=== PATIENT | male | born 1955 | race Caucasian/White ===

== ENCOUNTER 2019-06-18 20:31 | Inpatient (IN) | payer OTHER, SELFPAY ==
--- NOTE | ~2019-06-18 | XR_ITS ---
EXAMINATION: XR chest 2V 06/18/2019 21:31 INDICATION: Chest pain for one week PROCEDURE: 2 view chest COMPARISON: 07/26/2012 FINDINGS: The lungs are clear. The cardiomediastinal silhouette is within normal limits. There are no pleural effusions. There is no pneumothorax suspected. IMPRESSION: 1: NO ACUTE CARDIOPULMONARY DISEASE. Reviewed, dictated and finalized at location A. EMARK AFFIXER
--- NOTE | ~2019-06-18 | XR_ITS ---
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 There is old fracture deformit y of the calcaneus. No acute fracture or traumatic malalignment. Lisfranc joint intact. No focal soft tissue abnormality. Small degenerative calcaneal enthesophyte. Impression: 1: No acute fracture. No evidence for osteomyelitis. If there is concern for osteomyelitis clinically , correlation with MRI recommended. Reviewed, dictated and finalized at location A. COORDINATOR Impression: 1: No acute fracture. No evidence for osteomyelitis. If there is concern for os teomyelitis clinically, correlation with MRI recommended.
[2019-06-18 20:34] VITALS: BP 158/94; PULSE 128; RESP 18; TEMP 36.4; O2SAT 98
[2019-06-18 20:39] VITALS: BP 146/95; PULSE 124; RESP 20; O2SAT 98
--- NOTE | 2019-06-18 20:50 | ED.EXTPRO ---
HPI - Extremity Problem General Chief complaint: Extremity Injury, Lower Stated complaint: left foot discoloration Time Seen by Provider: 06/18/19 20:40 Source: patient and RN notes reviewed Mode of arrival: ambulatory Limitations: no limitations History of Present Illness HPI Narrative: Pt is a 64 y/o male with a Hx of DM and diabetic retinopathy, who presents to the ED with c/o swelling and pain in his LLE for the past week. He notes that he has had a wound on his lt great toe for awhile, but states that he has noticed increased swelling and pain in his lt foot over the past week. Pt notes that his pain has begun to radiate into his lt lower leg. He describes his pain as sharp, and notes that bearing weight on his lt leg aggravates his pain. Pt reports intermittent CP, but last episode of chest pain was several days ago. Pt also reports erythema on his lt foot starting several days ago as well as nausea, but currently denies any vomiting, fever, chills, CP, or SOB. He notes that he is prescribed Metformin, Glipizide, and insulin for his DM, but states that he hasn't taken these medications for the past several weeks. Pt notes that his BS has been rather sporadic recently. MD Complaint: extremity pain and extremity swelling Onset (ago): week(s) (1) Location: left and lower extremity Quality: sharp Radiation: proximal (lt lower leg) Exacerbating factors: weight bearing Associated symptoms: other (nausea; erythema on lt foot; wound on lt great toe) Related Data Allergies Allergy/AdvReac Type Severity Reaction Status Date / Time No Known Allergies Allergy Mild Unverified 06/18/19 20:44 Review of Systems Review of Systems: All systems reviewed & are unremarkable except as noted in HPI and below Constitutional: Constitutional: Denies chills, Denies fever(s), Denies headache(s) and Denies weakness Cardiovascular: Cardiovascular: Denies chest pain and Denies dyspnea Respiratory: Respiratory: Denies cough and Denies dyspnea Gastrointestinal: Gastrointestinal: Reports nausea Musculoskeletal: Musculoskeletal: Reports other (lt foot pain radiating into lt lower leg; swelling in lt foot) Integumentary/Breasts: Skin/Breast: Reports erythema (on lt foot) and Reports wounds (lt great toe) PMFSH Past Medical History Medical History Anxiety Atrial fibrillation Depression Diabetes Diabetic retinopathy Hepatitis C HLD (hyperlipidemia) HTN (hypertension) Surgical History Surgical History Hx of appendectomy Hx of tonsillectomy Family History Family History (Updated 12/14/15 @ 23:19 by DOCTOR UNKNOWN) Father Family history of diabetes mellitus in first degree relative Other Family history of coronary artery disease Social History Social History Smoking status: Heavy tobacco smoker Second hand tobacco smoke exposure: Yes Alcohol intake: current Gender identity (if verbalized by the patient): Male Exam Const: General: no acute distress and well developed Orientation/consciousness: oriented to person, oriented to place, oriented to time and patient oriented x3 HENMT: Head: normocephalic Resp: Effort & Inspection: normal respiratory effort Auscultation: clear to auscultation bilaterally Cardio: Rate: tachycardic Rhythm: regular rhythm GI: GI Palp: No abdominal tenderness and Yes Soft to palpation Skin: General skin exam: normal color and turgor normal Neuro: General: oriented to person, oriented to place, oriented to time and patient oriented x3 Cognition (Neuro): normal cognition Extrem: General: normal to inspection Left lower extremity: foot (erythema extending from lt great toe into lt foot and lt lower leg) Psych: Appearance: grossly normal Mental Status: mental status grossly normal Affect: normal affect Course Consultations Consultation #1: Discuss
--- NOTE | 2019-06-18 20:54 | ECG_ITS ---
Measurements Intervals [place] Rate: 115 P: 72 MD: 148 QRS: 44 QRSD: 86 T: 83 QT: 317 QTc: 439 Interpretive Statements SINUS TACHYCARDIA POSSIBLE LEFT ATRIAL ENLARGEMENT BORDERLINE T WAVE ABNORMALITY- LATERAL LEADS ABNORMAL ECG Electronically Signed On 06-19-2019 7:57:58 S[employer]IOR [employer] ENG[employer] by Noble Pedraza D.O.
[2019-06-18 21:11] LABS: Glucose Point of Care 468 (65-105)
[2019-06-18 21:17] LABS: Basophils Percent Auto 0.4 % (0.2-1.2); Eosinophils Absolute Auto 0.2 K/mm3 (0-0.3); Eosinophils Percent Auto 2.2 % (0-4.4); Hematocrit 45.6 % (42.0-52.0); Hemoglobin 15.5 g/dL (14.0-18.0); Immature Granulocyte Absolute 0.02 K/mm3 (0.00-0.031); Immature Granulocyte Percent A 0.2 % (0-0.5); Lymphocytes Absolute Auto 1.34 K/mm3 (0.9-3.2); Lymphocytes Percent Auto 16.6 % (18.3-44.2); Mean Corpuscular Volume 85.4 fl (80-100); Mean Platelet Volume 10.6 fl (7.4-10.4); Monocytes Absolute Auto 0.6 K/mm3 (0.1-0.6); Monocytes Percent Auto 7.2 % (2.6-8.5); Neutrophils Absolute Auto 5.9 K/mm3 (1.3-6.7); Neutrophils Percent Auto 73.4 % (45.5-73.1); Platelet Count Result 216 k/mm3 (150-375); Red Blood Count 5.34 M/mm3 (4.6-6.20); Red Cell Distribution Width 12.7 % (11.5-14.5); White Blood Count 8.1 K/mm3 (4.5-10.0)
[2019-06-18 21:31] LABS: Lactic Acid Reflex 1.5 mmol/L (0.7-2.1)
[2019-06-18 21:35] LABS: Alanine Aminotransferase 66 U/L (4-50); Albumin Level 4.5 g/dL (3.5-5.1); Alkaline Phosphatase 171 U/L (38-126); Aspartate Amino Transferase 60 U/L (17-59); Bilirubin,Total 0.7 mg/dL (0.2-1.3); Blood Urea Nitrogen 16 mg/dL (9-20); CRP 8.4 mg/dL (<1.0); Calcium 9.6 mg/dL (8.4-10.2); Carbon Dioxide 26 mmol/L (22-30); Chloride 91 mmol/L (98-107); Estimated CRCL calculation 83 ml/min; Estimated Glomerular Filt Rate > 60; Glucose 483 mg/dL (75-110); Potassium 4.2 mmol/L (3.4-5.0); Sodium 132 mmol/L (137-145)
[2019-06-18 21:39] LABS: Erythrocyte Sedimentation Rate 27 mm/hr (0-20)
[2019-06-18 21:43] LABS: Troponin I < 0.012 ng/mL (0.000-0.034)
[2019-06-18] MEDS: INSULIN HUMAN REGULAR (*BKC) 100 UNITS/ML 10 UNITS IV PUSH (21:48)
[2019-06-18] MEDS: SODIUM CHLORIDE 0.9% IV 1,000 ML 999 ML IV CONT (21:49)
[2019-06-18 22:38] VITALS: BP 138/87; PULSE 109; RESP 18; O2SAT 99
[2019-06-18 23:25] VITALS: BP 138/87; PULSE 115; RESP 18; O2SAT 97
[2019-06-18 23:26] LABS: Glucose Point of Care 415 (65-105)
--- NOTE | 2019-06-18 23:27 | PC.NURSE ---
Report taken from Katharine BLACKWELL
[2019-06-19 00:12] VITALS: BP 144/85; PULSE 112; RESP 22; TEMP 36.8; O2SAT 98; BMI 26.3
[2019-06-19 00:37] LABS: Glucose Point of Care 341 (65-105)
[2019-06-19 01:05] LABS: Troponin I < 0.012 ng/mL (0.000-0.034)
--- NOTE | 2019-06-19 01:09 | ADMGEN ---
This patient, Humberto Helms, was admitted to 2 Medical Room 259-01 06/18/2019 @ 8240. Patient/family oriented to hospital policies and general routines including ID bracelet, bed and alarms, visiting hours, pain management, procedures, bathroom and other care routines, personal items, smoking policy, room service/diet, and visiting hours. Valuables list has been completed. Information on how to activate the Rapid Response Team has been discussed. Patient/Family are encouraged to report perceived risks to care and to ask questions if they do not understand what they are told or what they should do.
[2019-06-19 03:50] LABS: Troponin I < 0.012 ng/mL (0.000-0.034)
[2019-06-19] MEDS: INSULIN ASPART (*BKC) 100 UNITS/ML SUB-Q ×4 (04:21→16:58)
[2019-06-19 04:25] LABS: Glucose Point of Care 412 (65-105)
[2019-06-19 06:00] VITALS: BP 112/70; PULSE 106; RESP 18; TEMP 36.6; O2SAT 94
[2019-06-19 08:40] LABS: Glucose Point of Care 361 (65-105)
[2019-06-19 12:07] LABS: Glucose Point of Care 396 (65-105)
[2019-06-19 14:00] VITALS: BP 116/73; PULSE 103; RESP 16; TEMP 36.4; O2SAT 95
--- NOTE | 2019-06-19 15:54 | PM.IMHP ---
H&P: HPI History of Present Illness Chief complaint: left foot cellulitis Narrative: 64 y/o male with a Hx of DM and diabetic retinopathy, who presents to the ED with c/o swelling and pain in his LLE for the past week. Pt has a sore on the bottom of his left foot big toe noticed it one week ago redness went up his foot and leg. pt had severe pain the the left leg so that he could not bear and he came in for evaluation. Pt states he is a DM but is not good with taking his medications. XRay of foot shows no osteomyeltis. CXR nil acute. Review of Systems Review of Systems: All systems reviewed & are unremarkable except as noted in HPI and below Musculoskeletal: Comments: left leg pain, left foot pain and redness PMFSH Past Medical History Medical History Anxiety Atrial fibrillation Depression Diabetes Diabetic retinopathy Hepatitis C HLD (hyperlipidemia) HTN (hypertension) Surgical History Surgical History Hx of appendectomy Hx of tonsillectomy Family History Family History Father Family history of diabetes mellitus in first degree relative Other Family history of coronary artery disease Social History Social History Smoking packs per day: 1 Smoking cigarettes per day: 20.0 Years smoked: 53 Smoking pack-years: 53.00 Smoking status: Current every day smoker Tobacco type: cigarettes Second hand tobacco smoke exposure: Yes Alcohol intake: never Substance use: former Substance use type: does not use and former substance user Other substance usage details: pt states he has used everything in the past. Nothing for the past year Gender identity (if verbalized by the patient): Male Meds Home Medications and Allergies Home Medications Medication Instructions Recorded Confirmed Type glimepiride 4 mg PO DAILY 06/19/19 06/19/19 History insulin glargine [Basaglar KwikPen 6 unit SUBCUT DAILY 06/19/19 06/19/19 History U-100 Insulin] metformin 1,000 mg PO BID 06/19/19 06/19/19 History pravastatin 10 mg PO DAILY 06/19/19 06/19/19 History Allergies Allergy/AdvReac Type Severity Reaction Status Date / Time No Known Allergies Allergy Mild Unverified 06/18/19 20:44 Vital Signs Vital Signs - 24 hr 06/18/19 20:34 06/18/19 20:39 06/18/19 22:38 Temperature 36.4 C L Pulse Rate 128 H 124 H 109 H Respiratory Rate 18 20 18 Blood Pressure 158/94 H 146/95 H 138/87 Pulse Oximetry 98 98 99 06/18/19 23:25 06/19/19 00:12 06/19/19 06:00 Temperature 36.8 C 36.6 C Pulse Rate 115 H 112 H 106 H Respiratory Rate 18 22 H 18 Blood Pressure 138/87 144/85 H 112/70 Pulse Oximetry 97 98 94 06/19/19 14:00 Temperature 36.4 C Pulse Rate 103 H Respiratory Rate 16 Blood Pressure 116/73 Pulse Oximetry 95 Exam Const: General: well developed Nutritional Appearance: well nourished HENMT: Head: normocephalic Eyes: General: appearance normal, both eyes and all related structures Pupils: Equal, round and reactive pupils present Neck: Neck: supple Chest: Chest palpation & inspection: normal inspection of the chest Resp: Effort & Inspection: normal respiratory effort Auscultation: clear to auscultation bilaterally Cardio: Jugular venous distension: no JVD Rhythm: regular rhythm Heart sounds: S1 normal heart sound present and S2 normal heart sound present GI: Inspection: normal to inspection GI Palp: No abdominal tenderness, Yes Soft to palpation and No Tenderness to palpation present (GI) Auscultation: normal bowel sounds : General: Yes no CVA tenderness Back/Spine/Pelvis: Back: no CVA tenderness Skin: General skin exam: normal color and dry skin Neuro: Cranial nerves: Yes CN's II-XII intact bilaterally and Yes Equal, round and reactive pupils pres
[2019-06-19 16:59] LABS: Glucose Point of Care 380 (65-105)
[2019-06-19] MEDS: metFORMIN HCL 500 MG TABLET 1000 MG PO (17:00)
[2019-06-19] MEDS: ENOXAPARIN 40 MG/0.4 ML SYRINGE SUB-Q (17:00)
[2019-06-19 20:40] LABS: Glucose Point of Care 316 (65-105)
[2019-06-19 22:00] VITALS: BP 125/71; PULSE 110; RESP 18; TEMP 36.1; O2SAT 93
[2019-06-20 06:00] VITALS: BP 127/78; PULSE 101; RESP 16; TEMP 36; O2SAT 93
[2019-06-20 07:27] LABS: Hematocrit 38.6 % (42.0-52.0); Mean Corpuscular HGB Conc 33.7 g/dl (32-36); Mean Corpuscular Hemoglobin 29.1 pg (26-34); Mean Corpuscular Volume 86.4 fl (80-100); Mean Platelet Volume 10.9 fl (7.4-10.4); Platelet Count Result 194 k/mm3 (150-375); Red Blood Count 4.47 M/mm3 (4.6-6.20); Red Cell Distribution Width 12.7 % (11.5-14.5); White Blood Count 7.3 K/mm3 (4.5-10.0)
[2019-06-20 07:31] LABS: Blood Urea Nitrogen 14 mg/dL (9-20); Calcium 8.5 mg/dL (8.4-10.2); Carbon Dioxide 23 mmol/L (22-30); Chloride 100 mmol/L (98-107); Estimated CRCL calculation 93 ml/min; Estimated Glomerular Filt Rate > 60; Glucose 301 mg/dL (75-110); Potassium 3.7 mmol/L (3.4-5.0); Sodium 135 mmol/L (137-145)
[2019-06-20] MEDS: INSULIN GLARGINE (*BKC) 100 UNITS/ML 6 UNITS SUB-Q (07:47)
[2019-06-20] MEDS: INSULIN ASPART (*BKC) 100 UNITS/ML SUB-Q ×2 (07:48→11:52)
[2019-06-20] MEDS: metFORMIN HCL 500 MG TABLET 1000 MG PO ×2 (07:50→17:23)
[2019-06-20 07:51] LABS: Glucose Point of Care 320 (65-105)
[2019-06-20] MEDS: PRAVASTATIN SODIUM 10 MG TABLET PO (07:51)
[2019-06-20] MEDS: GLIMEPIRIDE 2 MG TABLET 4 MG PO (07:51)
[2019-06-20 10:32] LABS: Hemoglobin A1C > 14.0 % (<5.7)
[2019-06-20 11:39] LABS: Glucose Point of Care 243 (65-105)
[2019-06-20] MEDS: SILVERGEL (ELTA) 45 ML 1 APPLIC TOPICAL (11:54)
[2019-06-20 13:15] VITALS: BMI 26.3
[2019-06-20 14:00] VITALS: BP 131/75; PULSE 108; RESP 16; TEMP 36.4; O2SAT 95
--- NOTE | 2019-06-20 15:56 | PM.IMPN ---
Progress Note: A&P Assessment and Plan (1) Cellulitis of great toe of left foot: Code(s): L03.032 - Cellulitis of left toe Status: Acute Assessment and Plan: Patient is 63-year-old male with history of uncontrolled diabetes with A1c of greater than 14 and diabetic neuropathy patient had been incarcerated is not seen a physician sometime presented emergency department with a complaint of left lower extremity rates knees painful and sore present is found to have a cellulitis patient started on Zosyn states is feeling better pain and redness is improving denies any fever or chills, patient is seen by wound team and further recommendation to (2) Anxiety: Code(s): F41.9 - Anxiety disorder, unspecified Status: Acute Assessment and Plan: Appears stable presently, i do not see any anxiety medications on him. However patient is clinically stable (3) Diabetes: Code(s): E11.9 - Type 2 diabetes mellitus without complications Status: Acute Assessment and Plan: Patient with uncontrolled diabetes with hemoglobin A1c of greater than 14 he is only taking metformin at will consult healthcare educator for further recommendation (4) Hepatitis C: Code(s): B19.20 - Unspecified viral hepatitis C without hepatic coma Status: Chronic Assessment and Plan: Chronic and stable (5) HLD (hyperlipidemia): Code(s): E78.5 - Hyperlipidemia, unspecified Status: Acute Assessment and Plan: Pt is on statin continue home medication Subjective Date/time seen: 06/20/19 15:56 Patient is 63-year-old male with history of uncontrolled diabetes with A1c of greater than 14 and diabetic neuropathy patient had been incarcerated is not seen a physician sometime presented emergency department with a complaint of left lower extremity rates knees painful and sore present is found to have a cellulitis patient started on Zosyn states is feeling better pain and redness is improving denies any fever or chills Review of Systems Review of Systems: All systems reviewed & are unremarkable except as noted in HPI and below Exam Narrative: Exam Narrative: Patient appears chronically ill older than his age Const: General: comfortable and no acute distress HENMT: General nose exam: Normal nares present Mouth: Yes moist mucous membranes Eyes: General: appearance normal, both eyes and all related structures Sclera: sclerae normal Neck: Neck: supple Resp: Other: Bilateral fair air entry with harsh breath sounds Cardio: Rate: regular rate Rhythm: regular rhythm GI: Auscultation: normal bowel sounds Skin: Other: left toe with wound dressing Neuro: Speech: normal speech Other: patient with diabetes neuropathy Extrem: Other: Patient left foot with wound dressing and erythema Psych: Affect: Anxious affect present Objective Data Vital Signs Vital Signs: Vital Signs - 24 hr 06/19/19 22:00 06/20/19 06:00 06/20/19 14:00 Temperature 96.9 F L 96.8 F L 97.6 F Pulse Rate 110 H 101 H 108 H Respiratory Rate 18 16 16 Blood Pressure 125/71 127/78 131/75 Pulse Oximetry 93 93 95 Intake/Output Intake/Output: Intake & Output 06/17/19 06/18/19 06/19/19 06/20/19 23:59 23:59 23:59 23:59 Intake Total 1050 4170 1130 Output Total 2200 Balance 1050 1970 1130 Meds/Results Medications: Active Medications Generic Name Dose Route Start Last Admin Trade Name Freq PRN Reason Stop Dose Admin Dextrose 12.5 gm 06/19/19 02:16 Dextrose 50% Syringe IV PUSH PRN PRN Hypoglycemia Protocol Glimepiride 4 mg 06/20/19 08:00 06/20/19 07:51 Amaryl PO 4 mg DAILY@0800 OMI Administration Glucagon 1 mg 06/19/19 02:16 Glucagon For Inj IM PRN PRN Hypoglycemia Protocol Glucose 15 gm 06/19/19 02:16 Glutose 15 PO PRN PRN Hypoglycemia Protocol Piperacillin/Tazobactam/Dextrose 3.375 gm in 50 mls @ 100 mls/hr 06/19/19 06:0
[2019-06-20 17:28] LABS: Glucose Point of Care 177 (65-105)
[2019-06-20 19:59] LABS: Glucose Point of Care 266 (65-105)
[2019-06-20 22:00] VITALS: BP 145/89; PULSE 102; RESP 16; TEMP 36.7; O2SAT 98
[2019-06-21 05:41] LABS: Basophils Percent Auto 0.3 % (0.2-1.2); Eosinophils Absolute Auto 0.2 K/mm3 (0-0.3); Eosinophils Percent Auto 2.9 % (0-4.4); Hematocrit 37.3 % (42.0-52.0); Hemoglobin 12.6 g/dL (14.0-18.0); Immature Granulocyte Absolute 0.02 K/mm3 (0.00-0.031); Immature Granulocyte Percent A 0.3 % (0-0.5); Lymphocytes Percent Auto 27.1 % (18.3-44.2); Mean Corpuscular HGB Conc 33.8 g/dl (32-36); Mean Corpuscular Volume 85.9 fl (80-100); Mean Platelet Volume 10.2 fl (7.4-10.4); Monocytes Absolute Auto 0.6 K/mm3 (0.1-0.6); Neutrophils Percent Auto 60.4 % (45.5-73.1); Platelet Count Result 200 k/mm3 (150-375); Red Blood Count 4.34 M/mm3 (4.6-6.20); Red Cell Distribution Width 12.6 % (11.5-14.5); White Blood Count 6.6 K/mm3 (4.5-10.0)
[2019-06-21 05:55] LABS: Blood Urea Nitrogen 12 mg/dL (9-20); Calcium 8.6 mg/dL (8.4-10.2); Carbon Dioxide 25 mmol/L (22-30); Chloride 102 mmol/L (98-107); Estimated CRCL calculation 105 ml/min; Estimated Glomerular Filt Rate > 60; Glucose 213 mg/dL (75-110); Potassium 3.8 mmol/L (3.4-5.0); Sodium 136 mmol/L (137-145)
[2019-06-21 06:00] VITALS: BP 130/83; PULSE 92; RESP 16; TEMP 36.9; O2SAT 95
[2019-06-21] MEDS: PRAVASTATIN SODIUM 10 MG TABLET PO (08:21)
[2019-06-21] MEDS: GLIMEPIRIDE 2 MG TABLET 4 MG PO (08:21)
[2019-06-21] MEDS: metFORMIN HCL 500 MG TABLET 1000 MG PO ×2 (08:21→16:24)
[2019-06-21] MEDS: SILVERGEL (ELTA) 45 ML 1 APPLIC TOPICAL (08:22)
[2019-06-21] MEDS: INSULIN GLARGINE (*BKC) 100 UNITS/ML 6 UNITS SUB-Q (08:32)
[2019-06-21] MEDS: INSULIN ASPART (*BKC) 100 UNITS/ML SUB-Q ×3 (08:36→16:24)
[2019-06-21 08:47] LABS: Glucose Point of Care 225 (65-105)
[2019-06-21 12:30] LABS: Glucose Point of Care 246 (65-105)
[2019-06-21 14:00] VITALS: BP 125/81; PULSE 99; RESP 16; TEMP 37.3; O2SAT 96
--- NOTE | 2019-06-21 16:32 | PM.IMPN ---
Progress Note: A&P Assessment and Plan (1) Cellulitis of great toe of left foot: Code(s): L03.032 - Cellulitis of left toe Status: Acute Assessment and Plan: Patient is 63-year-old male with history of uncontrolled diabetes with A1c of greater than 14 and diabetic neuropathy patient had been incarcerated is not seen a physician sometime presented emergency department with a complaint of left lower extremity rates knees painful and sore present is found to have a cellulitis patient started on Zosyn states is feeling better pain and redness is improving denies any fever or chills, patient is seen by wound team and further recommendation to to follow, today again patient is feeling better cellulitis improving will monitor 1 more day and may discharge the patient home tomorrow on oral antibiotics (2) Anxiety: Code(s): F41.9 - Anxiety disorder, unspecified Status: Acute Assessment and Plan: Appears stable presently, i do not see any anxiety medications on him. However patient is clinically stable (3) Diabetes: Code(s): E11.9 - Type 2 diabetes mellitus without complications Status: Acute Assessment and Plan: Patient with uncontrolled diabetes with hemoglobin A1c of greater than 14 he is only taking metformin at will consult plumbing drafter for further recommendation (4) Hepatitis C: Code(s): B19.20 - Unspecified viral hepatitis C without hepatic coma Status: Chronic Assessment and Plan: Chronic and stable (5) HLD (hyperlipidemia): Code(s): E78.5 - Hyperlipidemia, unspecified Status: Acute Assessment and Plan: Pt is on statin continue home medication Subjective Date/time seen: 06/21/19 16:32 Patient is 63-year-old male with history of uncontrolled diabetes with A1c of greater than 14 and diabetic neuropathy patient had been incarcerated is not seen a physician sometime presented emergency department with a complaint of left lower extremity rates knees painful and sore present is found to have a cellulitis patient started on Zosyn states is feeling better pain and redness is improving denies any fever or chills, patient is seen by wound team and further recommendation to follow. Today again patient being feeling better Review of Systems Review of Systems: All systems reviewed & are unremarkable except as noted in HPI and below Exam Narrative: Exam Narrative: Patient appears chronically ill older than his age Const: General: comfortable, no acute distress and well developed Nutritional Appearance: well nourished HENMT: Head: normocephalic General nose exam: Normal nares present Mouth: Yes moist mucous membranes Eyes: General: appearance normal, both eyes and all related structures Sclera: sclerae normal Neck: Neck: supple Chest: Chest palpation & inspection: normal inspection of the chest Resp: Effort & Inspection: normal respiratory effort Auscultation: clear to auscultation bilaterally Other: Bilateral fair air entry with harsh breath sounds Cardio: Jugular venous distension: no JVD Rate: regular rate Rhythm: regular rhythm Heart sounds: S1 normal heart sound present and S2 normal heart sound present GI: Inspection: normal to inspection Auscultation: normal bowel sounds : General: Yes no CVA tenderness Back/Spine/Pelvis: Back: no CVA tenderness Skin: General skin exam: normal color and dry skin Other: left toe with wound dressing Neuro: Cranial nerves: Yes CN's II-XII intact bilaterally and Yes Equal, round and reactive pupils present Cognition (Neuro): normal cognition Speech: normal speech Motor exam (neuro): 5/5 motor strength present throughout Other: patient with diabetes neuropathy Extrem: General: capillary refill normal (good pulses in. left leg. good color ) and other (left big toe red and swollen pt has a sore on the bottom of his big toe) Other: Patient left foot with wound dressing and erythema Psych:
[2019-06-21 17:29] LABS: Glucose Point of Care 210 (65-105)
[2019-06-21 22:00] VITALS: BP 145/79; PULSE 93; RESP 20; TEMP 36.4; O2SAT 98
[2019-06-22 05:27] LABS: Glucose Point of Care 188 (65-105)
[2019-06-22 06:00] VITALS: BP 106/57; PULSE 88; RESP 20; TEMP 36.1; O2SAT 98
[2019-06-22 06:21] LABS: Basophils Percent Auto 0.5 % (0.2-1.2); Eosinophils Absolute Auto 0.3 K/mm3 (0-0.3); Hematocrit 37.2 % (42.0-52.0); Hemoglobin 12.5 g/dL (14.0-18.0); Immature Granulocyte Absolute 0.02 K/mm3 (0.00-0.031); Immature Granulocyte Percent A 0.3 % (0-0.5); Lymphocytes Absolute Auto 1.56 K/mm3 (0.9-3.2); Lymphocytes Percent Auto 24.2 % (18.3-44.2); Mean Corpuscular HGB Conc 33.6 g/dl (32-36); Mean Corpuscular Hemoglobin 29.1 pg (26-34); Mean Corpuscular Volume 86.5 fl (80-100); Mean Platelet Volume 10.2 fl (7.4-10.4); Monocytes Absolute Auto 0.5 K/mm3 (0.1-0.6); Monocytes Percent Auto 8.2 % (2.6-8.5); Neutrophils Percent Auto 62.8 % (45.5-73.1); Platelet Count Result 211 k/mm3 (150-375); Red Cell Distribution Width 12.7 % (11.5-14.5); White Blood Count 6.4 K/mm3 (4.5-10.0)
[2019-06-22 06:42] LABS: Blood Urea Nitrogen 10 mg/dL (9-20); Calcium 8.7 mg/dL (8.4-10.2); Carbon Dioxide 23 mmol/L (22-30); Chloride 101 mmol/L (98-107); Estimated CRCL calculation 121 ml/min; Estimated Glomerular Filt Rate > 60; Glucose 182 mg/dL (75-110); Potassium 3.6 mmol/L (3.4-5.0); Sodium 134 mmol/L (137-145)
[2019-06-22] MEDS: GLIMEPIRIDE 2 MG TABLET 4 MG PO (08:02)
[2019-06-22] MEDS: PRAVASTATIN SODIUM 10 MG TABLET PO (08:02)
[2019-06-22] MEDS: metFORMIN HCL 500 MG TABLET 1000 MG PO (08:02)
[2019-06-22] MEDS: SILVERGEL (ELTA) 45 ML 1 APPLIC TOPICAL (08:06)
[2019-06-22] MEDS: INSULIN ASPART (*BKC) 100 UNITS/ML SUB-Q (08:15)
[2019-06-22 09:38] LABS: Glucose Point of Care 204 (65-105)
--- NOTE | 2019-06-22 11:05 | PM.DS ---
DS: Diagnosis Admitting Diagnosis Admitting Diagnosis: Cellulitis of left toe Discharge Diagnosis (1) Cellulitis of great toe of left foot: Code(s): L03.032 - Cellulitis of left toe Status: Acute Assessment and Plan: Patient is 63-year-old male with history of uncontrolled diabetes with A1c of greater than 14 and diabetic neuropathy patient had been incarcerated is not seen a physician sometime presented emergency department with a complaint of left lower extremity rates knees painful and sore present is found to have a cellulitis patient started on Zosyn states is feeling better pain and redness is improving denies any fever or chills, patient is seen by wound team and further recommendation to to follow, today again patient is feeling better cellulitis improving will monitor 1 more day and may discharge the patient home tomorrow on oral antibiotics (2) Anxiety: Code(s): F41.9 - Anxiety disorder, unspecified Status: Acute Assessment and Plan: Appears stable presently, i do not see any anxiety medications on him. However patient is clinically stable (3) Diabetes: Code(s): E11.9 - Type 2 diabetes mellitus without complications Status: Acute Assessment and Plan: Patient with uncontrolled diabetes with hemoglobin A1c of greater than 14 he is only taking metformin at will consult family living educator for further recommendation (4) Hepatitis C: Code(s): B19.20 - Unspecified viral hepatitis C without hepatic coma Status: Chronic Assessment and Plan: Chronic and stable (5) HLD (hyperlipidemia): Code(s): E78.5 - Hyperlipidemia, unspecified Status: Acute Assessment and Plan: Pt is on statin continue home medication DS: Summary Hospital Course Reason for hospitalization: 64 y/o male with a Hx of DM and diabetic retinopathy, who presents to the ED with c/o swelling and pain in his LLE for the past week. Pt has a sore on the bottom of his left foot big toe noticed it one week ago redness went up his foot and leg. pt had severe pain the the left leg so that he could not bear and he came in for evaluation. Pt states he is a DM but is not good with taking his medications. XRay of foot shows no osteomyeltis. CXR nil acute. Hospital Course: Patient is 63-year-old male with history of uncontrolled diabetes with A1c of greater than 14 and diabetic neuropathy patient had been incarcerated is not seen a physician sometime presented emergency department with a complaint of left lower extremity rates knees painful and sore present is found to have a cellulitis patient started on Zosyn states is feeling better pain and redness is improving denies any fever or chills, patient is seen by wound team and further recommendation to to follow, today again patient is feeling better cellulitis improving monitored 1 more day today patient was seen by wound team wound is healing well will discharge the patient home on oral antibiotic, patient instructed the please follow-up his primary care doctor and closely monitor his diabetes his hemoglobin A1c is 14. Status at Discharge Cognitive/behavioral status at discharge: Patient is back to baseline Functional status at discharge: uses cane/walker Overall status at discharge: patient is back to baseline Time Spent with Patient Time attestation: Total time spent providing and/or coordinating discharge services: Patient was seen and examined at the time of the discharge Condition at discharge is stable Code status: Full code. Time spent preparing discharge summary, discharge medications, discussing discharge planning with medical case worker and patient is 35 minutes. Time spent: Greater than 30 minutes Exam Const: General: comfortable and no acute distress HENMT: General nose exam: Normal nares present Mouth: Yes dry mucous membranes Eyes: General: appearance normal, both eyes and all related structures Sclera: sclerae normal Neck: Neck:
== END 2019-06-22 12:15 | disposition home or self-care (01) | DRG 383 ==
LOC: ANHED 22:42 → ANH2MED 22:56
PROVIDERS: Family Medicine; Admitting Provider Family Medicine; Emergency Provider Emergency Medicine; PCP Internal Medicine; Visit Provider Family Medicine
DX: L03.032 Cellulitis of left toe (principal); F41.9 Anxiety disorder, unspecified; B19.20 Unspecified viral hepatitis C without hepatic coma; E78.5 Hyperlipidemia, unspecified; E11.319 Type 2 diabetes mellitus with unspecified diabetic retinopathy without macular edema; E11.42 Type 2 diabetes mellitus with diabetic polyneuropathy; I10 Essential (primary) hypertension; B18.2 Chronic viral hepatitis C; E11.65 Type 2 diabetes mellitus with hyperglycemia; R00.0 Tachycardia, unspecified; F17.210 Nicotine dependence, cigarettes, uncomplicated; Z28.21 Immunization not carried out because of patient refusal
CPT/HCPCS: 36415; 71046; 73630; 80048; 80053; 83036; 83605; 84484; 85025; 85027; 85652; 86140; 87040; 93005; 96365; 96366; 96372; 96375; 99285; A9270; G0378; G0379; J1650; J1815; J2543; J3370; J7030

== ENCOUNTER 2020-06-10 06:25 | Inpatient (IN) | payer OTHER, SELFPAY ==
[2020-06-10] VITALS (11 sets, daily range): BP systolic 120–150; BP diastolic 74–99; PULSE 102–118; RESP 16–20; TEMP 36.6–37.1; O2SAT 93–100; BMI 23.4
--- NOTE | ~2020-06-10 | XR_ITS ---
EXAMINATION: XR chest 2V DATE: 06/10/2020 07:30 INDICATION: Chest pain TECHNIQUE: AP and lateral views of the chest are obtained. COMPARISON: 06/18/2019 FINDINGS: The lungs are free of acute opacities. There is no pleural effusion or pneumothorax. The ca rdiomediastinal silhouette is normal. There is moderate thoracic spondylosis. IMPRESSION: 1. No acute cardiopulmonary abnormality. Reviewed, dictated and finalized at location [facility]
--- NOTE | 2020-06-10 06:34 | ECG_ITS ---
Measurements Intervals [place] Rate: 115 P: [place]: 0 QRS: 77 QRSD: 91 T: 76 QT: 324 QTc: 449 Interpretive Statements SINUS TACHYCARDIA ABNORMAL ECG Electronically Signed On 06-10-2020 7:45:01 [employer] [facility] by Noble Pedraza D.O.
[2020-06-10 06:40] LABS: Glucose Point of Care > 500 (65-105)
[2020-06-10 06:43] LABS: Basophils Percent Auto 0.2 % (0.2-1.2); Eosinophils Absolute Auto 0.1 K/mm3 (0-0.3); Eosinophils Percent Auto 0.8 % (0-4.4); Hematocrit 47.3 % (42.0-52.0); Hemoglobin 16.7 g/dL (14.0-18.0); Immature Granulocyte Absolute 0.05 K/mm3 (0.00-0.031); Immature Granulocyte Percent A 0.4 % (0-0.5); Lymphocytes Absolute Auto 1.27 K/mm3 (0.9-3.2); Lymphocytes Percent Auto 10.6 % (18.3-44.2); Mean Corpuscular HGB Conc 35.3 g/dl (32-36); Mean Corpuscular Hemoglobin 31.5 pg (26-34); Mean Corpuscular Volume 89.1 fl (80-100); Monocytes Absolute Auto 0.6 K/mm3 (0.1-0.6); Monocytes Percent Auto 4.9 % (2.6-8.5); Neutrophils Percent Auto 83.1 % (45.5-73.1); Platelet Count Result 189 k/mm3 (150-375); Red Blood Count 5.31 M/mm3 (4.6-6.20); Red Cell Distribution Width 12.1 % (11.5-14.5)
[2020-06-10] MEDS: ONDANSETRON INJ 4 MG/2 ML VIAL IV PUSH (06:49)
[2020-06-10] MEDS: ASPIRIN 81 MG CHEWABLE TABLET 324 MG PO (06:49)
[2020-06-10] MEDS: INSULIN HUMAN REGULAR (*BKC) 100 UNITS/ML 10 UNITS IV PUSH ×2 (06:50→08:03)
[2020-06-10] MEDS: SODIUM CHLORIDE 0.9% IV 1,000 ML 999 ML IV CONT ×2 (06:50→07:33)
[2020-06-10 06:56] LABS: INR 0.9; Partial Thromboplastin Time 24.1 SECONDS (22.3-36.8); Prothrombin Time 12.8 Seconds (11.1-14.7)
[2020-06-10 06:58] LABS: Anion Gap 8 mmol/L (8-16); Blood Urea Nitrogen 25 mg/dL (9-20); Calcium 9.3 mg/dL (8.4-10.2); Carbon Dioxide 31 mmol/L (22-30); Chloride 94 mmol/L (98-107); Estimated CRCL calculation 85 ml/min; Estimated Glomerular Filt Rate > 60; Glucose 541 mg/dL (75-110); Potassium 4.6 mmol/L (3.4-5.0); Sodium 133 mmol/L (137-145)
--- NOTE | 2020-06-10 07:04 | ED.CHESTPAIN ---
HPI - Chest Pain General Chief Complaint: Chest Pain Stated Complaint: cp, ams, high blood glucose, n/v Time Seen by Provider: 06/10/20 07:04 History of Present Illness HPI narrative: 65 yo male w/ h/o DM, left BKA, HTN, a-fib presents to the ED for multiple complaints. He has been feeling sick and not able to control his blood sugar for the past few days. Symptoms include Right sided chest pain. Constant. dull. No radiation. SOB, chronic. Sweats and chills. Nausea, vomiting, and diarrhea since this morning. He also reports some occasional pain in the left groin. Vitals and labs done during triage show that he is tachycardic with mild leukocytosis and glucose of 541 with no elevation in anion gap. Related Data Home Medications Medication Instructions Recorded Confirmed Basaglar KwikPen U-100 Insulin 6 unit SUBCUT DAILY 06/19/19 06/19/19 glimepiride 4 mg PO DAILY 06/19/19 06/19/19 metformin 1,000 mg PO BID 06/19/19 06/19/19 pravastatin 10 mg PO DAILY 06/19/19 06/19/19 venlafaxine mg PO 06/10/20 Allergies Allergy/AdvReac Type Severity Reaction Status Date / Time No Known Allergies Allergy Mild Unverified 06/10/20 07:01 Review of Systems Review of Systems: All systems reviewed & are unremarkable except as noted in HPI and below Constitutional: Constitutional: Reports body ache(s) and Reports chills Eyes: Eyes: Reports no additional eye complaints ENT: Reports system reviewed and no additional complaints, except as documented Cardiovascular: Cardiovascular: Reports chest pain Respiratory: Respiratory: Reports cough and Reports dyspnea Gastrointestinal: Gastrointestinal: Denies abdominal pain, Reports nausea and Reports vomiting Genitourinary: Genitourinary: Denies dysuria Musculoskeletal: Musculoskeletal: Reports myalgias Integumentary/Breasts: Skin/Breast: Reports system reviewed and no additional complaints, except as docu Neurologic: Denies focal weakness Endocrine: Endocrine: Reports polydipsia PMFSH Past Medical History Medical History Anxiety Atrial fibrillation Depression Diabetes Diabetic retinopathy Hepatitis C HLD (hyperlipidemia) HTN (hypertension) Surgical History Surgical History Hx of appendectomy Hx of tonsillectomy Family History Family History Father Family history of diabetes mellitus in first degree relative Other Family history of coronary artery disease Social History Social History Smoking packs per day: 1 Smoking cigarettes per day: 20.0 Years smoked: 53 Smoking pack-years: 53.00 Smoking status: Current every day smoker Tobacco type: cigarettes Second hand tobacco smoke exposure: Yes Alcohol intake: never Substance use: former Substance use type: does not use and former substance user Other substance usage details: pt states he has used everything in the past. Nothing for the past year Gender identity (if verbalized by the patient): Male Exam Const: General: no acute distress, alert and ill appearing Nutritional Appearance: thin Orientation/consciousness: patient oriented x3 HENMT: Head: normal to inspection Neck: Neck: normal visual inspection and no lymphadenopathy Chest: Chest palpation & inspection: no tenderness Resp: Effort & Inspection: normal respiratory effort Auscultation: crackles, no rales, no rhonchi and no wheezes Cardio: Jugular venous distension: no JVD Rate: tachycardic Rhythm: regular rhythm Heart sounds: no murmurs GI: Inspection: non-distended GI Palp: Yes Soft to palpation and No Tenderness to palpation present (GI) Skin: General skin exam: normal color Neuro: General: patient oriented x3 and moves all extremities Cranial nerves: Yes CN's II-XII intact bilaterally Speech
[2020-06-10 07:07] LABS: Troponin I < 0.012 ng/mL (0.000-0.034)
[2020-06-10 07:48] LABS: Glucose Point of Care 439 (65-105)
[2020-06-10 08:03] LABS: Lactic Acid Reflex 2.8 mmol/L (0.7-2.1)
[2020-06-10 08:07] LABS: Alanine Aminotransferase 35 U/L (4-50); Albumin Level 3.8 g/dL (3.5-5.1); Alkaline Phosphatase 108 U/L (38-126); Aspartate Amino Transferase 38 U/L (17-59); Bilirubin,Total 0.5 mg/dL (0.2-1.3); CRP 0.6 mg/dL (<1.0)
[2020-06-10 08:12] LABS: Add Urine Microscopic? YES; Appearance Urine Clear (Clear); Bacteria Urine 3+ /hpf; Bilirubin Urine Negative (Negative); Blood Urine Negative (Negative); Color Urine Yellow (Yellow); Glucose Urine UA 3+ mg/dL (Negative); Ketones Urine Negative (Negative); Leukocyte Esterase Ur 1+ LEU/UL (Negative); Nitrate Urine Negative (Negative); Protein Urine 1+ mg/dL (Negative); Specific Grav Ur 1.032 (1.001-1.035); Urobilinogen Urine Negative mg/dL (<2.0); WBC Urine 31-50 /hpf
[2020-06-10 10:09] LABS: Troponin I < 0.012 ng/mL (0.000-0.034)
[2020-06-10 10:49] LABS: Reflex Lactic Acid Yes or No Add Lactic
--- NOTE | 2020-06-10 11:38 | PM.IMHP ---
H&P: HPI History of Present Illness Date/Time: 06/10/20 11:38 Chief Complaint: High sugars. Narrative: Humberto Helms is a 65 year old male with PMHx significant for T2DM, patient presented to ED due to uncontrolled sugars for about a week, being high, not feeling well, general malaise.pain and burning with urination, chills, poor appetite, muscle aches and pains. He has a chronic cough, smokes 1 pack of cigarrettes a day, no change in sputum quality. Preliminary work up in ED was significant for sugar in the 500's and urinary tract infection. Review of Systems Review of Systems: Narrative: Presented to ED due to uncontrolled sugars, general malaise. Constitutional: Constitutional: Reports fatigue, Reports fever(s), Reports lethargy and Reports poor appetite Eyes: Comments: no change in vision. ENT: Comments: no nasal congestion. Cardiovascular: Comments: no leg swelling, no pnd, no orthopnea. Respiratory: Comments: chronic productive cough, no change in sputum quality Gastrointestinal: Comments: poor apettite Genitourinary: Genitourinary: Reports dysuria Musculoskeletal: Comments: muscle pain. Integumentary/Breasts: Comments: no rashes. Neurologic: Comments: no sensory motor deficit. [facility] Past Medical History Medical History Anxiety Atrial fibrillation Depression Diabetes Diabetic retinopathy Hepatitis C HLD (hyperlipidemia) HTN (hypertension) Surgical History Surgical History Hx of appendectomy Hx of tonsillectomy Family History Family History (Updated 06/10/20 @ 12:58 by Cherise Wright RN) Father Family history of diabetes mellitus in first degree relative Family history of coronary artery disease Son Family history of coronary artery disease Mother Family history of coronary artery disease Social History Social History Smoking packs per day: 1 Smoking cigarettes per day: 20.0 Years smoked: 53 Smoking pack-years: 53.00 Smoking status: Current every day smoker Tobacco type: cigarettes Second hand tobacco smoke exposure: Yes Alcohol intake: never Substance use: former Substance use type: does not use and former substance user Other substance usage details: pt states he has used everything in the past. Nothing for the past year Gender identity (if verbalized by the patient): Male Meds Home Medications and Allergies Home Medications Medication Instructions Recorded Confirmed Type Stacey Lora U-100 Insulin 8 unit SUBCUT DAILY 06/19/19 06/10/20 History metformin 1,000 mg PO BID 06/19/19 06/10/20 History pravastatin 10 mg PO DAILY 06/19/19 06/10/20 History Allergies Allergy/AdvReac Type Severity Reaction Status Date / Time No Known Allergies Allergy Mild Verified 06/10/20 12:31 Vital Signs Vital Signs - 24 hr 06/10/20 06:31 06/10/20 07:34 06/10/20 08:38 Temperature 97.9 F 98.1 F Pulse Rate 116 H 118 H 111 H Respiratory Rate 18 19 18 Blood Pressure 143/99 H 130/86 137/91 H Pulse Oximetry 93 100 99 06/10/20 10:39 Temperature Pulse Rate 107 H Respiratory Rate 18 Blood Pressure 142/81 H Pulse Oximetry 99 Exam Narrative: Exam Narrative: Lying in bed. Const: General: comfortable, no acute distress, alert, awake and Physically active Nutritional Appearance: average body habitus Orientation/consciousness: patient oriented x3 HENMT: Head: normal to inspection and normocephalic Face and sinus: normal facial exam Eyes: General: appearance normal, both eyes and all related structures Pupils: Equal, round and reactive pupils present EOM: EOMs intact bilaterally Neck: Neck: no lymphadenopathy, supple and no JVD Resp: Effort & Inspection: able to speak in complete sentences Auscultation: clear to auscultation bilaterally Cardio: Rate: regular rate R
--- NOTE | 2020-06-10 12:00 | ADMGEN ---
This patient, Humberto Helms, was admitted to 2 Medical Room 251-. Patient/family oriented to hospital policies and general routines including ID bracelet, bed and alarms, visiting hours, pain management, procedures, bathroom and other care routines, personal items, smoking policy, room service/diet, and visiting hours. Information on how to activate the Rapid Response Team has been discussed. Patient/Family are encouraged to report perceived risks to care and to ask questions if they do not understand what they are told or what they should do.
[2020-06-10 12:36] LABS: Lactic Acid 1.1 mmol/L (0.7-2.1)
[2020-06-10 12:49] LABS: Troponin I < 0.012 ng/mL (0.000-0.034)
[2020-06-10] MEDS: SODIUM CHLORIDE 0.9% IV 1,000 ML 100 ML IV CONT ×2 (13:16→23:11)
[2020-06-10 13:28] LABS: Glucose Point of Care 426 (65-105)
--- NOTE | 2020-06-10 14:01 | PC.NURSE ---
Patient has orders for 10 units Novolog insuling with meals. Patient stated he was going to order lunch. Blood glucose 427. Patient then told me that he does not want to eat until suppertime. Called and discussed with Dr. Joshi and she requests patient be given 10 units Novolog anyway regardless of patient eating lunch or not.
[2020-06-10] MEDS: INSULIN ASPART (*BKC) 100 UNITS/ML 10 UNITS SUB-Q (14:06)
[2020-06-10 16:38] LABS: Glucose Point of Care 235 (65-105)
[2020-06-10] MEDS: INSULIN ASPART (*BKC) 100 UNITS/ML SUB-Q (17:44)
[2020-06-10] MEDS: INSULIN GLARGINE (*BKC) 100 UNITS/ML 24 UNITS SUB-Q (20:32)
[2020-06-10 20:39] LABS: Glucose Point of Care 195 (65-105)
[2020-06-11] VITALS (9 sets, daily range): BP systolic 124–146; BP diastolic 67–86; PULSE 84–99; RESP 16–20; TEMP 36.3–36.8; O2SAT 96–98
[2020-06-11 05:36] LABS: Anion Gap 5 mmol/L (8-16); Blood Urea Nitrogen 15 mg/dL (9-20); Calcium 7.9 mg/dL (8.4-10.2); Carbon Dioxide 26 mmol/L (22-30); Chloride 102 mmol/L (98-107); Estimated CRCL calculation 119 ml/min; Estimated Glomerular Filt Rate > 60; Glucose 176 mg/dL (75-110); Potassium 3.7 mmol/L (3.4-5.0); Sodium 133 mmol/L (137-145)
[2020-06-11 07:34] LABS: Glucose Point of Care 215 (65-105)
[2020-06-11] MEDS: INSULIN ASPART (*BKC) 100 UNITS/ML 10 UNITS SUB-Q ×3 (07:50→17:55)
[2020-06-11] MEDS: SODIUM CHLORIDE 0.9% IV 1,000 ML 100 ML IV CONT ×2 (07:54→20:16)
[2020-06-11] MEDS: ENOXAPARIN 40 MG/0.4 ML SYRINGE SUB-Q (08:13)
[2020-06-11 11:38] LABS: Glucose Point of Care 207 (65-105)
--- NOTE | 2020-06-11 16:24 | PM.IMPN ---
Progress Note: A&P Assessment and Plan (1) UTI (urinary tract infection): Qualifiers: Hematuria presence: without hematuria Urinary tract infection type: site unspecified Qualified Code(s): N39.0 - Urinary tract infection, site not specified Code(s): N39.0 - Urinary tract infection, site not specified Status: Acute Assessment and Plan: On Rocephin Ua growing Klebsiella Awaiting sensitivity (2) Uncontrolled diabetes mellitus: Qualifiers: Glycemic state: with hyperglycemia Code(s): E11.65 - Type 2 diabetes mellitus with hyperglycemia Status: Acute Assessment and Plan: ISS as needed Carb consistent diet Improved. (3) HTN (hypertension): Code(s): I10 - Essential (primary) hypertension Status: Acute Assessment and Plan: Stable Continue to monitor (4) Hepatitis C: Code(s): B19.20 - Unspecified viral hepatitis C without hepatic coma Status: Chronic Assessment and Plan: Follow up in the outpatient setting. (5) Atrial fibrillation: Code(s): I48.91 - Unspecified atrial fibrillation Status: Acute Assessment and Plan: Rate controlled. (6) Diabetes: Code(s): E11.9 - Type 2 diabetes mellitus without complications Status: Acute Assessment and Plan: Carb consistent diet ISS as needed Accu checks ACHS Subjective Date/time seen: 06/11/20 16:24 States that he feels good Review of Systems Review of Systems: Narrative: No new issues. Constitutional: Comments: no chills Cardiovascular: Comments: Amol NEVAREZ Respiratory: Comments: no cough, no no sob, no sputum production Gastrointestinal: Comments: no n/v/abdominal pain. Musculoskeletal: Comments: Amol NEVAREZ Exam Narrative: Exam Narrative: Lying in bed Const: General: no acute distress, alert and awake Nutritional Appearance: average body habitus HENMT: Head: normocephalic Face and sinus: normal facial exam Eyes: General: appearance normal, both eyes and all related structures Pupils: Equal, round and reactive pupils present EOM: EOMs intact bilaterally Neck: Neck: no lymphadenopathy, supple and no JVD Resp: Auscultation: clear to auscultation bilaterally Cardio: Jugular venous distension: no JVD Rate: regular rate Rhythm: regular rhythm GI: GI Palp: Yes Soft to palpation and Yes No hepatosplenomegaly present Skin: Wounds: no wounds Neuro: General: patient oriented x3 and CN's II-XI intact bilaterally Cranial nerves: Yes CN's II-XII intact bilaterally and Yes Equal, round and reactive pupils present Cognition (Neuro): normal cognition Motor exam (neuro): 5/5 motor strength present throughout Extrem: General: other (L BKA) Objective Data Vital Signs Vital Signs: Vital Signs - 24 hr 06/10/20 20:00 06/10/20 22:00 06/11/20 00:00 Temperature 98.0 F Pulse Rate 102 H 102 H 95 Respiratory Rate 18 Blood Pressure 120/74 Pulse Oximetry 97 06/11/20 04:00 06/11/20 06:00 06/11/20 08:00 Temperature 97.7 F Pulse Rate 99 96 93 Respiratory Rate 20 Blood Pressure 137/75 Pulse Oximetry 98 06/11/20 12:00 06/11/20 14:00 Temperature 97.4 F L Pulse Rate 92 91 Respiratory Rate 16 Blood Pressure 124/67 Pulse Oximetry 98 Intake/Output Intake/Output: Intake & Output 06/08/20 06/09/20 06/10/20 06/11/20 23:59 23:59 23:59 23:59 Intake Total 3345 2220 Output Total 375 800 Balance 2970 1420 Meds/Results Medications: Active Medications Generic Name Dose Route Start Last Admin Trade Name Freq PRN Reason Stop Dose Admin Acetaminophen 650 mg 06/10/20 12:05 Acetaminophen 325 Mg Tablet PO Q4H PRN Mild Pain (1-3) or Fever Al Hydrox/Mg Hydrox/Simethicone 30 ml 06/10/20 12:05 Mag Hydrox/Al Hydrox/Simeth 30 Ml Udc PO QID PRN Dyspepsia Albuterol 5 mg 06/10/20 09:01 Albuterol Sulfate Neb 2.5 Mg/0.5 Ml Inh INHALATION Q6HRT PRN Short
[2020-06-11 17:53] LABS: Glucose Point of Care 122 (65-105)
[2020-06-11] MEDS: INSULIN GLARGINE (*BKC) 100 UNITS/ML 24 UNITS SUB-Q (20:17)
[2020-06-11 20:47] LABS: Glucose Point of Care 194 (65-105)
[2020-06-12] VITALS: PULSE 91
[2020-06-12 04:00] VITALS: PULSE 95
[2020-06-12 06:00] VITALS: BP 143/80; PULSE 88; RESP 16; TEMP 36.7; O2SAT 95
[2020-06-12] MEDS: SODIUM CHLORIDE 0.9% IV 1,000 ML 100 ML IV CONT (06:01)
[2020-06-12 07:22] LABS: Glucose Point of Care 151 (65-105)
[2020-06-12] MEDS: INSULIN ASPART (*BKC) 100 UNITS/ML 10 UNITS SUB-Q ×2 (07:51→11:30)
[2020-06-12] MEDS: ENOXAPARIN 40 MG/0.4 ML SYRINGE SUB-Q (07:53)
[2020-06-12 08:00] VITALS: PULSE 90
[2020-06-12 11:28] LABS: Glucose Point of Care 182 (65-105)
[2020-06-12 12:00] VITALS: PULSE 84
--- NOTE | 2020-06-12 12:36 | PM.DS ---
DS: Admitting Diagnosis Admitting Diagnosis Admitting Diagnosis: High sugars DS: Discharge Diagnosis Discharge Diagnosis (1) UTI (urinary tract infection): Qualifiers: Hematuria presence: without hematuria Urinary tract infection type: site unspecified Qualified Code(s): N39.0 - Urinary tract infection, site not specified Code(s): N39.0 - Urinary tract infection, site not specified Status: Acute Assessment and Plan: Pt is on rocephin, Urine is growing Klebsiella Pt is keen to go home discharge on levaquin. Pt to follow up with his PCP for rpt UC in 2-3 weeks time. (2) Uncontrolled diabetes mellitus: Qualifiers: Glycemic state: with hyperglycemia Code(s): E11.65 - Type 2 diabetes mellitus with hyperglycemia Status: Acute Assessment and Plan: Sugars were high on asdmission increase long acting dose of insulin (3) HTN (hypertension): Code(s): I10 - Essential (primary) hypertension Status: Acute Assessment and Plan: Bp Stable on discharge (4) Hepatitis C: Code(s): B19.20 - Unspecified viral hepatitis C without hepatic coma Status: Chronic Assessment and Plan: Follow up in the outpatient setting. (5) Atrial fibrillation: Code(s): I48.91 - Unspecified atrial fibrillation Status: Acute Assessment and Plan: Rate controlled. (6) Diabetes: Code(s): E11.9 - Type 2 diabetes mellitus without complications Status: Acute Assessment and Plan: HBaic is over 14, pt adviced better control of DM, through diet and insulin control. DS: Summary Hospital Course Hospital Course: Humberto Helms is a 65 year old male with PMHx significant for T2DM, patient presented to ED due to uncontrolled sugars for about a week, being high, not feeling well, general malaise.pain and burning with urination, chills, poor appetite, muscle aches and pains. Found to have Klebsiella UTI, and Hbaic of 14. pt treated with iv Rocephin changed to oral Levaquin on discharge. Time Spent with Patient Time attestation: Total time spent providing and/or coordinating discharge services: 40 minutes on day of discharge Exam Narrative: Exam Narrative: Lying in bed Const: General: comfortable, alert and Physically active Nutritional Appearance: average body habitus Orientation/consciousness: patient oriented x3 HENMT: Head: normal to inspection and normocephalic Face and sinus: normal facial exam Eyes: General: appearance normal, both eyes and all related structures Pupils: Equal, round and reactive pupils present EOM: EOMs intact bilaterally Neck: Neck: no lymphadenopathy, supple and no JVD Resp: Effort & Inspection: able to speak in complete sentences Auscultation: clear to auscultation bilaterally Cardio: Jugular venous distension: no JVD Rate: regular rate Rhythm: regular rhythm Skin: Rashes: no rashes Wounds: no wounds Neuro: General: patient oriented x3 and CN's II-XI intact bilaterally Cranial nerves: Yes CN's II-XII intact bilaterally and Yes Equal, round and reactive pupils present Cognition (Neuro): normal cognition Gait exam (Neuro): Normal gait present Motor exam (neuro): 5/5 motor strength present throughout Sensory Exam: normal sensation Extrem: General: no pedal edema and other (L BKA) DS: Data Data Completed and Pending Labs on day of discharge: Labs from last 24 hours 06/12/20 06/12/20 06/11/20 11:21 07:19 20:15 POC Capillary Glucose 182 H 151 H 194 H 06/11/20 17:01 POC Capillary Glucose 122 H Discharge Plan Discharge Attending physician on discharge: Veronika Briscoe Discharging Clinician: Veronika Briscoe Anticipated Discharge Date/Time: 06/12/20 12:33 Patient Disposition: Home, Self-Care Activity: as tolerated Diet: diabetic Patient Instructions: Antibiotic Form, Levofloxacin (By mouth), How to Stop Smoking (GEN), Urinary Tract Infe
== END 2020-06-12 14:40 | disposition home or self-care (01) | DRG 463 ==
LOC: ANHED 09:13 → ANH2MED 11:05
PROVIDERS: Emergency Medicine; Admitting Provider Internal Medicine; Emergency Provider Emergency Medicine; PCP Internal Medicine; Visit Provider Family Medicine
DX: N39.0 Urinary tract infection, site not specified (principal); B96.1 Klebsiella pneumoniae [K. pneumoniae] as the cause of diseases classified elsewhere; E11.65 Type 2 diabetes mellitus with hyperglycemia; I10 Essential (primary) hypertension; I48.20 Chronic atrial fibrillation, unspecified; F41.8 Other specified anxiety disorders; E11.319 Type 2 diabetes mellitus with unspecified diabetic retinopathy without macular edema; E78.5 Hyperlipidemia, unspecified; B18.2 Chronic viral hepatitis C; F17.210 Nicotine dependence, cigarettes, uncomplicated; Z89.512 Acquired absence of left leg below knee; Z90.49 Acquired absence of other specified parts of digestive tract
CPT/HCPCS: 36415; 71046; 80048; 80076; 81001; 82948; 83605; 84484; 85025; 85610; 85730; 86140; 87077; 87086; 87088; 87186; 93005; 96361; 96365; 96375; 96376; 99285; A9270; J0696; J1650; J1815; J2405; J7030

== ENCOUNTER 2020-10-03 09:01 | Emergency (ER) | payer OTHER, SELFPAY ==
[2020-10-03 09:14] VITALS: BP 142/79; PULSE 113; RESP 20; TEMP 36.3; O2SAT 98
--- NOTE | 2020-10-03 09:20 | ED.WOUNDLAC ---
HPI - Wound/Laceration General Chief Complaint: Wound/Laceration Stated Complaint: right leg infection Time Seen by Provider: 10/03/20 09:20 Source: patient, RN notes reviewed and old records reviewed Mode of arrival: ambulatory Limitations: no limitations History of Present Illness HPI narrative: 65 year old male who presents to [facility] care via personal wheelchair with complaint of swelling of his left lower leg stump with redness laterally for the past 2 weeks with drainage noted for the past few days to wound on lateral aspect of stump which is red and indurated with clear fluid drainage noted. Patient states that he is diabetic and had a left below the knee amputation about 1 year ago at [facility] in [place] but does not know the surgeons's name. He states it was around January or February he thinks because re received his prosthesis the day before thanksgi. He has been unable to wear prosthesis for past 2 days due to swelling of stump, voices pain to be 3/10. Blood sugar per finger stick is 389 patient states he had a chocolate donut and regular Pepsi for breakfast. Patient continues to be daily tobacco user and admits to some Marijuana use and also Methamphetamine with last use yesterday. Onset (ago): week(s) (2) Location: other (left below knee stump) Extremity Location: Left: lower leg (stump) Associated symptoms: pain Treatments prior to arrival: bandage Related Data Home Medications Medication Instructions Recorded Confirmed metformin 1,000 mg PO BID 06/19/19 06/10/20 pravastatin 10 mg PO DAILY 06/19/19 06/10/20 venlafaxine mg PO 10/03/20 Allergies Allergy/AdvReac Type Severity Reaction Status Date / Time No Known Allergies Allergy Mild Verified 06/10/20 12:31 Review of Systems Review of Systems: Narrative: CONSTITUTIONAL: Denies fever, chills, or sweats. EYES: Denies visual changes, redness, or discharge. ENT: Denies rhinorrhea, congestion, sore throat, or otalgia. CARDIOVASCULAR: Denies chest pain, palpitations, or edema. RESPIRATORY: Denies cough or dyspnea. GASTROINTESTINAL: Denies abdominal pain, nausea, vomiting, or diarrhea. GENITOURINARY: Denies dysuria or hematuria. SKIN: Denies rash or itching. Positive draining wound abscess to left lateral leg 4 cm diameter with redness total 12cm X 10cm, 1.5 cm area to posterior aspect of left stump with scab noted and surrounding redness with no surrounding induration. MUSCULOSKELETAL: Denies back pain, joint pain, or myalgia. NEUROLOGIC: Denies headache, numbness, or weakness. PSYCHIATRIC: Positive history of anxiety or depression. All systems reviewed & are unremarkable except as noted in HPI and below PMFSH Past Medical History Medical History Anxiety Atrial fibrillation Depression Diabetes Diabetic retinopathy Hepatitis C HLD (hyperlipidemia) HTN (hypertension) Surgical History Surgical History Hx of appendectomy Hx of tonsillectomy Family History Family History Father Family history of diabetes mellitus in first degree relative Family history of coronary artery disease Son Family history of coronary artery disease Mother Family history of coronary artery disease Social History Social History (Updated 10/03/20 @ 10:06 by Corinne Morgan NP) Smoking packs per day: 1 Smoking cigarettes per day: 20.0 Years smoked: 53 Smoking pack-years: 53.00 Smoking status: Current every day smoker Tobacco type: cigarettes Second hand tobacco smoke exposure: Yes Alcohol intake: never Substance use: current Substance use type: marijuana and methamphetamine Other substance usage details: pt states he has used everything in the past. Admits present use Living arrangements: with friend(s) Additional living arrangements comments: living conditions presently e
[2020-10-03 09:35] LABS: Glucose Point of Care 389 mg/dl (65-105)
--- NOTE | 2020-10-03 09:44 | PC.NURSE ---
at 0930 stated had taken insulin about 0400 this am. did eat chocolate donuts and pepsi for breakfast. aware of accucheck of 389.
--- NOTE | 2020-10-03 09:49 | PC.NURSE ---
aware of need for further evaluation by higher level of care and requested to transfer to [facility] in [facility]. friend here to provide tranportation.
--- NOTE | 2020-10-03 10:03 | PC.NURSE ---
upon dc at 0955 stated does use/smoke meth and last used yesterday and intermittently uses marijuana.
--- NOTE | 2020-10-03 10:07 | PC.NURSE ---
rn chart faxed to [facility] in [facility] at [phone]
== END 2020-10-03 09:55 | disposition short-term general hospital (02) ==
LOC: EXPCOLL 09:06
PROVIDERS: Emergency Provider Registered Nurse; PCP Internal Medicine Infectious Disease
DX: T81.49XA Infection following a procedure, other surgical site, initial encounter (principal); T87.44 Infection of amputation stump, left lower extremity; L02.416 Cutaneous abscess of left lower limb; E11.65 Type 2 diabetes mellitus with hyperglycemia; F17.210 Nicotine dependence, cigarettes, uncomplicated; F41.9 Anxiety disorder, unspecified; F32.9 Major depressive disorder, single episode, unspecified; I49.1 Atrial premature depolarization; E11.319 Type 2 diabetes mellitus with unspecified diabetic retinopathy without macular edema; E78.5 Hyperlipidemia, unspecified; I10 Essential (primary) hypertension; Z86.19 Personal history of other infectious and parasitic diseases
CPT/HCPCS: 82948; 99212; G0463

== ENCOUNTER 2021-01-07 17:46 | Inpatient (IN) | payer OTHER, SELFPAY ==
--- NOTE | ~2021-01-07 | XR_ITS ---
XR foot RT min 3V DATE: 01/07/2021 18:14 INDICATION: Infection of second and third digits. Diabetes. TECHNIQUE: 4 views COMPARISON: None FINDINGS: There is minimal plantar and posterior calcaneal enthesopathy. There is osteoarthritis at the tibiotalar joint and first metatarsophalangeal joint. No fracture, dislocation, periosteal reaction or bone destruction is evident. Mild arterial calcification is noted. 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
[2021-01-07 17:51] VITALS: BP 137/75; PULSE 117; RESP 16; TEMP 36.4; O2SAT 100
[2021-01-07 18:54] LABS: Basophils Percent Auto 0.5 % (0.2-1.2); Eosinophils Absolute Auto 0.1 K/mm3 (0-0.3); Hematocrit 38.3 % (42.0-52.0); Hemoglobin 12.9 g/dL (14.0-18.0); Immature Granulocyte Absolute 0.03 K/mm3 (0.00-0.031); Immature Granulocyte Percent A 0.3 % (0-0.5); Lymphocytes Absolute Auto 1.34 K/mm3 (0.9-3.2); Lymphocytes Percent Auto 15.2 % (18.3-44.2); Mean Corpuscular HGB Conc 33.7 g/dl (32-36); Mean Corpuscular Hemoglobin 29.8 pg (26-34); Mean Corpuscular Volume 88.5 fl (80-100); Mean Platelet Volume 10.4 fl (7.4-10.4); Monocytes Absolute Auto 0.7 K/mm3 (0.1-0.6); Monocytes Percent Auto 8.3 % (2.6-8.5); Neutrophils Absolute Auto 6.6 K/mm3 (1.3-6.7); Neutrophils Percent Auto 74.7 % (45.5-73.1); Platelet Count Result 246 k/mm3 (150-375); Red Blood Count 4.33 M/mm3 (4.6-6.20); Red Cell Distribution Width 13.3 % (11.5-14.5); White Blood Count 8.8 K/mm3 (4.5-10.0)
[2021-01-07 19:17] LABS: Alanine Aminotransferase 17 U/L (4-50); Albumin Level 4.1 g/dL (3.5-5.1); Alkaline Phosphatase 137 U/L (38-126); Anion Gap 11 mmol/L (8-16); Aspartate Amino Transferase 22 U/L (17-59); Bilirubin,Total 0.5 mg/dL (0.2-1.3); Blood Urea Nitrogen 24 mg/dL (9-20); Carbon Dioxide 25 mmol/L (22-30); Chloride 94 mmol/L (98-107); Estimated CRCL calculation 75 ml/min; Estimated Glomerular Filt Rate > 60; Glucose 326 mg/dL (65-110); Potassium 4.5 mmol/L (3.4-5.0); Sodium 130 mmol/L (137-145)
[2021-01-07 19:29] LABS: CRP 15.9 mg/dL (<1.0)
[2021-01-07 20:21] LABS: Erythrocyte Sedimentation Rate 46 mm/hr (0-20)
[2021-01-07 22:34] VITALS: BP 108/63; PULSE 111; O2SAT 97
[2021-01-07 23:16] VITALS: BP 106/73; PULSE 73; RESP 18; O2SAT 98
--- NOTE | 2021-01-07 23:28 | ED.GENADULT ---
HPI - General Adult General Chief complaint: Extremity Problem,Nontraumatic Stated complaint: INFECTED FOOT Time Seen by Provider: 01/07/21 22:53 Source: patient History of Present Illness HPI narrative: Patient is a 65 y/o male complaining of right toe pain starting 1 week ago. He describes his pain as throbbing and rates it as 9/10. It involves his right 2nd and 3rd toe. He states that weight bearing aggravates his pain. He denies any trauma. He has some redness to right foot. Related Data Home Medications Medication Instructions Recorded Confirmed Stacey AnguianoPen U-100 Insulin 18 unit SUBCUT DAILY 01/08/21 01/08/21 Allergies Allergy/AdvReac Type Severity Reaction Status Date / Time No Known Allergies Allergy Mild Verified 01/08/21 03:28 Review of Systems Constitutional: Constitutional: Denies chills, Denies fever(s), Denies headache(s) and Denies weakness Eyes: Eyes: Denies blurry vision ENT: Denies headache(s) and Denies neck pain Cardiovascular: Cardiovascular: Denies chest pain and Denies dyspnea Respiratory: Respiratory: Denies cough and Denies dyspnea Gastrointestinal: Gastrointestinal: Denies abdominal pain, Denies diarrhea, Denies nausea and Denies vomiting Genitourinary: Genitourinary: Denies hematuria and Denies dysuria Musculoskeletal: Musculoskeletal: Denies back pain, Denies neck pain and Reports other (right foot and toe pain) Integumentary/Breasts: Skin/Breast: Reports erythema (right foot) Neurologic: Denies headache(s) and Denies weakness PMFSH Past Medical History Medical History (Updated 01/08/21 @ 16:15 by Miriam Padron MD) Anxiety Atrial fibrillation Below-knee amputation of left lower extremity Depression Diabetes Diabetic retinopathy Hepatitis C HLD (hyperlipidemia) HTN (hypertension) Surgical History Surgical History Hx of appendectomy Hx of tonsillectomy Family History Family History Father Family history of diabetes mellitus in first degree relative Family history of coronary artery disease Son Family history of coronary artery disease Mother Family history of coronary artery disease Social History Social History Social History: 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 Patient stated that his son Ky will be her surrogate if anything were to happen. Patient also wishes to be DNR at this time. Smoking packs per day: 1 Smoking cigarettes per day: 20.0 Years smoked: 50 Smoking pack-years: 50.00 Smoking status: Current every day smoker Tobacco type: cigarettes Second hand tobacco smoke exposure: Yes Alcohol intake: never Substance use: current Substance use type: marijuana and methamphetamine Other substance usage details: Uses a couple times a week Living arrangements: with family Additional living arrangements comments: living conditions presently erratic was living with son but moved in with friend which is not working out Occupation/Education: retired Additional occupation/education comments: [employer] Gender identity (if verbalized by the patient): Male Sexual Orientation (if Verbalized by the Patient): Straight or Heterosexual Spiritual care concerns: No Agree to blood products: Yes Exam Const: General: no acute distress and well developed Orientation/consciousness: oriented to person, oriented to place, oriented to time and patient oriented x3 HENMT: Head: normocephalic Ears: external ears normal General nose exam: Normal external nose present Eyes: General: appearance normal, both eyes and all related structures Conjunctivae: conjunctivae normal Neck: Neck: normal visual inspection and full ROM Chest: Chest palpation & inspection: normal inspection of the chest and no tendern
--- NOTE | 2021-01-08 01:24 | ECG_ITS ---
Measurements Intervals [place] Rate: 105 P: 75 [place]: 143 QRS: 72 QRSD: 93 T: 72 QT: 324 QTc: 429 Interpretive Statements SINUS TACHYCARDIA POSSIBLE LEFT ATRIAL ENLARGEMENT BORDERLINE ECG Electronically Signed On 01-08-2021 17:16:10 CDT by Noble Pedraza D.O.
[2021-01-08 01:27] VITALS: BP 114/76; PULSE 102; RESP 18; O2SAT 98
--- NOTE | 2021-01-08 03:41 | PC.NURSE ---
This patient, Humberto Helms, was admitted to 3 [facility] Surg Room 331-01. Patient/family oriented to hospital policies and general routines including ID bracelet, bed and alarms, visiting hours, pain management, procedures, bathroom and other care routines, personal items, smoking policy, room service/diet, and visiting hours. Information on how to activate the Rapid Response Team has been discussed. Patient/Family are encouraged to report perceived risks to care and to ask questions if they do not understand what they are told or what they should do. Pt was admitted by Orquidea Lux RN in ER and brought up per bed. Pt is sleeping at this time, does not c/o pain at this time. Bed alarm on pt does have a Lt leg prosthesis, call light at side.
[2021-01-08 04:53] VITALS: BP 125/72; PULSE 99; RESP 18; TEMP 36.6; O2SAT 98
[2021-01-08 04:57] VITALS: BMI 17.9
[2021-01-08 08:31] LABS: Glucose Point of Care 275 mg/dl (65-105)
[2021-01-08] MEDS: SILVERGEL (ELTA) 45 ML 1 APPLIC TOPICAL (10:37)
[2021-01-08 11:32] VITALS: BMI 17.9
[2021-01-08 12:00] VITALS: BP 102/54; PULSE 89; RESP 16; TEMP 36.4; O2SAT 100
[2021-01-08 12:08] LABS: Glucose Point of Care 241 mg/dl (65-105)
[2021-01-08] MEDS: INSULIN ASPART (*BKC) 100 UNITS/ML SUB-Q ×2 (12:42→17:07)
--- NOTE | 2021-01-08 12:56 | PM.IMHP ---
H&P: HPI History of Present Illness Date/Time: date of service: 01/08/21 7:30 a.m. Chief Complaint: right 2nd and 3rd toe pain Narrative: patient is a 65-year-old male with a past medical history AFib, depression, diabetes, hepatitis-C, hyperlipidemia, hypertension and a left BKA who presented to the ED on 01/07/2021 for right-sided toe pain. Patient stated this all happened about a week ago. He denies any trauma to that toe. He also stated that he does not have much feeling down there to knows that he had trauma. He also stated the nail just came off he was unaware of when or how the nail does came off however he states that it just came off. At rest patient states that his pain is a 3 to 4/10 and when he moves around it is a 9/10. He has not tried to take any medications to help pain. He did state that he was also getting more lightheaded dizziness. He also explained that he had was experiencing nausea with dry heaving. Patient denies sweats, fevers, chills, chest pain, shortness of breath, abdominal pain, urinary dysfunction, weakness, fatigue, cough, or headache. It is noted the patient did have a left BKA done back in [address] Gillespie Which is a vascular surgeon at [facility] in [place]. Patient is also noted to have a high a glucose level and he normally runs 3 to 400s he states. He is currently just on subcu insulin at home no orals at this time labs are unremarkable glucose is high the patient does say that he has a little bit of for blurred vision. Review of Systems Review of Systems: All systems reviewed & are unremarkable except as noted in HPI and below PMFSH Past Medical History Medical History (Updated 01/08/21 @ 16:15 by Miriam Padron MD) Anxiety Atrial fibrillation Below-knee amputation of left lower extremity Depression Diabetes Diabetic retinopathy Hepatitis C HLD (hyperlipidemia) HTN (hypertension) Surgical History Surgical History Hx of appendectomy Hx of tonsillectomy Family History Family History Father Family history of diabetes mellitus in first degree relative Family history of coronary artery disease Son Family history of coronary artery disease Mother Family history of coronary artery disease Social History Social History Social History: 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 Patient stated that his son Ky will be her surrogate if anything were to happen. Patient also wishes to be DNR at this time. Smoking packs per day: 1 Smoking cigarettes per day: 20.0 Years smoked: 50 Smoking pack-years: 50.00 Smoking status: Current every day smoker Tobacco type: cigarettes Second hand tobacco smoke exposure: Yes Alcohol intake: never Substance use: current Substance use type: marijuana and methamphetamine Other substance usage details: Uses a couple times a week Living arrangements: with family Additional living arrangements comments: living conditions presently erratic was living with son but moved in with friend which is not working out Occupation/Education: retired Additional occupation/education comments: [employer] Gender identity (if verbalized by the patient): Male Sexual Orientation (if Verbalized by the Patient): Straight or Heterosexual Spiritual care concerns: No Agree to blood products: Yes Meds Home Medications and Allergies Home Medications Medication Instructions Recorded Confirmed Type Basaglar KwikPen U-100 Insulin 18 unit SUBCUT DAILY 01/08/21 01/08/21 History Allergies Allergy/AdvReac Type Severity Reaction Status Date / Time No Known Allergies Allergy Mild Verified 01/08/21 03:28 Vital Signs Vital Signs - 24 hr 01/07/21 17:51 01/07/21 22:34 01/07/21 23:16 Temperature 3
--- NOTE | 2021-01-08 13:33 | PC.NURSE ---
Casting Supervisor called Gabriella staff educator and made aware of consult
[2021-01-08 14:00] VITALS: BP 138/80; PULSE 103; RESP 14; TEMP 37.2; O2SAT 100
--- NOTE | 2021-01-08 14:24 | PCOTNOTE ---
Attempted OT evaluation, awaiting surgery consult for wounds on R LE toes. Will follow and attempt OT evaluation in AM.
[2021-01-08 17:11] LABS: Glucose Point of Care 336 mg/dl (65-105)
[2021-01-08] MEDS: INSULIN GLARGINE (*BKC) 100 UNITS/ML 18 UNITS SUB-Q (20:25)
[2021-01-08 22:00] VITALS: BP 124/69; PULSE 104; RESP 18; TEMP 37.2; O2SAT 99
[2021-01-08] MEDS: ACETAMINOPHEN 325 MG TABLET 650 MG PO (23:38)
[2021-01-09 06:00] VITALS: BP 110/73; PULSE 95; RESP 18; TEMP 36.9; O2SAT 96
[2021-01-09 06:06] LABS: Basophils Percent Auto 0.7 % (0.2-1.2); Eosinophils Absolute Auto 0.2 K/mm3 (0-0.3); Eosinophils Percent Auto 2.8 % (0-4.4); Hemoglobin 12.3 g/dL (14.0-18.0); Immature Granulocyte Absolute 0.01 K/mm3 (0.00-0.031); Immature Granulocyte Percent A 0.2 % (0-0.5); Lymphocytes Absolute Auto 1.26 K/mm3 (0.9-3.2); Lymphocytes Percent Auto 21.7 % (18.3-44.2); Mean Corpuscular HGB Conc 34.2 g/dl (32-36); Mean Corpuscular Hemoglobin 29.5 pg (26-34); Mean Corpuscular Volume 86.3 fl (80-100); Mean Platelet Volume 10.3 fl (7.4-10.4); Monocytes Absolute Auto 0.6 K/mm3 (0.1-0.6); Neutrophils Absolute Auto 3.8 K/mm3 (1.3-6.7); Neutrophils Percent Auto 64.6 % (45.5-73.1); Platelet Count Result 227 k/mm3 (150-375); Red Blood Count 4.17 M/mm3 (4.6-6.20); Red Cell Distribution Width 13.1 % (11.5-14.5); White Blood Count 5.8 K/mm3 (4.5-10.0)
[2021-01-09 06:24] LABS: Glucose Point of Care 254 mg/dl (65-105)
[2021-01-09 06:25] LABS: Alanine Aminotransferase 16 U/L (4-50); Albumin Level 3.5 g/dL (3.5-5.1); Alkaline Phosphatase 114 U/L (38-126); Anion Gap 6 mmol/L (8-16); Aspartate Amino Transferase 26 U/L (17-59); Bilirubin,Total 0.3 mg/dL (0.2-1.3); Blood Urea Nitrogen 19 mg/dL (9-20); Carbon Dioxide 27 mmol/L (22-30); Chloride 96 mmol/L (98-107); Estimated CRCL calculation 71 ml/min; Estimated Glomerular Filt Rate > 60; Glucose 178 mg/dL (65-110); Magnesium 1.7 mg/dL (1.6-2.3); Potassium 3.7 mmol/L (3.4-5.0); Sodium 129 mmol/L (137-145)
[2021-01-09 08:48] LABS: Glucose Point of Care 187 mg/dl (65-105)
--- NOTE | 2021-01-09 10:07 | PCPTNOTE ---
PT evaluation attempted. Pt refused stating he gets around just fine with the prosthesis and cane if the toes were fixed . He doesn't need no therapy .
[2021-01-09 12:22] LABS: Glucose Point of Care 354 mg/dl (65-105)
[2021-01-09] MEDS: INSULIN ASPART (*BKC) 100 UNITS/ML SUB-Q ×3 (12:25→20:38)
[2021-01-09 14:00] VITALS: BP 131/68; PULSE 105; RESP 14; TEMP 36.4; O2SAT 98
[2021-01-09 16:52] LABS: Glucose Point of Care 242 mg/dl (65-105)
--- NOTE | 2021-01-09 16:57 | P.PNIM_ITS ---
Progress Note: A&P Assessment and Plan (1) Right foot injury: Code(s): S99.921A - Unspecified injury of right foot, initial encounter Status: Acute Assessment and Plan: * wounds noted on the 2nd and 3rd toe * wound care consult- dressed according to instructions listed in chart * general surgery consulted thank you for your recommendations * diabetes control * Zosyn 3.375 q.6 IV, vancomycin IV * blood cultures NGTD * deescalate antibiotics per blood cultures * PT/OT (2) HTN (hypertension): Code(s): I10 - Essential (primary) hypertension Status: Acute Assessment and Plan: * blood pressure 110/73 * adjust medications as needed * trend blood pressure (3) HLD (hyperlipidemia): Code(s): E78.5 - Hyperlipidemia, unspecified Status: Acute Assessment and Plan: * diet controlled * lipid panel in the a.m. * considering adding a statin drug (4) Uncontrolled diabetes mellitus: Qualifiers: Glycemic state: with hyperglycemia Code(s): E11.65 - Type 2 diabetes mellitus with hyperglycemia Status: Acute Assessment and Plan: * patient states that his norm is to 300 to 400s * current glucose on labs 178 * Accu-Cheks AC and HS * continue home Lantus 18 units daily * sliding scale insulin * A1c in the morning * table tender sludge consult * diabetic diet (5) Sepsis: Qualifiers: Sepsis acute organ dysfunction status: without acute organ dysfunction Sepsis type: sepsis due to unspecified organism Qualified Code(s): A41.9 - Sepsis, unspecified organism Code(s): A41.9 - Sepsis, unspecified organism Status: Acute Assessment and Plan: * inclusions in of sepsis noted by profound tachycardia up to 120, blood pressure dropped from 137/75 to 106/73, respiratory rate increased from 16-18, temperature remained stable at 36.4? C, white blood cell count is 8.8 * source of infection is wound on right foot * glucose 326 * lactic acid red it to * Zosyn and vancomycin started * creatinine elevated 0.9 baseline seems to be at 0.6 * trend labs and vital signs Subjective Date/time seen: 01/09/21 08:40 Interval history: Patient is a 65 year old male here for ulceration and wounds on toes. Today he stated that he feels better. He does not have a lot of pain at the time of the exam. He did say that he has not been up on his feet since he has been admitted. He denies chest pain, shortness of breath, nausea, vomiting, weakness, fatigue. Review of Systems Review of Systems: All systems reviewed & are unremarkable except as noted in HPI and below Exam Const: General: cooperative, healthy appearing, no acute distress, well developed, alert, awake, Physically active, lethargic and tired appearing Nutritional Appearance: well nourished Orientation/consciousness: oriented to person, oriented to place, oriented to time, patient oriented x3 and lethargic Limitations: physical limitations HENMT: Head: normal to inspection Ears: hearing grossly normal bilaterally General nose exam: Normal external nose present Mouth: Yes Normal oral and palatal mucosa present, Yes lip normal and Yes tongue normal Teeth and gingiva: abnormal tooth and associated gingiva and poor dentition Eyes: General: appearance normal, both eyes and all related structures Pupils: Equal, round and reactive pupi
--- NOTE | 2021-01-09 16:57 | PM.IMPN ---
Progress Note: A&P Assessment and Plan (1) Right foot injury: Code(s): S99.921A - Unspecified injury of right foot, initial encounter Status: Acute Assessment and Plan: wounds noted on the 2nd and 3rd toe wound care consult- dressed according to instructions listed in chart general surgery consulted thank you for your recommendations diabetes control Zosyn 3.375 q.6 IV, vancomycin IV blood cultures NGTD deescalate antibiotics per blood cultures PT/OT (2) HTN (hypertension): Code(s): I10 - Essential (primary) hypertension Status: Acute Assessment and Plan: blood pressure 110/73 adjust medications as needed trend blood pressure (3) HLD (hyperlipidemia): Code(s): E78.5 - Hyperlipidemia, unspecified Status: Acute Assessment and Plan: diet controlled lipid panel in the a.m. considering adding a statin drug (4) Uncontrolled diabetes mellitus: Qualifiers: Glycemic state: with hyperglycemia Code(s): E11.65 - Type 2 diabetes mellitus with hyperglycemia Status: Acute Assessment and Plan: patient states that his norm is to 300 to 400s current glucose on labs 178 Accu-Cheks AC and HS continue home Lantus 18 units daily sliding scale insulin A1c in the morning clinical nurse educator consult diabetic diet (5) Sepsis: Qualifiers: Sepsis acute organ dysfunction status: without acute organ dysfunction Sepsis type: sepsis due to unspecified organism Qualified Code(s): A41.9 - Sepsis, unspecified organism Code(s): A41.9 - Sepsis, unspecified organism Status: Acute Assessment and Plan: inclusions in of sepsis noted by profound tachycardia up to 120, blood pressure dropped from 137/75 to 106/73, respiratory rate increased from 16-18, temperature remained stable at 36.4? C, white blood cell count is 8.8 source of infection is wound on right foot glucose 326 lactic acid red it to Zosyn and vancomycin started creatinine elevated 0.9 baseline seems to be at 0.6 trend labs and vital signs Subjective Date/time seen: 01/09/21 08:40 Interval history: Patient is a 65 year old male here for ulceration and wounds on toes. Today he stated that he feels better. He does not have a lot of pain at the time of the exam. He did say that he has not been up on his feet since he has been admitted. He denies chest pain, shortness of breath, nausea, vomiting, weakness, fatigue. Review of Systems Review of Systems: All systems reviewed & are unremarkable except as noted in HPI and below Exam Const: General: cooperative, healthy appearing, no acute distress, well developed, alert, awake, Physically active, lethargic and tired appearing Nutritional Appearance: well nourished Orientation/consciousness: oriented to person, oriented to place, oriented to time, patient oriented x3 and lethargic Limitations: physical limitations HENMT: Head: normal to inspection Ears: hearing grossly normal bilaterally General nose exam: Normal external nose present Mouth: Yes Normal oral and palatal mucosa present, Yes lip normal and Yes tongue normal Teeth and gingiva: abnormal tooth and associated gingiva and poor dentition Eyes: General: appearance normal, both eyes and all related structures Pupils: Equal, round and reactive pupils present Neck: Neck: normal visual inspection, full ROM, trachea midline and supple Chest: Chest palpation & inspection: normal inspection of the chest Resp: Effort & Inspection: normal respiratory effort and able to speak in complete sentences Auscultation: clear to auscultation bilaterally Cardio: Jugular venous distension: no JVD Rate: regular rate Rhythm: regular rhythm Heart sounds: S1 normal heart sound present and S2 normal heart sound present Peripheral pulses: Peripheral pulses 2+ throughout GI: Inspectio
[2021-01-09] MEDS: SILVERGEL (ELTA) 45 ML 1 APPLIC TOPICAL (18:36)
[2021-01-09 19:44] VITALS: BP 107/58; PULSE 106; RESP 20; TEMP 37.1; O2SAT 96
[2021-01-09 20:16] LABS: Glucose Point of Care 334 mg/dl (65-105)
[2021-01-09] MEDS: INSULIN GLARGINE (*BKC) 100 UNITS/ML 20 UNITS SUB-Q (20:38)
[2021-01-10] VITALS (12 sets, daily range): BP systolic 104–133; BP diastolic 67–95; PULSE 68–101; RESP 12–22; TEMP 36–37.2; O2SAT 94–100
[2021-01-10 06:33] LABS: Hematocrit 35.4 % (42.0-52.0); Hemoglobin 11.7 g/dL (14.0-18.0); Mean Corpuscular HGB Conc 33.1 g/dl (32-36); Mean Corpuscular Hemoglobin 29.6 pg (26-34); Mean Corpuscular Volume 89.6 fl (80-100); Mean Platelet Volume 10.4 fl (7.4-10.4); Platelet Count Result 226 k/mm3 (150-375); Red Blood Count 3.95 M/mm3 (4.6-6.20); Red Cell Distribution Width 13.1 % (11.5-14.5); White Blood Count 5.4 K/mm3 (4.5-10.0)
[2021-01-10 07:22] LABS: Alanine Aminotransferase 16 U/L (4-50); Albumin Level 3.5 g/dL (3.5-5.1); Alkaline Phosphatase 105 U/L (38-126); Anion Gap 9 mmol/L (8-16); Aspartate Amino Transferase 26 U/L (17-59); Bilirubin,Total 0.2 mg/dL (0.2-1.3); Blood Urea Nitrogen 18 mg/dL (9-20); Calcium 8.6 mg/dL (8.4-10.2); Carbon Dioxide 25 mmol/L (22-30); Chloride 95 mmol/L (98-107); Cholesterol 127 mg/dL (0-200); Estimated CRCL calculation 71 ml/min; Estimated Glomerular Filt Rate > 60; Glucose 257 mg/dL (65-110); HDL Direct 21 mg/dL; Magnesium 1.6 mg/dL (1.6-2.3); Sodium 129 mmol/L (137-145); Triglycerides 86 mg/dL (<150)
[2021-01-10 07:34] LABS: LDL Cholesterol Direct 77 mg/dL
[2021-01-10 08:44] LABS: Glucose Point of Care 248 mg/dl (65-105)
--- NOTE | 2021-01-10 08:45 | PCPTNOTE ---
Attempted PT eval. Hold per RN due to having surgery this afternoon. Will try again tomorrow.
[2021-01-10 11:40] LABS: Glucose Point of Care 258 mg/dl (65-105)
--- NOTE | 2021-01-10 12:26 | PCNFU ---
Nutrition Follow-Up Complete: Altered nutrition related labs related to diabetes mellitus as evidenced by serum glucose of 326mg/dL. Goal: Patient will consume 50% of meals/supplements or greater. Patient has met current goal. No new goal. Pt current nutrition is NPO. Nutrition Recommendation: advancing to [facility] with Glucerna shakes BID post opt. Last recorded weight is 61.6 kg, no new weight to report. Bowel Motility:No BM to report. Labs Reviewed:Na 129,Glu 257 Meds Noted:Lantus,Vancomycin, Zosyn, NovoLog. Additional Notes: Nutrition follow up. Patient NPO for surgery today. Oral Intake has been greater than 75% of a [facility] diet. Diet supplements: Glucerna shakes BID providing an additional 220 kcals and 10 gms protein. Skin: 3rd right toe diabetic ulcer. Agree with diet orders. Monitoring: Follow up in 5 days.
--- NOTE | 2021-01-10 13:30 | PM.CNGS ---
Assessment and Plan Assessment and plan (1) Gangrene of toe of right foot: Code(s): I96 - Gangrene, not elsewhere classified Status: Acute Assessment and Plan: Discussed with patient. The toe was gangrenous and cannot be salvaged. He seems to have adequate blood supply to his foot. Will proceed with open right 3rd toe amputation under anesthesia today. I explained he will have an open wound that will take time to heal. The procedure the risks the benefits have been discussed. I also explained that there seems to be some changes of his 2nd toe but they do not appear to be gangrenous and I would not proceed with 2nd toe amputation at this time. It may be necessary in the future to amputate the 2nd toe as well. All was discussed he understands and agrees to go ahead. (2) Diabetic foot infection: Code(s): E11.628 - Type 2 diabetes mellitus with other skin complications; L08.9 - Local infection of the skin and subcutaneous tissue, unspecified Status: Acute Assessment and Plan: Continue antibiotics and improved glycemic control (3) Uncontrolled diabetes mellitus: Qualifiers: Glycemic state: with hyperglycemia Code(s): E11.65 - Type 2 diabetes mellitus with hyperglycemia Status: Acute History of Present Illness Consult details Consult date: 01/10/21 Reason for consult: other (Gangrene right 3rd toe) Narrative: Patient is a 65-year-old diabetic man who has already had a left leg amputation. He is a smoker. He presented 2 days ago with a painful black and right 3rd toe. He was started on IV antibiotics. He is seen now in consultation regarding his gangrenous 3rd toe with diabetic foot infection. Review of Systems Review of Systems: All systems reviewed & are unremarkable except as noted in HPI and below Constitutional: Constitutional: Denies chills and Denies fever(s) Cardiovascular: Cardiovascular: Denies chest pain, Denies diaphoresis, Denies dyspnea and Denies paroxysmal nocturnal dyspnea Respiratory: Respiratory: Denies chest congestion, Denies cough and Denies dyspnea Integumentary/Breasts: Skin/Breast: Denies lesions and Denies rash PMFSH Past Medical History Medical History Anxiety Atrial fibrillation Below-knee amputation of left lower extremity Depression Diabetes Diabetic retinopathy Hepatitis C HLD (hyperlipidemia) HTN (hypertension) Surgical History Surgical History Hx of appendectomy Hx of tonsillectomy Family History Family History Father Family history of diabetes mellitus in first degree relative Family history of coronary artery disease Son Family history of coronary artery disease Mother Family history of coronary artery disease Social History Social History Social History: 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 Patient stated that his son Ky will be her surrogate if anything were to happen. Patient also wishes to be DNR at this time. Smoking packs per day: 1 Smoking cigarettes per day: 20.0 Years smoked: 50 Smoking pack-years: 50.00 Smoking status: Current every day smoker Tobacco type: cigarettes Second hand tobacco smoke exposure: Yes Alcohol intake: never Substance use: current Substance use type: marijuana and methamphetamine Other substance usage details: Uses a couple times a week Living arrangements: with family Additional living arrangements comments: living conditions presently erratic was living with son but moved in with friend which is not working out Occupation/Education: retired Additional occupation/education comments: [employer] Gender identity (if verbalized by the patient): Male Sexual Orientation (if Verbaliz
--- NOTE | 2021-01-10 13:35 | WPDANESEPPF ---
Anes - Initial Pre Proc Eval Procedure: Operation Date: 01/10/21 16:30 Proposed Procedures p Right Third Toe Open Amputation(Right) - Paras Lozada MD Date/Time: 01/10/21 13:35 Surgeon: Lisette Joshi MD Pre Op Diagnosis: Right Foot Cellulitis Patient Data Age: 65 Gender: M Height: 1.85 m Weight: 61.6 kg Last Vital Signs Temp 36.6 C 01/10/21 05:33 Pulse 93 01/10/21 05:33 Resp 16 01/10/21 05:33 BP 115/67 01/10/21 05:33 Pulse Ox 96 01/10/21 10:17 Allergies Allergy/AdvReac Type Severity Reaction Status Date / Time No Known Allergies Allergy Mild Verified 01/08/21 03:28 Home Medications Medication Instructions Recorded Confirmed Type Basaglar KwikPen U-100 Insulin 18 unit SUBCUT DAILY 01/08/21 01/08/21 History Laboratory Tests 01/09/21 01/09/21 01/10/21 16:49 20:14 06:24 WBC 5.4 K/mm3 K/mm3 (4.5-10.0) RBC 3.95 M/mm3 L M/mm3 (4.6-6.20) Hgb 11.7 g/dL L g/dL (14.0-18.0) Hct 35.4 % L % (42.0-52.0) MCV 89.6 fl fl (80-100) MCH 29.6 pg pg (26-34) MCHC 33.1 g/dl g/dl (32-36) RDW 13.1 % % (11.5-14.5) Plt Count 226 k/mm3 k/mm3 (150-375) MPV 10.4 fl fl (7.4-10.4) Sodium Potassium Chloride Carbon Dioxide Anion Gap BUN Creatinine Estim Creat Clear Calc Estimated GFR Glucose POC Capillary Glucose 242 mg/dl H mg/dl 334 mg/dl H mg/dl (65-105) (65-105) Calcium Magnesium Total Bilirubin AST ALT Alkaline Phosphatase Total Protein Albumin Triglycerides Cholesterol LDL Cholesterol Direct HDL Direct Vancomycin Trough 01/10/21 01/10/21 01/10/21 06:24 06:45 08:42 WBC RBC Hgb Hct MCV MCH MCHC RDW Plt Count MPV Sodium 129 mmol/L L mmol/L (137-145) Potassium 4.0 mmol/L mmol/L (3.4-5.0) Chloride 95 mmol/L L mmol/L (98-107) Carbon Dioxide 25 mmol/L mmol/L (22-30) Anion Gap 9 mmol/L mmol/L (8-16) BUN 18 mg/dL mg/dL (9-20) Creatinine 0.80 mg/dL mg/dL (0.7-1.3) Estim Creat Clear Calc 71 ml/min ml/min Estimated GFR > 60 (59 - ) Glucose 257 mg/dL H mg/dL (65-110) POC Capillary Glucose 248 mg/dl H mg/dl (65-105) Calcium 8.6 mg/dL mg/dL (8.4-10.2) Magnesium 1.6 mg/dL mg/dL (1.6-2.3) Total Bilirubin 0.2 mg/dL mg/dL (0.2-1.3) AST 26 U/L U/L (17-59) ALT 16 U/L U/L (4-50) Alkaline Phosphatase 105 U/L U/L (38-126) Total Protein 7.0 g/dL g/dL (6.3-8.2) Albumin 3.5 g/dL g/dL (3.5-5.1) Triglycerides 86 mg/dL mg/dL (<150) Cholesterol 127 mg/dL mg/dL (0-200) LDL Cholesterol Direct 77 mg/dL mg/dL HDL Direct 21 mg/dL mg/dL Vancomycin Trough 6.0 ug/mL L ug/mL (10.0-20.0) 01/10/21 11:38 WBC RBC Hgb Hct MCV MCH MCHC RDW Plt Count MPV Sodium Potassium Chloride Carbon Dioxide Anion Gap BUN Creatinine Estim Creat Clear Calc Estimated GFR Glucose POC Capillary Glucose 258 mg/dl H mg/dl (65-105) Calcium Magnesium Total Bilirubin AST ALT Alkaline Phosphatase Total Protein Albumin Triglycerides Cholesterol LDL Cholesterol Direct HDL Direct Vancomycin Trough Patient hx anesthesia
--- NOTE | 2021-01-10 13:37 | WPDHPUPDATE1 ---
History and Physical Update Update Date/Time: 01/10/21 13:37 History and Physical has been reviewed, including an updated exam of the patient. There are NO changes in the patient's condition. Risks, benefits, and alternatives have been discussed and questions answered. Patient agrees to proceed with procedure.
--- NOTE | 2021-01-10 13:48 | P.PNIM_ITS ---
Progress Note: A&P Assessment and Plan (1) Right foot injury: Code(s): S99.921A - Unspecified injury of right foot, initial encounter Status: Acute Assessment and Plan: * wounds noted on the 2nd and 3rd toe * wound care consult- dressed according to instructions listed in chart * general surgery consulted thank you for your recommendations * surgical procedure for amputation scheduled for today * diabetes control * Zosyn 3.375 q.6 IV, vancomycin IV * blood cultures NGTD * deescalate antibiotics per blood cultures * PT/OT (2) HTN (hypertension): Code(s): I10 - Essential (primary) hypertension Status: Acute Assessment and Plan: * blood pressure 115/67 * adjust medications as needed * trend blood pressure (3) HLD (hyperlipidemia): Code(s): E78.5 - Hyperlipidemia, unspecified Status: Acute Assessment and Plan: * diet controlled * Cholesterol 127, HDL 21, LDL 77, triglycerides 86 all in normal range * considering adding a statin drug (4) Uncontrolled diabetes mellitus: Qualifiers: Glycemic state: with hyperglycemia Code(s): E11.65 - Type 2 diabetes mellitus with hyperglycemia Status: Acute Assessment and Plan: * patient states that his norm is to 300 to 400s * current glucose on labs 257 * Accu-Cheks AC and HS * continue home Lantus 18 units daily * sliding scale insulin * A1C ordered * rn diabetes educator consult * diabetic diet (5) Sepsis: Qualifiers: Sepsis acute organ dysfunction status: without acute organ dysfunction Sepsis type: sepsis due to unspecified organism Qualified Code(s): A41.9 - Sepsis, unspecified organism Code(s): A41.9 - Sepsis, unspecified organism Status: Acute Assessment and Plan: * Seems to be resolved at this time. * inclusions in of sepsis noted by profound tachycardia up to 120, blood pressure dropped from 137/75 to 106/73, respiratory rate increased from 16-18, temperature remained stable at 36.4? C, white blood cell count is 8.8 * source of infection is wound on right foot * glucose 326 * lactic acid red it to * Zosyn and vancomycin started * creatinine elevated 0.9 baseline seems to be at 0.6 * trend labs and vital signs Time Spent With Patient Time with patient: 25 - 35 minutes Subjective Date/time seen: 01/10/21 09:00 Interval history: Patient is a 65 year old male that is here for infection of the right 2nd and 3rd toe. Today he has no complaints. He does seem a little upset about having to wait for the surgical procedure to happen, however, he still needed the antibiotics. He is aware of what is going on and agrees to the plan of care at this time. He denies chest pain, shortness of breath, nausea, vomiting, abdominal pain, or weakness and fatigue. Review of Systems Review of Systems: All systems reviewed & are unremarkable except as noted in HPI and below Exam Const: General: cooperative, healthy appearing, no acute distress, well developed, alert, awake, Physically active, lethargic and tired appearing Nutritional Appearance: well nourished Orientation/consciousness: oriented to person, oriented to place, oriented to time, patient oriented x3 and lethargic Limitations: physical limitations HENMT: Head: normal to inspection Ears: hearing grossly normal bilaterally General nose exam: Normal external nose
--- NOTE | 2021-01-10 13:48 | PM.IMPN ---
Progress Note: A&P Assessment and Plan (1) Right foot injury: Code(s): S99.921A - Unspecified injury of right foot, initial encounter Status: Acute Assessment and Plan: wounds noted on the 2nd and 3rd toe wound care consult- dressed according to instructions listed in chart general surgery consulted thank you for your recommendations surgical procedure for amputation scheduled for today diabetes control Zosyn 3.375 q.6 IV, vancomycin IV blood cultures NGTD deescalate antibiotics per blood cultures PT/OT (2) HTN (hypertension): Code(s): I10 - Essential (primary) hypertension Status: Acute Assessment and Plan: blood pressure 115/67 adjust medications as needed trend blood pressure (3) HLD (hyperlipidemia): Code(s): E78.5 - Hyperlipidemia, unspecified Status: Acute Assessment and Plan: diet controlled Cholesterol 127, HDL 21, LDL 77, triglycerides 86 all in normal range considering adding a statin drug (4) Uncontrolled diabetes mellitus: Qualifiers: Glycemic state: with hyperglycemia Code(s): E11.65 - Type 2 diabetes mellitus with hyperglycemia Status: Acute Assessment and Plan: patient states that his norm is to 300 to 400s current glucose on labs 257 Accu-Cheks AC and HS continue home Lantus 18 units daily sliding scale insulin A1C ordered clinical nurse educator consult diabetic diet (5) Sepsis: Qualifiers: Sepsis acute organ dysfunction status: without acute organ dysfunction Sepsis type: sepsis due to unspecified organism Qualified Code(s): A41.9 - Sepsis, unspecified organism Code(s): A41.9 - Sepsis, unspecified organism Status: Acute Assessment and Plan: Seems to be resolved at this time. inclusions in of sepsis noted by profound tachycardia up to 120, blood pressure dropped from 137/75 to 106/73, respiratory rate increased from 16-18, temperature remained stable at 36.4? C, white blood cell count is 8.8 source of infection is wound on right foot glucose 326 lactic acid red it to Zosyn and vancomycin started creatinine elevated 0.9 baseline seems to be at 0.6 trend labs and vital signs Time Spent With Patient Time with patient: 25 - 35 minutes Subjective Date/time seen: 01/10/21 09:00 Interval history: Patient is a 65 year old male that is here for infection of the right 2nd and 3rd toe. Today he has no complaints. He does seem a little upset about having to wait for the surgical procedure to happen, however, he still needed the antibiotics. He is aware of what is going on and agrees to the plan of care at this time. He denies chest pain, shortness of breath, nausea, vomiting, abdominal pain, or weakness and fatigue. Review of Systems Review of Systems: All systems reviewed & are unremarkable except as noted in HPI and below Exam Const: General: cooperative, healthy appearing, no acute distress, well developed, alert, awake, Physically active, lethargic and tired appearing Nutritional Appearance: well nourished Orientation/consciousness: oriented to person, oriented to place, oriented to time, patient oriented x3 and lethargic Limitations: physical limitations HENMT: Head: normal to inspection Ears: hearing grossly normal bilaterally General nose exam: Normal external nose present Mouth: Yes Normal oral and palatal mucosa present, Yes lip normal and Yes tongue normal Teeth and gingiva: abnormal tooth and associated gingiva and poor dentition Eyes: General: appearance normal, both eyes and all related structures Pupils: Equal, round and reactive pupils present Neck: Neck: normal visual inspection, full ROM, trachea midline and supple Chest: Chest palpation & inspection: normal inspection of the chest Resp: Effort & Inspection: normal respiratory effort and able to speak in comple
[2021-01-10] MEDS: LACTATED RINGERS 1,000 ML 30 ML IV CONT (14:25)
--- NOTE | 2021-01-10 14:37 | PC.NURSE ---
To OR per bed at 1410, IV saline locked. Report given to RISHI Garza.
[2021-01-10] MEDS: ceFAZolin 2 GM/D5W 50 ML 2 GM/50 ML BAG IVPB (15:15)
--- NOTE | 2021-01-10 16:09 | W.PM.PROC2 ---
Procedure Note - Detailed Date of Procedure 01/10/21 Pre-op Diagnosis Gangrene right 3rd toe, diabetic foot infection Post-op Diagnosis same Procedure Performed Amputation right 3rd toe Surgeon Paras Lozdaa MD Intelligence Engineer Lizzy Mohan [facility] Anesthesia MAC and local (0.5% Marcaine plain) Indications Gangrenous infected right 3rd toe in insulin-dependent diabetic man Findings Base of proximal phalanx and surrounding tissue appeared to be uninvolved by the more distal gangrenous changes Description of Procedure Patient was taken to surgery and IV sedation was administered. The right foot was prepped and draped. Local anesthetic was infiltrated into the base of the toe particularly at the areas of the digital nerve. Then an elliptical incision was made oriented anterior posterior. The incision went through the skin and down through the tendinous structures of the proximal phalanx very near the metatarsal phalangeal joint. Periosteal elevator was used and the proximal phalanx was exposed. The toe was divided just above the metatarsophalangeal joint. Rongeurs were used to remove the remainder of the proximal phalanx that was not smooth and regular. This made the surface smooth and regular. Cautery was used for hemostasis. The wound edges were loosely approximated with 3 0 Vicryl suture. The wound was dressed with Xeroform gauze, fluffs, Kerlix roll, 4 in Abrahan wrap. Patient was awakened and taken to recovery in good condition. Sponge and needle counts were correct x2. Estimated Blood Loss 5 Urine Output 200 Drains No Packing No Pathology yes (Right 3rd toe) Complications None Condition stable Disposition PACU
[2021-01-10 16:26] LABS: Glucose Point of Care 146 mg/dl (65-105)
[2021-01-10] MEDS: LACTATED RINGERS 1,000 ML 60 ML IV CONT (17:25)
--- NOTE | 2021-01-10 17:45 | PC.NURSE ---
Returned from OR per bed at 1655. Report received from RISHI Baltazar.
[2021-01-10] MEDS: ENOXAPARIN 30 MG/0.3 ML SYRINGE SUB-Q (21:08)
[2021-01-10] MEDS: INSULIN GLARGINE (*BKC) 100 UNITS/ML 20 UNITS SUB-Q (21:08)
[2021-01-10 21:20] LABS: Glucose Point of Care 262 mg/dl (65-105)
[2021-01-11] VITALS: BP 140/79; PULSE 101; RESP 18; TEMP 37.1; O2SAT 97
[2021-01-11 04:00] VITALS: BP 104/59; PULSE 102; RESP 18; TEMP 36.9; O2SAT 96
[2021-01-11 07:14] LABS: Basophils Percent Auto 0.5 % (0.2-1.2); Eosinophils Absolute Auto 0.2 K/mm3 (0-0.3); Eosinophils Percent Auto 2.9 % (0-4.4); Hematocrit 34.5 % (42.0-52.0); Hemoglobin 11.4 g/dL (14.0-18.0); Immature Granulocyte Absolute 0.02 K/mm3 (0.00-0.031); Immature Granulocyte Percent A 0.3 % (0-0.5); Lymphocytes Absolute Auto 1.31 K/mm3 (0.9-3.2); Lymphocytes Percent Auto 22.2 % (18.3-44.2); Mean Corpuscular Hemoglobin 29.1 pg (26-34); Mean Platelet Volume 10.4 fl (7.4-10.4); Monocytes Absolute Auto 0.5 K/mm3 (0.1-0.6); Neutrophils Absolute Auto 3.8 K/mm3 (1.3-6.7); Neutrophils Percent Auto 65.1 % (45.5-73.1); Platelet Count Result 240 k/mm3 (150-375); Red Blood Count 3.92 M/mm3 (4.6-6.20); Red Cell Distribution Width 13.2 % (11.5-14.5); White Blood Count 5.9 K/mm3 (4.5-10.0)
[2021-01-11 07:30] LABS: Hemoglobin A1C 11.9 % (<5.7)
[2021-01-11 07:39] LABS: Alanine Aminotransferase 14 U/L (4-50); Albumin Level 3.5 g/dL (3.5-5.1); Alkaline Phosphatase 105 U/L (38-126); Anion Gap 6 mmol/L (8-16); Aspartate Amino Transferase 28 U/L (17-59); Bilirubin,Total 0.3 mg/dL (0.2-1.3); Blood Urea Nitrogen 13 mg/dL (9-20); Calcium 8.7 mg/dL (8.4-10.2); Carbon Dioxide 28 mmol/L (22-30); Chloride 98 mmol/L (98-107); Estimated CRCL calculation 80 ml/min; Estimated Glomerular Filt Rate > 60; Glucose 195 mg/dL (65-110); Magnesium 1.3 mg/dL (1.6-2.3); Potassium 4.4 mmol/L (3.4-5.0); Sodium 132 mmol/L (137-145)
[2021-01-11 08:00] VITALS: BP 116/72; PULSE 95; RESP 16; TEMP 36.7; O2SAT 95
[2021-01-11 08:06] LABS: Glucose Point of Care 186 mg/dl (65-105)
[2021-01-11 08:39] LABS: Hypochromasia 1+ (NORMAL); Platelet Estimate Adequate (Adequate)
[2021-01-11] MEDS: ENOXAPARIN 30 MG/0.3 ML SYRINGE SUB-Q ×2 (09:16→20:28)
--- NOTE | 2021-01-11 11:28 | PM.PNGS ---
Progress Note: A&P Assessment and Plan (1) Gangrene of toe of right foot: Code(s): I96 - Gangrene, not elsewhere classified Status: Acute Assessment and Plan: Amputation site looks good postop day 1. Start silver gel dressings with bulky gauze and Kerlix roll with Abrahan wrap. Also wear cast shoe. May bear weight on right foot for transfers only. (2) Diabetic foot infection: Code(s): E11.628 - Type 2 diabetes mellitus with other skin complications; L08.9 - Local infection of the skin and subcutaneous tissue, unspecified Status: Acute Assessment and Plan: Continue antibiotic therapy Subjective Subjective Date/Time Seen: 01/11/21 11:28 Post Op day: 1 Patient reports: no new complaints Exam Extrem: Right lower extremity: foot ( 3rd toe amp site looks good, healing. No signs gangrene or new infection.) Objective Data Vital Signs Vital Signs: Vital Signs - 24 hr 01/10/21 14:26 01/10/21 15:59 01/10/21 16:16 Temperature 37.1 C 36.1 C L Pulse Rate 92 90 86 Respiratory Rate 20 12 20 Blood Pressure 122/74 104/71 130/75 Pulse Oximetry 96 100 100 01/10/21 16:31 01/10/21 16:42 01/10/21 17:00 Temperature 36.1 C L Pulse Rate 88 90 90 Respiratory Rate 22 H 20 16 Blood Pressure 120/95 H 130/80 126/75 Pulse Oximetry 97 97 98 01/10/21 17:15 01/10/21 17:45 01/10/21 18:45 Temperature 36.0 C L 36.0 C L 36.3 C L Pulse Rate 88 91 96 Respiratory Rate 16 18 16 Blood Pressure 133/81 131/76 128/73 Pulse Oximetry 97 98 98 01/10/21 20:00 01/11/21 00:00 01/11/21 04:00 Temperature 37.2 C 37.1 C 36.9 C Pulse Rate 101 H 101 H 102 H Respiratory Rate 18 18 18 Blood Pressure 132/76 140/79 104/59 L Pulse Oximetry 97 97 96 01/11/21 08:00 Temperature 36.7 C Pulse Rate 95 Respiratory Rate 16 Blood Pressure 116/72 Pulse Oximetry 95 Intake/Output Intake/Output: Intake & Output 0801/09/21 01/10/21 01/11/21 23:59 23:59 23:59 23:59 Intake Total 1400 1830 1280 770 Output Total 550 4621 765 1698 Balance 850 258 580 -280 Meds/Results Medications: Active Medications Generic Name Dose Route Start Last Admin Trade Name Freq PRN Reason Stop Dose Admin Acetaminophen 650 mg 01/08/21 23:17 01/08/21 23:38 Acetaminophen 325 Mg Tablet PO 650 mg Q6H PRN Administration Mild Pain (1-3) or Fever Hydrocodone Bitart/Acetaminophen 1 tab 01/10/21 16:43 Hydrocodone/Acetaminophen (*Crx) 5-325 Mg Tablet PO Q4H PRN Pain Rated 4-6 Dextrose 12.5 gm 01/08/21 11:55 Dextrose 50% 25 Gm/50 Ml Syringe IV PUSH PRN PRN Hypoglycemia Protocol Enoxaparin Sodium 30 mg 01/10/21 21:00 01/11/21 09:16 Enoxaparin 30 Mg/0.3 Ml Syringe SUB-Q 30 mg Q12HR OMI Administration Glucagon 1 mg 01/08/21 11:55 Glucagon For Inj 1 Mg Vial IM PRN PRN Hypoglycemia Protocol Glucose 15 gm 01/08/21 11:55 Glucose Oral Gel 15 Gm Of Glucse In 37.5 Gm Tube PO PRN PRN Hypoglycemia Protocol Dextrose 1,000 mls @ 100 mls/hr 01/08/21 11:55 Dextrose 5% 1,000 Ml IVPB PRN PRN Hypoglycemia Protocol Piperacillin/Tazobactam/Dextrose 3.375 gm in 50 mls @ 100 mls/hr 01/08/21 12:00 01/11/21 06:32 Zosyn 3.375 Gm/D5w 50ml Pm IVPB 100 mls/hr Q6HR OMI Administration Insulin Aspart 4 - 8 units 01/08/21 12:00 01/11/21 09:17 Insulin Aspart (*Bkc) 100 Units/Ml SUB-Q Not Given TIDWM OMI Protocol Insulin Glargine 20 units 01/09/21 21:00 01/10/21 21:08 Insulin Glargine (*Bkc) 100 Units/Ml SUB-Q 20 units HS OMI Administration Morphine Sulfate 2 mg 01/10/21 16:43 Morphine Sulfate (*Crx) 2 Mg/Ml Inj IV PUSH Q2H PRN Pain Rated 7-10 Silver Nitrate 1 applic 01/11/21 09:00 Silvergel (Elta) 45 Ml TOPICAL DAILY OMI Radiology Results: ITS Impressions Foot X-Ray 01/07/21 18:22 IMPRESSION: Minimal plantar and posterior calcaneal enthesopathy Osteoarth
[2021-01-11] MEDS: SILVERGEL (ELTA) 45 ML 1 APPLIC TOPICAL (11:34)
[2021-01-11 12:00] VITALS: BP 128/73; PULSE 93; RESP 16; TEMP 36.9; O2SAT 96
[2021-01-11 12:03] LABS: Glucose Point of Care 220 mg/dl (65-105)
[2021-01-11] MEDS: INSULIN ASPART (*BKC) 100 UNITS/ML SUB-Q ×2 (12:13→17:21)
--- NOTE | 2021-01-11 13:01 | PCPTNOTE ---
Attempted PT eval. Pt refused stated go on with yourself . Pt encouraged to participate and he still refused. Will attempt again tomorrow.
[2021-01-11 14:35] VITALS: BMI 17.9
--- NOTE | 2021-01-11 15:35 | PCOTNOTE ---
Reassessment completed following surgical procedure on RT foot.
[2021-01-11 16:00] VITALS: BP 137/72; PULSE 97; RESP 16; TEMP 36.9; O2SAT 97
[2021-01-11 17:21] LABS: Glucose Point of Care 159 mg/dl (65-105)
--- NOTE | 2021-01-11 17:44 | P.PNIM_ITS ---
Progress Note: A&P Assessment and Plan (1) Gangrene of toe of right foot: Code(s): I96 - Gangrene, not elsewhere classified Status: Acute Assessment and Plan: * wounds noted on the 2nd and 3rd toe * wound care consult- dressed according to instructions listed in chart * general surgery consulted thank you for your recommendations * Third toe amputated on 01/10/2021 * diabetes control with 15 units of Lantus and 5 units pre meal of NovoLog. * Zosyn 3.375 q.6 IV, vancomycin IV * blood cultures NGTD * deescalate antibiotics per blood cultures * PT/OT (2) HTN (hypertension): Code(s): I10 - Essential (primary) hypertension Status: Acute Assessment and Plan: * blood pressure 137/72 * adjust medications as needed * trend blood pressure (3) HLD (hyperlipidemia): Code(s): E78.5 - Hyperlipidemia, unspecified Status: Acute Assessment and Plan: * diet controlled * Cholesterol 127, HDL 21, LDL 77, triglycerides 86 all in normal range * considering adding a statin drug (4) Uncontrolled diabetes mellitus: Qualifiers: Glycemic state: with hyperglycemia Code(s): E11.65 - Type 2 diabetes mellitus with hyperglycemia Status: Acute Assessment and Plan: * patient states that his norm is to 300 to 400s * current glucose on labs 195 * Accu-Cheks AC and HS * continue home Lantus 15 units daily * Add 5 units NovoLog before meals. * sliding scale insulin * A1C 11.9 * clinical trial educator consult recommendations given * diabetic diet (5) Sepsis: Qualifiers: Sepsis acute organ dysfunction status: without acute organ dysfunction Sepsis type: sepsis due to unspecified organism Qualified Code(s): A41.9 - Sepsis, unspecified organism Code(s): A41.9 - Sepsis, unspecified organism Status: Acute Assessment and Plan: * Seems to be resolved at this time. * inclusions in of sepsis noted by profound tachycardia up to 120, blood pressure dropped from 137/75 to 106/73, respiratory rate increased from 16-18, temperature remained stable at 36.4? C, white blood cell count is 8.8 * source of infection is wound on right foot * glucose 326 * lactic acid red it to * Zosyn and vancomycin started * creatinine elevated 0.9 baseline seems to be at 0.6 * trend labs and vital signs (6) Diabetic foot infection: Code(s): E11.628 - Type 2 diabetes mellitus with other skin complications; L08.9 - Local infection of the skin and subcutaneous tissue, unspecified Status: Acute Assessment and Plan: * See above Subjective Date/time seen: 01/11/21 13:30 Interval history: Patient is 65-year-old male who is presented with gangrene to the 3rd toe on the right foot. Surgery was consulted patient was taken to surgery yesterday for amputation of the 3rd toe. Upon examination dressing was wrapped with gauze and silver nitrate was applied. Patient is anxious to get however it was instructed that patient needs to stay for couple more days and currently has a weight-bearing status of touch for pivot. [facility] Patient was not interested. Patient stated he has no current complaints. I did explain the patient that it is worrisome that the patient has no feeling in his feet. Pulses are palpable. Patient has no chest pain, shortness but, weakness fatigue, fevers sweats, chills. Review of Systems
--- NOTE | 2021-01-11 17:44 | PM.IMPN ---
Progress Note: A&P Assessment and Plan (1) Gangrene of toe of right foot: Code(s): I96 - Gangrene, not elsewhere classified Status: Acute Assessment and Plan: wounds noted on the 2nd and 3rd toe wound care consult- dressed according to instructions listed in chart general surgery consulted thank you for your recommendations Third toe amputated on 01/10/2021 diabetes control with 15 units of Lantus and 5 units pre meal of NovoLog. Zosyn 3.375 q.6 IV, vancomycin IV blood cultures NGTD deescalate antibiotics per blood cultures PT/OT (2) HTN (hypertension): Code(s): I10 - Essential (primary) hypertension Status: Acute Assessment and Plan: blood pressure 137/72 adjust medications as needed trend blood pressure (3) HLD (hyperlipidemia): Code(s): E78.5 - Hyperlipidemia, unspecified Status: Acute Assessment and Plan: diet controlled Cholesterol 127, HDL 21, LDL 77, triglycerides 86 all in normal range considering adding a statin drug (4) Uncontrolled diabetes mellitus: Qualifiers: Glycemic state: with hyperglycemia Code(s): E11.65 - Type 2 diabetes mellitus with hyperglycemia Status: Acute Assessment and Plan: patient states that his norm is to 300 to 400s current glucose on labs 195 Accu-Cheks AC and HS continue home Lantus 15 units daily Add 5 units NovoLog before meals. sliding scale insulin A1C 11.9 clinical educator consult recommendations given diabetic diet (5) Sepsis: Qualifiers: Sepsis acute organ dysfunction status: without acute organ dysfunction Sepsis type: sepsis due to unspecified organism Qualified Code(s): A41.9 - Sepsis, unspecified organism Code(s): A41.9 - Sepsis, unspecified organism Status: Acute Assessment and Plan: Seems to be resolved at this time. inclusions in of sepsis noted by profound tachycardia up to 120, blood pressure dropped from 137/75 to 106/73, respiratory rate increased from 16-18, temperature remained stable at 36.4? C, white blood cell count is 8.8 source of infection is wound on right foot glucose 326 lactic acid red it to Zosyn and vancomycin started creatinine elevated 0.9 baseline seems to be at 0.6 trend labs and vital signs (6) Diabetic foot infection: Code(s): E11.628 - Type 2 diabetes mellitus with other skin complications; L08.9 - Local infection of the skin and subcutaneous tissue, unspecified Status: Acute Assessment and Plan: See above Subjective Date/time seen: 01/11/21 13:30 Interval history: Patient is 65-year-old male who is presented with gangrene to the 3rd toe on the right foot. Surgery was consulted patient was taken to surgery yesterday for amputation of the 3rd toe. Upon examination dressing was wrapped with gauze and silver nitrate was applied. Patient is anxious to get however it was instructed that patient needs to stay for couple more days and currently has a weight-bearing status of touch for pivot. [facility]. Patient was not interested. Patient stated he has no current complaints. I did explain the patient that it is worrisome that the patient has no feeling in his feet. Pulses are palpable. Patient has no chest pain, shortness but, weakness fatigue, fevers sweats, chills. Review of Systems Review of Systems: All systems reviewed & are unremarkable except as noted in HPI and below Exam Const: General: cooperative, healthy appearing, no acute distress, well developed, alert, awake, Physically active, lethargic and tired appearing Nutritional Appearance: well nourished Orientation/consciousness: oriented to person, oriented to place, oriented to time, patient oriented x3 and lethargic Limitations: physical limitations HENMT: Head: normal to inspectio
[2021-01-11] MEDS: INSULIN GLARGINE (*BKC) 100 UNITS/ML 15 UNITS SUB-Q (20:28)
[2021-01-11 20:36] LABS: Glucose Point of Care 255 mg/dl (65-105)
[2021-01-11 21:47] VITALS: BP 132/82; PULSE 98; RESP 18; TEMP 37.2; O2SAT 95
[2021-01-12 05:59] VITALS: BP 101/58; PULSE 90; RESP 18; TEMP 36.7; O2SAT 93
[2021-01-12 08:31] LABS: Glucose Point of Care 181 mg/dl (65-105)
[2021-01-12 09:10] LABS: Basophils Percent Auto 0.3 % (0.2-1.2); Eosinophils Absolute Auto 0.2 K/mm3 (0-0.3); Eosinophils Percent Auto 2.7 % (0-4.4); Hematocrit 36.4 % (42.0-52.0); Immature Granulocyte Absolute 0.03 K/mm3 (0.00-0.031); Immature Granulocyte Percent A 0.5 % (0-0.5); Lymphocytes Absolute Auto 1.59 K/mm3 (0.9-3.2); Lymphocytes Percent Auto 26.5 % (18.3-44.2); Mean Corpuscular Hemoglobin 29.2 pg (26-34); Mean Corpuscular Volume 88.6 fl (80-100); Mean Platelet Volume 9.7 fl (7.4-10.4); Monocytes Absolute Auto 0.4 K/mm3 (0.1-0.6); Monocytes Percent Auto 7.2 % (2.6-8.5); Neutrophils Absolute Auto 3.8 K/mm3 (1.3-6.7); Neutrophils Percent Auto 62.8 % (45.5-73.1); Platelet Count Result 231 k/mm3 (150-375); Red Blood Count 4.11 M/mm3 (4.6-6.20); Red Cell Distribution Width 13.2 % (11.5-14.5)
[2021-01-12 09:25] LABS: Alanine Aminotransferase 16 U/L (4-50); Albumin Level 3.6 g/dL (3.5-5.1); Alkaline Phosphatase 104 U/L (38-126); Anion Gap 7 mmol/L (8-16); Aspartate Amino Transferase 26 U/L (17-59); Bilirubin,Total 0.2 mg/dL (0.2-1.3); Blood Urea Nitrogen 12 mg/dL (9-20); Calcium 8.9 mg/dL (8.4-10.2); Carbon Dioxide 28 mmol/L (22-30); Chloride 94 mmol/L (98-107); Estimated CRCL calculation 80 ml/min; Estimated Glomerular Filt Rate > 60; Glucose 227 mg/dL (65-110); Potassium 4.1 mmol/L (3.4-5.0); Sodium 129 mmol/L (137-145)
[2021-01-12] MEDS: INSULIN ASPART (*BKC) 100 UNITS/ML SUB-Q ×5 (09:55→18:21)
[2021-01-12] MEDS: ENOXAPARIN 30 MG/0.3 ML SYRINGE SUB-Q ×2 (09:55→20:20)
[2021-01-12] MEDS: SILVERGEL (ELTA) 45 ML 1 APPLIC TOPICAL (10:00)
[2021-01-12 12:22] LABS: Glucose Point of Care 244 mg/dl (65-105)
[2021-01-12 14:00] VITALS: BP 123/73; PULSE 98; RESP 18; TEMP 36.1; O2SAT 97
--- NOTE | 2021-01-12 14:32 | P.PNIM_ITS ---
Progress Note: A&P Assessment and Plan (1) Gangrene of toe of right foot: Code(s): I96 - Gangrene, not elsewhere classified Status: Acute Assessment and Plan: * wounds noted on the 2nd and 3rd toe * wound care consult- dressed according to instructions listed in chart * general surgery consulted thank you for your recommendations * Third toe amputated on 01/10/2021 * diabetes control with 15 units of Lantus and 5 units pre meal of NovoLog. * Zosyn 3.375 q.6 IV, vancomycin IV * blood cultures NGTD * deescalate antibiotics per blood cultures * PT/OT (2) HTN (hypertension): Code(s): I10 - Essential (primary) hypertension Status: Acute Assessment and Plan: * blood pressure 101/58 * adjust medications as needed * trend blood pressure (3) HLD (hyperlipidemia): Code(s): E78.5 - Hyperlipidemia, unspecified Status: Acute Assessment and Plan: * diet controlled * Cholesterol 127, HDL 21, LDL 77, triglycerides 86 all in normal range * considering adding a statin drug (4) Uncontrolled diabetes mellitus: Qualifiers: Glycemic state: with hyperglycemia Code(s): E11.65 - Type 2 diabetes mellitus with hyperglycemia Status: Acute Assessment and Plan: * patient states that his norm is to 300 to 400s * current glucose on labs 227 * Accu-Cheks AC and HS * continue home Lantus 15 units daily, increased to BID * Add 5 units NovoLog before meals. * sliding scale insulin * A1C 11.9 * paint supervisor consult recommendations given * diabetic diet (5) Sepsis: Qualifiers: Sepsis acute organ dysfunction status: without acute organ dysfunction Sepsis type: sepsis due to unspecified organism Qualified Code(s): A41.9 - Sepsis, unspecified organism Code(s): A41.9 - Sepsis, unspecified organism Status: Acute Assessment and Plan: * Seems to be resolved at this time. * inclusions in of sepsis noted by profound tachycardia up to 120, blood pressure dropped from 137/75 to 106/73, respiratory rate increased from 16-18, temperature remained stable at 36.4? C, white blood cell count is 8.8 * source of infection is wound on right foot * glucose 326 * lactic acid red it to * Zosyn and vancomycin started * creatinine elevated 0.9 baseline seems to be at 0.6 * trend labs and vital signs (6) Diabetic foot infection: Code(s): E11.628 - Type 2 diabetes mellitus with other skin complications; L08.9 - Local infection of the skin and subcutaneous tissue, unspecified Status: Acute Assessment and Plan: * See above Time Spent With Patient Time with patient: Greater than 35 minutes Subjective Date/time seen: 01/12/21 13:00 Interval history: Patient is a 65 year old male who is here for gangrene of the right foot/toe. Patient was sleeping at time of exam. He stated that he still does not have any pain. He also stated that he did well with PT yesterday. He also stated that he is eating well and tolerating food. He denies chest pain, shortness of breath, nausea, vomiting, abdominal pain, weakness, fatigue, fevers, sweats, or chills. Review of Systems Review of Systems: All systems reviewed & are unremarkable except as noted in HPI and below Exam Const: General: cooperative, healthy appearing, comfortable, no acute distress, well developed, alert, awake, Physically active a
--- NOTE | 2021-01-12 14:32 | PM.IMPN ---
Progress Note: A&P Assessment and Plan (1) Gangrene of toe of right foot: Code(s): I96 - Gangrene, not elsewhere classified Status: Acute Assessment and Plan: wounds noted on the 2nd and 3rd toe wound care consult- dressed according to instructions listed in chart general surgery consulted thank you for your recommendations Third toe amputated on 01/10/2021 diabetes control with 15 units of Lantus and 5 units pre meal of NovoLog. Zosyn 3.375 q.6 IV, vancomycin IV blood cultures NGTD deescalate antibiotics per blood cultures PT/OT (2) HTN (hypertension): Code(s): I10 - Essential (primary) hypertension Status: Acute Assessment and Plan: blood pressure 101/58 adjust medications as needed trend blood pressure (3) HLD (hyperlipidemia): Code(s): E78.5 - Hyperlipidemia, unspecified Status: Acute Assessment and Plan: diet controlled Cholesterol 127, HDL 21, LDL 77, triglycerides 86 all in normal range considering adding a statin drug (4) Uncontrolled diabetes mellitus: Qualifiers: Glycemic state: with hyperglycemia Code(s): E11.65 - Type 2 diabetes mellitus with hyperglycemia Status: Acute Assessment and Plan: patient states that his norm is to 300 to 400s current glucose on labs 227 Accu-Cheks AC and HS continue home Lantus 15 units daily, increased to BID Add 5 units NovoLog before meals. sliding scale insulin A1C 11.9 certified diabetes educator consult recommendations given diabetic diet (5) Sepsis: Qualifiers: Sepsis acute organ dysfunction status: without acute organ dysfunction Sepsis type: sepsis due to unspecified organism Qualified Code(s): A41.9 - Sepsis, unspecified organism Code(s): A41.9 - Sepsis, unspecified organism Status: Acute Assessment and Plan: Seems to be resolved at this time. inclusions in of sepsis noted by profound tachycardia up to 120, blood pressure dropped from 137/75 to 106/73, respiratory rate increased from 16-18, temperature remained stable at 36.4? C, white blood cell count is 8.8 source of infection is wound on right foot glucose 326 lactic acid red it to Zosyn and vancomycin started creatinine elevated 0.9 baseline seems to be at 0.6 trend labs and vital signs (6) Diabetic foot infection: Code(s): E11.628 - Type 2 diabetes mellitus with other skin complications; L08.9 - Local infection of the skin and subcutaneous tissue, unspecified Status: Acute Assessment and Plan: See above Time Spent With Patient Time with patient: Greater than 35 minutes Subjective Date/time seen: 01/12/21 13:00 Interval history: Patient is a 65 year old male who is here for gangrene of the right foot/toe. Patient was sleeping at time of exam. He stated that he still does not have any pain. He also stated that he did well with PT yesterday. He also stated that he is eating well and tolerating food. He denies chest pain, shortness of breath, nausea, vomiting, abdominal pain, weakness, fatigue, fevers, sweats, or chills. Review of Systems Review of Systems: All systems reviewed & are unremarkable except as noted in HPI and below Exam Const: General: cooperative, healthy appearing, comfortable, no acute distress, well developed, alert, awake, Physically active and tired appearing Nutritional Appearance: well nourished, thin and underweight Orientation/consciousness: oriented to person, oriented to place, oriented to time, patient oriented x3 and lethargic Limitations: physical limitations HENMT: Head: normal to inspection Ears: hearing grossly normal bilaterally General nose exam: Normal external nose present Mouth: Yes Normal oral and palatal mucosa present, Yes lip normal and Yes tongue normal Teeth and gingiva: abnormal tooth and associated gingiva and poor dentition
[2021-01-12 16:23] LABS: Glucose Point of Care 214 mg/dl (65-105)
[2021-01-12] MEDS: INSULIN GLARGINE (*BKC) 100 UNITS/ML 15 UNITS SUB-Q (18:21)
[2021-01-12 20:56] LABS: Glucose Point of Care 156 mg/dl (65-105)
[2021-01-12 22:00] VITALS: BP 118/69; PULSE 92; RESP 18; TEMP 37.1; O2SAT 96
[2021-01-13 06:00] VITALS: BP 122/74; PULSE 90; RESP 18; TEMP 35.6; O2SAT 96
[2021-01-13 06:12] LABS: Hematocrit 35.5 % (42.0-52.0); Hemoglobin 11.9 g/dL (14.0-18.0); Mean Corpuscular HGB Conc 33.5 g/dl (32-36); Mean Corpuscular Hemoglobin 29.2 pg (26-34); Mean Platelet Volume 10.1 fl (7.4-10.4); Platelet Count Result 255 k/mm3 (150-375); Red Blood Count 4.08 M/mm3 (4.6-6.20); Red Cell Distribution Width 13.1 % (11.5-14.5); White Blood Count 6.3 K/mm3 (4.5-10.0)
[2021-01-13 06:29] LABS: Alanine Aminotransferase 18 U/L (4-50); Albumin Level 3.6 g/dL (3.5-5.1); Alkaline Phosphatase 100 U/L (38-126); Anion Gap 7 mmol/L (8-16); Aspartate Amino Transferase 39 U/L (17-59); Bilirubin,Total 0.3 mg/dL (0.2-1.3); Blood Urea Nitrogen 14 mg/dL (9-20); Calcium 8.9 mg/dL (8.4-10.2); Carbon Dioxide 29 mmol/L (22-30); Chloride 100 mmol/L (98-107); Estimated CRCL calculation 71 ml/min; Estimated Glomerular Filt Rate > 60; Glucose 140 mg/dL (65-110); Magnesium 1.6 mg/dL (1.6-2.3); Sodium 136 mmol/L (137-145)
[2021-01-13 08:00] VITALS: PULSE 90; RESP 18; O2SAT 96
[2021-01-13 08:32] LABS: Glucose Point of Care 220 mg/dl (65-105)
[2021-01-13] MEDS: INSULIN ASPART (*BKC) 100 UNITS/ML SUB-Q ×4 (08:44→17:51)
[2021-01-13] MEDS: MAGNESIUM SULF 4 GM/WATER100ML 4 GM/100 ML BAG IVPB (08:47)
[2021-01-13] MEDS: ENOXAPARIN 30 MG/0.3 ML SYRINGE SUB-Q ×2 (08:48→20:55)
[2021-01-13] MEDS: INSULIN GLARGINE (*BKC) 100 UNITS/ML 15 UNITS SUB-Q (08:48)
--- NOTE | 2021-01-13 10:57 | P.PNIM_ITS ---
Progress Note: A&P Assessment and Plan (1) Gangrene of toe of right foot: Code(s): I96 - Gangrene, not elsewhere classified Status: Acute Assessment and Plan: * wounds noted on the 2nd and 3rd toe * wound care consult- dressed according to instructions listed in chart * general surgery consulted thank you for your recommendations * Third toe amputated on 01/10/2021 * diabetes control with 15 units of Lantus BID and 5 units pre meal of NovoLog. * Zosyn 3.375 q.6 IV, vancomycin IV * blood cultures NGTD * deescalate antibiotics per blood cultures * PT/OT * weight bearing to pivot only (2) Uncontrolled diabetes mellitus: Qualifiers: Glycemic state: with hyperglycemia Code(s): E11.65 - Type 2 diabetes mellitus with hyperglycemia Status: Acute Assessment and Plan: * patient states that his norm is to 300 to 400s * current glucose on labs 227 * Accu-Cheks AC and HS * increase Lantus to 20 units BID * Add 5 units NovoLog before meals. * sliding scale insulin * A1C 11.9 * development educator consult recommendations given * diabetic diet (3) HTN (hypertension): Code(s): I10 - Essential (primary) hypertension Status: Acute Assessment and Plan: * blood pressure 122/74 * adjust medications as needed * trend blood pressure (4) HLD (hyperlipidemia): Code(s): E78.5 - Hyperlipidemia, unspecified Status: Acute Assessment and Plan: * diet controlled * Cholesterol 127, HDL 21, LDL 77, triglycerides 86 all in normal range * considering adding a statin drug (5) Sepsis: Qualifiers: Sepsis acute organ dysfunction status: without acute organ dysfunction Sepsis type: sepsis due to unspecified organism Qualified Code(s): A41.9 - Sepsis, unspecified organism Code(s): A41.9 - Sepsis, unspecified organism Status: Acute Assessment and Plan: * Seems to be resolved at this time. * inclusions in of sepsis noted by profound tachycardia up to 120, blood pressure dropped from 137/75 to 106/73, respiratory rate increased from 16-18, temperature remained stable at 36.4? C, white blood cell count is 8.8 * source of infection is wound on right foot * glucose 326 * lactic acid red it to * Zosyn and vancomycin started * creatinine elevated 0.9 baseline seems to be at 0.6 * trend labs and vital signs (6) Diabetic foot infection: Code(s): E11.628 - Type 2 diabetes mellitus with other skin complications; L08.9 - Local infection of the skin and subcutaneous tissue, unspecified Status: Acute Assessment and Plan: * See above Time Spent With Patient Time with patient: Greater than 35 minutes Subjective Date/time seen: 01/13/21 10:57 Interval history: Patient is a 65-year-old male who is here for gangrene of the right 3rd toe. Patient is still unchanged from yesterday. He has no complaints and denies chest pain, shortness of breath, weakness, fatigue, pain, fevers, sweats, chills. Patient is also tolerating fluids and is without nausea vomiting. Was concerned about this patient being in an adult diaper. I also think that this patient should be getting up to chair and also keep working on moving. This patient also expressed that he would like that to be put on a short acting insulin upon discharge. Review of Systems Review of Systems: All systems reviewed & are unremarkable except as noted in HPI
--- NOTE | 2021-01-13 10:57 | PM.IMPN ---
Progress Note: A&P Assessment and Plan (1) Gangrene of toe of right foot: Code(s): I96 - Gangrene, not elsewhere classified Status: Acute Assessment and Plan: wounds noted on the 2nd and 3rd toe wound care consult- dressed according to instructions listed in chart general surgery consulted thank you for your recommendations Third toe amputated on 01/10/2021 diabetes control with 15 units of Lantus BID and 5 units pre meal of NovoLog. Zosyn 3.375 q.6 IV, vancomycin IV blood cultures NGTD deescalate antibiotics per blood cultures PT/OT weight bearing to pivot only (2) Uncontrolled diabetes mellitus: Qualifiers: Glycemic state: with hyperglycemia Code(s): E11.65 - Type 2 diabetes mellitus with hyperglycemia Status: Acute Assessment and Plan: patient states that his norm is to 300 to 400s current glucose on labs 227 Accu-Cheks AC and HS increase Lantus to 20 units BID Add 5 units NovoLog before meals. sliding scale insulin A1C 11.9 deckhand engineer consult recommendations given diabetic diet (3) HTN (hypertension): Code(s): I10 - Essential (primary) hypertension Status: Acute Assessment and Plan: blood pressure 122/74 adjust medications as needed trend blood pressure (4) HLD (hyperlipidemia): Code(s): E78.5 - Hyperlipidemia, unspecified Status: Acute Assessment and Plan: diet controlled Cholesterol 127, HDL 21, LDL 77, triglycerides 86 all in normal range considering adding a statin drug (5) Sepsis: Qualifiers: Sepsis acute organ dysfunction status: without acute organ dysfunction Sepsis type: sepsis due to unspecified organism Qualified Code(s): A41.9 - Sepsis, unspecified organism Code(s): A41.9 - Sepsis, unspecified organism Status: Acute Assessment and Plan: Seems to be resolved at this time. inclusions in of sepsis noted by profound tachycardia up to 120, blood pressure dropped from 137/75 to 106/73, respiratory rate increased from 16-18, temperature remained stable at 36.4? C, white blood cell count is 8.8 source of infection is wound on right foot glucose 326 lactic acid red it to Zosyn and vancomycin started creatinine elevated 0.9 baseline seems to be at 0.6 trend labs and vital signs (6) Diabetic foot infection: Code(s): E11.628 - Type 2 diabetes mellitus with other skin complications; L08.9 - Local infection of the skin and subcutaneous tissue, unspecified Status: Acute Assessment and Plan: See above Time Spent With Patient Time with patient: Greater than 35 minutes Subjective Date/time seen: 01/13/21 10:57 Interval history: Patient is a 65-year-old male who is here for gangrene of the right 3rd toe. Patient is still unchanged from yesterday. He has no complaints and denies chest pain, shortness of breath, weakness, fatigue, pain, fevers, sweats, chills. Patient is also tolerating fluids and is without nausea vomiting. Was concerned about this patient being in an adult diaper. I also think that this patient should be getting up to chair and also keep working on moving. This patient also expressed that he would like that to be put on a short acting insulin upon discharge. Review of Systems Review of Systems: All systems reviewed & are unremarkable except as noted in HPI and below Exam Const: General: cooperative, healthy appearing, comfortable, no acute distress, well developed, alert, awake, Physically active, lethargic and tired appearing Nutritional Appearance: well nourished, thin and underweight Orientation/consciousness: oriented to person, oriented to place, oriented to time, patient oriented x3 and lethargic Limitations: physical limitations HENMT: Head: normal to inspection Ears: hearing grossly normal bilaterally General nose exam: Normal exte
[2021-01-13 11:19] LABS: Glucose Point of Care 171 mg/dl (65-105)
[2021-01-13] MEDS: SILVERGEL (ELTA) 45 ML 1 APPLIC TOPICAL (11:53)
[2021-01-13 14:00] VITALS: BP 120/69; PULSE 100; RESP 18; TEMP 36.7; O2SAT 95
[2021-01-13 16:31] LABS: Glucose Point of Care 198 mg/dl (65-105)
[2021-01-13] MEDS: INSULIN GLARGINE (*BKC) 100 UNITS/ML 20 UNITS SUB-Q (17:50)
[2021-01-13 22:00] VITALS: BP 111/70; PULSE 93; RESP 16; TEMP 36.6; O2SAT 96
[2021-01-14 06:00] VITALS: BP 130/68; PULSE 66; RESP 18; TEMP 36.4; O2SAT 100
[2021-01-14 06:41] LABS: Hematocrit 36.6 % (42.0-52.0); Hemoglobin 12.1 g/dL (14.0-18.0); Mean Corpuscular HGB Conc 33.1 g/dl (32-36); Mean Corpuscular Hemoglobin 29.3 pg (26-34); Mean Corpuscular Volume 88.6 fl (80-100); Mean Platelet Volume 9.9 fl (7.4-10.4); Platelet Count Result 269 k/mm3 (150-375); Red Blood Count 4.13 M/mm3 (4.6-6.20); Red Cell Distribution Width 13.2 % (11.5-14.5); White Blood Count 6.6 K/mm3 (4.5-10.0)
[2021-01-14 07:05] LABS: Alanine Aminotransferase 22 U/L (4-50); Albumin Level 3.8 g/dL (3.5-5.1); Alkaline Phosphatase 102 U/L (38-126); Anion Gap 10 mmol/L (8-16); Aspartate Amino Transferase 39 U/L (17-59); Bilirubin,Total 0.2 mg/dL (0.2-1.3); Blood Urea Nitrogen 15 mg/dL (9-20); Calcium 8.9 mg/dL (8.4-10.2); Carbon Dioxide 25 mmol/L (22-30); Chloride 98 mmol/L (98-107); Estimated CRCL calculation 71 ml/min; Estimated Glomerular Filt Rate > 60; Glucose 118 mg/dL (65-110); Magnesium 2.2 mg/dL (1.6-2.3); Potassium 4.1 mmol/L (3.4-5.0); Sodium 133 mmol/L (137-145)
[2021-01-14 08:00] VITALS: PULSE 66; RESP 18; O2SAT 100
[2021-01-14 08:14] LABS: Glucose Point of Care 116 mg/dl (65-105)
[2021-01-14] MEDS: INSULIN GLARGINE (*BKC) 100 UNITS/ML 20 UNITS SUB-Q ×2 (08:22→17:29)
[2021-01-14] MEDS: INSULIN ASPART (*BKC) 100 UNITS/ML SUB-Q ×2 (08:22→12:13)
[2021-01-14] MEDS: ENOXAPARIN 30 MG/0.3 ML SYRINGE SUB-Q ×2 (08:23→20:23)
[2021-01-14] MEDS: SILVERGEL (ELTA) 45 ML 1 APPLIC TOPICAL (08:34)
--- NOTE | 2021-01-14 09:51 | P.PNIM_ITS ---
Progress Note: A&P Assessment and Plan (1) Gangrene of toe of right foot: Code(s): I96 - Gangrene, not elsewhere classified Status: Acute Assessment and Plan: * wounds noted on the 2nd and 3rd toe * wound care consult- dressed according to instructions listed in chart * general surgery consulted thank you for your recommendations * Third toe amputated on 01/10/2021 * diabetes control with 15 units of Lantus BID and 5 units pre meal of NovoLog. * Zosyn 3.375 q.6 IV, Day 7 * blood cultures NGTD * PT/OT * weight bearing per surgery (2) Uncontrolled diabetes mellitus: Qualifiers: Glycemic state: with hyperglycemia Code(s): E11.65 - Type 2 diabetes mellitus with hyperglycemia Status: Acute Assessment and Plan: * patient states that his norm is to 300 to 400s * current glucose on labs 118 * Accu-Cheks AC and HS * increase Lantus to 20 units BID * increase to 7 units NovoLog before meals. * sliding scale insulin * A1C 11.9 * change management coordinator consult recommendations given * diabetic diet (3) HTN (hypertension): Code(s): I10 - Essential (primary) hypertension Status: Acute Assessment and Plan: * blood pressure 130/68 * adjust medications as needed * trend blood pressure (4) HLD (hyperlipidemia): Code(s): E78.5 - Hyperlipidemia, unspecified Status: Acute Assessment and Plan: * no further control needed * diet controlled * Cholesterol 127, HDL 21, LDL 77, triglycerides 86 all in normal range (5) Sepsis: Qualifiers: Sepsis acute organ dysfunction status: without acute organ dysfunction Sepsis type: sepsis due to unspecified organism Qualified Code(s): A41.9 - Sepsis, unspecified organism Code(s): A41.9 - Sepsis, unspecified organism Status: Acute Assessment and Plan: * Seems to be resolved at this time. * inclusions in of sepsis noted by profound tachycardia up to 120, blood pressure dropped from 137/75 to 106/73, respiratory rate increased from 16-18, temperature remained stable at 36.4? C, white blood cell count is 8.8 * source of infection is wound on right foot * glucose 326 * lactic acid 2.0 * Zosyn and vancomycin started * creatinine elevated 0.9 baseline seems to be at 0.6 * trend labs and vital signs (6) Diabetic foot infection: Code(s): E11.628 - Type 2 diabetes mellitus with other skin complications; L08.9 - Local infection of the skin and subcutaneous tissue, unspecified Status: Acute Assessment and Plan: * See above Subjective Date/time seen: 01/14/21 06:40 Interval history: Patient is an 65 year old here for gangrene that caused him to have the 3rd toe on the right foot amputated. He stated that he does not have any complaints today. He stated that he feels like he did yesterday. He also stated that he is just very bored. He is eating majority of each meal, and is tolerating PO intake. He denies pain. He did say that he was told that he could bear weight and that he needed to walk on his foot more. If he tolerates that he should be able to go home tomorrow. He denies chest pain, shortness of breath, nausea, vomiting, fevers, sweats, chills. Review of Systems Review of Systems: All systems reviewed & are unremarkable except as noted in HPI and below Exam Const: General: cooperative, healthy appearing, comfortable, no
--- NOTE | 2021-01-14 09:51 | PM.IMPN ---
Progress Note: A&P Assessment and Plan (1) Gangrene of toe of right foot: Code(s): I96 - Gangrene, not elsewhere classified Status: Acute Assessment and Plan: wounds noted on the 2nd and 3rd toe wound care consult- dressed according to instructions listed in chart general surgery consulted thank you for your recommendations Third toe amputated on 01/10/2021 diabetes control with 15 units of Lantus BID and 5 units pre meal of NovoLog. Zosyn 3.375 q.6 IV, Day 7 blood cultures NGTD PT/OT weight bearing per surgery (2) Uncontrolled diabetes mellitus: Qualifiers: Glycemic state: with hyperglycemia Code(s): E11.65 - Type 2 diabetes mellitus with hyperglycemia Status: Acute Assessment and Plan: patient states that his norm is to 300 to 400s current glucose on labs 118 Accu-Cheks AC and HS increase Lantus to 20 units BID increase to 7 units NovoLog before meals. sliding scale insulin A1C 11.9 primary special educator consult recommendations given diabetic diet (3) HTN (hypertension): Code(s): I10 - Essential (primary) hypertension Status: Acute Assessment and Plan: blood pressure 130/68 adjust medications as needed trend blood pressure (4) HLD (hyperlipidemia): Code(s): E78.5 - Hyperlipidemia, unspecified Status: Acute Assessment and Plan: no further control needed diet controlled Cholesterol 127, HDL 21, LDL 77, triglycerides 86 all in normal range (5) Sepsis: Qualifiers: Sepsis acute organ dysfunction status: without acute organ dysfunction Sepsis type: sepsis due to unspecified organism Qualified Code(s): A41.9 - Sepsis, unspecified organism Code(s): A41.9 - Sepsis, unspecified organism Status: Acute Assessment and Plan: Seems to be resolved at this time. inclusions in of sepsis noted by profound tachycardia up to 120, blood pressure dropped from 137/75 to 106/73, respiratory rate increased from 16-18, temperature remained stable at 36.4? C, white blood cell count is 8.8 source of infection is wound on right foot glucose 326 lactic acid 2.0 Zosyn and vancomycin started creatinine elevated 0.9 baseline seems to be at 0.6 trend labs and vital signs (6) Diabetic foot infection: Code(s): E11.628 - Type 2 diabetes mellitus with other skin complications; L08.9 - Local infection of the skin and subcutaneous tissue, unspecified Status: Acute Assessment and Plan: See above Subjective Date/time seen: 01/14/21 06:40 Interval history: Patient is an 65 year old here for gangrene that caused him to have the 3rd toe on the right foot amputated. He stated that he does not have any complaints today. He stated that he feels like he did yesterday. He also stated that he is just very bored. He is eating majority of each meal, and is tolerating PO intake. He denies pain. He did say that he was told that he could bear weight and that he needed to walk on his foot more. If he tolerates that he should be able to go home tomorrow. He denies chest pain, shortness of breath, nausea, vomiting, fevers, sweats, chills. Review of Systems Review of Systems: All systems reviewed & are unremarkable except as noted in HPI and below Exam Const: General: cooperative, healthy appearing, comfortable, no acute distress, well developed, alert, awake, Physically active and tired appearing Nutritional Appearance: well nourished, thin and underweight Orientation/consciousness: oriented to person, oriented to place, oriented to time and patient oriented x3 Limitations: physical limitations HENMT: Head: normal to inspection Ears: hearing grossly normal bilaterally General nose exam: Normal external nose present Mouth: Yes Normal oral and palatal mucosa present, Yes lip normal and Yes tongue normal Teeth and gingiva: ab
[2021-01-14 12:06] LABS: Glucose Point of Care 217 mg/dl (65-105)
[2021-01-14] MEDS: INSULIN ASPART (*BKC) 100 UNITS/ML 7 UNITS SUB-Q ×2 (12:14→17:28)
--- NOTE | 2021-01-14 12:51 | PM.PNGS ---
Progress Note: A&P Assessment and Plan (1) Gangrene of toe of right foot: Code(s): I96 - Gangrene, not elsewhere classified Status: Acute Assessment and Plan: Amputation right 3rd toe healing very nicely. Continue daily silver gel dressing changes. Okay for patient to ambulate with cast shoe and dressing on right foot, prosthetic on left leg. Okay to discharge tomorrow from my perspective if tolerates ambulation and amputation site continues to do well. (2) Diabetic foot infection: Code(s): E11.628 - Type 2 diabetes mellitus with other skin complications; L08.9 - Local infection of the skin and subcutaneous tissue, unspecified Status: Acute Assessment and Plan: Improved Subjective Subjective Date/Time Seen: 01/14/21 12:51 Post Op day: 4 Patient reports: no new complaints and pain is less Review of Systems Review of Systems: All systems reviewed & are unremarkable except as noted in HPI and below Constitutional: Constitutional: Denies chills, Denies fever(s) and Denies headache(s) Neurologic: Denies confusion and Denies headache(s) Exam Const: General: comfortable and no acute distress; No confusion Orientation/consciousness: patient oriented x3 and No confusion Neuro: General: patient oriented x3, no focal motor deficits and No confusion Extrem: Right lower extremity: foot ( Third toe amputation site clean and healing well.) Objective Data Vital Signs Vital Signs: Vital Signs - 24 hr 01/13/21 14:00 01/13/21 22:00 01/14/21 06:00 Temperature 36.7 C 36.6 C 36.4 C Pulse Rate 100 93 66 Respiratory Rate 18 16 18 Blood Pressure 120/69 111/70 130/68 Pulse Oximetry 95 96 100 01/14/21 08:00 Temperature Pulse Rate 66 Respiratory Rate 18 Blood Pressure Pulse Oximetry 100 Intake/Output Intake/Output: Intake & Output 01/11/21 01/12/21 01/13/21 01/14/21 23:59 23:59 23:59 23:59 Intake Total 1950 1180 1820 760 Output Total 1700 1050 1600 1300 Balance 250 130 220 -540 Meds/Results Medications: Active Medications Generic Name Dose Route Start Last Admin Trade Name Freq PRN Reason Stop Dose Admin Acetaminophen 650 mg 01/08/21 23:17 01/08/21 23:38 Acetaminophen 325 Mg Tablet PO 650 mg Q6H PRN Administration Mild Pain (1-3) or Fever Hydrocodone Bitart/Acetaminophen 1 tab 01/10/21 16:43 Hydrocodone/Acetaminophen (*Crx) 5-325 Mg Tablet PO Q4H PRN Pain Rated 4-6 Dextrose 12.5 gm 01/08/21 11:55 Dextrose 50% 25 Gm/50 Ml Syringe IV PUSH PRN PRN Hypoglycemia Protocol Enoxaparin Sodium 30 mg 01/10/21 21:00 01/14/21 08:23 Enoxaparin 30 Mg/0.3 Ml Syringe SUB-Q 30 mg Q12HR OMI Administration Glucagon 1 mg 01/08/21 11:55 Glucagon For Inj 1 Mg Vial IM PRN PRN Hypoglycemia Protocol Glucose 15 gm 01/08/21 11:55 Glucose Oral Gel 15 Gm Of Glucse In 37.5 Gm Tube PO PRN PRN Hypoglycemia Protocol Dextrose 1,000 mls @ 100 mls/hr 01/08/21 11:55 Dextrose 5% 1,000 Ml IVPB PRN PRN Hypoglycemia Protocol Piperacillin/Tazobactam/Dextrose 3.375 gm in 50 mls @ 100 mls/hr 01/08/21 12:00 01/14/21 12:12 Zosyn 3.375 Gm/D5w 50ml Pm IVPB 100 mls/hr Q6HR OMI Administration Insulin Aspart 4 - 8 units 01/08/21 12:00 01/14/21 12:13 Insulin Aspart (*Bkc) 100 Units/Ml SUB-Q 4 units TIDWM OMI Administration Protocol Insulin Aspart 7 units 01/14/21 12:00 01/14/21 12:14 Insulin Aspart (*Bkc) 100 Units/Ml SUB-Q 7 units TIDWM OMI Administration Insulin Glargine 20 units 01/13/21 17:00 01/14/21 08:22 Insulin Glargine (*Bkc) 100 Units/Ml SUB-Q 20 units BID OMI Administration Morphine Sulfate 2 mg 01/10/21 16:43 Morphine Sulfate (*Crx) 2 Mg/Ml Inj IV PUSH Q2H PRN Pain Rated 7-10 Silver Nitrate 1 applic 01/11/21 09:00 01/14/21 08:34 Silvergel (Elta) 45 Ml TOPICAL 1 applic DAILY [facility] Administra
[2021-01-14 14:00] VITALS: BP 128/65; PULSE 101; RESP 20; TEMP 36.7; O2SAT 97
--- NOTE | 2021-01-14 15:02 | PCOTNOTE ---
Attempted to see patient for OT, patient refused. Patient stated, I just got back into bed and I'm leaving tomorrow. Patient encouraged to participate with OT, patient continued to refuse. Will continue plan of care.
[2021-01-14 17:11] LABS: Glucose Point of Care 166 mg/dl (65-105)
[2021-01-14 20:00] VITALS: O2SAT 96
[2021-01-14 22:00] VITALS: BP 107/89; PULSE 92; RESP 18; TEMP 36.7; O2SAT 96
[2021-01-15 03:24] LABS: Glucose Point of Care 121 mg/dl (65-105)
[2021-01-15 06:00] VITALS: BP 126/79; PULSE 91; RESP 18; TEMP 36.6; O2SAT 96
[2021-01-15 06:59] LABS: Hematocrit 38.6 % (42.0-52.0); Hemoglobin 12.4 g/dL (14.0-18.0); Mean Corpuscular HGB Conc 32.1 g/dl (32-36); Mean Corpuscular Hemoglobin 28.6 pg (26-34); Mean Corpuscular Volume 88.9 fl (80-100); Mean Platelet Volume 9.6 fl (7.4-10.4); Platelet Count Result 307 k/mm3 (150-375); Red Blood Count 4.34 M/mm3 (4.6-6.20); Red Cell Distribution Width 13.1 % (11.5-14.5); White Blood Count 7.1 K/mm3 (4.5-10.0)
--- NOTE | 2021-01-15 07:05 | P.DS_ITS ---
DS: Admitting Diagnosis Admitting Diagnosis Gangrene of the right 3rd toe DS: Discharge Diagnosis Discharge Diagnosis (1) Gangrene of toe of right foot: Code(s): I96 - Gangrene, not elsewhere classified Status: Resolved Assessment and Plan: * wounds noted on the 2nd and 3rd toe * wound care consult- dressed according to instructions listed in chart * general surgery consulted thank you for your recommendations * Third toe amputated on 01/10/2021 * diabetes control with 15 units of Lantus BID and 5 units pre meal of NovoLog. * Zosyn 3.375 q.6 IV, Day 7 * blood cultures NGTD * PT/OT * weight bearing per surgery (2) Uncontrolled diabetes mellitus: Qualifiers: Glycemic state: with hyperglycemia Code(s): E11.65 - Type 2 diabetes mellitus with hyperglycemia Status: Acute Assessment and Plan: * patient states that his norm is to 300 to 400s * current glucose on labs 118 * Accu-Cheks AC and HS * increase Lantus to 20 units BID * increase to 7 units NovoLog before meals. * sliding scale insulin * A1C 11.9 * public health educator consult recommendations given * diabetic diet (3) HTN (hypertension): Code(s): I10 - Essential (primary) hypertension Status: Acute Assessment and Plan: * blood pressure 130/68 * adjust medications as needed * trend blood pressure (4) HLD (hyperlipidemia): Code(s): E78.5 - Hyperlipidemia, unspecified Status: Acute Assessment and Plan: * no further control needed * diet controlled * Cholesterol 127, HDL 21, LDL 77, triglycerides 86 all in normal range (5) Sepsis: Qualifiers: Sepsis acute organ dysfunction status: without acute organ dysfunction Sepsis type: sepsis due to unspecified organism Qualified Code(s): A41.9 - Sepsis, unspecified organism Code(s): A41.9 - Sepsis, unspecified organism Status: Acute Assessment and Plan: * Seems to be resolved at this time. * inclusions in of sepsis noted by profound tachycardia up to 120, blood pressure dropped from 137/75 to 106/73, respiratory rate increased from 16-18, temperature remained stable at 36.4? C, white blood cell count is 8.8 * source of infection is wound on right foot * glucose 326 * lactic acid 2.0 * Zosyn and vancomycin started * creatinine elevated 0.9 baseline seems to be at 0.6 * trend labs and vital signs (6) Diabetic foot infection: Code(s): E11.628 - Type 2 diabetes mellitus with other skin complications; L08.9 - Local infection of the skin and subcutaneous tissue, unspecified Status: Acute Assessment and Plan: * See above DS: Summary Hospital Course Reason for hospitalization: Date of service: 01/15/21 08:00 Hospital Course: Penny is a 65 year old male here for right 2nd and 3rd toe infection. Wound care was consulted and gave suggestions to wound care and medication therapy. Surgery was also consulted, and determined that the 3rd toe needed to be amputated. On 01/09/21 patient was taken to surgery for right 3 toe amputation. IV Zosyn was given since admission. Blood cultures show NGTD. Weight bearing status has been pivot only for several days to give the wound proper healing time. PT/OT has been working with patient for transfers and mobility. Yesterday patient was given full weight bearing abilities, and was able to move around the room and to the chair independently. Labs have been s
--- NOTE | 2021-01-15 07:05 | PM.DS ---
DS: Admitting Diagnosis Admitting Diagnosis Gangrene of the right 3rd toe DS: Discharge Diagnosis Discharge Diagnosis (1) Gangrene of toe of right foot: Code(s): I96 - Gangrene, not elsewhere classified Status: Resolved Assessment and Plan: wounds noted on the 2nd and 3rd toe wound care consult- dressed according to instructions listed in chart general surgery consulted thank you for your recommendations Third toe amputated on 01/10/2021 diabetes control with 15 units of Lantus BID and 5 units pre meal of NovoLog. Zosyn 3.375 q.6 IV, Day 7 blood cultures NGTD PT/OT weight bearing per surgery (2) Uncontrolled diabetes mellitus: Qualifiers: Glycemic state: with hyperglycemia Code(s): E11.65 - Type 2 diabetes mellitus with hyperglycemia Status: Acute Assessment and Plan: patient states that his norm is to 300 to 400s current glucose on labs 118 Accu-Cheks AC and HS increase Lantus to 20 units BID increase to 7 units NovoLog before meals. sliding scale insulin A1C 11.9 life skills educator consult recommendations given diabetic diet (3) HTN (hypertension): Code(s): I10 - Essential (primary) hypertension Status: Acute Assessment and Plan: blood pressure 130/68 adjust medications as needed trend blood pressure (4) HLD (hyperlipidemia): Code(s): E78.5 - Hyperlipidemia, unspecified Status: Acute Assessment and Plan: no further control needed diet controlled Cholesterol 127, HDL 21, LDL 77, triglycerides 86 all in normal range (5) Sepsis: Qualifiers: Sepsis acute organ dysfunction status: without acute organ dysfunction Sepsis type: sepsis due to unspecified organism Qualified Code(s): A41.9 - Sepsis, unspecified organism Code(s): A41.9 - Sepsis, unspecified organism Status: Acute Assessment and Plan: Seems to be resolved at this time. inclusions in of sepsis noted by profound tachycardia up to 120, blood pressure dropped from 137/75 to 106/73, respiratory rate increased from 16-18, temperature remained stable at 36.4? C, white blood cell count is 8.8 source of infection is wound on right foot glucose 326 lactic acid 2.0 Zosyn and vancomycin started creatinine elevated 0.9 baseline seems to be at 0.6 trend labs and vital signs (6) Diabetic foot infection: Code(s): E11.628 - Type 2 diabetes mellitus with other skin complications; L08.9 - Local infection of the skin and subcutaneous tissue, unspecified Status: Acute Assessment and Plan: See above DS: Summary Hospital Course Reason for hospitalization: Date of service: 01/15/21 08:00 Hospital Course: Penny is a 65 year old male here for right 2nd and 3rd toe infection. Wound care was consulted and gave suggestions to wound care and medication therapy. Surgery was also consulted, and determined that the 3rd toe needed to be amputated. On 01/09/21 patient was taken to surgery for right 3 toe amputation. IV Zosyn was given since admission. Blood cultures show NGTD. Weight bearing status has been pivot only for several days to give the wound proper healing time. PT/OT has been working with patient for transfers and mobility. Yesterday patient was given full weight bearing abilities, and was able to move around the room and to the chair independently. Labs have been stable through admission. Upon arrival patient was noted to have sepsis with noted tachycardia, mild hypotension, and a noted source of infection. It is also noted that the patient has chronic hyperglycemia. It has also been noted that the patient has had profound hyperglycemia with reported glucose being in the 300-400s at home. Here glucose has been labile. Insulin adjustments have been made including Lantus increased to 20u BID and Novolog 7units with meals. Patient has express
[2021-01-15 07:18] LABS: Alanine Aminotransferase 25 U/L (4-50); Albumin Level 3.9 g/dL (3.5-5.1); Alkaline Phosphatase 106 U/L (38-126); Anion Gap 8 mmol/L (8-16); Aspartate Amino Transferase 46 U/L (17-59); Bilirubin,Total 0.3 mg/dL (0.2-1.3); Blood Urea Nitrogen 13 mg/dL (9-20); Calcium 9.1 mg/dL (8.4-10.2); Carbon Dioxide 27 mmol/L (22-30); Chloride 99 mmol/L (98-107); Estimated CRCL calculation 71 ml/min; Estimated Glomerular Filt Rate > 60; Glucose 116 mg/dL (65-110); Potassium 4.1 mmol/L (3.4-5.0); Sodium 134 mmol/L (137-145)
[2021-01-15 08:25] LABS: Glucose Point of Care 165 mg/dl (65-105)
[2021-01-15] MEDS: INSULIN ASPART (*BKC) 100 UNITS/ML 7 UNITS SUB-Q (09:06)
[2021-01-15] MEDS: INSULIN GLARGINE (*BKC) 100 UNITS/ML 20 UNITS SUB-Q (09:07)
[2021-01-15] MEDS: ENOXAPARIN 30 MG/0.3 ML SYRINGE SUB-Q (09:07)
--- NOTE | 2021-01-15 09:53 | PM.PNGS ---
Progress Note: A&P Assessment and Plan (1) Gangrene of toe of right foot: Code(s): I96 - Gangrene, not elsewhere classified Status: Resolved Assessment and Plan: Amputation site healing well. Okay to discharge from surgical standpoint. Continue silver gel dressings and wash right foot daily with soap and water including the amputation site. I will see him in the office in 2 weeks. (2) Diabetic foot infection: Code(s): E11.628 - Type 2 diabetes mellitus with other skin complications; L08.9 - Local infection of the skin and subcutaneous tissue, unspecified Status: Acute Assessment and Plan: Additional antibiotic therapy per hospitalist discretion. Subjective Subjective Date/Time Seen: 01/15/21 09:53 Post Op day: 5 Patient reports: no new complaints Interval history: Able to bear weight on right foot with prosthesis on left leg yesterday. Exam Extrem: Right lower extremity: foot ( Third toe amputation site clean and healing well.) Objective Data Vital Signs Vital Signs: Vital Signs - 24 hr 01/14/21 14:00 01/14/21 20:00 01/14/21 22:00 Temperature 36.7 C 36.7 C Pulse Rate 101 H 92 Respiratory Rate 20 18 Blood Pressure 128/65 107/89 Pulse Oximetry 97 96 96 01/15/21 06:00 Temperature 36.6 C Pulse Rate 91 Respiratory Rate 18 Blood Pressure 126/79 Pulse Oximetry 96 Intake/Output Intake/Output: Intake & Output 01/12/21 01/13/21 01/14/21 01/15/21 23:59 23:59 23:59 23:59 Intake Total 1180 1820 1590 340 Output Total 1050 1600 1900 400 Balance 130 220 -310 -60 Meds/Results Medications: Active Medications Generic Name Dose Route Start Last Admin Trade Name Freq PRN Reason Stop Dose Admin Acetaminophen 650 mg 01/08/21 23:17 01/08/21 23:38 Acetaminophen 325 Mg Tablet PO 650 mg Q6H PRN Administration Mild Pain (1-3) or Fever Hydrocodone Bitart/Acetaminophen 1 tab 01/10/21 16:43 Hydrocodone/Acetaminophen (*Crx) 5-325 Mg Tablet PO Q4H PRN Pain Rated 4-6 Dextrose 12.5 gm 01/08/21 11:55 Dextrose 50% 25 Gm/50 Ml Syringe IV PUSH PRN PRN Hypoglycemia Protocol Enoxaparin Sodium 30 mg 01/10/21 21:00 01/15/21 09:07 Enoxaparin 30 Mg/0.3 Ml Syringe SUB-Q 30 mg Q12HR OMI Administration Glucagon 1 mg 01/08/21 11:55 Glucagon For Inj 1 Mg Vial IM PRN PRN Hypoglycemia Protocol Glucose 15 gm 01/08/21 11:55 Glucose Oral Gel 15 Gm Of Glucse In 37.5 Gm Tube PO PRN PRN Hypoglycemia Protocol Dextrose 1,000 mls @ 100 mls/hr 01/08/21 11:55 Dextrose 5% 1,000 Ml IVPB PRN PRN Hypoglycemia Protocol Piperacillin/Tazobactam/Dextrose 3.375 gm in 50 mls @ 100 mls/hr 01/08/21 12:00 01/15/21 06:25 Zosyn 3.375 Gm/D5w 50ml Pm IVPB Infused Q6HR OMI Infusion Insulin Aspart 4 - 8 units 01/08/21 12:00 01/15/21 09:05 Insulin Aspart (*Bkc) 100 Units/Ml SUB-Q Not Given TIDWM [facility] Protocol Insulin Aspart 7 units 01/14/21 12:00 01/15/21 09:06 Insulin Aspart (*Bkc) 100 Units/Ml SUB-Q 7 units TIDWM OMI Administration Insulin Glargine 20 units 01/13/21 17:00 01/15/21 09:07 Insulin Glargine (*Bkc) 100 Units/Ml SUB-Q 20 units BID OMI Administration Morphine Sulfate 2 mg 01/10/21 16:43 Morphine Sulfate (*Crx) 2 Mg/Ml Inj IV PUSH Q2H PRN Pain Rated 7-10 Silver Nitrate 1 applic 01/11/21 09:00 01/14/21 08:34 Silvergel (Elta) 45 Ml TOPICAL 1 applic DAILY OMI Administration Radiology Results: ITS Impressions Foot X-Ray 01/07/21 18:22 IMPRESSION: Minimal plantar and posterior calcaneal enthesopathy 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
[2021-01-15] MEDS: SILVERGEL (ELTA) 45 ML 1 APPLIC TOPICAL (10:44)
--- NOTE | 2021-01-15 11:14 | PCOTNOTE ---
Pt. refused OT this date stated I am waiting on my phone call that my ride is here. No thanks, I'm all set to go home. PT. encouraged and educated on benefits of OT. Pt. continued to decline.
== END 2021-01-15 11:35 | disposition home health service (06) | DRG 710 ==
LOC: ANHED 23:01 → ANH3MEDSUR 01-08 03:11
PROVIDERS: Surgery; Admitting Provider Internal Medicine; Emergency Provider Emergency Medicine; PCP Internal Medicine Infectious Disease; Visit Provider Nurse Practitioner
PROC: 0Y6T0Z1 Detachment at Right 3rd Toe, High, Open Approach (ICD-10-PCS; principal; 2021-01-10 16:30)
DX: A41.9 Sepsis, unspecified organism (principal); E11.52 Type 2 diabetes mellitus with diabetic peripheral angiopathy with gangrene; I96 Gangrene, not elsewhere classified; E11.628 Type 2 diabetes mellitus with other skin complications; L08.9 Local infection of the skin and subcutaneous tissue, unspecified; E11.319 Type 2 diabetes mellitus with unspecified diabetic retinopathy without macular edema; E11.65 Type 2 diabetes mellitus with hyperglycemia; I10 Essential (primary) hypertension; E78.5 Hyperlipidemia, unspecified; F17.210 Nicotine dependence, cigarettes, uncomplicated; Z66 Do not resuscitate; Z79.4 Long term (current) use of insulin; Z86.19 Personal history of other infectious and parasitic diseases; Z89.512 Acquired absence of left leg below knee
CPT/HCPCS: 36415; 73630; 80053; 80061; 80202; 82948; 83036; 83605; 83735; 85025; 85027; 85652; 86140; 87040; 88305; 88311; 93005; 96365; 96366; 96367; 97110; 97116; 97161; 97165; 97530; 99285; A9270; G0378; G0379; J0690; J1650; J1815; J2250; J2543; J2704; J3010; J3370; J3475; J7120

== ENCOUNTER 2022-09-13 16:49 | Emergency (ER) | payer MEDICARE, MEDICAID, SELFPAY ==
[2022-09-13] VITALS (7 sets, daily range): BP systolic 136–149; BP diastolic 82–94; PULSE 105–114; RESP 15–18; TEMP 36.7; O2SAT 96–100
--- NOTE | ~2022-09-13 | XR_ITS ---
EXAMINATION: XR tibia fibula LT 2V DATE: 09/13/2022 17:33 INDICATION: Left iagbj-rro-jssn amputation with wound to the proximal area of the tibia and fibula fr om wearing a prosthetic device TECHNIQUE: Anteroposterior and oblique and lateral views of the left tibia and fibula were obtained. COMPARISON: None. FINDINGS: Left ohvnc-ani-lusc amputation with smooth corticated margins to the proximal tibial and fibular oste otomies. No cortical erosions or periosteal reaction to suggest osteomyelitis. Joint spaces in the le ft knee. Normal. No left knee joint effusion. Small enthesophyte at the proximal pole of the patella. There appears be some skin thickening along the distal margin of the stump. No radiopaque foreign nancy dies or soft tissue gas. IMPRESSION: 1. Status post left iwoej-qbu-swcm amputation with no acute osseous abnormality. Reviewed, dictated and finalized at location A. IMPRESSION: 1. Status post left nmhmr-lcq-grft amputation with no acute osseous abnormality .
[2022-09-13 17:43] LABS: Basophils Percent Auto 0.6 % (0.2-1.2); Eosinophils Absolute Auto 0.2 K/mm3 (0-0.3); Eosinophils Percent Auto 3.4 % (0-4.4); Hemoglobin 12.6 g/dL (14.0-18.0); Immature Granulocyte Absolute 0.01 K/mm3 (0.00-0.031); Immature Granulocyte Percent A 0.2 % (0-0.5); Lymphocytes Absolute Auto 1.41 K/mm3 (0.9-3.2); Lymphocytes Percent Auto 29.8 % (18.3-44.2); Mean Corpuscular Hemoglobin 30.1 pg (26-34); Mean Corpuscular Volume 85.9 fl (80-100); Mean Platelet Volume 10.2 fl (7.4-10.4); Monocytes Absolute Auto 0.5 K/mm3 (0.1-0.6); Neutrophils Absolute Auto 2.6 K/mm3 (1.3-6.7); Platelet Count Result 190 k/mm3 (150-375); Red Blood Count 4.19 M/mm3 (4.6-6.20); White Blood Count 4.7 K/mm3 (4.5-10.0)
[2022-09-13 18:05] LABS: Alanine Aminotransferase 32 U/L (6-50); Albumin Level 4.2 g/dL (3.5-5.1); Alkaline Phosphatase 132 U/L (38-126); Anion Gap 9 mmol/L (8-16); Aspartate Amino Transferase 30 U/L (17-59); Bilirubin,Total 0.4 mg/dL (0.2-1.3); Blood Urea Nitrogen 25 mg/dL (9-20); Calcium 9.3 mg/dL (8.4-10.2); Carbon Dioxide 26 mmol/L (22-30); Chloride 97 mmol/L (98-107); Estimated CRCL calculation 89 ml/min; Estimated Glomerular Filt Rate > 60; Glucose 342 mg/dL (65-110); Potassium 4.3 mmol/L (3.4-5.0); Sodium 132 mmol/L (137-145)
[2022-09-13] MEDS: SODIUM CHLORIDE 0.9% IV 1,000 ML 999 ML IV CONT (18:48)
--- NOTE | 2022-09-13 18:59 | ED.EXTPRO ---
HPI - Extremity Problem General Chief complaint: Extremity Problem,Nontraumatic Stated complaint: extemity problem Time Seen by Provider: 09/13/22 17:03 Source: patient and RN notes reviewed Mode of arrival: ambulatory Limitations: no limitations History of Present Illness HPI Narrative: This is a 67 year old male with history of DM who presents for evaluation of left stump wound. Patient has noticed 2 small wounds to his left stump for 1 week. He has been treating his wounds with antibiotic ointment. He reports mild pain to left lateral leg. He denies fever, chills, nausea, vomiting or purulent drainage. He states he is here to prevent worsening infection. He states he has not seen doctor in 1 year. He states his suppose to be on insulin. He states he has insurance for his medication but he has not gotten prescriptions. He also reports having resources for bandage changes. Related Data Allergies Allergy/AdvReac Type Severity Reaction Status Date / Time No Known Allergies Allergy Mild Verified 09/13/22 16:56 Review of Systems Constitutional: Constitutional: Denies weakness Cardiovascular: Cardiovascular: Denies syncope, Denies rapid heart rate, Denies irregular heart rhythm, Denies leg edema and Denies dyspnea Respiratory: Respiratory: Denies chest congestion, Denies hemoptysis, Denies excessive phlegm production and Denies dyspnea Gastrointestinal: Gastrointestinal: Denies abdominal pain, Denies hematochezia, Denies diarrhea and Denies vomiting Genitourinary: Genitourinary: Denies hematuria, Denies dysuria, Denies penile discharge and Denies testicular pain Musculoskeletal: Musculoskeletal: Denies joint swelling, Denies loss of height and Denies muscle weakness Integumentary/Breasts: Skin/Breast: Reports skin ulcer Neurologic: Denies syncope, Denies focal weakness and Denies weakness PMFSH Past Medical History Medical History Anxiety Atrial fibrillation Below-knee amputation of left lower extremity Depression Diabetes Diabetic retinopathy Hepatitis C HLD (hyperlipidemia) HTN (hypertension) Surgical History Surgical History Hx of appendectomy Hx of tonsillectomy Family History Family History Father Family history of diabetes mellitus in first degree relative Family history of coronary artery disease Son Family history of coronary artery disease Mother Family history of coronary artery disease Social History Social History Social History: 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 Patient stated that his son Ky will be her surrogate if anything were to happen. Patient also wishes to be DNR at this time. Smoking packs per day: 1 Smoking cigarettes per day: 20.0 Years smoked: 50 Smoking pack-years: 50.00 Smoking status: Current every day smoker Tobacco type: cigarettes Second hand tobacco smoke exposure: Yes Alcohol intake: never Substance use: current Substance use type: marijuana and methamphetamine Other substance usage details: Uses a couple times a week Living arrangements: with family Additional living arrangements comments: living conditions presently erratic was living with son but moved in with friend which is not working out Occupation/Education: retired Additional occupation/education comments: [employer] Gender identity (if verbalized by the patient): Male Sexual Orientation (if Verbalized by the Patient): Straight or Heterosexual Spiritual care concerns: No Agree to blood products: Yes Exam Const: General: alert Orientation/consciousness: patient oriented x3 Limitations: no limitations HENMT: Head: normal to inspection Mouth: Yes Normal oral and palatal mucosa present, Yes lip no
[2022-09-13] MEDS: SILVER SULFADIAZINE 1% CR 400 GM JAR (*BKC) 1 APPLIC TOPICAL (19:16)
--- NOTE | 2022-09-13 19:39 | PC.NURSE ---
Pt stating that he would like to leave at this time. Dr. Garcia made aware at this time. She will be discharging pt at this time.
== END 2022-09-13 19:56 | disposition home or self-care (01) ==
PROVIDERS: Emergency Provider General Practice
DX: E11.622 Type 2 diabetes mellitus with other skin ulcer (principal); L98.499 Non-pressure chronic ulcer of skin of other sites with unspecified severity; E11.65 Type 2 diabetes mellitus with hyperglycemia; T38.3X6A Underdosing of insulin and oral hypoglycemic [antidiabetic] drugs, initial encounter; Z91.128 Patient's intentional underdosing of medication regimen for other reason; I48.91 Unspecified atrial fibrillation; E11.319 Type 2 diabetes mellitus with unspecified diabetic retinopathy without macular edema; E78.5 Hyperlipidemia, unspecified; I10 Essential (primary) hypertension; F17.210 Nicotine dependence, cigarettes, uncomplicated; Z89.512 Acquired absence of left leg below knee; Z86.19 Personal history of other infectious and parasitic diseases; Z66 Do not resuscitate
CPT/HCPCS: 36415; 73590; 80053; 85025; 96360; 99283; J7030

== ENCOUNTER 2022-10-09 13:51 | Inpatient (IN) | payer MEDICARE, MEDICAID, SELFPAY ==
[2022-10-09] VITALS (14 sets, daily range): BP systolic 129–166; BP diastolic 72–93; PULSE 91–105; RESP 16–20; TEMP 36.6–36.7; O2SAT 96–100
--- NOTE | ~2022-10-09 | MR_ITS ---
MRI of the right midfoot CLINICAL HISTORY: Ulcer, osteomyelitis TECHNIQUE: Axial T1-weighted, T1 fat-sat, sagittal T1-weighted and STIR images, and coronal T1-weight ed images were acquired. Following intravenous administration of 15 cc MultiHance gadolinium, T1-weig hted fat-sat imaging was performed in the axial, coronal, and sagittal planes. FINDINGS: Patient is status post prior amputation of the third toe, with a very small remnant of the base of the third proximal phalanx present. There is hypointense T1 signal this very small third prox imal phalangeal remnant, otherwise, the remaining visualized bone marrow signals are unremarkable. Th ere scattered mild degenerative joint disease throughout the visualized foot. No joint effusion evide nt. Embolus tendons are grossly intact. There is mild diffuse edema of the plantar muscle tear of the ju t. There is mild subcutaneous soft tissue edema over the dorsal aspect of the foot. There is a bliste r and/or small ulcer at the lateral foot at the region of the base of fifth metatarsal. No abscess ev ident. IMPRESSION: Hypointense T1 marrow signal in the very small third proximal phalangeal remnant. This could reflect residual osteomyelitis of this bone versus postoperative marrow signal changes. No other evidence for osteomyelitis in the remaining visualized osseous structures. Scattered mild degenerative changes in the visualized foot. Small posterior/ulcer at the region of the base of the fifth metatarsal superficially. Nonspecific subcutaneous soft tissue edema and edema of the intrinsic musculature of the foot. Reviewed, dictated and finalized at [facility]. IMPRESSION: Hypointense T1 marrow signal in the very small third proximal phalangeal remnan t. This could reflect residual osteomyelitis of this bone versus postoperative marrow signal changes. No other evidence for osteomyelitis in the remaining visualized osseous structu res. Scattered mild degenerative changes in the visualized foot. Small posterior/ulcer at the region of the base of the fifth metatarsal superfi cially. Nonspecific subcutaneous soft tissue edema and edema of the intrinsic musculatu re of the foot.
--- NOTE | ~2022-10-09 | XR_ITS ---
XR foot RT min 3V 10/09/2022 15:10 Indication: Foot wound. Diabetes. Procedure: 4 views right foot Comparison: No prior studies for comparison. Findings: Status post amputation of the third digit at the proximal phalanx. No fracture, subluxation or dislocation. Lisfranc joint intact. There is mild soft tissue swelling of the foot. No foreign nancy dies. Impression: 1: Status post amputation of the right third digit at the proximal phalanx. There is concern for oste omyelitis, consider correlation with MRI. Reviewed, dictated and finalized at location [facility]. Impression: 1: Status post amputation of the right third digit at the proximal phalanx. The re is concern for osteomyelitis, consider correlation with MRI.
--- NOTE | 2022-10-09 14:38 | ED.GENADULT ---
HPI - General Adult General Chief complaint: Extremity Problem,Nontraumatic Stated complaint: right foot ulcer Time Seen by Provider: 10/09/22 14:25 History of Present Illness HPI narrative: 67-year-old male with past medical history of A-fib, depression, diabetes, hep C, hyperlipidemia, hypertension, left BKA and right toe amputation presented to the ED for evaluation of worsening ulcerated wounds on his left stump and on his right lateral foot. Patient states that the wounds on the stump have been worsening due to them rubbing against his prosthesis. Patient is unsure how long the wound on the right lateral foot has been progressing. Related Data Allergies Allergy/AdvReac Type Severity Reaction Status Date / Time No Known Allergies Allergy Mild Verified 10/09/22 13:52 Review of Systems Review of Systems: All systems reviewed & are unremarkable except as noted in HPI and below PMFSH Past Medical History Medical History (Updated 10/09/22 @ 19:02 by Hua Franklin MD) Anxiety Depression Diabetic retinopathy Gastroesophageal reflux disease Hepatitis C Hyperlipidemia Hypertension Insulin dependent diabetes mellitus Paroxysmal atrial fibrillation Prostate cancer Status post radiation. Tuberculosis (2014) Surgical History Surgical History (Updated 10/09/22 @ 16:49 by Kezia Jones PA-C) History of appendectomy History of left below knee amputation History of tonsillectomy Family History Family History (Updated 10/09/22 @ 16:51 by Kezia Jones PA-C) Father Diabetes mellitus Son Heart disease Mother Heart disease Sibling Cerebral aneurysm Social History Social History (Updated 10/09/22 @ 16:59 by Kezia Jones PA-C) Social History: Surrogate medical decision maker: Ky Helms, erica. Code status: Full code. Smoking packs per day: 1 Smoking cigarettes per day: 20.0 Years smoked: 50 Smoking pack-years: 50.00 Smoking status: Current every day smoker Tobacco type: cigarettes Second hand tobacco smoke exposure: Yes Alcohol intake: never Substance use: current Substance use type: marijuana, crack/cocaine and methamphetamine Other substance usage details: Uses a couple times a week. Living arrangements: with family Occupation/Education: retired Additional occupation/education comments: [employer]. Spiritual care concerns: No Agree to blood products: Yes Exam Narrative: APPEARANCE: Well appearing, no pain, no distress, well-nourished. HEAD: normocephalic, atraumatic. EYES: PERRLA/EOMI, conjunctivae clear. NECK: Supple. No adenopathy, no masses. RESPIRATORY: Airway patent, respirations nonlabored. Clear to auscultation bilaterally, no rales, rhonchi, wheezing. CARDIOVASCULAR: Regular rate and rhythm without murmurs rubs or gallops. ABDOMINAL: Soft, nontender, nondistended, normal bowel sounds MUSCULOSKELETAL: Ulcer on the left lateral left stump and inferior aspect of the left stump, pale ulcer with surrounding erythema on the right lateral right foot. NEURO: Alert. Cranial nerves II through XII intact. Grossly intact SKIN: Warm, dry. Normal Color PSYCHIATRIC: Normal affect/mood. Course Course Emergency Course: 67-year-old male presented to the ED for evaluation of worsening ulcerated wounds on his left stump and right foot. Patient is afebrile and has no leukocytosis. Patient's electrolytes are similar to his baseline and patient does have an elevated glucose. Patient was treated with IV fluids in the emergency department. X-ray did show concern for osteomyelitis. Case was discussed with the hospitalist the patient was accepted for admission. Prior to admission patient was started on Vanco and Zosyn in the emergency department. Patient has previously seen Dr. Lozada for surgical amputation of toes on the right foot and a surgical consultation was placed for evaluation of the wound on the lateral right foot. Patient was updated on the pl
[2022-10-09 14:46] LABS: Basophils Percent Auto 0.4 % (0.2-1.2); Eosinophils Absolute Auto 0.1 K/mm3 (0-0.3); Eosinophils Percent Auto 1.7 % (0-4.4); Hematocrit 35.1 % (42.0-52.0); Hemoglobin 11.8 g/dL (14.0-18.0); Immature Granulocyte Absolute 0.02 K/mm3 (0.00-0.031); Immature Granulocyte Percent A 0.4 % (0-0.5); Lymphocytes Absolute Auto 1.14 K/mm3 (0.9-3.2); Lymphocytes Percent Auto 24.8 % (18.3-44.2); Mean Corpuscular HGB Conc 33.6 g/dl (32-36); Mean Corpuscular Hemoglobin 28.7 pg (26-34); Mean Corpuscular Volume 85.4 fl (80-100); Monocytes Absolute Auto 0.5 K/mm3 (0.1-0.6); Monocytes Percent Auto 11.5 % (2.6-8.5); Neutrophils Absolute Auto 2.8 K/mm3 (1.3-6.7); Neutrophils Percent Auto 61.2 % (45.5-73.1); Platelet Count Result 193 k/mm3 (150-375); Red Blood Count 4.11 M/mm3 (4.6-6.20); Red Cell Distribution Width 12.2 % (11.5-14.5); White Blood Count 4.6 K/mm3 (4.5-10.0)
[2022-10-09 14:55] LABS: Alanine Aminotransferase 30 U/L (6-50); Albumin Level 3.7 g/dL (3.5-5.1); Alkaline Phosphatase 129 U/L (38-126); Anion Gap 8 mmol/L (8-16); Aspartate Amino Transferase 29 U/L (17-59); Bilirubin,Total 0.4 mg/dL (0.2-1.3); Blood Urea Nitrogen 25 mg/dL (9-20); Calcium 8.5 mg/dL (8.4-10.2); Carbon Dioxide 30 mmol/L (22-30); Chloride 95 mmol/L (98-107); Estimated CRCL calculation 101 ml/min; Estimated Glomerular Filt Rate > 60; Glucose 412 mg/dL (65-110); Potassium 4.1 mmol/L (3.4-5.0); Sodium 133 mmol/L (137-145)
[2022-10-09] MEDS: PIPERACILLN/TAZ 3.375GM/NS50ML 3.375 GM/50 ML BAG IVPB (15:24)
--- NOTE | 2022-10-09 16:45 | PM.IMHP ---
H&P: HPI History of Present Illness Date/Time: 10/09/22 16:45 Chief Complaint: Right foot ulcer. Narrative: This is a 67-year-old male smoker with history of left bilateral knee amputation, insulin-dependent diabetes, paroxysmal atrial fibrillation, hypertension, hyperlipidemia, hepatitis C, prostate cancer status post radiation, and history of drug abuse who presented to the emergency department for evaluation of right foot ulcer. About a week ago he noticed redness and swelling on the lateral side of his right foot and within the last couple of days he noticed malodorous drainage on his socks. He was unaware of a callused ulcer on the bottom of that foot due to lack of sensation from neuropathy and he was just alerted to that wound today. He also reports a couple of smaller ulcers on his left stump which he believes is due to an ill-fitting prosthesis. He otherwise feels okay and denies systemic symptoms. Specifically he denies fever, chills, sweats, nausea, and vomiting. No known history of multidrug resistant organisms. In the ED he was afebrile, white blood cell count is normal, and random glucose was 412. Foot x-ray showed findings concerning for osteomyelitis. He has been started on broad-spectrum antibiotics and is being admitted in this setting for further treatment. Review of Systems Review of Systems: Twelve systems were reviewed. No fever, chills, or sweats. He denies recent cold and flu symptoms. No chest pain shortness a breath. No nausea, vomiting, or diarrhea. No dysuria. He admits that he does not really check his glucose much at home. He denies blurry vision, polydipsia, and polyuria. Except as documented, all other systems were reviewed and are negative. [facility] Past Medical History Medical History (Updated 10/09/22 @ 22:27 by Kezia Jones PA-C) Anxiety Depression Diabetic retinopathy Gastroesophageal reflux disease Hepatitis C Hyperlipidemia Hypertension Insulin dependent diabetes mellitus Paroxysmal atrial fibrillation Polysubstance abuse Prostate cancer Status post radiation. Tobacco dependence Tuberculosis (2015) Surgical History Surgical History (Updated 10/09/22 @ 16:49 by Kezia Jones PA-C) History of appendectomy History of left below knee amputation History of tonsillectomy Family History Family History Father Diabetes mellitus Son Heart disease Mother Heart disease Sibling Cerebral aneurysm Social History Social History (Updated 10/09/22 @ 22:27 by Kezia Jones PA-C) Social History: Surrogate medical decision maker: Luma Blank, daughter. Code status: Full code. Smoking packs per day: 0.5 Smoking cigarettes per day: 10.0 Years smoked: 50 Smoking pack-years: 25.00 Smoking status: Current every day smoker Tobacco type: cigarettes Second hand tobacco smoke exposure: Yes Alcohol intake: never Substance use: current Substance use type: marijuana and methamphetamine Lack of Transportation: YES Lack of Food: Sometimes True Current Housing: I Do Not Have Housing Concerned About Future Housing: YES Difficulty Paying Gas/Electric Bills: YES Difficulty Paying for Meds: No Currently Unemployed: No Education: Grade School Difficulty w/ Childcare or Family Care: No Living arrangements: with friend(s) Additional living arrangements comments: Currently staying with a friend. 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 Spiritual care concerns: No Agree to blood products: Yes Meds Home Medications and Allergies Home Medications Medication Instructions Recorded Confirmed Type silver 200 mcg/gram topical gel 1 applic topical DAILY #90 grams 01/15/21 10/09/22 Rx (Silver-Sept) insulin lispro 100 unit/mL 7 unit subcut BIDWMEAL 10/09/22 10/09/22 History subcutaneous pen (Humalog KwikPen (U-100) Insulin)
[2022-10-09] MEDS: SODIUM CHLORIDE 0.9% IV 1,000 ML 999 ML IV CONT (17:22)
--- NOTE | 2022-10-09 19:45 | ADMGEN ---
This patient, Humberto Helms, was admitted to Medical Room 349-01. Patient/family oriented to hospital policies and general routines including ID bracelet, bed and alarms, visiting hours, pain management, procedures, bathroom and other care routines, personal items, smoking policy, room service/diet, and visiting hours. Information on how to activate the Rapid Response Team has been discussed. Patient/Family are encouraged to report perceived risks to care and to ask questions if they do not understand what they are told or what they should do.
[2022-10-09] MEDS: CEFEPIME 2 GM/NS 50 ML 2 GM/50 ML BAG IVPB (23:11)
[2022-10-09] MEDS: metroNIDAZOLE 500 MG/ISO 100ML 500 MG/100 ML BAG 100 MG IVPB (23:11)
[2022-10-10 06:00] VITALS: BP 144/90; PULSE 98; RESP 16; TEMP 36.9; O2SAT 96
[2022-10-10] MEDS: metroNIDAZOLE 500 MG/ISO 100ML 500 MG/100 ML BAG 100 MG IVPB ×3 (06:04→22:37)
[2022-10-10 07:31] LABS: Hematocrit 34.3 % (42.0-52.0); Hemoglobin 11.5 g/dL (14.0-18.0); Mean Corpuscular HGB Conc 33.5 g/dl (32-36); Mean Corpuscular Hemoglobin 28.9 pg (26-34); Mean Corpuscular Volume 86.2 fl (80-100); Mean Platelet Volume 9.7 fl (7.4-10.4); Platelet Count Result 201 k/mm3 (150-375); Red Blood Count 3.98 M/mm3 (4.6-6.20); Red Cell Distribution Width 12.4 % (11.5-14.5); White Blood Count 5.5 K/mm3 (4.5-10.0)
[2022-10-10 07:45] LABS: Anion Gap 4 mmol/L (8-16); Blood Urea Nitrogen 15 mg/dL (9-20); Calcium 8.1 mg/dL (8.4-10.2); Carbon Dioxide 26 mmol/L (22-30); Chloride 100 mmol/L (98-107); Estimated CRCL calculation 96 ml/min; Estimated Glomerular Filt Rate > 60; Glucose 306 mg/dL (65-110); Magnesium 1.6 mg/dL (1.6-2.3); Potassium 4.2 mmol/L (3.4-5.0); Sodium 130 mmol/L (137-145)
[2022-10-10 08:55] LABS: Glucose Point of Care 328 mg/dl (65-105)
[2022-10-10 09:00] LABS: Hemoglobin A1C 11.8 % (<5.7)
[2022-10-10] MEDS: ENOXAPARIN 40 MG/0.4 ML SYRINGE SUB-Q (09:14)
[2022-10-10] MEDS: INSULIN ASPART (*BKC) 100 UNITS/ML SUB-Q ×3 (09:14→17:09)
[2022-10-10] MEDS: INSULIN ASPART (*BKC) 100 UNITS/ML 7 UNITS SUB-Q ×2 (09:14→17:08)
[2022-10-10] MEDS: SILVERGEL (ELTA) 45 ML 1 APPLIC TOPICAL (09:15)
[2022-10-10] MEDS: CEFEPIME 2 GM/NS 50 ML 2 GM/50 ML BAG IVPB ×2 (10:44→22:35)
[2022-10-10 11:53] LABS: Glucose Point of Care 321 mg/dl (65-105)
[2022-10-10 14:00] VITALS: BP 124/75; PULSE 95; RESP 16; TEMP 36.6; O2SAT 98
--- NOTE | 2022-10-10 15:50 | PM.IMPN ---
Progress Note: A&P Assessment and Plan (1) Diabetic foot infection: Code(s): E11.628 - Type 2 diabetes mellitus with other skin complications; L08.9 - Local infection of the skin and subcutaneous tissue, unspecified Status: Acute Assessment and Plan: He has an infected ulcer on the bottom of the right foot and he is also noted to have pressure ulcers around the left stump incision and lateral left knee, likely due to ill fitting prosthesis. X-ray of right foot status post amputation of the 3rd digit. He has been started on cefepime, metronidazole, and vancomycin per antibiotic stewardship recommendations. Patient reports seeing Dr. Lozada for diabetic foot wounds and his input is appreciated. Wound nurse has also been consulted. Wound culture pending. MRI hypointense T1 marrow signal in the very small 3rd proximal phalangeal remnant this could reflect residual osteomyelitis versus postoperative marrow signal changes. No other evidence of osteomyelitis noted. (2) Cellulitis of right foot: Code(s): L03.115 - Cellulitis of right lower limb Status: Acute Assessment and Plan: Plan is as detailed above. (3) Insulin dependent diabetes mellitus: Status: Acute Assessment and Plan: On short acting insulin, 7 units BID with meals. Initiate sliding scale insulin, Accu-Cheks, and hypoglycemic protocol. A1c 11.8 Patient does not follow up primary care nor does he take any diabetic medications at home. (4) Hypertension: Code(s): I10 - Essential (primary) hypertension Status: Acute Assessment and Plan: Blood pressures were reviewed and they have been running in the 130s to 140s systolic. He is not currently taking antihypertensives. Continue monitor blood pressures closely and consider reinitiating medication. (5) Polysubstance abuse: Code(s): F19.10 - Other psychoactive substance abuse, uncomplicated Status: Acute Assessment and Plan: Patient admits using methamphetamines. Denies having symptoms of withdrawal at this time. (6) Tobacco dependence: Code(s): F17.200 - Nicotine dependence, unspecified, uncomplicated Status: Acute Assessment and Plan: He smokes less than a pack a day. Nicotine patch available if needed. Subjective Date/time seen: 10/10/22 15:50 Interval history: Patient is not your to participate in physical exam or questioning. Patient appears disheveled. he has minimal pain in his right foot although he states that his left stump does have pain on the end. He is unsure of how long his right foot wound has been there. He denies fevers, body aches, chills, nausea, vomiting, chest pain shortness a breath. Review of Systems Review of Systems: All systems reviewed & are unremarkable except as noted in HPI and below Exam Narrative: GENERAL: Comfortable, no acute distress HENMT: moist mucous membranes EYES: EOM intact b/l NECK: no lymphadenopathy RESPIRATORY: clear to auscultation CARDIO: RRR GI: soft, nontender, bowel sounds present SKIN: no rashes EXTREMITIES: Right lateral foot ulcer approximately 1.5 cm in size with surrounding erythema; small scab on left stump approximately 5 mm in size; Lack of cleanliness on the bottoms of the feet Objective Data Vital Signs Vital Signs: Vital Signs - 24 hr 10/09/22 17:09 10/09/22 17:10 10/09/22 17:15 Temperature Pulse Rate Respiratory Rate Blood Pressure 145/91 H Pulse Oximetry 97 97 96 Oxygen Delivery 10/09/22 17:16 10/09/22 17:45 10/09/22 18:37 Temperature Pulse Rate Respiratory Rate Blood Pressure 148/93 H Pulse Oximetry 98 98 97 Oxygen Delivery 10/09/22 18:45 10/09/22 18:46 10/09/22 19:00 Temperature Pulse Rate Respiratory Rate Blood Pressure 149/93 H Pulse Oximetry 98 98 98 Oxygen Delivery 10/09/22 19:16 10/09/22 20:00 10/09/22
[2022-10-10 17:09] LABS: Glucose Point of Care 255 mg/dl (65-105)
[2022-10-10 21:11] VITALS: BP 143/80; PULSE 95; RESP 16; TEMP 37.4; O2SAT 98
[2022-10-10 21:51] LABS: Glucose Point of Care 218 mg/dl (65-105)
[2022-10-10] MEDS: INSULIN GLARGINE (*BKC) 100 UNITS/ML 15 UNITS SUB-Q (22:33)
[2022-10-11 00:03] LABS: Vancomycin Trough 15.1 ug/mL (10.0-20.0)
[2022-10-11 04:39] VITALS: BP 144/83; PULSE 94; RESP 16; TEMP 36.5; O2SAT 97
[2022-10-11] MEDS: metroNIDAZOLE 500 MG/ISO 100ML 500 MG/100 ML BAG 100 MG IVPB ×3 (06:18→20:51)
[2022-10-11 06:58] LABS: Basophils Percent Auto 0.5 % (0.2-1.2); Eosinophils Absolute Auto 0.2 K/mm3 (0-0.3); Eosinophils Percent Auto 3.2 % (0-4.4); Hematocrit 36.5 % (42.0-52.0); Hemoglobin 12.3 g/dL (14.0-18.0); Immature Granulocyte Absolute 0.02 K/mm3 (0.00-0.031); Immature Granulocyte Percent A 0.4 % (0-0.5); Lymphocytes Absolute Auto 1.12 K/mm3 (0.9-3.2); Lymphocytes Percent Auto 20.2 % (18.3-44.2); Mean Corpuscular HGB Conc 33.7 g/dl (32-36); Mean Corpuscular Hemoglobin 28.9 pg (26-34); Mean Corpuscular Volume 85.9 fl (80-100); Mean Platelet Volume 9.8 fl (7.4-10.4); Monocytes Absolute Auto 0.4 K/mm3 (0.1-0.6); Monocytes Percent Auto 7.4 % (2.6-8.5); Neutrophils Absolute Auto 3.8 K/mm3 (1.3-6.7); Neutrophils Percent Auto 68.3 % (45.5-73.1); Platelet Count Result 224 k/mm3 (150-375); Red Blood Count 4.25 M/mm3 (4.6-6.20); Red Cell Distribution Width 12.3 % (11.5-14.5); White Blood Count 5.5 K/mm3 (4.5-10.0)
[2022-10-11 07:19] LABS: Alanine Aminotransferase 30 U/L (6-50); Albumin Level 3.4 g/dL (3.5-5.1); Alkaline Phosphatase 124 U/L (38-126); Anion Gap 5 mmol/L (8-16); Aspartate Amino Transferase 40 U/L (17-59); Bilirubin,Total 0.4 mg/dL (0.2-1.3); Blood Urea Nitrogen 14 mg/dL (9-20); Calcium 8.6 mg/dL (8.4-10.2); Carbon Dioxide 29 mmol/L (22-30); Chloride 100 mmol/L (98-107); Estimated CRCL calculation 84 ml/min; Estimated Glomerular Filt Rate > 60; Glucose 249 mg/dL (65-110); Potassium 4.2 mmol/L (3.4-5.0); Sodium 134 mmol/L (137-145)
[2022-10-11 08:50] LABS: Glucose Point of Care 252 mg/dl (65-105)
[2022-10-11] MEDS: SILVERGEL (ELTA) 45 ML 1 APPLIC TOPICAL (08:57)
[2022-10-11] MEDS: metFORMIN HCL 500 MG TABLET PO (08:57)
[2022-10-11] MEDS: ENOXAPARIN 40 MG/0.4 ML SYRINGE SUB-Q (08:57)
[2022-10-11] MEDS: INSULIN ASPART (*BKC) 100 UNITS/ML SUB-Q ×4 (08:58→20:51)
[2022-10-11] MEDS: INSULIN ASPART (*BKC) 100 UNITS/ML 7 UNITS SUB-Q ×2 (08:58→17:41)
[2022-10-11 09:42] VITALS: O2SAT 95
[2022-10-11] MEDS: CEFEPIME 2 GM/NS 50 ML 2 GM/50 ML BAG IVPB ×2 (10:27→20:50)
--- NOTE | 2022-10-11 11:41 | WPDCN ---
Assessment and Plan Assessment and plan (1) Diabetic foot ulcer: Qualifiers: Diabetic foot ulcer location: midfoot Diabetes mellitus type: type 2 Laterality: right Non-pressure ulcer stage: limited to breakdown of skin Qualified Code(s): E11.621 - Type 2 diabetes mellitus with foot ulcer; L97.411 - Non-pressure chronic ulcer of right heel and midfoot limited to breakdown of skin Code(s): E11.621 - Type 2 diabetes mellitus with foot ulcer; L97.509 - Non-pressure chronic ulcer of other part of unspecified foot with unspecified severity Status: Acute Assessment and Plan: Presently the cellulitis at the ulcer has improved. The culture showed Streptococcus which is sensitive to the IV antibiotics. At this point I would continue local wound care and IV antibiotics. Wound care nurses are managing the wound presently. Topical agents for debridement and local wound care should be adequate. There is no obvious evidence of osteomyelitis on MRI. Hopefully this will heal and he can avoid having a right below-knee amputation in the future. Blood sugars are running in the 200 and 300 and so is a poorly controlled diabetic. Diabetes education will be needed and he will have to be compliant with diabetes management in order to avoid further amputations in the future. We will continue to follow. HPI Data of Consult Date/Time: 10/11/22 11:41 Requesting Physician: Bobo Tovar MD Primary Care Provider: PHYSICIAN NOT ON STAFF Consult Narrative Narrative: Humberto Helms is a 67 year old male who was admitted to the hospital with a right lateral plantar surface ulcer. He is a known diabetic. He has had a previous left below-knee amputation. X-ray of the right foot shows no fracture. History of a right 3rd toe amputation in the past. MRI of the right foot shows edema in the area the ulcer but no obvious evidence of osteomyelitis at the area the ulcer. White blood cell count is normal. Review of Systems Review of Systems: The remainder of the review of systems to include constitutional, HEENT, cardiovascular, respiratory, GI, , integumentary, musculoskeletal, endocrine, immunologic, hematologic, psychiatric, and neurologic are all negative except for which is mentioned above in the HPI. [facility] Past Medical History Medical History Anxiety Depression Diabetic retinopathy Gastroesophageal reflux disease Hepatitis C Hyperlipidemia Hypertension Insulin dependent diabetes mellitus Paroxysmal atrial fibrillation Polysubstance abuse Prostate cancer Status post radiation. Tobacco dependence Tuberculosis (2015) Surgical History Surgical History History of appendectomy History of left below knee amputation History of tonsillectomy Family History Family History Father Diabetes mellitus Son Heart disease Mother Heart disease Sibling Cerebral aneurysm Social History Social History Social History: Surrogate medical decision maker: Luma Blank, daughter. Code status: Full code. Smoking packs per day: 0.5 Smoking cigarettes per day: 10.0 Years smoked: 50 Smoking pack-years: 25.00 Smoking status: Current every day smoker Tobacco type: cigarettes Second hand tobacco smoke exposure: Yes Alcohol intake: never Substance use: current Substance use type: marijuana and methamphetamine Lack of Transportation: YES Lack of Food: Sometimes True Current Housing: I Do Not Have Housing Concerned About Future Housing: YES Difficulty Paying Gas/Electric Bills: YES Difficulty Paying for Meds: No Currently Unemployed: No Education: Grade School Difficulty w/ Childcare or Family Care: No Living arrangements: with friend(s) Additional living arrangemen
[2022-10-11 11:55] LABS: Glucose Point of Care 296 mg/dl (65-105)
--- NOTE | 2022-10-11 13:05 | PM.IMPN ---
Progress Note: A&P Assessment and Plan (1) Diabetic foot infection: Code(s): E11.628 - Type 2 diabetes mellitus with other skin complications; L08.9 - Local infection of the skin and subcutaneous tissue, unspecified Status: Acute Assessment and Plan: He has an infected ulcer on the bottom of the right foot and he is also noted to have pressure ulcers around the left stump incision and lateral left knee, likely due to ill fitting prosthesis. X-ray of right foot status post amputation of the 3rd digit. He has been started on cefepime, metronidazole, and vancomycin per antibiotic stewardship recommendations. Patient reports seeing Dr. Lozada for diabetic foot wounds and his input is appreciated. Wound nurse has also been consulted. Wound culture positive for group C strep MRI hypointense T1 marrow signal in the very small 3rd proximal phalangeal remnant this could reflect residual osteomyelitis versus postoperative marrow signal changes. No other evidence of osteomyelitis noted. (2) Cellulitis of right foot: Code(s): L03.115 - Cellulitis of right lower limb Status: Acute Assessment and Plan: Plan is as detailed above. (3) Insulin dependent diabetes mellitus: Status: Acute Assessment and Plan: On short acting insulin, 7 units BID with meals. Initiate sliding scale insulin, Accu-Cheks, and hypoglycemic protocol. A1c 11.8 Patient does not follow up primary care nor does he take any diabetic medications at home. (4) Hypertension: Code(s): I10 - Essential (primary) hypertension Status: Acute Assessment and Plan: Blood pressures were reviewed and they have been running in the 130s to 140s systolic. He is not currently taking antihypertensives. Continue monitor blood pressures closely and consider reinitiating medication. (5) Polysubstance abuse: Code(s): F19.10 - Other psychoactive substance abuse, uncomplicated Status: Acute Assessment and Plan: Patient admits using methamphetamines. Denies having symptoms of withdrawal at this time. (6) Tobacco dependence: Code(s): F17.200 - Nicotine dependence, unspecified, uncomplicated Status: Acute Assessment and Plan: He smokes less than a pack a day. Nicotine patch available if needed. Subjective Date/time seen: 10/11/22 13:05 Interval history: Pt doing well today with no new complaints. Denies foot/stump pain, nausea, vomiting, body aches and chills. Review of Systems Review of Systems: All systems reviewed & are unremarkable except as noted in HPI and below Exam Narrative: GENERAL: Comfortable, no acute distress HENMT: moist mucous membranes EYES: EOM intact b/l NECK: no lymphadenopathy RESPIRATORY: clear to auscultation CARDIO: RRR GI: soft, nontender, bowel sounds present SKIN: no rashes EXTREMITIES: Right lateral foot ulcer approximately 1.5 cm in size with surrounding erythema; small scab on left stump approximately 5 mm in size; Lack of cleanliness on the bottoms of the feet Objective Data Vital Signs Vital Signs: Vital Signs - 24 hr 10/10/22 14:00 10/10/22 21:11 10/11/22 04:39 Temperature 97.8 F 99.3 F 97.7 F Pulse Rate 95 95 94 Respiratory Rate 16 16 16 Blood Pressure 124/75 143/80 H 144/83 H Pulse Oximetry 98 98 97 Oxygen Delivery 10/11/22 09:42 Temperature Pulse Rate Respiratory Rate Blood Pressure Pulse Oximetry 95 Oxygen Delivery Room Air Intake/Output Intake/Output: Intake & Output 10/08/22 10/09/22 10/10/22 10/11/22 23:59 23:59 23:59 23:59 Intake Total 1600 3020 890 Output Total 3000 1500 Balance 1600 20 -610 Meds/Results Medications: Active Medications Generic Name Dose Route Start Last Admin Trade Name Freq PRN Reason Stop Dose Admin Acetaminophen 650 mg 10/09/22 22:21 Acetaminophen 325 Mg Tablet PO Q6H PRN
[2022-10-11 13:16] VITALS: BP 134/68; PULSE 94; RESP 16; TEMP 36.5; O2SAT 99
[2022-10-11 17:45] LABS: Glucose Point of Care 229 mg/dl (65-105)
[2022-10-11 19:15] VITALS: BP 132/84; PULSE 104; RESP 16; TEMP 37.2; O2SAT 98
[2022-10-11] MEDS: INSULIN GLARGINE (*BKC) 100 UNITS/ML 15 UNITS SUB-Q (20:51)
[2022-10-11 20:53] LABS: Glucose Point of Care 209 mg/dl (65-105)
[2022-10-12] MEDS: metroNIDAZOLE 500 MG/ISO 100ML 500 MG/100 ML BAG 100 MG IVPB (05:04)
[2022-10-12 05:13] VITALS: BP 126/78; PULSE 101; RESP 16; TEMP 36.4; O2SAT 98
[2022-10-12 06:48] LABS: Basophils Percent Auto 0.6 % (0.2-1.2); Eosinophils Absolute Auto 0.2 K/mm3 (0-0.3); Eosinophils Percent Auto 2.7 % (0-4.4); Hematocrit 37.9 % (42.0-52.0); Hemoglobin 12.5 g/dL (14.0-18.0); Immature Granulocyte Absolute 0.01 K/mm3 (0.00-0.031); Immature Granulocyte Percent A 0.2 % (0-0.5); Lymphocytes Absolute Auto 1.31 K/mm3 (0.9-3.2); Mean Corpuscular Hemoglobin 28.9 pg (26-34); Mean Corpuscular Volume 87.5 fl (80-100); Monocytes Absolute Auto 0.4 K/mm3 (0.1-0.6); Monocytes Percent Auto 6.9 % (2.6-8.5); Neutrophils Absolute Auto 4.3 K/mm3 (1.3-6.7); Neutrophils Percent Auto 68.6 % (45.5-73.1); Platelet Count Result 238 k/mm3 (150-375); Red Blood Count 4.33 M/mm3 (4.6-6.20); Red Cell Distribution Width 12.3 % (11.5-14.5); White Blood Count 6.2 K/mm3 (4.5-10.0)
[2022-10-12 07:12] LABS: Alanine Aminotransferase 43 U/L (6-50); Albumin Level 3.5 g/dL (3.5-5.1); Alkaline Phosphatase 116 U/L (38-126); Anion Gap 4 mmol/L (8-16); Aspartate Amino Transferase 79 U/L (17-59); Bilirubin,Total 0.3 mg/dL (0.2-1.3); Blood Urea Nitrogen 20 mg/dL (9-20); CRP 1.4 mg/dL (<1.0); Calcium 8.5 mg/dL (8.4-10.2); Carbon Dioxide 28 mmol/L (22-30); Chloride 101 mmol/L (98-107); Estimated CRCL calculation 82 ml/min; Estimated Glomerular Filt Rate > 60; Glucose 181 mg/dL (65-110); Potassium 4.1 mmol/L (3.4-5.0); Sodium 133 mmol/L (137-145)
[2022-10-12 08:36] LABS: Glucose Point of Care 221 mg/dl (65-105)
[2022-10-12] MEDS: metFORMIN HCL 500 MG TABLET PO (08:36)
[2022-10-12] MEDS: ENOXAPARIN 40 MG/0.4 ML SYRINGE SUB-Q (08:36)
[2022-10-12] MEDS: INSULIN ASPART (*BKC) 100 UNITS/ML 7 UNITS SUB-Q (08:37)
[2022-10-12] MEDS: SILVERGEL (ELTA) 45 ML 1 APPLIC TOPICAL (08:41)
[2022-10-12] MEDS: AMOXICILLIN/CLAVULANATE K 875-125 MG TAB 1 TABLET PO (08:46)
--- NOTE | 2022-10-12 11:58 | PM.PNGS ---
Progress Note: A&P Assessment and Plan (1) Diabetic foot ulcer: Qualifiers: Diabetes mellitus type: type 2 Diabetic foot ulcer location: midfoot Laterality: right Non-pressure ulcer stage: limited to breakdown of skin Qualified Code(s): E11.621 - Type 2 diabetes mellitus with foot ulcer; L97.411 - Non-pressure chronic ulcer of right heel and midfoot limited to breakdown of skin Code(s): E11.621 - Type 2 diabetes mellitus with foot ulcer; L97.509 - Non-pressure chronic ulcer of other part of unspecified foot with unspecified severity Status: Acute Assessment and Plan: Patient have a course of oral antibiotics at home he is being discharged today. He can follow-up in [facility] in the next 1 to 2 weeks. Subjective Subjective Date/Time Seen: 10/12/22 11:58 Interval history: Patient is fully dressed with shoes on and his prosthesis on. Tells me is being discharged today. Exam Extrem: Other: Right foot ulcer unchanged from yesterday. No spreading erythema from the wound. No necrotic tissue noted. Objective Data Vital Signs Vital Signs: Vital Signs - 24 hr 10/11/22 13:16 10/11/22 19:15 10/12/22 05:13 Temperature 36.5 C 37.2 C 36.4 C Pulse Rate 94 104 H 101 H Respiratory Rate 16 16 16 Blood Pressure 134/68 132/84 126/78 Pulse Oximetry 99 98 98 Oxygen Delivery 10/12/22 08:37 Temperature Pulse Rate Respiratory Rate Blood Pressure Pulse Oximetry Oxygen Delivery Room Air Intake/Output Intake/Output: Intake & Output 10/09/22 10/10/22 10/11/22 10/12/22 23:59 23:59 23:59 23:59 Intake Total 1600 3020 2120 820 Output Total 3000 2100 700 Balance 1600 20 20 120 Meds/Results Medications: Active Medications Generic Name Dose Route Start Last Admin Trade Name Freq PRN Reason Stop Dose Admin Acetaminophen 650 mg 10/09/22 22:21 Acetaminophen 325 Mg Tablet PO Q6H PRN Mild Pain (1-3) or Fever Hydrocodone Bitart/Acetaminophen 1 tab 10/09/22 22:21 Hydrocodone/Acetaminophen (*Crx) 5-325 Mg Tablet PO Q6H PRN Pain Rated 4-6 Amoxicillin/Clavulanate Potassium 1 tablet 10/12/22 09:00 10/12/22 08:46 Amoxicillin/Clavulanate K 875-125 Mg Tab PO 1 tablet Q12HR OMI Administration Dextrose 12.5 gm 10/09/22 22:21 Dextrose 50% 25 Gm/50 Ml Syringe IV PUSH PRN PRN Hypoglycemia Protocol Enoxaparin Sodium 40 mg 10/10/22 09:00 10/12/22 08:36 Enoxaparin 40 Mg/0.4 Ml Syringe SUB-Q 40 mg DAILY OMI Administration Glucagon 1 mg 10/09/22 22:21 Glucagon For Inj 1 Mg Vial IM PRN PRN Hypoglycemia Protocol Glucose 15 gm 10/09/22 22:21 Glucose Oral Gel 15 Gm Of Glucse In 37.5 Gm Tube PO PRN PRN Hypoglycemia Protocol Dextrose 1,000 mls @ 100 mls/hr 10/09/22 22:21 Dextrose 5% 1,000 Ml IVPB PRN PRN Hypoglycemia Protocol Insulin Aspart 7 units 10/10/22 08:00 10/12/22 08:37 Insulin Aspart (*Bkc) 100 Units/Ml SUB-Q 7 units BIDWM OMI Administration Insulin Aspart 4 - 8 units 10/12/22 12:00 Insulin Aspart (*Bkc) 100 Units/Ml SUB-Q TIDWM OMI Protocol Insulin Glargine 20 units 10/12/22 21:00 Insulin Glargine (*Bkc) 100 Units/Ml SUB-Q HS OMI Metformin HCl 500 mg 10/11/22 08:00 10/12/22 08:36 Metformin Hcl 500 Mg Tablet PO 500 mg DAILY@0800 OMI Administration Silver Nitrate 1 applic 10/10/22 09:00 10/12/22 08:41 Silvergel (Elta) 45 Ml TOPICAL 1 applic DAILY OMI Administration Radiology Results: ITS Impressions Foot X-Ray 10/09/22 15:14 Impression: 1: Status post amputation of the right third digit at the proximal phalanx. There is concern for osteomyelitis, consider correlation with MRI. Foot MRI 10/10/22 09:40 IMPRESSION: Hypointense T1 marrow signal in the very small third proximal phalangeal remnant. This could reflect residual osteomyelitis of thi
[2022-10-12 12:21] LABS: Glucose Point of Care 190 mg/dl (65-105)
--- NOTE | 2022-10-12 12:44 | PM.DS ---
DS: Admitting Diagnosis Discharge Date 10/12/22 Admitting Diagnosis Diabetic foot wound DS: Discharge Diagnosis Discharge Diagnosis (1) Diabetic foot infection: Code(s): E11.628 - Type 2 diabetes mellitus with other skin complications; L08.9 - Local infection of the skin and subcutaneous tissue, unspecified Status: Acute Assessment and Plan: He has an infected ulcer on the bottom of the right foot and he is also noted to have pressure ulcers around the left stump incision and lateral left knee, likely due to ill fitting prosthesis. X-ray of right foot status post amputation of the 3rd digit. He has been started on cefepime, metronidazole, and vancomycin transition to Augmentin Patient reports seeing Dr. Lozada for diabetic foot wounds and his input is appreciated. Wound nurse has also been consulted. Wound culture positive for group C strep MRI hypointense T1 marrow signal in the very small 3rd proximal phalangeal remnant this could reflect residual osteomyelitis versus postoperative marrow signal changes. No other evidence of osteomyelitis noted. (2) Cellulitis of right foot: Code(s): L03.115 - Cellulitis of right lower limb Status: Acute Assessment and Plan: Plan is as detailed above. (3) Insulin dependent diabetes mellitus: Status: Acute Assessment and Plan: On short acting insulin, 7 units BID with meals. Initiate sliding scale insulin, Accu-Cheks, and hypoglycemic protocol. A1c 11.8 Patient does not follow up primary care nor does he take any diabetic medications at home. (4) Hypertension: Code(s): I10 - Essential (primary) hypertension Status: Acute Assessment and Plan: Blood pressures were reviewed and they have been running in the 130s to 140s systolic. He is not currently taking antihypertensives. Continue monitor blood pressures closely and consider reinitiating medication. (5) Polysubstance abuse: Code(s): F19.10 - Other psychoactive substance abuse, uncomplicated Status: Acute Assessment and Plan: Patient admits using methamphetamines. Denies having symptoms of withdrawal at this time. (6) Tobacco dependence: Code(s): F17.200 - Nicotine dependence, unspecified, uncomplicated Status: Acute Assessment and Plan: He smokes less than a pack a day. Nicotine patch available if needed. DS: Summary Hospital Course Hospital Course: this is a 67-year-old male with a history of tobacco abuse, left mtapt-paj-ovts amputation, insulin-dependent diabetes, AFib, hypertension, hyperlipidemia, hepatitis-C, prostate cancer post radiation and a history of drug abuse that presents to the ED on 10/09/2022 for evaluation of right foot ulcer. Patient also has neuropathy and was unsure as to when the ulcer presented. He G had just noticed malodorous pus coming out of the wound. Patient's glucose was found to be 412 in the ED. patient's white count was within normal limits. Foot x-ray revealing findings concerning for osteomyelitis and patient was started on vanc, cefepime and Flagyl. MRI of the foot performed and did not show any osteomyelitis. General surgery consulted on patient and they did not believe patient needed surgical debridement at this time. wound care consulted on patient. Wound culture Positive for group C strep. Patient was transition to p.o. Augmentin. Recommended per surgery to follow-up in [facility]. On day of discharge patient was asymptomatic and denied pain in the lower extremities, body aches, chills, nausea, vomiting and dizziness. Patient's labs and vital signs are stable. Patient's CRP on day of discharge was 1.4. He is medically cleared for discharge. Time Spent with Patient Time attestation: Total time spent providing and/or coordinating discharge services: Exam Narrative: GENERAL: Comfortable, no acute distress
== END 2022-10-12 13:55 | disposition home or self-care (01) | DRG 639 ==
LOC: ANHED 19:02 → ANH3MED 19:23
PROVIDERS: Physician Assistant; Admitting Provider Family Medicine; Emergency Provider Emergency Medicine; Visit Provider Internal Medicine Critical Care Medicine
DX: E11.621 Type 2 diabetes mellitus with foot ulcer (principal); L08.89 Other specified local infections of the skin and subcutaneous tissue; L97.519 Non-pressure chronic ulcer of other part of right foot with unspecified severity; B95.4 Other streptococcus as the cause of diseases classified elsewhere; I10 Essential (primary) hypertension; E78.5 Hyperlipidemia, unspecified; E11.42 Type 2 diabetes mellitus with diabetic polyneuropathy; K21.9 Gastro-esophageal reflux disease without esophagitis; F41.9 Anxiety disorder, unspecified; F32.A Depression, unspecified; E11.319 Type 2 diabetes mellitus with unspecified diabetic retinopathy without macular edema; I48.0 Paroxysmal atrial fibrillation; F15.10 Other stimulant abuse, uncomplicated; F17.210 Nicotine dependence, cigarettes, uncomplicated; Z89.512 Acquired absence of left leg below knee; Z85.46 Personal history of malignant neoplasm of prostate; Z86.19 Personal history of other infectious and parasitic diseases; Z86.11 Personal history of tuberculosis; Z90.49 Acquired absence of other specified parts of digestive tract
CPT/HCPCS: 36415; 73630; 73720; 80048; 80053; 80202; 82948; 83036; 83735; 85025; 85027; 86140; 87040; 87070; 87147; 87205; 96365; 96366; 96367; 96368; 96372; 97161; 97165; 99285; A9270; A9577; G0378; J0692; J1650; J1815; J2543; J3370; J7030

== ENCOUNTER 2022-11-06 20:15 | Inpatient (IN) | payer MEDICARE, MEDICAID, SELFPAY ==
--- NOTE | ~2022-11-06 | US_ITS ---
EXAMINATION: US arterial ankle brachial ind DATE: 11/08/2022 13:38 INDICATION: Peripheral vascular disease TECHNIQUE: Segmental pressures and plethysmographic and Doppler waveforms of the brachial and lower e xtremity arteries were obtained. Request referring physician pressures were not obtained in the left lower extremity given a prior left lpwmv-[id number]-[id number] amputation. COMPARISON: None. FINDINGS: Right and left brachial artery pressures of 163 mm Hg and 133 mm Hg, respectively, are concordant (no rmal difference <= 30 mmHg). The right ankle-brachial index (JORGE) is 0.72 (normal >= 0.9-1.0). The right great toe-brachial index (TBI) is 0.59 (normal >= 0.65). Arterial Doppler waveforms are biphasic with borderline delayed upstr okes at both right posterior tibial and dorsalis pedis arteries. IMPRESSION: 1. Arterial occlusive disease to the right lower limb with moderately decreased right JORGE. 2. Borderline pressure differential between the right and left brachial arteries suggesting a possibl e or proximal stenosis on the left. Could consider further evaluation with CT angiogram of the caroti d arteries and aortic arch. Reviewed, dictated and finalized at location A. IMPRESSION: 1. Arterial occlusive disease to the right lower limb with moderately decreased right JORGE. 2. Borderline pressure differential between the right and left brachial arterie s suggesting a possible or proximal stenosis on the left. Could consider furthe r evaluation with CT angiogram of the carotid arteries and aortic arch.
--- NOTE | ~2022-11-06 | XR_ITS ---
Right foot Technique: AP, oblique, and lateral views were obtained. Clinical History: Lateral ulcer, gangrenous fifth toe COMPARISON: 10/09/2022 Findings: There is an oblique fracture, with probable intra-articular extension at the distal aspect of the fifth proximal phalanx. No other fracture evident. Stable prior amputation at the level of the proximal aspect of the third proximal phalanx. Remaining osseous structures appear intact. Joint spa korina are preserved without erosive or degenerative change. Probable focal soft tissue ulcer adjacent t o the base the fifth metatarsal. Impression: Oblique, probable intra-articular fracture at the distal aspect of the fifth proximal phalanx. No definite radiographic evidence for osteomyelitis. Probable soft tissue ulcer at the region of the base of fifth metatarsal. Prior partial amputation of the third digit, as detailed above. Reviewed, dictated and finalized at [facility]. Impression: Oblique, probable intra-articular fracture at the distal aspect of the fifth pr oximal phalanx. No definite radiographic evidence for osteomyelitis. Probable soft tissue ulcer at the region of the base of fifth metatarsal. Prior partial amputation of the third digit, as detailed above.
--- NOTE | ~2022-11-06 | MR_ITS ---
MRI of the right foot CLINICAL HISTORY: Osteomyelitis, ulcer TECHNIQUE: Axial T1-weighted, T2 fat-sat, and T1 fat-sat images, sagittal T1-weighted and STIR images , and coronal T1-weighted and T2 fat-sat images were performed. Following intravenous administration of 15 cc MultiHance gadolinium, T1-weighted fat-sat imaging was performed in the axial, coronal, and sagittal planes. FINDINGS: There is marrow edema with corresponding hypointense T1 marrow signal at the base of fifth metatarsal, and associated areas of cortical deficiency, consistent with osteomyelitis in this region . Remaining osseous structures appear intact, with normal marrow signal. Visualized joint spaces are relatively well-preserved. No joint effusions identified. Plantar fascia is intact. There is diffuse edema of the intrinsic musculature of the foot. There is m ild dorsal subcutaneous soft tissue edema. No abscess evident. There is soft tissue ulcer at the late ral aspect of the foot, adjacent to the base the fifth metatarsal. Lisfranc ligament is intact. IMPRESSION: Osteomyelitis of the base of the fifth metatarsal, with overlying soft tissue ulcer. No abscess. Reviewed, dictated and finalized at location . IMPRESSION: Osteomyelitis of the base of the fifth metatarsal, with overlying soft tissue u lcer. No abscess.
[2022-11-06 20:16] VITALS: BP 167/85; PULSE 122; RESP 16; TEMP 36.7; O2SAT 98
[2022-11-06 23:06] VITALS: O2SAT 99
[2022-11-06 23:11] VITALS: BP 135/82; PULSE 109; RESP 19; O2SAT 98
[2022-11-06 23:13] VITALS: BP 135/82; PULSE 109; RESP 17; O2SAT 98
--- NOTE | 2022-11-06 23:48 | ED.LOWEXIN ---
HPI - Extremity Injury (Lower) General Chief Complaint: Extremity Injury, Lower <AMADOU Ngo Last Filed: 11/07/22 02:04> Stated Complaint: R foot injury <AMADOU Ngo Last Filed: 11/07/22 02:04> Time Seen by Provider: 11/06/22 22:50 <AMADOU Ngo Last Filed: 11/07/22 02:04> Source: patient and old records reviewed <AMADOU Ngo Last Filed: 11/07/22 02:04> Mode of arrival: ambulatory <AMADOU Ngo Last Filed: 11/07/22 02:04> Limitations: no limitations <AMADOU Ngo Last Filed: 11/07/22 02:04> History of Present Illness HPI Narrative: Patient is a 67 y/o male, with PMH of L BKA, A-fib, IDDM, hep C, who presents to the ED with c/o R foot infection. Patient reports a chronic ulcer to the lateral edge of his R mid foot. He was admitted to the hospital here from 10/09-10/12 for cellulitis of the R foot. He received wound care and IV antibiotics and was seen by general surgery, who did not think there is indication for amputation at this time given there was no osteomyelitis findings on right foot MRI. Patient was supposed to follow with wound care upon discharge but states he never got around it. He was discharged on Augmentin, has since finished this. Patient reports ulcer has continued to worsen and he has also noticed redness and black discoloration to his right fifth toe. Denies any new injury state his toenail came off today. Denies fevers. He states his blood sugars have been running in the 300s. <AMADOU Ngo Last Filed: 11/07/22 02:04> Related Data Home Medications: Home Medications Medication Instructions Recorded Confirmed metformin 500 mg tablet 500 mg PO BID 11/07/22 11/07/22 <AMADOU Ngo Last Filed: 11/07/22 02:04> Allergies/Adverse Reactions: Allergies Allergy/AdvReac Type Severity Reaction Status Date / Time No Known Allergies Allergy Mild Verified 11/07/22 04:02 <Josephine Langley PA-C - Last Filed: 11/07/22 02:04> Review of Systems Review of Systems: CONSTITUTIONAL: Denies fever, chills, or sweats. CARDIOVASCULAR: Denies chest pain. RESPIRATORY: Denies dyspnea. SKIN: See HPI. MUSCULOSKELETAL: See HPI. NEUROLOGIC: See HPI. <Josephine Langley PA-C - Last Filed: 11/07/22 02:04> All systems reviewed & are unremarkable except as noted in HPI and below <Josephine Langley PA-C - Last Filed: 11/07/22 02:04> [facility] Past Medical History Medical History: Medical History Anxiety Depression Diabetic retinopathy Gastroesophageal reflux disease Hepatitis C Hyperlipidemia Hypertension Insulin dependent diabetes mellitus Paroxysmal atrial fibrillation Polysubstance abuse Prostate cancer Status post radiation. Tobacco dependence Tuberculosis (2014) <AMADOU Ngo Last Filed: 11/07/22 02:04> Surgical History Surgical History: Surgical History History of appendectomy History of left below knee amputation History of tonsillectomy <Josephine Langley PA-C - Last Filed: 11/07/22 02:04> Family History Family History: Family History Father Diabetes mellitus Son Heart disease Mother Heart disease Sibling Cerebral aneurysm <AMADOU Ngo Last Filed: 11/07/22 02:04> Social History Social History: Social History Social History: Surrogate medical decision maker: Luma Blank, daughter. Code status: Full code. Smoking packs per day: 0.5 Smoking cigarettes per day: 10.0 Years smoked: 50 Smoking pack-years: 25.00 Smoking status: Current every day smoker Tobacco type: cigarettes Second hand tobacco smoke exposure: Yes Alcohol intake:
[2022-11-06 23:54] LABS: Basophils Percent Auto 0.4 % (0.2-1.2); Eosinophils Absolute Auto 0.1 K/mm3 (0-0.3); Eosinophils Percent Auto 1.4 % (0-4.4); Hemoglobin 12.2 g/dL (14.0-18.0); Immature Granulocyte Absolute 0.02 K/mm3 (0.00-0.031); Immature Granulocyte Percent A 0.3 % (0-0.5); Lymphocytes Absolute Auto 1.15 K/mm3 (0.9-3.2); Lymphocytes Percent Auto 15.7 % (18.3-44.2); Mean Corpuscular HGB Conc 33.9 g/dl (32-36); Mean Corpuscular Hemoglobin 28.8 pg (26-34); Mean Corpuscular Volume 84.9 fl (80-100); Mean Platelet Volume 10.6 fl (7.4-10.4); Monocytes Absolute Auto 0.7 K/mm3 (0.1-0.6); Monocytes Percent Auto 9.9 % (2.6-8.5); Neutrophils Absolute Auto 5.3 K/mm3 (1.3-6.7); Neutrophils Percent Auto 72.3 % (45.5-73.1); Platelet Count Result 276 k/mm3 (150-375); Red Blood Count 4.24 M/mm3 (4.6-6.20); Red Cell Distribution Width 12.4 % (11.5-14.5); White Blood Count 7.3 K/mm3 (4.5-10.0)
[2022-11-07 00:04] LABS: Lactic Acid Reflex 2.1 mmol/L (0.7-2.0)
[2022-11-07 00:17] LABS: Alanine Aminotransferase 26 U/L (6-50); Albumin Level 3.8 g/dL (3.5-5.1); Alkaline Phosphatase 130 U/L (38-126); Anion Gap 7 mmol/L (8-16); Aspartate Amino Transferase 29 U/L (17-59); Bilirubin,Total 0.5 mg/dL (0.2-1.3); Blood Urea Nitrogen 28 mg/dL (9-20); CRP 16.2 mg/dL (<1.0); Calcium 8.7 mg/dL (8.4-10.2); Carbon Dioxide 29 mmol/L (22-30); Chloride 92 mmol/L (98-107); Estimated CRCL calculation 80 ml/min; Estimated Glomerular Filt Rate > 60; Glucose 373 mg/dL (65-110); Potassium 4.5 mmol/L (3.4-5.0); Sodium 128 mmol/L (137-145)
[2022-11-07 00:41] LABS: Erythrocyte Sedimentation Rate 79 mm/hr (0-20)
[2022-11-07] MEDS: SODIUM CHLORIDE 0.9% IV 1,000 ML 999 ML IV CONT ×2 (00:52→00:53)
[2022-11-07] MEDS: CEFEPIME 2 GM/NS 50 ML 2 GM/50 ML BAG IVPB ×2 (01:45→15:05)
[2022-11-07 01:46] VITALS: BP 144/91; PULSE 101; RESP 12; O2SAT 98
[2022-11-07] MEDS: metroNIDAZOLE 500 MG/ISO 100ML 500 MG/100 ML BAG 100 MG IVPB ×3 (02:36→17:28)
--- NOTE | 2022-11-07 02:46 | PM.IMHP ---
H&P: HPI History of Present Illness Date/Time: 11/07/22 02:46 Chief Complaint: Right foot ulcer Narrative: Patient is a 67-year-old homeless male with a history of tobacco abuse, methamphetamine use, left zedfo-zzy-vrby amputation, insulin-dependent diabetes, AFib, hypertension, hyperlipidemia, hepatitis-C, prostate cancer post radiation and a recent diagnosis of right foot osteomyelitis that presents to the ED for worsening right foot ulcer. Patient was recently admitted for potential osteomyelitis of his right foot. Foot x-ray revealed findings concerning for osteomyelitis and patient was started on vanc, cefepime and Flagyl.? MRI of the foot performed and did not show any osteomyelitis.? General surgery consulted on patient and they did not believe patient needed surgical debridement at this time.? wound care consulted on patient, with Wound culture? Positive for? group C strep.? Patient was transitioned to p.o. Augmentin, and he said he finished this course.? Patient is homeless and is really unable to take much care of himself. He has noticed increased redness of his right foot and was dropped off by a friend in order to receive further care. On arrival to the ER patient had elevated blood sugar over 300. He said he used to be on insulin but is not taking it anymore. Unsure if he is taking metformin. Patient unsure if he has fever because he says it is hot outside. No nausea or vomiting. No diarrhea or dysuria. Patient says that if there was a recommendation to do further amputation of his infected toe then he would be agreeable to it. Wants his daughter to be his POA and wants to be DNR/DNI. Review of Systems Review of Systems: no fever or weight loss no vision changes, no eye discharge no throat pain, no hoarseness, no lymphadenopathy no chest pain, no palpitations no coughing, no wheezing no abdominal pain, no diarrhea, no nausea, no vomiting no dysuria, no vaginal discharge Minimal leg swelling, no edema no suicidal or homicidal ideation PMFSH Past Medical History Medical History Anxiety Depression Diabetic retinopathy Gastroesophageal reflux disease Hepatitis C Hyperlipidemia Hypertension Insulin dependent diabetes mellitus Paroxysmal atrial fibrillation Polysubstance abuse Prostate cancer Status post radiation. Tobacco dependence Tuberculosis (2014) Surgical History Surgical History History of appendectomy History of left below knee amputation History of tonsillectomy Family History Family History Father Diabetes mellitus Son Heart disease Mother Heart disease Sibling Cerebral aneurysm Social History Social History Social History: Surrogate medical decision maker: Luma Blank, daughter. Code status: Full code. Smoking packs per day: 0.5 Smoking cigarettes per day: 10.0 Years smoked: 50 Smoking pack-years: 25.00 Smoking status: Current every day smoker Tobacco type: cigarettes Second hand tobacco smoke exposure: Yes Alcohol intake: never Substance use: current Substance use type: marijuana and methamphetamine Lack of Transportation: YES Lack of Food: Sometimes True Current Housing: I Do Not Have Housing Concerned About Future Housing: YES Difficulty Paying Gas/Electric Bills: YES Difficulty Paying for Meds: No Currently Unemployed: No Education: Grade School Difficulty w/ Childcare or Family Care: No Living arrangements: with friend(s) Additional living arrangements comments: Currently staying with a friend. 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 Spiritual care concerns: No Agree to blood products: Yes Meds Home Medications and Allergies Home Medic
[2022-11-07 02:51] LABS: Reflex Lactic Acid Yes or No Add Lactic
[2022-11-07 03:17] VITALS: BP 147/92; PULSE 99; RESP 12; O2SAT 98
--- NOTE | 2022-11-07 03:50 | PC.NURSE ---
Patient arrived on 3 Med-Surg at 03:50
--- NOTE | 2022-11-07 03:53 | PC.NURSE ---
Patient arrived on 3 Med-Surg at 03:48
[2022-11-07 03:59] VITALS: BP 146/88; PULSE 102; RESP 20; TEMP 36.6; O2SAT 98
[2022-11-07 04:00] VITALS: BMI 22.3
[2022-11-07 04:05] VITALS: BMI 22.3
[2022-11-07] MEDS: SODIUM CHLORIDE 0.9% IV 1,000 ML 100 ML IV CONT ×2 (04:26→15:06)
[2022-11-07 04:48] LABS: Anion Gap 3 mmol/L (8-16); Blood Urea Nitrogen 20 mg/dL (9-20); Calcium 7.8 mg/dL (8.4-10.2); Carbon Dioxide 28 mmol/L (22-30); Chloride 99 mmol/L (98-107); Estimated CRCL calculation 97 ml/min; Estimated Glomerular Filt Rate > 60; Glucose 259 mg/dL (65-110); Lactic Acid 0.6 mmol/L (0.7-2.0); Magnesium 1.6 mg/dL (1.6-2.3); Potassium 3.8 mmol/L (3.4-5.0); Sodium 130 mmol/L (137-145)
[2022-11-07 04:49] LABS: Partial Thromboplastin Time 34.3 SECONDS (22.3-36.8)
[2022-11-07 05:22] LABS: Hemoglobin A1C 12.6 % (<5.7)
[2022-11-07 05:48] LABS: Ethanol < 10 mg/dL (<10)
[2022-11-07 06:48] VITALS: BP 140/90; PULSE 102; RESP 16; O2SAT 93
[2022-11-07 07:17] LABS: Barbiturate Screen Urine Negative (Negative); Benzodiazepines Screen Urine Negative (Negative)
[2022-11-07 07:27] LABS: Glucose Point of Care 320 mg/dl (65-105)
[2022-11-07 07:31] LABS: Cannabinoid Screen Urine Negative (Negative); Cocaine Screen Urine Negative (Negative); Methadone Screen Urine Negative (Negative); Opiate Screen Urine Negative (Negative); Phencyclidine Screen Urine Negative (Negative)
[2022-11-07 07:50] LABS: Amphetamine Screen Urine Positive (Negative)
[2022-11-07] MEDS: metFORMIN HCL 500 MG TABLET PO ×2 (09:52→17:29)
[2022-11-07] MEDS: INSULIN ASPART (*BKC) 100 UNITS/ML SUB-Q ×3 (09:52→17:29)
[2022-11-07] MEDS: ENOXAPARIN 40 MG/0.4 ML SYRINGE SUB-Q (09:53)
[2022-11-07 11:42] LABS: Glucose Point of Care 292 mg/dl (65-105)
[2022-11-07 11:46] VITALS: BMI 22.3
[2022-11-07 13:04] VITALS: BMI 22.3
--- NOTE | 2022-11-07 13:15 | WPDCN ---
Assessment and Plan Assessment and plan (1) Diabetic foot ulcer: Qualifiers: Diabetes mellitus type: type 2 Diabetic foot ulcer location: midfoot Laterality: right Non-pressure ulcer stage: with necrosis of muscle Qualified Code(s): E11.621 - Type 2 diabetes mellitus with foot ulcer; L97.413 - Non-pressure chronic ulcer of right heel and midfoot with necrosis of muscle Code(s): E11.621 - Type 2 diabetes mellitus with foot ulcer; L97.509 - Non-pressure chronic ulcer of other part of unspecified foot with unspecified severity Status: Acute Assessment and Plan: Patient has nonhealing wounds on the plantar surface of the right foot over the 5th metatarsal. This has dry gangrenous changes now but is cellulitic. Cellulitis has improved with starting IV antibiotics. He also had now has developed dry gangrene and an area white gangrene on the right 5th toe. Cellulitic changes are also associated with the wet and dry gangrene. He does not have any ascending cellulitis onto the right lower extremity at the ankle. I discussed with him possibly amputation the right 5th toe and wound on the plantar surface of the right foot. He will need long-term wound care and good control of his blood sugars. However he tells me is homeless and has not been able to monitor his blood sugar at home. His social situation very difficult to try to save the right foot with distended wound care or extended course of IV antibiotics if that is needed. He does want to try to save the foot at this point and we can try mint of the wound and amputation of the right 5th toe. If the wounds do not heal then he is facing a right below-knee amputation. He understands this plan. We will continue IV antibiotics through the weekend. Or for S his options over the weekend and plan wound debridement of the right foot wound and amputation right 5th toe versus a right below-knee amputation next week. (2) Insulin dependent diabetes mellitus: Status: Acute Assessment and Plan: Patient sugars were in the 3 and 400 on admission. His hemoglobin A1c is greater than 12. He needs to have good control with blood sugars to allowing the wounds to heal if he wants to salvage his right foot. This may be given his social situation of being homeless. Will see if case management can offer any options for help as an outpatient for this patient. HPI Data of Consult Date/Time: 11/07/22 13:15 Requesting Physician: Jose Jefferson MD Primary Care Provider: UNKNOWN,DOCTOR Consult Narrative Reason for consult: Chronic right plantar foot ulcer and gangrenous right right 5th toe Narrative: Humberto Helms is a 67 year old male who has had a long history of uncontrolled controlled diabetes. He has already had a left below-knee amputation due to his diabetes and nonhealing wound. He was in the hospital 3 to 4 weeks ago with the right plantar foot wound which improved with IV antibiotics. He was discharged with a course of oral antibiotics but never followed up with any physician. He has continued to have out of control blood sugars in the 3 and 400s and the right foot wound looks much worse has extended was cellulitic changes and gangrene of the right 5th toe. He has been admitted for IV antibiotics surgical evaluation for possible amputation of the toe or even a right below-knee amputation. Discussing with the patient today he would like to do everything to save his right foot. He tells me that he is homeless and that he does not have the means to afford medications or accurately and safely monitor his blood sugars. Today's white blood count 7300. He has been afebrile. His hemoglobin A1c is greater than 12. Review of Systems Review of Systems: The remainder of the review of systems to include constitutional, HEENT, cardiovascular, respiratory, GI, , integumentary, musculoskeletal, endocrine, immunologic, hematologic, psychiatric, and neurolo
[2022-11-07 14:00] VITALS: BP 135/88; PULSE 106; RESP 16; TEMP 36.7; O2SAT 94
--- NOTE | 2022-11-07 15:27 | PM.IMPN ---
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 Empirically restarted on his previous metronidazole, vancomycin and cefepime. surgery consult and plan for right 5th toe amputation If foot wound does not heal then may have to amputate [id number]-[id number] wound consult Foot x-ray revealing intra-articular fracture at the distal aspect of the fixed proximal phalanx, no evidence of osteomyelitis (2) Cellulitis of right foot: Code(s): L03.115 - Cellulitis of right lower limb Status: Acute Assessment and Plan: Continue empiric antibiotics. Wound care (3) Uncontrolled diabetes mellitus: Qualifiers: Diabetes mellitus type: type 2 Glycemic state: with hyperglycemia Qualified Code(s): E11.65 - Type 2 diabetes mellitus with hyperglycemia Code(s): E11.65 - Type 2 diabetes mellitus with hyperglycemia Status: Acute Assessment and Plan: On review of previous notes, patient had hemoglobin A1c of over 11 during last admission. Was supposed to be on insulin however is homeless and unsure about compliance. Will need strict blood sugar control for proper wound healing. Resume insulin. form grader operator consulted on patient. (4) HTN (hypertension): Code(s): I10 - Essential (primary) hypertension Status: Acute Assessment and Plan: Patient with history of hypertension however due to social circumstances is not taking any medications currently. Ideally should be on QUANG-inhibitor for his diabetes. Start lisinopril-urinalysis in past has shown proteinuria already (5) Polysubstance abuse: Code(s): F19.10 - Other psychoactive substance abuse, uncomplicated Status: Acute Assessment and Plan: -admits to half a pack of tobacco daily as well as methamphetamine use. Advised to quit (6) Homeless: Code(s): Z59.00 - Homelessness unspecified Status: Acute Assessment and Plan: -patient says his son and daughter have no room for him. manager oracle database consult for placement Plan Wants his daughter to be POA Wants to be DNR/DNI Subjective Date/time seen: 11/07/22 15:27 Interval history: Patient resting in bed and appears unkept. Patient voices that he is homeless at this time. He is unable to keep up with his diabetes due to his homelessness. He does have peripheral neuropathy although states he has very mild pain at the site of his foot ulcers. He states that he noticed the ulcers worsening approximately 4-5 days ago. He denies any body aches, chills, nausea, vomiting, chest pain shortness a breath. General surgery consulted as well as wound care and Diabetes Education. Review of Systems Review of Systems: All systems reviewed & are unremarkable except as noted in HPI and below Exam Narrative: GENERAL: Comfortable, no acute distress HENMT: moist mucous membranes EYES: EOM intact b/l NECK: no lymphadenopathy RESPIRATORY: clear to auscultation CARDIO: RRR GI: soft, nontender, bowel sounds present SKIN: no rashes EXTREMITIES: Avgwk-szl-eyqg amputation on left leg; right 5th toe ulceration with black coloring, lateral foot ulceration with black coloring. No active bleeding, surrounding erythema tubal sites. Plus two pedal pulses
[2022-11-07 16:57] LABS: Glucose Point of Care 210 mg/dl (65-105)
[2022-11-07] MEDS: VANCOMYCIN 1,250 MG/NS 250 ML 1,250 MG/250 ML BAG 166.67 MG IVPB (17:29)
[2022-11-07 20:36] LABS: Glucose Point of Care 168 mg/dl (65-105)
[2022-11-07] MEDS: INSULIN GLARGINE (*BKC) 100 UNITS/ML 10 UNITS SUB-Q (21:25)
[2022-11-07 22:00] VITALS: BP 118/60; PULSE 98; RESP 20; TEMP 37.6; O2SAT 99
[2022-11-08] MEDS: SODIUM CHLORIDE 0.9% IV 1,000 ML 100 ML IV CONT ×2 (00:34→13:53)
[2022-11-08] MEDS: metroNIDAZOLE 500 MG/ISO 100ML 500 MG/100 ML BAG 100 MG IVPB ×3 (00:35→16:53)
[2022-11-08] MEDS: CEFEPIME 2 GM/NS 50 ML 2 GM/50 ML BAG IVPB ×2 (01:43→13:14)
[2022-11-08] MEDS: VANCOMYCIN 1,250 MG/NS 250 ML 1,250 MG/250 ML BAG 166.67 MG IVPB ×2 (04:40→17:53)
[2022-11-08 06:00] VITALS: BP 105/65; PULSE 98; RESP 18; TEMP 37.3; O2SAT 95
[2022-11-08 07:05] LABS: Basophils Percent Auto 0.6 % (0.2-1.2); Eosinophils Absolute Auto 0.2 K/mm3 (0-0.3); Eosinophils Percent Auto 2.2 % (0-4.4); Hematocrit 31.4 % (42.0-52.0); Hemoglobin 10.3 g/dL (14.0-18.0); Immature Granulocyte Absolute 0.02 K/mm3 (0.00-0.031); Immature Granulocyte Percent A 0.3 % (0-0.5); Lymphocytes Absolute Auto 1.06 K/mm3 (0.9-3.2); Lymphocytes Percent Auto 15.8 % (18.3-44.2); Mean Corpuscular HGB Conc 32.8 g/dl (32-36); Mean Corpuscular Hemoglobin 28.5 pg (26-34); Mean Platelet Volume 9.9 fl (7.4-10.4); Monocytes Absolute Auto 0.5 K/mm3 (0.1-0.6); Monocytes Percent Auto 7.8 % (2.6-8.5); Neutrophils Absolute Auto 4.9 K/mm3 (1.3-6.7); Neutrophils Percent Auto 73.3 % (45.5-73.1); Platelet Count Result 221 k/mm3 (150-375); Red Blood Count 3.61 M/mm3 (4.6-6.20); Red Cell Distribution Width 12.3 % (11.5-14.5); White Blood Count 6.7 K/mm3 (4.5-10.0)
[2022-11-08 07:19] LABS: Alanine Aminotransferase 22 U/L (6-50); Alkaline Phosphatase 112 U/L (38-126); Anion Gap 6 mmol/L (8-16); Aspartate Amino Transferase 30 U/L (17-59); Bilirubin,Total 0.3 mg/dL (0.2-1.3); Blood Urea Nitrogen 16 mg/dL (9-20); CRP 6.8 mg/dL (<1.0); Calcium 7.9 mg/dL (8.4-10.2); Carbon Dioxide 28 mmol/L (22-30); Chloride 100 mmol/L (98-107); Estimated CRCL calculation 77 ml/min; Estimated Glomerular Filt Rate > 60; Glucose 208 mg/dL (65-110); Potassium 4.1 mmol/L (3.4-5.0); Sodium 134 mmol/L (137-145)
[2022-11-08 09:07] LABS: Glucose Point of Care 223 mg/dl (65-105)
[2022-11-08] MEDS: INSULIN ASPART (*BKC) 100 UNITS/ML SUB-Q ×4 (09:10→16:52)
[2022-11-08] MEDS: metFORMIN HCL 500 MG TABLET PO ×2 (09:12→16:53)
[2022-11-08] MEDS: ENOXAPARIN 40 MG/0.4 ML SYRINGE SUB-Q (09:12)
--- NOTE | 2022-11-08 10:44 | PM.PNGS ---
Progress Note: A&P Assessment and Plan (1) Diabetic foot ulcer: Qualifiers: Diabetes mellitus type: type 2 Diabetic foot ulcer location: midfoot Laterality: right Non-pressure ulcer stage: with necrosis of muscle Qualified Code(s): E11.621 - Type 2 diabetes mellitus with foot ulcer; L97.413 - Non-pressure chronic ulcer of right heel and midfoot with necrosis of muscle Code(s): E11.621 - Type 2 diabetes mellitus with foot ulcer; L97.509 - Non-pressure chronic ulcer of other part of unspecified foot with unspecified severity Status: Acute Assessment and Plan: Cellulitis on the right foot is stable. It is not progressing proximally to the ankle. The right 5th toe is now progressing to dry gangrene. At a long discussion with the patient this morning regarding the high risk of nonhealing wounds after amputation on the right foot and then eventually ending of the right [id number] amputation. Presently he is still hoping to keep the right foot but given his homeless situation and lack of support long-term wound care would be very challenging for him. He will think about it over this weekend will talk more about it but next week he will need to have amputation of the of the right 5th toe and debridement of the right lateral foot ulcer versus a right below-knee amputation. Continue IV antibiotics and supportive management. Subjective Subjective Date/Time Seen: 11/08/22 10:44 Interval history: Patient remains clinically stable. He is on IV antibiotics for his right foot infected ulcers and cellulitis. No fever. White blood cell count remains normal. MRI of the right foot was done yesterday but the reading is still pending. Review of Systems Review of Systems: The remainder of the review of systems to include constitutional, HEENT, cardiovascular, respiratory, GI, , integumentary, musculoskeletal, endocrine, immunologic, hematologic, psychiatric, and neurologic are all negative except for which is mentioned above in the HPI. Exam Const: General: comfortable and no acute distress Eyes: General: appearance normal, both eyes and all related structures Sclera: sclerae normal Pupils: Equal, round and reactive pupils present Neck: Neck: supple and no JVD Resp: Effort & Inspection: normal respiratory effort Auscultation: clear to auscultation bilaterally Cardio: Rate: regular rate Rhythm: regular rhythm GI: GI Palp: Yes Soft to palpation, No Firmness to palpation present (GI), No Tenderness to palpation present (GI), No Guarding due to palpation present (GI) and No Hernia present Psych: Mental Status: mental status grossly normal Affect: normal affect Objective Data Vital Signs Vital Signs: Vital Signs - 24 hr 11/07/22 14:00 11/07/22 22:00 11/07/22 20:00 Temperature 36.7 C 37.6 C Pulse Rate 106 H 98 Respiratory Rate 16 20 Blood Pressure 135/88 118/60 Pulse Oximetry 94 99 Oxygen Delivery Room Air 11/08/22 06:00 11/08/22 09:10 Temperature 37.3 C Pulse Rate 98 Respiratory Rate 18 Blood Pressure 105/65 Pulse Oximetry 95 Oxygen Delivery Room Air Intake/Output Intake/Output: Intake & Output 11/05/22 11/06/22 11/07/22 11/08/22 23:59 23:59 23:59 23:59 Intake Total 4130 2040 Output Total 1725 125 Balance 2405 1915 Meds/Results Medications: Active Medications Generic Name Dose Route Start Last Admin Trade Name Freq PRN Reason Stop Dose Admin Acetaminophen 650 mg 11/07/22 03:04 Acetaminophen 325 Mg Tablet PO Q4H PRN Mild Pain (1-3) or Fever Hydrocodone Bitart/Acetaminophen 1 tab 11/07/22 03:04 Hydrocodone/Acetaminophen (*Crx) 5-325 Mg Tablet PO Q4H PRN Moderate Pain (4-6) Al Hydrox/Mg Hydrox/Simethicone 30 ml 11/07/22 03:04 Mag Hydrox/Al Hydrox/Simeth 30 Ml Udc PO QID PRN Dyspepsia Dextrose 12.5 gm 11/07/22 03:07 Dextrose 50% 25 Gm/50 Ml Syringe IV PUSH PRN PRN Hypoglyc
--- NOTE | 2022-11-08 10:59 | PC.NURSE ---
Ulcer and toe cleaned with betadine, dried and wrapped with kerlex. Pt tolerated well.
[2022-11-08 11:18] LABS: Glucose Point of Care 167 mg/dl (65-105)
--- NOTE | 2022-11-08 13:15 | PCOTNOTE ---
Attempted OT evaluation at 13:15 but patient was off the unit for an ultrasound. Will check back later or tomorrow.
--- NOTE | 2022-11-08 13:35 | PM.IMPN ---
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 Empirically restarted on his previous metronidazole, vancomycin and cefepime. surgery consult and plan for right 5th toe amputation If foot wound does not heal then may have to amputate [id number] wound consult Foot x-ray revealing intra-articular fracture at the distal aspect of the fixed proximal phalanx, no evidence of osteomyelitis MRI pending (2) Cellulitis of right foot: Code(s): L03.115 - Cellulitis of right lower limb Status: Acute Assessment and Plan: Continue empiric antibiotics. Wound care (3) Uncontrolled diabetes mellitus: Qualifiers: Diabetes mellitus type: type 2 Glycemic state: with hyperglycemia Qualified Code(s): E11.65 - Type 2 diabetes mellitus with hyperglycemia Code(s): E11.65 - Type 2 diabetes mellitus with hyperglycemia Status: Acute Assessment and Plan: On review of previous notes, patient had hemoglobin A1c of over 11 during last admission. Was supposed to be on insulin however is homeless and unsure about compliance. Will need strict blood sugar control for proper wound healing. Resume insulin. certified adaptive physical educator consulted on patient. (4) HTN (hypertension): Code(s): I10 - Essential (primary) hypertension Status: Acute Assessment and Plan: Patient with history of hypertension however due to social circumstances is not taking any medications currently. Ideally should be on QUANG-inhibitor for his diabetes. Start lisinopril-urinalysis in past has shown proteinuria already (5) Polysubstance abuse: Code(s): F19.10 - Other psychoactive substance abuse, uncomplicated Status: Acute Assessment and Plan: -admits to half a pack of tobacco daily as well as methamphetamine use. Advised to quit (6) Homeless: Code(s): Z59.00 - Homelessness unspecified Status: Acute Assessment and Plan: -patient says his son and daughter have no room for him. manager furniture consult for placement Plan Wants his daughter to be POA Wants to be DNR/DNI Subjective Date/time seen: 11/08/22 13:35 Interval history: Patient doing well today. Patient said that his pain was well controlled in bili to the have any new complaints. General surgery is following. Patient likely getting right 5th toe amputation with debridement of lateral foot ulcer. Review of Systems Review of Systems: All systems reviewed & are unremarkable except as noted in HPI and below Exam Narrative: GENERAL: Comfortable, no acute distress HENMT: moist mucous membranes EYES: EOM intact b/l NECK: no lymphadenopathy RESPIRATORY: clear to auscultation CARDIO: RRR GI: soft, nontender, bowel sounds present SKIN: no rashes EXTREMITIES: Hpewc-uhu-bwah amputation on left leg; bandage over left foot dry Objective Data Vital Signs Vital Signs: Vital Signs - 24 hr 11/07/22 14:00 11/07/22 22:00 11/07/22 20:00 Temperature 98.1 F 99.6 F Pulse Rate 106 H 98 Respiratory Rate 16 20 Blood Pressure 135/88 118/60 Pulse Oximetry 94 99 Oxygen Delivery Room Air 11/08/22 06:00 11/08/22 09:10 Temperature 99.2 F Pulse Rate 98 Respiratory Rate 18 Blood Pressure 105/65
[2022-11-08 14:00] VITALS: BP 138/74; PULSE 96; RESP 16; TEMP 36.7; O2SAT 99
--- NOTE | 2022-11-08 14:05 | PCPTNOTE ---
Attempted to do PT evaluation at 1326, but patient out of room, will try again later.
[2022-11-08 16:31] LABS: Glucose Point of Care 124 mg/dl (65-105)
[2022-11-08 16:37] LABS: Vancomycin Trough 15.2 ug/mL (10.0-20.0)
[2022-11-09] MEDS: metroNIDAZOLE 500 MG/ISO 100ML 500 MG/100 ML BAG 100 MG IVPB ×3 (00:43→16:03)
[2022-11-09] MEDS: CEFEPIME 2 GM/NS 50 ML 2 GM/50 ML BAG IVPB ×2 (02:12→15:32)
--- NOTE | 2022-11-09 04:19 | PC.NURSE ---
At 2100 on 11/09/2022 Pt refused accucheck and insulin administration. Pt refused care when bed full of urine. Pt was states, Fuck off. Pt was offered to change his bed linen and gown, pt continued to state, Fuck off. Pt refused to have vitals obtained. Pt was educated on the importance of vitals, accuchecks, and insulin administration. Pt continued to state, Fuck off.
[2022-11-09] MEDS: VANCOMYCIN 1,250 MG/NS 250 ML 1,250 MG/250 ML BAG 166.67 MG IVPB (04:38)
[2022-11-09 06:00] VITALS: BP 127/71; PULSE 98; RESP 20; TEMP 37.4; O2SAT 96
[2022-11-09 07:42] LABS: Glucose Point of Care 164 mg/dl (65-105)
[2022-11-09 07:47] LABS: Alanine Aminotransferase 21 U/L (6-50); Albumin Level 3.1 g/dL (3.5-5.1); Alkaline Phosphatase 108 U/L (38-126); Anion Gap 4 mmol/L (8-16); Aspartate Amino Transferase 35 U/L (17-59); Bilirubin,Total 0.3 mg/dL (0.2-1.3); Blood Urea Nitrogen 13 mg/dL (9-20); Calcium 8.3 mg/dL (8.4-10.2); Carbon Dioxide 28 mmol/L (22-30); Chloride 100 mmol/L (98-107); Estimated CRCL calculation 112 ml/min; Estimated Glomerular Filt Rate > 60; Glucose 163 mg/dL (65-110); Sodium 132 mmol/L (137-145)
[2022-11-09 08:05] LABS: Basophils Percent Auto 0.3 % (0.2-1.2); Eosinophils Absolute Auto 0.1 K/mm3 (0-0.3); Eosinophils Percent Auto 1.7 % (0-4.4); Hematocrit 31.4 % (42.0-52.0); Hemoglobin 10.4 g/dL (14.0-18.0); Immature Granulocyte Absolute 0.02 K/mm3 (0.00-0.031); Immature Granulocyte Percent A 0.3 % (0-0.5); Lymphocytes Absolute Auto 0.99 K/mm3 (0.9-3.2); Lymphocytes Percent Auto 15.5 % (18.3-44.2); Mean Corpuscular HGB Conc 33.1 g/dl (32-36); Mean Corpuscular Hemoglobin 28.3 pg (26-34); Mean Corpuscular Volume 85.6 fl (80-100); Mean Platelet Volume 10.4 fl (7.4-10.4); Monocytes Absolute Auto 0.4 K/mm3 (0.1-0.6); Monocytes Percent Auto 6.7 % (2.6-8.5); Neutrophils Absolute Auto 4.8 K/mm3 (1.3-6.7); Neutrophils Percent Auto 75.5 % (45.5-73.1); Platelet Count Result 254 k/mm3 (150-375); Red Blood Count 3.67 M/mm3 (4.6-6.20); Red Cell Distribution Width 12.1 % (11.5-14.5); White Blood Count 6.4 K/mm3 (4.5-10.0)
[2022-11-09] MEDS: INSULIN ASPART (*BKC) 100 UNITS/ML SUB-Q ×3 (08:45→16:37)
[2022-11-09] MEDS: ENOXAPARIN 40 MG/0.4 ML SYRINGE SUB-Q (08:46)
[2022-11-09] MEDS: metFORMIN HCL 500 MG TABLET PO ×2 (08:46→16:38)
[2022-11-09] MEDS: SODIUM CHLORIDE 0.9% IV 1,000 ML 100 ML IV CONT (08:49)
--- NOTE | 2022-11-09 10:24 | PCOTNOTE ---
Spoke with ordering MD at 10:25, cancelling orders due to patient functioning at baseline currently and waiting to have surgery on his R LE. MD will reorder after surgery.
--- NOTE | 2022-11-09 10:41 | PCPTNOTE ---
OT talked to patient's doctor and hold off orders until after procedure tomorrow.
[2022-11-09 11:42] LABS: Glucose Point of Care 179 mg/dl (65-105)
--- NOTE | 2022-11-09 13:24 | PM.IMPN ---
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 Empirically restarted on his previous metronidazole, vancomycin and cefepime. surgery consult and plan for right 5th toe amputation If foot wound does not heal then may have to amputate [id number] wound consult Foot x-ray revealing intra-articular fracture at the distal aspect of the fixed proximal phalanx, no evidence of osteomyelitis MRI revealing osteomyelitis of the base of the 5th metatarsal with overlying soft tissue ulcer. No abscess. (2) Cellulitis of right foot: Code(s): L03.115 - Cellulitis of right lower limb Status: Acute Assessment and Plan: Continue empiric antibiotics. Wound care. (3) Uncontrolled diabetes mellitus: Qualifiers: Diabetes mellitus type: type 2 Glycemic state: with hyperglycemia Qualified Code(s): E11.65 - Type 2 diabetes mellitus with hyperglycemia Code(s): E11.65 - Type 2 diabetes mellitus with hyperglycemia Status: Acute Assessment and Plan: On review of previous notes, patient had hemoglobin A1c of over 11 during last admission. Was supposed to be on insulin however is homeless and unsure about compliance. Will need strict blood sugar control for proper wound healing. Resume insulin. adult educator consulted on patient. (4) HTN (hypertension): Code(s): I10 - Essential (primary) hypertension Status: Acute Assessment and Plan: Patient with history of hypertension however due to social circumstances is not taking any medications currently. Ideally should be on QUANG-inhibitor for his diabetes. Start lisinopril-urinalysis in past has shown proteinuria already (5) Polysubstance abuse: Code(s): F19.10 - Other psychoactive substance abuse, uncomplicated Status: Acute Assessment and Plan: Admits to half a pack of tobacco daily as well as methamphetamine use. Advised to quit. (6) Homeless: Code(s): Z59.00 - Homelessness unspecified Status: Acute Assessment and Plan: Patient says his son and daughter have no room for him. membership sales manager consult for placement Plan Wants his daughter to be POA Wants to be DNR/DNI Subjective Date/time seen: 11/09/22 13:24 Interval history: Patient lying in bed with no new complaints today. Awaiting surgical recommendations on the plan for patient's right foot. MRI did reveal osteomyelitis present. He has no pain today. Review of Systems Review of Systems: All systems reviewed & are unremarkable except as noted in HPI and below Exam Narrative: GENERAL: Comfortable, no acute distress HENMT: moist mucous membranes EYES: EOM intact b/l NECK: no lymphadenopathy RESPIRATORY: clear to auscultation CARDIO: RRR GI: soft, nontender, bowel sounds present SKIN: no rashes EXTREMITIES: Qnyca-fgb-frpq amputation on left leg; bandage over left foot dry Objective Data Vital Signs Vital Signs: Vital Signs - 24 hr 11/08/22 14:00 11/08/22 20:00 11/09/22 06:00 Temperature 98.0 F 99.3 F Pulse Rate 96 98 Respiratory Rate 16 20 Blood Pressure 138/74 127/71 Pulse Oximetry 99 96 Oxygen Delivery Room Air 11/09/22 08:50 Temperature Pulse Rate Respiratory Rate
[2022-11-09 14:00] VITALS: BP 167/89; PULSE 73; RESP 19; TEMP 37.1; O2SAT 100
--- NOTE | 2022-11-09 15:32 | PM.PNGS ---
Progress Note: A&P Assessment and Plan (1) Diabetic foot ulcer: Qualifiers: Diabetes mellitus type: type 2 Diabetic foot ulcer location: midfoot Laterality: right Non-pressure ulcer stage: with necrosis of muscle Qualified Code(s): E11.621 - Type 2 diabetes mellitus with foot ulcer; L97.413 - Non-pressure chronic ulcer of right heel and midfoot with necrosis of muscle Code(s): E11.621 - Type 2 diabetes mellitus with foot ulcer; L97.509 - Non-pressure chronic ulcer of other part of unspecified foot with unspecified severity Status: Acute Assessment and Plan: Patient with diabetic nonhealing right foot ulcer in the setting of uncontrolled diabetes. His hemoglobin A1c is greater than 12 on admission. Has very poor social support and is homeless. I think logistically will be very difficult a have him follow up with the needed care and wound care clinic to try to salvage the right lower extremity and foot. I did discuss with him options of trying limb salvage but also option of right below-knee amputation. He is still thinking about this and will try to get an answer from him tomorrow so that we can move forward with management. Subjective Subjective Date/Time Seen: 11/09/22 15:32 Interval history: Patient without acute changes. MRI of the right foot shows osteomyelitis of the 5th metatarsophalangeal joint. Right JORGE is 0.72 and right TBI is 0.59. He is still undecided about whether he wants to try limb salvage vs right BKA. White blood cell count remains normal. Exam Resp: Effort & Inspection: normal respiratory effort Auscultation: clear to auscultation bilaterally Cardio: Rate: regular rate Rhythm: regular rhythm Extrem: Other: Right foot with redness and white gangrenous changes of the right 5th toe and 5th metatarsophalangeal joint space. Dry gangrene ulcer of the plantar and lateral right foot. No ascending redness or celiac changes up the right ankle. Patient right leg remains warm down to the ankle. Objective Data Vital Signs Vital Signs: Vital Signs - 24 hr 11/08/22 20:00 11/09/22 06:00 11/09/22 08:50 Temperature 37.4 C Pulse Rate 98 Respiratory Rate 20 Blood Pressure 127/71 Pulse Oximetry 96 Oxygen Delivery Room Air Room Air 11/09/22 14:00 Temperature 37.1 C Pulse Rate 73 Respiratory Rate 19 Blood Pressure 167/89 H Pulse Oximetry 100 Oxygen Delivery Intake/Output Intake/Output: Intake & Output 11/06/22 11/07/22 11/08/22 11/09/22 23:59 23:59 23:59 23:59 Intake Total 4130 5020 1240 Output Total 1725 1425 1470 Balance 2409 0943 -595 Meds/Results Medications: Active Medications Generic Name Dose Route Start Last Admin Trade Name Freq PRN Reason Stop Dose Admin Acetaminophen 650 mg 11/07/22 03:04 Acetaminophen 325 Mg Tablet PO Q4H PRN Mild Pain (1-3) or Fever Hydrocodone Bitart/Acetaminophen 1 tab 11/07/22 03:04 Hydrocodone/Acetaminophen (*Crx) 5-325 Mg Tablet PO Q4H PRN Moderate Pain (4-6) Al Hydrox/Mg Hydrox/Simethicone 30 ml 11/07/22 03:04 Mag Hydrox/Al Hydrox/Simeth 30 Ml Udc PO QID PRN Dyspepsia Dextrose 12.5 gm 11/07/22 03:07 Dextrose 50% 25 Gm/50 Ml Syringe IV PUSH PRN PRN Hypoglycemia Protocol Enoxaparin Sodium 40 mg 11/07/22 09:00 11/09/22 08:46 Enoxaparin 40 Mg/0.4 Ml Syringe SUB-Q 40 mg DAILY OMI Administration Glucagon 1 mg 11/07/22 03:07 Glucagon For Inj 1 Mg Vial IM PRN PRN Hypoglycemia Protocol Glucose 15 gm 11/07/22 03:07 Glucose Oral Gel 15 Gm Of Glucse In 37.5 Gm Tube PO PRN PRN Hypoglycemia Protocol Cefepime HCl 2 gm in 50 mls @ 100 mls/hr 11/07/22 14:00 11/09/22 02:42 Maxipime 2 Gm/Ns 50 Ml IVPB Infused Q12H OMI Infusion Metronidazole 500 mg in 100 mls @ 100 mls/hr 11/07/22 08:00 11/09/22 11:30 Flagyl 500 Mg/Iso Soln 100 Ml IVPB Infused Q8H OMI Infusion
[2022-11-09 16:46] LABS: Glucose Point of Care 132 mg/dl (65-105)
[2022-11-09] MEDS: VANCOMYCIN 1,250 MG/NS 250 ML 1,250 MG/250 ML BAG 166 MG IVPB (17:50)
[2022-11-09 20:56] VITALS: BP 141/80; PULSE 100; RESP 18; TEMP 37.1; O2SAT 99
[2022-11-09 22:30] LABS: Glucose Point of Care 111 mg/dl (65-105)
[2022-11-10] MEDS: SODIUM CHLORIDE 0.9% IV 1,000 ML 100 ML IV CONT ×2 (01:38→13:57)
[2022-11-10] MEDS: metroNIDAZOLE 500 MG/ISO 100ML 500 MG/100 ML BAG 100 MG IVPB ×3 (01:38→17:38)
[2022-11-10] MEDS: CEFEPIME 2 GM/NS 50 ML 2 GM/50 ML BAG IVPB ×2 (03:04→13:54)
[2022-11-10] MEDS: VANCOMYCIN 1,250 MG/NS 250 ML 1,250 MG/250 ML BAG 166 MG IVPB ×2 (04:49→17:38)
[2022-11-10 06:00] VITALS: BP 142/90; PULSE 87; RESP 18; TEMP 36.9; O2SAT 97
[2022-11-10 06:29] LABS: Basophils Percent Auto 0.5 % (0.2-1.2); Eosinophils Absolute Auto 0.2 K/mm3 (0-0.3); Eosinophils Percent Auto 2.3 % (0-4.4); Hematocrit 33.2 % (42.0-52.0); Hemoglobin 10.9 g/dL (14.0-18.0); Immature Granulocyte Absolute 0.02 K/mm3 (0.00-0.031); Immature Granulocyte Percent A 0.3 % (0-0.5); Lymphocytes Absolute Auto 1.28 K/mm3 (0.9-3.2); Lymphocytes Percent Auto 19.6 % (18.3-44.2); Mean Corpuscular HGB Conc 32.8 g/dl (32-36); Mean Corpuscular Hemoglobin 28.3 pg (26-34); Mean Corpuscular Volume 86.2 fl (80-100); Mean Platelet Volume 10.2 fl (7.4-10.4); Monocytes Absolute Auto 0.5 K/mm3 (0.1-0.6); Monocytes Percent Auto 7.7 % (2.6-8.5); Neutrophils Absolute Auto 4.5 K/mm3 (1.3-6.7); Neutrophils Percent Auto 69.6 % (45.5-73.1); Platelet Count Result 274 k/mm3 (150-375); Red Blood Count 3.85 M/mm3 (4.6-6.20); Red Cell Distribution Width 12.4 % (11.5-14.5); White Blood Count 6.5 K/mm3 (4.5-10.0)
[2022-11-10 06:37] LABS: Alanine Aminotransferase 23 U/L (6-50); Albumin Level 3.1 g/dL (3.5-5.1); Alkaline Phosphatase 101 U/L (38-126); Anion Gap 4 mmol/L (8-16); Aspartate Amino Transferase 48 U/L (17-59); Bilirubin,Total 0.3 mg/dL (0.2-1.3); Blood Urea Nitrogen 16 mg/dL (9-20); Calcium 8.3 mg/dL (8.4-10.2); Carbon Dioxide 28 mmol/L (22-30); Chloride 101 mmol/L (98-107); Estimated CRCL calculation 97 ml/min; Estimated Glomerular Filt Rate > 60; Glucose 141 mg/dL (65-110); Potassium 3.9 mmol/L (3.4-5.0); Sodium 133 mmol/L (137-145)
[2022-11-10 07:40] LABS: Glucose Point of Care 138 mg/dl (65-105)
--- NOTE | 2022-11-10 08:02 | PCPTNOTE ---
HOLD PT eval- pt to have surgery today. Await new orders post op;
[2022-11-10] MEDS: ENOXAPARIN 40 MG/0.4 ML SYRINGE SUB-Q (08:52)
[2022-11-10] MEDS: metFORMIN HCL 500 MG TABLET PO ×2 (08:52→17:38)
--- NOTE | 2022-11-10 08:52 | PCOTNOTE ---
HOLD OT evaluation at this time- pt to have surgery today. Await new orders post op;
[2022-11-10 11:26] LABS: Glucose Point of Care 161 mg/dl (65-105)
--- NOTE | 2022-11-10 11:27 | PC.NURSE ---
Pt has fluids going KVO, spoke to provider and provider approved due to difficulty to gain IV access.
--- NOTE | 2022-11-10 11:56 | PM.PNGS ---
Progress Note: A&P Assessment and Plan (1) Diabetic foot ulcer: Qualifiers: Diabetes mellitus type: type 2 Diabetic foot ulcer location: midfoot Laterality: right Non-pressure ulcer stage: with necrosis of muscle Qualified Code(s): E11.621 - Type 2 diabetes mellitus with foot ulcer; L97.413 - Non-pressure chronic ulcer of right heel and midfoot with necrosis of muscle Code(s): E11.621 - Type 2 diabetes mellitus with foot ulcer; L97.509 - Non-pressure chronic ulcer of other part of unspecified foot with unspecified severity Status: Acute Assessment and Plan: Patient has elected to proceed with a right below-knee amputation after carefully considering his options of a prolonged course of chronic wound care for many months and at least 6 weeks of IV antibiotic therapy versus proceeding now with a right below-knee amputation hopefully with good healing of the wound he can proceed with getting a prosthetic limb for his right below-knee amputation. Because he is still uncontrolled diabetic poor healing of the BKA stump discussed and possible need for revision to a higher level of amputation with AKA amputation. To stand this issue. Risks, benefits, indications, and expected outcomes were discussed in detail with the patient and/or family. They understand and I have answered all other questions. They wished to proceed with surgery as outlined above. Subjective Subjective Date/Time Seen: 11/10/22 11:56 Interval history: Patient without acute changes. He has thought about elective his right foot over the weekend and I again went over the options of prolonged course of wound care and IV antibiotics to try to treat through the osteomyelitis and possibly salvage the right foot but when his rotations in social support and the fact that he is homeless it would be difficult. The other option of proceeding with a right below-knee amputation was again discussed which would likely accelerate his time course for healing and getting a prosthesis for this again ambulate again. He has decided to go ahead proceed with the right below-knee amputation. Exam Extrem: Other: Right foot with stable dry gangrene ulcer of the plantar lateral portion of the right foot. Erythema extending to the dorsal portion of the foot in the area. No abscess. Portions of dry and wet gangrene of the right 5th toe. Redness to the right metatarsophalangeal joint. His right leg remains warm down to the ankle. No wounds on the portion Of the right leg between the knee and the ankle. Objective Data Vital Signs Vital Signs: Vital Signs - 24 hr 11/09/22 14:00 11/09/22 20:56 11/09/22 20:00 Temperature 37.1 C 37.1 C Pulse Rate 73 100 Respiratory Rate 19 18 Blood Pressure 167/89 H 141/80 H Pulse Oximetry 100 99 Oxygen Delivery Room Air 11/10/22 06:00 11/10/22 08:51 Temperature 36.9 C Pulse Rate 87 Respiratory Rate 18 Blood Pressure 142/90 H Pulse Oximetry 97 Oxygen Delivery Room Air Intake/Output Intake/Output: Intake & Output 11/07/22 11/08/22 11/09/22 11/10/22 23:59 23:59 23:59 23:59 Intake Total 4130 5020 3300 786 Output Total 1725 1425 1470 3090 Balance 2405 2906 [id number] -[id number] Meds/Results Medications: Active Medications Generic Name Dose Route Start Last Admin Trade Name Freq PRN Reason Stop Dose Admin Acetaminophen 650 mg 11/07/22 03:04 Acetaminophen 325 Mg Tablet PO Q4H PRN Mild Pain (1-3) or Fever Hydrocodone Bitart/Acetaminophen 1 tab 11/07/22 03:04 Hydrocodone/Acetaminophen (*Crx) 5-325 Mg Tablet PO Q4H PRN Moderate Pain (4-6) Al Hydrox/Mg Hydrox/Simethicone 30 ml 11/07/22 03:04 Mag Hydrox/Al Hydrox/Simeth 30 Ml Udc PO QID PRN Dyspepsia Dextrose 12.5 gm 11/07/22 03:07 Dextrose 50% 25 Gm/50 Ml Syringe IV PUSH PRN PRN Hypoglycemia Protocol Enoxaparin Sodium 40 mg 11/07/22 09:00 11/10/22 08:52 Enoxapar
--- NOTE | 2022-11-10 13:37 | P.PNIM_ITS ---
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 Empirically restarted on his previous metronidazole, vancomycin and cefepime. * surgery consult and plan for right [id number]-hwbw amputation * wound consult * Foot x-ray revealing intra-articular fracture at the distal aspect of the fixed proximal phalanx, no evidence of osteomyelitis * MRI revealing osteomyelitis of the base of the 5th metatarsal with overlying soft tissue ulcer. No abscess. (2) Cellulitis of right foot: Code(s): L03.115 - Cellulitis of right lower limb Status: Acute Assessment and Plan: * Continue empiric antibiotics. Wound care. (3) Uncontrolled diabetes mellitus: Qualifiers: Diabetes mellitus type: type 2 Glycemic state: with hyperglycemia Qualified Code(s): E11.65 - Type 2 diabetes mellitus with hyperglycemia Code(s): E11.65 - Type 2 diabetes mellitus with hyperglycemia Status: Acute Assessment and Plan: * On review of previous notes, patient had hemoglobin A1c of over 11 during last admission. * Was supposed to be on insulin however is homeless and unsure about compliance. * Will need strict blood sugar control for proper wound healing. Resume insulin. * health promotion educator consulted on patient. (4) HTN (hypertension): Code(s): I10 - Essential (primary) hypertension Status: Acute Assessment and Plan: * Patient with history of hypertension however due to social circumstances is not taking any medications currently. * Ideally should be on QUANG-inhibitor for his diabetes. Start lisinopril- urinalysis in past has shown proteinuria already (5) Polysubstance abuse: Code(s): F19.10 - Other psychoactive substance abuse, uncomplicated Status: Acute Assessment and Plan: * Admits to half a pack of tobacco daily as well as methamphetamine use. Advised to quit. (6) Homeless: Code(s): Z59.00 - Homelessness unspecified Status: Acute Assessment and Plan: * Patient says his son and daughter have no room for him. * manager of internal consult for placement Plan Wants his daughter to be POA Wants to be DNR/DNI Subjective Date/time seen: 11/10/22 13:37 Interval history: Patient doing well today with no new complaints. He scheduled for a abheu-hmt-ofon amputation on 11/11/2022. Review of Systems Review of Systems: All systems reviewed & are unremarkable except as noted in HPI and below Exam Narrative: GENERAL: Comfortable, no acute distress HENMT: moist mucous membranes EYES: EOM intact b/l NECK: no lymphadenopathy RESPIRATORY: clear to auscultation CARDIO: RRR GI: soft, nontender, bowel sounds present SKIN: no rashes EXTREMITIES: Below-
--- NOTE | 2022-11-10 13:37 | PM.IMPN ---
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 Empirically restarted on his previous metronidazole, vancomycin and cefepime. surgery consult and plan for right hmqkb-jah-utsh amputation wound consult Foot x-ray revealing intra-articular fracture at the distal aspect of the fixed proximal phalanx, no evidence of osteomyelitis MRI revealing osteomyelitis of the base of the 5th metatarsal with overlying soft tissue ulcer. No abscess. (2) Cellulitis of right foot: Code(s): L03.115 - Cellulitis of right lower limb Status: Acute Assessment and Plan: Continue empiric antibiotics. Wound care. (3) Uncontrolled diabetes mellitus: Qualifiers: Diabetes mellitus type: type 2 Glycemic state: with hyperglycemia Qualified Code(s): E11.65 - Type 2 diabetes mellitus with hyperglycemia Code(s): E11.65 - Type 2 diabetes mellitus with hyperglycemia Status: Acute Assessment and Plan: On review of previous notes, patient had hemoglobin A1c of over 11 during last admission. Was supposed to be on insulin however is homeless and unsure about compliance. Will need strict blood sugar control for proper wound healing. Resume insulin. certified breastfeeding educator consulted on patient. (4) HTN (hypertension): Code(s): I10 - Essential (primary) hypertension Status: Acute Assessment and Plan: Patient with history of hypertension however due to social circumstances is not taking any medications currently. Ideally should be on QUANG-inhibitor for his diabetes. Start lisinopril-urinalysis in past has shown proteinuria already (5) Polysubstance abuse: Code(s): F19.10 - Other psychoactive substance abuse, uncomplicated Status: Acute Assessment and Plan: Admits to half a pack of tobacco daily as well as methamphetamine use. Advised to quit. (6) Homeless: Code(s): Z59.00 - Homelessness unspecified Status: Acute Assessment and Plan: Patient says his son and daughter have no room for him. forms analysis manager consult for placement Plan Wants his daughter to be POA Wants to be DNR/DNI Subjective Date/time seen: 11/10/22 13:37 Interval history: Patient doing well today with no new complaints. He scheduled for a uqwtp-oax-cnxd amputation on 11/11/2022. Review of Systems Review of Systems: All systems reviewed & are unremarkable except as noted in HPI and below Exam Narrative: GENERAL: Comfortable, no acute distress HENMT: moist mucous membranes EYES: EOM intact b/l NECK: no lymphadenopathy RESPIRATORY: clear to auscultation CARDIO: RRR GI: soft, nontender, bowel sounds present SKIN: no rashes EXTREMITIES: Zjekg-ant-wcqu amputation on left leg; bandage over left foot dry Objective Data Vital Signs Vital Signs: Vital Signs - 24 hr 11/09/22 14:00 11/09/22 20:56 11/09/22 20:00 Temperature 98.7 F 98.7 F Pulse Rate 73 100 Respiratory Rate 19 18 Blood Pressure 167/89 H 141/80 H Pulse Oximetry 100 99 Oxygen Delivery Room Air 11/10/22 06:00 11/10/22 08:51 Temperature 98.4 F Pulse Rate 87 Respiratory Rate 18 Blood Pressure 142/90 H Pulse Oximetry 97 Oxygen Delivery Room Air Intake/Output
[2022-11-10 14:00] VITALS: BP 148/90; PULSE 94; RESP 16; TEMP 36; O2SAT 99
[2022-11-10 16:53] LABS: Glucose Point of Care 161 mg/dl (65-105)
[2022-11-10] MEDS: INSULIN ASPART (*BKC) 100 UNITS/ML SUB-Q (17:38)
--- NOTE | 2022-11-10 19:41 | PC.NURSE ---
Pt is going for Right [facility]. Pt wants daughter to be primary contact instead of son. Admitting was called and stated that it is already set up that way. Pt has consent signed for blood and surgery. Pt has reported no pain and expresses no needs at this time. Pt received IV antibiotics and tolerated well. Pt dressing change was done and purulent drainage was noted from foot ulcer and 5th toe. Pt was monitored for any changes in status.
[2022-11-10 20:15] LABS: Glucose Point of Care 209 mg/dl (65-105)
[2022-11-10] MEDS: INSULIN GLARGINE (*BKC) 100 UNITS/ML 15 UNITS SUB-Q (21:20)
[2022-11-10 22:00] VITALS: BP 117/65; PULSE 95; RESP 16; TEMP 36.9; O2SAT 97
[2022-11-11] VITALS (12 sets, daily range): BP systolic 131–159; BP diastolic 80–109; PULSE 92–114; RESP 14–20; TEMP 36.1–37.3; O2SAT 93–98
[2022-11-11] MEDS: metroNIDAZOLE 500 MG/ISO 100ML 500 MG/100 ML BAG 100 MG IVPB ×3 (02:16→20:17)
[2022-11-11] MEDS: CEFEPIME 2 GM/NS 50 ML 2 GM/50 ML BAG IVPB (03:33)
[2022-11-11] MEDS: VANCOMYCIN 1,250 MG/NS 250 ML 1,250 MG/250 ML BAG 166 MG IVPB (04:37)
[2022-11-11 06:14] LABS: Basophils Absolute Auto 0.1 K/mm3 (0.0-0.1); Basophils Percent Auto 0.7 % (0.2-1.2); Eosinophils Absolute Auto 0.2 K/mm3 (0-0.3); Eosinophils Percent Auto 2.3 % (0-4.4); Hematocrit 33.6 % (42.0-52.0); Immature Granulocyte Absolute 0.03 K/mm3 (0.00-0.031); Immature Granulocyte Percent A 0.4 % (0-0.5); Lymphocytes Absolute Auto 1.26 K/mm3 (0.9-3.2); Mean Corpuscular HGB Conc 32.7 g/dl (32-36); Mean Corpuscular Hemoglobin 28.6 pg (26-34); Mean Corpuscular Volume 87.3 fl (80-100); Mean Platelet Volume 9.8 fl (7.4-10.4); Monocytes Absolute Auto 0.6 K/mm3 (0.1-0.6); Monocytes Percent Auto 7.9 % (2.6-8.5); Neutrophils Percent Auto 70.7 % (45.5-73.1); Platelet Count Result 302 k/mm3 (150-375); Red Blood Count 3.85 M/mm3 (4.6-6.20); Red Cell Distribution Width 12.2 % (11.5-14.5)
[2022-11-11 06:25] LABS: Alanine Aminotransferase 25 U/L (6-50); Albumin Level 3.2 g/dL (3.5-5.1); Alkaline Phosphatase 96 U/L (38-126); Anion Gap 5 mmol/L (8-16); Aspartate Amino Transferase 54 U/L (17-59); Bilirubin,Total 0.3 mg/dL (0.2-1.3); Blood Urea Nitrogen 17 mg/dL (9-20); Calcium 8.5 mg/dL (8.4-10.2); Carbon Dioxide 30 mmol/L (22-30); Chloride 100 mmol/L (98-107); Estimated CRCL calculation 86 ml/min; Estimated Glomerular Filt Rate > 60; Glucose 149 mg/dL (65-110); Potassium 4.1 mmol/L (3.4-5.0); Sodium 135 mmol/L (137-145)
[2022-11-11 08:03] LABS: Glucose Point of Care 148 mg/dl (65-105)
--- NOTE | 2022-11-11 10:06 | PCPTNOTE ---
Spoke with referring hospitalistFABRICIO to DC PT orders at this time due to surgical procedures this afternoon and needing Surgeon's recommendations. Will await for new PT orders when pt is medically stable.
--- NOTE | 2022-11-11 11:39 | WPDANESEPPF ---
Anes - Initial Pre Proc Eval Procedure: Operation Date: 11/11/22 12:30 Proposed Procedures p Right Below Knee Amputation - Nam Kellogg MD Date/Time: 11/11/22 11:39 Surgeon: Jose Jefferson MD Pre Op Diagnosis: Diabetic Foot wound R 5th toe,Diabetic Ulcer,Hypon Patient Data Age: 67 Gender: M Height: 1.85 m Weight: 76.8 kg Last Vital Signs Temp 99.2 F 11/11/22 11:15 Pulse 92 11/11/22 11:15 Resp 18 11/11/22 11:15 BP 139/84 11/11/22 11:15 Pulse Ox 98 11/11/22 11:15 O2 Del Method Room Air 11/11/22 11:15 Allergies Allergy/AdvReac Type Severity Reaction Status Date / Time No Known Allergies Allergy Mild Verified 11/07/22 04:02 Home Medications Medication Instructions Recorded Confirmed Type metformin 500 mg tablet 500 mg PO BID 11/07/22 11/07/22 History Laboratory Tests 11/10/22 11/10/22 11/11/22 16:49 19:59 05:43 WBC 7.0 K/mm3 (4.5-10.0) RBC 3.85 L M/mm3 (4.6-6.20) Hgb 11.0 L g/dL (14.0-18.0) Hct 33.6 L % (42.0-52.0) MCV 87.3 fl (80-100) MCH 28.6 pg (26-34) MCHC 32.7 g/dl (32-36) RDW 12.2 % (11.5-14.5) Plt Count 302 k/mm3 (150-375) MPV 9.8 fl (7.4-10.4) Immature Gran % (Auto) 0.4 % (0-0.5) Neut % (Auto) 70.7 % (45.5-73.1) Lymph % (Auto) 18.0 L % (18.3-44.2) [place] % (Auto) 7.9 % (2.6-8.5) Eos % (Auto) 2.3 % (0-4.4) Baso % (Auto) 0.7 % (0.2-1.2) Lymph # (Auto) 1.26 K/mm3 (0.9-3.2) [place] # (Auto) 0.6 K/mm3 (0.1-0.6) Eos # (Auto) 0.2 K/mm3 (0-0.3) Baso # (Auto) 0.1 K/mm3 (0.0-0.1) Abs Immat Gran (auto) 0.03 K/mm3 (0.00-0.031) Absolute Neuts (auto) 5.0 K/mm3 (1.3-6.7) Absolute Nucleated RBC 0.0 K/mm3 (0.0-0.012) Nucleated RBC % 0.0 % (0.0-0.2) Sodium 135 L mmol/L (137-145) Potassium 4.1 mmol/L (3.4-5.0) Chloride 100 mmol/L (98-107) Carbon Dioxide 30 mmol/L (22-30) Anion Gap 5 L mmol/L (8-16) BUN 17 mg/dL (9-20) Creatinine 0.80 mg/dL (0.7-1.3) Estim Creat Clear Calc 86 ml/min Estimated GFR > 60 (59 - ) Glucose 149 H mg/dL (65-110) POC Capillary Glucose 161 H mg/dl 209 H mg/dl (65-105) (65-105) Calcium 8.5 mg/dL (8.4-10.2) Total Bilirubin 0.3 mg/dL (0.2-1.3) AST 54 U/L (17-59) ALT 25 U/L (6-50) Alkaline Phosphatase 96 U/L (38-126) Total Protein 7.0 g/dL (6.3-8.2) Albumin 3.2 L g/dL (3.5-5.1) 11/11/22 07:52 WBC RBC Hgb Hct MCV MCH MCHC RDW Plt Count MPV Immature Gran % (Auto) Neut % (Auto) Lymph % (Auto) [place] % (Auto) Eos % (Auto) Baso % (Auto) Lymph # (Auto) [place] # (Auto) Eos # (Auto) Baso # (Auto) Abs Immat Gran (auto) Absolute Neuts (auto) Absolute Nucleated RBC Nucleated RBC % Sodium Potassium Chloride Carbon Dioxide Anion Gap BUN Creatinine Estim Creat Clear Calc Estimated GFR Glucose POC Capillary Glucose 148 H mg/dl (65-105) Calcium Total Bilirubin AST ALT Alkaline Phosphatase Total Protein Albumin Patient hx anesthesia problems: none Family hx anesthesia problems: none Results Review: All pre-operative results and documents have been reviewed as part of the pre-operative evaluation. [facility] Past Medical History Medical History Anxiety Depression Diabetic retinopathy Gastroesophageal reflux disease Hepatitis C Hyperlipidemia Hypert
[2022-11-11 11:53] LABS: Glucose Point of Care 135 mg/dl (65-105)
--- NOTE | 2022-11-11 12:06 | WPDHPUPDATE1 ---
History and Physical Update Update Date/Time: 11/11/22 12:06 History and Physical has been reviewed, including an updated exam of the patient. There are NO changes in the patient's condition. Risks, benefits, and alternatives have been discussed and questions answered. Patient agrees to proceed with procedure.
--- NOTE | 2022-11-11 14:28 | SUR.OPER ---
Specimen sent with RADHA Addison and received in pathology by
--- NOTE | 2022-11-11 15:12 | P.PNIM_ITS ---
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 Empirically restarted on his previous metronidazole, vancomycin and cefepime. * surgery consult and plan for right upqes-jwf-vswd amputation 11/11/22 * wound consult * Foot x-ray revealing intra-articular fracture at the distal aspect of the fixed proximal phalanx, no evidence of osteomyelitis * MRI revealing osteomyelitis of the base of the 5th metatarsal with overlying soft tissue ulcer. No abscess. (2) Cellulitis of right foot: Code(s): L03.115 - Cellulitis of right lower limb Status: Acute Assessment and Plan: * Continue empiric antibiotics. Wound care. (3) Osteomyelitis: Code(s): M86.9 - Osteomyelitis, unspecified Status: Acute Assessment and Plan: Patient undergoing BTK amputation. Discussed with [facility] pharm and they stated he will likely need 4 days of antibiotics after surgery (4) Uncontrolled diabetes mellitus: Qualifiers: Diabetes mellitus type: type 2 Glycemic state: with hyperglycemia Qualified Code(s): E11.65 - Type 2 diabetes mellitus with hyperglycemia Code(s): E11.65 - Type 2 diabetes mellitus with hyperglycemia Status: Acute Assessment and Plan: * On review of previous notes, patient had hemoglobin A1c of over 11 during last admission. * Was supposed to be on insulin however is homeless and unsure about compliance. * Will need strict blood sugar control for proper wound healing. Resume insulin. * echocardiograph tech consulted on patient. (5) HTN (hypertension): Code(s): I10 - Essential (primary) hypertension Status: Acute Assessment and Plan: * Patient with history of hypertension however due to social circumstances is not taking any medications currently. * Ideally should be on QUANG-inhibitor for his diabetes. Start lisinopril- urinalysis in past has shown proteinuria already (6) Polysubstance abuse: Code(s): F19.10 - Other psychoactive substance abuse, uncomplicated Status: Acute Assessment and Plan: * Admits to half a pack of tobacco daily as well as methamphetamine use. Advised to quit. (7) Homeless: Code(s): Z59.00 - Homelessness unspecified Status: Acute Assessment and Plan: * Patient says his son and daughter have no room for him. * technical manager consult for placement Plan Wants his daughter to be POA Wants to be DNR/DNI Subjective Date/time seen: 11/11/22 15:12 Interval history: Patient undergoing right yzamt-nfv-kzem amputation this afternoon. When seeing patient he had no new complaints. Review of Systems Review of Systems: All systems reviewed & are unremarkable except as noted in HPI and below Exam N
--- NOTE | 2022-11-11 15:12 | PM.IMPN ---
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 Empirically restarted on his previous metronidazole, vancomycin and cefepime. surgery consult and plan for right zmovf-vgq-ejcj amputation 11/11/22 wound consult Foot x-ray revealing intra-articular fracture at the distal aspect of the fixed proximal phalanx, no evidence of osteomyelitis MRI revealing osteomyelitis of the base of the 5th metatarsal with overlying soft tissue ulcer. No abscess. (2) Cellulitis of right foot: Code(s): L03.115 - Cellulitis of right lower limb Status: Acute Assessment and Plan: Continue empiric antibiotics. Wound care. (3) Osteomyelitis: Code(s): M86.9 - Osteomyelitis, unspecified Status: Acute Assessment and Plan: Patient undergoing BTK amputation. Discussed with [facility] pharm and they stated he will likely need 4 days of antibiotics after surgery (4) Uncontrolled diabetes mellitus: Qualifiers: Diabetes mellitus type: type 2 Glycemic state: with hyperglycemia Qualified Code(s): E11.65 - Type 2 diabetes mellitus with hyperglycemia Code(s): E11.65 - Type 2 diabetes mellitus with hyperglycemia Status: Acute Assessment and Plan: On review of previous notes, patient had hemoglobin A1c of over 11 during last admission. Was supposed to be on insulin however is homeless and unsure about compliance. Will need strict blood sugar control for proper wound healing. Resume insulin. ict educator consulted on patient. (5) HTN (hypertension): Code(s): I10 - Essential (primary) hypertension Status: Acute Assessment and Plan: Patient with history of hypertension however due to social circumstances is not taking any medications currently. Ideally should be on QUANG-inhibitor for his diabetes. Start lisinopril-urinalysis in past has shown proteinuria already (6) Polysubstance abuse: Code(s): F19.10 - Other psychoactive substance abuse, uncomplicated Status: Acute Assessment and Plan: Admits to half a pack of tobacco daily as well as methamphetamine use. Advised to quit. (7) Homeless: Code(s): Z59.00 - Homelessness unspecified Status: Acute Assessment and Plan: Patient says his son and daughter have no room for him. administrative office manager consult for placement Plan Wants his daughter to be POA Wants to be DNR/DNI Subjective Date/time seen: 11/11/22 15:12 Interval history: Patient undergoing right olzof-pol-lthu amputation this afternoon. When seeing patient he had no new complaints. Review of Systems Review of Systems: All systems reviewed & are unremarkable except as noted in HPI and below Exam Narrative: GENERAL: Comfortable, no acute distress HENMT: moist mucous membranes EYES: EOM intact b/l NECK: no lymphadenopathy RESPIRATORY: clear to auscultation CARDIO: RRR GI: soft, nontender, bowel sounds present SKIN: no rashes EXTREMITIES: Iukvw-jzu-mkfm amputation on left leg; bandage over left foot dry Objective Data Vital Signs Vital Signs: Vital Signs - 24 hr 11/10/22 22:00 11/10/22 20:00 11/11/22 06:00 Temperature 98.4 F 96.9 F L Pulse Rate 95 92 Respiratory Rate 16 16 Bloo
--- NOTE | 2022-11-11 15:49 | SUR.OPER ---
EBL:200ml, URINE:300
[2022-11-11] MEDS: LACTATED RINGERS 1,000 ML 30 ML IV CONT ×2 (15:58)
[2022-11-11] MEDS: fentaNYL CITRATE INJ (*CRX) 100 MCG/2 ML VIAL 25 MCG IV PUSH ×4 (16:18→16:40)
[2022-11-11 16:36] LABS: Glucose Point of Care 166 mg/dl (65-105)
--- NOTE | 2022-11-11 16:51 | W.PM.PROC2 ---
Procedure Note - Detailed Date of Procedure 11/11/22 Pre-op Diagnosis Diabetic Foot wound R 5th toe,Diabetic Ulcer, Osteomyelitis right foot Post-op Diagnosis Same Procedure Performed Right below-knee amputation Surgeon Nam Kellogg MD Anesthesia General Indications patient is a 7-year-old uncontrolled diabetic who has had chronic plantar ulcer the mid right foot for quite some time. Now developed gangrene and osteomyelitis of the right 5th toe. His social situation long-term wound care and long-term IV antibiotics are logistically going to be very difficult because he is homeless. I discussed with him the options of longstanding chronic wound care and attempt at limb salvage versus proceeding with a right below-knee amputation. He has opted to proceed with a right below-knee amputation. Findings None significant Description of Procedure after informed consent was obtained patient brought to the operating room placed supine position and general endotracheal anesthesia was administered. A Maddox catheter was placed decompress the bladder and then the right lower extremity from the midthigh to the ankle was then prepped and draped circumferentially in usual sterile fashion. A time-out was then performed correctly identifying the patient as well as procedure to be performed verifying the site marking. He was already on scheduled IV antibiotics. I then marked out the place of bone division was about 15cm distal to the right tibial tuberosity. I then manan out on the skin the posterior muscular cutaneous flap. I then had the tourniquet turned on to 200 none meters of mercury. I then made an incision along my marked line and dissected down through the skin with the scalpel. Because the tourniquet was on there was initially not much bleeding. I continued my dissection down through the muscle with the knife sharply until I reached the tibia. I then dissected the muscle off of the tibia and then used a periosteal elevator to dissect directly down onto the bone. Once I circumferentially dissected out the tibia I then used a oscillating bone saw to divide the tibia about 15cm distal to the right tibial tuberosity. I then dissected the muscle sharply off of the right fibula and again used the past elevator to scrape off the muscle and periosteum proximal to the end of the tibia on the fibula. At this point I then divided the fibula with a bone cutter about 2 to 3 cm proximal to the end of the tibia. Then utilizing the amputation knife I divided the posterior calf muscles and then the right lower extremity was sent to pathology. I then ligated the major neurovascular bundles utilizing 2-0 Vicryl stick ties. I then let down the tourniquet and then proceeded to ligate muscular branches of the arteries utilizing a 2-0 silk Vicryl stick ties. I then cut away some of the excess muscle from the posterior flap use sharply with a scalpel. I then achieved hemostasis with further placement of 2-0 silk stick ties and electrocautery. The posterior flap was well vascularized. I then rounded off the sharper edges on the end of the tibia with a rasp and then placed lacks onto the end of the tibia in the marrow space. I then proceeded to close the incision for placement of a 10 [place] Island[place] flat GUME drain into the wound and brought out laterally through the skin and secured in place with 3-0 nylon suture. The muscular cutaneous flap was then folded over the drained and then over the end of the tibia. Interrupted 2-0 Vicryl sutures were used to approximate the fascia. Another layer of interrupted 2-0 Vicryl sutures were used to close the subcutaneous tissues. The skin edges were then approximated utilizing interrupted 3-0 nylon sutures placed in vertical mattress fashion. Incision line and the posterior flap was viable without any evidence of ischemia. I then irrigated and cleaned the wound and then placed a drain to active Crohn able suction. We then placed Xeroform gau
[2022-11-11] MEDS: metFORMIN HCL 500 MG TABLET PO (17:14)
[2022-11-11] MEDS: VANCOMYCIN 1,250 MG/NS 250 ML 1,250 MG/250 ML BAG 167 MG IVPB (17:14)
[2022-11-11] MEDS: INSULIN ASPART (*BKC) 100 UNITS/ML SUB-Q (17:33)
[2022-11-11] MEDS: oxyCODONE HCL (*CRX) 5 MG TAB IR PO (18:41)
[2022-11-11] MEDS: HYDROmorphone HCL INJ (*CRX) 1 MG/ML SYR IV PUSH ×2 (19:36→23:36)
--- NOTE | 2022-11-11 19:56 | PC.NURSE ---
Patient missed a dose at 16:00 on 11/11/2022. Called pharmacist and spoke with the Hailee and adjusted the medication scheduled to begin again at 20:00
[2022-11-11] MEDS: INSULIN GLARGINE (*BKC) 100 UNITS/ML 15 UNITS SUB-Q (20:31)
[2022-11-11 22:19] LABS: Glucose Point of Care 247 mg/dl (65-105)
[2022-11-12 00:22] VITALS: BP 144/86; PULSE 102; RESP 18; TEMP 36.1; O2SAT 98
[2022-11-12] MEDS: CEFEPIME 2 GM/NS 50 ML 2 GM/50 ML BAG IVPB (01:13)
[2022-11-12] MEDS: oxyCODONE HCL (*CRX) 5 MG TAB IR PO ×3 (02:38→17:46)
[2022-11-12] MEDS: metroNIDAZOLE 500 MG/ISO 100ML 500 MG/100 ML BAG 100 MG IVPB (03:00)
[2022-11-12] MEDS: SODIUM CHLORIDE 0.9% IV 1,000 ML 100 ML IV CONT (03:00)
[2022-11-12] MEDS: VANCOMYCIN 1,250 MG/NS 250 ML 1,250 MG/250 ML BAG 167 MG IVPB (04:57)
[2022-11-12 05:49] VITALS: BP 148/96; PULSE 99; RESP 16; TEMP 36.1; O2SAT 97
[2022-11-12 06:29] LABS: Hematocrit 30.3 % (42.0-52.0); Mean Corpuscular Hemoglobin 28.2 pg (26-34); Mean Corpuscular Volume 85.6 fl (80-100); Mean Platelet Volume 9.9 fl (7.4-10.4); Platelet Count Result 350 k/mm3 (150-375); Red Blood Count 3.54 M/mm3 (4.6-6.20); Red Cell Distribution Width 12.1 % (11.5-14.5); White Blood Count 9.5 K/mm3 (4.5-10.0)
[2022-11-12 06:40] LABS: Anion Gap 6 mmol/L (8-16); Blood Urea Nitrogen 19 mg/dL (9-20); Calcium 8.4 mg/dL (8.4-10.2); Carbon Dioxide 29 mmol/L (22-30); Chloride 98 mmol/L (98-107); Estimated CRCL calculation 86 ml/min; Estimated Glomerular Filt Rate > 60; Glucose 180 mg/dL (65-110); Potassium 4.1 mmol/L (3.4-5.0); Sodium 133 mmol/L (137-145)
[2022-11-12] MEDS: HYDROmorphone HCL INJ (*CRX) 1 MG/ML SYR IV PUSH ×4 (07:51→20:24)
[2022-11-12 07:53] LABS: Glucose Point of Care 154 mg/dl (65-105)
[2022-11-12] MEDS: ENOXAPARIN 40 MG/0.4 ML SYRINGE SUB-Q (07:56)
[2022-11-12] MEDS: metFORMIN HCL 500 MG TABLET PO ×2 (07:56→17:50)
[2022-11-12 08:00] VITALS: BP 141/86; PULSE 97; RESP 12; TEMP 36; O2SAT 96
--- NOTE | 2022-11-12 08:39 | PCPTNOTE ---
Attempted PT evaluation, patient refused due to pain. RN aware. Will follow.
--- NOTE | 2022-11-12 10:05 | WPDANESPN ---
Anes - Prog Note Post-Op Date/Time: 11/12/22 10:05 Cardiovascular status: normal Respiratory status: normal Airway patency: baseline Mental status: baseline Post-Op hydration status: normal Vital Signs: Last Vital Signs Temp 96.8 F L 11/12/22 08:00 Pulse 97 11/12/22 08:00 Resp 12 11/12/22 08:00 BP 141/86 H 11/12/22 08:00 Pulse Ox 96 11/12/22 08:00 O2 Del Method Room Air 11/11/22 20:00 O2 Flow Rate 8 11/11/22 15:58 Pain Score (VAS): 0/10 I/O: Intake & Output 11/11/22 11/12/22 11/12/22 23:59 07:59 15:59 Intake Total 2080 600 Output Total 950 1045 Balance 1130 -1045 600 Laboratory Tests 11/12/22 05:44 11/12/22 05:44 11/11/22 11/11/22 11/11/22 11:49 16:33 20:23 WBC RBC Hgb Hct MCV MCH MCHC RDW Plt Count MPV Sodium Potassium Chloride Carbon Dioxide Anion Gap BUN Creatinine Estim Creat Clear Calc Estimated GFR Glucose POC Capillary Glucose 135 H 166 H 247 H Calcium 11/12/22 11/12/22 05:44 07:42 WBC 9.5 RBC 3.54 L Hgb 10.0 L Hct 30.3 L MCV 85.6 MCH 28.2 MCHC 33.0 RDW 12.1 Plt Count 350 MPV 9.9 Sodium 133 L Potassium 4.1 Chloride 98 Carbon Dioxide 29 Anion Gap 6 L BUN 19 Creatinine 0.80 Estim Creat Clear Calc 86 Estimated GFR > 60 Glucose 180 H POC Capillary Glucose 154 H Calcium 8.4 Microbiology 11/06/22 23:43 Blood Blood Culture - Final 11/07/22 00:10 Blood Blood Culture - Final Post-procedural complaints: none Patient Feedback: Patient satisfied with anesthetic care.
--- NOTE | 2022-11-12 11:15 | PM.IMPN ---
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 Empirically restarted on his previous metronidazole, vancomycin and cefepime. surgery consult and plan for right musde-xoc-ssom amputation 11/11/22 wound consult Foot x-ray revealing intra-articular fracture at the distal aspect of the fixed proximal phalanx, no evidence of osteomyelitis MRI revealing osteomyelitis of the base of the 5th metatarsal with overlying soft tissue ulcer. No abscess. (2) Cellulitis of right foot: Code(s): L03.115 - Cellulitis of right lower limb Status: Acute Assessment and Plan: Continue empiric antibiotics. Wound care. (3) Osteomyelitis: Qualifiers: Osteomyelitis type: acute hematogenous Osteomyelitis location: foot Laterality: right Qualified Code(s): M86.071 - Acute hematogenous osteomyelitis, right ankle and foot Code(s): M86.9 - Osteomyelitis, unspecified Status: Acute Assessment and Plan: Patient undergoing BTK amputation. Discussed with [facility] and they stated he will likely need 4 days of antibiotics after surgery (4) Uncontrolled diabetes mellitus: Qualifiers: Diabetes mellitus type: type 2 Glycemic state: with hyperglycemia Qualified Code(s): E11.65 - Type 2 diabetes mellitus with hyperglycemia Code(s): E11.65 - Type 2 diabetes mellitus with hyperglycemia Status: Acute Assessment and Plan: On review of previous notes, patient had hemoglobin A1c of over 11 during last admission. Was supposed to be on insulin however is homeless and unsure about compliance. Will need strict blood sugar control for proper wound healing. Resume insulin. community educator consulted on patient. (5) HTN (hypertension): Qualifiers: Hypertension type: primary hypertension Qualified Code(s): I10 - Essential (primary) hypertension Code(s): I10 - Essential (primary) hypertension Status: Acute Assessment and Plan: Patient with history of hypertension however due to social circumstances is not taking any medications currently. Ideally should be on QUANG-inhibitor for his diabetes. Start lisinopril-urinalysis in past has shown proteinuria already (6) Polysubstance abuse: Code(s): F19.10 - Other psychoactive substance abuse, uncomplicated Status: Acute Assessment and Plan: Admits to half a pack of tobacco daily as well as methamphetamine use. Advised to quit. (7) Homeless: Code(s): Z59.00 - Homelessness unspecified Status: Acute Assessment and Plan: Patient says his son and daughter have no room for him. sales analytics manager consult for placement (8) Depression: Qualifiers: Depression Type: major depressive disorder Major depression recurrence: unspecified whether recurrent Active/Remission status: currently active Major depression episode severity: unspecified Qualified Code(s): F32.9 - Major depressive disorder, single episode, unspecified Code(s): F32.9 - Major depressive disorder, single episode, unspecified Status: Acute Assessment and Plan: Start zoloft see if this helps Plan Wants his daughter to be POA Wants to
--- NOTE | 2022-11-12 11:26 | PM.PNGS ---
Progress Note: A&P Assessment and Plan (1) Osteomyelitis: Code(s): M86.9 - Osteomyelitis, unspecified Status: Acute Assessment and Plan: Osteomyelitis of the right foot. Now resolved with right below-knee amputation. Continue routine wound management and therapy. The GUME drain in place for today. We will check hemoglobin level tomorrow. Remove Maddox catheter today. Subjective Subjective Date/Time Seen: 11/12/22 11:26 Post Op day: 1 (Status post right BKA) Interval history: Patient is sitting up in chair today. Pain is well controlled on oral pain medications. Therapy states that he was able to transfer to chair fairly well with his left leg prosthetic. Maddox catheter remains in place and draining clear urine. Exam Extrem: Other: Right BKA stump wound dressed. Drain with some sanguinous output but not pure blood. Dressing is dry. He is able to fully extend his right leg at the knee. Objective Data Vital Signs Vital Signs: Vital Signs - 24 hr 11/11/22 15:58 11/11/22 16:05 11/11/22 16:20 Temperature 36.4 C Pulse Rate 114 H 113 H 103 H Respiratory Rate 17 20 20 Blood Pressure 153/88 H 131/80 149/87 H Pulse Oximetry 97 93 94 Oxygen Delivery Simple Face Mask Room Air Room Air Oxygen Flow Rate 8 11/11/22 16:35 11/11/22 16:50 11/11/22 17:02 Temperature Pulse Rate 101 H 97 96 Respiratory Rate 16 16 14 Blood Pressure 147/83 H 152/83 H 152/87 H Pulse Oximetry 93 94 94 Oxygen Delivery Room Air Room Air Room Air Oxygen Flow Rate 11/11/22 17:30 11/11/22 17:45 11/11/22 18:15 Temperature 36.2 C L 36.1 C L 36.1 C L Pulse Rate 96 95 95 Respiratory Rate 16 18 16 Blood Pressure 152/102 H 153/94 H 156/109 H Pulse Oximetry 96 98 96 Oxygen Delivery Oxygen Flow Rate 11/11/22 19:35 11/11/22 20:00 11/12/22 00:22 Temperature 36.3 C L 36.1 C L Pulse Rate 99 102 H Respiratory Rate 18 18 Blood Pressure 159/107 H 144/86 H Pulse Oximetry 96 98 Oxygen Delivery Room Air Oxygen Flow Rate 11/12/22 05:49 11/12/22 08:00 11/12/22 08:00 Temperature 36.1 C L 36.0 C L Pulse Rate 99 97 Respiratory Rate 16 12 Blood Pressure 148/96 H 141/86 H Pulse Oximetry 97 96 Oxygen Delivery Room Air Oxygen Flow Rate 11/12/22 11:07 Temperature Pulse Rate Respiratory Rate Blood Pressure Pulse Oximetry Oxygen Delivery Room Air Oxygen Flow Rate Intake/Output Intake/Output: Intake & Output 11/09/22 11/10/22 11/11/22 11/12/22 23:59 23:59 23:59 23:59 Intake Total 3300 1426 2630 600 Output Total 1470 3615 1900 1045 Balance 2635 -4736 358 -779 Meds/Results Medications: Active Medications Generic Name Dose Route Start Last Admin Trade Name Freq PRN Reason Stop Dose Admin Acetaminophen 650 mg 11/07/22 03:04 Acetaminophen 325 Mg Tablet PO Q4H PRN Mild Pain (1-3) or Fever Al Hydrox/Mg Hydrox/Simethicone 30 ml 11/07/22 03:04 Mag Hydrox/Al Hydrox/Simeth 30 Ml Udc PO QID PRN Dyspepsia Dextrose 12.5 gm 11/07/22 03:07 Dextrose 50% 25 Gm/50 Ml Syringe IV PUSH PRN PRN Hypoglycemia Protocol Enoxaparin Sodium 40 mg 11/07/22 09:00 11/12/22 07:56 Enoxaparin 40 Mg/0.4 Ml Syringe SUB-Q 40 mg DAILY OMI Administration Glucagon 1 mg 11/07/22 03:07 Glucagon For Inj 1 Mg Vial IM PRN PRN Hypoglycemia Protocol Glucose 15 gm 11/07/22 03:07 Glucose Oral Gel 15 Gm Of Glucse In 37.5 Gm Tube PO PRN PRN Hypoglycemia Protocol Hydromorphone HCl 1 mg 11/11/22 17:05 11/12/22 07:51 Hydromorphone Hcl Inj (*Crx) 1 Mg/Ml Syr IV PUSH 1 mg Q4H PRN Administration Pain Rated 7-10 Cefepime HCl 2 gm in 50 mls @ 100 mls/hr 11/07/22 14:00 11/12/22 01:13 Maxipime 2 Gm/Ns 50 Ml IVPB 100 mls/hr Q12H OMI Administration Vancomycin HCl 1,250 mg in 250 mls @ 166.667 mls/hr 11/07/22 17:00 11/12/22 04:57 Vancomycin 1,250 Mg/Ns 250 Ml IVPB 167 mls/hr
[2022-11-12 11:32] LABS: Glucose Point of Care 209 mg/dl (65-105)
[2022-11-12] MEDS: INSULIN ASPART (*BKC) 100 UNITS/ML SUB-Q ×2 (11:54→11:56)
[2022-11-12 12:00] VITALS: BP 135/73; PULSE 99; RESP 12; TEMP 37; O2SAT 96
--- NOTE | 2022-11-12 12:51 | PCPTNOTE ---
On 11/12/22, the student, [Lavonne Mcrae], provided care and completed [facility] documentation on this patient. I have reviewed the student's documentation and agree with the findings.
--- NOTE | 2022-11-12 13:38 | PCNFU ---
Nutrition Follow-Up Complete: Severe protein calorie malnutrition related to chronic illness, social cause of homelessness as evidenced by intake <75% needs >1 month; weight loss -8.5%/1 month; NFPE findings of moderate muscle wasting and fat loss Meet estimated nutritional needs - Progressing toward goal Goal: Pt current nutrition is Consistent carb diet. Intakes 75-100%. Nutrition recommendation: Glucerna TID for additional 220 kcal and 10 g protein each; Slim BID to promote wound healing, 90 kcal and 2.5 g protein. Last recorded weight is 76.8 kg. Bowel Motility: Last BM 11/09/22 Labs Reviewed: Alb 3.2, Na 133, Glu 154-180 Meds Noted: Dilaudid, novolog, lantus, zofran Skin: Incision R LE Additional Notes: Status post R BKA 11/11/22. Increased protein energy needs related to wound healing. Pt agreed to try Glucerna. Appetite is good. already has a L BKA; will need an updated weight when able. Monitoring intakes, labs, weights, wound healing, plan of care, supplement tolerance Follow up in 5 days
[2022-11-12 16:00] VITALS: BP 132/72; PULSE 101; RESP 12; TEMP 36.7; O2SAT 97
[2022-11-12 16:45] LABS: Glucose Point of Care 153 mg/dl (65-105)
[2022-11-12 20:00] VITALS: BP 152/82; PULSE 105; RESP 16; TEMP 36.6; O2SAT 97
[2022-11-12 20:59] LABS: Glucose Point of Care 153 mg/dl (65-105)
[2022-11-13] MEDS: HYDROmorphone HCL INJ (*CRX) 1 MG/ML SYR IV PUSH ×3 (04:33→17:52)
[2022-11-13] MEDS: oxyCODONE HCL (*CRX) 5 MG TAB IR PO ×3 (06:19→20:19)
[2022-11-13 06:34] VITALS: BP 150/73; PULSE 105; RESP 16; TEMP 37; O2SAT 95
[2022-11-13 06:50] LABS: Hematocrit 28.4 % (42.0-52.0); Hemoglobin 9.2 g/dL (14.0-18.0); Mean Corpuscular HGB Conc 32.4 g/dl (32-36); Mean Corpuscular Hemoglobin 28.2 pg (26-34); Mean Corpuscular Volume 87.1 fl (80-100); Mean Platelet Volume 9.8 fl (7.4-10.4); Platelet Count Result 329 k/mm3 (150-375); Red Blood Count 3.26 M/mm3 (4.6-6.20); Red Cell Distribution Width 12.5 % (11.5-14.5); White Blood Count 8.9 K/mm3 (4.5-10.0)
[2022-11-13 06:57] LABS: Alanine Aminotransferase 31 U/L (6-50); Albumin Level 3.2 g/dL (3.5-5.1); Alkaline Phosphatase 86 U/L (38-126); Anion Gap 2 mmol/L (8-16); Aspartate Amino Transferase 62 U/L (17-59); Bilirubin,Total 0.3 mg/dL (0.2-1.3); Blood Urea Nitrogen 18 mg/dL (9-20); Calcium 8.2 mg/dL (8.4-10.2); Carbon Dioxide 30 mmol/L (22-30); Chloride 98 mmol/L (98-107); Estimated CRCL calculation 97 ml/min; Estimated Glomerular Filt Rate > 60; Glucose 178 mg/dL (65-110); Magnesium 1.4 mg/dL (1.6-2.3); Potassium 4.3 mmol/L (3.4-5.0); Sodium 130 mmol/L (137-145)
[2022-11-13 08:18] LABS: Glucose Point of Care 183 mg/dl (65-105)
[2022-11-13] MEDS: metFORMIN HCL 500 MG TABLET PO ×2 (09:22→17:49)
[2022-11-13] MEDS: INSULIN ASPART (*BKC) 100 UNITS/ML SUB-Q ×4 (09:22→17:48)
[2022-11-13] MEDS: ENOXAPARIN 40 MG/0.4 ML SYRINGE SUB-Q (09:23)
[2022-11-13] MEDS: SERTRALINE HCL 25 MG TABLET PO (10:04)
--- NOTE | 2022-11-13 10:34 | PCOTNOTE ---
Attempted to see Patient at this time. Patient verbalized, he is waiting on the surgeon to come look at his leg and was not doing anything til he checked it out . Will check back at a later time.
--- NOTE | 2022-11-13 11:12 | PM.PNGS ---
Progress Note: A&P Assessment and Plan (1) Gangrene of toe of right foot: Code(s): I96 - Gangrene, not elsewhere classified Status: Resolved Assessment and Plan: Patient is doing well status post right below-knee amputation. Wound looks good. The drain was removed today. We will continue with therapy today anticipate discharge to longterm facility tomorrow. He will need to follow up in the office in 2 weeks. Subjective Subjective Date/Time Seen: 11/13/22 11:12 Interval history: Patient is doing well. His pain after his right BKA has been well controlled with oral pain medications. He has been working with therapy. He has been accepted to longterm facility. Exam Extrem: Other: Dressing was taken down off of the right BKA stump today. The incision is well approximated without any bleeding. GUME drain was in place with some sanguinous drainage but low volume. Expected mild swelling but the musculotendinous flap is completely viable without any ischemia. He is able to flex and extend at the knee fully. Objective Data Vital Signs Vital Signs: Vital Signs - 24 hr 11/12/22 12:00 11/12/22 16:00 11/12/22 20:00 Temperature 37.0 C 36.7 C 36.6 C Pulse Rate 99 101 H 105 H Respiratory Rate 12 12 16 Blood Pressure 135/73 132/72 152/82 H Pulse Oximetry 96 97 97 11/13/22 06:34 Temperature 37.0 C Pulse Rate 105 H Respiratory Rate 16 Blood Pressure 150/73 H Pulse Oximetry 95 Intake/Output Intake/Output: Intake & Output 11/10/22 11/11/22 11/12/22 11/13/22 23:59 23:59 23:59 23:59 Intake Total 1426 2630 960 240 Output Total 3615 1900 1165 805 Balance -2189 730 -205 -565 Meds/Results Medications: Active Medications Generic Name Dose Route Start Last Admin Trade Name Freq PRN Reason Stop Dose Admin Acetaminophen 650 mg 11/07/22 03:04 Acetaminophen 325 Mg Tablet PO Q4H PRN Mild Pain (1-3) or Fever Al Hydrox/Mg Hydrox/Simethicone 30 ml 11/07/22 03:04 Mag Hydrox/Al Hydrox/Simeth 30 Ml Udc PO QID PRN Dyspepsia Dextrose 12.5 gm 11/07/22 03:07 Dextrose 50% 25 Gm/50 Ml Syringe IV PUSH PRN PRN Hypoglycemia Protocol Enoxaparin Sodium 40 mg 11/07/22 09:00 11/13/22 09:23 Enoxaparin 40 Mg/0.4 Ml Syringe SUB-Q 40 mg DAILY OMI Administration Glucagon 1 mg 11/07/22 03:07 Glucagon For Inj 1 Mg Vial IM PRN PRN Hypoglycemia Protocol Glucose 15 gm 11/07/22 03:07 Glucose Oral Gel 15 Gm Of Glucse In 37.5 Gm Tube PO PRN PRN Hypoglycemia Protocol Hydromorphone HCl 1 mg 11/11/22 17:05 11/13/22 09:24 Hydromorphone Hcl Inj (*Crx) 1 Mg/Ml Syr IV PUSH 1 mg Q4H PRN Administration Pain Rated 7-10 Insulin Aspart 4 units 11/07/22 08:00 11/13/22 09:22 Insulin Aspart (*Bkc) 100 Units/Ml 0.05 units/kg (4 units) 4 units SUB-Q Administration [facility] Insulin Aspart 2 - 5 units 11/07/22 17:00 11/13/22 09:21 Insulin Aspart (*Bkc) 100 Units/Ml SUB-Q Not Given [facility] Protocol Insulin Glargine 15 units 11/09/22 21:00 11/12/22 21:42 Insulin Glargine (*Bkc) 100 Units/Ml SUB-Q Not Given [facility] Magnesium Hydroxide 30 ml 11/07/22 03:04 Magnesium Hydroxide Susp 30 Ml Udc PO DAILY PRN Constipation Metformin HCl 500 mg 11/07/22 09:00 11/13/22 09:22 Metformin Hcl 500 Mg Tablet PO 500 mg BID OMI Administration Naloxone HCl 0.1 mg 11/07/22 03:04 Naloxone Hcl 0.4 Mg/Ml Vial IV PUSH Q2M PRN Opiate Reversal Ondansetron HCl 4 mg 11/07/22 03:04 Ondansetron Inj 4 Mg/2 Ml Vial IV PUSH Q6H PRN Nausea And Vomiting Oxycodone HCl 5 mg 11/11/22 17:05 11/13/22 10:32 Oxycodone Hcl (*Crx) 5 Mg Tab Ir PO 5 mg Q4H PRN Administration Pain Rated 7-10 Sertraline HCl 25 mg 11/13/22 09:00 11/13/22 10:04 Sertraline Hcl 25 Mg Tablet PO 25 mg QAM OMI Administration Radi
--- NOTE | 2022-11-13 11:45 | P.PNIM_ITS ---
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 Empirically restarted on his previous metronidazole, vancomycin and cefepime. * surgery consult and plan for right yrbff-dbo-hwgh amputation 11/11/22 * wound consult * Foot x-ray revealing intra-articular fracture at the distal aspect of the fixed proximal phalanx, no evidence of osteomyelitis * MRI revealing osteomyelitis of the base of the 5th metatarsal with overlying soft tissue ulcer. No abscess. * Drain has been removed (2) Cellulitis of right foot: Code(s): L03.115 - Cellulitis of right lower limb Status: Acute Assessment and Plan: * Continue empiric antibiotics. Wound care. * Antibiotics stopped per surgery (3) Osteomyelitis: Qualifiers: Osteomyelitis type: acute hematogenous Osteomyelitis location: foot Laterality: right Qualified Code(s): M86.071 - Acute hematogenous osteomyelitis, right ankle and foot Code(s): M86.9 - Osteomyelitis, unspecified Status: Acute Assessment and Plan: Patient undergoing BTK amputation. Discussed with [facility] and they stated he will likely need 4 days of antibiotics after surgery (4) Uncontrolled diabetes mellitus: Qualifiers: Diabetes mellitus type: type 2 Glycemic state: with hyperglycemia Qualified Code(s): E11.65 - Type 2 diabetes mellitus with hyperglycemia Code(s): E11.65 - Type 2 diabetes mellitus with hyperglycemia Status: Acute Assessment and Plan: * On review of previous notes, patient had hemoglobin A1c of over 11 during last admission. * Was supposed to be on insulin however is homeless and unsure about compliance. * Will need strict blood sugar control for proper wound healing. Resume insulin. * hospital educator consulted on patient. * Glucose stable at 178 (5) HTN (hypertension): Qualifiers: Hypertension type: primary hypertension Qualified Code(s): I10 - Essential (primary) hypertension Code(s): I10 - Essential (primary) hypertension Status: Acute Assessment and Plan: * Patient with history of hypertension however due to social circumstances is not taking any medications currently. * Ideally should be on QUANG-inhibitor for his diabetes. * Start lisinopril-urinalysis in past has shown proteinuria already * BP is 150/73 (6) Polysubstance abuse: Code(s): F19.10 - Other psychoactive substance abuse, uncomplicated Status: Acute Assessment and Plan: * Admits to half a pack of tobacco daily as well as methamphetamine use. Advised to quit. (7) Homeless: Code(s): Z59.00 - Homelessness unspecified Status: Acute Assessment and Plan: * Patient says his son and daughter have no room for him. * client manager consult for place
--- NOTE | 2022-11-13 11:45 | PM.IMPN ---
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 Empirically restarted on his previous metronidazole, vancomycin and cefepime. surgery consult and plan for right sbvtb-lhz-qdad amputation 11/11/22 wound consult Foot x-ray revealing intra-articular fracture at the distal aspect of the fixed proximal phalanx, no evidence of osteomyelitis MRI revealing osteomyelitis of the base of the 5th metatarsal with overlying soft tissue ulcer. No abscess. Drain has been removed (2) Cellulitis of right foot: Code(s): L03.115 - Cellulitis of right lower limb Status: Acute Assessment and Plan: Continue empiric antibiotics. Wound care. Antibiotics stopped per surgery (3) Osteomyelitis: Qualifiers: Osteomyelitis type: acute hematogenous Osteomyelitis location: foot Laterality: right Qualified Code(s): M86.071 - Acute hematogenous osteomyelitis, right ankle and foot Code(s): M86.9 - Osteomyelitis, unspecified Status: Acute Assessment and Plan: Patient undergoing BTK amputation. Discussed with [facility] and they stated he will likely need 4 days of antibiotics after surgery (4) Uncontrolled diabetes mellitus: Qualifiers: Diabetes mellitus type: type 2 Glycemic state: with hyperglycemia Qualified Code(s): E11.65 - Type 2 diabetes mellitus with hyperglycemia Code(s): E11.65 - Type 2 diabetes mellitus with hyperglycemia Status: Acute Assessment and Plan: On review of previous notes, patient had hemoglobin A1c of over 11 during last admission. Was supposed to be on insulin however is homeless and unsure about compliance. Will need strict blood sugar control for proper wound healing. Resume insulin. plant etiologist consulted on patient. Glucose stable at 178 (5) HTN (hypertension): Qualifiers: Hypertension type: primary hypertension Qualified Code(s): I10 - Essential (primary) hypertension Code(s): I10 - Essential (primary) hypertension Status: Acute Assessment and Plan: Patient with history of hypertension however due to social circumstances is not taking any medications currently. Ideally should be on QUANG-inhibitor for his diabetes. Start lisinopril-urinalysis in past has shown proteinuria already BP is 150/73 (6) Polysubstance abuse: Code(s): F19.10 - Other psychoactive substance abuse, uncomplicated Status: Acute Assessment and Plan: Admits to half a pack of tobacco daily as well as methamphetamine use. Advised to quit. (7) Homeless: Code(s): Z59.00 - Homelessness unspecified Status: Acute Assessment and Plan: Patient says his son and daughter have no room for him. manager financial planning consult for placement (8) Depression: Qualifiers: Depression Type: major depressive disorder Major depression recurrence: unspecified whether recurrent Active/Remission status: currently active Major depression episode severity: unspecified Qualified Code(s): F32.9 - Major depressive disorder, single episode, unspecified Code(s): F32.9 - Major depressive disorder, single episode, unspecified Status: Acute Assessment and Plan:
[2022-11-13 11:56] LABS: Glucose Point of Care 193 mg/dl (65-105)
[2022-11-13 14:03] VITALS: BP 129/75; PULSE 105; RESP 16; TEMP 36.4; O2SAT 97
[2022-11-13 16:49] LABS: Glucose Point of Care 229 mg/dl (65-105)
--- NOTE | 2022-11-13 20:18 | PC.NURSE ---
pt explained to this RN that he was to be in court today. pt asked this RN to write note stating he was a current pt here and asked if could fax it to the appropriate people at the [facility]. Charge nurse wrote note stating he is being treated at this facility, pt signed it, and it was faxed to the fax number that pt provided. fax transmitted successful. Note and completed fax put in paper chart.
[2022-11-13] MEDS: INSULIN GLARGINE (*BKC) 100 UNITS/ML 15 UNITS SUB-Q (20:20)
[2022-11-13 20:33] LABS: Glucose Point of Care 169 mg/dl (65-105)
[2022-11-13 21:18] VITALS: BP 138/84; PULSE 108; RESP 14; TEMP 36.3; O2SAT 96
[2022-11-14] MEDS: HYDROmorphone HCL INJ (*CRX) 1 MG/ML SYR IV PUSH (04:56)
[2022-11-14 06:06] LABS: Basophils Absolute Auto 0.1 K/mm3 (0.0-0.1); Basophils Percent Auto 0.6 % (0.2-1.2); Eosinophils Absolute Auto 0.2 K/mm3 (0-0.3); Eosinophils Percent Auto 1.9 % (0-4.4); Hemoglobin 9.4 g/dL (14.0-18.0); Immature Granulocyte Absolute 0.03 K/mm3 (0.00-0.031); Immature Granulocyte Percent A 0.4 % (0-0.5); Lymphocytes Absolute Auto 1.64 K/mm3 (0.9-3.2); Lymphocytes Percent Auto 19.7 % (18.3-44.2); Mean Corpuscular HGB Conc 32.4 g/dl (32-36); Mean Corpuscular Hemoglobin 28.3 pg (26-34); Mean Corpuscular Volume 87.3 fl (80-100); Mean Platelet Volume 9.6 fl (7.4-10.4); Monocytes Absolute Auto 0.8 K/mm3 (0.1-0.6); Monocytes Percent Auto 9.9 % (2.6-8.5); Neutrophils Absolute Auto 5.6 K/mm3 (1.3-6.7); Neutrophils Percent Auto 67.5 % (45.5-73.1); Platelet Count Result 351 k/mm3 (150-375); Red Blood Count 3.32 M/mm3 (4.6-6.20); Red Cell Distribution Width 12.6 % (11.5-14.5); White Blood Count 8.3 K/mm3 (4.5-10.0)
[2022-11-14 06:17] LABS: Alanine Aminotransferase 28 U/L (6-50); Albumin Level 3.3 g/dL (3.5-5.1); Alkaline Phosphatase 87 U/L (38-126); Anion Gap 3 mmol/L (8-16); Aspartate Amino Transferase 49 U/L (17-59); Bilirubin,Total 0.3 mg/dL (0.2-1.3); Blood Urea Nitrogen 16 mg/dL (9-20); Calcium 8.4 mg/dL (8.4-10.2); Carbon Dioxide 33 mmol/L (22-30); Chloride 97 mmol/L (98-107); Estimated CRCL calculation 86 ml/min; Estimated Glomerular Filt Rate > 60; Glucose 162 mg/dL (65-110); Magnesium 1.6 mg/dL (1.6-2.3); Potassium 3.9 mmol/L (3.4-5.0); Sodium 133 mmol/L (137-145)
[2022-11-14 06:31] VITALS: BP 131/77; PULSE 98; RESP 14; TEMP 36; O2SAT 100
--- NOTE | 2022-11-14 06:39 | P.DS_ITS ---
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 * Empirically restarted on his previous metronidazole, vancomycin and cefepime. * surgery consult and plan for right vmnlo-yxt-womm amputation 11/11/22 * wound consult * Foot x-ray revealing intra-articular fracture at the distal aspect of the fixed proximal phalanx, no evidence of osteomyelitis * MRI revealing osteomyelitis of the base of the 5th metatarsal with overlying soft tissue ulcer. No abscess. * Drain has been removed (2) Cellulitis of right foot: Code(s): L03.115 - Cellulitis of right lower limb Status: Acute Assessment and Plan: * Continue empiric antibiotics. Wound care. * Antibiotics stopped per surgery (3) Osteomyelitis: Qualifiers: Laterality: right Osteomyelitis location: foot Osteomyelitis type: acute hematogenous Qualified Code(s): M86.071 - Acute hematogenous osteomyelitis, right ankle and foot Code(s): M86.9 - Osteomyelitis, unspecified Status: Acute Assessment and Plan: * Patient undergoing BTK amputation. * Discussed with [facility] and they stated he will likely need 4 days of antibiotics after surgery (4) Uncontrolled diabetes mellitus: Qualifiers: Diabetes mellitus type: type 2 Glycemic state: with hyperglycemia Qualified Code(s): E11.65 - Type 2 diabetes mellitus with hyperglycemia Code(s): E11.65 - Type 2 diabetes mellitus with hyperglycemia Status: Acute Assessment and Plan: * On review of previous notes, patient had hemoglobin A1c of over 11 during last admission. * Was supposed to be on insulin however is homeless and unsure about compliance. * Will need strict blood sugar control for proper wound healing. Resume insulin. * community educator consulted on patient. * Glucose stable at 162 (5) HTN (hypertension): Qualifiers: Hypertension type: primary hypertension Qualified Code(s): I10 - Essential (primary) hypertension Code(s): I10 - Essential (primary) hypertension Status: Acute Assessment and Plan: * Patient with history of hypertension however due to social circumstances is not taking any medications currently. * Ideally should be on QUANG-inhibitor for his diabetes. * Start lisinopril-urinalysis in past has shown proteinuria already * BP is 131/77 (6) Polysubstance abuse: Code(s): F19.10 - Other psychoactive substance abuse, uncomplicated Status: Acute Assessment and Plan: * Admits to half a pack of tobacco daily as well as methamphetamine use. Advised to quit. (7) Homeless: Code(s): Z59.00 - Homelessness unspecified Status: Acute
--- NOTE | 2022-11-14 06:39 | PM.DS ---
DS: Admitting Diagnosis Discharge Date 11/14/22 Admitting Diagnosis Diabetic Wound infection, osteomylitis DS: Discharge Diagnosis Discharge Diagnosis (1) Diabetic foot ulcer: Qualifiers: Diabetes mellitus type: type 2 Diabetic foot ulcer location: midfoot Laterality: right Non-pressure ulcer stage: with necrosis of muscle Qualified Code(s): E11.621 - Type 2 diabetes mellitus with foot ulcer; L97.413 - Non-pressure chronic ulcer of right heel and midfoot with necrosis of muscle Code(s): E11.621 - Type 2 diabetes mellitus with foot ulcer; L97.509 - Non-pressure chronic ulcer of other part of unspecified foot with unspecified severity Status: Acute Assessment and Plan: Antibiotics for osteomyelitis of his right foot presented with worsening redness of right 5th toe. Empirically restarted on his previous metronidazole, vancomycin and cefepime. surgery consult and plan for right [id number] amputation 11/11/22 wound consult Foot x-ray revealing intra-articular fracture at the distal aspect of the fixed proximal phalanx, no evidence of osteomyelitis MRI revealing osteomyelitis of the base of the 5th metatarsal with overlying soft tissue ulcer. No abscess. Drain has been removed (2) Cellulitis of right foot: Code(s): L03.115 - Cellulitis of right lower limb Status: Acute Assessment and Plan: Continue empiric antibiotics. Wound care. Antibiotics stopped per surgery (3) Osteomyelitis: Qualifiers: Laterality: right Osteomyelitis location: foot Osteomyelitis type: acute hematogenous Qualified Code(s): M86.071 - Acute hematogenous osteomyelitis, right ankle and foot Code(s): M86.9 - Osteomyelitis, unspecified Status: Acute Assessment and Plan: Patient undergoing BTK amputation. Discussed with [facility] and they stated he will likely need 4 days of antibiotics after surgery (4) Uncontrolled diabetes mellitus: Qualifiers: Diabetes mellitus type: type 2 Glycemic state: with hyperglycemia Qualified Code(s): E11.65 - Type 2 diabetes mellitus with hyperglycemia Code(s): E11.65 - Type 2 diabetes mellitus with hyperglycemia Status: Acute Assessment and Plan: On review of previous notes, patient had hemoglobin A1c of over 11 during last admission. Was supposed to be on insulin however is homeless and unsure about compliance. Will need strict blood sugar control for proper wound healing. Resume insulin. nutrition educator consulted on patient. Glucose stable at 162 (5) HTN (hypertension): Qualifiers: Hypertension type: primary hypertension Qualified Code(s): I10 - Essential (primary) hypertension Code(s): I10 - Essential (primary) hypertension Status: Acute Assessment and Plan: Patient with history of hypertension however due to social circumstances is not taking any medications currently. Ideally should be on QUANG-inhibitor for his diabetes. Start lisinopril-urinalysis in past has shown proteinuria already BP is 131/77 (6) Polysubstance abuse: Code(s): F19.10 - Other psychoactive substance abuse, uncomplicated Status: Acute Assessment and Plan: Admits to half a pack of tobacco daily as well as methamphetamine use. Advised to quit. (7) Homeless: Code(s): Z59.00 - Homelessness unspecified Status: Acute Assessment and Plan: Patient says his son and daughter have no room for him. imaging center manager consult for placement (8) Depression: Qualifiers: Active/Remission status: currently active Depression Type: major depressive disorder Major depression episode severity: unspecified Major depression recurrence: unspecified whether recurrent Qualified Code(s): F32.9 - Major depressive disorder, single episode, unspecified Code(s): F32.9 - Major depres
[2022-11-14 07:44] LABS: Glucose Point of Care 156 mg/dl (65-105)
[2022-11-14] MEDS: oxyCODONE HCL (*CRX) 5 MG TAB IR PO (08:59)
[2022-11-14] MEDS: ENOXAPARIN 40 MG/0.4 ML SYRINGE SUB-Q (09:00)
[2022-11-14] MEDS: SERTRALINE HCL 25 MG TABLET PO (09:00)
[2022-11-14] MEDS: metFORMIN HCL 500 MG TABLET PO (09:00)
--- NOTE | 2022-11-14 09:21 | PM.PNGS ---
Progress Note: A&P Assessment and Plan (1) Status post below knee amputation of right lower extremity: Code(s): Z89.511 - Acquired absence of right leg below knee Status: Acute Assessment and Plan: Doing well. The patient appears to be working with therapy well. The right below-knee amputation stump is healing appropriately. Okay to discharge to long term facility today for further therapy. He will need to follow up to see me in the office in 2 weeks for evaluation of the stump and possible suture removal. Subjective Subjective Date/Time Seen: 11/14/22 09:21 Interval history: Patient doing well. Working with occupational therapy today. Pain is well controlled with oral pain medications. He is set up to go to long term facility at discharge. Exam Extrem: Other: Right BKA stump with some swelling but mild. No redness or drainage from the incision line. Muscular cutaneous flap is viable without any evidence of ischemia. Objective Data Vital Signs Vital Signs: Vital Signs - 24 hr 11/13/22 14:03 11/13/22 21:18 11/13/22 20:00 Temperature 36.4 C 36.3 C L Pulse Rate 105 H 108 H Respiratory Rate 16 14 Blood Pressure 129/75 138/84 Pulse Oximetry 97 96 Oxygen Delivery Room Air 11/14/22 06:31 Temperature 36.0 C L Pulse Rate 98 Respiratory Rate 14 Blood Pressure 131/77 Pulse Oximetry 100 Oxygen Delivery Intake/Output Intake/Output: Intake & Output 11/11/22 11/12/22 11/13/22 11/14/22 23:59 23:59 23:59 23:59 Intake Total 2630 960 1070 477 Output Total 1900 1165 1605 Balance 700 -667 -716 47 Meds/Results Medications: Active Medications Generic Name Dose Route Start Last Admin Trade Name Freq PRN Reason Stop Dose Admin Acetaminophen 650 mg 11/07/22 03:04 Acetaminophen 325 Mg Tablet PO Q4H PRN Mild Pain (1-3) or Fever Al Hydrox/Mg Hydrox/Simethicone 30 ml 11/07/22 03:04 Mag Hydrox/Al Hydrox/Simeth 30 Ml Udc PO QID PRN Dyspepsia Dextrose 12.5 gm 11/07/22 03:07 Dextrose 50% 25 Gm/50 Ml Syringe IV PUSH PRN PRN Hypoglycemia Protocol Enoxaparin Sodium 40 mg 11/07/22 09:00 11/14/22 09:00 Enoxaparin 40 Mg/0.4 Ml Syringe SUB-Q 40 mg DAILY OMI Administration Glucagon 1 mg 11/07/22 03:07 Glucagon For Inj 1 Mg Vial IM PRN PRN Hypoglycemia Protocol Glucose 15 gm 11/07/22 03:07 Glucose Oral Gel 15 Gm Of Glucse In 37.5 Gm Tube PO PRN PRN Hypoglycemia Protocol Hydromorphone HCl 1 mg 11/11/22 17:05 11/14/22 04:56 Hydromorphone Hcl Inj (*Crx) 1 Mg/Ml Syr IV PUSH 1 mg Q4H PRN Administration Pain Rated 7-10 Insulin Aspart 4 units 11/07/22 08:00 11/13/22 17:48 Insulin Aspart (*Bkc) 100 Units/Ml 0.05 units/kg (4 units) 4 units SUB-Q Administration [facility] Insulin Aspart 2 - 5 units 11/07/22 17:00 11/13/22 17:48 Insulin Aspart (*Bkc) 100 Units/Ml SUB-Q 2 units [facility] Administration Protocol Insulin Glargine 15 units 11/09/22 21:00 11/13/22 20:20 Insulin Glargine (*Bkc) 100 Units/Ml SUB-Q 15 units HS OMI Administration Magnesium Hydroxide 30 ml 11/07/22 03:04 Magnesium Hydroxide Susp 30 Ml Udc PO DAILY PRN Constipation Metformin HCl 500 mg 11/07/22 09:00 11/14/22 09:00 Metformin Hcl 500 Mg Tablet PO 500 mg BID OMI Administration Naloxone HCl 0.1 mg 11/07/22 03:04 Naloxone Hcl 0.4 Mg/Ml Vial IV PUSH Q2M PRN Opiate Reversal Ondansetron HCl 4 mg 11/07/22 03:04 Ondansetron Inj 4 Mg/2 Ml Vial IV PUSH Q6H PRN Nausea And Vomiting Oxycodone HCl 5 mg 11/11/22 17:05 11/14/22 08:59 Oxycodone Hcl (*Crx) 5 Mg Tab Ir PO 5 mg Q4H PRN Administration Pain Rated 7-10 Sertraline HCl 25 mg 11/13/22 09:00 11/14/22 09:00 Sertraline Hcl 25 Mg Tablet PO 25 mg QAM OMI Administration Radiology Results: ITS Impressions Sukhdeep
[2022-11-14 11:33] LABS: Glucose Point of Care 239 mg/dl (65-105)
[2022-11-14] MEDS: INSULIN ASPART (*BKC) 100 UNITS/ML SUB-Q ×2 (11:42)
[2022-11-14 11:48] LABS: SARS-CoV-2 RNA PCR Negative (Negative)
[2022-11-14] MEDS: oxyCODONE/ACETAMINOPHEN (*CRX) 10-325 MG TABLET 1 TAB PO (12:32)
== END 2022-11-14 13:20 | DRG 240 ==
LOC: ANHED 11-07 01:59 → ANH3MEDSUR 11-07 03:15
PROVIDERS: Internal Medicine Critical Care Medicine; Nurse Practitioner; Surgery; Admitting Provider Internal Medicine; Emergency Provider Physician Assistant; Visit Provider Chiropractor
PROC: 0Y6H0Z1 Detachment at Right Lower Leg, High, Open Approach (ICD-10-PCS; CPT 27882; principal; 2022-11-11 12:30)
DX: E11.52 Type 2 diabetes mellitus with diabetic peripheral angiopathy with gangrene (principal); I96 Gangrene, not elsewhere classified; L03.115 Cellulitis of right lower limb; L97.413 Non-pressure chronic ulcer of right heel and midfoot with necrosis of muscle; M86.9 Osteomyelitis, unspecified; E11.621 Type 2 diabetes mellitus with foot ulcer; E11.628 Type 2 diabetes mellitus with other skin complications; E11.42 Type 2 diabetes mellitus with diabetic polyneuropathy; E11.69 Type 2 diabetes mellitus with other specified complication; E11.319 Type 2 diabetes mellitus with unspecified diabetic retinopathy without macular edema; E11.65 Type 2 diabetes mellitus with hyperglycemia; I48.0 Paroxysmal atrial fibrillation; I10 Essential (primary) hypertension; K21.9 Gastro-esophageal reflux disease without esophagitis; E78.5 Hyperlipidemia, unspecified; S92.511A Displaced fracture of proximal phalanx of right lesser toe(s), initial encounter for closed fracture; F19.10 Other psychoactive substance abuse, uncomplicated; F41.9 Anxiety disorder, unspecified; F32.A Depression, unspecified; F17.210 Nicotine dependence, cigarettes, uncomplicated; Z20.822 Contact with and (suspected) exposure to COVID-19; Z86.11 Personal history of tuberculosis; Z85.46 Personal history of malignant neoplasm of prostate; Z86.19 Personal history of other infectious and parasitic diseases; Z89.512 Acquired absence of left leg below knee; Z89.421 Acquired absence of other right toe(s); Z59.00 Homelessness unspecified; Z91.198 Patient's noncompliance with other medical treatment and regimen for other reason
CPT/HCPCS: 36415; 73630; 73720; 80048; 80053; 80202; 80307; 82948; 83036; 83605; 83735; 85025; 85027; 85652; 85730; 86140; 87040; 87635; 88307; 88311; 93922; 96361; 96365; 96366; 96367; 96372; 96375; 97110; 97161; 97166; 97530; 97535; 99285; A9270; A9577; G0378; J0692; J1100; J1170; J1650; J1815; J1836; J2250; J2405; J2704; J3010; J3370; J7030; J7120

== ENCOUNTER 2025-02-06 10:10 | Inpatient (IN) | payer MEDICARE, MEDICAID, SELFPAY ==
[2025-02-06] VITALS (11 sets, daily range): BP systolic 170–175; BP diastolic 91–94; PULSE 88–103; RESP 17–24; TEMP 36.6; O2SAT 92–98; BMI 24.5
--- NOTE | ~2025-02-06 | XR_ITS ---
Examination: XR chest 1V portable Clinical History: CHF and hypoxia Comparison: 1 day prior Technique: Portable AP Findings: Heart size normal. Persistent pleural effusions and bibasilar opacities. Persistent mild interstitial markings. No acute bony abnormality. IMPRESSION: 1. No significant change. 2. Pleural effusions with bibasilar atelectasis and/or airspace disease. 3. Interstitial pulmonary edema and/or pneumonitis. Reviewed, dictated and finalized at location R.
--- NOTE | ~2025-02-06 | US_ITS ---
EXAMINATION: US venous doppler [facility] DATE: 02/08/2025 16:47 INDICATION: Lower limb swelling TECHNIQUE: Grayscale ultrasound images without and with compression and Doppler ultrasound images of the bilateral lower extremity veins were obtained. COMPARISON: None. FINDINGS: Noncompressible deep venous thrombosis at the right popliteal vein. The visualized portions of right common femoral vein, profunda (deep) femoral vein, femoral vein and greater saphenous vein outflow are patent. Patient is status post right [id number] amputation precluding assessment of the posterior tibial and peroneal veins. Noncompressible deep venous anastomosis at the left popliteal vein. The visualized portions of left common femoral vein, profunda femoral vein, femoral vein and greater saphenous vein outflow are patent. Patient is status post left [id number] amputation precluding assessment of the posterior tibial and peroneal veins. IMPRESSION: 1. Deep venous thrombosis at the bilateral popliteal veins. Findings were discussed with Polo Gee, the nurse caring for the patient, at 5:18 PM. Reviewed, dictated and finalized at location A. IMPRESSION: 1. Deep venous thrombosis at the bilateral popliteal veins. Findings were disc ussed with Polo Gee, the nurse caring for the patient, at 5:18 PM.
--- NOTE | ~2025-02-06 | US_ITS ---
EXAMINATION: US thoracentesis DATE: 02/09/2025 14:11 INDICATION: Left pleural effusion TECHNIQUE: The procedure and its risks and benefits were discussed with the patient. Potential risks discussed included bleeding, infection, and pneumothorax. The patient understood the risks and agreed to proceed. The skin was prepped and draped in sterile fashion. 1% lidocaine was used for local anes thesia. Under ultrasound guidance, a 5 Fr catheter with trochar was advanced into the left pleural effusion. Fluid was aspirated. The catheter was removed, and a dressing was applied. There were no immediate complications. FINDINGS: Ultrasound images demonstrate a moderate-sized left pleural effusion and the catheter within the fluid. IMPRESSION: 1. Successful ultrasound-guided thoracentesis yielding 1100 mL of straw-colored fluid. Reviewed, dictated and finalized at location A. IMPRESSION: 1. Successful ultrasound-guided thoracentesis yielding 1100 mL of straw-colore d fluid.
--- NOTE | ~2025-02-06 | CT_ITS ---
Exam: CT chest with contrast Clinical History: [Hypoxia. ] Comparison: [ ] Technique: Multiple axial CT images of the chest, abdomen and pelvis with IV contrast. Sagittal and coronal reformatted images were obtained. FINDINGS: Lungs and pleura: [ Moderate-sized bilateral pleural effusions.] No pulmonary embolism identified. No pneumothorax. Moderate-sized consolidations in the lower lobes and right middle lobe. Small to moderate size ground glass opacity scattered throughout both lungs most prominent in the upper lobes. Mediastinum and pulmonary steffany: [ No mass or adenopathy.] Axillary/intramammary and supraclavicular: [ No mass or adenopathy.] Heart and great vessels: [ Normal heart size.[ [ Moderate-sized pericardial effusion.] [ No aneurysm.] Chest Wall: [ Unremarkable.] Liver: [ No mass.] [ No intrahepatic biliary duct dilatation.] Gallbladder: [Cholelithiasis.No wall thickening.] Common bile duct: [ Normal caliber.] [ No stones.] Spleen: [ The spleen is not enlarged. Spleen is slightly heterogeneous. Pancreas: [ No mass. No pancreatic fluid collection.] Adrenals: [ No masses.] Kidneys: [ No masses. No hydronephrosis.][ There are a few too small to characterize low-attenuation lesions in the kidneys. There is a 2 cm cyst in the left kidney.] There are a few tiny nonobstructing renal stones. Lymph nodes: [ No adenopathy in the abdomen or pelvis.] Stomach, small bowel and colon: [ No bowel wall thickening or obstruction.] Peritoneum cavity: Small amount of fluid and fat stranding scattered throughout the abdomen and pelvis for prominent in the right abdomen. Bladder: Concentric thickening of the cintron of the moderately distended bladder. Differential includes incomplete bladder wall distention, cystitis or sequelae from bladder outlet obstruction. Prostate gland is mildly enlarged and partially calcified. Osseous structures: [ No acute fracture or destructive lesion.] [ Multilevel degenerative change in the visualized spine.] Abdominal aorta: [ No aneurysm.] Additional findings: Moderate nonspecific anasarca. Small bilateral fat- containing inguinal hernias, larger on the right which also contains fluid. IMPRESSION: 1. No pulmonary embolism identified. 2. Moderate-sized bilateral pleural effusions. 3. Moderate-sized consolidations in the lower lobes and right middle lobe. Recommend follow-up to resolution. 4. Small to moderate size ground glass opacity scattered throughout both lungs most prominent in the upper lobes. Recommend follow-up to resolution. 5. Moderate-sized pericardial effusion. 6. Cholelithiasis. 7. Small amount of fluid and fat stranding scattered throughout the abdomen and pelvis for prominent in the right abdomen. 8. Concentric thickening of the cintron of the moderately distended bladder. Differential includes incomplete bladder wall distention, cystitis or sequelae from bladder outlet obstruction. 9. Moderate nonspecific anasarca. 10. Small bilateral fat-containing inguinal hernias, larger on the right which also contains fluid Reviewed, dictated and finalized at location Q. IMPRESSION: 1. No pulmonary embolism identified. 2. Moderate-sized bilateral pleural effusions. 3. Moderate-sized consolidations in the lower lobes and right middle lobe. Juan mmend follow-up to resolution. 4. Small to moderate size ground glass opacity scattered throughout both lungs most prominent in the upper lobes. Recommend follow-up to resolution. 5. Moderate-sized pericardial effusion. 6. Cholelithiasis. 7. Small amount of fluid and fat stranding scattered throughout the abdomen and pelvis for prominent in the right abdomen. 8. Concentric thickening of the cintron of the moderately distended bladder. Diff erential includes incomplete bladder wall distention, cystitis or sequelae from bladder outlet obstruction. 9. Moderate nonspecific anasarca. 10. Small bilateral fat-containing inguinal hernias, larger on the right which also contains fluid
--- NOTE | ~2025-02-06 | XR_ITS ---
EXAMINATION: XR chest 2V, 02/06/2025 12:20 CDT HISTORY: sob, weakness COMPARISON: No comparisons available. Technique: 2 views obtained. Findings: Moderate pulmonary venous congestion. Bilateral infiltrates. No pneumothorax. Moderate cardiomegaly. Mediastinal and hilar contours are within normal limits. Bony thorax no acute abnormality. Impression: CHF. Superimposed probable pneumonia Reviewed, dictated and finalized at location A. Impression: CHF. Superimposed probable pneumonia
--- NOTE | ~2025-02-06 | US_ITS ---
Examination: Ultrasound of the retroperitoneum including kidneys and bladder. Clinical History: GERONIMO . Comparison: None available. Findings: Right kidney: 11 cm. Normal echogenicity. No collecting system dilatation. No shadowing calculi. Left kidney: 10 cm. Normal echogenicity. No collecting system dilatation. No shadowing calculi. 2.1 cm simple cyst. Urinary bladder: No wall thickening or focal abnormality. Right ureteral jet not seen. Ascites. IMPRESSION: 1. No hydronephrosis. Reviewed, dictated and finalized at location R. IMPRESSION: 1. No hydronephrosis.
--- NOTE | ~2025-02-06 | CT_ITS ---
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 White matter changes, typically chronic microvascular ischemic disease Sulci, ventricles: Unremarkable. No intracerebral hemorrhage. No evidence acute territorial infarct. No mass effect, midline shift. Bony calvarium intact. Visualized paranasal sinuses: Clear. Mastoid air cells: Clear. IMPRESSION: 1. No acute intracranial findings. Reviewed, dictated and finalized at location R.
--- NOTE | ~2025-02-06 | XR_ITS ---
EXAMINATION: XR chest 1V portable COMPARISON: No comparisons available. HISTORY: CHF/pleural effusions/hypoxia FINDINGS: Moderate pulmonary venous congestion. Moderate basilar infiltrates and effusions. No pneumothorax. Moderate cardiomegaly. Mediastinal and hilar contours are within normal limits. Bony thorax no acute abnormality. Miscellaneous: None Impression: CHF. Superimposed pneumonia. The findings appear relatively unchanged Reviewed, dictated and finalized at location P. Impression: CHF. Superimposed pneumonia. The findings appear relatively unchanged
--- NOTE | ~2025-02-06 | XR_ITS ---
EXAMINATION: XR chest 1V portable COMPARISON: No comparisons available. HISTORY: follow pleural effusions FINDINGS: Moderate pulmonary venous congestion. Small to moderate basilar infiltrates and effusions. No pneumothorax. Moderate cardiomegaly. Mediastinal and hilar contours are within normal limits. Bony thorax no acute abnormality. Miscellaneous: None Impression: Mild improvement Reviewed, dictated and finalized at location A. Impression: Mild improvement
--- NOTE | ~2025-02-06 | XR_ITS ---
EXAMINATION: XR chest 1V portable COMPARISON: No comparisons available. HISTORY: follow pleural effusions FINDINGS: Moderate pulmonary venous congestion. Moderate bilateral infiltrates and effusions. No pneumothorax. Moderate cardiomegaly. Mediastinal and hilar contours are within normal limits. Bony thorax no acute abnormality. Miscellaneous: None Impression: CHF. Superimposed pneumonia is suspected. The findings are improved compared to the previous exam. Reviewed, dictated and finalized at location A. Impression: CHF. Superimposed pneumonia is suspected. The findings are improved compared to the previous exam.
--- NOTE | ~2025-02-06 | US_ITS ---
EXAMINATION: US thoracentesis DATE: 02/08/2025 14:18 INDICATION: pleural effusion TECHNIQUE: The procedure and its risks and benefits were discussed with the patient. Potential risks discussed included bleeding, infection, and pneumothorax. The patient understood the risks and agreed to proceed. The skin was prepped and draped in sterile fashion. 1% lidocaine was used for local anes thesia. Under ultrasound guidance, a 5 Fr catheter with trochar was advanced into the right pleural effusion. Fluid was aspirated. The catheter was removed, and a dressing was applied. There were no immediate complications. FINDINGS: Ultrasound images demonstrate a moderate-sized bilateral pleural effusions which appears slightly larger on the right. Subsequent images demonstrate the catheter within the fluid. IMPRESSION: 1. Successful ultrasound-guided thoracentesis yielding 1100 mL of straw-colored fluid. Reviewed, dictated and finalized at location A. IMPRESSION: 1. Successful ultrasound-guided thoracentesis yielding 1100 mL of straw-colore d fluid.
--- NOTE | ~2025-02-06 | XR_ITS ---
Examination: XR chest 1V portable Clinical History: follow pleural effusions Comparison: 1 day prior Technique: Portable AP Findings: Heart size unchanged. Large right and smaller left pleural effusions persist with associated bibasilar opacities. Persistent interstitial markings. No acute bony abnormality. IMPRESSION: 1. No significant change. 2. Pleural effusions, right side larger, with bibasilar atelectasis and/or airspace disease. 3. Interstitial pulmonary edema and/or pneumonitis. Reviewed, dictated and finalized at location R. IMPRESSION: 1. No significant change. 2. Pleural effusions, right side larger, with bibasilar atelectasis and/or air space disease. 3. Interstitial pulmonary edema and/or pneumonitis.
--- NOTE | ~2025-02-06 | XR_ITS ---
Examination: XR chest 1V portable Clinical History: effusions Comparison: 1 day prior Technique: Portable AP Findings: Heart size unchanged. Large right and small left pleural effusion with associated bibasilar opacities. Developing diffuse interstitial markings. Left lateral basilar linear interface. No acute bony abnormality. IMPRESSION: 1. Developing interstitial pulmonary edema and/or pneumonitis. 2. Large right and small left pleural effusion with associated basilar atelectasis and/or airspace disease. 3. Left basilar linear interface probably skinfold rather than pneumothorax but continued attention on future x-rays. Reviewed, dictated and finalized at location R. IMPRESSION: 1. Developing interstitial pulmonary edema and/or pneumonitis. 2. Large right and small left pleural effusion with associated basilar atelect asis and/or airspace disease. 3. Left basilar linear interface probably skinfold rather than pneumothorax bu t continued attention on future x-rays.
--- NOTE | ~2025-02-06 | XR_ITS ---
[id number] 02/08/2025 14:00 Indication: Postthoracentesis Procedure: AP upright view of the chest Comparison: 02/08/2025 Findings: Cardiomegaly. There is pulmonary edema. Bilateral pleural effusions. No pneumothorax identified post thoracentesis. No acute osseous abnormality. Impression: 1: No pneumothorax identified post thoracentesis. Reviewed, dictated and finalized at location O. Impression: 1: No pneumothorax identified post thoracentesis.
--- NOTE | ~2025-02-06 | XR_ITS ---
EXAMINATION: [id number] DATE: 02/09/2025 13:58 INDICATION: Pleural effusions post thoracentesis TECHNIQUE: frontal view of the chest was obtained. COMPARISON: Chest radiograph dated 02/08/25 FINDINGS: Significant decrease in size of a small left pleural effusion with improved aeration in the left midlung zone. Airspace opacities in the right mid to lower and left lower lung zones consistent with atelectasis and/or pneumonia. Mild interval increase in a likely rafly-ci-zoyhzhoa right pleural effusion. No pneumothorax. Heart size is normal. IMPRESSION: 1. Decreased now small left pleural effusion with improved aeration in the left lung zone. 2. Slight interval increase in a small to moderate right pleural effusion. 2. Airspace opacities the right mid to lower and left lower lung zones which could represent associated atelectasis and/or pneumonia. Reviewed, dictated and finalized at location A. IMPRESSION: 1. Decreased now small left pleural effusion with improved aeration in the left lung zone. 2. Slight interval increase in a small to moderate right pleural effusion. 2. Airspace opacities the right mid to lower and left lower lung zones which co uld represent associated atelectasis and/or pneumonia.
--- NOTE | 2025-02-06 10:14 | ECG_ITS ---
Test Date: 2025-02-06 10:21:42 Measurements Intervals [place] Rate: 104 P: 56 AK: 145 QRS: 41 QRSD: 97 T: 126 QT: 333 QTc: 439 Interpretive Statements SINUS TACHYCARDIA POSSIBLE LEFT ATRIAL ENLARGEMENT [-0.1mV P-WAVE IN V1/V2] ST DEVIATION AND MODERATE T-WAVE ABNORMALITY, CONSIDER LATERAL ISCHEMIA [-0.1+ mV T-WAVE IN I/aVL/V5/V6] No previous ECG available for comparison Electronically Signed On 02-06-2025 14:37:29 CDT by Ashutosh Casey M.D.
[2025-02-06 10:42] LABS: Hematocrit 42.0 % (42.0-52.0); Hemoglobin 12.8 g/dL (14.0-18.0); Immature Granulocyte Percent A 0.5 % (0-0.5); Lymphocytes Absolute Auto 0.74 K/mm3 (0.9-3.2); Mean Corpuscular HGB Conc 30.5 g/dl (32-36); Mean Corpuscular Hemoglobin 26.9 pg (26-34); Mean Corpuscular Volume 88.2 fl (80-100); Nucleated Red Blood Cells Absolute Auto 0.000 K/mm3 (0.0-0.012); Nucleated Red Blood Cells Perc 0.0 % (0.0-0.2); Platelet Count Result 150 k/mm3 (150-375); Red Blood Count 4.76 M/mm3 (4.6-6.20); White Blood Count 5.6 K/mm3 (4.5-10.0)
[2025-02-06 10:52] LABS: Alanine Aminotransferase 26 U/L (6-50); Albumin Level 3.7 g/dL (3.5-5.1); Alkaline Phosphatase 159 U/L (38-126); Anion Gap 6 mmol/L (4-12); Aspartate Amino Transferase 32 U/L (17-59); Bilirubin,Total 0.5 mg/dL (0.2-1.3); Blood Urea Nitrogen 34 mg/dL (9-20); Calcium 8.8 mg/dL (8.4-10.2); Carbon Dioxide 30 mmol/L (22-30); Chloride 106 mmol/L (98-107); Estimated Glomerular Filt Rate 46; Glucose 172 mg/dL (65-110); Potassium 4.4 mmol/L (3.4-5.0); Sodium 142 mmol/L (137-145); Total Protein 7.9 g/dL (6.3-8.2)
[2025-02-06 10:59] LABS: INR 1.1; Prothrombin Time 14.5 Seconds (11.1-14.7)
[2025-02-06 11:00] LABS: Partial Thromboplastin Time 28.3 Seconds (22.3-36.8)
--- NOTE | 2025-02-06 11:37 | ED_ITS ---
HPI - General Adult General Chief complaint: Altered Mental Status <Josephine Langley PA-C - Last Filed: 02/06/25 15:09> Stated complaint: sob, weak, dizzy, confused for few days <Josephine Langley PA-C - Last Filed: 02/06/25 15:09> Time Seen by Provider: 02/06/25 10:30 <Josephine Langley PA-C - Last Filed: 02/06/25 15:09> Source: patient and family <AMADOU Ngo Last Filed: 02/06/25 15:09> Mode of arrival: ambulatory <AMADOU Ngo Last Filed: 02/06/25 15:09> Limitations: no limitations <AMADOU Ngo Last Filed: 02/06/25 15:09> History of Present Illness HPI narrative: Patient is a 69-year-old male, with PMH of DM, HTN, HLD, prostate CA s/p radiation, bilateral BKA, who presents the ED with report of weakness, shortness of breath. Family member at bedside assisted in providing information. Reports patient has been increasingly weak and fatigued over the past couple of weeks, progressively worsening. Lives at home with his niece, but has had increased difficulty ambulating and caring for himself recently. Has been increasingly short of breath over the past 1 week. Reports mild cough. Denies fevers. Denies chest pain. Denies focal weakness/numbness. Family member states patient has been intermittent confused over the past couple days. Hx of mcfp smoking. <Josephine Langley PA-C - Last Filed: 02/06/25 15:09> Related Data Home medications: Home Medications ?Medication ?Instructions ?Recorded ?Confirmed ?Last Taken ?Type metformin 500 mg tablet 500 mg PO BID 11/07/2211/07 Unknown History <AMADOU Ngo Last Filed: 02/06/25 15:09> Allergies/adverse reactions: Allergies Allergy/AdvReac Type Severity Reaction Status Date / Time No Known Allergies Allergy Mild Verified 01/06/23 10:14 <Josephine Langley PA-C - Last Filed: 02/06/25 15:09> Review of Systems 2 Review of Systems: All systems reviewed & are unremarkable except as noted in HPI. <Josephine Langley PA-C - Last Filed: 02/06/25 15:09> All systems reviewed & are unremarkable except as noted in HPI and below < Josephine Langley PA-C - Last Filed: 02/06/25 15:09> FOR[facility]LY [facility] Past Medical History Medical History: Medical History Insulin dependent diabetes mellitus Hyperlipidemia Hypertension Tobacco dependence Polysubstance abuse Paroxysmal atrial fibrillation Prostate cancer Status post radiation. Gastroesophageal reflux disease Tuberculosis (2014) Diabetic retinopathy Hepatitis C Anxiety Depression <Josephine Langley PA-C - Last Filed: 02/06/25 15:09> Surgical History Surgical History: Surgical History History of right below knee amputation History of appendectomy History of tonsillectomy History of left below knee amputation <Josephine Langley PA-C - Last Filed: 02/06/25 15:09> Family History Family History: Family History Father Diabetes mellitus Son Heart disease Mother Heart disease Sibling Cerebral aneurysm <Josephine Langley PA-C - Last Filed: 02/06/25 15:09> Social History Social History: Social History Social History: Surrogate medical decision maker: Luma Blank, daughter. Code status: Full code. Smoking packs per day: 0.5 Smoking cigarettes per day: 10.0 Years smoked: 50 Smoking pack-years: 25.00 Smoking status: Current every day smoker Tobacco type: cigarettes Second hand tobacco smoke exposure: Yes Alcohol intake: former Drinks per week: 14 Substance use: current Substance use type: marijuana and amphetamines Lack of Transportation: YES Lack of Food: Often True Current Housing: I Do Not Have Housing Concerned About Future Housing: YES Difficulty Paying Gas/Electric Bills: YES Difficulty Paying for Meds: YES Currently Unemployed: No Education: Grade School Difficulty w/ Childcare or Family Care: No Living arrangements: with friend(s) Additional living arrangements comments: Currently staying with a friend. 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 Spiritual care concerns: No Agree to blood products: Yes <Josephine Langley PA-C - Last Filed: 02/06/25 15:09> Exam 2 Narrative: GENERAL: Appears older than stated age, chronically ill-appearing, thin/frail, in no acute distress. HEAD: Normocephalic, atraumatic. RESPIRATORY: Airway patent, respirations nonlabored. Decreased lung sounds throughout. Mild rhonchi in bases bilaterally. Occasional coughing CARDIOVASCULAR: Borderline tachycardic with regular rhythm without murmurs, rubs, or gallops. ABDOMINAL: Soft, nontender, nondistended. Normoactive BS. MUSCULOSKELETAL: Moves all extremities. No gross deformities. Bilateral BKA SKIN: Warm, dry, normal color. NEURO: A&O X3. Speech clear. Cranial nerves II-XII grossly intact. Steady gait. No ataxic movements. No pronator drift. Equal armhole baster jumpbasting strength bilaterally. Strength decreased in all extremities but equal bilaterally. PSYCHIATRIC: Appropriate mood and affect. Normal interaction. <Josephine Langley PA-C - Last Filed: 02/06/25 15:09> Course SUSTAINABILITY PROJECT COORDINATOR/PA Physician Supervision This visit was performed by both a physician and an APC. I performed all aspects of the MDM as documented. <Casa Retana MD - Last Filed: 02/06/25 18:25> Vital Signs Vital signs: Vital Signs Temperature 97.8 F 02/06/25 10:15 Pulse Rate 103 H 02/06/25 10:15 Respiratory Rate 19 02/06/25 10:15 Blood Pressure 170/94 H 02/06/25 10:15 Pulse Oximetry 96 02/06/25 10:15 Oxygen Delivery Nasal Cannula 02/06/25 10:15 Oxygen Flow Rate 3 02/06/25 10:15 Temperature 97.8 F 02/06/25 10:15 Pulse Rate 89 02/06/25 14:15 Respiratory Rate 17 02/06/25 14:15 Blood Pressure 175/91 H 02/06/25 14:02 Pulse Oximetry 94 02/06/25 15:21 Oxygen Delivery Nasal Cannula 02/06/25 15:21 Oxygen Flow Rate 3 02/06/25 15:21 <Josephine Langley PA-C - Last Filed: 02/06/25 15:09> Vital Signs Temperature 97.8 F 02/06/25 10:15 Pulse Rate 103 H 02/06/25 10:15 Respiratory Rate 19 02/06/25 10:15 Blood Pressure 170/94 H 02/06/25 10:15 Pulse Oximetry 96 02/06/25 10:15 Oxygen Delivery Nasal Cannula 02/06/25 10:15 Oxygen Flow Rate 3 02/06/25 10:15 Temperature 97.8 F 02/06/25 10:15 Pulse Rate 89 02/06/25 14:15 Respiratory Rate 17 02/06/25 14:15 Blood Pressure 175/91 H 02/06/25 14:02 Pulse Oximetry 94 02/06/25 15:21 Oxygen Delivery Nasal Cannula 02/06/25 15:21 Oxygen Flow Rate 3 02/06/25 15:21 <Casa Retana MD - Last Filed: 02/06/25 18:25> Medical Decision Making MDM Narrative Medical decision making narrative: Patient presented to ED with increased shortness breath, weakness, intermittent confusion. Patient mildly hypertensive, tachycardic upon arrival. Was noted to be hypoxic down to 88%. Placed on 3 L nasal cannula. Denies previous oxygen requirement or underlying lung disease. Life long smoker. Patient neurologically intact upon my examination, but very weak, requiring multiple person assist to get into ED stretcher. No focal deficits. Laboratory studies without leukocytosis. Hemoglobin is stable, possibly hemoconcentrated. Patient does appear somewhat dry. CMP with BUN of 34, creatinine 1.52. No recent records to compare to. Blood glucose stable but slightly elevated 172. No evidence of DKA. Normal LFTs. Viral swabs are negative. UA with evidence of infection, 1+ leuk esterase, 51-100 WBC. Sent for culture. Blood cultures obtained. Rocephin started in ED. CT brain without acute findings ABG on 3L with elevated PCO2, slight acidosis. O2 borderline at 92%. Will start bipap given new oxygen requirement, recent confusion. EKG with sinus tachycardia, some nonspecific ST changes/mild ST depression in lateral leads. Troponin undetectable. [place] [address]. D- dimer elevated. Chest x-ray concerning for CHF with superimposed PNA. CTA Chest/abd/pelvis obtained showing evidence of fluid overload with pleural effusions bilaterally, pericardial effusion, anasarca. Does also show consolidations in the lungs bilaterally. Azithromycin added for PNA coverage. Given lasix 40mg in the ED. Patient denies previous history of CHF. Not currently on any diuretic therapy. No PE on imaging. Does show evidence of cystitis Patient will be admitted for further evaluation, continued diuresis/IV abx, echo. Discussed case with Skyla Castano NP, accepted patient for admission. <Josephine Langley PA-C - Last Filed: 02/06/25 15:09> Medical Records Medical records reviewed: Yes I reviewed the external patient's medical records. <Josephine Langley PA-C - Last Filed: 02/06/25 15:09> Vital Signs Vital Signs: Vital Signs Temperature 97.8 F 02/06/25 10:15 Pulse Rate 103 H 02/06/25 10:15 Respiratory Rate 19 02/06/25 10:15 Blood Pressure 170/94 H 02/06/25 10:15 Pulse Oximetry 96 02/06/25 10:15 Oxygen Delivery Nasal Cannula 02/06/25 10:15 Oxygen Flow Rate 3 02/06/25 10:15 Temperature 97.8 F 02/06/25 10:15 Pulse Rate 89 02/06/25 14:15 Respiratory Rate 17 02/06/25 14:15 Blood Pressure 175/91 H 02/06/25 14:02 Pulse Oximetry 94 02/06/25 15:21 Oxygen Delivery Nasal Cannula 02/06/25 15:21 Oxygen Flow Rate 3 02/06/25 15:21 <Josephine Langley PA-C - Last Filed: 02/06/25 15:09> Vital Signs Temperature 97.8 F 02/06/25 10:15 Pulse Rate 103 H 02/06/25 10:15 Respiratory Rate 19 02/06/25 10:15 Blood Pressure 170/94 H 02/06/25 10:15 Pulse Oximetry 96 02/06/25 10:15 Oxygen Delivery Nasal Cannula 02/06/25 10:15 Oxygen Flow Rate 3 02/06/25 10:15 Temperature 97.8 F 02/06/25 10:15 Pulse Rate 89 02/06/25 14:15 Respiratory Rate 17 02/06/25 14:15 Blood Pressure 175/91 H 02/06/25 14:02 Pulse Oximetry 94 02/06/25 15:21 Oxygen Delivery Nasal Cannula 02/06/25 15:21 Oxygen Flow Rate 3 02/06/25 15:21 <Casa Retana MD - Last Filed: 02/06/25 18:25> Lab Data Lab results reviewed: Yes I reviewed the patient's lab results. <Josephine Langley PA-C - Last Filed: 02/06/25 15:09> Result diagrams: 02/06/25 10:34 02/06/25 10:34 <Josephine Langley PA-C - Last Filed: 02/06/25 15:09> Labs: Lab Results 02/06/25 02/06/25 02/06/25 Range/Units 10:23 10:34 11:00 WBC 5.6 (4.5-10.0) K/mm3 RBC 4.76 (4.6-6.20) M/mm3 Hgb 12.8 L D (14.0-18.0) g/dL Hct 42.0 (42.0-52.0) % MCV 88.2 (80-100) fl MCH 26.9 (26-34) pg MCHC 30.5 L (32-36) g/dl RDW 14.9 H (11.5-14.5) % Plt Count 150 D (150-375) k/mm3 MPV 11.7 H (7.4-10.4) fl Immature Gran % (Auto) 0.5 (0-0.5) % Neut % (Auto) 79.7 H (45.5-73.1) % Lymph % (Auto) 13.1 L (18.3-44.2) % [place] % (Auto) 5.7 (2.6-8.5) % Eos % (Auto) 0.5 (0-4.4) % Baso % (Auto) 0.5 (0.2-1.2) % Lymph # (Auto) 0.74 L (0.9-3.2) K/mm3 [place] # (Auto) 0.3 (0.1-0.6) K/mm3 Eos # (Auto) 0.0 (0-0.3) K/mm3 Baso # (Auto) 0.0 (0.0-0.1) K/mm3 Abs Immat Gran (auto) 0.03 (0.00-0.031) K/mm3 Absolute Neuts (auto) 4.5 (1.3-6.7) K/mm3 Absolute Nucleated RBC 0.000 (0.0-0.012) K/mm3 Nucleated RBC % 0.0 (0.0-0.2) % PT 14.5 (11.1-14.7) Seconds INR 1.1 APTT 28.3 (22.3-36.8) Seconds D-Dimer 0.96 H (<0.48) ug/mL Methemoglobin (0-1.5) %THb Sodium 142 (137-145) mmol/L Potassium 4.4 (3.4-5.0) mmol/L Chloride 106 (98-107) mmol/L Carbon Dioxide 30 (22-30) mmol/L Anion Gap 6 (4-12) mmol/L BUN 34 H D (9-20) mg/dL Creatinine 1.52 H (0.7-1.3) mg/dL Estim Creat Clear Calc Not Reportable Estimated GFR 46 L (59 - ) Glucose 172 H (65-110) mg/dL POC Capillary Glucose 165 H (65-105) mg/dl Calcium 8.8 (8.4-10.2) mg/dL Total Bilirubin 0.5 (0.2-1.3) mg/dL AST 32 (17-59) U/L ALT 26 (6-50) U/L Alkaline Phosphatase 159 H (38-126) U/L Troponin I < 0.012 (0.000-0.034) ng/mL NT-Pro-B Natriuret Pep 41858 H (19.9-100) pg/mL Total Protein 7.9 (6.3-8.2) g/dL Albumin 3.7 (3.5-5.1) g/dL Urine Color (Yellow) Urine Appearance (Clear) Urine pH (5.0-9.0) Ur Specific [place] (1.001-1.035) Urine Protein (Negative) mg/dL Urine Glucose (UA) (Negative) mg/dL Urine Ketones (Negative) mg/dL Ur Blood (Man) (Negative) Urine Nitrate (Negative) Urine Bilirubin (Negative) Urine Urobilinogen (<2.0) mg/dL Add Ur Microanalysis Leukocyte Esterase Rfl (Negative) LAMBERT/UL Urine RBC (0-2) /hpf Urine WBC (0-3) /hpf Ur Squamous Epith Cells (Few) /hpf Urine Bacteria /hpf Urine Casts Granular Casts (None) /lpf Influenza A (RT-PCR) Negative (Negative) Influenza B (RT-PCR) Negative (Negative) RSV (RT-PCR) Negative (Negative) SARS-CoV-2 RNA (RT-PCR) Negative (Negative) 02/06/25 02/06/25 Range/Units 11:39 11:59 WBC (4.5-10.0) K/mm3 RBC (4.6-6.20) M/mm3 Hgb (14.0-18.0) g/dL Hct (42.0-52.0) % MCV (80-100) fl MCH (26-34) pg MCHC (32-36) g/dl RDW (11.5-14.5) % Plt Count (150-375) k/mm3 MPV (7.4-10.4) fl Immature Gran % (Auto) (0-0.5) % Neut % (Auto) (45.5-73.1) % Lymph % (Auto) (18.3-44.2) % [place] % (Auto) (2.6-8.5) % Eos % (Auto) (0-4.4) % Baso % (Auto) (0.2-1.2) % Lymph # (Auto) (0.9-3.2) K/mm3 [place] # (Auto) (0.1-0.6) K/mm3 Eos # (Auto) (0-0.3) K/mm3 Baso # (Auto) (0.0-0.1) K/mm3 Abs Immat Gran (auto) (0.00-0.031) K/mm3 Absolute Neuts (auto) (1.3-6.7) K/mm3 Absolute Nucleated RBC (0.0-0.012) K/mm3 Nucleated RBC % (0.0-0.2) % PT (11.1-14.7) Seconds INR APTT (22.3-36.8) Seconds D-Dimer (<0.48) ug/mL Methemoglobin 0.2 (0-1.5) %THb Sodium (137-145) mmol/L Potassium (3.4-5.0) mmol/L Chloride (98-107) mmol/L Carbon Dioxide (22-30) mmol/L Anion Gap (4-12) mmol/L BUN (9-20) mg/dL Creatinine (0.7-1.3) mg/dL Estim Creat Clear Calc Estimated GFR (59 - ) Glucose (65-110) mg/dL POC Capillary Glucose (65-105) mg/dl Calcium (8.4-10.2) mg/dL Total Bilirubin (0.2-1.3) mg/dL AST (17-59) U/L ALT (6-50) U/L Alkaline Phosphatase (38-126) U/L Troponin I (0.000-0.034) ng/mL NT-Pro-B Natriuret Pep (19.9-100) pg/mL Total Protein (6.3-8.2) g/dL Albumin (3.5-5.1) g/dL Urine Color Dark yellow (Yellow) Urine Appearance Cloudy H (Clear) Urine pH 5.0 (5.0-9.0) Ur Specific [place] 1.023 (1.001-1.035) Urine Protein 4+ H (Negative) mg/dL Urine Glucose (UA) Trace H (Negative) mg/dL Urine Ketones Trace H (Negative) mg/dL Ur Blood (Man) 2+ H (Negative) Urine Nitrate Negative (Negative) Urine Bilirubin Negative (Negative) Urine Urobilinogen 1.0 (<2.0) mg/dL Add Ur Microanalysis Reviewed Leukocyte Esterase Rfl 1+ H (Negative) LAMBERT/UL Urine RBC 11-20 H (0-2) /hpf Urine WBC 51-100 H (0-3) /hpf Ur Squamous Epith Cells Occasional (Few) /hpf Urine Bacteria None seen /hpf Urine Casts >20 Granular Casts 3-4 H (None) /lpf Influenza A (RT-PCR) (Negative) Influenza B (RT-PCR) (Negative) RSV (RT-PCR) (Negative) SARS-CoV-2 RNA (RT-PCR) (Negative) <Josephine Langley PA-C - Last Filed: 02/06/25 15:09> Lab Results 02/06/25 02/06/25 02/06/25 Range/Units 10:23 10:34 11:00 WBC 5.6 (4.5-10.0) K/mm3 RBC 4.76 (4.6-6.20) M/mm3 Hgb 12.8 L D (14.0-18.0) g/dL Hct 42.0 (42.0-52.0) % MCV 88.2 (80-100) fl MCH 26.9 (26-34) pg MCHC 30.5 L (32-36) g/dl RDW 14.9 H (11.5-14.5) % Plt Count 150 D (150-375) k/mm3 MPV 11.7 H (7.4-10.4) fl Immature Gran % (Auto) 0.5 (0-0.5) % Neut % (Auto) 79.7 H (45.5-73.1) % Lymph % (Auto) 13.1 L (18.3-44.2) % [place] % (Auto) 5.7 (2.6-8.5) % Eos % (Auto) 0.5 (0-4.4) % Baso % (Auto) 0.5 (0.2-1.2) % Lymph # (Auto) 0.74 L (0.9-3.2) K/mm3 [place] # (Auto) 0.3 (0.1-0.6) K/mm3 Eos # (Auto) 0.0 (0-0.3) K/mm3 Baso # (Auto) 0.0 (0.0-0.1) K/mm3 Abs Immat Gran (auto) 0.03 (0.00-0.031) K/mm3 Absolute Neuts (auto) 4.5 (1.3-6.7) K/mm3 Absolute Nucleated RBC 0.000 (0.0-0.012) K/mm3 Nucleated RBC % 0.0 (0.0-0.2) % PT 14.5 (11.1-14.7) Seconds INR 1.1 APTT 28.3 (22.3-36.8) Seconds D-Dimer 0.96 H (<0.48) ug/mL Methemoglobin (0-1.5) %THb Sodium 142 (137-145) mmol/L Potassium 4.4 (3.4-5.0) mmol/L Chloride 106 (98-107) mmol/L Carbon Dioxide 30 (22-30) mmol/L Anion Gap 6 (4-12) mmol/L BUN 34 H D (9-20) mg/dL Creatinine 1.52 H (0.7-1.3) mg/dL Estim Creat Clear Calc Not Reportable Estimated GFR 46 L (59 - ) Glucose 172 H (65-110) mg/dL POC Capillary Glucose 165 H (65-105) mg/dl Calcium 8.8 (8.4-10.2) mg/dL Total Bilirubin 0.5 (0.2-1.3) mg/dL AST 32 (17-59) U/L ALT 26 (6-50) U/L Alkaline Phosphatase 159 H (38-126) U/L Troponin I < 0.012 (0.000-0.034) ng/mL NT-Pro-B Natriuret Pep 92646 H (19.9-100) pg/mL Total Protein 7.9 (6.3-8.2) g/dL Albumin 3.7 (3.5-5.1) g/dL Urine Color (Yellow) Urine Appearance (Clear) Urine pH (5.0-9.0) Ur Specific [place] (1.001-1.035) Urine Protein (Negative) mg/dL Urine Glucose (UA) (Negative) mg/dL Urine Ketones (Negative) mg/dL Ur Blood (Man) (Negative) Urine Nitrate (Negative) Urine Bilirubin (Negative) Urine Urobilinogen (<2.0) mg/dL Add Ur Microanalysis Leukocyte Esterase Rfl (Negative) LAMBERT/UL Urine RBC (0-2) /hpf Urine WBC (0-3) /hpf Ur Squamous Epith Cells (Few) /hpf Urine Bacteria /hpf Urine Casts Granular Casts (None) /lpf Influenza A (RT-PCR) Negative (Negative) Influenza B (RT-PCR) Negative (Negative) RSV (RT-PCR) Negative (Negative) SARS-CoV-2 RNA (RT-PCR) Negative (Negative) 02/06/25 02/06/25 Range/Units 11:39 11:59 WBC (4.5-10.0) K/mm3 RBC (4.6-6.20) M/mm3 Hgb (14.0-18.0) g/dL Hct (42.0-52.0) % MCV (80-100) fl MCH (26-34) pg MCHC (32-36) g/dl RDW (11.5-14.5) % Plt Count (150-375) k/mm3 MPV (7.4-10.4) fl Immature Gran % (Auto) (0-0.5) % Neut % (Auto) (45.5-73.1) % Lymph % (Auto) (18.3-44.2) % [place] % (Auto) (2.6-8.5) % Eos % (Auto) (0-4.4) % Baso % (Auto) (0.2-1.2) % Lymph # (Auto) (0.9-3.2) K/mm3 [place] # (Auto) (0.1-0.6) K/mm3 Eos # (Auto) (0-0.3) K/mm3 Baso # (Auto) (0.0-0.1) K/mm3 Abs Immat Gran (auto) (0.00-0.031) K/mm3 Absolute Neuts (auto) (1.3-6.7) K/mm3 Absolute Nucleated RBC (0.0-0.012) K/mm3 Nucleated RBC % (0.0-0.2) % PT (11.1-14.7) Seconds INR APTT (22.3-36.8) Seconds D-Dimer (<0.48) ug/mL Methemoglobin 0.2 (0-1.5) %THb Sodium (137-145) mmol/L Potassium (3.4-5.0) mmol/L Chloride (98-107) mmol/L Carbon Dioxide (22-30) mmol/L Anion Gap (4-12) mmol/L BUN (9-20) mg/dL Creatinine (0.7-1.3) mg/dL Estim Creat Clear Calc Estimated GFR (59 - ) Glucose (65-110) mg/dL POC Capillary Glucose (65-105) mg/dl Calcium (8.4-10.2) mg/dL Total Bilirubin (0.2-1.3) mg/dL AST (17-59) U/L ALT (6-50) U/L Alkaline Phosphatase (38-126) U/L Troponin I (0.000-0.034) ng/mL NT-Pro-B Natriuret Pep (19.9-100) pg/mL Total Protein (6.3-8.2) g/dL Albumin (3.5-5.1) g/dL Urine Color Dark yellow (Yellow) Urine Appearance Cloudy H (Clear) Urine pH 5.0 (5.0-9.0) Ur Specific [place] 1.023 (1.001-1.035) Urine Protein 4+ H (Negative) mg/dL Urine Glucose (UA) Trace H (Negative) mg/dL Urine Ketones Trace H (Negative) mg/dL Ur Blood (Man) 2+ H (Negative) Urine Nitrate Negative (Negative) Urine Bilirubin Negative (Negative) Urine Urobilinogen 1.0 (<2.0) mg/dL Add Ur Microanalysis Reviewed Leukocyte Esterase Rfl 1+ H (Negative) LAMBERT/UL Urine RBC 11-20 H (0-2) /hpf Urine WBC 51-100 H (0-3) /hpf Ur Squamous Epith Cells Occasional (Few) /hpf Urine Bacteria None seen /hpf Urine Casts >20 Granular Casts 3-4 H (None) /lpf Influenza A (RT-PCR) (Negative) Influenza B (RT-PCR) (Negative) RSV (RT-PCR) (Negative) SARS-CoV-2 RNA (RT-PCR) (Negative) <Casa Retana MD - Last Filed: 02/06/25 18:25> ABG Data ABG results: 02/06/25 11:59 Puncture Site Left radial ABG pH 7.305 L ABG pCO2 64.0 H* ABG pO2 72.6 L ABG PO2/FiO2 Ratio 2.42 ABG HCO3 31.1 H ABG O2 Saturation 92.7 L ABG O2 Content 15.9 L ABG Base Excess 3.2 A-a Gradient 66.1 Oxyhemoglobin 90.1 Carboxyhemoglobin 3.0 H Reduced Hemoglobin 6.7 H Total Hemoglobin 12.5 O2 Delivery Device Nasal cannula O2 Liters/Min 3.0 FiO2 30 <Josephine Langley PA-C - Last Filed: 02/06/25 15:09> 02/06/25 11:59 Puncture Site Left radial ABG pH 7.305 L ABG pCO2 64.0 H* ABG pO2 72.6 L ABG PO2/FiO2 Ratio 2.42 ABG HCO3 31.1 H ABG O2 Saturation 92.7 L ABG O2 Content 15.9 L ABG Base Excess 3.2 A-a Gradient 66.1 Oxyhemoglobin 90.1 Carboxyhemoglobin 3.0 H Reduced Hemoglobin 6.7 H Total Hemoglobin 12.5 O2 Delivery Device Nasal cannula O2 Liters/Min 3.0 FiO2 30 <Casa Retana MD - Last Filed: 02/06/25 18:25> Attestation: I personally reviewed and interpreted this ABG as follows: <Josephine Langley PA-C - Last Filed: 02/06/25 15:09> Imaging Data Attestation: I personally reviewed and interpreted this imaging study as follows: < Josephine Langley PA-C - Last Filed: 02/06/25 15:09> Radiologist's impression: ITS Impressions Head CT 02/06/25 12:24 IMPRESSION: 1. No acute intracranial findings. Chest X-Ray 02/06/25 12:41 Impression: CHF. Superimposed probable pneumonia Chest/Abdomen/Pelvis CTA 02/06/25 13:40 IMPRESSION: 1. No pulmonary embolism identified. 2. Moderate-sized bilateral pleural effusions. 3. Moderate-sized consolidations in the lower lobes and right middle lobe. Recommend follow-up to resolution. 4. Small to moderate size ground glass opacity scattered throughout both lungs most prominent in the upper lobes. Recommend follow-up to resolution. 5. Moderate-sized pericardial effusion. 6. Cholelithiasis. 7. Small amount of fluid and fat stranding scattered throughout the abdomen and pelvis for prominent in the right abdomen. 8. Concentric thickening of the cintron of the moderately distended bladder. Differential includes incomplete bladder wall distention, cystitis or sequelae from bladder outlet obstruction. 9. Moderate nonspecific anasarca. 10. Small bilateral fat-containing inguinal hernias, larger on the right which also contains fluid <Josephine Langley PA-C - Last Filed: 02/06/25 15:09> ECG Data EKG #1: Attestation: I personally reviewed and interpreted this ECG as follows: <Josephine Langley PA-C - Last Filed: 02/06/25 15:09> ECG completion date: 02/06/25 <AMADOU Ngo Last Filed: 02/06/25 15:09> ECG completion time: 10:21 <AMADOU Ngo Last Filed: 02/06/25 15:09> EKG Interpretation: tachycardia (104), sinus rhythm, non-specific ST changes and ST depression <AMADOU Ngo Last Filed: 02/06/25 15:09> Discharge Plan Discharge Clinical Impression: Weakness, Acute on chronic respiratory failure with hypoxia and hypercapnia, Elevated brain natriuretic peptide (BNP) level, Pleural effusion UTI (urinary tract infection) Qualifiers: Urinary tract infection type: acute cystitis Hematuria presence: with hematuria Qualified Code(s): N30.01 - Acute cystitis with hematuria Fluid overload Qualifiers: Hypervolemia type: other Qualified Code(s): E87.79 - Other fluid overload Pneumonia Qualifiers: Pneumonia type: due to unspecified organism Laterality: bilateral Lung location: unspecified part of lung Qualified Code(s): J18.9 - Pneumonia, unspecified organism <Josephine Langley PA-C - Last Filed: 02/06/25 15:09> Patient Disposition: Still a Patient <Josephine Langley PA-C - Last Filed: 02/06/25 15:09> Condition: Serious <AMADOU Ngo Last Filed: 02/06/25 15:09>
[2025-02-06 11:42] LABS: Influenza A QL RT-PCR Negative (Negative); Influenza B QL RT-PCR Negative (Negative); RSV RNA, RT-PCR Negative (Negative); SARS-CoV-2 RNA PCR Negative (Negative)
[2025-02-06] MEDS: SODIUM CHLORIDE 0.9% IV 1,000 ML 999 ML IV CONT (11:55)
[2025-02-06 12:07] LABS: Alveolar/Arterial O2 Gradient 66.1 mmHg; Carboxyhemoglobin 3.0 % THb (0-2.0); Fractional Inspired Oxygen 30 %; HCO3 ABG 31.1 mEq/l (22.0-26.0); Methemoglobin ABG 0.2 %THb (0-1.5); Oxygen Content ABG 15.9 %vol (16.0-22.0); Oxygen Saturation ABG 92.7 % (95.0-100.0); PO2 ABG 72.6 mmHg (80.0-100.0); PO2 FiO2 Ratio Arterial Blood 2.42 %; Reduced Hemoglobin 6.7 %THb (0-5.0)
[2025-02-06 12:07] LABS: NT Pro B Type Natriuretic Pept 11000 pg/mL (19.9-100)
[2025-02-06 12:12] LABS: Add Urine Microscopic? YES; Appearance Urine Cloudy (Clear); Glucose Urine UA Trace mg/dL (Negative); Leukocyte Esterase Ur 1+ LEU/UL (Negative); Need Manual Microscopic Reviewed; Nitrate Urine Negative (Negative); Non Pathogenic Casts >20; Specific Grav Ur 1.023 (1.001-1.035)
[2025-02-06 12:13] LABS: PCO2 ABG 64.0 mmHg (35.0-45.0)
[2025-02-06 12:37] LABS: Troponin I < 0.012 ng/mL (0.000-0.034)
--- NOTE | 2025-02-06 12:53 | PC.NURSE ---
Patient refusing bipap at this time. Will inform provider
[2025-02-06 12:57] LABS: Liters per Minute 3.0 LPM; Modified Allen's Test Pass; Site Drawn LEFT RADIAL
[2025-02-06] MEDS: FUROSEMIDE INJ 40 MG/4 ML VIAL IV PUSH ×2 (13:01→21:39)
[2025-02-06] MEDS: cefTRIAXone 1 GM in SODIUM CHLORIDE 0.9% IV 50 ML 100 ML IVPB (13:02)
[2025-02-06] MEDS: AZITHROMYCIN IV 500 MG in SODIUM CHLORIDE 0.9% IV 250 ML IVPB (14:01)
--- NOTE | 2025-02-06 14:04 | PCRCNOTE ---
attempted Bipap several times and pt refuses. RN aware.
--- NOTE | 2025-02-06 14:07 | PC.NURSE ---
Patient agrees to try bipap machine after provider explained to patient
--- NOTE | 2025-02-06 14:48 | PC.NURSE ---
Patient tolerating bipap well. Provider aware.
--- NOTE | 2025-02-06 15:20 | PC.NURSE ---
Patient's bipap began to alarm. This RN went to patient's room and noticed patient removed bipap mask from his face. When asked if he will put it back on he states Im done with it. Patient refused to put mask back on. Nasal canula placed back on patient at 3L oxygen. Will inform provider.
--- NOTE | 2025-02-06 15:22 | PM.IMHP ---
H&P: HPI History of Present Illness Date/Time: 02/06/25 15:22 Chief Complaint: Shortness of Breath, Weakness Narrative: 69 y/o M with PMH of pAfib, prostate cancer s/p radiation, bilateral BKA, TB (2104), polysubstance abuse, hepatitis C, GERD, HLD, HTN, DM, and anxiety/depression presents here with generalized weakness and shortness of breath. The patient presents here from home on 02/06 for further evaluation of generalized weakness, difficulty walking, and shortness of breath. HPI obtained through patient report, family member report, and chart review. He reports onset of generalized weakness approximately 2 weeks ago. Since onset they have been progressively worsening and he has begun having difficulty ambulating and caring for himself. He reports associated fatigue, chills, mild productive cough, and shortness of breath that have developed in the last week. Family is additionally concerned as they have noticed intermittent confusion over the past few days. He denies associated focal weakness, focal numbness, fever, body aches, chest pain, nausea, vomiting, or diarrhea. Reports chronic abdominal pain - periumbilical. Patient is currently a poor historian. Does not wear supplemental O2 at baseline. Initial VS at presentation: 97.8? F, HR 103, RR 19, 170/94, and 96% on 3L nasal cannula. ED workup showed: No leukocytosis, hemoglobin 12.8, normal coags, elevated D-dimer, CO2 64.0 on ABG, no significant electrolyte derangements, creatinine 1.52 and GFR 46 (0.8 and GFR >60 in 2022), glucose 165, BNP 43481, and UA concerning for UTI. Viral PCR negative. Head CT showed no acute intracranial findings. CXR showed CHF with superimposed probable pneumonia. CTA chest/abdomen/pelvis showed no PE, moderate sized bilateral pleural effusions, moderate sized consolidations in the lower lobes/right middle lobe, small to moderate-sized ground-glass opacities scattered throughout both lungs most prominent in the upper lobes, moderate sized pericardial effusion, cholelithiasis, small amount of fluid/fat stranding scattered throughout the abdomen and pelvis (prominent in the right abdomen), concentric thickening of the cintron of the moderately distended bladder, moderate nonspecific anasarca, small bilateral fat containing inguinal hernias (larger on the right which also contains fluid). EKG showed sinus tachycardia, possible left atrial enlargement, ST deviation and moderate T-wave abnormality, rate 104. Review of Systems Review of Systems: All systems reviewed & are unremarkable except as noted in HPI and below PMFSH Past Medical History Medical History Insulin dependent diabetes mellitus Hyperlipidemia Hypertension Tobacco dependence Polysubstance abuse Paroxysmal atrial fibrillation Prostate cancer Status post radiation. Gastroesophageal reflux disease Tuberculosis (2014) Diabetic retinopathy Hepatitis C Anxiety Depression Surgical History Surgical History History of right below knee amputation History of appendectomy History of tonsillectomy History of left below knee amputation Family History Family History Father Diabetes mellitus Son Heart disease Mother Heart disease Sibling Cerebral aneurysm Social History Social History Social History: Surrogate medical decision maker: Luma Blank, daughter. Code status: Full code. Smoking packs per day: 0.5 Smoking cigarettes per day: 10.0 Years smoked: 54 Smoking pack-years: 27.00 Smoking status: Light tobacco smoker Tobacco type: cigarettes Second hand tobacco smoke exposure: Yes Alcohol intake: never Drinks per week: 14 Substance use: never Substance use type: marijuana and amphetamines Lack of Transportation: YES Lack of Food: Often True Current Housing: I Have Housing Concerned About Future Housing: YES Difficulty Paying Gas/Electric Bills: YES Difficulty Paying for Meds: YES Currently Unemployed: No Education: High School Diploma/GED Difficulty w/ Childcare or Family Care: No Living arrangements: with friend(s) Additional living arrangements comments: Currently staying with a friend. 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 Spiritual care concerns: No Agree to blood products: Yes Meds Home Medications and Allergies Home Medications ?Medication ?Instructions ?Recorded ?Confirmed ?Type metformin 500 mg tablet 500 mg PO BID 11/07/22 02/06/25 History insulin glargine 100 unit/mL (3 15 unit (0.15 mL) subcut HS #15 mL 11/14/22 02/06/25 Rx mL) subcutaneous pen (Lantus Solostar U-100 Insulin) insulin lispro 100 unit/mL 4 unit (0.04 mL) subcut AC #15 mL 11/14/22 02/06/25 Rx subcutaneous pen sertraline 50 mg tablet (Zoloft) 25 mg (1/2 x 50 mg) PO QAM #30 tabs 11/14/22 02/06/25 Rx Allergies Allergy/AdvReac Type Severity Reaction Status Date / Time No Known Allergies Allergy Mild Verified 02/06/25 18:35 Vital Signs Vital Signs - 24 hr 02/06/25 10:15 02/06/25 10:25 02/06/25 12:55 Temperature 97.8 F Pulse Rate 103 H 97 Respiratory Rate 19 20 Blood Pressure 170/94 H 171/92 H Pulse Oximetry 96 96 92 Oxygen Delivery Nasal Cannula Nasal Cannula Oxygen Flow Rate 3 3 02/06/25 14:02 02/06/25 14:15 02/06/25 14:48 Temperature Pulse Rate 100 89 Respiratory Rate 24 H 17 Blood Pressure 175/91 H Pulse Oximetry 92 98 96 Oxygen Delivery BiPAP BiPAP Oxygen Flow Rate 02/06/25 15:21 Temperature Pulse Rate Respiratory Rate Blood Pressure Pulse Oximetry 94 Oxygen Delivery Nasal Cannula Oxygen Flow Rate 3 Exam Const: General: comfortable and no acute distress Other: , male, older than stated age, acute on chronic ill appearance. Disheveled. HENMT: Face/Nose/Sinus: Normal nares present Mouth: Yes dry mucous membranes Eyes: General: appearance normal, both eyes and all related structures Sclera: sclerae normal Pupils: Equal, round and reactive pupils present EOM: EOMs intact bilaterally Resp: Effort & Inspection: normal respiratory effort Other: absent on the right starting mid lung to base, decreased from mid lung to base on the left. Faint crackles noted to the left lung base. No wheezing. Nasal cannula place. Cardio: Rate: regular rate Rhythm: regular rhythm Other: S1-S2 present without murmur, rub, ectopy GI: Other: Abdomen soft, nondistended, nontender. Normoactive bowel sounds in all quadrants. Skin: General skin exam: normal color and no rashes or lesions noted Wounds: no wounds Neuro: Speech: normal speech Motor exam (neuro): 5/5 motor strength present throughout Sensory Exam: normal sensation Other: Generalized weakness, A&O x3 Extrem: Other: bilateral BKA. no edema noted to bilateral thighs. Psych: Mental Status: mental status grossly normal Affect: Sad affect present Other: Fair to poor insight and judgment. H&P: Results Labs Labs: Short CBC 02/06/25 Range/Units 10:34 WBC 5.6 (4.5-10.0) K/mm3 Hgb 12.8 L D (14.0-18.0) g/dL Hct 42.0 (42.0-52.0) % Plt Count 150 D (150-375) k/mm3 BMP 02/06/25 10:34 Sodium 142 Potassium 4.4 Chloride 106 Carbon Dioxide 30 BUN 34 H D Creatinine 1.52 H Glucose 172 H Calcium 8.8 Cardiac Enzymes 02/06/25 Range/Units 10:34 Troponin I < 0.012 (0.000-0.034) ng/mL Liver Function 02/06/25 Range/Units 10:34 Total Bilirubin 0.5 (0.2-1.3) mg/dL AST 32 (17-59) U/L ALT 26 (6-50) U/L Alkaline Phosphatase 159 H (38-126) U/L Albumin 3.7 (3.5-5.1) g/dL Urine 02/06/25 Range/Units 11:39 Urine Color Dark yellow (Yellow) Urine Appearance Cloudy H (Clear) Urine pH 5.0 (5.0-9.0) Ur Specific [place] 1.023 (1.001-1.035) Urine Protein 4+ H (Negative) mg/dL Urine Glucose (UA) Trace H (Negative) mg/dL Assessment and Plan Assessment and plan (1) Sepsis: Qualifiers: Sepsis acute organ dysfunction status: without acute organ dysfunction Sepsis type: sepsis due to unspecified organism Qualified Code(s): A41.9 - Sepsis, unspecified organism Code(s): A41.9 - Sepsis, unspecified organism Status: Acute Assessment and Plan: - meets SIRS criteria: HR >90, RR >20. +Hypoxia, -HypoTN. Blood cultures obtained on 02/06, follow. - CXR, 02/06: CHF. Superimposed probable pneumonia - CTA chest/abdomen/pelvis, 02/06: 1. No pulmonary embolism identified. 2. Moderate-sized bilateral pleural effusions. 3. Moderate-sized consolidations in the lower lobes and right middle lobe. Recommend follow-up to resolution. 4. Small to moderate size ground glass opacity scattered throughout both lungs most prominent in the upper lobes. Recommend follow-up to resolution. 5. Moderate-sized pericardial effusion. 6. Cholelithiasis. 7. Small amount of fluid and fat stranding scattered throughout the abdomen and pelvis for prominent in the right abdomen. 8. Concentric thickening of the cintron of the moderately distended bladder. Differential includes incomplete bladder wall distention, cystitis or sequelae from bladder outlet obstruction. 9. Moderate nonspecific anasarca. 10. Small bilateral fat-containing inguinal hernias, larger on the right which also contains fluid - check lactic and procalcitonin >> 0.9 and procal 0.1 - given 1L bolus, hold on further fluids due to concern for significant volume overload on imaging, see CHF. - suspected source -> pneumonia and possible UTI, started on broad spectrum abx - monitor hemodynamic stability and O2 saturation (2) Acute on chronic respiratory failure with hypoxia and hypercapnia: Code(s): J96.21 - Acute and chronic respiratory failure with hypoxia; J96.22 - Acute and chronic respiratory failure with hypercapnia Status: Acute Assessment and Plan: - ABG, initial: PH 7.305, CO2 64, HC03 31.1, O2 saturation 92.7% on 3L - imaging concerning for significant volume overload as evidenced by moderate pleural effusions, moderate nonspecific anasarca, moderate sized pericardial effusion - imaging additionally concern for multifocal pneumonia - CTA negative for PE Acute respiratory failure air likely multifactorial including suspected CHF, multifocal pneumonia. Patient is an everyday smoker (1PPD), could have COPD component -> adding prednisone 40 mg PO x5 days. Started on nebulizers p.r.n., add diuretics, broad-spectrum antibiotics, and BiPAP. Patient hesitant to start BiPAP, was agreeable to trying for 1 hour, now off and reporting no improvement. DNR/DNI. (3) Pneumonia: Qualifiers: Laterality: bilateral Lung location: unspecified part of lung Pneumonia type: due to unspecified organism Qualified Code(s): J18.9 - Pneumonia, unspecified organism Code(s): J18.9 - Pneumonia, unspecified organism Status: Acute Assessment and Plan: - imaging concerning for multifocal pneumonia, see impressions above - risk factors and complicating factors: acute CHF suspected, acute hypoxic respiratory failure - started on CAP tx: Ceftriaxone and azithromycin IV - check MRSA PCR and sputum culture - Viral PCR negative on 02/06 - supportive care: Mucinex yomaira, Tessalon Perles p.r.n., DuoNebs p.r.n., Tylenol p.r.n. - currently on BiPAP due to hypercapnia, who continue supplemental O2 to maintain O2 sat greater than 92% (4) Congestive heart failure: Qualifiers: Heart failure chronicity: acute Heart failure type: unspecified Qualified Code(s): I50.9 - Heart failure, unspecified Code(s): I50.9 - Heart failure, unspecified Status: Suspected Assessment and Plan: - suspected acute CHF, obtain echo to differentiate between systolic, diastolic, or combined. No previous echo available. - see CXR and CT impressions above, concern for volume overload. No peripheral edema to bilateral thighs. - BNP 46145 - started on Lasix 40 mg IV b.i.d. - monitor I&Os and daily weights - trend renal function (5) Pleural effusion: Code(s): J90 - Pleural effusion, not elsewhere classified Status: Acute Assessment and Plan: - moderate-sized bilateral pleural effusions noted on CTA, suspected CHF, see above - currently requiring supplemental O2, wean as tolerated, maintain O2 sat greater than 92% (6) GERONIMO (acute kidney injury): Code(s): N17.9 - Acute kidney failure, unspecified Status: Acute Assessment and Plan: - creatinine 1.52, BUN 34, GFR 46 upon admission on 02/06 - baseline creatinine 0.7-0.9 from 2019 to 2022, no recent lab work available for comparison - CTA showed concentric thickening of the cintron of the moderately distended bladder, differential including incomplete bladder wall distension, cystitis, or sequela from bladder outlet obstruction. UA concerning for UTI. Concern for CHF/volume overload as evidenced by a pleural effusions, moderate size pericardial effusion, and moderate nonspecific anasarca on CT. Starting diuresis. - check CK, urine sodium, protein/creatinine, urea - bladder scan p.r.n. - monitor I&Os - consider nephrology consultation if no improvement with diuresis (7) UTI (urinary tract infection): Qualifiers: Hematuria presence: with hematuria Urinary tract infection type: acute cystitis Qualified Code(s): N30.01 - Acute cystitis with hematuria Code(s): N39.0 - Urinary tract infection, site not specified Status: Acute Assessment and Plan: - UA: Cloudy, 4+ protein, trace glucose, trace ketones, 2+ blood, 1+ leuk history is, 11-28 RBC, 51-100 WBC, occasional epithelial cells, no bacteria - UC pending, obtained on 02/06 - previous micro reviewed, grew Klebsiella in 2020 that was resistant to ampicillin only - started on Ceftriaxone on 02/06 (8) Diabetes: Qualifiers: Diabetes mellitus complication status: without complication 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 If elevated will need health educator consultation. (9) Paroxysmal atrial fibrillation: Code(s): I48.0 - Paroxysmal atrial fibrillation Status: Chronic Assessment and Plan: - history of paroxysmal AFib, currently stable. - initial EKG showed sinus tachycardia - telemetry monitoring (10) HTN (hypertension): Qualifiers: Hypertension type: primary hypertension Qualified Code(s): I10 - Essential (primary) hypertension Code(s): I10 - Essential (primary) hypertension Status: Chronic Assessment and Plan: - chronic, most recent BP 175/91. Currently not at goal. - hydralazine p.r.n. for BP greater than 180/90 - reports he is not on any home medications, start amlodipine 10 mg daily and monitor response. - monitor Plan Diet: Diabetic GI Prophylaxis: N/a DVT Prophylaxis: Lovenox SQ IV fluids: 1L bolus, no further fluids due to concern for CHF Lines/Tubes: Peripheral IV Code Status: DNR/DNI Quality VTE Prophylaxis VTE prophylaxis: pharmacologic ordered Hospitalist [facility] Advance Care Plan I have confirmed that the patient's Advanced Care Plan is present, code status is documented, or surrogate decision maker is listed in patient medical record.: Yes Medication Reconciliation I have utilized all available resources to obtain, update and review the patients current medications (includes all prescriptions, OTC, herbals, cannabis, and nutritional supplements).: Yes
--- NOTE | 2025-02-06 18:43 | PC.NURSE ---
Patient arrived on to room. Telemetry applied. Oxygen applied. Admission completed.
[2025-02-06 18:53] LABS: Creatine Kinase 70 U/L (55-170); Hemoglobin A1C 9.0 % (<5.7)
[2025-02-06 19:23] LABS: Procalcitonin 0.1 ng/mL
[2025-02-06] MEDS: guaiFENesin 12 HR 600 MG TABCR PO (21:32)
[2025-02-07] VITALS (21 sets, daily range): BP systolic 122–170; BP diastolic 69–97; PULSE 88–102; RESP 17–20; TEMP 36.6–37; O2SAT 89–97
--- NOTE | 2025-02-07 | ECHO_ITS ---
Patient Info Name: Humberto Helms Age: 69 years : 1955 Gender: Male Ht: 73 in Wt: 177 lbs BSA: 2.03 m2 HR: 95 bpm BP: 159 / 84 mmHg Heart Rhythm: Sinus Rhythm Technical Quality: Fair Exam Date: 02/07/2025 1:29 PM Patient Status: I Admit Date: 02/07/2025 Exam Type: CA echo doppler color flow Complete two-dimensional, color flow and Doppler transthoracic echocardiogram is performed. Staff Referring Physician: Tricia Whitley Panel Saw Operator: Gutierrez Pool III Attending Provider: Riley Pearl Summary 1. Complete two-dimensional, color flow and Doppler transthoracic echocardiogram is performed. 2. Concentric left ventricular hypertrophy with mild systolic dysfunction, inferior/posterior hypokinesia. 3. Grade 2 diastolic noncompliance. 4. Mild mitral regurgitation. 5. Mildly enlarged ascending aorta, 4.2 cm. 6. Trivial posterior pericardial effusion. Left Ventricle Left ventricular chamber dimension is normal. Left ventricular systolic function is mildly reduced, estimated at 45-50. There is moderate concentric increased left ventricular wall thickness. The left ventricular diastolic function is grade II diastolic dysfunction. Right Ventricle Right ventricular chamber dimension is normal. Left Atria Left atrial chamber dimension is normal. Right Atria Right atrial chamber dimension is normal. Aortic Valve The aortic valve is trileaflet. There is mild aortic valve sclerosis. Pulmonic Valve The pulmonic valve is not well visualized. Mitral Valve The mitral valve has normal leaflets. There is trace mitral valve regurgitation. Tricuspid Valve The tricuspid valve leaflets are normal. Pericardium/Pleural There is trivial pericardial effusion. Aorta The aortic root size at the sinus of Valsalva is mildly dilated. The prox ascending aorta size is mildly dilated. Left Ventricular Outflow Tract Name Value Normal LVOT 2D LVOT Diameter 2.2 cm LVOT Doppler LVOT Peak Velocity 104 cm/s LVOT Peak Gradient 4 mmHg LVOT Mean Gradient 2 mmHg LVOT VTI 18 cm LVOT VTI/AV VTI Ratio 0.8 LVOT Stroke Volume 69 ml LVOT CO 16.8 l/min LVOT CI 8.3 l/min/m2 Pulmonic Valve Name Value Normal PV Doppler PV Peak Velocity 93 cm/s PV Peak Gradient 3 mmHg PV Mean Gradient 2 mmHg Mitral Valve Name Value Normal MV Doppler MV Peak Gradient 6 mmHg MV Mean Gradient 3 mmHg MV Area (Cont Eq VTI) 3.4 cm2 MV Regurgitation Doppler MR Peak Gradient 68 mmHg MV Diastolic Function MV E Peak Velocity 139 cm/s MV A Peak Velocity 108 cm/s MV E/A 1.3 MV Decel Time (PW) 140 ms MV Annular TDI MV E/e' (Septal) 22.8 MV E/e' (Lateral) 14.6 MV E/e' (Average) 18.7 Tricuspid Valve Name Value Normal TV Annular TDI TV Lateral Ileana s' Velocity 16.0 cm/s >=9.5 Aortic Valve Name Value Normal AV Doppler AV Peak Velocity 139 cm/s AV Peak Gradient 8 mmHg AV Mean Gradient 4 mmHg AV VTI 24 cm AV Area (Cont Eq VTI) 2.9 cm2 >=3.0 AV Area (Cont Eq Sudeep) 2.8 cm2 AV DI (Sudeep) 0.75 AV Regurgitation 2D LVOT Area 3.8 cm2 Ventricles Name Value Normal LV Dimensions 2D/MM IVS Diastolic Thickness (2D) 1.3 cm 0.6-1.0 LVID Diastole (2D) 4.7 cm 4.2-5.8 LVIW Diastolic Thickness (2D) 1.1 cm 0.6-1.0 LVID Systole (2D) 4.0 cm 2.5-4.0 LVOT Diameter 2.2 cm LV Mass (2D Cubed) 202.48 g 88.00-224.00 LV Mass Index (2D Cubed) 100 g/m2 49-115 Relative Wall Thickness (2D) 0.45 <=0.42 LV Fractional Shortening/Ejection Fraction 2D/MM LV Fractional Shortening (2D) 15 % 25-43 LV EF (2D Teichholz) 31 % LV Diastolic Volume (4C MOD) 93 ml LV EF (4C MOD) 42 % LV Diastolic Volume (2C MOD) 105 ml LV EF (2C MOD) 48 % LV Diastolic Volume (BP MOD) 102 ml 62-150 LV Diastolic Volume Index (BP MOD) 50 ml/m2 34-74 LV Systolic Volume (BP MOD) 62 ml 21-61 LV Systolic Volume Index (BP MOD) 30 ml/m2 11-31 LV EF (BP MOD) 39 % 52-72 LV Diastolic Length (4C) 7.4 cm LV Systolic Length (4C) 6.6 cm LV Stroke Volume (4C MOD) 39 ml Atria Name Value Normal LA Dimensions LA Volume (4C A-L) 67 ml LA Volume (BP A-L) 66 ml RA Dimensions RA Systolic Major [place] Length (4C) 5.4 cm 2.1-2.7 RA Area (4C) 17.7 cm2 <=18.0 Report Signatures
[2025-02-07 04:25] LABS: Hematocrit 40.8 % (42.0-52.0); Hemoglobin 11.9 g/dL (14.0-18.0); Immature Granulocyte Percent A 1.4 % (0-0.5); Lymphocytes Absolute Auto 0.27 K/mm3 (0.9-3.2); Mean Corpuscular HGB Conc 29.2 g/dl (32-36); Mean Corpuscular Hemoglobin 26.6 pg (26-34); Mean Corpuscular Volume 91.3 fl (80-100); Nucleated Red Blood Cells Absolute Auto 0.000 K/mm3 (0.0-0.012); Nucleated Red Blood Cells Perc 0.0 % (0.0-0.2); Platelet Count Result 137 k/mm3 (150-375); Red Blood Count 4.47 M/mm3 (4.6-6.20); White Blood Count 6.2 K/mm3 (4.5-10.0)
[2025-02-07 04:49] LABS: Alanine Aminotransferase 23 U/L (6-50); Albumin Level 3.4 g/dL (3.5-5.1); Alkaline Phosphatase 158 U/L (38-126); Anion Gap 8 mmol/L (4-12); Aspartate Amino Transferase 29 U/L (17-59); Bilirubin,Total 0.5 mg/dL (0.2-1.3); Blood Urea Nitrogen 37 mg/dL (9-20); Calcium 8.3 mg/dL (8.4-10.2); Carbon Dioxide 28 mmol/L (22-30); Chloride 104 mmol/L (98-107); Estimated CRCL calculation 45 ml/min; Estimated Glomerular Filt Rate 43; Glucose 188 mg/dL (65-110); Potassium 4.6 mmol/L (3.4-5.0); Sodium 140 mmol/L (137-145); Total Protein 7.2 g/dL (6.3-8.2)
[2025-02-07 04:54] LABS: Burr Cells 2+; Macrocytosis 1+ (NORMAL)
[2025-02-07 04:55] LABS: Schistocytes None Seen
[2025-02-07] MEDS: IPRATROPIUM 0.5 MG/ALBUTEROL SULFATE 2.5 MG AMPUL.NEB 3 ML INHALATION ×2 (07:13→19:52)
--- NOTE | 2025-02-07 07:57 | PM.IMPN ---
Progress Note: A&P Assessment and Plan (1) Sepsis: Qualifiers: Sepsis acute organ dysfunction status: without acute organ dysfunction Sepsis type: sepsis due to unspecified organism Qualified Code(s): A41.9 - Sepsis, unspecified organism Code(s): A41.9 - Sepsis, unspecified organism Status: Acute Assessment and Plan: - meets SIRS criteria: HR >90, RR >20. +Hypoxia, -HypoTN. Blood cultures obtained on 02/06, follow. - CXR, 02/06: CHF. Superimposed probable pneumonia - CTA chest/abdomen/pelvis, 02/06: 1. No pulmonary embolism identified. 2. Moderate-sized bilateral pleural effusions. 3. Moderate-sized consolidations in the lower lobes and right middle lobe. Recommend follow-up to resolution. 4. Small to moderate size ground glass opacity scattered throughout both lungs most prominent in the upper lobes. Recommend follow-up to resolution. 5. Moderate-sized pericardial effusion. 6. Cholelithiasis. 7. Small amount of fluid and fat stranding scattered throughout the abdomen and pelvis for prominent in the right abdomen. 8. Concentric thickening of the cintron of the moderately distended bladder. Differential includes incomplete bladder wall distention, cystitis or sequelae from bladder outlet obstruction. 9. Moderate nonspecific anasarca. 10. Small bilateral fat-containing inguinal hernias, larger on the right which also contains fluid - check lactic and procalcitonin >> 0.9 and procal 0.1 - given 1L bolus, hold on further fluids due to concern for significant volume overload on imaging, see CHF. - suspected source -> pneumonia and possible UTI, started on broad spectrum abx - monitor hemodynamic stability and O2 saturation (2) Acute on chronic respiratory failure with hypoxia and hypercapnia: Code(s): J96.21 - Acute and chronic respiratory failure with hypoxia; J96.22 - Acute and chronic respiratory failure with hypercapnia Status: Acute Assessment and Plan: - ABG, initial: PH 7.305, CO2 64, HC03 31.1, O2 saturation 92.7% on 3L - imaging concerning for significant volume overload as evidenced by moderate pleural effusions, moderate nonspecific anasarca, moderate sized pericardial effusion - imaging additionally concern for multifocal pneumonia - CTA negative for PE Acute respiratory failure air likely multifactorial including suspected CHF, multifocal pneumonia. Patient is an everyday smoker (1PPD), could have COPD component -> adding prednisone 40 mg PO x5 days. Started on nebulizers p.r.n., add diuretics, broad-spectrum antibiotics, and BiPAP. Patient hesitant to start BiPAP, was agreeable to trying for 1 hour, now off and reporting no improvement. DNR/DNI. (3) Pneumonia: Qualifiers: Laterality: bilateral Lung location: unspecified part of lung Pneumonia type: due to unspecified organism Qualified Code(s): J18.9 - Pneumonia, unspecified organism Code(s): J18.9 - Pneumonia, unspecified organism Status: Acute Assessment and Plan: Was initially on BiPAP due to hypercapnia, who continue supplemental O2 to maintain O2 sat greater than 92% - imaging concerning for multifocal pneumonia, see impressions above - risk factors and complicating factors: acute CHF suspected, acute hypoxic respiratory failure - started on CAP tx: Ceftriaxone and azithromycin IV - check MRSA PCR and sputum culture - Viral PCR negative on 02/06 - supportive care: Mucinex yomaira, Tessalon Perles p.r.n., DuoNebs p.r.n., Tylenol p.r.n. -VBG in AM --Check HIV (4) Congestive heart failure: Qualifiers: Heart failure chronicity: acute Heart failure type: unspecified Qualified Code(s): I50.9 - Heart failure, unspecified Code(s): I50.9 - Heart failure, unspecified Status: Suspected Assessment and Plan: - suspected acute CHF, obtain echo to differentiate between systolic, diastolic, or combined. No previous echo available. - see CXR and CT impressions above, concern for volume overload. No peripheral edema to bilateral thighs. - BNP [id number] - started on Lasix 40 mg IV b.i.d, weaning - monitor I&Os and daily weights - trend renal function (5) Pleural effusion: Code(s): J90 - Pleural effusion, not elsewhere classified Status: Acute Assessment and Plan: - moderate-sized bilateral pleural effusions noted on CTA, suspected CHF, see above - currently requiring supplemental O2, wean as tolerated, maintain O2 sat greater than 92% --Thoracentesis in AM (6) GERONIMO (acute kidney injury): Code(s): N17.9 - Acute kidney failure, unspecified Status: Acute Assessment and Plan: creatinine 1.52, BUN 34, GFR 46 upon admission on 02/06 - baseline creatinine 0.7-0.9 from 2019 to 2022, no recent lab work available for comparison - CTA showed concentric thickening of the cintron of the moderately distended bladder, differential including incomplete bladder wall distension, cystitis, or sequela from bladder outlet obstruction. UA concerning for UTI. Concern for CHF/volume overload as evidenced by a pleural effusions, moderate size pericardial effusion, and moderate nonspecific anasarca on CT. Starting diuresis. - check CK, urine sodium, protein/creatinine, urea - bladder scan p.r.n. - monitor I&Os - consider nephrology consultation if no improvement with diuresis (7) UTI (urinary tract infection): Qualifiers: Hematuria presence: with hematuria Urinary tract infection type: acute cystitis Qualified Code(s): N30.01 - Acute cystitis with hematuria Code(s): N39.0 - Urinary tract infection, site not specified Status: Acute Assessment and Plan: UA: Cloudy, 4+ protein, trace glucose, trace ketones, 2+ blood, 1+ leuk history is, 11-28 RBC, 51-100 WBC, occasional epithelial cells, no bacteria - UC pending, obtained on 02/06 - previous micro reviewed, grew Klebsiella in 2020 that was resistant to ampicillin only - started on Ceftriaxone on 02/06 (8) Diabetes: Qualifiers: Diabetes mellitus complication status: without complication Diabetes mellitus continuous churn buttermaker insulin use: with continuous churn buttermaker use Diabetes mellitus type: type 2 Qualified Code(s): E11.9 - Type 2 diabetes mellitus without complications; Z79.4 - continuous churn buttermaker (current) use of insulin Code(s): E11.9 - Type 2 diabetes mellitus without complications Status: Chronic Assessment and Plan: - previously complicated by diabetic foot wounds, s/p bilateral BKA - hypoglycemia protocol - POC blood glucose ACHS - reports he is not on any home medications - correct regimen ordered - low dose TIDWM - A1C 12.6% in 2022, update. If elevated will need community nutrition educator consultation. (9) Paroxysmal atrial fibrillation: Code(s): I48.0 - Paroxysmal atrial fibrillation Status: Chronic Assessment and Plan: - history of paroxysmal AFib, currently stable. - initial EKG showed sinus tachycardia, NSR - telemetry monitoring (10) HTN (hypertension): Qualifiers: Hypertension type: primary hypertension Qualified Code(s): I10 - Essential (primary) hypertension Code(s): I10 - Essential (primary) hypertension Status: Chronic Assessment and Plan: SBP 170/94 in the ER in the setting of respiratory distress - hydralazine p.r.n. for BP greater than 200 - reports he is not on any home medications, started amlodipine 10 mg daily, blood pressure 120's. Reduce to 2.5mg daily - monitor Plan Diet: Diabetic GI Prophylaxis: N/a DVT Prophylaxis: Lovenox SQ IV fluids: 1L bolus, no further fluids due to concern for CHF Lines/Tubes: Peripheral IV Code Status: DNR/DNI Time Spent With Patient Time: 58 minutes Subjective Date/time seen: 02/07/25 07:57 Interval history: Weaning oxygen during the day 4L>3L. Feels shortness of breath about the same. Has bilateral pleural effusions on CT and I discussed a thoracentesis with him. He reports gradual shortness of breath over the last couple of weeks moving around the house. No fevers or chills. Occasional nonproductive cough. He was previously homeless but currently living with family. He says family shops and he microwaves food at home. Reports weight loss, 80.1kg. But no recent weights. Last in 2022 was stable. Reason for hospitalization 69 y/o M with PMH of pAfib, prostate cancer s/p radiation, TB (2104), polysubstance abuse, hepatitis C, HTN, DM presents here with generalized weakness and shortness of breath. 02/06 CT CAP showed bilateral pleural effusions, moderate pericardial effusion and moderate consolidations to the RML &LLL. Treating a CHF exacerbation, Pneumonia and GERONIMO Review of Systems Review of Systems: All systems reviewed & are unremarkable except as noted in HPI and below Exam Narrative: General - Awake and alert. No acute distress Eyes - PERRLA, EOM intact ENT - No thrush, No erythema Neck - No noticeable or palpable swelling Lymph Nodes - No lymphadenopathy Cardiovascular - RRR no m/r/g, no JVD Lungs: Decreased breath sounds bilateral lower lobes. No wheezing, use of accessory muscles, no crackles Skin - Skin warm and dry, no wounds or rashes Abdomen - Normal bowel sounds, abdomen soft and nontender Extremities - No edema, cyanosis or clubbing Musculoskeletal - 5/5 strength, normal range of motion. Bilater BKA Neurological ? Alert and oriented x 3, CN 2-12 grossly intact. Psych: Normal mood and affect Objective Data Vital Signs Vital Signs: Vital Signs - 24 hr 02/06/25 10:15 02/06/25 10:25 02/06/25 12:55 Temperature 97.8 F Pulse Rate 103 H 97 Respiratory Rate 19 20 Blood Pressure 170/94 H 171/92 H Pulse Oximetry 96 96 92 Oxygen Delivery Nasal Cannula Nasal Cannula Oxygen Flow Rate 3 3 02/06/25 14:02 02/06/25 14:15 02/06/25 14:48 Temperature Pulse Rate 100 89 Respiratory Rate 24 H 17 Blood Pressure 175/91 H Pulse Oximetry 92 98 96 Oxygen Delivery BiPAP BiPAP Oxygen Flow Rate 02/06/25 15:21 02/06/25 20:00 02/06/25 20:00 Temperature Pulse Rate 98 94 Respiratory Rate 20 Blood Pressure 170/92 H Pulse Oximetry 94 96 Oxygen Delivery Nasal Cannula Oxygen Flow Rate 3 02/06/25 20:51 02/06/25 22:00 02/06/25 23:55 Temperature Pulse Rate 88 Respiratory Rate Blood Pressure Pulse Oximetry 93 96 Oxygen Delivery Nasal Cannula Nasal Cannula Oxygen Flow Rate 3 3 02/07/25 00:00 02/07/25 00:00 02/07/25 02:00 Temperature 98.6 F Pulse Rate 96 97 98 Respiratory Rate 20 Blood Pressure 164/88 H Pulse Oximetry 97 Oxygen Delivery Oxygen Flow Rate 02/07/25 03:31 02/07/25 04:00 02/07/25 04:00 Temperature 98.2 F Pulse Rate 95 90 Respiratory Rate 20 Blood Pressure 159/84 H Pulse Oximetry 93 93 Oxygen Delivery Nasal Cannula Oxygen Flow Rate 4 02/07/25 06:00 02/07/25 07:14 02/07/25 07:16 Temperature Pulse Rate 88 99 99 Respiratory Rate 18 18 Blood Pressure Pulse Oximetry 90 Oxygen Delivery Nasal Cannula Oxygen Flow Rate 4 02/07/25 07:19 Temperature Pulse Rate 100 Respiratory Rate 18 Blood Pressure Pulse Oximetry Oxygen Delivery Oxygen Flow Rate Intake/Output Intake/Output: Intake & Output 02/04/25 02/05/25 02/06/25 02/07/25 23:59 23:59 23:59 23:59 Intake Total 1300 Output Total 100 400 Balance 1200 -400 Meds/Results Medications: Active Medications Generic Name Dose Route Start Last Admin Trade Name Delfino PRN Reason Stop Dose Admin Acetaminophen 650 mg 02/06/25 15:03 Acetaminophen 325 Mg Tablet PO Q4H PRN Mild Pain (1-3) or Fever Albuterol/Ipratropium 3 ml 02/06/25 20:00 02/07/25 07:13 Ipratropium 0.5 Mg/Albuterol Sulfate 2.5 Mg Ampul.Neb 3 Ml INHALATION 3 ml Q6HRT YOMAIRA Administration Amlodipine Besylate 10 mg 02/07/25 09:00 Amlodipine Besylate 10 Mg Tablet PO DAILY YOMAIRA Benzonatate 100 mg 02/06/25 16:24 Benzonatate 100 Mg Capsule PO TID PRN Cough Dextrose 12.5 gm 02/06/25 15:03 Dextrose 50% 25 Gm/50 Ml Syringe IV PUSH PRN PRN Hypoglycemia Protocol Enoxaparin Sodium 40 mg 02/07/25 09:00 Enoxaparin 40 Mg/0.4 Ml Syringe SUB-Q DAILY YOMAIRA Furosemide 40 mg 02/06/25 21:00 02/06/25 21:39 Furosemide Inj 40 Mg/4 Ml Vial IV PUSH 40 mg Q12HR YOMAIRA Administration Glucagon 1 mg 02/06/25 15:03 Glucagon For Inj 1 Mg Vial IM PRN PRN Hypoglycemia Protocol Glucose 15 gm 02/06/25 15:03 Glucose Oral Gel 15 Gm Of Glucse In 37.5 Gm Tube PO PRN PRN Hypoglycemia Protocol Guaifenesin 600 mg 02/06/25 21:00 02/06/25 21:32 Guaifenesin 12 Hr 600 Mg Tabcr PO 600 mg Q12HR YOMAIRA Administration Hydralazine HCl 10 mg 02/06/25 20:41 Hydralazine Hcl 20 Mg/Ml Vial IV PUSH Q8H PRN Blood Pressure - High, >180/90 Ceftriaxone Sodium 1 gm/ 50 mls @ 100 mls/hr 02/07/25 13:00 Sodium Chloride IVPB Q24H YOMAIRA Azithromycin 500 mg/ Sodium 250 mls @ 250 mls/hr 02/07/25 13:00 Chloride IVPB 02/10/25 13:59 Q24H YOMAIRA Dextrose 1,000 mls @ 100 mls/hr 02/06/25 15:03 Dextrose 5% 1,000 Ml IVPB PRN PRN Hypoglycemia Protocol Insulin Aspart 2 - 5 units 02/06/25 17:00 02/06/25 18:45 Insulin Aspart (*Bkc) 100 Units/Ml SUB-Q Not Given TIDWM [facility] Protocol Ondansetron HCl 4 mg 02/06/25 15:03 Ondansetron Inj 4 Mg/2 Ml Vial IV PUSH Q4H PRN Nausea Perflutren Lipid Microsphere 0 ml 02/06/25 16:24 Perflutren Lipid Microspheres 1.5 Ml Vial Diluted To 10 Ml Total Volume IV PUSH 02/09/25 16:25 ONCE PRN adequate visualization Protocol Prednisone 40 mg 02/06/25 20:40 02/06/25 21:31 Prednisone 20 Mg Tablet PO 02/11/25 20:39 40 mg DAILY@0800 [facility] Administration Radiology Results: ITS Impressions Head CT 02/06/25 12:24 IMPRESSION: 1. No acute intracranial findings. Chest X-Ray 02/06/25 12:41 Impression: CHF. Superimposed probable pneumonia Chest/Abdomen/Pelvis CTA 02/06/25 13:40 IMPRESSION: 1. No pulmonary embolism identified. 2. Moderate-sized bilateral pleural effusions. 3. Moderate-sized consolidations in the lower lobes and right middle lobe. Recommend follow-up to resolution. 4. Small to moderate size ground glass opacity scattered throughout both lungs most prominent in the upper lobes. Recommend follow-up to resolution. 5. Moderate-sized pericardial effusion. 6. Cholelithiasis. 7. Small amount of fluid and fat stranding scattered throughout the abdomen and pelvis for prominent in the right abdomen. 8. Concentric thickening of the cintron of the moderately distended bladder. Differential includes incomplete bladder wall distention, cystitis or sequelae from bladder outlet obstruction. 9. Moderate nonspecific anasarca. 10. Small bilateral fat-containing inguinal hernias, larger on the right which also contains fluid Labs Labs: Laboratory Results - last 24 hr 02/06/25 02/06/25 02/06/25 10:23 10:34 11:00 WBC 5.6 RBC 4.76 Hgb 12.8 L D Hct 42.0 MCV 88.2 MCH 26.9 MCHC 30.5 L RDW 14.9 H Plt Count 150 D MPV 11.7 H Immature Gran % (Auto) 0.5 Neut % (Auto) 79.7 H Lymph % (Auto) 13.1 L [place] % (Auto) 5.7 Eos % (Auto) 0.5 Baso % (Auto) 0.5 Lymph # (Auto) 0.74 L [place] # (Auto) 0.3 Eos # (Auto) 0.0 Baso # (Auto) 0.0 Abs Immat Gran (auto) 0.03 Absolute Neuts (auto) 4.5 Absolute Nucleated RBC 0.000 Band Neutrophils % Nucleated RBC % 0.0 Platelet Estimate Macrocytosis Elia Cells Schistocytes PT 14.5 INR 1.1 APTT 28.3 D-Dimer 0.96 H Puncture Site ABG pH ABG pCO2 ABG pO2 ABG PO2/FiO2 Ratio ABG HCO3 ABG O2 Saturation ABG O2 Content ABG Base Excess A-a Gradient Oxyhemoglobin Carboxyhemoglobin Methemoglobin Reduced Hemoglobin Total Hemoglobin O2 Delivery Device O2 Liters/Min FiO2 Sodium 142 Potassium 4.4 Chloride 106 Carbon Dioxide 30 Anion Gap 6 BUN 34 H D Creatinine 1.52 H Estim Creat Clear Calc Not Reportable Estimated GFR 46 L Glucose 172 H POC Capillary Glucose 165 H Hemoglobin A1c Lactic Acid Calcium 8.8 Total Bilirubin 0.5 AST 32 ALT 26 Alkaline Phosphatase 159 H Total Creatine Kinase Troponin I < 0.012 NT-Pro-B Natriuret Pep 34619 H Total Protein 7.9 Albumin 3.7 Procalcitonin Urine Color Urine Appearance Urine pH Ur Specific [place] Urine Protein Urine Glucose (UA) Urine Ketones Ur Blood (Man) Urine Nitrate Urine Bilirubin Urine Urobilinogen Add Ur Microanalysis Leukocyte Esterase Rfl Urine RBC Urine WBC Ur Squamous Epith Cells Urine Bacteria Urine Casts Granular Casts Influenza A (RT-PCR) Negative Influenza B (RT-PCR) Negative RSV (RT-PCR) Negative SARS-CoV-2 RNA (RT-PCR) Negative 02/06/25 02/06/25 02/06/25 11:39 11:59 18:38 WBC RBC Hgb Hct MCV MCH MCHC RDW Plt Count MPV Immature Gran % (Auto) Neut % (Auto) Lymph % (Auto) [place] % (Auto) Eos % (Auto) Baso % (Auto) Lymph # (Auto) [place] # (Auto) Eos # (Auto) Baso # (Auto) Abs Immat Gran (auto) Absolute Neuts (auto) Absolute Nucleated RBC Band Neutrophils % Nucleated RBC % Platelet Estimate Macrocytosis [place] Cells Schistocytes PT INR APTT D-Dimer Puncture Site Left radial ABG pH 7.305 L ABG pCO2 64.0 H* ABG pO2 72.6 L ABG PO2/FiO2 Ratio 2.42 ABG HCO3 31.1 H ABG O2 Saturation 92.7 L ABG O2 Content 15.9 L ABG Base Excess 3.2 A-a Gradient 66.1 Oxyhemoglobin 90.1 Carboxyhemoglobin 3.0 H Methemoglobin 0.2 Reduced Hemoglobin 6.7 H Total Hemoglobin 12.5 O2 Delivery Device Nasal cannula O2 Liters/Min 3.0 FiO2 30 Sodium Potassium Chloride Carbon Dioxide Anion Gap BUN Creatinine Estim Creat Clear Calc Estimated GFR Glucose POC Capillary Glucose Hemoglobin A1c 9.0 H Lactic Acid 0.9 Calcium Total Bilirubin AST ALT Alkaline Phosphatase Total Creatine Kinase 70 Troponin I NT-Pro-B Natriuret Pep Total Protein Albumin Procalcitonin 0.1 Urine Color Dark yellow Urine Appearance Cloudy H Urine pH 5.0 Ur Specific [place] 1.023 Urine Protein 4+ H Urine Glucose (UA) Trace H Urine Ketones Trace H Ur Blood (Man) 2+ H Urine Nitrate Negative Urine Bilirubin Negative Urine Urobilinogen 1.0 Add Ur Microanalysis Reviewed Leukocyte Esterase Rfl 1+ H Urine RBC 11-20 H Urine WBC 51-100 H Ur Squamous Epith Cells Occasional Urine Bacteria None seen Urine Casts >20 Granular Casts 3-4 H Influenza A (RT-PCR) Influenza B (RT-PCR) RSV (RT-PCR) SARS-CoV-2 RNA (RT-PCR) 02/06/25 02/07/25 02/07/25 19:51 03:34 07:28 WBC 6.2 RBC 4.47 L Hgb 11.9 L Hct 40.8 L MCV 91.3 MCH 26.6 MCHC 29.2 L RDW 14.8 H Plt Count 137 L MPV 12.4 H Immature Gran % (Auto) 1.4 H Neut % (Auto) 92.8 H Lymph % (Auto) 4.3 L [place] % (Auto) 1.0 L Eos % (Auto) 0.0 Baso % (Auto) 0.5 Lymph # (Auto) 0.27 L [place] # (Auto) 0.1 Eos # (Auto) 0.0 Baso # (Auto) 0.0 Abs Immat Gran (auto) 0.09 H Absolute Neuts (auto) 5.8 Absolute Nucleated RBC 0.000 Band Neutrophils % Not Reportable Nucleated RBC % 0.0 Platelet Estimate Decreased Macrocytosis 1+ [place] Cells 2+ Schistocytes None seen PT INR APTT D-Dimer Puncture Site ABG pH ABG pCO2 ABG pO2 ABG PO2/FiO2 Ratio ABG HCO3 ABG O2 Saturation ABG O2 Content ABG Base Excess A-a Gradient Oxyhemoglobin Carboxyhemoglobin Methemoglobin Reduced Hemoglobin Total Hemoglobin O2 Delivery Device O2 Liters/Min FiO2 Sodium 140 Potassium 4.6 Chloride 104 Carbon Dioxide 28 Anion Gap 8 BUN 37 H Creatinine 1.61 H Estim Creat Clear Calc 45 Estimated GFR 43 L Glucose 188 H POC Capillary Glucose 103 190 H Hemoglobin A1c Lactic Acid Calcium 8.3 L Total Bilirubin 0.5 AST 29 ALT 23 Alkaline Phosphatase 158 H Total Creatine Kinase Troponin I NT-Pro-B Natriuret Pep Total Protein 7.2 Albumin 3.4 L Procalcitonin Urine Color Urine Appearance Urine pH Ur Specific [place] Urine Protein Urine Glucose (UA) Urine Ketones Ur Blood (Man) Urine Nitrate Urine Bilirubin Urine Urobilinogen Add Ur Microanalysis Leukocyte Esterase Rfl Urine RBC Urine WBC Ur Squamous Epith Cells Urine Bacteria Urine Casts Granular Casts Influenza A (RT-PCR) Influenza B (RT-PCR) RSV (RT-PCR) SARS-CoV-2 RNA (RT-PCR) Quality VTE Prophylaxis VTE prophylaxis: pharmacologic ordered Hospitalist MIPS Advance Care Plan I have confirmed that the patient's Advanced Care Plan is present, code status is documented, or surrogate decision maker is listed in patient medical record.: Yes Medication Reconciliation I have utilized all available resources to obtain, update and review the patients current medications (includes all prescriptions, OTC, herbals, cannabis, and nutritional supplements).: Yes
[2025-02-07] MEDS: ENOXAPARIN 40 MG/0.4 ML SYRINGE SUB-Q (08:47)
[2025-02-07] MEDS: FUROSEMIDE INJ 40 MG/4 ML VIAL IV PUSH ×2 (08:47→21:56)
[2025-02-07] MEDS: guaiFENesin 12 HR 600 MG TABCR PO ×2 (08:48→21:56)
[2025-02-07] MEDS: INSULIN ASPART (*BKC) 100 UNITS/ML SUB-Q ×2 (12:53→17:33)
[2025-02-07] MEDS: cefTRIAXone 1 GM in SODIUM CHLORIDE 0.9% IV 50 ML 100 ML IVPB (12:54)
[2025-02-07] MEDS: AZITHROMYCIN IV 500 MG in SODIUM CHLORIDE 0.9% IV 250 ML IVPB (12:54)
[2025-02-08] VITALS (16 sets, daily range): BP systolic 137–160; BP diastolic 78–92; PULSE 90–95; RESP 17–24; TEMP 36.3–36.8; O2SAT 90–98
[2025-02-08 02:32] LABS: HIV 1/2 Ab P24 Ag Result Negative (Negative)
[2025-02-08] MEDS: IPRATROPIUM 0.5 MG/ALBUTEROL SULFATE 2.5 MG AMPUL.NEB 3 ML INHALATION ×2 (07:30→15:09)
--- NOTE | 2025-02-08 07:31 | P.PNIM_ITS ---
Progress Note: A&P Assessment and Plan (1) Sepsis: Qualifiers: Sepsis acute organ dysfunction status: without acute organ dysfunction Sepsis type: sepsis due to unspecified organism Qualified Code(s): A41.9 - S epsis, unspecified organism Code(s): A41.9 - Sepsis, unspecified organism Status: Acute Assessment and Plan: - meets SIRS criteria: HR >90, RR >20. +Hypoxia, -HypoTN. Blood cultures obtained on 02/06, follow. - CXR, 02/06: CHF. Superimposed probable pneumonia - CTA chest/abdomen/pelvis, 02/06: 1. No pulmonary embolism identified. 2. Moderate-sized bilateral pleural effusions. 3. Moderate-sized consolidations in the lower lobes and right middle lobe. Recommend follow-up to resolution. 4. Small to moderate size ground glass opacity scattered throughout both lungs most prominent in the upper lobes. Recommend follow-up to resolution. 5. Moderate-sized pericardial effusion. 6. Cholelithiasis. 7. Small amount of fluid and fat stranding scattered throughout the abdomen and pelvis for prominent in the right abdomen. 8. Concentric thickening of the cintron of the moderately distended bladder. Differential includes incomplete bladder wall distention, cystitis or sequelae from bladder outlet obstruction. 9. Moderate nonspecific anasarca. 10. Small bilateral fat-containing inguinal hernias, larger on the right which also contains fluid - check lactic and procalcitonin >> 0.9 and procal 0.1 - given 1L bolus, hold on further fluids due to concern for significant volume overload on imaging, see CHF. - suspected source -> pneumonia and possible UTI, started on broad spectrum abx - monitor hemodynamic stability and O2 saturation (2) Acute on chronic respiratory failure with hypoxia and hypercapnia: Code(s): J96.21 - Acute and chronic respiratory failure with hypoxia; J96.22 - Acute and chronic respiratory failure with hypercapnia Status: Acute Assessment and Plan: - ABG, initial: PH 7.305, CO2 64, HC03 31.1, O2 saturation 92.7% on 3L - imaging concerning for significant volume overload as evidenced by moderate pleural effusions, moderate nonspecific anasarca, moderate sized pericardial effusion - imaging additionally concern for multifocal pneumonia - CTA negative for PE --Consult pulmonary --Seems slightly more confused today. Check ABG today Acute respiratory failure air likely multifactorial including suspected CHF, multifocal pneumonia. Patient is an everyday smoker (1PPD), could have COPD component -> adding prednisone 40 mg PO x5 days. Started on nebulizers p.r.n., add diuretics, broad-spectrum antibiotics, and BiPAP. Patient hesitant to start BiPAP, tried for an hour and took it off. DNR/DNI. (3) Pneumonia: Qualifiers: Laterality: bilateral Lung location: unspecified part of lung Pneumonia type: due to unspecified organism Qualified Code(s): J18.9 - Pneumonia, unspecified organism Code(s): J18.9 - Pneumonia, unspecified organism Status: Acute Assessment and Plan: Was initially on BiPAP due to hypercapnia, who continue supplemental O2 to maintain O2 sat greater than 92% - imaging concerning for multifocal pneumonia, see impressions above. HIV negative - risk factors and complicating factors: acute CHF suspected, acute hypoxic respiratory failure - started on CAP tx: Ceftriaxone and azithromycin IV. Change to Cefepime, Vanc, Flagyl since increased oxygen requirements -Consult pulmonary - check MRSA PCR --sputum culture - Viral PCR negative on 02/06 - supportive care: Mucinex yomaira, Tessalon Perles p.r.n., DuoNebs p.r.n., Tylenol p.r.n. (4) Congestive heart failure: Qualifiers: Heart failure chronicity: acute Heart failure type: unspecified Qualified Code(s): I50.9 - Heart failure, unspecified Code(s): I50.9 - Heart failure, unspecified Status: Suspected Assessment and Plan: - suspected acute CHF, obtain echo to differentiate between systolic, diastolic, or combined. No previous echo available. - see CXR and CT impressions above, concern for volume overload. No peripheral edema to bilateral thighs. - BNP 41461 - started on Lasix 40 mg IV b.i.d, weaning - monitor I&Os and daily weights - trend renal function (5) Pleural effusion: Code(s): J90 - Pleural effusion, not elsewhere classified Status: Acute Assessment and Plan: - moderate-sized bilateral pleural effusions noted on CTA, suspected CHF, see above - currently requiring supplemental O2, wean as tolerated, maintain O2 sat greater than 92% --Thoracentesis today (6) GERONIMO (acute kidney injury): Code(s): N17.9 - Acute kidney failure, unspecified Status: Acute Assessment and Plan: creatinine 1.52, BUN 34, GFR 46 upon admission on 02/06 - baseline creatinine 0.7-0.9 from 2019 to 2022, no recent lab work available for comparison - CTA showed concentric thickening of the cintron of the moderately distended bladder, differential including incomplete bladder wall distension, cystitis, or sequela from bladder outlet obstruction. UA concerning for UTI. Concern for CHF/volume overload as evidenced by a pleural effusions, moderate size pericardial effusion, and moderate nonspecific anasarca on CT. Starting diuresis. - check CK, urine sodium, protein/creatinine, urea - bladder scan once - monitor I&Os - consider nephrology consultation if no improvement with diuresis & treatment of UTI -Check Urine Sodium, creatinine -- renal US (7) UTI (urinary tract infection): Qualifiers: Hematuria presence: with hematuria Urinary tract infection type: acute cystitis Qualified Code(s): N30.01 - Acute cystitis with hematuria Code(s): N39.0 - Urinary tract infection, site not specified Status: Acute Assessment and Plan: UA: Cloudy, 4+ protein, trace glucose, trace ketones, 2+ blood, 1+ leuk history is, 11-28 RBC, 51-100 WBC, occasional epithelial cells, no bacteria - UC pending, obtained on 02/06. Growing GNB. Follow susceptibilities - previous micro reviewed, grew Klebsiella in 2020 that was resistant to ampicillin only - started on Ceftriaxone on 02/06. 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 02/06/25 9.0. Diabetes ed consult prior to discharge (9) Paroxysmal atrial fibrillation: Code(s): I48.0 - Paroxysmal atrial fibrillation Status: Chronic Assessment and Plan: - history of paroxysmal AFib, currently stable. - initial EKG showed sinus tachycardia, NSR - telemetry monitoring (10) HTN (hypertension): Qualifiers: Hypertension type: primary hypertension Qualified Code(s): I10 - Essential (primary) hypertension Code(s): I10 - Essential (primary) hypertension Status: Chronic Assessment and Plan: SBP 170/94 in the ER in the setting of respiratory distress - hydralazine p.r.n. for BP greater than 200 - reports he is not on any home medications, started amlodipine 10 mg daily, blood pressure 120's. Reduce to 2.5mg daily. BP controlled - monitor Plan Diet: Diabetic GI Prophylaxis: N/a DVT Prophylaxis: Lovenox SQ IV fluids: 1L bolus, no further fluids due to concern for CHF Lines/Tubes: Peripheral IV Code Status: DNR/DNI Time Spent With Patient Time: 65 minutes Subjective Date/time seen: 02/08/25 10:50 Interval history: Chest x-ray moderate pulmonary venous congestion, moderate bilateral infiltrates and effusions 3L<5L O2 today. NC changed to a mask since mouth breathing. Consult pulmonary Thoracentesis today. NPO, Lovenox held. Was agreeable to thoracentesis yesteray Change Ceftriaxone to Cefepime, Flagyl, Vanc. Continue azithromycin x3 doses Pulling off oxygen, mild confusion today. Check ABG Reason for hospitalization 69 y/o M with PMH of pAfib, prostate cancer s/p radiation, TB (2104), polysubstance abuse, hepatitis C, HTN, DM presents here with generalized weakness and shortness of breath. 02/06 CT CAP showed bilateral pleural effu sions, moderate pericardial effusion and moderate consolidations to the RML &LLL. Treating a CHF exacerbation, Pneumonia and GERONIMO Daughter Luma Blank [phone]. Son Ky Helms. No answer on either phone, unable to be completed and went to voicemail Review of Systems Review of Systems: All systems reviewed & are unremarkable except as noted in HPI and below Exam Narrative: General - Awake and alert. Eyes - PERRLA, EOM intact ENT - No thrush, No erythema Neck - No noticeable or palpable swelling Lymph Nodes - No lymphadenopathy Cardiovascular - RRR no m/r/g, no JVD Lungs: Decreased breath sounds bilateral lower lobes. No wheezing, use of accessory muscles, no crackles Skin - Skin warm and dry, no wounds or rashes Abdomen - Normal bowel sounds, abdomen soft and nontender Extremities - No edema, cyanosis or clubbing Musculoskeletal - 5/5 strength, normal range of motion. Bilater BKA Neurological ? Alert and oriented x 2-3 2024 Doesn't know month, CN 2-12 grossly intact. Psych: Normal mood and affect Objective Data Vital Signs Vital Signs: Vital Signs - 24 hr 02/07/25 08:00 02/07/25 08:09 02/07/25 10:00 Temperature 97.8 F Pulse Rate 102 H 100 92 Respiratory Rate 20 Blood Pressure 170/97 H Pulse Oximetry 93 Oxygen Delivery Oxygen Flow Rate Fraction of Inspired Oxygen 02/07/25 11:57 02/07/25 12:00 02/07/25 14:00 Temperature 98.0 F Pulse Rate 94 97 97 Respiratory Rate 20 Blood Pressure 147/74 H Pulse Oximetry 93 Oxygen Delivery Oxygen Flow Rate Fraction of Inspired Oxygen 02/07/25 16:10 02/07/25 19:52 02/07/25 19:55 Temperature 98.2 F Pulse Rate 97 100 99 Respiratory Rate 18 20 20 Blood Pressure 122/76 Pulse Oximetry 95 90 Oxygen Delivery Nasal Cannula Oxygen Flow Rate 4 Fraction of Inspired Oxygen 36 02/07/25 20:00 02/07/25 20:00 02/07/25 20:04 Temperature 98.6 F Pulse Rate 93 88 Respiratory Rate 18 20 Blood Pressure 143/70 H Pulse Oximetry 89 L 91 Oxygen Delivery Nasal Cannula Oxygen Flow Rate 4 Fraction of Inspired Oxygen 02/07/25 22:07 02/07/25 23:00 02/08/25 00:07 Temperature 98.5 F Pulse Rate 90 94 91 Respiratory Rate 17 Blood Pressure 142/69 H Pulse Oximetry 95 92 Oxygen Delivery Oxygen Flow Rate Fraction of Inspired Oxygen 02/08/25 00:58 02/08/25 03:44 02/08/25 04:00 Temperature 98.0 F Pulse Rate 95 93 92 Respiratory Rate 20 17 Blood Pressure 143/78 H Pulse Oximetry 91 Oxygen Delivery Oxygen Flow Rate Fraction of Inspired Oxygen Intake/Output Intake/Output: Intake & Output 02/05/25 02/06/25 02/07/25 02/08/25 23:59 23:59 23:59 23:59 Intake Total 1300 1360 Output Total 100 400 Balance 1200 960 Meds/Results Medications: Active Medications Generic Name Dose Route Start Last Admin Trade Name Freq PRN Reason Stop Dose Admin Acetaminophen 650 mg 02/06/25 15:03 Acetaminophen 325 Mg Tablet PO Q4H PRN Mild Pain (1-3) or Fever Albuterol/Ipratropium 3 ml 02/06/25 20:00 02/08/25 07:30 Ipratropium 0.5 Mg/Albuterol Sulfate 2.5 Mg Ampul.Neb 3 Ml INHALATION 3 ml Q6HRT YOMAIRA Administration Amlodipine Besylate 2.5 mg 02/08/25 09:00 Amlodipine Besylate 2.5 Mg Tablet PO DAILY YOMAIRA Benzonatate 100 mg 02/06/25 16:24 Benzonatate 100 Mg Capsule PO TID PRN Cough Dextrose 12.5 gm 02/06/25 15:03 Dextrose 50% 25 Gm/50 Ml Syringe IV PUSH PRN PRN Hypoglycemia Protocol Enoxaparin Sodium 40 mg 02/07/25 09:00 02/07/25 08:47 Enoxaparin 40 Mg/0.4 Ml Syringe SUB-Q 40 mg DAILY YOMAIRA Administration Furosemide 40 mg 02/06/25 21:00 02/07/25 21:56 Furosemide Inj 40 Mg/4 Ml Vial IV PUSH 40 mg Q12HR YOMAIRA Administration Glucagon 1 mg 02/06/25 15:03 Glucagon For Inj 1 Mg Vial IM PRN PRN Hypoglycemia Protocol Glucose 15 gm 02/06/25 15:03 Glucose Oral Gel 15 Gm Of Glucse In 37.5 Gm Tube PO PRN PRN Hypoglycemia Protocol Guaifenesin 600 mg 02/06/25 21:00 02/07/25 21:56 Guaifenesin 12 Hr 600 Mg Tabcr PO 600 mg Q12HR YOMAIRA Administration Hydralazine HCl 25 mg 02/07/25 17:12 Hydralazine Hcl 25 Mg Tablet PO Q8H PRN Hypertensive Emergency Ceftriaxone Sodium 1 gm/ 50 mls @ 100 mls/hr 02/07/25 13:00 02/07/25 12:54 Sodium Chloride IVPB 100 mls/hr Q24H YOMAIRA Administration Azithromycin 500 mg/ Sodium 250 mls @ 250 mls/hr 02/07/25 13:00 02/07/25 12:54 Chloride IVPB 02/10/25 13:59 250 mls/hr Q24H YOMAIRA Administration Dextrose 1,000 mls @ 100 mls/hr 02/06/25 15:03 Dextrose 5% 1,000 Ml IVPB PRN PRN Hypoglycemia Protocol Insulin Aspart 2 - 5 units 02/06/25 17:00 02/07/25 17:33 Insulin Aspart (*Bkc) 100 Units/Ml SUB-Q 3 units TIDWM YOMAIRA Administration Protocol Ondansetron HCl 4 mg 02/06/25 15:03 Ondansetron Inj 4 Mg/2 Ml Vial IV PUSH Q4H PRN Nausea Perflutren Lipid Microsphere 0 ml 02/06/25 16:24 Perflutren Lipid Microspheres 1.5 Ml Vial Diluted To 10 Ml Total Volume IV PUSH 02/09/25 16:25 ONCE PRN adequate visualization Protocol Prednisone 40 mg 02/06/25 20:40 02/07/25 08:48 Prednisone 20 Mg Tablet PO 02/11/25 20:39 40 mg DAILY@0800 YOMAIRA Administration Radiology Results: ITS Impressions Head CT 02/06/25 12:24 IMPRESSION: 1. No acute intracranial findings. Chest X-Ray 02/06/25 12:41 Impression: CHF. Superimposed probable pneumonia Chest/Abdomen/Pelvis CTA 02/06/25 13:40 IMPRESSION: 1. No pulmonary embolism identified. 2. Moderate-sized bilateral pleural effusions. 3. Moderate-sized consolidations in the lower lobes and right middle lobe. Recommend follow-up to resolution. 4. Small to moderate size ground glass opacity scattered throughout both lungs most prominent in the upper lobes. Recommend follow-up to resolution. 5. Moderate-sized pericardial effusion. 6. Cholelithiasis. 7. Small amount of fluid and fat stranding scattered throughout the abdomen and pelvis for prominent in the right abdomen. 8. Concentric thickening of the cintron of the moderately distended bladder. Differential includes incomplete bladder wall distention, cystitis or sequelae from bladder outlet obstruction. 9. Moderate nonspecific anasarca. 10. Small bilateral fat-containing inguinal hernias, larger on the right which also contains fluid Labs Labs: Laboratory Results - last 24 hr 02/07/25 02/07/25 02/07/25 00:34 07:28 11:17 POC Capillary Glucose 190 H 265 H HIV 1&2 Ab/P24 Ag 4thGn Negative 02/07/25 02/07/25 15:13 21:28 POC Capillary Glucose 296 H 253 H HIV 1&2 Ab/P24 Ag 4thGn Quality VTE Prophylaxis VTE prophylaxis: pharmacologic ordered Hospitalist MIPS Advance Care Plan I have confirmed that the patient's Advanced Care Plan is present, code status is documented, or surrogate decision maker is listed in patient medical record.: Yes Medication Reconciliation I have utilized all available resources to obtain, update and review the patients current medications (includes all prescriptions, OTC, herbals, cannabis, and nutritional supplements).: Yes
[2025-02-08 08:56] LABS: INR 1.1; Prothrombin Time 13.9 Seconds (11.1-14.7)
[2025-02-08 08:57] LABS: Partial Thromboplastin Time 27.8 Seconds (22.3-36.8)
[2025-02-08] MEDS: guaiFENesin 12 HR 600 MG TABCR PO (09:26)
[2025-02-08] MEDS: FUROSEMIDE INJ 40 MG/4 ML VIAL IV PUSH (09:27)
[2025-02-08 11:51] LABS: Estimated CRCL calculation 28 ml/min; Estimated Glomerular Filt Rate 25
[2025-02-08] MEDS: CEFEPIME 2 GM in SODIUM CHLORIDE 0.9% IV 50 ML 100 ML IVPB (12:07)
--- NOTE | 2025-02-08 13:07 | P.CONPL_ITS ---
Assessment and Plan Assessment and plan (1) Pleural effusion: Code(s): J90 - Pleural effusion, not elsewhere classified Status: Acute Assessment and Plan: Patient presents with shortness of breath, large free flowing bilateral pleural effusions, anasarca, afebrile, white blood cell count 5.6, BNP 21487, procalcitonin 0.1, acute on chronic hypercarbic and hypoxemic respiratory failure, CT angiogram of the chest with large bilateral pleural effusions and adjacent compressive atelectasis. subsequent echocardiogram shows LVEF 45-50% with grade 2 diastolic dysfunction. Etiology of bilateral pleural effusions includes: Fluid overload from CHF, and possible pneumonia. 02/08/25: 02/08/2025: The patient has just completed his right thoracentesis with 1100 mL of straw-colored fluid. He notices no difference in his breathing. He states that his cough is the same his presentation and his phlegm is now thick. Creatinine 2.57. He is afebrile. Patient is currently on 6 L Venti mask with saturations 94%. ABG is 7.30/53/64. Weight today is 81.4 kg. Patient's antibiotics were changed to vancomycin, cefepime and Flagyl for worsening oxygenation and lethargy. The patient tells me he could not tolerate the pressures on BiPAP and I placed him on a noninvasive ventilator with the AVAPS mode and adjusted the settings to comfort resulting in a rate of 14, tidal volume 500, EPAP 5, minimal inspiratory pressure 6, maximal inspiratory pressure 25, inspiratory time 1.2, rise of 5 which is the slowest and 36% FiO2. Saturations were 98%. plan: Agree with thoracentesis to assess for transudate versus exudate. Patient had 1100 mL of straw colored fluid. pH is 7.44. Nucleated cells 114 with a differential of neutrophils 15, lymphocytes 45, macrophages 38, mesothelial cells 2. Full set of chemistries, cell count, microbiology, and cytology to be sent. Chest x-ray with improved but persistent right pleural effusion and large left pleural effusion. Patient has acute kidney injury and I think it will be difficult to aggressively diurese him as we are holding Lasix. Will perform left thoracentesis on 11/09/2024. I think it is unlikely that this is bacterial pneumonia. Patient was treated with ceftriaxone and azithromycin on from 02/06 through and on 02/08 he was changed to vancomycin, cefepime and Flagyl. Will continue today. Blood cultures are negative, COVID influenza RSV RT PCR assay negative, MRSA swab pending. I have ordered respiratory pathogen panel, urine for Legionella, urine for pneumococcal and serum mycoplasma IgM. patient with worsening GERONIMO and will discontinue Lasix at this time. Discussed with Lindsey Whitley, will follow with you. (2) Acute on chronic respiratory failure with hypoxia and hypercapnia: Code(s): J96.21 - Acute and chronic respiratory failure with hypoxia; J96.22 - Acute and chronic respiratory failure with hypercapnia Status: Acute Assessment and Plan: Patient reportedly is not on any home oxygen. ABG on presentation on 3 L nasal cannula the pH of 7.31/64/73. He was initially placed on BiPAP but only tolerated this for 1 hour. 02/08/2025: Patient is currently on 6 L Venti mask with saturations 94%. ABG is 7.30/53/64. The patient tells me he could not tolerate the pressures on BiPAP and I placed him on a noninvasive ventilator with the AVAPS mode and adjusted the settings to comfort resulting in a rate of 14, tidal volume 500, EPAP 5, minimal inspiratory pressure 6, maximal inspiratory pressure 25, inspiratory time 1.2, rise of 5 which is the slowest and 36% FiO2. Saturations were 98%. plan: Will continue noninvasive ventilation with the AVAPS mode p.r.n. during the day and at night. I will check an ABG prior to removal in the morning. Will treat patient for fluid overload and possible pneumonia and once these issues are resolved will reassess for chronic hypercarbic respiratory failure. Goal saturation 90-94%. Adjust oxygen accordingly. Patient is do not resuscitate, do not intubate. (3) Tobacco dependence: Code(s): F17.200 - Nicotine dependence, unspecified, uncomplicated Status: Acute Assessment and Plan: Patient with 58 pack year tobacco use, currently smoking. He has no known diagnosis of COPD. There is no bullous emphysema on his CT scan of the chest on 02/06/2025. I have no PFTs. He did complain of wheezing at home. He had a change in his phlegm. He says that his phlegm is thick and difficult to expectorate. 02/08/2025: Patient has no wheezing today. He has received 3 days of prednisone 40 mg a day and will discontinue. I will increase the frequency of his nebulizers from q.6 hours to q.4 hours. I will increase his guaifenesin from 600 p.o. b.i.d. to 1200 p.o. b.i.d.. I will send an alpha 1 anti trypsin genotype and level on 02/09/2025. History of Present Illness History of Present Illness Consult date: 02/08/25 Chief complaint: acute hypoxic/hypercapnic resp failure,pna,chf,uti Narrative: 02/08/2025: This is a new pulmonary consult for pleural effusions and pneumonia. 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 Patient tells me he has no formal diagnosis of COPD. Patient smoked tobacco since age 11 to current at 1 pack per day for a total of 58 pack years. He was exposed to secondhand smoke currently. 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 He denies sand blasting, welding, professional painting, steel mill house supervisor, [employer] work or coal mining. Since his right BKA on 11/11/2022 he does minimal walking. He does have bilateral lower extremity prosthesis but he says he just has difficulty walking with both of these. 02/06/2025: Patient presented to the emergency department with 2-3 weeks of weakness, 1 week history of shortness of breath, cough and 1-2 days of confusion. In the emergency department his blood pressure is 170/94, heart rate 103, respirations 19, on 3 L nasal cannula saturations 96%. He had decreased breath sounds bilaterally. White blood cell count 5.6, creatinine 1.52, BUN 34, bicarbonate 30, BNP 60179, procalcitonin 0.1, D-dimer 0.96. 3 L ABG 7.31/64/ 73. COVID influenza RSV RT PCR assay negative, UA with white blood cell count 51-100, no bacteria. CT angiogram of the chest showed no PE, large right greater than left pleural effusions with adjacent compressive atelectasis, anasarca. Patient was treated for fluid overload, pneumonia and COPD exacerbation with IV Lasix, ceftriaxone and azithromycin and prednisone and DuoNebs. He was placed on BiPAP but only use this for approximately 1 hour and then refused. 02/07/2025: Patient was HIV negative, white blood cell count 6.2, creatinine 1.61, echocardiogram with LVEF 45-50%, grade 2 diastolic dysfunction, normal right ventricular size, normal right atrial size, no PASP calculated. Trivial pericardial effusion. Saturations on 4 L nasal cannula 89-95%. 02/08/2025: The patient has just completed his right thoracentesis with 1100 mL of straw-colored fluid. He notices no difference in his breathing. He states that his cough is the same his presentation and his phlegm is now thick. Creatinine 2.57. He is afebrile. Patient is currently on 6 L Venti mask with saturations 94%. ABG is 7.30/53/64. Weight today is 81.4 kg. Patient's antibiotics were changed to vancomycin, cefepime and Flagyl for worsening oxygenation and lethargy. The patient tells me he could not tolerate the pressures on BiPAP and I placed him on a noninvasive ventilator with the AVAPS mode and adjusted the settings to comfort resulting in a rate of 14, tidal volume 500, EPAP 5, minimal inspiratory pressure 6, maximal inspiratory pressure 25, inspiratory time 1.2, rise of 5 which is the slowest and 36% FiO2. Saturations were 98%. 02/07/25: Echo Summary 1. Complete two-dimensional, color flow and Doppler transthoracic echocardiogram is performed. 2. Concentric left ventricular hypertrophy with mild systolic dysfunction, inferior/posterior hypokinesia. 3. Grade 2 diastolic noncompliance. 4. Mild mitral regurgitation. 5. Mildly enlarged ascending aorta, 4.2 cm. 6. Trivial posterior pericardial effusion. Right Ventricle Right ventricular chamber dimension is normal. Right Atria Right atrial chamber dimension is normal. 02/06/25: Exam: CT chest with contrast Clinical History: [Hypoxia. ] Comparison: [ ] Technique: Multiple axial CT images of the chest, abdomen and pelvis with IV contrast. Sagittal and coronal reformatted images were obtained. FINDINGS: Lungs and pleura: [ Moderate-sized bilateral pleural effusions.] No pulmonary embolism identified. No pneumothorax. Moderate-sized consolidations in the lower lobes and right middle lobe. Small to moderate size ground glass opacity scattered throughout both lungs most prominent in the upper lobes. Mediastinum and pulmonary steffany: [ No mass or adenopathy.] Axillary/intramammary and supraclavicular: [ No mass or adenopathy.] Heart and great vessels: [ Normal heart size.[ [ Moderate-sized pericardial effusion.] [ No aneurysm.] Chest Wall: [ Unremarkable.] Liver: [ No mass.] [ No intrahepatic biliary duct dilatation.] Gallbladder: [Cholelithiasis.No wall thickening.] Common bile duct: [ Normal caliber.] [ No stones.] Spleen: [ The spleen is not enlarged. Spleen is slightly heterogeneous. Pancreas: [ No mass. No pancreatic fluid collection.] Adrenals: [ No masses.] Kidneys: [ No masses. No hydronephrosis.][ There are a few too small to characterize low-attenuation lesions in the kidneys. There is a 2 cm cyst in the left kidney.] There are a few tiny nonobstructing renal stones. Lymph nodes: [ No adenopathy in the abdomen or pelvis.] Stomach, small bowel and colon: [ No bowel wall thickening or obstruction.] Peritoneum cavity: Small amount of fluid and fat stranding scattered throughout the abdomen and pelvis for prominent in the right abdomen. Bladder: Concentric thickening of the cintron of the moderately distended bladder. Differential includes incomplete bladder wall distention, cystitis or sequelae from bladder outlet obstruction. Prostate gland is mildly enlarged and partially calcified. Osseous structures: [ No acute fracture or destructive lesion.] [ Multilevel degenerative change in the visualized spine.] Abdominal aorta: [ No aneurysm.] Additional findings: Moderate nonspecific anasarca. Small bilateral fat- containing inguinal hernias, larger on the right which also contains fluid. IMPRESSION: 1. No pulmonary embolism identified. 2. Moderate-sized bilateral pleural effusions. 3. Moderate-sized consolidations in the lower lobes and right middle lobe. Recommend follow-up to resolution. 4. Small to moderate size ground glass opacity scattered throughout both lungs most prominent in the upper lobes. Recommend follow-up to resolution. 5. Moderate-sized pericardial effusion. 6. Cholelithiasis. 7. Small amount of fluid and fat stranding scattered throughout the abdomen and pelvis for prominent in the right abdomen. 8. Concentric thickening of the cintron of the moderately distended bladder. Differential includes incomplete bladder wall distention, cystitis or sequelae from bladder outlet obstruction. 9. Moderate nonspecific anasarca. 10. Small bilateral fat-containing inguinal hernias, larger on the right which also contains fluid 06/10/2020 EXAMINATION: XR chest 2V INDICATION: Chest pain TECHNIQUE: AP and lateral views of the chest are obtained. COMPARISON: 06/18/2019 FINDINGS: The lungs are free of acute opacities. There is no pleural effusion or pneumothorax. The cardiomediastinal silhouette is normal. There is moderate thoracic spondylosis. IMPRESSION: 1. No acute cardiopulmonary abnormality. Review of Systems 2 Constitutional: Constitutional: Reports no additional constitutional complaints Eyes: Eyes: Reports no additional eye complaints ENT: Reports system reviewed and no additional complaints, except as documented Cardiovascular: Cardiovascular: Reports no additional cardiovascular complaints Respiratory: Respiratory: Reports no additional respiratory complaints Gastrointestinal: Gastrointestinal: Reports no additional gastrointestinal complaints Musculoskeletal: Musculoskeletal: Reports no additional musculoskeletal complaints Neurologic: Reports system reviewed and no additional complaints, except as documented Psychiatric: Psychiatric: Reports no additional psychiatric complaints Endocrine: Endocrine: Reports no additional endocrine complaints Hematologic/Lymphatic: Hematologic/Lymphatic: Reports no additional hematologic/lymphatic complaints Allergic/Immunologic: Allergic/Immunologic: Reports no additional allergic/immunologic complaints FOR[facility]LY [facility] Past Medical History Medical History Insulin dependent diabetes mellitus Hyperlipidemia Hypertension Tobacco dependence Polysubstance abuse Paroxysmal atrial fibrillation Prostate cancer Status post radiation. Gastroesophageal reflux disease Tuberculosis (2015) Diabetic retinopathy Hepatitis C Anxiety Depression Surgical History Surgical History History of right below knee amputation History of appendectomy History of tonsillectomy History of left below knee amputation Family History Family History Father Diabetes mellitus Son Heart disease Mother Heart disease Sibling Cerebral aneurysm Social History Social History Social History: Surrogate medical decision maker: Luma Blank, daughter. Code status: Full code. Smoking packs per day: 0.5 Smoking cigarettes per day: 10.0 Years smoked: 54 Smoking pack-years: 27.00 Smoking status: Light tobacco smoker Tobacco type: cigarettes Second hand tobacco smoke exposure: Yes Alcohol intake: never Drinks per week: 14 Substance use: never Substance use type: marijuana and amphetamines Lack of Transportation: YES Lack of Food: Often True Current Housing: I Have Housing Concerned About Future Housing: YES Difficulty Paying Gas/Electric Bills: YES Difficulty Paying for Meds: YES Currently Unemployed: No Education: High School Diploma/GED Difficulty w/ Childcare or Family Care: No Living arrangements: with friend(s) Additional living arrangements comments: Currently staying with a friend. 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 Spiritual care concerns: No Agree to blood products: Yes Meds Home Medications and Allergies Home Medications ?Medication ?Instructions ?Recorded ?Confirmed ?Type metformin 500 mg tablet 500 mg PO BID 11/07/2202/06 History insulin glargine 100 unit/mL (3 15 unit (0.15 mL) subc ut HS #15 mL 11/14/22 02/06/25 Rx mL) subcutaneous pen (Lantus Solostar U-100 Insulin) insulin lispro 100 unit/mL 4 unit (0.04 mL) subcut AC #15 mL 11/14/22 02/06/25 Rx subcutaneous pen sertraline 50 mg tablet (Zoloft) 25 mg (1/2 x 50 mg) P O QAM #30 tabs 11/14/22 02/06/25 Rx Allergies Allergy/AdvReac Type Severity Reaction Status Date / Time No Known Allergies Allergy Mild Verified 02/06/25 18:35 Vital Signs Vital Signs - 24 hr 02/07/25 14:00 02/07/25 16:10 02/07/25 19:52 Temperature 36.8 C Pulse Rate 97 97 100 Respiratory Rate 18 20 Blood Pressure 122/76 Pulse Oximetry 95 Oxygen Delivery Oxygen Flow Rate Fraction of Inspired Oxygen 02/07/25 19:55 02/07/25 20:00 02/07/25 20:00 Temperature 37.0 C Pulse Rate 99 93 Respiratory Rate 20 18 Blood Pressure 143/70 H Pulse Oximetry 90 89 L 91 Oxygen Delivery Nasal Cannula Nasal Cannula Oxygen Flow Rate 4 4 Fraction of Inspired Oxygen 36 02/07/25 20:04 02/07/25 22:07 02/07/25 23:00 Temperature 36.9 C Pulse Rate 88 90 94 Respiratory Rate 20 17 Blood Pressure 142/69 H Pulse Oximetry 95 92 Oxygen Delivery Oxygen Flow Rate Fraction of Inspired Oxygen 02/08/25 00:07 02/08/25 00:58 02/08/25 03:44 Temperature 36.7 C Pulse Rate 91 95 93 Respiratory Rate 20 17 Blood Pressure 143/78 H Pulse Oximetry 91 Oxygen Delivery Oxygen Flow Rate Fraction of Inspired Oxygen 02/08/25 04:00 02/08/25 07:40 02/08/25 08:00 Temperature Pulse Rate 92 Respiratory Rate Blood Pressure Pulse Oximetry 93 96 Oxygen Delivery Nasal Cannula Nasal Cannula Oxygen Flow Rate 4 4 Fraction of Inspired Oxygen 36 02/08/25 08:00 02/08/25 08:00 02/08/25 12:00 Temperature 36.8 C 36.8 C Pulse Rate 92 95 94 Respiratory Rate 18 24 H Blood Pressure 137/82 144/85 H Pulse Oximetry 94 98 Oxygen Delivery Oxygen Flow Rate Fraction of Inspired Oxygen 02/08/25 12:00 Temperature Pulse Rate 93 Respiratory Rate Blood Pressure Pulse Oximetry Oxygen Delivery Oxygen Flow Rate Fraction of Inspired Oxygen Exam 2 Const: General: cooperative, healthy appearing and comfortable Other: A&O x3. HENMT: Head: normal to inspection Ears: hearing grossly normal bilaterally Eyes: General: appearance normal, both eyes and all related structures Neck: Neck: normal visual inspection Chest: Chest palpation & inspection: normal inspection of the chest Resp: Effort & Inspection: normal respiratory effort and able to speak in complete sentences Auscultation: no crackles, no rales, no rhonchi, no wheezes and diminished lung sounds Other: Decreased breath sounds bilaterally left greater than right no wheezing. Cardio: Jugular venous distension: no JVD GI: Inspection: normal to inspection GI Palp: No abdominal tenderness Skin: General skin exam: normal color Neuro: General: oriented to person, oriented to place and oriented to time Extrem: General: normal to inspection Other: Bilateral BKA a days. No thigh edema Psych: Appearance: grossly normal Results Laboratory Findings 02/07/25 03:34 02/08/25 11:26 ABG, PT/INR, D-dimer: ABG ABG pH 7.305 (7.350-7.450) L 02/06/25 11:59 ABG pCO2 64.0 mmHg (35.0-45.0) H* 02/06/25 11:59 ABG pO2 72.6 mmHg (80.0-100.0) L 02/06/25 11:59 ABG O2 Saturation 92.7 % (95.0-100.0) L 02/06/25 11:59 PT/INR, D-dimer PT 13.9 Seconds (11.1-14.7) 02/08/25 08:22 INR 1.1 02/08/25 08:22 D-Dimer 0.96 ug/mL (<0.48) H 02/06/25 10:34 Abnormal lab findings: Abnormal Labs 02/06/25 02/06/25 02/06/25 10:23 10:34 11:39 RBC Hgb 12.8 L D Hct MCHC 30.5 L RDW 14.9 H Plt Count MPV 11.7 H Immature Gran % (Auto) Neut % (Auto) 79.7 H Lymph % (Auto) 13.1 L [place] % (Auto) Lymph # (Auto) 0.74 L Abs Immat Gran (auto) D-Dimer 0.96 H ABG pH ABG pCO2 ABG pO2 ABG HCO3 ABG O2 Saturation ABG O2 Content Carboxyhemoglobin Reduced Hemoglobin BUN 34 H D Creatinine 1.52 H Estimated GFR 46 L Glucose 172 H POC Capillary Glucose 165 H Hemoglobin A1c Calcium Alkaline Phosphatase 159 H NT-Pro-B Natriuret Pep 45592 H Albumin Urine Appearance Cloudy H Urine Protein 4+ H Urine Glucose (UA) Trace H Urine Ketones Trace H Ur Blood (Man) 2+ H Leukocyte Esterase Rfl 1+ H Urine RBC 11-20 H Urine WBC 51-100 H Granular Casts 3-4 H 02/06/25 02/06/25 02/07/25 11:59 18:38 03:34 RBC 4.47 L Hgb 11.9 L Hct 40.8 L MCHC 29.2 L RDW 14.8 H Plt Count 137 L MPV 12.4 H Immature Gran % (Auto) 1.4 H Neut % (Auto) 92.8 H Lymph % (Auto) 4.3 L [place] % (Auto) 1.0 L Lymph # (Auto) 0.27 L Abs Immat Gran (auto) 0.09 H D-Dimer ABG pH 7.305 L ABG pCO2 64.0 H* ABG pO2 72.6 L ABG HCO3 31.1 H ABG O2 Saturation 92.7 L ABG O2 Content 15.9 L Carboxyhemoglobin 3.0 H Reduced Hemoglobin 6.7 H BUN 37 H Creatinine 1.61 H Estimated GFR 43 L Glucose 188 H POC Capillary Glucose Hemoglobin A1c 9.0 H Calcium 8.3 L Alkaline Phosphatase 158 H NT-Pro-B Natriuret Pep Albumin 3.4 L Urine Appearance Urine Protein Urine Glucose (UA) Urine Ketones Ur Blood (Man) Leukocyte Esterase Rfl Urine RBC Urine WBC Granular Casts 02/07/25 02/07/25 02/07/25 07:28 11:17 15:13 RBC Hgb Hct MCHC RDW Plt Count MPV Immature Gran % (Auto) Neut % (Auto) Lymph % (Auto) [place] % (Auto) Lymph # (Auto) Abs Immat Gran (auto) D-Dimer ABG pH ABG pCO2 ABG pO2 ABG HCO3 ABG O2 Saturation ABG O2 Content Carboxyhemoglobin Reduced Hemoglobin BUN Creatinine Estimated GFR Glucose POC Capillary Glucose 190 H 265 H 296 H Hemoglobin A1c Calcium Alkaline Phosphatase NT-Pro-B Natriuret Pep Albumin Urine Appearance Urine Protein Urine Glucose (UA) Urine Ketones Ur Blood (Man) Leukocyte Esterase Rfl Urine RBC Urine WBC Granular Casts 02/07/25 02/08/25 02/08/25 21:28 07:42 11:26 RBC Hgb Hct MCHC RDW Plt Count MPV Immature Gran % (Auto) Neut % (Auto) Lymph % (Auto) [place] % (Auto) Lymph # (Auto) Abs Immat Gran (auto) D-Dimer ABG pH ABG pCO2 ABG pO2 ABG HCO3 ABG O2 Saturation ABG O2 Content Carboxyhemoglobin Reduced Hemoglobin BUN Creatinine 2.57 H Estimated GFR 25 L Glucose POC Capillary Glucose 253 H 191 H Hemoglobin A1c Calcium Alkaline Phosphatase NT-Pro-B Natriuret Pep Albumin Urine Appearance Urine Protein Urine Glucose (UA) Urine Ketones Ur Blood (Man) Leukocyte Esterase Rfl Urine RBC Urine WBC Granular Casts
--- NOTE | 2025-02-08 13:55 | CY_PTH ---
PATIENT: Humberto Helms LOC: [id number] U#:[id number] AGE/SX: 69/M ROOM: 246 RE02/07/[address]: Pedro Ruano MD : [id number] BED: 01 DIS: 02/16/2025 SPEC #: [id number] RECD: 02/09/25 06:53 STATUS: NARCISA REJunito #: [id number] JENNY: 02/08/25 13:[address]: Tricia Whitley DEPT: [facility] Cytology RECD BY: Beatrice Souza ENTERED: 02/09/25 06:53 SP TYPE: Cytology OT DR: Riley Pearl MD UNKNOWN,DOCTOR Derek Sweeney MD Tissues: A - Pleural Fluid Procedures: Hematoxylin and Eosin Stain Cell Block [id number] JOSE [id number] Calretinin Cytopathology Cytospin
[2025-02-08 14:04] LABS: CRP 0.9 mg/dL (<1.0)
[2025-02-08 14:06] LABS: NT Pro B Type Natriuretic Pept 23600 pg/mL (19.9-100)
[2025-02-08] MEDS: AZITHROMYCIN IV 500 MG in SODIUM CHLORIDE 0.9% IV 250 ML IVPB (14:21)
[2025-02-08] MEDS: VANCOMYCIN 1,250 MG/NS 250 ML 1,250 MG/250 ML BAG 166.67 MG IVPB (14:21)
[2025-02-08 14:34] LABS: Alveolar/Arterial O2 Gradient 87.0 mmHg; Fractional Inspired Oxygen 30 %; HCO3 ABG 25.4 mEq/l (22.0-26.0); Oxygen Content ABG 15.4 %vol (16.0-22.0); Oxygen Saturation ABG 90.1 % (95.0-100.0); PCO2 ABG 53.2 mmHg (35.0-45.0); PO2 ABG 64.4 mmHg (80.0-100.0); PO2 FiO2 Ratio Arterial Blood 2.15 %
[2025-02-08 14:46] LABS: Site Drawn RIGHT BRACHIAL
[2025-02-08 14:47] LABS: Liters per Minute 6.0 LPM
[2025-02-08 14:52] LABS: Appearance Pleural Fluid Hazy (Clear); Color Pleural Fluid Yellow (Colorless); Lymphocytes Pleural Fluid 45 %; Macrophages Pleural Fluid 38 %; Mesothelial Cells Pleural Flui 2 %; Neutrophils Pleural Fluid 15 % (0-25); Nucleated Cell Pleural Fluid 114 /uL (0-1000)
[2025-02-08 15:11] LABS: Procalcitonin 0.1 ng/mL
--- NOTE | 2025-02-08 16:15 | PC.NURSE ---
Pt is supposed to be wearing a continuous bipap which he refuses. Pt has continuously ripped off his oxygen throughout the day. Pt has been educated numerous times on the importance of keeping the oxygen on. Pt was on 3L nasal cannula at the beginning of this shift and O2 sats were low on monitoring engineer. Pt breathes mostly through his mouth so he was switched to a venti mask. Settings have been continuously adjusted throughout the day from 5L-6L for O2 sats to remain greater than 88%. Dr. Carter came to see patient and spent a lot of time adjusting the bipap mask and settings to find a comfortable and tolerable setting for the patient. Once mask had been adjusted pt stated to Dr. Carter that he would be willing to wear the bipap. Pt kept bipap on for 30 minutes until he took it off. Pt was then instructed to place bipap back on to which he responded f*ck that. Pt was then educated on the importance of bipap and I reiterated everything that Dr carter told the patient. Pt was then placed back on his venti mask at 5L and continuous pulse ox is still monitoring his O2 sats. Pt still continues to take oxygen mask off. 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
--- NOTE | 2025-02-08 19:35 | PC.NURSE ---
walked into pts room to assess pt an saw pt had black eye on right and cut under right eye. when I asked the pt how this happened pt stated when you guys made me wear that oxygen mask you guys caused this this RN was told pt had riped bipap off of face and tossed it but was not present for the event.
[2025-02-08 19:39] LABS: Hematocrit 39.6 % (42.0-52.0); Hemoglobin 11.9 g/dL (14.0-18.0); Immature Granulocyte Percent A 0.7 % (0-0.5); Immature Platelet Fraction Pct 10.1 % (0.9-11.2); Lymphocytes Absolute Auto 0.30 K/mm3 (0.9-3.2); Mean Corpuscular HGB Conc 30.1 g/dl (32-36); Mean Corpuscular Hemoglobin 26.7 pg (26-34); Mean Corpuscular Volume 89.0 fl (80-100); Nucleated Red Blood Cells Absolute Auto 0.000 K/mm3 (0.0-0.012); Nucleated Red Blood Cells Perc 0.0 % (0.0-0.2); Platelet Count Result 141 k/mm3 (150-375); Red Blood Count 4.45 M/mm3 (4.6-6.20); White Blood Count 7.6 K/mm3 (4.5-10.0)
[2025-02-08 19:49] LABS: INR 1.0; Prothrombin Time 13.4 Seconds (11.1-14.7)
[2025-02-08 19:50] LABS: Partial Thromboplastin Time 21.7 Seconds (22.3-36.8)
[2025-02-08 20:04] LABS: Anisocytosis 1+; Burr Cells 1+; Macrocytosis Occasional (NORMAL); Schistocytes None Seen
[2025-02-08] MEDS: HEPARIN SOD/D5W 100 UNITS/ML 25,000 UNITS/250 ML BAG 15 UNITS IV CONT (21:08)
[2025-02-08] MEDS: guaiFENesin 12 HR 600 MG TABCR 1200 MG PO (21:14)
[2025-02-08] MEDS: HEPARIN SOD/D5W 100 UNITS/ML 25,000 UNITS/250 ML BAG 10 UNITS IV CONT (22:29)
--- NOTE | 2025-02-08 22:40 | PC.NURSE ---
pharmacy changed rate of heparin from 15 mls/hr to 10mls/hr. Spoke to Nikko in pharmacy for verification
[2025-02-09] VITALS (20 sets, daily range): BP systolic 125–141; BP diastolic 65–84; PULSE 84–98; RESP 16–22; TEMP 36.4–36.9; O2SAT 91–97
--- NOTE | 2025-02-09 00:23 | PC.NURSE ---
pt pulled Iv out and is on a blood thinner. gown has blood on it but pt is requesting to not have gown changed. This RN will continue to make attempts to clean pt.
[2025-02-09] MEDS: IPRATROPIUM 0.5 MG/ALBUTEROL SULFATE 2.5 MG AMPUL.NEB 3 ML INHALATION ×5 (00:40→19:49)
--- NOTE | 2025-02-09 03:01 | PC.NURSE ---
phlebotomy went in to draw labs pt refused. pt began taking oxygen out of nose pt was reminded that oxygen is needed. Komal BLACKWELL came in the room to help pt proceed to tell myself, Komal BLACKWELL , Magnus (client relations specialist) to fuck off and leave me alone pt then preceded to try to kick komal. Pt encouraged to wear oxygen and keep it on pt said im ready to now get out pt was reminded that if he needed anything to let us know.
--- NOTE | 2025-02-09 04:15 | PC.NURSE ---
Addendum entered by Renata Clark RN 02/09/25 05:09: pt is refusing to wear oxygen. pt has been educated on the importance of oxygen and what could happen if pt continues to decline oxygen including . pt states thats fine. Dr. Dominguez and Iraj Parrish ( charge nurse) all notified of the refusal of oxygen administration. Pt is a DNR. pt is orientated to person, place, time. Original Note: pt is refusing to wear oxygen. pt has been educated on the importance of oxygen and what could happen if pt continues to decline oxygen including . pt states thats fine. Dr. Dominguez and Iraj Parrish ( charge nurse) all notified of the refusal of oxygen administration. Pt is a DNR.
[2025-02-09 05:56] LABS: Alveolar/Arterial O2 Gradient 305.1 mmHg; Fractional Inspired Oxygen 60 %; HCO3 ABG 23.4 mEq/l (22.0-26.0); Oxygen Content ABG 15.5 %vol (16.0-22.0); PCO2 ABG 55.0 mmHg (35.0-45.0); PO2 ABG 62.2 mmHg (80.0-100.0); PO2 FiO2 Ratio Arterial Blood 1.04 %
[2025-02-09 06:03] LABS: Liters per Minute 10.0 LPM; Modified Allen's Test Pass; Oxygen Saturation ABG 87.6 % (95.0-100.0); Site Drawn LEFT RADIAL
[2025-02-09 06:45] LABS: Hematocrit 39.2 % (42.0-52.0); Hemoglobin 11.9 g/dL (14.0-18.0); Immature Granulocyte Percent A 0.5 % (0-0.5); Lymphocytes Absolute Auto 0.58 K/mm3 (0.9-3.2); Mean Corpuscular HGB Conc 30.4 g/dl (32-36); Mean Corpuscular Hemoglobin 27.0 pg (26-34); Mean Corpuscular Volume 88.9 fl (80-100); Nucleated Red Blood Cells Absolute Auto 0.000 K/mm3 (0.0-0.012); Nucleated Red Blood Cells Perc 0.0 % (0.0-0.2); Platelet Count Result 148 k/mm3 (150-375); Red Blood Count 4.41 M/mm3 (4.6-6.20); White Blood Count 6.5 K/mm3 (4.5-10.0)
[2025-02-09 06:57] LABS: Partial Thromboplastin Time 35.4 Seconds (22.3-36.8)
[2025-02-09 07:08] LABS: Alanine Aminotransferase 19 U/L (6-50); Albumin Level 3.3 g/dL (3.5-5.1); Alkaline Phosphatase 120 U/L (38-126); Anion Gap 9 mmol/L (4-12); Aspartate Amino Transferase 23 U/L (17-59); Bilirubin,Total 0.3 mg/dL (0.2-1.3); Blood Urea Nitrogen 67 mg/dL (9-20); Calcium 8.0 mg/dL (8.4-10.2); Carbon Dioxide 26 mmol/L (22-30); Chloride 101 mmol/L (98-107); Estimated CRCL calculation 24 ml/min; Estimated Glomerular Filt Rate 21; Glucose 212 mg/dL (65-110); Potassium 4.9 mmol/L (3.4-5.0); Sodium 136 mmol/L (137-145); Total Protein 6.8 g/dL (6.3-8.2)
[2025-02-09 07:14] LABS: Total Protein 6.8 g/dL (6.3-8.2)
[2025-02-09 07:22] LABS: Anion Gap 9 mmol/L (4-12); Blood Urea Nitrogen 64 mg/dL (9-20); Calcium 8.3 mg/dL (8.4-10.2); Carbon Dioxide 27 mmol/L (22-30); Chloride 100 mmol/L (98-107); Estimated CRCL calculation 23 ml/min; Estimated Glomerular Filt Rate 20; Glucose 215 mg/dL (65-110); Potassium 5.0 mmol/L (3.4-5.0); Sodium 136 mmol/L (137-145)
--- NOTE | 2025-02-09 07:23 | P.PNIM_ITS ---
Progress Note: A&P Assessment and Plan (1) Sepsis: Qualifiers: Sepsis acute organ dysfunction status: without acute organ dysfunction Sepsis type: sepsis due to unspecified organism Qualified Code(s): A41.9 - S epsis, unspecified organism Code(s): A41.9 - Sepsis, unspecified organism Status: Acute Assessment and Plan: Met SIRS criteria on admission: HR >90, RR >20. +Hypoxia, -HypoTN. Blood cultures obtained on 02/06, follow. LABS lactic and procalcitonin >> 0.9 and procal 0.1 IMAGING 02/06 CXR: CHF. Superimposed probable pneumonia 02/06 CTA chest/abdomen/pelvis: 1. No pulmonary embolism identified. 2. Moderate-sized bilateral pleural effusions. 3. Moderate-sized consolidations in the lower lobes and right middle lobe. Recommend follow-up to resolution. 4. Small to moderate size ground glass opacity scattered throughout both lungs most prominent in the upper lobes. Recommend follow-up to resolution. 5. Moderate-sized pericardial effusion. 6. Cholelithiasis. 7. Small amount of fluid and fat stranding scattered throughout the abdomen and pelvis for prominent in the right abdomen. 8. Concentric thickening of the cintron of the moderately distended bladder. Differential includes incomplete bladder wall distention, cystitis or sequelae from bladder outlet obstruction. 9. Moderate nonspecific anasarca. 10. Small bilateral fat-containing inguinal hernias, larger on the right which also contains fluid Antibiotics: Started on empiric Ceftiaxone 02/07, increased oxygen requirement on IV diuretics so broadened to Cefepime, Vanc, Flagyl 02/08 PLAN s/p 1L bolus, hold on further fluids due to concern for significant volume overload on imaging, see CHF. - suspected source -> pneumonia and UTI -Antibiotics as noted - monitor hemodynamic stability and O2 saturation (2) Acute on chronic respiratory failure with hypoxia and hypercapnia: Code(s): J96.21 - Acute and chronic respiratory failure with hypoxia; J96.22 - Acute and chronic respiratory failure with hypercapnia Status: Acute Assessment and Plan: Etiology of Respiratory Failure: Possible fluid overload from CHF vs pneumonia Imaging concerning for significant volume overload as evidenced by moderate pleural effusions, moderate nonspecific anasarca, moderate sized pericardial effusion. CTA negative for PE --Consults: pulmonary, cardiology, renal LABS WBC normal since admission 02/06 ABG: PH 7.305/CO2 64, HC03 31.1/O2 saturation 92.7% on 3L 02/08 ABG: Ph 7.297/53.2/25.4/O2 sat 901. on 6L 02/09 ABG: pH 7.246/ 55/23.4/ O2 sat 87.6 on 10L Acute respiratory failure air likely multifactorial including suspected CHF, multifocal pneumonia. Patient is an everyday smoker (1PPD), but no evidence of COPD on imaging. Initially started on Prednisone, now stopped. No wheezing --Pulmonary consulted, appreciate recommendations --nebulizers p.r.n --Off diuretics for GERONIMO --Antibiotics for pneumonia -- Tried BiPAP for an hour and took it off. Tried AVAPS 02/08 DNR/DNI (3) Pneumonia: Qualifiers: Laterality: bilateral Lung location: unspecified part of lung Pneumonia type: due to unspecified organism Qualified Code(s): J18.9 - Pneumonia, unspecified organism Code(s): J18.9 - Pneumonia, unspecified organism Status: Acute Assessment and Plan: 02/09 CT Concerning for pneumonia but WBC has been normal. No fevers Started on Cap tx: Ceftriaxone and azithromycin IV. Changed to Cefepime, Vanc, Flagyl 02/08 since increased oxygen requirements -Appreciate pulmonary recommendations - check MRSA PCR --sputum culture - Viral PCR negative on 02/06 - Supportive care: Mucinex yomaira, Tessalon Perles p.r.n., DuoNebs p.r.n., Tylenol p.r.n. (4) Congestive heart failure: Qualifiers: Heart failure chronicity: acute Heart failure type: unspecified Qualified Code(s): I50.9 - Heart failure, unspecified Code(s): I50.9 - Heart failure, unspecified Status: Suspected Assessment and Plan: Suspected acute CHF. No previous echo available. Decreased LVEF 45-50% and inferior/posterior hypokinesia. Also noted to have a moderate pericardial effusion on CT 02/07 TTE 1. Complete two-dimensional, color flow and Doppler transthoracic echocardiogram is performed. 2. Concentric left ventricular hypertrophy with mild systolic dysfunction, inferior/posterior hypokinesia. 3. Grade 2 diastolic noncompliance. 4. Mild mitral regurgitation. 5. Mildly enlarged ascending aorta, 4.2 cm. 6. Trivial posterior pericardial effusion. see CXR and CT impressions above, concern for volume overload. No peripheral edema to bilateral thighs. BNP 40140 02/06, [id number] on 02/08 PLAN - started on Lasix 40 mg IV b.i.d, on hold for worsening GERONIMO -No QUANG/ARB with GERONIMO - monitor I&Os and daily weights - trend renal function -Cardiology consult for new heart failure, also has a moderate pericardial effusion and limited medication options with GERONIMO (5) Pleural effusion: Code(s): J90 - Pleural effusion, not elsewhere classified Status: Acute Assessment and Plan: moderate-sized bilateral pleural effusions noted on CTA, suspected CHF, see above currently requiring supplemental O2, wean as tolerated, maintain O2 sat greater than 92% --Left Thoracentesis today (6) GERONIMO (acute kidney injury): Code(s): N17.9 - Acute kidney failure, unspecified Status: Acute Assessment and Plan: Baseline creatinine 0.7-0.9 from 2019 to 2022, no recent lab work available for comparison. Patient reports he has not been to the doctor in a couple of years Creatinine 1.52, BUN 34, GFR 46 upon admission on 02/06. CK 70 Bladder scan was 220 02/08 Total protein 6.8 Albumin 3.3 02/06 CTA showed concentric thickening of the cintron of the moderately distended bladder, differential including incomplete bladder wall distension, cystitis, or sequela from bladder outlet obstruction. UA concerning for UTI. Concern for CHF/volume overload as evidenced by a pleural effusions, moderate size pericardial effusion, and moderate nonspecific anasarca on CT. Starting diuresis. 02/08 renal US--No Hydronephrosis PLAN -Nephrology consulted today. Worsening despite diuresis & treatment of UTI. Recently received CT contrast. 4+ protein on initial UA --urine sodium, protein/creatinine ratio, urea --Repeat UA/micro. Check Urine Sodium, creatinine, urea --Holding diuretics (7) UTI (urinary tract infection): Qualifiers: Hematuria presence: with hematuria Urinary tract infection type: acute cystitis Qualified Code(s): N30.01 - Acute cystitis with hematuria Code(s): N39.0 - Urinary tract infection, site not specified Status: Acute Assessment and Plan: UA: Cloudy, 4+ protein, trace glucose, trace ketones, 2+ blood, 1+ leuk history is, 11-28 RBC, 51-100 WBC, occasional epithelial cells, no bacteria - UC pending, Growing GNB. Growing serratia marcescens - previous micro reviewed, grew Klebsiella in 2020 that was resistant to ampicillin only - started on Ceftriaxone on 02/07. Changed antibiotics as above, Now on Cefepime. (8) Diabetes: Qualifiers: Diabetes mellitus complication status: without complication Diabetes mellitus intermediate teacher insulin use: with correction use Diabetes mellitus type: type 2 Qualified Code(s): E11.9 - Type 2 diabetes mellitus without complications; Z79.4 - [facility] (current) use of insulin Code(s): E11.9 - Type 2 diabetes mellitus without complications Status: Chronic Assessment and Plan: Previously complicated by diabetic foot wounds, s/p bilateral BKA A1C 12.6% in 2022. 02/06/25 9.0 reports he is not on any home medications - hypoglycemia protocol - POC blood glucose ACHS - Started low dose sliding scale TIDWM. Blood sugars still elevated, add 2 units TID with meals --Diabetes ed consult prior to discharge. Will need a meter. Can consider oral meds for discharge (9) Paroxysmal atrial fibrillation: Code(s): I48.0 - Paroxysmal atrial fibrillation Status: Chronic Assessment and Plan: History of paroxysmal AFib, currently stable. - initial EKG showed sinus tachycardia, NSR - telemetry monitoring (10) HTN (hypertension): Qualifiers: Hypertension type: primary hypertension Qualified Code(s): I10 - Essential (primary) hypertension Code(s): I10 - Essential (primary) hypertension Status: Chronic Assessment and Plan: Reports he is not on any home medications, SBP 170/94 in the ER in the setting of respiratory distress - hydralazine p.r.n. for BP greater than 200 -started amlodipine 10 mg daily, blood pressure 120's. Reduced to 2.5mg<5mg daily. Give additional 5mg today for a total of 7.5mg --Follow BP - monitor Plan Diet: Diabetic GI Prophylaxis: N/a DVT Prophylaxis: Lovenox SQ changed to heparin drip IV fluids: 1L bolus, no further fluids due to concern for CHF Lines/Tubes: Peripheral IV Code Status: DNR/DNI Time Spent With Patient Time: 58 minutes Subjective Date/time seen: 02/09/25 07:23 Interval history: Worsening creatinine, up to 3.14, doubled since admission. Renal consult for GERONIMO. Bladder scan was <300 yesterday. Holding lasix Renal US normal Cardiology consult for HF, inferior/posterior hypokinesis on echo. Unable to diurese s/p Right thoracentesis yesterday, 1100 off Left Thoracentesis today. NPO, Heparin drip on hold. Bruising under right eye, may have scratched himself with a mask. No falls Has a sitter because he keeps taking off his oxygen mask. Talked about wanting to overnight but this morning said he is ok with the procedure and medical interventions MRSA PCR pending Reason for hospitalization 69 y/o M with PMH of pAfib, prostate cancer s/p radiation, TB (2104), polysubstance abuse, hepatitis C, HTN, DM presents here with generalized weakne ss and shortness of breath. 02/06 CT CAP showed bilateral pleural effusions, moderate pericardial effusion and moderate consolidations to the RML &LLL. Treating a CHF exacerbation, Possible pneumonia with pleural effusions and GERONIMO. Pulmonary consulted. Right thoracentesis done 02/08. Cardiology consult for heart failure. Echo with mildly reduced LVEF inferior/posterior hypokinesia Daughter Luma Blank [phone]. Son Ky Helms. No answer on either phone but daughter visited yesterday in the evening per nursing Review of Systems Review of Systems: All systems reviewed & are unremarkable except as noted in HPI and below Exam Narrative: General - Awake and alert. Eyes - PERRLA, EOM intact . Bruising under right eye ENT - No thrush, No erythema Neck - No noticeable or palpable swelling Lymph Nodes - No lymphadenopathy Cardiovascular - RRR no m/r/g, no JVD Lungs: Decreased breath sounds bilateral lower lobes, improved aeration to the right lung No wheezing, use of accessory muscles, no crackles Skin - Skin warm and dry, no wounds or rashes Abdomen - Normal bowel sounds, abdomen soft and nontender Extremities - No edema, cyanosis or clubbing Musculoskeletal - 5/5 strength, normal range of motion. Bilateral BKA Neurological ? Alert and oriented x 2-3 2024 Doesn't know month, CN 2-12 grossly intact. Psych: Normal mood and affect Const: General: comfortable and no acute distress Other: , male, older than stated age, acute on chronic ill appearance. Disheveled. HENMT: Face/Nose/Sinus: Normal nares present Mouth: Yes dry mucous membranes Eyes: General: appearance normal, both eyes and all related structures Sclera: sclerae normal Pupils: Equal, round and reactive pupils present EOM: EOMs intact bilaterally Resp: Effort & Inspection: normal respiratory effort Other: absent on the right starting mid lung to base, decreased from mid lung to base on the left. Faint crackles noted to the left lung base. No wheezing. Nasal cannula place. Cardio: Rate: regular rate Rhythm: regular rhythm Other: S1-S2 present without murmur, rub, ectopy GI: Other: Abdomen soft, nondistended, nontender. Normoactive bowel sounds in all quadrants. Skin: General skin exam: normal color and no rashes or lesions noted Wounds: no wounds Neuro: Cranial nerves: Yes Equal, round and reactive pupils present Speech: normal speech Motor exam (neuro): 5/5 motor strength present throughout Sensory Exam: normal sensation Other: Generalized weakness, A&O x3 Extrem: Other: bilateral BKA. no edema noted to bilateral thighs. Psych: Mental Status: mental status grossly normal Affect: Sad affect present Other: Fair to poor insight and judgment. Objective Data Vital Signs Vital Signs: Vital Signs - 24 hr 02/08/25 07:40 02/08/25 08:00 02/08/25 08:00 Temperature 98.2 F Pulse Rate 92 Respiratory Rate 18 Blood Pressure 137/82 Pulse Oximetry 93 96 94 Oxygen Delivery Nasal Cannula Nasal Cannula Oxygen Flow Rate 4 4 Fraction of Inspired Oxygen 36 02/08/25 08:00 02/08/25 12:00 02/08/25 12:00 Temperature 98.3 F Pulse Rate 95 94 93 Respiratory Rate 24 H Blood Pressure 144/85 H Pulse Oximetry 98 Oxygen Delivery Oxygen Flow Rate Fraction of Inspired Oxygen 02/08/25 14:55 02/08/25 15:10 02/08/25 15:11 Temperature 97.4 F L Pulse Rate 94 92 92 Respiratory Rate 22 H 18 24 H Blood Pressure 147/92 H Pulse Oximetry 92 90 Oxygen Delivery Oxygen Flow Rate Fraction of Inspired Oxygen 02/08/25 15:20 02/08/25 16:00 02/08/25 17:00 Temperature 97.4 F L Pulse Rate 90 93 94 Respiratory Rate 20 22 H Blood Pressure 147/92 H Pulse Oximetry 92 Oxygen Delivery Oxygen Flow Rate Fraction of Inspired Oxygen 02/08/25 20:00 02/08/25 20:00 02/08/25 20:19 Temperature Pulse Rate 95 Respiratory Rate Blood Pressure Pulse Oximetry 95 93 Oxygen Delivery High Flow Nasal Cannula High Flow Nasal Cannula Oxygen Flow Rate 10 10 Fraction of Inspired Oxygen 02/08/25 20:44 02/09/25 00:00 02/09/25 00:40 Temperature 98.0 F Pulse Rate 95 95 85 Respiratory Rate 18 20 Blood Pressure 160/90 H Pulse Oximetry 94 Oxygen Delivery Oxygen Flow Rate Fraction of Inspired Oxygen 02/09/25 00:47 02/09/25 04:17 02/09/25 04:24 Temperature Pulse Rate 88 92 95 Respiratory Rate 20 20 20 Blood Pressure Pulse Oximetry Oxygen Delivery Oxygen Flow Rate Fraction of Inspired Oxygen Intake/Output Intake/Output: Intake & Output 02/06/25 02/07/25 02/08/25 02/09/25 23:59 23:59 23:59 23:59 Intake Total 1300 1610 490 75.2 Output Total 871 682 1376 Balance 1200 1210 -610 75.2 Meds/Results Medications: Active Medications Generic Name Dose Route Start Last Admin Trade Name Freq PRN Reason Stop Dose Admin Acetaminophen 650 mg 02/06/25 15:03 Acetaminophen 325 Mg Tablet PO Q4H PRN Mild Pain (1-3) or Fever Albuterol/Ipratropium 3 ml 02/08/25 16:00 02/09/25 04:16 Ipratropium 0.5 Mg/Albuterol Sulfate 2.5 Mg Ampul.Neb 3 Ml INHALATION 3 ml Q4HRT YOMAIRA Administration Amlodipine Besylate 2.5 mg 02/08/25 09:00 02/08/25 09:26 Amlodipine Besylate 2.5 Mg Tablet PO 2.5 mg DAILY YOMAIRA Administration Benzonatate 100 mg 02/06/25 16:24 Benzonatate 100 Mg Capsule PO TID PRN Cough Dextrose 12.5 gm 02/06/25 15:03 Dextrose 50% 25 Gm/50 Ml Syringe IV PUSH PRN PRN Hypoglycemia Protocol Enoxaparin Sodium 40 mg 02/07/25 09:00 02/08/25 07:56 Enoxaparin 40 Mg/0.4 Ml Syringe SUB-Q Not Given On Hold: 02/08/25 11:15 DAILY YOMAIRA Glucagon 1 mg 02/06/25 15:03 Glucagon For Inj 1 Mg Vial IM PRN PRN Hypoglycemia Protocol Glucose 15 gm 02/06/25 15:03 Glucose Oral Gel 15 Gm Of Glucse In 37.5 Gm Tube PO PRN PRN Hypoglycemia Protocol Guaifenesin 1,200 mg 02/08/25 21:00 02/08/25 21:14 Guaifenesin 12 Hr 600 Mg Tabcr PO 1,200 mg Q12HR YOMAIRA Administration Heparin Sodium (Porcine) 3,500 units 02/08/25 18:05 Heparin Sodium 5,000 Units/Ml Vial IV PUSH PRN PRN aPTT 55 - 70 seconds Heparin Sodium (Porcine) 4,000 units 02/08/25 22:06 Heparin Sodium 5,000 Units/Ml Vial IV PUSH PRN PRN aPTT less than 55 seconds Hydralazine HCl 25 mg 02/07/25 17:12 Hydralazine Hcl 25 Mg Tablet PO Q8H PRN Hypertensive Emergency Azithromycin 500 mg/ Sodium 250 mls @ 250 mls/hr 02/07/25 13:00 02/08/25 14:21 Chloride IVPB 02/10/25 13:59 250 mls/hr Q24H YOMAIRA Administration Dextrose 1,000 mls @ 100 mls/hr 02/06/25 15:03 Dextrose 5% 1,000 Ml IVPB PRN PRN Hypoglycemia Protocol Cefepime HCl 2 gm/ Sodium 50 mls @ 100 mls/hr 02/08/25 11:05 02/08/25 22:00 Chloride IVPB Not Given Q12HR YOMAIRA Heparin Sodium/Dextrose 25,000 units in 250 mls @ 0 mls/hr 02/08/25 22:05 02/09/25 06:00 Heparin Sodium/D5w 100 Units/Ml IV CONT 0 units/hr On Hold: 02/09/25 07:23 .Q0M YOMAIRA 0 mls/hr Protocol Titration Insulin Aspart 2 - 5 units 02/06/25 17:00 02/08/25 16:24 Insulin Aspart (*Bkc) 100 Units/Ml SUB-Q Not Given TIDWM YOMAIRA Protocol Metronidazole 500 mg 02/08/25 14:00 02/09/25 05:55 Metronidazole 500 Mg Tablet PO 500 mg Q8HR YOMAIRA Administration Ondansetron HCl 4 mg 02/06/25 15:03 Ondansetron Inj 4 Mg/2 Ml Vial IV PUSH Q4H PRN Nausea Perflutren Lipid Microsphere 0 ml 02/06/25 16:24 Perflutren Lipid Microspheres 1.5 Ml Vial Diluted To 10 Ml Total Volume IV PUSH 02/09/25 16:25 ONCE PRN adequate visualization Protocol Vancomycin HCl 1 each 02/08/25 11:22 Vancomycin For Acute Kidney Injury IVPB PRN PRN Vancomycin Protocol Radiology Results: ITS Impressions Head CT 02/06/25 12:24 IMPRESSION: 1. No acute intracranial findings. Chest/Abdomen/Pelvis CTA 02/06/25 13:40 IMPRESSION: 1. No pulmonary embolism identified. 2. Moderate-sized bilateral pleural effusions. 3. Moderate-sized consolidations in the lower lobes and right middle lobe. Recommend follow-up to resolution. 4. Small to moderate size ground glass opacity scattered throughout both lungs most prominent in the upper lobes. Recommend follow-up to resolution. 5. Moderate-sized pericardial effusion. 6. Cholelithiasis. 7. Small amount of fluid and fat stranding scattered throughout the abdomen and pelvis for prominent in the right abdomen. 8. Concentric thickening of the cintron of the moderately distended bladder. Differential includes incomplete bladder wall distention, cystitis or sequelae from bladder outlet obstruction. 9. Moderate nonspecific anasarca. 10. Small bilateral fat-containing inguinal hernias, larger on the right which also contains fluid Renal Ultrasound 02/08/25 14:41 IMPRESSION: 1. No hydronephrosis. Thoracentesis Ultrasound 02/08/25 14:42 IMPRESSION: 1. Successful ultrasound-guided thoracentesis yielding 1100 mL of straw-colored fluid. Venous Doppler Study 02/08/25 17:10 IMPRESSION: 1. Deep venous thrombosis at the bilateral popliteal veins. Findings were discussed with Polo Gee, the nurse caring for the patient, at 5:18 PM. Labs Labs: Laboratory Results - last 24 hr 02/08/25 02/08/25 02/08/25 07:42 08:22 11:23 WBC RBC Hgb Hct MCV MCH MCHC RDW Plt Count MPV Immature Gran % (Auto) Neut % (Auto) Lymph % (Auto) [place] % (Auto) Eos % (Auto) Baso % (Auto) Lymph # (Auto) [place] # (Auto) Eos # (Auto) Baso # (Auto) Abs Immat Gran (auto) Absolute Neuts (auto) Absolute Nucleated RBC Band Neutrophils % Nucleated RBC % Platelet Estimate Large Platelets % Immature Plt Fraction Anisocytosis Macrocytosis Elia Cells Schistocytes PT 13.9 INR 1.1 APTT 27.8 Puncture Site ABG pH ABG pCO2 ABG pO2 ABG PO2/FiO2 Ratio ABG HCO3 ABG O2 Saturation ABG O2 Content ABG Base Excess A-a Gradient Oxyhemoglobin Total Hemoglobin O2 Delivery Device O2 Liters/Min FiO2 Sodium Potassium Chloride Carbon Dioxide Anion Gap BUN Creatinine Estim Creat Clear Calc Estimated GFR Glucose POC Capillary Glucose 191 H Lactic Acid Calcium Total Bilirubin AST ALT Alkaline Phosphatase Lactate Dehydrogenase C-Reactive Protein NT-Pro-B Natriuret Pep Total Protein Albumin Procalcitonin 0.1 Pleural Fluid Source Pleural Color Pleural Appearance Pleural pH Pleural RBC Pleural Nuc Cells Pleural Neutrophils Pleural Lymphocytes Pleural Macrophages Pleural Mesothelial 02/08/25 02/08/25 02/08/25 11:26 11:44 13:21 WBC RBC Hgb Hct MCV MCH MCHC RDW Plt Count MPV Immature Gran % (Auto) Neut % (Auto) Lymph % (Auto) [place] % (Auto) Eos % (Auto) Baso % (Auto) Lymph # (Auto) [place] # (Auto) Eos # (Auto) Baso # (Auto) Abs Immat Gran (auto) Absolute Neuts (auto) Absolute Nucleated RBC Band Neutrophils % Nucleated RBC % Platelet Estimate Large Platelets % Immature Plt Fraction Anisocytosis Macrocytosis Reese Cells Schistocytes PT INR APTT Puncture Site ABG pH ABG pCO2 ABG pO2 ABG PO2/FiO2 Ratio ABG HCO3 ABG O2 Saturation ABG O2 Content ABG Base Excess A-a Gradient Oxyhemoglobin Total Hemoglobin O2 Delivery Device O2 Liters/Min FiO2 Sodium Potassium Chloride Carbon Dioxide Anion Gap BUN Creatinine 2.57 H Estim Creat Clear Calc 28 Estimated GFR 25 L Glucose POC Capillary Glucose 172 H Lactic Acid Calcium Total Bilirubin AST ALT Alkaline Phosphatase Lactate Dehydrogenase C-Reactive Protein 0.9 NT-Pro-B Natriuret Pep 09465 H Total Protein Albumin Procalcitonin Pleural Fluid Source Pleural fluid Pleural Color Yellow Pleural Appearance Hazy Pleural pH 7.444 Pleural RBC < 2000 Pleural Nuc Cells 114 Pleural Neutrophils 15 Pleural Lymphocytes 45 Pleural Macrophages 38 Pleural Mesothelial 2 02/08/25 02/08/25 02/08/25 14:25 16:17 19:05 WBC 7.6 RBC 4.45 L Hgb 11.9 L Hct 39.6 L MCV 89.0 MCH 26.7 MCHC 30.1 L RDW 14.9 H Plt Count 141 L MPV 11.8 H Immature Gran % (Auto) 0.7 H Neut % (Auto) 94.1 H Lymph % (Auto) 3.9 L [place] % (Auto) 1.2 L Eos % (Auto) 0.0 Baso % (Auto) 0.1 L Lymph # (Auto) 0.30 L [place] # (Auto) 0.1 Eos # (Auto) 0.0 Baso # (Auto) 0.0 Abs Immat Gran (auto) 0.05 H Absolute Neuts (auto) 7.2 H Absolute Nucleated RBC 0.000 Band Neutrophils % Not Reportable Nucleated RBC % 0.0 Platelet Estimate Slightly decreased Large Platelets Present % Immature Plt Fraction 10.1 Anisocytosis 1+ Macrocytosis Occasional Elia Cells 1+ Schistocytes None seen PT 13.4 INR 1.0 APTT 21.7 L Puncture Site Right brachial ABG pH 7.297 L* ABG pCO2 53.2 H ABG pO2 64.4 L ABG PO2/FiO2 Ratio 2.15 ABG HCO3 25.4 ABG O2 Saturation 90.1 L ABG O2 Content 15.4 L ABG Base Excess -1.6 A-a Gradient 87.0 Oxyhemoglobin 88.7 L Total Hemoglobin 12.3 O2 Delivery Device Venturi mask O2 Liters/Min 6.0 FiO2 30 Sodium Potassium Chloride Carbon Dioxide Anion Gap BUN Creatinine Estim Creat Clear Calc Estimated GFR Glucose POC Capillary Glucose 184 H Lactic Acid Calcium Total Bilirubin AST ALT Alkaline Phosphatase Lactate Dehydrogenase C-Reactive Protein NT-Pro-B Natriuret Pep Total Protein Albumin Procalcitonin Pleural Fluid Source Pleural Color Pleural Appearance Pleural pH Pleural RBC Pleural Nuc Cells Pleural Neutrophils Pleural Lymphocytes Pleural Macrophages Pleural Mesothelial 02/09/25 02/09/25 02/09/25 05:48 06:34 06:34 WBC 6.5 RBC 4.41 L Hgb 11.9 L Hct 39.2 L MCV 88.9 MCH 27.0 MCHC 30.4 L RDW 14.8 H Plt Count 148 L MPV 11.9 H Immature Gran % (Auto) 0.5 Neut % (Auto) 83.7 H Lymph % (Auto) 8.9 L [place] % (Auto) 6.7 Eos % (Auto) 0.0 Baso % (Auto) 0.2 Lymph # (Auto) 0.58 L [place] # (Auto) 0.4 Eos # (Auto) 0.0 Baso # (Auto) 0.0 Abs Immat Gran (auto) 0.03 Absolute Neuts (auto) 5.5 Absolute Nucleated RBC 0.000 Band Neutrophils % Nucleated RBC % 0.0 Platelet Estimate Large Platelets % Immature Plt Fraction Anisocytosis Macrocytosis Reese Cells Schistocytes PT INR APTT 35.4 Puncture Site Left radial ABG pH 7.246 L* ABG pCO2 55.0 H ABG pO2 62.2 L ABG PO2/FiO2 Ratio 1.04 ABG HCO3 23.4 ABG O2 Saturation 87.6 L* ABG O2 Content 15.5 L ABG Base Excess -4.4 A-a Gradient 305.1 Oxyhemoglobin 89.4 L Total Hemoglobin 12.3 O2 Delivery Device High flow nasal radha O2 Liters/Min 10.0 FiO2 60 Sodium 136 L 136 L Potassium 4.9 Chloride Carbon Dioxide Anion Gap BUN Creatinine Estim Creat Clear Calc Estimated GFR Glucose POC Capillary Glucose Lactic Acid Calcium Total Bilirubin AST ALT Alkaline Phosphatase Lactate Dehydrogenase C-Reactive Protein NT-Pro-B Natriuret Pep Total Protein Albumin Procalcitonin Pleural Fluid Source Pleural Color Pleural Appearance Pleural pH Pleural RBC Pleural Nuc Cells Pleural Neutrophils Pleural Lymphocytes Pleural Macrophages Pleural Mesothelial 02/09/25 02/09/25 02/09/25 06:34 06:34 06:34 WBC RBC Hgb Hct MCV MCH MCHC RDW Plt Count MPV Immature Gran % (Auto) Neut % (Auto) Lymph % (Auto) [place] % (Auto) Eos % (Auto) Baso % (Auto) Lymph # (Auto) [place] # (Auto) Eos # (Auto) Baso # (Auto) Abs Immat Gran (auto) Absolute Neuts (auto) Absolute Nucleated RBC Band Neutrophils % Nucleated RBC % Platelet Estimate Large Platelets % Immature Plt Fraction Anisocytosis Macrocytosis Reese Cells Schistocytes PT INR APTT Puncture Site ABG pH ABG pCO2 ABG pO2 ABG PO2/FiO2 Ratio ABG HCO3 ABG O2 Saturation ABG O2 Content ABG Base Excess A-a Gradient Oxyhemoglobin Total Hemoglobin O2 Delivery Device O2 Liters/Min FiO2 Sodium Potassium 5.0 Chloride 101 100 Carbon Dioxide 26 27 Anion Gap 9 BUN Creatinine Estim Creat Clear Calc Estimated GFR Glucose POC Capillary Glucose Lactic Acid Calcium Total Bilirubin AST ALT Alkaline Phosphatase Lactate Dehydrogenase C-Reactive Protein NT-Pro-B Natriuret Pep Total Protein Albumin Procalcitonin Pleural Fluid Source Pleural Color Pleural Appearance Pleural pH Pleural RBC Pleural Nuc Cells Pleural Neutrophils Pleural Lymphocytes Pleural Macrophages Pleural Mesothelial 02/09/25 02/09/25 02/09/25 06:34 06:34 06:34 WBC RBC Hgb Hct MCV MCH MCHC RDW Plt Count MPV Immature Gran % (Auto) Neut % (Auto) Lymph % (Auto) [place] % (Auto) Eos % (Auto) Baso % (Auto) Lymph # (Auto) [place] # (Auto) Eos # (Auto) Baso # (Auto) Abs Immat Gran (auto) Absolute Neuts (auto) Absolute Nucleated RBC Band Neutrophils % Nucleated RBC % Platelet Estimate Large Platelets % Immature Plt Fraction Anisocytosis Macrocytosis [place] Cells Schistocytes PT INR APTT Puncture Site ABG pH ABG pCO2 ABG pO2 ABG PO2/FiO2 Ratio ABG HCO3 ABG O2 Saturation ABG O2 Content ABG Base Excess A-a Gradient Oxyhemoglobin Total Hemoglobin O2 Delivery Device O2 Liters/Min FiO2 Sodium Potassium Chloride Carbon Dioxide Anion Gap 9 BUN 67 H D 64 H Creatinine 3.01 H 3.14 H Estim Creat Clear Calc 24 Estimated GFR Glucose POC Capillary Glucose Lactic Acid Calcium Total Bilirubin AST ALT Alkaline Phosphatase Lactate Dehydrogenase C-Reactive Protein NT-Pro-B Natriuret Pep Total Protein Albumin Procalcitonin Pleural Fluid Source Pleural Color Pleural Appearance Pleural pH Pleural RBC Pleural Nuc Cells Pleural Neutrophils Pleural Lymphocytes Pleural Macrophages Pleural Mesothelial 02/09/25 02/09/25 02/09/25 06:34 06:34 06:34 WBC RBC Hgb Hct MCV MCH MCHC RDW Plt Count MPV Immature Gran % (Auto) Neut % (Auto) Lymph % (Auto) [place] % (Auto) Eos % (Auto) Baso % (Auto) Lymph # (Auto) [place] # (Auto) Eos # (Auto) Baso # (Auto) Abs Immat Gran (auto) Absolute Neuts (auto) Absolute Nucleated RBC Band Neutrophils % Nucleated RBC % Platelet Estimate Large Platelets % Immature Plt Fraction Anisocytosis Macrocytosis [place]ese Cells Schistocytes PT INR APTT Puncture Site ABG pH ABG pCO2 ABG pO2 ABG PO2/FiO2 Ratio ABG HCO3 ABG O2 Saturation ABG O2 Content ABG Base Excess A-a Gradient Oxyhemoglobin Total Hemoglobin O2 Delivery Device O2 Liters/Min FiO2 Sodium Potassium Chloride Carbon Dioxide Anion Gap BUN Creatinine Estim Creat Clear Calc 23 Estimated GFR 21 L 20 L Glucose 212 H 215 H POC Capillary Glucose Lactic Acid 1.0 Calcium 8.0 L Total Bilirubin AST ALT Alkaline Phosphatase Lactate Dehydrogenase C-Reactive Protein NT-Pro-B Natriuret Pep Total Protein Albumin Procalcitonin Pleural Fluid Source Pleural Color Pleural Appearance Pleural pH Pleural RBC Pleural Nuc Cells Pleural Neutrophils Pleural Lymphocytes Pleural Macrophages Pleural Mesothelial 02/09/25 02/09/25 06:34 06:34 WBC RBC Hgb Hct MCV MCH MCHC RDW Plt Count MPV Immature Gran % (Auto) Neut % (Auto) Lymph % (Auto) [place] % (Auto) Eos % (Auto) Baso % (Auto) Lymph # (Auto) [place] # (Auto) Eos # (Auto) Baso # (Auto) Abs Immat Gran (auto) Absolute Neuts (auto) Absolute Nucleated RBC Band Neutrophils % Nucleated RBC % Platelet Estimate Large Platelets % Immature Plt Fraction Anisocytosis Macrocytosis Reese Cells Schistocytes PT INR APTT Puncture Site ABG pH ABG pCO2 ABG pO2 ABG PO2/FiO2 Ratio ABG HCO3 ABG O2 Saturation ABG O2 Content ABG Base Excess A-a Gradient Oxyhemoglobin Total Hemoglobin O2 Delivery Device O2 Liters/Min FiO2 Sodium Potassium Chloride Carbon Dioxide Anion Gap BUN Creatinine Estim Creat Clear Calc Estimated GFR Glucose POC Capillary Glucose Lactic Acid Calcium 8.3 L Total Bilirubin 0.3 AST 23 ALT 19 Alkaline Phosphatase 120 Lactate Dehydrogenase 187 C-Reactive Protein NT-Pro-B Natriuret Pep Total Protein 6.8 6.8 Albumin 3.3 L Procalcitonin Pleural Fluid Source Pleural Color Pleural Appearance Pleural pH Pleural RBC Pleural Nuc Cells Pleural Neutrophils Pleural Lymphocytes Pleural Macrophages Pleural Mesothelial Quality VTE Prophylaxis VTE prophylaxis: pharmacologic ordered Hospitalist MIPS Advance Care Plan I have confirmed that the patient's Advanced Care Plan is present, code status is documented, or surrogate decision maker is listed in patient medical record.: Yes Medication Reconciliation I have utilized all available resources to obtain, update and review the patients current medications (includes all prescriptions, OTC, herbals, cannabis, and nutritional supplements).: Yes
[2025-02-09 07:24] LABS: Free T4 Free Thyroxine 1.16 ng/dL (0.78-2.19)
[2025-02-09 07:51] LABS: Thyroid Stimulating Hormone 1.160 uIU/mL (0.465-4.680)
[2025-02-09] MEDS: CEFEPIME 2 GM in SODIUM CHLORIDE 0.9% IV 50 ML 100 ML IVPB (08:12)
[2025-02-09] MEDS: guaiFENesin 12 HR 600 MG TABCR 1200 MG PO ×2 (08:12→20:21)
[2025-02-09 09:34] LABS: INR 1.0; Prothrombin Time 13.6 Seconds (11.1-14.7)
[2025-02-09 09:35] LABS: Partial Thromboplastin Time 26.8 Seconds (22.3-36.8)
--- NOTE | 2025-02-09 09:38 | PM.PNPUL ---
Progress Note: A&P Assessment and Plan (1) Pleural effusion: Code(s): J90 - Pleural effusion, not elsewhere classified Status: Acute Assessment and Plan: Patient presents with shortness of breath, large free flowing bilateral pleural effusions, anasarca, afebrile, white blood cell count 5.6, BNP 51993, procalcitonin 0.1, acute on chronic hypercarbic and hypoxemic respiratory failure, CT angiogram of the chest with large bilateral pleural effusions and adjacent compressive atelectasis. subsequent echocardiogram shows LVEF 45-50% with grade 2 diastolic dysfunction. Etiology of bilateral pleural effusions includes: Fluid overload from CHF, and possible pneumonia. 02/08/25: 02/08/2025: The patient has just completed his right thoracentesis with 1100 mL of straw-colored fluid. He notices no difference in his breathing. He states that his cough is the same his presentation and his phlegm is now thick. Creatinine 2.57. He is afebrile. Patient is currently on 6 L Venti mask with saturations 94%. ABG is 7.30/53/64. Weight today is 81.4 kg. Patient's antibiotics were changed to vancomycin, cefepime and Flagyl for worsening oxygenation and lethargy. The patient tells me he could not tolerate the pressures on BiPAP and I placed him on a noninvasive ventilator with the AVAPS mode and adjusted the settings to comfort resulting in a rate of 14, tidal volume 500, EPAP 5, minimal inspiratory pressure 6, maximal inspiratory pressure 25, inspiratory time 1.2, rise of 5 which is the slowest and 36% FiO2. Saturations were 98%. Patient had 1100 mL of straw colored fluid. pH is 7.44. Nucleated cells 114 with a differential of neutrophils 15, lymphocytes 45, macrophages 38, mesothelial cells 2. Remainder of chemistries, micro and cytology pending plan: Agree with thoracentesis to assess for transudate versus exudate. Patient had 1100 mL of straw colored fluid. pH is 7.44. Nucleated cells 114 with a differential of neutrophils 15, lymphocytes 45, macrophages 38, mesothelial cells 2. Full set of chemistries, cell count, microbiology, and cytology to be sent. Chest x-ray with improved but persistent right pleural effusion and large left pleural effusion. Patient has acute kidney injury and I think it will be difficult to aggressively diurese him as we are holding Lasix. Will perform left thoracentesis on 11/09/2024. I think it is unlikely that this is bacterial pneumonia. Patient was treated with ceftriaxone and azithromycin on from 02/06 through 02/08 and on 02/08 he was changed to vancomycin, cefepime and Flagyl. Will continue today. Blood cultures are negative, COVID influenza RSV RT PCR assay negative, MRSA swab pending. I have ordered respiratory pathogen panel, urine for Legionella, urine for pneumococcal and serum mycoplasma IgM. patient with worsening GERONIMO and will discontinue Lasix at this time. 02/09/2025: Overall the patient tells me he is slowly improving. He has 50% back to his normal. He has rest shortness of breath. He has a increased cough compared to baseline with a little bit of phlegm and no hemoptysis. He is afebrile. When I enter the room he was on 4 L nasal cannula saturations 95%. I decreased him to 2 L nasal cannula saturations were 94%. White blood cell count 6.5, creatinine 3.14, BUN 64, bicarbonate 27. Yesterday he diuresed 610 mL. Cumulative he is positive 1.8 L since admission. His weight is 79.9 kg today. Chest x-ray this morning shows some increased right pleural effusion compared with post thoracentesis x-ray, large left pleural effusion. Plan: patient remains with large left pleural effusion and acute kidney injury limiting diuresis. Agree with left thoracentesis today. I think it is unlikely that this is bacterial pneumonia. Patient was treated with ceftriaxone and azithromycin on from 02/06 through 02/08 and on 02/08 he was changed to vancomycin, cefepime and Flagyl. Will discontinue flagyl today. Continue vancomycin and cefepime pending his left thoracentesis. If this does not look like an empyema then can deescalate to cover his Serratia in his urine. Patient has refused MRSA nasal swab. Blood cultures are negative, COVID influenza RSV RT PCR assay negative. I have ordered respiratory pathogen panel (patient refused swab), urine for Legionella, urine for pneumococcal and serum mycoplasma IgM pending. Discussed with Lindsey Whitley, will follow with you. (2) Acute on chronic respiratory failure with hypoxia and hypercapnia: Code(s): J96.21 - Acute and chronic respiratory failure with hypoxia; J96.22 - Acute and chronic respiratory failure with hypercapnia Status: Acute Assessment and Plan: Patient reportedly is not on any home oxygen. ABG on presentation on 3 L nasal cannula the pH of 7.31/64/73. He was initially placed on BiPAP but only tolerated this for 1 hour. 02/08/2025: Patient is currently on 6 L Venti mask with saturations 94%. ABG is 7.30/53/64. The patient tells me he could not tolerate the pressures on BiPAP and I placed him on a noninvasive ventilator with the AVAPS mode and adjusted the settings to comfort resulting in a rate of 14, tidal volume 500, EPAP 5, minimal inspiratory pressure 6, maximal inspiratory pressure 25, inspiratory time 1.2, rise of 5 which is the slowest and 36% FiO2. Saturations were 98%. plan: Will continue noninvasive ventilation with the AVAPS mode p.r.n. during the day and at night. I will check an ABG prior to removal in the morning. Will treat patient for fluid overload and possible pneumonia and once these issues are resolved will reassess for chronic hypercarbic respiratory failure. Goal saturation 90-94%. Adjust oxygen accordingly. Patient is do not resuscitate, do not intubate. 02/09/25: patient could only tolerate the hospital noninvasive ventilator with the settings titrated to comfort as above for 5 minutes last night and said he could not wear it. He said the machine was not breathing naturally for him and he would not be able to wear a machine like that at home. Patient had an ABG on 10 L nasal cannula at the end of the night with pH of 7.25/55/62. Plan: Patient states he cannot tolerate noninvasive ventilation and will not wear this at home. Will perform overnight oximetry on 2 L tonight. (3) Tobacco dependence: Code(s): F17.200 - Nicotine dependence, unspecified, uncomplicated Status: Acute Assessment and Plan: Patient with 58 pack year tobacco use, currently smoking. He has no known diagnosis of COPD. There is no bullous emphysema on his CT scan of the chest on 02/06/2025. I have no PFTs. He did complain of wheezing at home. He had a change in his phlegm. He says that his phlegm is thick and difficult to expectorate. 02/08/2025: Patient has no wheezing today. He has received 3 days of prednisone 40 mg a day and will discontinue. I will increase the frequency of his nebulizers from q.6 hours to q.4 hours. I will increase his guaifenesin from 600 p.o. b.i.d. to 1200 p.o. b.i.d.. I will send an alpha 1 anti trypsin genotype and level on 02/09/2025. 02/09/25: Patient has no wheezes today. States his breathing is slowly improving. Plan: Continue DuoNebs q.4 hours and guaifenesin 1200 p.o. b.i.d.. Continue Cornet flutter valve. Alpha 1 anti trypsin level pending. Subjective Date/time seen: 02/09/25 09:38 Interval history: 02/08/2025: This is a new pulmonary consult for pleural effusions and pneumonia. 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 Patient tells me he has no formal diagnosis of COPD. Patient smoked tobacco since age 11 to current at 1 pack per day for a total of 58 pack years. He was exposed to secondhand smoke currently. 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 He denies sand blasting, welding, professional painting, steel portable feed mill operator, [employer] work or coal mining. Since his right BKA on 11/11/2022 he does minimal walking. He does have bilateral lower extremity prosthesis but he says he just has difficulty walking with both of these. 02/06/2025: Patient presented to the emergency department with 2-3 weeks of weakness, 1 week history of shortness of breath, cough and 1-2 days of confusion. In the emergency department his blood pressure is 170/94, heart rate 103, respirations 19, on 3 L nasal cannula saturations 96%. He had decreased breath sounds bilaterally. White blood cell count 5.6, creatinine 1.52, BUN 34, bicarbonate 30, BNP 67404, procalcitonin 0.1, D-dimer 0.96. 3 L ABG 7.31/64/ 73. COVID influenza RSV RT PCR assay negative, UA with white blood cell count 51-100, no bacteria. CT angiogram of the chest showed no PE, large right greater than left pleural effusions with adjacent compressive atelectasis, anasarca. Patient was treated for fluid overload, pneumonia and COPD exacerbation with IV Lasix, ceftriaxone and azithromycin and prednisone and DuoNebs. He was placed on BiPAP but only use this for approximately 1 hour and then refused. 02/07/2025: Patient was HIV negative, white blood cell count 6.2, creatinine 1.61, echocardiogram with LVEF 45-50%, grade 2 diastolic dysfunction, normal right ventricular size, normal right atrial size, no PASP calculated. Trivial pericardial effusion. Saturations on 4 L nasal cannula 89-95%. 02/08/2025: The patient has just completed his right thoracentesis with 1100 mL of straw-colored fluid. He notices no difference in his breathing. He states that his cough is the same his presentation and his phlegm is now thick. Creatinine 2.57. He is afebrile. Patient is currently on 6 L Venti mask with saturations 94%. ABG is 7.30/53/64. Weight today is 81.4 kg. Patient's antibiotics were changed to vancomycin, cefepime and Flagyl for worsening oxygenation and lethargy. The patient tells me he could not tolerate the pressures on BiPAP and I placed him on a noninvasive ventilator with the AVAPS mode and adjusted the settings to comfort resulting in a rate of 14, tidal volume 500, EPAP 5, minimal inspiratory pressure 6, maximal inspiratory pressure 25, inspiratory time 1.2, rise of 5 which is the slowest and 36% FiO2. Saturations were 98%. He said this was as comfortable as the machine could be and he would try to wear this later tonight. Later in the day patient had a right thoracentesis: had 1100 mL of straw colored fluid. pH is 7.44. Nucleated cells 114 with a differential of neutrophils 15, lymphocytes 45, macrophages 38, mesothelial cells 2. Full set of chemistries, cell count, microbiology, and cytology to be sent. Chest x-ray with improved but persistent right pleural effusion and large left pleural effusion. 02/09/2025: Overall the patient tells me he is slowly improving. He has 50% back to his normal. He has rest shortness of breath. He has a increased cough compared to baseline with a little bit of phlegm and no hemoptysis. He is afebrile. When I enter the room he was on 4 L nasal cannula saturations 95%. I decreased him to 2 L nasal cannula saturations were 94%. White blood cell count 6.5, creatinine 3.14, BUN 64, bicarbonate 27. Yesterday he diuresed 610 mL. Cumulative he is positive 1.8 L since admission. His weight is 79.9 kg today. Chest x-ray this morning shows some increased right pleural effusion compared with post thoracentesis x-ray, large left pleural effusion. patient could only tolerate the hospital noninvasive ventilator with the settings titrated to comfort as above for 5 minutes last night and said he could not wear it. He said the machine was not breathing naturally for him and he would not be able to wear a machine like that at home. Patient had an ABG on 10 L nasal cannula at the end of the night with pH of 7.25/55/62. 02/07/25: Echo Summary 1. Complete two-dimensional, color flow and Doppler transthoracic echocardiogram is performed. 2. Concentric left ventricular hypertrophy with mild systolic dysfunction, inferior/posterior hypokinesia. 3. Grade 2 diastolic noncompliance. 4. Mild mitral regurgitation. 5. Mildly enlarged ascending aorta, 4.2 cm. 6. Trivial posterior pericardial effusion. Right Ventricle Right ventricular chamber dimension is normal. Right Atria Right atrial chamber dimension is normal. 02/06/25: Exam: CT chest with contrast Clinical History: [Hypoxia. ] Comparison: [ ] Technique: Multiple axial CT images of the chest, abdomen and pelvis with IV contrast. Sagittal and coronal reformatted images were obtained. FINDINGS: Lungs and pleura: [ Moderate-sized bilateral pleural effusions.] No pulmonary embolism identified. No pneumothorax. Moderate-sized consolidations in the lower lobes and right middle lobe. Small to moderate size ground glass opacity scattered throughout both lungs most prominent in the upper lobes. Mediastinum and pulmonary steffany: [ No mass or adenopathy.] Axillary/intramammary and supraclavicular: [ No mass or adenopathy.] Heart and great vessels: [ Normal heart size.[ [ Moderate-sized pericardial effusion.] [ No aneurysm.] Chest Wall: [ Unremarkable.] Liver: [ No mass.] [ No intrahepatic biliary duct dilatation.] Gallbladder: [Cholelithiasis.No wall thickening.] Common bile duct: [ Normal caliber.] [ No stones.] Spleen: [ The spleen is not enlarged. Spleen is slightly heterogeneous. Pancreas: [ No mass. No pancreatic fluid collection.] Adrenals: [ No masses.] Kidneys: [ No masses. No hydronephrosis.][ There are a few too small to characterize low-attenuation lesions in the kidneys. There is a 2 cm cyst in the left kidney.] There are a few tiny nonobstructing renal stones. Lymph nodes: [ No adenopathy in the abdomen or pelvis.] Stomach, small bowel and colon: [ No bowel wall thickening or obstruction.] Peritoneum cavity: Small amount of fluid and fat stranding scattered throughout the abdomen and pelvis for prominent in the right abdomen. Bladder: Concentric thickening of the cintron of the moderately distended bladder. Differential includes incomplete bladder wall distention, cystitis or sequelae from bladder outlet obstruction. Prostate gland is mildly enlarged and partially calcified. Osseous structures: [ No acute fracture or destructive lesion.] [ Multilevel degenerative change in the visualized spine.] Abdominal aorta: [ No aneurysm.] Additional findings: Moderate nonspecific anasarca. Small bilateral fat-containing inguinal hernias, larger on the right which also contains fluid. IMPRESSION: 1. No pulmonary embolism identified. 2. Moderate-sized bilateral pleural effusions. 3. Moderate-sized consolidations in the lower lobes and right middle lobe. Recommend follow-up to resolution. 4. Small to moderate size ground glass opacity scattered throughout both lungs most prominent in the upper lobes. Recommend follow-up to resolution. 5. Moderate-sized pericardial effusion. 6. Cholelithiasis. 7. Small amount of fluid and fat stranding scattered throughout the abdomen and pelvis for prominent in the right abdomen. 8. Concentric thickening of the cintron of the moderately distended bladder. Differential includes incomplete bladder wall distention, cystitis or sequelae from bladder outlet obstruction. 9. Moderate nonspecific anasarca. 10. Small bilateral fat-containing inguinal hernias, larger on the right which also contains fluid 06/10/2020 EXAMINATION: XR chest 2V INDICATION: Chest pain TECHNIQUE: AP and lateral views of the chest are obtained. COMPARISON: 06/18/2019 FINDINGS: The lungs are free of acute opacities. There is no pleural effusion or pneumothorax. The cardiomediastinal silhouette is normal. There is moderate thoracic spondylosis. IMPRESSION: 1. No acute cardiopulmonary abnormality. Review of Systems Constitutional: Constitutional: Reports no additional constitutional complaints Eyes: Eyes: Reports no additional eye complaints ENT: Reports system reviewed and no additional complaints, except as documented Cardiovascular: Cardiovascular: Reports no additional cardiovascular complaints Respiratory: Respiratory: Reports no additional respiratory complaints Gastrointestinal: Gastrointestinal: Reports no additional gastrointestinal complaints Musculoskeletal: Musculoskeletal: Reports no additional musculoskeletal complaints Neurologic: Reports system reviewed and no additional complaints, except as documented Psychiatric: Psychiatric: Reports no additional psychiatric complaints Endocrine: Endocrine: Reports no additional endocrine complaints Hematologic/Lymphatic: Hematologic/Lymphatic: Reports no additional hematologic/lymphatic complaints Allergic/Immunologic: Allergic/Immunologic: Reports no additional allergic/immunologic complaints Exam Const: General: cooperative, healthy appearing and comfortable Orientation/consciousness: oriented to person, oriented to place and oriented to time Other: A&O x3. HENMT: Head: normal to inspection Ears: hearing grossly normal bilaterally Eyes: General: appearance normal, both eyes and all related structures Neck: Neck: normal visual inspection Chest: Chest palpation & inspection: normal inspection of the chest Resp: Effort & Inspection: normal respiratory effort and able to speak in complete sentences Auscultation: no crackles, no rales, no rhonchi, no wheezes and diminished lung sounds Other: Decreased breath sounds bilaterally left greater than right, no wheezing. Cardio: Jugular venous distension: no JVD GI: Inspection: normal to inspection Skin: General skin exam: normal color Neuro: General: oriented to person, oriented to place and oriented to time Extrem: General: normal to inspection Other: Bilateral BKA a days. No thigh edema Psych: Appearance: grossly normal Objective Data Vital Signs Vital Signs: Vital Signs - 24 hr 02/08/25 12:00 02/08/25 12:02/08/25 14:55 Temperature 36.8 C 36.3 C L Pulse Rate 94 93 94 Respiratory Rate 24 H 22 H Blood Pressure 144/85 H 147/92 H Pulse Oximetry 98 92 Oxygen Delivery Oxygen Flow Rate Fraction of Inspired Oxygen 02/08/25 15:10 02/08/25 15:11 02/08/25 15:20 Temperature Pulse Rate 92 92 90 Respiratory Rate 18 24 H 20 Blood Pressure Pulse Oximetry 90 Oxygen Delivery Oxygen Flow Rate Fraction of Inspired Oxygen 02/08/25 16:00 02/08/25 17:00 02/08/25 20:00 Temperature 36.3 C L Pulse Rate 93 94 Respiratory Rate 22 H Blood Pressure 147/92 H Pulse Oximetry 92 95 Oxygen Delivery High Flow Nasal Cannula Oxygen Flow Rate 10 Fraction of Inspired Oxygen 02/08/25 20:00 02/08/25 20:19 02/08/25 20:44 Temperature 36.7 C Pulse Rate 95 95 Respiratory Rate 18 Blood Pressure 160/90 H Pulse Oximetry 93 94 Oxygen Delivery High Flow Nasal Cannula Oxygen Flow Rate 10 Fraction of Inspired Oxygen 02/09/25 00:00 02/09/25 00:40 02/09/25 00:47 Temperature Pulse Rate 95 85 88 Respiratory Rate 20 20 Blood Pressure Pulse Oximetry Oxygen Delivery Oxygen Flow Rate Fraction of Inspired Oxygen 02/09/25 04:17 02/09/25 04:24 02/09/25 08:00 Temperature Pulse Rate 92 95 Respiratory Rate 20 20 Blood Pressure Pulse Oximetry 94 Oxygen Delivery High Flow Nasal Cannula Oxygen Flow Rate 10 Fraction of Inspired Oxygen 36 02/09/25 08:03 02/09/25 08:08 02/09/25 08:09 Temperature 36.4 C L Pulse Rate 93 94 Respiratory Rate 22 H 20 Blood Pressure 141/84 H Pulse Oximetry 97 93 Oxygen Delivery High Flow Nasal Cannula Oxygen Flow Rate 10 Fraction of Inspired Oxygen 02/09/25 08:15 Temperature Pulse Rate 98 Respiratory Rate 16 Blood Pressure Pulse Oximetry Oxygen Delivery Oxygen Flow Rate Fraction of Inspired Oxygen Intake/Output Intake/Output: Intake & Output 02/06/25 02/07/25 02/08/25 02/09/25 23:59 23:59 23:59 23:59 Intake Total 1300 1610 490 75.2 Output Total 856 540 0238 Balance 1200 1210 -610 75.2 Meds/Results Medications: Active Medications Generic Name Dose Route Start Last Admin Trade Name Freq PRN Reason Stop Dose Admin Acetaminophen 650 mg 02/06/25 15:03 Acetaminophen 325 Mg Tablet PO Q4H PRN Mild Pain (1-3) or Fever Albuterol/Ipratropium 3 ml 02/08/25 16:00 02/09/25 08:07 Ipratropium 0.5 Mg/Albuterol Sulfate 2.5 Mg Ampul.Neb 3 Ml INHALATION 3 ml Q4HRT OMI Administration Amlodipine Besylate 5 mg 02/09/25 09:15 Amlodipine Besylate 5 Mg Tablet PO DAILY OMI Benzonatate 100 mg 02/06/25 16:24 Benzonatate 100 Mg Capsule PO TID PRN Cough Dextrose 12.5 gm 02/06/25 15:03 Dextrose 50% 25 Gm/50 Ml Syringe IV PUSH PRN PRN Hypoglycemia Protocol Enoxaparin Sodium 40 mg 02/07/25 09:00 02/08/25 07:56 Enoxaparin 40 Mg/0.4 Ml Syringe SUB-Q Not Given On Hold: 02/08/25 11:15 DAILY OMI Glucagon 1 mg 02/06/25 15:03 Glucagon For Inj 1 Mg Vial IM PRN PRN Hypoglycemia Protocol Glucose 15 gm 02/06/25 15:03 Glucose Oral Gel 15 Gm Of Glucse In 37.5 Gm Tube PO PRN PRN Hypoglycemia Protocol Guaifenesin 1,200 mg 02/08/25 21:00 02/09/25 08:12 Guaifenesin 12 Hr 600 Mg Tabcr PO 1,200 mg Q12HR OMI Administration Heparin Sodium (Porcine) 3,500 units 02/08/25 18:05 Heparin Sodium 5,000 Units/Ml Vial IV PUSH PRN PRN aPTT 55 - 70 seconds Heparin Sodium (Porcine) 4,000 units 02/08/25 22:06 Heparin Sodium 5,000 Units/Ml Vial IV PUSH PRN PRN aPTT less than 55 seconds Hydralazine HCl 25 mg 02/07/25 17:12 Hydralazine Hcl 25 Mg Tablet PO Q8H PRN Hypertensive Emergency Azithromycin 500 mg/ Sodium 250 mls @ 250 mls/hr 02/07/25 13:00 02/08/25 14:21 Chloride IVPB 02/10/25 13:59 250 mls/hr Q24H OMI Administration Dextrose 1,000 mls @ 100 mls/hr 02/06/25 15:03 Dextrose 5% 1,000 Ml IVPB PRN PRN Hypoglycemia Protocol Heparin Sodium/Dextrose 25,000 units in 250 mls @ 0 mls/hr 02/08/25 22:05 02/09/25 06:00 Heparin Sodium/D5w 100 Units/Ml IV CONT 0 units/hr On Hold: 02/09/25 07:23 .Q0M OMI 0 mls/hr Protocol Titration Cefepime HCl 2 gm/ Sodium 50 mls @ 100 mls/hr 02/10/25 09:00 Chloride IVPB Q24H [facility] Insulin Aspart 2 - 5 units 02/06/25 17:00 02/09/25 08:02 Insulin Aspart (*Bkc) 100 Units/Ml SUB-Q Not Given TIDWM [facility] Protocol Insulin Aspart 2 units 02/09/25 12:00 Insulin Aspart (*Bkc) 100 Units/Ml SUB-Q TIDWM [facility] Metronidazole 500 mg 02/08/25 14:00 02/09/25 05:55 Metronidazole 500 Mg Tablet PO 500 mg Q8HR OMI Administration Ondansetron HCl 4 mg 02/06/25 15:03 Ondansetron Inj 4 Mg/2 Ml Vial IV PUSH Q4H PRN Nausea Perflutren Lipid Microsphere 0 ml 02/06/25 16:24 Perflutren Lipid Microspheres 1.5 Ml Vial Diluted To 10 Ml Total Volume IV PUSH 02/09/25 16:25 ONCE PRN adequate visualization Protocol Vancomycin HCl 1 each 02/08/25 11:22 Vancomycin For Acute Kidney Injury IVPB PRN PRN Vancomycin Protocol Radiology Results: ITS Impressions Head CT 02/06/25 12:24 IMPRESSION: 1. No acute intracranial findings. Chest/Abdomen/Pelvis CTA 02/06/25 13:40 IMPRESSION: 1. No pulmonary embolism identified. 2. Moderate-sized bilateral pleural effusions. 3. Moderate-sized consolidations in the lower lobes and right middle lobe. Recommend follow-up to resolution. 4. Small to moderate size ground glass opacity scattered throughout both lungs most prominent in the upper lobes. Recommend follow-up to resolution. 5. Moderate-sized pericardial effusion. 6. Cholelithiasis. 7. Small amount of fluid and fat stranding scattered throughout the abdomen and pelvis for prominent in the right abdomen. 8. Concentric thickening of the cintron of the moderately distended bladder. Differential includes incomplete bladder wall distention, cystitis or sequelae from bladder outlet obstruction. 9. Moderate nonspecific anasarca. 10. Small bilateral fat-containing inguinal hernias, larger on the right which also contains fluid Renal Ultrasound 02/08/25 14:41 IMPRESSION: 1. No hydronephrosis. Thoracentesis Ultrasound 02/08/25 14:42 IMPRESSION: 1. Successful ultrasound-guided thoracentesis yielding 1100 mL of straw-colored fluid. Venous Doppler Study 02/08/25 17:10 IMPRESSION: 1. Deep venous thrombosis at the bilateral popliteal veins. Findings were discussed with Polo Gee, the nurse caring for the patient, at 5:18 PM. Chest X-Ray 02/09/25 08:12 Impression: Mild improvement Labs Labs: Laboratory Results - last 24 hr 02/08/25 02/08/25 02/08/25 11:23 11:26 11:44 WBC RBC Hgb Hct MCV MCH MCHC RDW Plt Count MPV Immature Gran % (Auto) Neut % (Auto) Lymph % (Auto) Bailey % (Auto) Eos % (Auto) Baso % (Auto) Lymph # (Auto) Bailey # (Auto) Eos # (Auto) Baso # (Auto) Abs Immat Gran (auto) Absolute Neuts (auto) Absolute Nucleated RBC Band Neutrophils % Nucleated RBC % Platelet Estimate Large Platelets % Immature Plt Fraction Anisocytosis Macrocytosis [place] Cells Schistocytes PT INR APTT Puncture Site ABG pH ABG pCO2 ABG pO2 ABG PO2/FiO2 Ratio ABG HCO3 ABG O2 Saturation ABG O2 Content ABG Base Excess A-a Gradient Oxyhemoglobin Total Hemoglobin O2 Delivery Device O2 Liters/Min FiO2 Sodium Potassium Chloride Carbon Dioxide Anion Gap BUN Creatinine 2.57 H Estim Creat Clear Calc 28 Estimated GFR 25 L Glucose POC Capillary Glucose 172 H Lactic Acid Calcium Total Bilirubin AST ALT Alkaline Phosphatase Lactate Dehydrogenase C-Reactive Protein 0.9 NT-Pro-B Natriuret Pep 03759 H Total Protein Albumin Procalcitonin 0.1 TSH Free T4 Pleural Fluid Source Pleural Color Pleural Appearance Pleural pH Pleural RBC Pleural Nuc Cells Pleural Neutrophils Pleural Lymphocytes Pleural Macrophages Pleural Mesothelial 02/08/25 02/08/25 02/08/25 13:21 14:25 16:17 WBC RBC Hgb Hct MCV MCH MCHC RDW Plt Count MPV Immature Gran % (Auto) Neut % (Auto) Lymph % (Auto) Bailey % (Auto) Eos % (Auto) Baso % (Auto) Lymph # (Auto) Bailey # (Auto) Eos # (Auto) Baso # (Auto) Abs Immat Gran (auto) Absolute Neuts (auto) Absolute Nucleated RBC Band Neutrophils % Nucleated RBC % Platelet Estimate Large Platelets % Immature Plt Fraction Anisocytosis Macrocytosis Elia Cells Schistocytes PT INR APTT Puncture Site Right brachial ABG pH 7.297 L* ABG pCO2 53.2 H ABG pO2 64.4 L ABG PO2/FiO2 Ratio 2.15 ABG HCO3 25.4 ABG O2 Saturation 90.1 L ABG O2 Content 15.4 L ABG Base Excess -1.6 A-a Gradient 87.0 Oxyhemoglobin 88.7 L Total Hemoglobin 12.3 O2 Delivery Device Venturi mask O2 Liters/Min 6.0 FiO2 30 Sodium Potassium Chloride Carbon Dioxide Anion Gap BUN Creatinine Estim Creat Clear Calc Estimated GFR Glucose POC Capillary Glucose 184 H Lactic Acid Calcium Total Bilirubin AST ALT Alkaline Phosphatase Lactate Dehydrogenase C-Reactive Protein NT-Pro-B Natriuret Pep Total Protein Albumin Procalcitonin TSH Free T4 Pleural Fluid Source Pleural fluid Pleural Color Yellow Pleural Appearance Hazy Pleural pH 7.444 Pleural RBC < 2000 Pleural Nuc Cells 114 Pleural Neutrophils 15 Pleural Lymphocytes 45 Pleural Macrophages 38 Pleural Mesothelial 2 02/08/25 02/09/25 02/09/25 19:05 05:48 06:34 WBC 7.6 6.5 RBC 4.45 L 4.41 L Hgb 11.9 L 11.9 L Hct 39.6 L 39.2 L MCV 89.0 88.9 MCH 26.7 27.0 MCHC 30.1 L 30.4 L RDW 14.9 H 14.8 H Plt Count 141 L 148 L MPV 11.8 H 11.9 H Immature Gran % (Auto) 0.7 H 0.5 Neut % (Auto) 94.1 H 83.7 H Lymph % (Auto) 3.9 L 8.9 L Bailey % (Auto) 1.2 L 6.7 Eos % (Auto) 0.0 0.0 Baso % (Auto) 0.1 L 0.2 Lymph # (Auto) 0.30 L 0.58 L Bailey # (Auto) 0.1 0.4 Eos # (Auto) 0.0 0.0 Baso # (Auto) 0.0 0.0 Abs Immat Gran (auto) 0.05 H 0.03 Absolute Neuts (auto) 7.2 H 5.5 Absolute Nucleated RBC 0.000 0.000 Band Neutrophils % Not Reportable Nucleated RBC % 0.0 0.0 Platelet Estimate Slightly decreased Large Platelets Present % Immature Plt Fraction 10.1 Anisocytosis 1+ Macrocytosis Occasional Elia Cells 1+ Schistocytes None seen PT 13.4 INR 1.0 APTT 21.7 L 35.4 Puncture Site Left radial ABG pH 7.246 L* ABG pCO2 55.0 H ABG pO2 62.2 L ABG PO2/FiO2 Ratio 1.04 ABG HCO3 23.4 ABG O2 Saturation 87.6 L* ABG O2 Content 15.5 L ABG Base Excess -4.4 A-a Gradient 305.1 Oxyhemoglobin 89.4 L Total Hemoglobin 12.3 O2 Delivery Device High flow nasal radha O2 Liters/Min 10.0 FiO2 60 Sodium 136 L Potassium Chloride Carbon Dioxide Anion Gap BUN Creatinine Estim Creat Clear Calc Estimated GFR Glucose POC Capillary Glucose Lactic Acid Calcium Total Bilirubin AST ALT Alkaline Phosphatase Lactate Dehydrogenase C-Reactive Protein NT-Pro-B Natriuret Pep Total Protein Albumin Procalcitonin TSH Free T4 Pleural Fluid Source Pleural Color Pleural Appearance Pleural pH Pleural RBC Pleural Nuc Cells Pleural Neutrophils Pleural Lymphocytes Pleural Macrophages Pleural Mesothelial 02/09/25 02/09/25 02/09/25 06:34 06:34 06:34 WBC RBC Hgb Hct MCV MCH MCHC RDW Plt Count MPV Immature Gran % (Auto) Neut % (Auto) Lymph % (Auto) Bailey % (Auto) Eos % (Auto) Baso % (Auto) Lymph # (Auto) Bailey # (Auto) Eos # (Auto) Baso # (Auto) Abs Immat Gran (auto) Absolute Neuts (auto) Absolute Nucleated RBC Band Neutrophils % Nucleated RBC % Platelet Estimate Large Platelets % Immature Plt Fraction Anisocytosis Macrocytosis Elia Cells Schistocytes PT INR APTT Puncture Site ABG pH ABG pCO2 ABG pO2 ABG PO2/FiO2 Ratio ABG HCO3 ABG O2 Saturation ABG O2 Content ABG Base Excess A-a Gradient Oxyhemoglobin Total Hemoglobin O2 Delivery Device O2 Liters/Min FiO2 Sodium 136 L Potassium 4.9 5.0 Chloride 101 100 Carbon Dioxide 26 Anion Gap BUN Creatinine Estim Creat Clear Calc Estimated GFR Glucose POC Capillary Glucose Lactic Acid Calcium Total Bilirubin AST ALT Alkaline Phosphatase Lactate Dehydrogenase C-Reactive Protein NT-Pro-B Natriuret Pep Total Protein Albumin Procalcitonin TSH Free T4 Pleural Fluid Source Pleural Color Pleural Appearance Pleural pH Pleural RBC Pleural Nuc Cells Pleural Neutrophils Pleural Lymphocytes Pleural Macrophages Pleural Mesothelial 02/09/25 02/09/25 02/09/25 06:34 06:34 06:34 WBC RBC Hgb Hct MCV MCH MCHC RDW Plt Count MPV Immature Gran % (Auto) Neut % (Auto) Lymph % (Auto) Bailey % (Auto) Eos % (Auto) Baso % (Auto) Lymph # (Auto) Bailey # (Auto) Eos # (Auto) Baso # (Auto) Abs Immat Gran (auto) Absolute Neuts (auto) Absolute Nucleated RBC Band Neutrophils % Nucleated RBC % Platelet Estimate Large Platelets % Immature Plt Fraction Anisocytosis Macrocytosis [place] Cells Schistocytes PT INR APTT Puncture Site ABG pH ABG pCO2 ABG pO2 ABG PO2/FiO2 Ratio ABG HCO3 ABG O2 Saturation ABG O2 Content ABG Base Excess A-a Gradient Oxyhemoglobin Total Hemoglobin O2 Delivery Device O2 Liters/Min FiO2 Sodium Potassium Chloride Carbon Dioxide 27 Anion Gap 9 9 BUN 67 H D 64 H Creatinine 3.01 H Estim Creat Clear Calc Estimated GFR Glucose POC Capillary Glucose Lactic Acid Calcium Total Bilirubin AST ALT Alkaline Phosphatase Lactate Dehydrogenase C-Reactive Protein NT-Pro-B Natriuret Pep Total Protein Albumin Procalcitonin TSH Free T4 Pleural Fluid Source Pleural Color Pleural Appearance Pleural pH Pleural RBC Pleural Nuc Cells Pleural Neutrophils Pleural Lymphocytes Pleural Macrophages Pleural Mesothelial 02/09/25 02/09/25 02/09/25 06:34 06:34 06:34 WBC RBC Hgb Hct MCV MCH MCHC RDW Plt Count MPV Immature Gran % (Auto) Neut % (Auto) Lymph % (Auto) Bailey % (Auto) Eos % (Auto) Baso % (Auto) Lymph # (Auto) Bailey # (Auto) Eos # (Auto) Baso # (Auto) Abs Immat Gran (auto) Absolute Neuts (auto) Absolute Nucleated RBC Band Neutrophils % Nucleated RBC % Platelet Estimate Large Platelets % Immature Plt Fraction Anisocytosis Macrocytosis [place] Cells Schistocytes PT INR APTT Puncture Site ABG pH ABG pCO2 ABG pO2 ABG PO2/FiO2 Ratio ABG HCO3 ABG O2 Saturation ABG O2 Content ABG Base Excess A-a Gradient Oxyhemoglobin Total Hemoglobin O2 Delivery Device O2 Liters/Min FiO2 Sodium Potassium Chloride Carbon Dioxide Anion Gap BUN Creatinine 3.14 H Estim Creat Clear Calc 24 23 Estimated GFR 21 L 20 L Glucose 212 H POC Capillary Glucose Lactic Acid Calcium Total Bilirubin AST ALT Alkaline Phosphatase Lactate Dehydrogenase C-Reactive Protein NT-Pro-B Natriuret Pep Total Protein Albumin Procalcitonin TSH Free T4 Pleural Fluid Source Pleural Color Pleural Appearance Pleural pH Pleural RBC Pleural Nuc Cells Pleural Neutrophils Pleural Lymphocytes Pleural Macrophages Pleural Mesothelial 02/09/25 02/09/25 02/09/25 06:34 06:34 06:34 WBC RBC Hgb Hct MCV MCH MCHC RDW Plt Count MPV Immature Gran % (Auto) Neut % (Auto) Lymph % (Auto) Bailey % (Auto) Eos % (Auto) Baso % (Auto) Lymph # (Auto) Bailey # (Auto) Eos # (Auto) Baso # (Auto) Abs Immat Gran (auto) Absolute Neuts (auto) Absolute Nucleated RBC Band Neutrophils % Nucleated RBC % Platelet Estimate Large Platelets % Immature Plt Fraction Anisocytosis Macrocytosis Elia Cells Schistocytes PT INR APTT Puncture Site ABG pH ABG pCO2 ABG pO2 ABG PO2/FiO2 Ratio ABG HCO3 ABG O2 Saturation ABG O2 Content ABG Base Excess A-a Gradient Oxyhemoglobin Total Hemoglobin O2 Delivery Device O2 Liters/Min FiO2 Sodium Potassium Chloride Carbon Dioxide Anion Gap BUN Creatinine Estim Creat Clear Calc Estimated GFR Glucose 215 H POC Capillary Glucose Lactic Acid 1.0 Calcium 8.0 L 8.3 L Total Bilirubin 0.3 AST 23 ALT 19 Alkaline Phosphatase 120 Lactate Dehydrogenase 187 C-Reactive Protein NT-Pro-B Natriuret Pep Total Protein 6.8 6.8 Albumin 3.3 L Procalcitonin TSH 1.160 Free T4 1.16 Pleural Fluid Source Pleural Color Pleural Appearance Pleural pH Pleural RBC Pleural Nuc Cells Pleural Neutrophils Pleural Lymphocytes Pleural Macrophages Pleural Mesothelial 02/09/25 02/09/25 07:48 08:50 WBC RBC Hgb Hct MCV MCH MCHC RDW Plt Count MPV Immature Gran % (Auto) Neut % (Auto) Lymph % (Auto) Bailey % (Auto) Eos % (Auto) Baso % (Auto) Lymph # (Auto) Bailey # (Auto) Eos # (Auto) Baso # (Auto) Abs Immat Gran (auto) Absolute Neuts (auto) Absolute Nucleated RBC Band Neutrophils % Nucleated RBC % Platelet Estimate Large Platelets % Immature Plt Fraction Anisocytosis Macrocytosis [place] Cells Schistocytes PT 13.6 INR 1.0 APTT 26.8 Puncture Site ABG pH ABG pCO2 ABG pO2 ABG PO2/FiO2 Ratio ABG HCO3 ABG O2 Saturation ABG O2 Content ABG Base Excess A-a Gradient Oxyhemoglobin Total Hemoglobin O2 Delivery Device O2 Liters/Min FiO2 Sodium Potassium Chloride Carbon Dioxide Anion Gap BUN Creatinine Estim Creat Clear Calc Estimated GFR Glucose POC Capillary Glucose 189 H Lactic Acid Calcium Total Bilirubin AST ALT Alkaline Phosphatase Lactate Dehydrogenase C-Reactive Protein NT-Pro-B Natriuret Pep Total Protein Albumin Procalcitonin TSH Free T4 Pleural Fluid Source Pleural Color Pleural Appearance Pleural pH Pleural RBC Pleural Nuc Cells Pleural Neutrophils Pleural Lymphocytes Pleural Macrophages Pleural Mesothelial
--- NOTE | 2025-02-09 09:39 | P.CONCA_ITS ---
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 S/P right thoracentesis 1.1 liters. Would need diuretics to prevent recurrence of CHF, but limited now due to renal failure. In future once pneumonia adequately treated then as outpatient obtain [employer] to r/o CAD. (2) Paroxysmal atrial fibrillation: Code(s): I48.0 - Paroxysmal atrial fibrillation Status: Chronic Assessment and Plan: In sinus rhythm. [id number] 3. Given DVT, anticoagulation would be beneficial for this too. (3) HTN (hypertension): Qualifiers: Hypertension type: primary hypertension Qualified Code(s): I10 - Essential (primary) hypertension Code(s): I10 - Essential (primary) hypertension Status: Chronic Assessment and Plan: Stable. (4) DVT (deep venous thrombosis): Code(s): I82.409 - Acute embolism and thrombosis of unspecified deep veins of unspecified lower extremity Status: Acute Assessment and Plan: Will need anticoagulation for 3-6 months. (5) Pneumonia: Qualifiers: Laterality: bilateral Lung location: unspecified part of lung P neumonia type: due to unspecified organism Qualified Code(s): J18.9 - Pneumonia, unspecified organism Code(s): J18.9 - Pneumonia, unspecified organism Status: Acute Assessment and Plan: On antibiotics. History of Present Illness History of Present Illness Consult date/time: 02/09/25 09:39 Reason For Visit: acute hypoxic/hypercapnic resp failure,pna,chf,uti Narrative: 69 yr old man admitted on 02/07/25 for CHF. He has a history of PAF, bilateral BKA, polysubstance abuse, DM, hypertension, dyslipidemia. Reports he felt weak and sob for 2 weeks. Diagnosed with pneumonia and UTI and CHF, and DVT bilaterally. He had right thoracentesis. Went into renal failure. Today he feels less weak and less sob. Denies chest pain, orthopnea, PND, edema, dizziness, palpitations. Review of Systems 2 Review of Systems: All systems reviewed & are unremarkable except as noted in HPI and below Constitutional: Constitutional: Reports as per HPI, Denies chills, Reports fatigue and Denies fever(s) Cardiovascular: Cardiovascular: Reports as per HPI, Denies chest pain and Denies irregular heart rhythm Respiratory: Respiratory: Reports as per HPI and Reports dyspnea Gastrointestinal: Gastrointestinal: Reports as per HPI and Denies abdominal pain Genitourinary: Genitourinary: Reports as per HPI Musculoskeletal: Musculoskeletal: Reports as per HPI Neurologic: Reports as per HPI, Denies dizziness and Denies syncope [facility] Past Medical History Medical History Insulin dependent diabetes mellitus Hyperlipidemia Hypertension Tobacco dependence Polysubstance abuse Paroxysmal atrial fibrillation Prostate cancer Status post radiation. Gastroesophageal reflux disease Tuberculosis (2014) Diabetic retinopathy Hepatitis C Anxiety Depression Surgical History Surgical History History of right below knee amputation History of appendectomy History of tonsillectomy History of left below knee amputation Family History Family History Father Diabetes mellitus Son Heart disease Mother Heart disease Sibling Cerebral aneurysm Social History Social History Social History: Surrogate medical decision maker: Luma Blank, daughter. Code status: Full code. Smoking packs per day: 0.5 Smoking cigarettes per day: 10.0 Years smoked: 54 Smoking pack-years: 27.00 Smoking status: Light tobacco smoker Tobacco type: cigarettes Second hand tobacco smoke exposure: Yes Alcohol intake: never Drinks per week: 14 Substance use: never Substance use type: marijuana and amphetamines Lack of Transportation: YES Lack of Food: Often True Current Housing: I Have Housing Concerned About Future Housing: YES Difficulty Paying Gas/Electric Bills: YES Difficulty Paying for Meds: YES Currently Unemployed: No Education: High School Diploma/GED Difficulty w/ Childcare or Family Care: No Living arrangements: with friend(s) Additional living arrangements comments: Currently staying with a friend. 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 Spiritual care concerns: No Agree to blood products: Yes Meds Home Medications and Allergies Home Medications ?Medication ?Instructions ?Recorded ?Confirmed ?Type metformin 500 mg tablet 500 mg PO BID 11/07/2202/06 History insulin glargine 100 unit/mL (3 15 unit (0.15 mL) subc ut HS #15 mL 11/14/22 02/06/25 Rx mL) subcutaneous pen (Lantus Solostar U-100 Insulin) insulin lispro 100 unit/mL 4 unit (0.04 mL) subcut AC #15 mL 11/14/22 02/06/25 Rx subcutaneous pen sertraline 50 mg tablet (Zoloft) 25 mg (1/2 x 50 mg) P O QAM #30 tabs 11/14/22 02/06/25 Rx Allergies Allergy/AdvReac Type Severity Reaction Status Date / Time No Known Allergies Allergy Mild Verified 02/06/25 18:35 Vital Signs Vital Signs - 24 hr 02/08/25 12:00 02/08/25 12:00 02/08/25 14:55 Temperature 98.3 F 97.4 F L Pulse Rate 94 93 94 Respiratory Rate 24 H 22 H Blood Pressure 144/85 H 147/92 H Pulse Oximetry 98 92 Oxygen Delivery Oxygen Flow Rate Fraction of Inspired Oxygen 02/08/25 15:10 02/08/25 15:11 02/08/25 15:20 Temperature Pulse Rate 92 92 90 Respiratory Rate 18 24 H 20 Blood Pressure Pulse Oximetry 90 Oxygen Delivery Oxygen Flow Rate Fraction of Inspired Oxygen 02/08/25 16:00 02/08/25 17:00 02/08/25 20:00 Temperature 97.4 F L Pulse Rate 93 94 Respiratory Rate 22 H Blood Pressure 147/92 H Pulse Oximetry 92 95 Oxygen Delivery High Flow Nasal Cannula Oxygen Flow Rate 10 Fraction of Inspired Oxygen 02/08/25 20:00 02/08/25 20:19 02/08/25 20:44 Temperature 98.0 F Pulse Rate 95 95 Respiratory Rate 18 Blood Pressure 160/90 H Pulse Oximetry 93 94 Oxygen Delivery High Flow Nasal Cannula Oxygen Flow Rate 10 Fraction of Inspired Oxygen 02/09/25 00:00 02/09/25 00:40 02/09/25 00:47 Temperature Pulse Rate 95 85 88 Respiratory Rate 20 20 Blood Pressure Pulse Oximetry Oxygen Delivery Oxygen Flow Rate Fraction of Inspired Oxygen 02/09/25 04:17 02/09/25 04:24 02/09/25 08:00 Temperature Pulse Rate 92 95 Respiratory Rate 20 20 Blood Pressure Pulse Oximetry 94 Oxygen Delivery High Flow Nasal Cannula Oxygen Flow Rate 10 Fraction of Inspired Oxygen 36 02/09/25 08:03 02/09/25 08:08 02/09/25 08:09 Temperature 97.5 F L Pulse Rate 93 94 Respiratory Rate 22 H 20 Blood Pressure 141/84 H Pulse Oximetry 97 93 Oxygen Delivery High Flow Nasal Cannula Oxygen Flow Rate 10 Fraction of Inspired Oxygen 02/09/25 08:15 Temperature Pulse Rate 98 Respiratory Rate 16 Blood Pressure Pulse Oximetry Oxygen Delivery Oxygen Flow Rate Fraction of Inspired Oxygen Exam 2 Const: General: cooperative, healthy appearing and comfortable Resp: Auscultation: no crackles, no rales, no rhonchi, no wheezes and diminished lung sounds Cardio: Rate: regular rate Rhythm: regular rhythm Heart sounds: no murmurs Peripheral pulses: dorsalis pedis present GI: GI Palp: No abdominal tenderness and Yes Soft to palpation Neuro: General: oriented to person, oriented to place and oriented to time Extrem: Other: BKA bilaterally Results Labs and Meds 02/09/25 06:34 02/09/25 06:34 Lab results: Cardiac Enzymes 02/09/25 Range/Units 06:34 AST 23 (17-59) U/L Lactate Dehydrogenase 187 (120-246) U/L Coagulation 02/08/25 02/09/25 02/09/25 Range/Units 19:05 06:34 08:50 PT 13.4 13.6 (11.1-14.7) Seconds APTT 21.7 L 35.4 26.8 (22.3-36.8) Seconds CBC 02/08/25 02/09/25 Range/Units 19:05 06:34 WBC 7.6 6.5 (4.5-10.0) K/mm3 RBC 4.45 L 4.41 L (4.6-6.20) M/mm3 Hgb 11.9 L 11.9 L (14.0-18.0) g/dL Hct 39.6 L 39.2 L (42.0-52.0) % Plt Count 141 L 148 L (150-375) k/mm3 Lymph # (Auto) 0.30 L 0.58 L (0.9-3.2) K/mm3 [place] # (Auto) 0.1 0.4 (0.1-0.6) K/mm3 Eos # (Auto) 0.0 0.0 (0-0.3) K/mm3 Baso # (Auto) 0.0 0.0 (0.0-0.1) K/mm3 Comprehensive Metabolic Panel 02/08/25 02/09/25 02/09/25 Range/Units 11:26 06:34 06:34 Sodium 136 L 136 L (137-145) mmol/L Potassium 4.9 (3.4-5.0) mmol/L Chloride (98-107) mmol/L Carbon Dioxide (22-30) mmol/L BUN (9-20) mg/dL Creatinine 2.57 H (0.7-1.3) mg/dL Glucose (65-110) mg/dL Calcium (8.4-10.2) mg/dL AST (17-59) U/L ALT (6-50) U/L Alkaline Phosphatase (38-126) U/L Total Protein (6.3-8.2) g/dL Albumin (3.5-5.1) g/dL 02/09/25 02/09/25 02/09/25 Range/Units 06:34 06:34 06:34 Sodium (137-145) mmol/L Potassium 5.0 (3.4-5.0) mmol/L Chloride 101 100 (98-107) mmol/L Carbon Dioxide 26 27 (22-30) mmol/L BUN 67 H D (9-20) mg/dL Creatinine (0.7-1.3) mg/dL Glucose (65-110) mg/dL Calcium (8.4-10.2) mg/dL AST (17-59) U/L ALT (6-50) U/L Alkaline Phosphatase (38-126) U/L Total Protein (6.3-8.2) g/dL Albumin (3.5-5.1) g/dL 02/09/25 02/09/25 02/09/25 Range/Units 06:34 06:34 06:34 Sodium (137-145) mmol/L Potassium (3.4-5.0) mmol/L Chloride (98-107) mmol/L Carbon Dioxide (22-30) mmol/L BUN 64 H (9-20) mg/dL Creatinine 3.01 H 3.14 H (0.7-1.3) mg/dL Glucose 212 H 215 H (65-110) mg/dL Calcium 8.0 L (8.4-10.2) mg/dL AST (17-59) U/L ALT (6-50) U/L Alkaline Phosphatase (38-126) U/L Total Protein (6.3-8.2) g/dL Albumin (3.5-5.1) g/dL 02/09/25 02/09/25 Range/Units 06:34 06:34 Sodium (137-145) mmol/L Potassium (3.4-5.0) mmol/L Chloride (98-107) mmol/L Carbon Dioxide (22-30) mmol/L BUN (9-20) mg/dL Creatinine (0.7-1.3) mg/dL Glucose (65-110) mg/dL Calcium 8.3 L (8.4-10.2) mg/dL AST 23 (17-59) U/L ALT 19 (6-50) U/L Alkaline Phosphatase 120 (38-126) U/L Total Protein 6.8 6.8 (6.3-8.2) g/dL Albumin 3.3 L (3.5-5.1) g/dL Intake and Output 02/08/25 02/09/25 02/09/25 23:59 07:59 15:59 Intake Total 200 75.2 Balance 200 75.2 Intake: IV 75.2 Heparin Sod/D5w 100 Units/ml 25 75.2 ,000 units In 250 ml @ 0 mls/hr IV CONT .Q0M [facility] Rx#:[id number] Oral 200 Other: # Unmeasured Voids 4 3 Patient Weight 02/09/25 23:59 Weight 79.9 kg
[2025-02-09] MEDS: AZITHROMYCIN IV 500 MG in SODIUM CHLORIDE 0.9% IV 250 ML IVPB (12:04)
[2025-02-09 12:26] LABS: MRSA (PCR) NOT DETECTED (NOT DETECTE)
--- NOTE | 2025-02-09 13:28 | PC.NURSE ---
pt taken for thoracentesis
--- NOTE | 2025-02-09 13:32 | CY_PTH ---
PATIENT: Humberto Helms LOC: [id number] U#:[id number] AGE/SX: 69/M ROOM: 246 RE02/07/[address]: Pedro Ruano MD : [id number] BED: 01 DIS: 02/16/2025 SPEC #: [id number] RECD: 02/10/25 08:08 STATUS: NARCISA REJunito #: [id number] JENNY: 02/09/25 13:[address]: Derek Sweeney DEPT: [facility] Cytology RECD BY: Beatrice Souza ENTERED: 02/10/25 08:09 SP TYPE: Cytology OTHR DR: DO Riley Hernandes MD Evelyne Thomas, JEFFREY UNKNOWN,DOCTOR Tissues: A - Pleural Fluid Procedures: Hematoxylin and Eosin Stain Cell Block Cytopathology Cytospin
[2025-02-09] MEDS: VANCOMYCIN HCL 1,000 MG in SODIUM CHLORIDE 0.9% IV 250 ML 250 MG IVPB (14:11)
--- NOTE | 2025-02-09 14:36 | PC.NURSE ---
Provider called and notified that patient has been brought back from thoracentesis. Pt requesting to eat and drink but per ultra sound should remain NPO for 2 hrs after procedure. Provider agreed and stated that patient my resume diet at the 2 hr héctor post procedure. Provider was also asked about the continuation, hold, or discontinuation of the heparin drip. Provider stated she will look into the heparin order and will place new orders once reviewed.
[2025-02-09 15:07] LABS: Appearance Pleural Fluid Cloudy (Clear); Color Pleural Fluid Yellow (Colorless); Nucleated Cell Pleural Fluid 221 /uL (0-1000)
[2025-02-09 15:08] LABS: Lymphocytes Pleural Fluid 15 %; Macrophages Pleural Fluid 72 %; Neutrophils Pleural Fluid 13 % (0-25)
[2025-02-09 15:09] LABS: LD, Body Fluid 57 IU/L (.)
[2025-02-10] VITALS (12 sets, daily range): BP systolic 150–153; BP diastolic 77–90; PULSE 78–98; RESP 20–22; TEMP 36.5–36.8; O2SAT 87–98
--- NOTE | 2025-02-10 01:19 | PC.NURSE ---
Iv, oxygen, sleep apnea link was taken off by pt. sleep apnea link was not reapplied, oxygen has been reapplied at this time, no iv access right now and pt will not let us try for another one at this point but will continue to communicate the importance of iv access while being in the hospital with pt.
--- NOTE | 2025-02-10 02:29 | PCRCNOTE ---
Apnea Link Test Set up 02/09/253 Ended 02/10/25 0115 Pt. on 2 Lpm NC, he would remove his nasal cannula and staff replaced it with minimal disturbance during test. RN did not increase oxygen during test stating when on oxygen he would occasionally dip down to 88-89% Spo2 but recovered quickly. When his ready was very low staff knew he had removed oxygen. Test ended because pt. had pulled pulse ox completely off and apart.
[2025-02-10] MEDS: IPRATROPIUM 0.5 MG/ALBUTEROL SULFATE 2.5 MG AMPUL.NEB 3 ML INHALATION ×2 (03:53→07:51)
--- NOTE | 2025-02-10 07:21 | PC.NURSE ---
was doing bedside shift report with Misti BLACKWELL and when we walked in room pt had oxygen out of nose when asked to put oxygen back in nose pt said fuck off I am eating asked if he could wear the oxygen while he ate pt said no leave me alone pts oxygen saturation is 79% on room air
--- NOTE | 2025-02-10 08:19 | PM.PNCARD ---
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 S/P right thoracentesis 1.1 liters. Would need diuretics to prevent recurrence of CHF, but limited now due to renal failure. In future once pneumonia adequately treated then as outpatient obtain [employer] myoview to r/o CAD. Will sign off, please call with any questions. (2) Paroxysmal atrial fibrillation: Code(s): I48.0 - Paroxysmal atrial fibrillation Status: Chronic Assessment and Plan: In sinus rhythm. [id number] 3. Given DVT, anticoagulation would be beneficial for this too. (3) HTN (hypertension): Qualifiers: Hypertension type: primary hypertension Qualified Code(s): I10 - Essential (primary) hypertension Code(s): I10 - Essential (primary) hypertension Status: Chronic Assessment and Plan: Stable. (4) DVT (deep venous thrombosis): Code(s): I82.409 - Acute embolism and thrombosis of unspecified deep veins of unspecified lower extremity Status: Acute Assessment and Plan: On heparin drip. Will need anticoagulation for 3-6 months. (5) Pneumonia: Qualifiers: Laterality: bilateral Lung location: unspecified part of lung Pneumonia type: due to unspecified organism Qualified Code(s): J18.9 - Pneumonia, unspecified organism Code(s): J18.9 - Pneumonia, unspecified organism Status: Acute Assessment and Plan: On antibiotics. Subjective Date/time seen: 02/10/25 08:19 Interval history: Denies chest pain and breathing is OK. Exam Const: General: cooperative, healthy appearing and comfortable Orientation/consciousness: oriented to person, oriented to place and oriented to time Resp: Auscultation: no crackles, no rales, no rhonchi, no wheezes and diminished lung sounds Cardio: Rate: regular rate Rhythm: regular rhythm Heart sounds: no murmurs Peripheral pulses: dorsalis pedis present Neuro: General: oriented to person, oriented to place and oriented to time Extrem: Other: BKA bilaterally Objective Data Vital Signs Vital Signs: Vital Signs - 24 hr 02/09/25 12:03 02/09/25 12:11 02/09/25 16:00 Temperature Pulse Rate 94 94 92 Respiratory Rate 16 16 Blood Pressure Pulse Oximetry Oxygen Delivery Oxygen Flow Rate 02/09/25 16:20 02/09/25 19:46 02/09/25 19:49 Temperature 97.5 F L Pulse Rate 93 93 Respiratory Rate 18 20 Blood Pressure 125/65 Pulse Oximetry 94 92 91 Oxygen Delivery High Flow Nasal Cannula High Flow Nasal Cannula Oxygen Flow Rate 3 02/09/25 19:49 02/09/25 19:55 02/09/25 20:00 Temperature 98.5 F Pulse Rate 93 91 92 Respiratory Rate 20 17 18 Blood Pressure 131/70 Pulse Oximetry 92 Oxygen Delivery Oxygen Flow Rate 02/09/25 20:00 02/09/25 20:00 02/09/25 22:25 Temperature Pulse Rate 88 90 Respiratory Rate Blood Pressure Pulse Oximetry 95 95 Oxygen Delivery Nasal Cannula High Flow Nasal Cannula Oxygen Flow Rate 3 3 02/09/25 22:30 02/10/25 00:00 02/10/25 03:53 Temperature Pulse Rate 78 93 Respiratory Rate 22 H Blood Pressure Pulse Oximetry 92 Oxygen Delivery High Flow Nasal Cannula Oxygen Flow Rate 2 02/10/25 04:00 02/10/25 04:05 02/10/25 07:51 Temperature Pulse Rate 94 91 Respiratory Rate 20 Blood Pressure Pulse Oximetry 90 Oxygen Delivery High Flow Nasal Cannula Oxygen Flow Rate 3 02/10/25 07:51 02/10/25 08:00 02/10/25 08:05 Temperature 97.7 F Pulse Rate 97 95 93 Respiratory Rate 20 20 20 Blood Pressure 153/90 H Pulse Oximetry 87 L Oxygen Delivery Oxygen Flow Rate Intake/Output Intake/Output: Intake & Output 02/07/25 02/08/25 02/09/25 02/10/25 23:59 23:59 23:59 23:59 Intake Total 1610 740 315.2 Output Total 400 1100 1100 Balance 8744 -452 -674.8 Meds/Results Medications: Active Medications Generic Name Dose Route Start Last Admin Trade Name Freq PRN Reason Stop Dose Admin Acetaminophen 650 mg 02/06/25 15:03 Acetaminophen 325 Mg Tablet PO Q4H PRN Mild Pain (1-3) or Fever Albuterol/Ipratropium 3 ml 02/08/25 16:00 02/10/25 07:51 Ipratropium 0.5 Mg/Albuterol Sulfate 2.5 Mg Ampul.Neb 3 Ml INHALATION 3 ml Q4HRT OMI Administration Amlodipine Besylate 5 mg 02/09/25 09:15 02/09/25 12:05 Amlodipine Besylate 5 Mg Tablet PO 5 mg DAILY OMI Administration Benzonatate 100 mg 02/06/25 16:24 Benzonatate 100 Mg Capsule PO TID PRN Cough Dextrose 12.5 gm 02/06/25 15:03 Dextrose 50% 25 Gm/50 Ml Syringe IV PUSH PRN PRN Hypoglycemia Protocol Enoxaparin Sodium 40 mg 02/07/25 09:00 02/08/25 07:56 Enoxaparin 40 Mg/0.4 Ml Syringe SUB-Q Not Given On Hold: 02/08/25 11:15 DAILY OMI Glucagon 1 mg 02/06/25 15:03 Glucagon For Inj 1 Mg Vial IM PRN PRN Hypoglycemia Protocol Glucose 15 gm 02/06/25 15:03 Glucose Oral Gel 15 Gm Of Glucse In 37.5 Gm Tube PO PRN PRN Hypoglycemia Protocol Guaifenesin 1,200 mg 02/08/25 21:00 02/09/25 20:21 Guaifenesin 12 Hr 600 Mg Tabcr PO 1,200 mg Q12HR OMI Administration Heparin Sodium (Porcine) 3,500 units 02/08/25 18:05 Heparin Sodium 5,000 Units/Ml Vial IV PUSH PRN PRN aPTT 55 - 70 seconds Heparin Sodium (Porcine) 4,000 units 02/08/25 22:06 Heparin Sodium 5,000 Units/Ml Vial IV PUSH PRN PRN aPTT less than 55 seconds Hydralazine HCl 25 mg 02/07/25 17:12 Hydralazine Hcl 25 Mg Tablet PO Q8H PRN Hypertensive Emergency Azithromycin 500 mg/ Sodium 250 mls @ 250 mls/hr 02/07/25 13:00 02/09/25 12:04 Chloride IVPB 02/10/25 13:59 250 mls/hr Q24H OMI Administration Dextrose 1,000 mls @ 100 mls/hr 02/06/25 15:03 Dextrose 5% 1,000 Ml IVPB PRN PRN Hypoglycemia Protocol Heparin Sodium/Dextrose 25,000 units in 250 mls @ 0 mls/hr 02/08/25 22:05 02/09/25 06:00 Heparin Sodium/D5w 100 Units/Ml IV CONT 0 units/hr On Hold: 02/09/25 07:23 .Q0M OMI 0 mls/hr Protocol Titration Cefepime HCl 2 gm/ Sodium 50 mls @ 100 mls/hr 02/10/25 09:00 Chloride IVPB Q24H [facility] Insulin Aspart 2 - 5 units 02/06/25 17:00 02/09/25 16:09 Insulin Aspart (*Bkc) 100 Units/Ml SUB-Q Not Given TIDWM [facility] Protocol Insulin Aspart 2 units 02/09/25 12:00 02/09/25 16:09 Insulin Aspart (*Bkc) 100 Units/Ml SUB-Q Not Given TIDWM [facility] Ondansetron HCl 4 mg 02/06/25 15:03 Ondansetron Inj 4 Mg/2 Ml Vial IV PUSH Q4H PRN Nausea Radiology Results: ITS Impressions Head CT 02/06/25 12:24 IMPRESSION: 1. No acute intracranial findings. Chest/Abdomen/Pelvis CTA 02/06/25 13:40 IMPRESSION: 1. No pulmonary embolism identified. 2. Moderate-sized bilateral pleural effusions. 3. Moderate-sized consolidations in the lower lobes and right middle lobe. Recommend follow-up to resolution. 4. Small to moderate size ground glass opacity scattered throughout both lungs most prominent in the upper lobes. Recommend follow-up to resolution. 5. Moderate-sized pericardial effusion. 6. Cholelithiasis. 7. Small amount of fluid and fat stranding scattered throughout the abdomen and pelvis for prominent in the right abdomen. 8. Concentric thickening of the cintron of the moderately distended bladder. Differential includes incomplete bladder wall distention, cystitis or sequelae from bladder outlet obstruction. 9. Moderate nonspecific anasarca. 10. Small bilateral fat-containing inguinal hernias, larger on the right which also contains fluid Renal Ultrasound 02/08/25 14:41 IMPRESSION: 1. No hydronephrosis. Venous Doppler Study 02/08/25 17:10 IMPRESSION: 1. Deep venous thrombosis at the bilateral popliteal veins. Findings were discussed with Polo Gee, the nurse caring for the patient, at 5:18 PM. Thoracentesis Ultrasound 02/09/25 14:20 IMPRESSION: 1. Successful ultrasound-guided thoracentesis yielding 1100 mL of straw-colored fluid. Labs Labs: Laboratory Results - last 24 hr 02/08/25 02/09/25 02/09/25 13:21 08:50 10:54 PT 13.6 INR 1.0 APTT 26.8 POC Capillary Glucose Fluid LDH 57 Pleural Fluid Source Pleural Color Pleural Appearance Pleural pH Pleural RBC Pleural Nuc Cells Pleural Neutrophils Pleural Lymphocytes Pleural Macrophages Pleural Total Protein Nasal MRSA (PCR) Vancomycin Trough 10.8 02/09/25 02/09/25 02/09/25 11:05 11:45 13:32 PT INR APTT POC Capillary Glucose 167 H Fluid LDH Pleural Fluid Source Pleural fluid Pleural Color Yellow Pleural Appearance Cloudy Pleural pH 7.401 Pleural RBC < 2000 Pleural Nuc Cells 221 Pleural Neutrophils 13 Pleural Lymphocytes 15 Pleural Macrophages 72 Pleural Total Protein Cancelled Nasal MRSA (PCR) Not detected Vancomycin Trough 02/09/25 02/10/25 15:57 07:08 PT INR APTT POC Capillary Glucose 153 H 141 H Fluid LDH Pleural Fluid Source Pleural Color Pleural Appearance Pleural pH Pleural RBC Pleural Nuc Cells Pleural Neutrophils Pleural Lymphocytes Pleural Macrophages Pleural Total Protein Nasal MRSA (PCR) Vancomycin Trough
--- NOTE | 2025-02-10 09:52 | PM.IMPN ---
Progress Note: A&P Assessment and Plan (1) Sepsis: Qualifiers: Sepsis acute organ dysfunction status: without acute organ dysfunction Sepsis type: sepsis due to unspecified organism Qualified Code(s): A41.9 - Sepsis, unspecified organism Code(s): A41.9 - Sepsis, unspecified organism Status: Acute Assessment and Plan: Met SIRS criteria on admission: HR >90, RR >20. +Hypoxia, -HypoTN. Blood cultures obtained on 02/06, follow. LABS lactic and procalcitonin >> 0.9 and procal 0.1 IMAGING 02/06 CXR: CHF. Superimposed probable pneumonia 02/06 CTA chest/abdomen/pelvis: 1. No pulmonary embolism identified. 2. Moderate-sized bilateral pleural effusions. 3. Moderate-sized consolidations in the lower lobes and right middle lobe. Recommend follow-up to resolution. 4. Small to moderate size ground glass opacity scattered throughout both lungs most prominent in the upper lobes. Recommend follow-up to resolution. 5. Moderate-sized pericardial effusion. 6. Cholelithiasis. 7. Small amount of fluid and fat stranding scattered throughout the abdomen and pelvis for prominent in the right abdomen. 8. Concentric thickening of the cintron of the moderately distended bladder. Differential includes incomplete bladder wall distention, cystitis or sequelae from bladder outlet obstruction. 9. Moderate nonspecific anasarca. 10. Small bilateral fat-containing inguinal hernias, larger on the right which also contains fluid Antibiotics: Started on empiric Ceftiaxone 02/07, increased oxygen requirement on IV diuretics so broadened to Cefepime, Vanc, Flagyl 02/08 PLAN s/p 1L bolus, hold on further fluids due to concern for significant volume overload on imaging, see CHF. - suspected source -> pneumonia and UTI -Antibiotics as noted - monitor hemodynamic stability and O2 saturation (2) Acute on chronic respiratory failure with hypoxia and hypercapnia: Code(s): J96.21 - Acute and chronic respiratory failure with hypoxia; J96.22 - Acute and chronic respiratory failure with hypercapnia Status: Acute Assessment and Plan: Etiology of Respiratory Failure: Possible fluid overload from CHF vs pneumonia Imaging concerning for significant volume overload as evidenced by moderate pleural effusions, moderate nonspecific anasarca, moderate sized pericardial effusion. CTA negative for PE --Consults: pulmonary, cardiology, renal LABS WBC normal since admission 02/06 ABG: PH 7.305/CO2 64, HC03 31.1/O2 saturation 92.7% on 3L 02/08 ABG: Ph 7.297/53.2/25.4/O2 sat 901. on 6L 02/09 ABG: pH 7.246/ 55/23.4/ O2 sat 87.6 on 10L Acute respiratory failure air likely multifactorial including suspected CHF, multifocal pneumonia. Patient is an everyday smoker (1PPD), but no evidence of COPD on imaging. Initially started on Prednisone, now stopped. No wheezing --Pulmonary consulted, appreciate recommendations --nebulizers p.r.n --Off diuretics for GERONIMO --Antibiotics for pneumonia -- Tried BiPAP for an hour and took it off. Tried AVAPS 02/08 DNR/DNI (3) Pneumonia: Qualifiers: Laterality: bilateral Lung location: unspecified part of lung Pneumonia type: due to unspecified organism Qualified Code(s): J18.9 - Pneumonia, unspecified organism Code(s): J18.9 - Pneumonia, unspecified organism Status: Acute Assessment and Plan: 02/09 CT Concerning for pneumonia but WBC has been normal. No fevers Started on Cap tx: Ceftriaxone and azithromycin IV. Changed to Cefepime, Vanc, Flagyl 02/08 since increased oxygen requirements. Stopped Vancomycin 02/09. Stopped cefepime and resumed Ceftriaxone primarily for UTI since no evidence of infection on pleural fluid -Appreciate pulmonary recommendations. --MRSA PCR negative --sputum culture - Viral PCR negative on 02/06 - Supportive care: Mucinex yomaira, Tessalon Perles p.r.n., DuoNebs p.r.n., Tylenol p.r.n. (4) Congestive heart failure: Qualifiers: Heart failure chronicity: acute Heart failure type: unspecified Qualified Code(s): I50.9 - Heart failure, unspecified Code(s): I50.9 - Heart failure, unspecified Status: Suspected Assessment and Plan: Suspected acute CHF. No previous echo available. Decreased LVEF 45-50% and inferior/posterior hypokinesia. Also noted to have a moderate pericardial effusion on CT 02/07 TTE 1. Complete two-dimensional, color flow and Doppler transthoracic echocardiogram is performed. 2. Concentric left ventricular hypertrophy with mild systolic dysfunction, inferior/posterior hypokinesia. 3. Grade 2 diastolic noncompliance. 4. Mild mitral regurgitation. 5. Mildly enlarged ascending aorta, 4.2 cm. 6. Trivial posterior pericardial effusion. see CXR and CT impressions above, concern for volume overload. No peripheral edema to bilateral thighs. BNP 82581 02/06, 82755 on 02/08 PLAN - started on Lasix 40 mg IV b.i.d, on hold for worsening GERONIMO -No QUANG/ARB with GERONIMO - monitor I&Os and daily weights - trend renal function -Cardiology consult for new heart failure, appreciate recommendations. Has a moderate pericardial effusion and limited medication options with GERONIMO Recommending lexiscan myoview outpatient to rule out CAD (5) Pleural effusion: Code(s): J90 - Pleural effusion, not elsewhere classified Status: Acute Assessment and Plan: moderate-sized bilateral pleural effusions noted on CTA, suspected CHF, see above currently requiring supplemental O2, wean as tolerated, maintain O2 sat greater than 92% --s/p Right & Left Thoracentesis. 1100 out on the right 02/08, 1100 on the left 02/09 --Unable to diuresis with GERONIMO --Weaned to 2L, follow oxygen requirements (6) GERONIMO (acute kidney injury): Code(s): N17.9 - Acute kidney failure, unspecified Status: Acute Assessment and Plan: Baseline creatinine 0.7-0.9 from 2019 to 2022, no recent lab work available for comparison. Patient reports he has not been to the doctor in a couple of years Creatinine 1.52, BUN 34, GFR 46 upon admission on 02/06. CK 70 Bladder scan was 220 02/08 Total protein 6.8 Albumin 3.3 02/06 CTA showed concentric thickening of the cintron of the moderately distended bladder, differential including incomplete bladder wall distension, cystitis, or sequela from bladder outlet obstruction. UA concerning for UTI. Concern for CHF/volume overload as evidenced by a pleural effusions, moderate size pericardial effusion, and moderate nonspecific anasarca on CT. Starting diuresis. 02/08 renal US--No Hydronephrosis PLAN -Nephrology consult. Worsening despite diuresis & treatment of UTI. Recently received CT contrast. 4+ protein on initial UA --Urine studies: UA/micro, urine sodium, urea, protein/creatinine ratio --Holding diuretics for GERONIMO (7) UTI (urinary tract infection): Qualifiers: Hematuria presence: with hematuria Urinary tract infection type: acute cystitis Qualified Code(s): N30.01 - Acute cystitis with hematuria Code(s): N39.0 - Urinary tract infection, site not specified Status: Acute Assessment and Plan: UA: Cloudy, 4+ protein, trace glucose, trace ketones, 2+ blood, 1+ leuk history is, 11-28 RBC, 51-100 WBC, occasional epithelial cells, no bacteria - UC pending, Growing GNB. Growing serratia marcescens - previous micro reviewed, grew Klebsiella in 2020 that was resistant to ampicillin only - started on Ceftriaxone on 02/07. Changed antibiotics as above, Now on Cefepime. 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 02/06/25 9.0 reports he is not on any home medications - hypoglycemia protocol - POC blood glucose ACHS - Started low dose sliding scale TIDWM. Blood sugars still elevated, add 2 units TID with meals, SSI --Diabetes ed consult prior to discharge. Will need a meter. Can consider oral meds for discharge (9) Paroxysmal atrial fibrillation: Code(s): I48.0 - Paroxysmal atrial fibrillation Status: Chronic Assessment and Plan: History of paroxysmal AFib, currently stable. - initial EKG showed sinus tachycardia, NSR - telemetry monitoring --Resuming anticoagulation today post thoracentesis (10) HTN (hypertension): Qualifiers: Hypertension type: primary hypertension Qualified Code(s): I10 - Essential (primary) hypertension Code(s): I10 - Essential (primary) hypertension Status: Chronic Assessment and Plan: Reports he is not on any home medications, SBP 170/94 in the ER in the setting of respiratory distress - hydralazine p.r.n. for BP greater than 200 -started amlodipine 10 mg daily, blood pressure 120's. Reduced to 2.5mg<5mg<7mg daily --Follow BP, increase amlodipine as tolerated - monitor Plan Diet: Diabetic GI Prophylaxis: N/a DVT Prophylaxis: Lovenox SQ changed to heparin drip IV fluids: 1L bolus, no further fluids due to concern for CHF Lines/Tubes: Peripheral IV Code Status: DNR/DNI Time Spent With Patient Time: 57 minutes Subjective Date/time seen: 02/10/25 09:52 Interval history: s/p left thoracentesis 02/09 1100 out. Right thoracentesis 01/29 also with 1100 out Creatinine still uptrending. Consult renal Chest x-ray today showing a large right and small left pleural effusion with basilar atelectasis. Developing interstitial pneumonia or pneumonitis Resume heparin drip, labs at 4pm Weaned to 2L O2. Review of Systems Review of Systems: All systems reviewed & are unremarkable except as noted in HPI and below Exam Narrative: General - Awake and alert. Eyes - PERRLA, EOM intact . Bruising under right eye ENT - No thrush, No erythema Neck - No noticeable or palpable swelling Lymph Nodes - No lymphadenopathy Cardiovascular - RRR no m/r/g, no JVD Lungs: Decreased breath sounds bilateral lower lobes Left more aerated that right No wheezing, use of accessory muscles, no crackles Skin - Skin warm and dry, no wounds or rashes Abdomen - Normal bowel sounds, abdomen soft and nontender Extremities - No edema, cyanosis or clubbing Musculoskeletal - 5/5 strength, normal range of motion. Bilateral BKA Neurological ? Alert and oriented x 3 but slow to remember month and year CN 2-12 grossly intact. Psych: Normal mood and affect Objective Data Vital Signs Vital Signs: Vital Signs - 24 hr 02/09/25 12:03 02/09/25 12:11 02/09/25 16:00 Temperature Pulse Rate 94 94 92 Respiratory Rate 16 16 Blood Pressure Pulse Oximetry Oxygen Delivery Oxygen Flow Rate 02/09/25 16:20 02/09/25 19:46 02/09/25 19:49 Temperature 97.5 F L Pulse Rate 93 93 Respiratory Rate 18 20 Blood Pressure 125/65 Pulse Oximetry 94 92 91 Oxygen Delivery High Flow Nasal Cannula High Flow Nasal Cannula Oxygen Flow Rate 3 02/09/25 19:49 02/09/25 19:55 02/09/25 20:00 Temperature 98.5 F Pulse Rate 93 91 92 Respiratory Rate 20 17 18 Blood Pressure 131/70 Pulse Oximetry 92 Oxygen Delivery Oxygen Flow Rate 02/09/25 20:00 02/09/25 20:00 02/09/25 22:25 Temperature Pulse Rate 88 90 Respiratory Rate Blood Pressure Pulse Oximetry 95 95 Oxygen Delivery Nasal Cannula High Flow Nasal Cannula Oxygen Flow Rate 3 3 02/09/25 22:30 02/10/25 00:00 02/10/25 03:53 Temperature Pulse Rate 78 93 Respiratory Rate 22 H Blood Pressure Pulse Oximetry 92 Oxygen Delivery High Flow Nasal Cannula Oxygen Flow Rate 2 02/10/25 04:00 02/10/25 04:05 02/10/25 07:51 Temperature Pulse Rate 94 91 Respiratory Rate 20 Blood Pressure Pulse Oximetry 90 Oxygen Delivery High Flow Nasal Cannula Oxygen Flow Rate 3 02/10/25 07:51 02/10/25 08:00 02/10/25 08:05 Temperature 97.7 F Pulse Rate 97 95 93 Respiratory Rate 20 20 20 Blood Pressure 153/90 H Pulse Oximetry 87 L Oxygen Delivery Oxygen Flow Rate Intake/Output Intake/Output: Intake & Output 02/07/25 02/08/25 02/09/25 02/10/25 23:59 23:59 23:59 23:59 Intake Total 1610 740 315.2 240 Output Total 400 1100 1100 Balance 1210 -360 -784.8 240 Meds/Results Medications: Active Medications Generic Name Dose Route Start Last Admin Trade Name Freq PRN Reason Stop Dose Admin Acetaminophen 650 mg 02/06/25 15:03 Acetaminophen 325 Mg Tablet PO Q4H PRN Mild Pain (1-3) or Fever Albuterol/Ipratropium 3 ml 02/08/25 16:00 02/10/25 07:51 Ipratropium 0.5 Mg/Albuterol Sulfate 2.5 Mg Ampul.Neb 3 Ml INHALATION 3 ml Q4HRT YOMAIRA Administration Amlodipine Besylate 5 mg 02/09/25 09:15 02/09/25 12:05 Amlodipine Besylate 5 Mg Tablet PO 5 mg DAILY YOMAIRA Administration Benzonatate 100 mg 02/06/25 16:24 Benzonatate 100 Mg Capsule PO TID PRN Cough Dextrose 12.5 gm 02/06/25 15:03 Dextrose 50% 25 Gm/50 Ml Syringe IV PUSH PRN PRN Hypoglycemia Protocol Enoxaparin Sodium 40 mg 02/07/25 09:00 02/08/25 07:56 Enoxaparin 40 Mg/0.4 Ml Syringe SUB-Q Not Given On Hold: 02/08/25 11:15 DAILY YOMAIRA Glucagon 1 mg 02/06/25 15:03 Glucagon For Inj 1 Mg Vial IM PRN PRN Hypoglycemia Protocol Glucose 15 gm 02/06/25 15:03 Glucose Oral Gel 15 Gm Of Glucse In 37.5 Gm Tube PO PRN PRN Hypoglycemia Protocol Guaifenesin 1,200 mg 02/08/25 21:00 02/09/25 20:21 Guaifenesin 12 Hr 600 Mg Tabcr PO 1,200 mg On Hold: 02/10/25 09:50 Q12HR YOMAIRA Administration Heparin Sodium (Porcine) 3,500 units 02/08/25 18:05 Heparin Sodium 5,000 Units/Ml Vial IV PUSH PRN PRN aPTT 55 - 70 seconds Heparin Sodium (Porcine) 4,000 units 02/08/25 22:06 Heparin Sodium 5,000 Units/Ml Vial IV PUSH PRN PRN aPTT less than 55 seconds Hydralazine HCl 25 mg 02/07/25 17:12 Hydralazine Hcl 25 Mg Tablet PO Q8H PRN Hypertensive Emergency Azithromycin 500 mg/ Sodium 250 mls @ 250 mls/hr 02/07/25 13:00 02/09/25 12:04 Chloride IVPB 02/10/25 13:59 250 mls/hr Q24H YOMAIRA Administration Dextrose 1,000 mls @ 100 mls/hr 02/06/25 15:03 Dextrose 5% 1,000 Ml IVPB PRN PRN Hypoglycemia Protocol Heparin Sodium/Dextrose 25,000 units in 250 mls @ 0 mls/hr 02/08/25 22:05 02/09/25 06:00 Heparin Sodium/D5w 100 Units/Ml IV CONT 0 units/hr On Hold: 02/09/25 07:23 .Q0M YOMAIRA 0 mls/hr Protocol Titration Cefepime HCl 2 gm/ Sodium 50 mls @ 100 mls/hr 02/10/25 09:00 Chloride IVPB Q24H YOMAIRA Insulin Aspart 2 - 5 units 02/06/25 17:00 02/09/25 16:09 Insulin Aspart (*Bkc) 100 Units/Ml SUB-Q Not Given TIDWM [facility] Protocol Insulin Aspart 2 units 02/09/25 12:00 02/09/25 16:09 Insulin Aspart (*Bkc) 100 Units/Ml SUB-Q Not Given TIDWM YOMAIRA Ondansetron HCl 4 mg 02/06/25 15:03 Ondansetron Inj 4 Mg/2 Ml Vial IV PUSH Q4H PRN Nausea Radiology Results: ITS Impressions Head CT 02/06/25 12:24 IMPRESSION: 1. No acute intracranial findings. Chest/Abdomen/Pelvis CTA 02/06/25 13:40 IMPRESSION: 1. No pulmonary embolism identified. 2. Moderate-sized bilateral pleural effusions. 3. Moderate-sized consolidations in the lower lobes and right middle lobe. Recommend follow-up to resolution. 4. Small to moderate size ground glass opacity scattered throughout both lungs most prominent in the upper lobes. Recommend follow-up to resolution. 5. Moderate-sized pericardial effusion. 6. Cholelithiasis. 7. Small amount of fluid and fat stranding scattered throughout the abdomen and pelvis for prominent in the right abdomen. 8. Concentric thickening of the cintron of the moderately distended bladder. Differential includes incomplete bladder wall distention, cystitis or sequelae from bladder outlet obstruction. 9. Moderate nonspecific anasarca. 10. Small bilateral fat-containing inguinal hernias, larger on the right which also contains fluid Renal Ultrasound 02/08/25 14:41 IMPRESSION: 1. No hydronephrosis. Venous Doppler Study 02/08/25 17:10 IMPRESSION: 1. Deep venous thrombosis at the bilateral popliteal veins. Findings were discussed with Polo Gee, the nurse caring for the patient, at 5:18 PM. Thoracentesis Ultrasound 02/09/25 14:20 IMPRESSION: 1. Successful ultrasound-guided thoracentesis yielding 1100 mL of straw-colored fluid. Chest X-Ray 02/10/25 09:31 IMPRESSION: 1. Developing interstitial pulmonary edema and/or pneumonitis. 2. Large right and small left pleural effusion with associated basilar atelectasis and/or airspace disease. 3. Left basilar linear interface probably skinfold rather than pneumothorax but continued attention on future x-rays. Labs Labs: Laboratory Results - last 24 hr 02/08/25 02/09/25 02/09/25 13:21 10:54 11:05 POC Capillary Glucose Fluid LDH 57 Pleural Fluid Source Pleural Color Pleural Appearance Pleural pH Pleural RBC Pleural Nuc Cells Pleural Neutrophils Pleural Lymphocytes Pleural Macrophages Pleural Total Protein Nasal MRSA (PCR) Not detected Vancomycin Trough 10.8 02/09/25 02/09/25 02/09/25 11:45 13:32 15:57 POC Capillary Glucose 167 H 153 H Fluid LDH Pleural Fluid Source Pleural fluid Pleural Color Yellow Pleural Appearance Cloudy Pleural pH 7.401 Pleural RBC < 2000 Pleural Nuc Cells 221 Pleural Neutrophils 13 Pleural Lymphocytes 15 Pleural Macrophages 72 Pleural Total Protein Cancelled Nasal MRSA (PCR) Vancomycin Trough 02/10/25 07:08 POC Capillary Glucose 141 H Fluid LDH Pleural Fluid Source Pleural Color Pleural Appearance Pleural pH Pleural RBC Pleural Nuc Cells Pleural Neutrophils Pleural Lymphocytes Pleural Macrophages Pleural Total Protein Nasal MRSA (PCR) Vancomycin Trough Quality VTE Prophylaxis VTE prophylaxis: pharmacologic ordered Hospitalist MIPS Advance Care Plan I have confirmed that the patient's Advanced Care Plan is present, code status is documented, or surrogate decision maker is listed in patient medical record.: Yes Medication Reconciliation I have utilized all available resources to obtain, update and review the patients current medications (includes all prescriptions, OTC, herbals, cannabis, and nutritional supplements).: Yes
--- NOTE | 2025-02-10 10:13 | PM.PNPUL ---
Progress Note: A&P Assessment and Plan (1) Pleural effusion: Code(s): J90 - Pleural effusion, not elsewhere classified Status: Acute Assessment and Plan: Patient presents with shortness of breath, large free flowing bilateral pleural effusions, anasarca, afebrile, white blood cell count 5.6, BNP 78803, procalcitonin 0.1, acute on chronic hypercarbic and hypoxemic respiratory failure, CT angiogram of the chest with large bilateral pleural effusions and adjacent compressive atelectasis. subsequent echocardiogram shows LVEF 45-50% with grade 2 diastolic dysfunction. Etiology of bilateral pleural effusions includes: Fluid overload from CHF, and possible pneumonia. 02/08/25: 02/08/2025: The patient has just completed his right thoracentesis with 1100 mL of straw-colored fluid. He notices no difference in his breathing. He states that his cough is the same his presentation and his phlegm is now thick. Creatinine 2.57. He is afebrile. Patient is currently on 6 L Venti mask with saturations 94%. ABG is 7.30/53/64. Weight today is 81.4 kg. Patient's antibiotics were changed to vancomycin, cefepime and Flagyl for worsening oxygenation and lethargy. The patient tells me he could not tolerate the pressures on BiPAP and I placed him on a noninvasive ventilator with the AVAPS mode and adjusted the settings to comfort resulting in a rate of 14, tidal volume 500, EPAP 5, minimal inspiratory pressure 6, maximal inspiratory pressure 25, inspiratory time 1.2, rise of 5 which is the slowest and 36% FiO2. Saturations were 98%. Later in the day patient had a right thoracentesis: had 1100 mL of straw colored fluid. pH is 7.44. Nucleated cells 114 with a differential of neutrophils 15, lymphocytes 45, macrophages 38, mesothelial cells 2. Pleural LDH 57: Serum LDH 187 with ratio 0.30. microbiology, and cytology to be sent. Chest x-ray post procedure with improved but persistent right pleural effusion and large left pleural effusion. This represents a transudative, noninfected lymphocytic pleural effusion plan: Agree with thoracentesis to assess for transudate versus exudate. Patient had 1100 mL of straw colored fluid. pH is 7.44. Nucleated cells 114 with a differential of neutrophils 15, lymphocytes 45, macrophages 38, mesothelial cells 2. Full set of chemistries, cell count, microbiology, and cytology to be sent. Chest x-ray with improved but persistent right pleural effusion and large left pleural effusion. Patient has acute kidney injury and I think it will be difficult to aggressively diurese him as we are holding Lasix. Will perform left thoracentesis on 11/09/2024. I think it is unlikely that this is bacterial pneumonia. Patient was treated with ceftriaxone and azithromycin on from 02/06 through 02/08 and on 02/08 he was changed to vancomycin, cefepime and Flagyl. Will continue today. Blood cultures are negative, COVID influenza RSV RT PCR assay negative, MRSA swab pending. I have ordered respiratory pathogen panel, urine for Legionella, urine for pneumococcal and serum mycoplasma IgM. patient with worsening GERONIMO and will discontinue Lasix at this time. 02/09/2025: Overall the patient tells me he is slowly improving. He has 50% back to his normal. He has rest shortness of breath. He has a increased cough compared to baseline with a little bit of phlegm and no hemoptysis. He is afebrile. When I enter the room he was on 4 L nasal cannula saturations 95%. I decreased him to 2 L nasal cannula saturations were 94%. White blood cell count 6.5, creatinine 3.14, BUN 64, bicarbonate 27. Yesterday he diuresed 610 mL. Cumulative he is positive 1.8 L since admission. His weight is 79.9 kg today. Chest x-ray this morning shows some increased right pleural effusion compared with post thoracentesis x-ray, large left pleural effusion. Plan: patient remains with large left pleural effusion and acute kidney injury limiting diuresis. Agree with left thoracentesis today. I think it is unlikely that this is bacterial pneumonia. Patient was treated with ceftriaxone and azithromycin on from 02/06 through 02/08 and on 02/08 he was changed to vancomycin, cefepime and Flagyl. Will discontinue flagyl today. Continue vancomycin and cefepime pending his left thoracentesis. If this does not look like an empyema then can deescalate to cover his Serratia in his urine. Patient has refused MRSA nasal swab. Blood cultures are negative, COVID influenza RSV RT PCR assay negative. I have ordered respiratory pathogen panel (patient refused swab), urine for Legionella, urine for pneumococcal and serum mycoplasma IgM pending. Later in the day the patient had a left thoracentesis: had 1100 mL of straw colored fluid. pH is 7.41. G stain with no organisms seen. Nucleated cells 221 with differential neutrophils 13%, lymphocytes 15%, macrophages 72%. Full set of chemistries, cell count, microbiology, and cytology sent. Chest x-ray post procedure with improved but persistent small pleural effusion and moderate right pleural effusion. 02/10/2025: Patient tells me that he felt improved after his left thoracentesis yesterday. Currently he feels about the same as he did yesterday, 50% back to his breathing baseline. He has a little cough and phlegm with no hemoptysis. When I ask him to cough he is debilitated, weak and has an and ineffective ability to cough and clear phlegm. When I enter the room he was on 3 L nasal cannula saturations 96%. I decreased him to room air and after 4 minutes he desaturated to 83%. I placed him on 2 L nasal cannula saturations were 93%. White blood cell count 6.5. Yesterday he was -360 mL and cumulative he is positive 1.2 mL since admission. His weight today is 79.9. Chest x-ray today shows a very small left pleural effusion and a moderate right pleural effusion with congestion. Plan: Right pleural effusion is transudative likely related to fluid overload from cardiac and or renal etiologies. Agree with as aggressive diuresis as tolerated by his cardiac and renal systems per Cardiology and hospitalist teams. This is limited by his renal failure. He has no evidence of right or left empyema and does not require antibiotics from a pulmonary perspective. Patient can be discharged from a pulmonary perspective on these pulmonary medications: Anoro Ellipta 62.5-25 at 1 puff q.day Rescue albuterol 2 puffs q.4 hours p.r.n. shortness of breath or wheezing Guaifenesin 1200 mg p.o. b.i.d. p.r.n. congestion Oxygen at rest and with activity per formal home O2 assessment on the day of discharge When he naps or sleeps oxygen 2 L nasal cannula Tobacco cessation. Follow up with his PCP with outpatient PFTs to assess severity of COPD and if he is willing, referral to pulmonary rehabilitation. Discussed with Lindsey Whitley, will sign off, call with questions. (2) Acute on chronic respiratory failure with hypoxia and hypercapnia: Code(s): J96.21 - Acute and chronic respiratory failure with hypoxia; J96.22 - Acute and chronic respiratory failure with hypercapnia Status: Acute Assessment and Plan: Patient reportedly is not on any home oxygen. ABG on presentation on 3 L nasal cannula the pH of 7.31/64/73. He was initially placed on BiPAP but only tolerated this for 1 hour. 02/08/2025: Patient is currently on 6 L Venti mask with saturations 94%. ABG is 7.30/53/64. The patient tells me he could not tolerate the pressures on BiPAP and I placed him on a noninvasive ventilator with the AVAPS mode and adjusted the settings to comfort resulting in a rate of 14, tidal volume 500, EPAP 5, minimal inspiratory pressure 6, maximal inspiratory pressure 25, inspiratory time 1.2, rise of 5 which is the slowest and 36% FiO2. Saturations were 98%. plan: Will continue noninvasive ventilation with the AVAPS mode p.r.n. during the day and at night. I will check an ABG prior to removal in the morning. Will treat patient for fluid overload and possible pneumonia and once these issues are resolved will reassess for chronic hypercarbic respiratory failure. Goal saturation 90-94%. Adjust oxygen accordingly. Patient is do not resuscitate, do not intubate. 02/09/25: patient could only tolerate the hospital noninvasive ventilator with the settings titrated to comfort as above for 5 minutes last night and said he could not wear it. He said the machine was not breathing naturally for him and he would not be able to wear a machine like that at home. Patient had an ABG on 10 L nasal cannula at the end of the night with pH of 7.25/55/62. Plan: Patient states he cannot tolerate noninvasive ventilation and will not wear this at home. Will perform overnight oximetry on 2 L tonight. 02/10/25: Patient had an overnight oximetry on 2 L nasal cannula and at times he would pull the oxygen off. Recording duration 2 hours and 55 minutes. Average saturation 91%. Low saturation 79%. Time with saturation less than or equal to 88% was 8 minutes. Oxygen desaturation index 2.5. At the beginning of the night he had a steady tracing with saturations 92-93% and later in the night he had intermittant dips likely correlating to him taking the oxygen off. Plan: I would continue 2 L nasal cannula at night. Patient should have a formal home O2 assessment prior to discharge. (3) Tobacco dependence: Code(s): F17.200 - Nicotine dependence, unspecified, uncomplicated Status: Acute Assessment and Plan: Patient with 58 pack year tobacco use, currently smoking. He has no known diagnosis of COPD. There is no bullous emphysema on his CT scan of the chest on 02/06/2025. I have no PFTs. He did complain of wheezing at home. He had a change in his phlegm. He says that his phlegm is thick and difficult to expectorate. I am not convinced he had a COPD exacerbation and suspect his respiratory issues related to his bilateral large pleural effusions and fluid overload. 02/08/2025: Patient has no wheezing today. He has received 3 days of prednisone 40 mg a day and will discontinue. I will increase the frequency of his nebulizers from q.6 hours to q.4 hours. I will increase his guaifenesin from 600 p.o. b.i.d. to 1200 p.o. b.i.d.. I will send an alpha 1 anti trypsin genotype and level on 02/09/2025. 02/09/25: Patient has no wheezes today. States his breathing is slowly improving. Plan: Continue DuoNebs q.4 hours and guaifenesin 1200 p.o. b.i.d.. Continue Cornet flutter valve. Alpha 1 anti trypsin level pending. 02/10/25: No wheezes today. Plan: The patient may or may not have COPD. He will need outpatient PFTs to assess for fixed obstruction. In the meantime will discharge him on Anoro Ellipta 62.5-25 at 1 puff b.i.d.. he has a poor ineffective cough and will continue guaifenesin 1200 mg p.o. b.i.d. and the Cornet flutter valve. Tobacco cessation provided. Subjective Date/time seen: 02/10/25 10:13 Interval history: 02/08/2025: This is a new pulmonary consult for pleural effusions and pneumonia. 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 Patient tells me he has no formal diagnosis of COPD. Patient smoked tobacco since age 11 to current at 1 pack per day for a total of 58 pack years. He was exposed to secondhand smoke currently. 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 He denies sand blasting, welding, professional painting, steel rubber mill tender, [employer] work or coal mining. Since his right BKA on 11/11/2022 he does minimal walking. He does have bilateral lower extremity prosthesis but he says he just has difficulty walking with both of these. 02/06/2025: Patient presented to the emergency department with 2-3 weeks of weakness, 1 week history of shortness of breath, cough and 1-2 days of confusion. In the emergency department his blood pressure is 170/94, heart rate 103, respirations 19, on 3 L nasal cannula saturations 96%. He had decreased breath sounds bilaterally. White blood cell count 5.6, creatinine 1.52, BUN 34, bicarbonate 30, BNP 63037, procalcitonin 0.1, D-dimer 0.96. 3 L ABG 7.31/64/ 73. COVID influenza RSV RT PCR assay negative, UA with white blood cell count 51-100, no bacteria. CT angiogram of the chest showed no PE, large right greater than left pleural effusions with adjacent compressive atelectasis, anasarca. Patient was treated for fluid overload, pneumonia and COPD exacerbation with IV Lasix, ceftriaxone and azithromycin and prednisone and DuoNebs. He was placed on BiPAP but only use this for approximately 1 hour and then refused. 02/07/2025: Patient was HIV negative, white blood cell count 6.2, creatinine 1.61, echocardiogram with LVEF 45-50%, grade 2 diastolic dysfunction, normal right ventricular size, normal right atrial size, no PASP calculated. Trivial pericardial effusion. Saturations on 4 L nasal cannula 89-95%. 02/08/2025: The patient has just completed his right thoracentesis with 1100 mL of straw-colored fluid. He notices no difference in his breathing. He states that his cough is the same his presentation and his phlegm is now thick. Creatinine 2.57. He is afebrile. Patient is currently on 6 L Venti mask with saturations 94%. ABG is 7.30/53/64. Weight today is 81.4 kg. Patient's antibiotics were changed to vancomycin, cefepime and Flagyl for worsening oxygenation and lethargy. The patient tells me he could not tolerate the pressures on BiPAP and I placed him on a noninvasive ventilator with the AVAPS mode and adjusted the settings to comfort resulting in a rate of 14, tidal volume 500, EPAP 5, minimal inspiratory pressure 6, maximal inspiratory pressure 25, inspiratory time 1.2, rise of 5 which is the slowest and 36% FiO2. Saturations were 98%. He said this was as comfortable as the machine could be and he would try to wear this later tonight. Later in the day patient had a right thoracentesis: had 1100 mL of straw colored fluid. pH is 7.44. Nucleated cells 114 with a differential of neutrophils 15, lymphocytes 45, macrophages 38, mesothelial cells 2. Pleural LDH 57: Serum LDH 187 with ratio 0.30. microbiology, and cytology to be sent. Chest x-ray post procedure with improved but persistent right pleural effusion and large left pleural effusion. This represents a transudative, noninfected lymphocytic pleural effusion 02/09/2025: Overall the patient tells me he is slowly improving. He has 50% back to his normal. He has rest shortness of breath. He has a increased cough compared to baseline with a little bit of phlegm and no hemoptysis. He is afebrile. When I enter the room he was on 4 L nasal cannula saturations 95%. I decreased him to 2 L nasal cannula saturations were 94%. White blood cell count 6.5, creatinine 3.14, BUN 64, bicarbonate 27. Yesterday he diuresed 610 mL. Cumulative he is positive 1.8 L since admission. His weight is 79.9 kg today. Chest x-ray this morning shows some increased right pleural effusion compared with post thoracentesis x-ray, large left pleural effusion. patient could only tolerate the hospital noninvasive ventilator with the settings titrated to comfort as above for 5 minutes last night and said he could not wear it. He said the machine was not breathing naturally for him and he would not be able to wear a machine like that at home. Patient had an ABG on 10 L nasal cannula at the end of the night with pH of 7.25/55/62. Later in the day the patient had a left thoracentesis: had 1100 mL of straw colored fluid. pH is 7.41. G stain with no organisms seen. Nucleated cells 221 with differential neutrophils 13%, lymphocytes 15%, macrophages 72%. Full set of chemistries, cell count, microbiology, and cytology sent. Chest x-ray post procedure with improved but persistent small pleural effusion and moderate right pleural effusion. 02/10/2025: Patient tells me that he felt improved after his left thoracentesis yesterday. Currently he feels about the same as he did yesterday, 50% back to his breathing baseline. He has a little cough and phlegm with no hemoptysis. When I ask him to cough he is debilitated, weak and has an and ineffective ability to cough and clear phlegm. When I enter the room he was on 3 L nasal cannula saturations 96%. I decreased him to room air and after 4 minutes he desaturated to 83%. I placed him on 2 L nasal cannula saturations were 93%. White blood cell count 6.5. Yesterday he was -360 mL and cumulative he is positive 1.2 mL since admission. His weight today is 79.9. Chest x-ray today shows a very small left pleural effusion and a moderate right pleural effusion with congestion. Patient had an overnight oximetry on 2 L nasal cannula and at times he would pull the oxygen off. Recording duration 2 hours and 55 minutes. Average saturation 91%. Low saturation 79%. Time with saturation less than or equal to 88% was 8 minutes. Oxygen desaturation index 2.5. At the beginning of the night he had a steady with saturations 92-93% and later in the night he had tips likely correlating to him taking the oxygen off. DATA: 02/07/25: Echo Summary 1. Complete two-dimensional, color flow and Doppler transthoracic echocardiogram is performed. 2. Concentric left ventricular hypertrophy with mild systolic dysfunction, inferior/posterior hypokinesia. 3. Grade 2 diastolic noncompliance. 4. Mild mitral regurgitation. 5. Mildly enlarged ascending aorta, 4.2 cm. 6. Trivial posterior pericardial effusion. Right Ventricle Right ventricular chamber dimension is normal. Right Atria Right atrial chamber dimension is normal. 02/06/25: Exam: CT chest with contrast Clinical History: [Hypoxia. ] Comparison: [ ] Technique: Multiple axial CT images of the chest, abdomen and pelvis with IV contrast. Sagittal and coronal reformatted images were obtained. FINDINGS: Lungs and pleura: [ Moderate-sized bilateral pleural effusions.] No pulmonary embolism identified. No pneumothorax. Moderate-sized consolidations in the lower lobes and right middle lobe. Small to moderate size ground glass opacity scattered throughout both lungs most prominent in the upper lobes. Mediastinum and pulmonary steffany: [ No mass or adenopathy.] Axillary/intramammary and supraclavicular: [ No mass or adenopathy.] Heart and great vessels: [ Normal heart size.[ [ Moderate-sized pericardial effusion.] [ No aneurysm.] Chest Wall: [ Unremarkable.] Liver: [ No mass.] [ No intrahepatic biliary duct dilatation.] Gallbladder: [Cholelithiasis.No wall thickening.] Common bile duct: [ Normal caliber.] [ No stones.] Spleen: [ The spleen is not enlarged. Spleen is slightly heterogeneous. Pancreas: [ No mass. No pancreatic fluid collection.] Adrenals: [ No masses.] Kidneys: [ No masses. No hydronephrosis.][ There are a few too small to characterize low-attenuation lesions in the kidneys. There is a 2 cm cyst in the left kidney.] There are a few tiny nonobstructing renal stones. Lymph nodes: [ No adenopathy in the abdomen or pelvis.] Stomach, small bowel and colon: [ No bowel wall thickening or obstruction.] Peritoneum cavity: Small amount of fluid and fat stranding scattered throughout the abdomen and pelvis for prominent in the right abdomen. Bladder: Concentric thickening of the cintron of the moderately distended bladder. Differential includes incomplete bladder wall distention, cystitis or sequelae from bladder outlet obstruction. Prostate gland is mildly enlarged and partially calcified. Osseous structures: [ No acute fracture or destructive lesion.] [ Multilevel degenerative change in the visualized spine.] Abdominal aorta: [ No aneurysm.] Additional findings: Moderate nonspecific anasarca. Small bilateral fat-containing inguinal hernias, larger on the right which also contains fluid. IMPRESSION: 1. No pulmonary embolism identified. 2. Moderate-sized bilateral pleural effusions. 3. Moderate-sized consolidations in the lower lobes and right middle lobe. Recommend follow-up to resolution. 4. Small to moderate size ground glass opacity scattered throughout both lungs most prominent in the upper lobes. Recommend follow-up to resolution. 5. Moderate-sized pericardial effusion. 6. Cholelithiasis. 7. Small amount of fluid and fat stranding scattered throughout the abdomen and pelvis for prominent in the right abdomen. 8. Concentric thickening of the cintron of the moderately distended bladder. Differential includes incomplete bladder wall distention, cystitis or sequelae from bladder outlet obstruction. 9. Moderate nonspecific anasarca. 10. Small bilateral fat-containing inguinal hernias, larger on the right which also contains fluid 06/10/2020 EXAMINATION: XR chest 2V INDICATION: Chest pain TECHNIQUE: AP and lateral views of the chest are obtained. COMPARISON: 06/18/2019 FINDINGS: The lungs are free of acute opacities. There is no pleural effusion or pneumothorax. The cardiomediastinal silhouette is normal. There is moderate thoracic spondylosis. IMPRESSION: 1. No acute cardiopulmonary abnormality. Review of Systems Constitutional: Constitutional: Reports no additional constitutional complaints Eyes: Eyes: Reports no additional eye complaints ENT: Reports system reviewed and no additional complaints, except as documented Cardiovascular: Cardiovascular: Reports no additional cardiovascular complaints Respiratory: Respiratory: Reports no additional respiratory complaints Gastrointestinal: Gastrointestinal: Reports no additional gastrointestinal complaints Musculoskeletal: Musculoskeletal: Reports no additional musculoskeletal complaints Neurologic: Reports system reviewed and no additional complaints, except as documented Psychiatric: Psychiatric: Reports no additional psychiatric complaints Endocrine: Endocrine: Reports no additional endocrine complaints Hematologic/Lymphatic: Hematologic/Lymphatic: Reports no additional hematologic/lymphatic complaints Allergic/Immunologic: Allergic/Immunologic: Reports no additional allergic/immunologic complaints Exam Const: General: cooperative, healthy appearing and comfortable Orientation/consciousness: oriented to person, oriented to place and oriented to time Other: A&O x3. HENMT: Head: normal to inspection Ears: hearing grossly normal bilaterally Eyes: General: appearance normal, both eyes and all related structures Neck: Neck: normal visual inspection Chest: Chest palpation & inspection: normal inspection of the chest Resp: Effort & Inspection: normal respiratory effort and able to speak in complete sentences Auscultation: no crackles, no rales, no rhonchi, no wheezes and diminished lung sounds Other: Decreased breath sounds right, no wheezing. Cardio: Jugular venous distension: no JVD GI: Inspection: normal to inspection Skin: General skin exam: normal color Neuro: General: oriented to person, oriented to place and oriented to time Extrem: General: normal to inspection Other: Bilateral BKA a days. No thigh edema Psych: Appearance: grossly normal Objective Data Vital Signs Vital Signs: Vital Signs - 24 hr 02/09/25 12:03 02/09/25 12:11 02/09/25 16:00 Temperature Pulse Rate 94 94 92 Respiratory Rate 16 16 Blood Pressure Pulse Oximetry Oxygen Delivery Oxygen Flow Rate 02/09/25 16:20 02/09/25 19:46 02/09/25 19:49 Temperature 36.4 C L Pulse Rate 93 93 Respiratory Rate 18 20 Blood Pressure 125/65 Pulse Oximetry 94 92 91 Oxygen Delivery High Flow Nasal Cannula High Flow Nasal Cannula Oxygen Flow Rate 3 02/09/25 19:49 02/09/25 19:55 02/09/25 20:00 Temperature 36.9 C Pulse Rate 93 91 92 Respiratory Rate 20 17 18 Blood Pressure 131/70 Pulse Oximetry 92 Oxygen Delivery Oxygen Flow Rate 02/09/25 20:00 02/09/25 20:00 02/09/25 22:25 Temperature Pulse Rate 88 90 Respiratory Rate Blood Pressure Pulse Oximetry 95 95 Oxygen Delivery Nasal Cannula High Flow Nasal Cannula Oxygen Flow Rate 3 3 02/09/25 22:30 02/10/25 00:00 02/10/25 03:53 Temperature Pulse Rate 78 93 Respiratory Rate 22 H Blood Pressure Pulse Oximetry 92 Oxygen Delivery High Flow Nasal Cannula Oxygen Flow Rate 2 02/10/25 04:00 02/10/25 04:05 02/10/25 07:51 Temperature Pulse Rate 94 91 Respiratory Rate 20 Blood Pressure Pulse Oximetry 90 Oxygen Delivery High Flow Nasal Cannula Oxygen Flow Rate 3 02/10/25 07:51 02/10/25 08:00 02/10/25 08:05 Temperature 36.5 C Pulse Rate 97 95 93 Respiratory Rate 20 20 20 Blood Pressure 153/90 H Pulse Oximetry 87 L Oxygen Delivery Oxygen Flow Rate Intake/Output Intake/Output: Intake & Output 02/07/25 02/08/25 02/09/25 02/10/25 23:59 23:59 23:59 23:59 Intake Total 1610 740 315.2 240 Output Total 400 1100 1100 Balance 1210 -729 -634.8 240 Meds/Results Medications: Active Medications Generic Name Dose Route Start Last Admin Trade Name Freq PRN Reason Stop Dose Admin Acetaminophen 650 mg 02/06/25 15:03 Acetaminophen 325 Mg Tablet PO Q4H PRN Mild Pain (1-3) or Fever Albuterol/Ipratropium 3 ml 02/08/25 16:00 02/10/25 07:51 Ipratropium 0.5 Mg/Albuterol Sulfate 2.5 Mg Ampul.Neb 3 Ml INHALATION 3 ml Q4HRT OMI Administration Amlodipine Besylate 5 mg 02/09/25 09:15 02/09/25 12:05 Amlodipine Besylate 5 Mg Tablet PO 5 mg DAILY OMI Administration Benzonatate 100 mg 02/06/25 16:24 Benzonatate 100 Mg Capsule PO TID PRN Cough Dextrose 12.5 gm 02/06/25 15:03 Dextrose 50% 25 Gm/50 Ml Syringe IV PUSH PRN PRN Hypoglycemia Protocol Enoxaparin Sodium 40 mg 02/07/25 09:00 02/08/25 07:56 Enoxaparin 40 Mg/0.4 Ml Syringe SUB-Q Not Given On Hold: 02/08/25 11:15 DAILY OMI Glucagon 1 mg 02/06/25 15:03 Glucagon For Inj 1 Mg Vial IM PRN PRN Hypoglycemia Protocol Glucose 15 gm 02/06/25 15:03 Glucose Oral Gel 15 Gm Of Glucse In 37.5 Gm Tube PO PRN PRN Hypoglycemia Protocol Guaifenesin 1,200 mg 02/08/25 21:00 02/09/25 20:21 Guaifenesin 12 Hr 600 Mg Tabcr PO 1,200 mg On Hold: 02/10/25 09:50 Q12HR OMI Administration Heparin Sodium (Porcine) 3,500 units 02/08/25 18:05 Heparin Sodium 5,000 Units/Ml Vial IV PUSH PRN PRN aPTT 55 - 70 seconds Heparin Sodium (Porcine) 4,000 units 02/08/25 22:06 Heparin Sodium 5,000 Units/Ml Vial IV PUSH PRN PRN aPTT less than 55 seconds Hydralazine HCl 25 mg 02/07/25 17:12 Hydralazine Hcl 25 Mg Tablet PO Q8H PRN Hypertensive Emergency Azithromycin 500 mg/ Sodium 250 mls @ 250 mls/hr 02/07/25 13:00 02/09/25 12:04 Chloride IVPB 02/10/25 13:59 250 mls/hr Q24H OMI Administration Dextrose 1,000 mls @ 100 mls/hr 02/06/25 15:03 Dextrose 5% 1,000 Ml IVPB PRN PRN Hypoglycemia Protocol Heparin Sodium/Dextrose 25,000 units in 250 mls @ 0 mls/hr 02/08/25 22:05 02/09/25 06:00 Heparin Sodium/D5w 100 Units/Ml IV CONT 0 units/hr On Hold: 02/09/25 07:23 .Q0M OMI 0 mls/hr Protocol Titration Cefepime HCl 2 gm/ Sodium 50 mls @ 100 mls/hr 02/10/25 09:00 Chloride IVPB Q24H [facility] Insulin Aspart 2 - 5 units 02/06/25 17:00 02/09/25 16:09 Insulin Aspart (*Bkc) 100 Units/Ml SUB-Q Not Given TIDWM [facility] Protocol Insulin Aspart 2 units 02/09/25 12:00 02/09/25 16:09 Insulin Aspart (*Bkc) 100 Units/Ml SUB-Q Not Given TIDWM [facility] Ondansetron HCl 4 mg 02/06/25 15:03 Ondansetron Inj 4 Mg/2 Ml Vial IV PUSH Q4H PRN Nausea Radiology Results: ITS Impressions Head CT 02/06/25 12:24 IMPRESSION: 1. No acute intracranial findings. Chest/Abdomen/Pelvis CTA 02/06/25 13:40 IMPRESSION: 1. No pulmonary embolism identified. 2. Moderate-sized bilateral pleural effusions. 3. Moderate-sized consolidations in the lower lobes and right middle lobe. Recommend follow-up to resolution. 4. Small to moderate size ground glass opacity scattered throughout both lungs most prominent in the upper lobes. Recommend follow-up to resolution. 5. Moderate-sized pericardial effusion. 6. Cholelithiasis. 7. Small amount of fluid and fat stranding scattered throughout the abdomen and pelvis for prominent in the right abdomen. 8. Concentric thickening of the cintron of the moderately distended bladder. Differential includes incomplete bladder wall distention, cystitis or sequelae from bladder outlet obstruction. 9. Moderate nonspecific anasarca. 10. Small bilateral fat-containing inguinal hernias, larger on the right which also contains fluid Renal Ultrasound 02/08/25 14:41 IMPRESSION: 1. No hydronephrosis. Venous Doppler Study 02/08/25 17:10 IMPRESSION: 1. Deep venous thrombosis at the bilateral popliteal veins. Findings were discussed with Polo Gee, the nurse caring for the patient, at 5:18 PM. Thoracentesis Ultrasound 02/09/25 14:20 IMPRESSION: 1. Successful ultrasound-guided thoracentesis yielding 1100 mL of straw-colored fluid. Chest X-Ray 02/10/25 09:31 IMPRESSION: 1. Developing interstitial pulmonary edema and/or pneumonitis. 2. Large right and small left pleural effusion with associated basilar atelectasis and/or airspace disease. 3. Left basilar linear interface probably skinfold rather than pneumothorax but continued attention on future x-rays. Labs Labs: Laboratory Results - last 24 hr 02/08/25 02/09/25 02/09/25 13:21 10:54 11:05 POC Capillary Glucose Fluid LDH 57 Pleural Fluid Source Pleural Color Pleural Appearance Pleural pH Pleural RBC Pleural Nuc Cells Pleural Neutrophils Pleural Lymphocytes Pleural Macrophages Pleural Total Protein Nasal MRSA (PCR) Not detected Vancomycin Trough 10.8 02/09/25 02/09/25 02/09/25 11:45 13:32 15:57 POC Capillary Glucose 167 H 153 H Fluid LDH Pleural Fluid Source Pleural fluid Pleural Color Yellow Pleural Appearance Cloudy Pleural pH 7.401 Pleural RBC < 2000 Pleural Nuc Cells 221 Pleural Neutrophils 13 Pleural Lymphocytes 15 Pleural Macrophages 72 Pleural Total Protein Cancelled Nasal MRSA (PCR) Vancomycin Trough 02/10/25 07:08 POC Capillary Glucose 141 H Fluid LDH Pleural Fluid Source Pleural Color Pleural Appearance Pleural pH Pleural RBC Pleural Nuc Cells Pleural Neutrophils Pleural Lymphocytes Pleural Macrophages Pleural Total Protein Nasal MRSA (PCR) Vancomycin Trough
[2025-02-10 10:36] LABS: Hematocrit 36.6 % (42.0-52.0); Hemoglobin 11.2 g/dL (14.0-18.0); Immature Granulocyte Percent A 0.5 % (0-0.5); Immature Platelet Fraction Pct 8.2 % (0.9-11.2); Lymphocytes Absolute Auto 0.43 K/mm3 (0.9-3.2); Mean Corpuscular HGB Conc 30.6 g/dl (32-36); Mean Corpuscular Hemoglobin 26.6 pg (26-34); Mean Corpuscular Volume 86.9 fl (80-100); Nucleated Red Blood Cells Absolute Auto 0.000 K/mm3 (0.0-0.012); Nucleated Red Blood Cells Perc 0.0 % (0.0-0.2); Platelet Count Result 118 k/mm3 (150-375); Red Blood Count 4.21 M/mm3 (4.6-6.20); White Blood Count 6.4 K/mm3 (4.5-10.0)
[2025-02-10 11:19] LABS: Albumin Level 3.2 g/dL (3.5-5.1); Anion Gap 7 mmol/L (4-12); Blood Urea Nitrogen 71 mg/dL (9-20); Calcium 7.9 mg/dL (8.4-10.2); Carbon Dioxide 27 mmol/L (22-30); Chloride 102 mmol/L (98-107); Estimated CRCL calculation 22 ml/min; Estimated Glomerular Filt Rate 18; Glucose 196 mg/dL (65-110); Potassium 4.6 mmol/L (3.4-5.0); Sodium 136 mmol/L (137-145)
[2025-02-10 12:08] LABS: Glucose, Body Fluid 215 mg/dL (.)
[2025-02-10 12:08] LABS: Albumin, Body Fluid 1.0 g/dL (Not Estab.); Glucose, Body Fluid 207 mg/dL (.); LD, Body Fluid 60 IU/L (.); Triglycerides, Body Fluid 10 mg/dL (Not Estab.)
--- NOTE | 2025-02-10 13:16 | P.CONNP_ITS ---
Assessment and Plan Assessment and plan (1) Acute kidney injury: Code(s): N17.9 - Acute kidney failure, unspecified Status: Acute Assessment and Plan: * as noted since hospitalization (admission creatinine 1.52mg/dl) * significant rise noted on 02/08 (1.61 --> 2.57mg/dL) * only previous labs to compare are from October 2022 - creatinine normal at that time (0.80mg/dL) * unclear if a component of chronic renal insufficiency/CKD at baseline...but risk factors noted: * suboptimal diabetes control complicated by PVD + diabetic retinopathy * hypertension * CHF * smoker * history of polysubstance abuse * hepatitis C * suspect multifactorial etiology: * fluctuating hemodynamics * infection/sepsis (UTI +/- pneumonia) * CHF exacerbation * IV diuretic therapy * contrast exposure (CTA on 02/06) - suspect this is reason for rise in creatinine on 02/08 * hypoxia * other (?) * evaluation to date noted: * renal ultrasound w/o obstruction * CPK normal * UA suggest infection * urine studies ordered (not done yet) * follow-up on urine testing * no critical electrolytes but difficult to assess if adequate urine output * consider serological evaluation * follow trend of repeat labs and UOP (2) Acute hypoxic respiratory failure: Code(s): J96.01 - Acute respiratory failure with hypoxia Status: Acute Assessment and Plan: * complicated by hypercapnia (as noted by ABGs) * does not wear supplemental oxygen at baseline * due to several issues: * bilateral pleural effusions * CHF exacerbation * volume overload * pneumonia (?) * underlying reactive airway disease/COPD (?) -- although no evidence by imaging * pericardial effusion * complicated by extensive smoking history * s/p thoracentesis x 2 (left on 02/09 and right on 02/08) * Pulmonary following with recommendations noted * unable to tolerated AVAPS * continue nebulizer treatments/inhalers * wean O2 as tolerated * continue therapy as outlined (3) Congestive heart failure: Qualifiers: Heart failure chronicity: acute Heart failure type: unspecified Q ualified Code(s): I50.9 - Heart failure, unspecified Code(s): I50.9 - Heart failure, unspecified Status: Suspected Assessment and Plan: * suspected on admission * Echo (on 02/07) noted: * left ventricular systolic function is mildly reduced, estimated at 45 - 50% (inferior/posterior hypokinesia) * left ventricular diastolic function is grade II diastolic dysfunction * mild aortic valve sclerosis. * mild mitral regurgitation * mildly enlarged ascending aorta, 4.2cm * rivial posterior pericardial effusion * elevated BNP noted * imaging noted on admission noted: * CXR: CHF. Superimposed probable pneumonia * CTA C/A/P: no pulmonary embolism identified; moderate-sized bilateral pleural effusions; moderate-sized consolidations in the lower lobes and right middle lobe; small to moderate size ground glass opacity scattered throughout both lungs most prominent in the upper lobes; moderate-sized pericardial effusion. * initiated on IV diuresis but on hold due to #1 * if renal function stabilizes/improves, will consider restart of diuretics (4) Pleural effusion: Code(s): J90 - Pleural effusion, not elsewhere classified Status: Acute Assessment and Plan: * as noted by admission imaging * s/p left (on 02/09) and right (on 02/08) thoracentesis * 1100cc removed on right * 1100cc removed on left * consider re-attempt at diuresis if renal function improves * alternatively, consider repeat thoracentesis * follow repeat imaging (5) Pneumonia: Qualifiers: Laterality: bilateral Lung location: unspecified part of lung P neumonia type: due to unspecified organism Qualified Code(s): J18.9 - Pneumonia, unspecified organism Code(s): J18.9 - Pneumonia, unspecified organism Status: Acute Assessment and Plan: * admission CXR and CT chest suggestive * however, no fevers and normal WBC; but noted hypoxia * viral testing for influenza/RSV/COVID negative * extended respiratory viral pathogen panel negative as well * follow culture data * on antibiotics (6) UTI (urinary tract infection): Qualifiers: Hematuria presence: with hematuria Urinary tract infection type: acute cystitis Qualified Code(s): N30.01 - Acute cystitis with hematuria Code(s): N39.0 - Urinary tract infection, site not specified Status: Acute Assessment and Plan: * admission UA suggestive * urine culture with Serratia marcescens * on antibiotics (7) Paroxysmal atrial fibrillation: Code(s): I48.0 - Paroxysmal atrial fibrillation Status: Chronic Assessment and Plan: * known history * rate controlled * off anticoagulation for interventions (thoracenteses) * resume if no further invasive procedures planned (8) Anemia: Code(s): D64.9 - Anemia, unspecified Status: Acute Assessment and Plan: * presumably secondary to GERONIMO and acute illness * no need for YOHANA at this time * follow trend of H/H (9) HTN (hypertension): Qualifiers: Hypertension type: primary hypertension Qualified Code(s): I10 - Essential (primary) hypertension Code(s): I10 - Essential (primary) hypertension Status: Chronic Assessment and Plan: * elevated on admission * no outpatient medications * started on medications during this hospitalization * follow trend of hemodynamics (10) Diabetes: Qualifiers: Diabetes mellitus complication status: without complication Diabetes mellitus correction insulin use: with intermodal dispatcher use Diabetes mellitus type: type 2 Qualified Code(s): E11.9 - Type 2 diabetes mellitus without complications; Z79.4 - assisted (current) use of insulin Code(s): E11.9 - Type 2 diabetes mellitus without complications Status: Chronic Assessment and Plan: * suboptimal control at baseline * was not taking any outpatient medications * follow accu-cheks * glycemic control per hospitalist I will continue to follow the patient with you while he remains hospitalized and make further recommendations as deemed necessary. Thank you for allowing me to participate in the care of this patient. L History of Present Illness Reason for Consult Consult date: 02/10/25 Reason for consult: acute renal failure Chief Complaint Chief complaint: acute hypoxic/hypercapnic resp failure,pna,chf,uti History of Present Illness Narrative: The patient is a 69-year-old male with a past medical history as outlined below who presented to [facility] from home with complaints of shortness of breath. The patient states that his shortness of breath seemed to start approximately 2 weeks ago and has been progressively getting worse in association with generalized weakness and difficulty ambulating/walking. Other associated symptoms include fatigue, chills, mild productive cough, and a general sensation of not feeling well. His family reports that along with the symptoms he appears to have had some intermittent altered mental status/confusion which has been more prominent in the last few days. No reported history of fevers, chest pain, nausea, vomiting, diarrhea, numbness, tingling, palpitations, or syncope. Given these constellation of complaints/ symptoms as mentioned, he presented to the emergency room for further assessment. Workup and evaluation emergency room demonstrated the patient to be hemodynamically stable if not a bit hypertensive (in the 170 systolic) although he was noted be tachycardic and requiring for supplemental oxygen of 3 L by nasal cannula to maintain his oxygen saturations. Routine blood test demonstrated white blood cell count of 5.6, hemoglobin 12.8, platelet count of 150, sodium 142, potassium 4.4, bicarb 30, BUN 34, creatinine 1.52 with a glucose of 172, calcium 8.8, normal LFTs aside from an alkaline phosphatase of 159, [place] [address], albumin of 3.7, and a normal troponin. Viral testing for influenza, RSV, and COVID were negative. An ABG showed a pH of 7.3, pCO2 of 64, PO2 of 72.6 on 30% FiO2. His chest x-ray showed CHF with superimposed probable pneumonia and a subsequent CTA of the chest abdomen pelvis demonstrated no pulmonary embolism, moderate sized bilateral pleural effusions, moderate-size consolidations in the lower lobes and right middle lobe, small to moderate size ground-glass opacities scattered throughout both lungs most prominent in the upper lobes, moderate size pericardial effusion, small amount of fluid and fat stranding scattered throughout the abdomen and pelvis and concentric thickening of the cintron of the moderately distended bladder along with moderate nonspecific anasarca. Given these laboratory and imaging findings, he was admitted to the hospital for IV diuretics, IV antibiotics after appropriate cultures were obtained, and further evaluation and therapy. Since his admission, his renal function has deteriorated necessitating discontinuation of IV diuretic therapy As his most recent creatinine is up to 3.41 mg/dL. Given his fluctuating respiratory status, pulmonary was consulted and he has subsequently undergone 2 thoracentesis is an effort to optimize his fluid status and breathing. Renal consultation was requested due to his acute kidney injury/acute renal failure. Unfortunately, the only labs I have available to me are from October of 2022 when his creatinine was well within normal limits at 0.80 mg/dL as mentioned above, his creatinine on admission was 1.52 mg/dL but there is an almost 2 year gap in between these laboratory values. It is unclear if his admission creatinine is his new baseline as he does have multiple risk factors for renal insufficiency and the patient does admit that he has not seen a physician in several years so it is difficult to know what his previous creatinine was running prior to this hospitalization/admission. Unfortunately, is difficult to fully assess how much urine he is making as he is incontinent. However, he does not appear to have any critical electrolyte abnormalities or metabolic acidosis although his fluid/volume status remains somewhat of an issue although appears to be doing somewhat better following the thoracentesis that he had yesterday and day before yesterday. Currently, at the time my evaluation, he appears to be in no acute distress. Review of Systems 2 Review of Systems: As per HPI. [facility] Past Medical History Medical History Insulin dependent diabetes mellitus Hyperlipidemia Hypertension Tobacco dependence Polysubstance abuse Paroxysmal atrial fibrillation Prostate cancer Status post radiation. Gastroesophageal reflux disease Tuberculosis (2015) Diabetic retinopathy Hepatitis C Anxiety Depression Surgical History Surgical History History of right below knee amputation History of appendectomy History of tonsillectomy History of left below knee amputation Family History Family History Father Diabetes mellitus Son Heart disease Mother Heart disease Sibling Cerebral aneurysm Social History Social History Social History: Surrogate medical decision maker: Luma Blank, daughter. Code status: Full code. Smoking packs per day: 0.5 Smoking cigarettes per day: 10.0 Years smoked: 54 Smoking pack-years: 27.00 Smoking status: Light tobacco smoker Tobacco type: cigarettes Second hand tobacco smoke exposure: Yes Alcohol intake: never Drinks per week: 14 Substance use: never Substance use type: marijuana and amphetamines Lack of Transportation: YES Lack of Food: Often True Current Housing: I Have Housing Concerned About Future Housing: YES Difficulty Paying Gas/Electric Bills: YES Difficulty Paying for Meds: YES Currently Unemployed: No Education: High School Diploma/GED Difficulty w/ Childcare or Family Care: No Living arrangements: with friend(s) Additional living arrangements comments: Currently staying with a friend. Occupation/Education: retired Additional occupation/education comments: [employer]. Spiritual care concerns: No Agree to blood products: Yes Meds Home Medications and Allergies Home Medications ?Medication ?Instructions ?Recorded ?Confirmed ?Type metformin 500 mg tablet 500 mg PO BID 11/07/2202/06 History insulin glargine 100 unit/mL (3 15 unit (0.15 mL) subc ut HS #15 mL 11/14/22 02/06/25 Rx mL) subcutaneous pen (Lantus Solostar U-100 Insulin) insulin lispro 100 unit/mL 4 unit (0.04 mL) subcut AC #15 mL 11/14/22 02/06/25 Rx subcutaneous pen sertraline 50 mg tablet (Zoloft) 25 mg (1/2 x 50 mg) P O QAM #30 tabs 11/14/22 02/06/25 Rx Allergies Allergy/AdvReac Type Severity Reaction Status Date / Time No Known Allergies Allergy Mild Verified 02/06/25 18:35 Vital Signs Vital Signs Temp Pulse Resp BP Pulse Ox O2 Del Method O2 Flow Rate 02/10/25 08:05 97.7 F 93 20 153/90 H 87 L 02/10/25 08:00 95 20 02/10/25 07:51 97 20 02/10/25 07:51 90 High Flow Nasal Cannula 3 02/10/25 04:05 91 20 02/10/25 04:00 94 02/10/25 03:53 93 22 H 02/10/25 00:00 78 02/09/25 22:30 92 High Flow Nasal Cannula 2 02/09/25 22:25 90 95 High Flow Nasal Cannula 3 02/09/25 20:00 88 02/09/25 20:00 95 Nasal Cannula 3 02/09/25 20:00 92 18 02/09/25 19:55 98.5 F 91 17 131/70 92 02/09/25 19:49 93 20 02/09/25 19:49 93 20 91 High Flow Nasal Cannula 3 02/09/25 19:46 92 High Flow Nasal Cannula 02/09/25 16:20 97.5 F L 93 18 125/65 94 Exam 2 Narrative: GENERAL APPEARANCE: elderly male in no acute distress HEENT: normocephalic, normal conjunctiva and sclera, nares patient NECK: no lymphadenopathy, thyromegaly, or JVD MOUTH: normal lips, teeth, and gums CARDIOVASCULAR: RRR, normal S1 and S2, no rub RESPIRATORY: coarse and decreased at bases ABDOMEN: soft, nontender, nondistended, positive bowel sounds present EXTREMITIES: no evidence of cyanosis, clubbing, or edema; s/p bilateral BKAs NEUROLOGICAL: alert and oriented x 3; CN II - XII intact bilaterally; no focal deficits noted Results Lab Results 02/12/25 03:13 02/12/25 03:13 Lab results: Most recent lab results ABG pH 7.246 (7.350-7.450) L* 02/09/25 05:48 ABG pCO2 55.0 mmHg (35.0-45.0) H 02/09/25 05:48 ABG pO2 62.2 mmHg (80.0-100.0) L 02/09/25 05:48 ABG HCO3 23.4 mEq/l (22.0-26.0) 02/09/25 05:48 ABG O2 Saturation 87.6 % (95.0-100.0) L* 02/09/25 05:48 Calcium 7.9 mg/dL (8.4-10.2) L 02/10/25 10:29 Phosphorus 5.9 mg/dL (2.5-4.5) H 02/10/25 10:29
[2025-02-10] MEDS: UMECLIDINIUM/VILANTEROL 62.5-25 MCG ELLIPTA 1 PUFF INHALATION (13:22)
[2025-02-10] MEDS: cefTRIAXone 2 GM in SODIUM CHLORIDE 0.9% IV 100 ML 200 ML IVPB (14:02)
[2025-02-10] MEDS: AZITHROMYCIN IV 500 MG in SODIUM CHLORIDE 0.9% IV 250 ML IVPB (14:03)
[2025-02-10 22:34] LABS: Partial Thromboplastin Time 41.1 Seconds (22.3-36.8)
[2025-02-10] MEDS: HEPARIN SOD/D5W 100 UNITS/ML 25,000 UNITS/250 ML BAG 13 UNITS IV CONT (22:46)
[2025-02-11] VITALS (10 sets, daily range): BP systolic 102–163; BP diastolic 76–84; PULSE 89–95; RESP 15–20; TEMP 36.4–37.2; O2SAT 91–97
[2025-02-11 05:26] LABS: Hematocrit 36.3 % (42.0-52.0); Hemoglobin 11.2 g/dL (14.0-18.0); Immature Granulocyte Percent A 0.7 % (0-0.5); Lymphocytes Absolute Auto 0.63 K/mm3 (0.9-3.2); Mean Corpuscular HGB Conc 30.9 g/dl (32-36); Mean Corpuscular Hemoglobin 27.0 pg (26-34); Mean Corpuscular Volume 87.5 fl (80-100); Nucleated Red Blood Cells Absolute Auto 0.000 K/mm3 (0.0-0.012); Nucleated Red Blood Cells Perc 0.0 % (0.0-0.2); Platelet Count Result 112 k/mm3 (150-375); Red Blood Count 4.15 M/mm3 (4.6-6.20); White Blood Count 5.8 K/mm3 (4.5-10.0)
[2025-02-11 05:39] LABS: Partial Thromboplastin Time 115.6 Seconds (22.3-36.8)
[2025-02-11 05:49] LABS: Albumin Level 3.2 g/dL (3.5-5.1); Anion Gap 6 mmol/L (4-12); Blood Urea Nitrogen 71 mg/dL (9-20); Calcium 7.9 mg/dL (8.4-10.2); Carbon Dioxide 25 mmol/L (22-30); Chloride 103 mmol/L (98-107); Estimated CRCL calculation 23 ml/min; Estimated Glomerular Filt Rate 20; Glucose 156 mg/dL (65-110); Potassium 4.4 mmol/L (3.4-5.0); Sodium 134 mmol/L (137-145)
[2025-02-11 06:41] LABS: Add Urine Microscopic? YES; Appearance Urine Cloudy (Clear); Glucose Urine UA Trace mg/dL (Negative); Leukocyte Esterase Ur Trace LEU/UL (Negative); Need Manual Microscopic Reviewed; Nitrate Urine Negative (Negative); Specific Grav Ur 1.020 (1.001-1.035)
[2025-02-11 06:43] LABS: Urea Random Urine 612 MG/DL
[2025-02-11 06:54] LABS: Total Protein Urine Random 374 mg/dL; Ur Ttl Prot Creatinine Ratio 3.69 mg/mg (0-0.20)
[2025-02-11 06:57] LABS: Urine Eos QC 2nd Tech Confirmed
--- NOTE | 2025-02-11 07:19 | PM.IMPN ---
Progress Note: A&P Assessment and Plan (1) Sepsis: Qualifiers: Sepsis acute organ dysfunction status: without acute organ dysfunction Sepsis type: sepsis due to unspecified organism Qualified Code(s): A41.9 - Sepsis, unspecified organism Code(s): A41.9 - Sepsis, unspecified organism Status: Acute Assessment and Plan: Met SIRS criteria on admission: HR >90, RR >20. +Hypoxia, -HypoTN. Blood cultures obtained on 02/06, follow. LABS lactic and procalcitonin >> 0.9 and procal 0.1 IMAGING 02/06 CXR: CHF. Superimposed probable pneumonia 02/06 CTA chest/abdomen/pelvis: 1. No pulmonary embolism identified. 2. Moderate-sized bilateral pleural effusions. 3. Moderate-sized consolidations in the lower lobes and right middle lobe. Recommend follow-up to resolution. 4. Small to moderate size ground glass opacity scattered throughout both lungs most prominent in the upper lobes. Recommend follow-up to resolution. 5. Moderate-sized pericardial effusion. 6. Cholelithiasis. 7. Small amount of fluid and fat stranding scattered throughout the abdomen and pelvis for prominent in the right abdomen. 8. Concentric thickening of the cintron of the moderately distended bladder. Differential includes incomplete bladder wall distention, cystitis or sequelae from bladder outlet obstruction. 9. Moderate nonspecific anasarca. 10. Small bilateral fat-containing inguinal hernias, larger on the right which also contains fluid Antibiotics: Started on empiric Ceftiaxone 02/07, increased oxygen requirement on IV diuretics so broadened to Cefepime, Vanc, Flagyl 02/08 PLAN s/p 1L bolus, hold on further fluids due to concern for significant volume overload on imaging, see CHF. - suspected source -> UTI -Antibiotics as noted - monitor hemodynamic stability and O2 saturation (2) Acute on chronic respiratory failure with hypoxia and hypercapnia: Code(s): J96.21 - Acute and chronic respiratory failure with hypoxia; J96.22 - Acute and chronic respiratory failure with hypercapnia Status: Acute Assessment and Plan: Etiology of Respiratory Failure: Possible fluid overload from CHF vs pneumonia Imaging concerning for significant volume overload as evidenced by moderate pleural effusions, moderate nonspecific anasarca, moderate sized pericardial effusion. CTA negative for PE --Consults: pulmonary, cardiology, renal LABS WBC normal since admission 02/06 ABG: PH 7.305/CO2 64, HC03 31.1/O2 saturation 92.7% on 3L 02/08 ABG: Ph 7.297/53.2/25.4/O2 sat 901. on 6L 02/09 ABG: pH 7.246/ 55/23.4/ O2 sat 87.6 on 10L Acute respiratory failure air likely multifactorial including suspected CHF, multifocal pneumonia. Patient is an everyday smoker (1PPD), but no evidence of COPD on imaging. Initially started on Prednisone, now stopped. No wheezing --Pulmonary consulted, appreciate recommendations --nebulizers p.r.n --Off diuretics for GERONIMO --Antibiotics for UTI. --No evidence of pneumonia -- Tried BiPAP for an hour and took it off. Tried AVAPS 02/08 but didn't tolerate --Will need a walking O2 prior to discharge if tolerates (has prosthetics) --May need another thoracentesis DNR/DNI (3) Pneumonia: Qualifiers: Laterality: bilateral Lung location: unspecified part of lung Pneumonia type: due to unspecified organism Qualified Code(s): J18.9 - Pneumonia, unspecified organism Code(s): J18.9 - Pneumonia, unspecified organism Status: Acute Assessment and Plan: 02/09 CT Concerning for pneumonia but WBC has been normal. No fevers Started on Cap tx: Ceftriaxone and azithromycin IV. Changed to Cefepime, Vanc, Flagyl 02/08 since increased oxygen requirements. Stopped Vancomycin 02/09. Stopped cefepime and resumed Ceftriaxone primarily for UTI since no evidence of infection on pleural fluid -Appreciate pulmonary recommendations. --MRSA PCR negative --sputum culture - Viral PCR negative on 02/06 - Supportive care: Mucinex yomaira, Tessalon Perles p.r.n., DuoNebs p.r.n., Tylenol p.r.n. (4) Congestive heart failure: Qualifiers: Heart failure chronicity: acute Heart failure type: unspecified Qualified Code(s): I50.9 - Heart failure, unspecified Code(s): I50.9 - Heart failure, unspecified Status: Suspected Assessment and Plan: Suspected acute CHF. No previous echo available. Decreased LVEF 45-50% and inferior/posterior hypokinesia. Also noted to have a moderate pericardial effusion on CT 02/07 TTE 1. Complete two-dimensional, color flow and Doppler transthoracic echocardiogram is performed. 2. Concentric left ventricular hypertrophy with mild systolic dysfunction, inferior/posterior hypokinesia. 3. Grade 2 diastolic noncompliance. 4. Mild mitral regurgitation. 5. Mildly enlarged ascending aorta, 4.2 cm. 6. Trivial posterior pericardial effusion. see CXR and CT impressions above, concern for volume overload. No peripheral edema to bilateral thighs. BNP 91372 02/06, [id number] on 02/08 PLAN - started on Lasix 40 mg IV b.i.d, on hold for worsening GERONIMO -No QUANG/ARB with GERONIMO - monitor I&Os and daily weights - trend renal function -Cardiology consult for new heart failure, appreciate recommendations. Has a moderate pericardial effusion and limited medication options with GERONIMO Recommending lexiscan myoview outpatient to rule out CAD (5) Pleural effusion: Code(s): J90 - Pleural effusion, not elsewhere classified Status: Acute Assessment and Plan: moderate-sized bilateral pleural effusions noted on CTA, suspected CHF, see above currently requiring supplemental O2, wean as tolerated, maintain O2 sat greater than 92% --s/p Right & Left Thoracentesis. 1100 out on the right 02/08, 1100 on the left 02/09 --Unable to diuresis with GERONIMO --Weaned to 2L<4L, follow oxygen requirements (6) GERONIMO (acute kidney injury): Code(s): N17.9 - Acute kidney failure, unspecified Status: Acute Assessment and Plan: Baseline creatinine 0.7-0.9 from 2019 to 2022, no recent lab work available for comparison. Patient reports he has not been to the doctor in a couple of years Worsening despite diuresis & treatment of UTI. Recently received CT contrast. 4+ protein on initial UA Urine studies UA cloudy 3+ protein, trace LE. Protein/creat ratio 3.69, no eosinophils FeNa 1.2% indeterminate, FeUrea 27% suggests pre-renal Creatinine 1.52, BUN 34, GFR 46 upon admission on 02/06. CK 70 Bladder scan was 220 02/08 Total protein 6.8 Albumin 3.3 02/06 CTA showed concentric thickening of the cintron of the moderately distended bladder, differential including incomplete bladder wall distension, cystitis, or sequela from bladder outlet obstruction. UA concerning for UTI. Concern for CHF/volume overload as evidenced by a pleural effusions, moderate size pericardial effusion, and moderate nonspecific anasarca on CT. Started diuresis but now on hold for worsening GERONIMO 02/08 renal US--No Hydronephrosis PLAN -Nephrology consulted, appreciate recommendations. --Urine studies: UA/micro, urine sodium, urea, protein/creatinine ratio --Holding diuretics for GERONIMO (7) UTI (urinary tract infection): Qualifiers: Hematuria presence: with hematuria Urinary tract infection type: acute cystitis Qualified Code(s): N30.01 - Acute cystitis with hematuria Code(s): N39.0 - Urinary tract infection, site not specified Status: Acute Assessment and Plan: UA: Cloudy, 4+ protein, trace glucose, trace ketones, 2+ blood, 1+ leuk history is, 11-28 RBC, 51-100 WBC, occasional epithelial cells, no bacteria - UC pending, Growing GNB. Growing serratia marcescens - previous micro reviewed, grew Klebsiella in 2020 that was resistant to ampicillin only - started on Ceftriaxone on 02/07. Changed antibiotics as above, Now on Cefepime. 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 02/06/25 9.0 reports he is not on any home medications - hypoglycemia protocol - POC blood glucose ACHS - Started low dose sliding scale TIDWM. Blood sugars still elevated, add 2<3 units TID with meals, SSI -Lantus 5 units daily --Diabetes ed consult prior to discharge. Will need a meter. Can consider oral meds for discharge (9) Paroxysmal atrial fibrillation: Code(s): I48.0 - Paroxysmal atrial fibrillation Status: Chronic Assessment and Plan: History of paroxysmal AFib, currently stable. - initial EKG showed sinus tachycardia, NSR - telemetry monitoring --Resuming anticoagulation today post thoracentesis (10) HTN (hypertension): Qualifiers: Hypertension type: primary hypertension Qualified Code(s): I10 - Essential (primary) hypertension Code(s): I10 - Essential (primary) hypertension Status: Chronic Assessment and Plan: Reports he is not on any home medications, SBP 170/94 in the ER in the setting of respiratory distress - hydralazine p.r.n. for BP greater than 200 -started amlodipine 10 mg daily, blood pressure 120's. Reduced to 2.5mg<5mg<7mg>5mg daily --Follow BP, increase amlodipine as tolerated - monitor Plan Diet: Diabetic GI Prophylaxis: N/a DVT Prophylaxis: Lovenox SQ changed to heparin drip IV fluids: 1L bolus, no further fluids due to concern for CHF Lines/Tubes: Peripheral IV Code Status: DNR/DNI Time Spent With Patient Time: 56 minutes Subjective Date/time seen: 02/11/25 07:19 Interval history: VSS. 2L<4L overnight Increased right effusion on x-ray today Creatinine improving overnight 3.41>3.16 Blood sugars moderately controlled, improved Review of Systems Review of Systems: All systems reviewed & are unremarkable except as noted in HPI and below Exam Narrative: General - Awake and alert. Eyes - PERRLA, EOM intact . Bruising under right eye ENT - No thrush, No erythema Neck - No noticeable or palpable swelling Lymph Nodes - No lymphadenopathy Cardiovascular - RRR no m/r/g, no JVD Lungs: Decreased breath sounds bilateral lower lobes Right more than left No wheezing, use of accessory muscles, no crackles Skin - Skin warm and dry, no wounds or rashes Abdomen - Normal bowel sounds, abdomen soft and nontender Extremities - No edema, cyanosis or clubbing Musculoskeletal - 5/5 strength, normal range of motion. Bilateral BKA Neurological ? Alert and oriented x 3 but slow to remember month and year CN 2-12 grossly intact. Psych: Normal mood and affect Objective Data Vital Signs Vital Signs: Vital Signs - 24 hr 02/10/25 07:51 02/10/25 07:51 02/10/25 08:00 Temperature Pulse Rate 97 95 Respiratory Rate 20 20 Blood Pressure Pulse Oximetry 90 Oxygen Delivery High Flow Nasal Cannula Oxygen Flow Rate 3 02/10/25 08:00 02/10/25 08:00 02/10/25 08:05 Temperature 97.7 F Pulse Rate 96 93 Respiratory Rate 20 Blood Pressure 153/90 H Pulse Oximetry 98 87 L Oxygen Delivery Nasal Cannula Oxygen Flow Rate 3 02/10/25 12:00 02/10/25 16:00 02/10/25 16:14 Temperature 97.7 F Pulse Rate 97 95 96 Respiratory Rate 20 Blood Pressure 152/84 H Pulse Oximetry 98 Oxygen Delivery Oxygen Flow Rate 02/10/25 20:00 02/10/25 20:00 02/10/25 20:00 Temperature 98.2 F Pulse Rate 95 98 Respiratory Rate 20 Blood Pressure 150/77 H Pulse Oximetry 92 91 Oxygen Delivery Nasal Cannula Oxygen Flow Rate 4 02/10/25 21:06 02/11/25 00:00 02/11/25 00:00 Temperature Pulse Rate 95 93 Respiratory Rate Blood Pressure Pulse Oximetry 91 Oxygen Delivery High Flow Nasal Cannula Oxygen Flow Rate 3 02/11/25 03:48 02/11/25 04:00 02/11/25 04:00 Temperature 98.4 F Pulse Rate 93 92 Respiratory Rate 18 Blood Pressure 154/83 H Pulse Oximetry 91 92 Oxygen Delivery Nasal Cannula Oxygen Flow Rate 4 Intake/Output Intake/Output: Intake & Output 02/08/25 02/09/25 02/10/25 02/11/25 23:59 23:59 23:59 23:59 Intake Total 740 565.2 1977 356.6 Output Total 1100 1100 150 Balance -360 -534.8 1977 206.6 Meds/Results Medications: Active Medications Generic Name Dose Route Start Last Admin Trade Name Freq PRN Reason Stop Dose Admin Acetaminophen 650 mg 02/06/25 15:03 Acetaminophen 325 Mg Tablet PO Q4H PRN Mild Pain (1-3) or Fever Amlodipine Besylate 7.5 mg 02/11/25 09:00 Amlodipine Besylate 2.5 Mg Tablet PO DAILY YOMAIRA Benzonatate 100 mg 02/06/25 16:24 Benzonatate 100 Mg Capsule PO TID PRN Cough Dextrose 12.5 gm 02/06/25 15:03 Dextrose 50% 25 Gm/50 Ml Syringe IV PUSH PRN PRN Hypoglycemia Protocol Enoxaparin Sodium 40 mg 02/07/25 09:00 02/08/25 07:56 Enoxaparin 40 Mg/0.4 Ml Syringe SUB-Q Not Given On Hold: 02/08/25 11:15 DAILY YOMAIRA Glucagon 1 mg 02/06/25 15:03 Glucagon For Inj 1 Mg Vial IM PRN PRN Hypoglycemia Protocol Glucose 15 gm 02/06/25 15:03 Glucose Oral Gel 15 Gm Of Glucse In 37.5 Gm Tube PO PRN PRN Hypoglycemia Protocol Guaifenesin 1,200 mg 02/08/25 21:00 02/10/25 11:48 Guaifenesin 12 Hr 600 Mg Tabcr PO Not Given On Hold: 02/10/25 09:50 Q12HR YOMAIRA Heparin Sodium (Porcine) 3,500 units 02/08/25 18:05 Heparin Sodium 5,000 Units/Ml Vial IV PUSH PRN PRN aPTT 55 - 70 seconds Heparin Sodium (Porcine) 4,000 units 02/08/25 22:06 02/10/25 22:47 Heparin Sodium 5,000 Units/Ml Vial IV PUSH 4,000 units PRN PRN Administration aPTT less than 55 seconds Hydralazine HCl 25 mg 02/07/25 17:12 Hydralazine Hcl 25 Mg Tablet PO Q8H PRN Hypertensive Emergency Dextrose 1,000 mls @ 100 mls/hr 02/06/25 15:03 Dextrose 5% 1,000 Ml IVPB PRN PRN Hypoglycemia Protocol Heparin Sodium/Dextrose 25,000 units in 250 mls @ 11 mls/hr 02/08/25 22:05 02/11/25 06:58 Heparin Sodium/D5w 100 Units/Ml IV CONT 1,100 units/hr .[id number] YOMAIRA 11 mls/hr Protocol Titration 1,100 UNITS/HR Ceftriaxone Sodium 2 gm/ 100 mls @ 200 mls/hr 02/10/25 11:00 02/10/25 14:32 Sodium Chloride IVPB Infused Q24H [facility] Infusion Insulin Aspart 2 - 5 units 02/06/25 17:00 02/10/25 17:44 Insulin Aspart (*Bkc) 100 Units/Ml SUB-Q Not Given TIDWM [facility] Protocol Insulin Aspart 2 units 02/09/25 12:00 02/10/25 17:55 Insulin Aspart (*Bkc) 100 Units/Ml SUB-Q Not Given TIDWM [facility] Ondansetron HCl 4 mg 02/06/25 15:03 Ondansetron Inj 4 Mg/2 Ml Vial IV PUSH Q4H PRN Nausea Umeclidinium/Vilanterol 1 puff 02/10/25 10:35 02/10/25 13:22 Umeclidinium/Vilanterol 62.5-25 Mcg Ellipta INHALATION 1 puff DAILYRT YOMAIRA Administration Radiology Results: ITS Impressions Head CT 02/06/25 12:24 IMPRESSION: 1. No acute intracranial findings. Chest/Abdomen/Pelvis CTA 02/06/25 13:40 IMPRESSION: 1. No pulmonary embolism identified. 2. Moderate-sized bilateral pleural effusions. 3. Moderate-sized consolidations in the lower lobes and right middle lobe. Recommend follow-up to resolution. 4. Small to moderate size ground glass opacity scattered throughout both lungs most prominent in the upper lobes. Recommend follow-up to resolution. 5. Moderate-sized pericardial effusion. 6. Cholelithiasis. 7. Small amount of fluid and fat stranding scattered throughout the abdomen and pelvis for prominent in the right abdomen. 8. Concentric thickening of the cintron of the moderately distended bladder. Differential includes incomplete bladder wall distention, cystitis or sequelae from bladder outlet obstruction. 9. Moderate nonspecific anasarca. 10. Small bilateral fat-containing inguinal hernias, larger on the right which also contains fluid Renal Ultrasound 02/08/25 14:41 IMPRESSION: 1. No hydronephrosis. Venous Doppler Study 02/08/25 17:10 IMPRESSION: 1. Deep venous thrombosis at the bilateral popliteal veins. Findings were discussed with Polo Gee, the nurse caring for the patient, at 5:18 PM. Thoracentesis Ultrasound 02/09/25 14:20 IMPRESSION: 1. Successful ultrasound-guided thoracentesis yielding 1100 mL of straw-colored fluid. Chest X-Ray 02/10/25 09:31 IMPRESSION: 1. Developing interstitial pulmonary edema and/or pneumonitis. 2. Large right and small left pleural effusion with associated basilar atelectasis and/or airspace disease. 3. Left basilar linear interface probably skinfold rather than pneumothorax but continued attention on future x-rays. Labs Labs: Laboratory Results - last 24 hr 02/08/25 02/09/25 02/09/25 13:21 06:34 11:06 WBC RBC Hgb Hct MCV MCH MCHC RDW Plt Count MPV Immature Gran % (Auto) Neut % (Auto) Lymph % (Auto) [place] % (Auto) Eos % (Auto) Baso % (Auto) Lymph # (Auto) [place] # (Auto) Eos # (Auto) Baso # (Auto) Abs Immat Gran (auto) Absolute Neuts (auto) Absolute Nucleated RBC Nucleated RBC % % Immature Plt Fraction APTT Sodium Potassium Chloride Carbon Dioxide Anion Gap BUN Creatinine Estim Creat Clear Calc Estimated GFR Glucose POC Capillary Glucose Calcium Phosphorus Albumin [id number]-[id number] 170 Urine Color Urine Appearance Urine pH Ur Specific [place] Urine Protein Urine Glucose (UA) Urine Ketones Ur Blood (Man) Urine Nitrate Urine Bilirubin Urine Urobilinogen Add Ur Microanalysis Leukocyte Esterase Rfl Urine RBC Urine WBC Ur Squamous Epith Cells Urine Bacteria Urine Casts Granular Casts Urine Eosinophils U Random Total Protein Ur Random Sodium Ur Random Urea Urine Creatinine Protein/Creat Ratio 2 Fluid Glucose 215 Fluid Total Protein Fluid Albumin Fluid LDH Fluid Triglycerides Chlamy pneumoniae PCR Not detected Adenovirus (PCR) Not detected B. pertussis DNA (PCR) Not detected B.parapertussis DNA PCR Not detected Coronavirus OC43 (PCR) Not detected Coronavirus HKU1 (PCR) Not detected Coronavirus 229E (PCR) Not detected Coronavirus NL63 (PCR) Not detected Human Metapneumovir PCR Not detected Influenza A (H1) PCR Not detected Influ A (H1/09) PCR Not detected Influenza A (H3) PCR Not detected Influenza Type A (PCR) Not detected Influenza Type B (PCR) Not detected M.pneumoniae IgM Titer <770 M. pneumoniae (PCR) Not detected Parainfluenza 1 (PCR) Not detected Parainfluenza 2 (PCR) Not detected Parainfluenza 3 (PCR) Not detected Parainfluenza 4 (PCR) Not detected RSV (PCR) Not detected Entero/Rhino (PCR) Not detected SARS-CoV-2 (PCR) Not detected 02/09/25 02/10/25 02/10/25 13:32 07:08 10:29 WBC 6.4 RBC 4.21 L Hgb 11.2 L Hct 36.6 L MCV 86.9 MCH 26.6 MCHC 30.6 L RDW 14.8 H Plt Count 118 L MPV 11.3 H Immature Gran % (Auto) 0.5 Neut % (Auto) 86.6 H Lymph % (Auto) 6.7 L [place] % (Auto) 5.6 Eos % (Auto) 0.3 Baso % (Auto) 0.3 Lymph # (Auto) 0.43 L [place] # (Auto) 0.4 Eos # (Auto) 0.0 Baso # (Auto) 0.0 Abs Immat Gran (auto) 0.03 Absolute Neuts (auto) 5.5 Absolute Nucleated RBC 0.000 Nucleated RBC % 0.0 % Immature Plt Fraction 8.2 APTT Sodium 136 L Potassium 4.6 Chloride 102 Carbon Dioxide 27 Anion Gap 7 BUN 71 H Creatinine 3.41 H Estim Creat Clear Calc 22 Estimated GFR 18 L Glucose 196 H POC Capillary Glucose 141 H Calcium 7.9 L Phosphorus 5.9 H Albumin 3.2 L [id number]-[id number] Urine Color Urine Appearance Urine pH Ur Specific [place] Urine Protein Urine Glucose (UA) Urine Ketones Ur Blood (Man) Urine Nitrate Urine Bilirubin Urine Urobilinogen Add Ur Microanalysis Leukocyte Esterase Rfl Urine RBC Urine WBC Ur Squamous Epith Cells Urine Bacteria Urine Casts Granular Casts Urine Eosinophils U Random Total Protein Ur Random Sodium Ur Random Urea Urine Creatinine Protein/Creat Ratio 2 Fluid Glucose 207 Fluid Total Protein 1.7 Fluid Albumin 1.0 Fluid LDH 60 Fluid Triglycerides 10 Chlamy pneumoniae PCR Adenovirus (PCR) B. pertussis DNA (PCR) B.parapertussis DNA PCR Coronavirus OC43 (PCR) Coronavirus HKU1 (PCR) Coronavirus 229E (PCR) Coronavirus NL63 (PCR) Human Metapneumovir PCR Influenza A (H1) PCR Influ A (H1/09) PCR Influenza A (H3) PCR Influenza Type A (PCR) Influenza Type B (PCR) M.pneumoniae IgM Titer M. pneumoniae (PCR) Parainfluenza 1 (PCR) Parainfluenza 2 (PCR) Parainfluenza 3 (PCR) Parainfluenza 4 (PCR) RSV (PCR) Entero/Rhino (PCR) SARS-CoV-2 (PCR) 02/10/25 02/10/25 02/10/25 11:30 16:13 20:09 WBC RBC Hgb Hct MCV MCH MCHC RDW Plt Count MPV Immature Gran % (Auto) Neut % (Auto) Lymph % (Auto) [place] % (Auto) Eos % (Auto) Baso % (Auto) Lymph # (Auto) [place] # (Auto) Eos # (Auto) Baso # (Auto) Abs Immat Gran (auto) Absolute Neuts (auto) Absolute Nucleated RBC Nucleated RBC % % Immature Plt Fraction APTT Sodium Potassium Chloride Carbon Dioxide Anion Gap BUN Creatinine Estim Creat Clear Calc Estimated GFR Glucose POC Capillary Glucose 178 H 183 H 179 H Calcium Phosphorus Albumin Kavyl-[id number] Urine Color Urine Appearance Urine pH Ur Specific [place] Urine Protein Urine Glucose (UA) Urine Ketones Ur Blood (Man) Urine Nitrate Urine Bilirubin Urine Urobilinogen Add Ur Microanalysis Leukocyte Esterase Rfl Urine RBC Urine WBC Ur Squamous Epith Cells Urine Bacteria Urine Casts Granular Casts Urine Eosinophils U Random Total Protein Ur Random Sodium Ur Random Urea Urine Creatinine Protein/Creat Ratio 2 Fluid Glucose Fluid Total Protein Fluid Albumin Fluid LDH Fluid Triglycerides Chlamy pneumoniae PCR Adenovirus (PCR) B. pertussis DNA (PCR) B.parapertussis DNA PCR Coronavirus OC43 (PCR) Coronavirus HKU1 (PCR) Coronavirus 229E (PCR) Coronavirus NL63 (PCR) Human Metapneumovir PCR Influenza A (H1) PCR Influ A () PCR Influenza A (H3) PCR Influenza Type A (PCR) Influenza Type B (PCR) M.pneumoniae IgM Titer M. pneumoniae (PCR) Parainfluenza 1 (PCR) Parainfluenza 2 (PCR) Parainfluenza 3 (PCR) Parainfluenza 4 (PCR) RSV (PCR) Entero/Rhino (PCR) SARS-CoV-2 (PCR) 02/10/25 02/11/25 02/11/25 22:07 05:00 05:56 WBC 5.8 RBC 4.15 L Hgb 11.2 L Hct 36.3 L MCV 87.5 MCH 27.0 MCHC 30.9 L RDW 14.8 H Plt Count 112 L MPV 12.0 H Immature Gran % (Auto) 0.7 H Neut % (Auto) 79.6 H Lymph % (Auto) 10.8 L [place] % (Auto) 7.9 Eos % (Auto) 0.7 Baso % (Auto) 0.3 Lymph # (Auto) 0.63 L [place] # (Auto) 0.5 Eos # (Auto) 0.0 Baso # (Auto) 0.0 Abs Immat Gran (auto) 0.04 H Absolute Neuts (auto) 4.6 Absolute Nucleated RBC 0.000 Nucleated RBC % 0.0 % Immature Plt Fraction APTT 41.1 H 115.6 H Sodium 134 L Potassium 4.4 Chloride 103 Carbon Dioxide 25 Anion Gap 6 BUN 71 H Creatinine 3.16 H Estim Creat Clear Calc 23 Estimated GFR 20 L Glucose 156 H POC Capillary Glucose Calcium 7.9 L Phosphorus 5.2 H Albumin 3.2 L Pqovt-4-Fpckyvvrspz Urine Color Urine Appearance Urine pH Ur Specific [place] Urine Protein Urine Glucose (UA) Urine Ketones Ur Blood (Man) Urine Nitrate Urine Bilirubin Urine Urobilinogen Add Ur Microanalysis Leukocyte Esterase Rfl Urine RBC Urine WBC Ur Squamous Epith Cells Urine Bacteria Urine Casts Granular Casts Urine Eosinophils U Random Total Protein 374 Ur Random Sodium 53 Ur Random Urea 612 Urine Creatinine 101.4 Protein/Creat Ratio 2 3.69 H Fluid Glucose Fluid Total Protein Fluid Albumin Fluid LDH Fluid Triglycerides Chlamy pneumoniae PCR Adenovirus (PCR) B. pertussis DNA (PCR) B.parapertussis DNA PCR Coronavirus OC43 (PCR) Coronavirus HKU1 (PCR) Coronavirus 229E (PCR) Coronavirus NL63 (PCR) Human Metapneumovir PCR Influenza A (H1) PCR Influ A (H1) PCR Influenza A (H3) PCR Influenza Type A (PCR) Influenza Type B (PCR) M.pneumoniae IgM Titer M. pneumoniae (PCR) Parainfluenza 1 (PCR) Parainfluenza 2 (PCR) Parainfluenza 3 (PCR) Parainfluenza 4 (PCR) RSV (PCR) Entero/Rhino (PCR) SARS-CoV-2 (PCR) 02/11/25 05:57 WBC RBC Hgb Hct MCV MCH MCHC RDW Plt Count MPV Immature Gran % (Auto) Neut % (Auto) Lymph % (Auto) [place] % (Auto) Eos % (Auto) Baso % (Auto) Lymph # (Auto) [place] # (Auto) Eos # (Auto) Baso # (Auto) Abs Immat Gran (auto) Absolute Neuts (auto) Absolute Nucleated RBC Nucleated RBC % % Immature Plt Fraction APTT Sodium Potassium Chloride Carbon Dioxide Anion Gap BUN Creatinine Estim Creat Clear Calc Estimated GFR Glucose POC Capillary Glucose Calcium Phosphorus Albumin Ycyte-0-Hhwccfupvel Urine Color Yellow Urine Appearance Cloudy H Urine pH 5.0 Ur Specific [place] 1.020 Urine Protein 3+ H Urine Glucose (UA) Trace H Urine Ketones Negative Ur Blood (Man) 1+ H Urine Nitrate Negative Urine Bilirubin Negative Urine Urobilinogen 0.2 Add Ur Microanalysis Reviewed Leukocyte Esterase Rfl Trace H Urine RBC 0-2 Urine WBC 0-5 Ur Squamous Epith Cells Occasional Urine Bacteria None seen Urine Casts 6-10 Granular Casts Present Urine Eosinophils None seen U Random Total Protein Ur Random Sodium Ur Random Urea Urine Creatinine Protein/Creat Ratio 2 Fluid Glucose Fluid Total Protein Fluid Albumin Fluid LDH Fluid Triglycerides Chlamy pneumoniae PCR Adenovirus (PCR) B. pertussis DNA (PCR) B.parapertussis DNA PCR Coronavirus OC43 (PCR) Coronavirus HKU1 (PCR) Coronavirus 229E (PCR) Coronavirus NL63 (PCR) Human Metapneumovir PCR Influenza A (H1) PCR Influ A (H1/09) PCR Influenza A (H3) PCR Influenza Type A (PCR) Influenza Type B (PCR) M.pneumoniae IgM Titer M. pneumoniae (PCR) Parainfluenza 1 (PCR) Parainfluenza 2 (PCR) Parainfluenza 3 (PCR) Parainfluenza 4 (PCR) RSV (PCR) Entero/Rhino (PCR) SARS-CoV-2 (PCR) Quality VTE Prophylaxis VTE prophylaxis: pharmacologic ordered Hospitalist MIPS Advance Care Plan I have confirmed that the patient's Advanced Care Plan is present, code status is documented, or surrogate decision maker is listed in patient medical record.: Yes Medication Reconciliation I have utilized all available resources to obtain, update and review the patients current medications (includes all prescriptions, OTC, herbals, cannabis, and nutritional supplements).: Yes
[2025-02-11] MEDS: UMECLIDINIUM/VILANTEROL 62.5-25 MCG ELLIPTA 1 PUFF INHALATION (08:18)
[2025-02-11] MEDS: INSULIN GLARGINE (*BKC) 100 UNITS/ML SUB-Q (09:05)
[2025-02-11] MEDS: INSULIN ASPART (*BKC) 100 UNITS/ML SUB-Q ×3 (09:05→17:32)
--- NOTE | 2025-02-11 10:52 | P.PNNP_ITS ---
Progress Note: A&P Assessment and Plan (1) Acute kidney injury: Code(s): N17.9 - Acute kidney failure, unspecified Status: Acute Assessment and Plan: * as noted since hospitalization (admission creatinine 1.52mg/dl) * significant rise noted on 02/08 (1.61 --> 2.57mg/dL) * only previous labs to compare are from October 2022 - creatinine normal at that time (0.80mg/dL) * unclear if a component of chronic renal insufficiency/CKD at baseline...but risk factors noted: * suboptimal diabetes control complicated by PVD + diabetic retinopathy * hypertension * CHF * smoker * history of polysubstance abuse * hepatitis C * suspect multifactorial etiology: * fluctuating hemodynamics * infection/sepsis (UTI +/- pneumonia) * CHF exacerbation * IV diuretic therapy * contrast exposure (CTA on 02/06) - suspect this is reason for rise in creatinine on 02/08 * hypoxia * other (?) * evaluation to date noted: * renal ultrasound w/o obstruction * urine electrolytes (by FeUrea) prerenal * urine eosinophils negative * nephrotic range proteinuria * CPK normal * initial UA suggest infection * no critical electrolytes but difficult to assess if adequate urine output * given proteinuria, will check serologies * follow trend of repeat labs and UOP (2) Acute hypoxic respiratory failure: Code(s): J96.01 - Acute respiratory failure with hypoxia Status: Acute Assessment and Plan: * complicated by hypercapnia (as noted by ABGs) * does not wear supplemental oxygen at baseline * due to several issues: * bilateral pleural effusions * CHF exacerbation * volume overload * pneumonia (?) * underlying reactive airway disease/COPD (?) -- although no evidence by imaging * pericardial effusion * complicated by extensive smoking history * s/p thoracentesis x 2 (left on 02/09 and right on 02/08) * pleural fluid analysis without evidence of infection/transudative * Pulmonary following with recommendations noted * unable to tolerated AVAPS * continue nebulizer treatments/inhalers * wean O2 as tolerated * continue therapy as outlined (3) Congestive heart failure: Qualifiers: Heart failure chronicity: acute Heart failure type: unspecified Q ualified Code(s): I50.9 - Heart failure, unspecified Code(s): I50.9 - Heart failure, unspecified Status: Suspected Assessment and Plan: * suspected on admission * Echo (on 02/07) noted: * left ventricular systolic function is mildly reduced, estimated at 45 - 50% (inferior/posterior hypokinesia) * left ventricular diastolic function is grade II diastolic dysfunction * mild aortic valve sclerosis. * mild mitral regurgitation * mildly enlarged ascending aorta, 4.2cm * rivial posterior pericardial effusion * elevated BNP noted * imaging noted on admission noted: * CXR: CHF. Superimposed probable pneumonia * CTA C/A/P: no pulmonary embolism identified; moderate-sized bilateral pleural effusions; moderate-sized consolidations in the lower lobes and right middle lobe; small to moderate size ground glass opacity scattered throughout both lungs most prominent in the upper lobes; moderate-sized pericardial effusion. * initiated on IV diuresis but on hold due to #1 * if renal function stabilizes/improves, will consider restart of diuretics (4) Pleural effusion: Code(s): J90 - Pleural effusion, not elsewhere classified Status: Acute Assessment and Plan: * as noted by admission imaging * s/p left (on 02/09) and right (on 02/08) thoracentesis * 1100cc removed on right * 1100cc removed on left * pleural fluid analysis noted (see #2) * consider re-attempt at diuresis if renal function improves * alternatively, consider repeat thoracentesis * follow repeat imaging (5) Pneumonia: Qualifiers: Laterality: bilateral Lung location: unspecified part of lung P neumonia type: due to unspecified organism Qualified Code(s): J18.9 - Pneumonia, unspecified organism Code(s): J18.9 - Pneumonia, unspecified organism Status: Acute Assessment and Plan: * admission CXR and CT chest suggestive * however, no fevers and normal WBC; but noted hypoxia * viral testing for influenza/RSV/COVID negative * extended respiratory viral pathogen panel negative as well * follow culture data * furthermore, pleural fluid analysis argues against infection * on antibiotics (6) UTI (urinary tract infection): Qualifiers: Hematuria presence: with hematuria Urinary tract infection type: acute cystitis Qualified Code(s): N30.01 - Acute cystitis with hematuria Code(s): N39.0 - Urinary tract infection, site not specified Status: Acute Assessment and Plan: * admission UA suggestive * urine culture with Serratia marcescens * on antibiotics (7) Paroxysmal atrial fibrillation: Code(s): I48.0 - Paroxysmal atrial fibrillation Status: Chronic Assessment and Plan: * known history * rate controlled * off anticoagulation for interventions (thoracenteses) * resume if no further invasive procedures planned (8) Anemia: Code(s): D64.9 - Anemia, unspecified Status: Acute Assessment and Plan: * presumably secondary to GERONIMO and acute illness * no need for YOHANA at this time * follow trend of H/H (9) HTN (hypertension): Qualifiers: Hypertension type: primary hypertension Qualified Code(s): I10 - Essential (primary) hypertension Code(s): I10 - Essential (primary) hypertension Status: Chronic Assessment and Plan: * elevated on admission * no outpatient medications * started on medications during this hospitalization * follow trend of hemodynamics (10) Diabetes: Qualifiers: Diabetes mellitus complication status: without complication Diabetes mellitus snf insulin use: with snf use Diabetes mellitus type: type 2 Qualified Code(s): E11.9 - Type 2 diabetes mellitus without complications; Z79.4 - [employer] (current) use of insulin Code(s): E11.9 - Type 2 diabetes mellitus without complications Status: Chronic Assessment and Plan: * suboptimal control at baseline * was not taking any outpatient medications * follow accu-cheks * glycemic control per hospitalist Will continue to follow. L Time Spent With Patient Time: 56 minutes Subjective Date/time seen: 02/11/25 10:52 Interval history: Follow-up for acute kidney injury/acute renal failure (on chronic kidney disease?). Breathing/respiratory status seems stable if not better at the time of my visit; no apparent distress noted when seen but seems a bit fatigued/tired; no other issues/events overnight or earlier this morning. Exam 2 Narrative: General: elderly male in NAD Heart: normal S1 and S2; no rub Lungs: coarse with decreased breath sounds at bases (R>L) Abdomen: soft, nontender, nondistended, positive bowel sounds Extremities: no cyanosis or clubbing; no edema; s/p bilateral BKAs Skin: warm and dry Objective Data Vital Signs Vital Signs: Vital Signs Temp Pulse Resp BP Pulse Ox O2 Del Method O2 Flow Rate 02/11/25 08:19 90 16 02/11/25 08:19 89 15 02/11/25 08:00 94 02/11/25 08:00 97 Nasal Cannula 3 02/11/25 08:00 97.9 F 92 20 102/82 97 02/11/25 04:00 98.4 F 92 18 154/83 H 92 02/11/25 04:00 93 02/11/25 03:48 91 Nasal Cannula 4 02/11/25 00:00 93 02/11/25 00:00 95 02/10/25 21:06 91 High Flow Nasal Cannula 3 02/10/25 20:00 98 02/10/25 20:00 91 Nasal Cannula 4 02/10/25 20:00 98.2 F 95 20 150/77 H 92 02/10/25 16:14 97.7 F 96 20 152/84 H 98 02/10/25 16:00 95 Intake/Output Intake/Output: Intake & Output 02/08/25 02/09/25 02/10/25 02/11/25 23:59 23:59 23:59 23:59 Intake Total 740 565.2 1977 356.6 Output Total 1100 1100 150 Balance -360 -534.8 1977 206.6 Meds/Results Medications: Active Medications Generic Name Dose Route Start Last Admin Trade Name Freq PRN Reason Stop Dose Admin Acetaminophen 650 mg 02/06/25 15:03 Acetaminophen 325 Mg Tablet PO Q4H PRN Mild Pain (1-3) or Fever Amlodipine Besylate 5 mg 02/12/25 09:00 Amlodipine Besylate 5 Mg Tablet PO DAILY OMI Benzonatate 100 mg 02/06/25 16:24 Benzonatate 100 Mg Capsule PO TID PRN Cough Dextrose 12.5 gm 02/06/25 15:03 Dextrose 50% 25 Gm/50 Ml Syringe IV PUSH PRN PRN Hypoglycemia Protocol Enoxaparin Sodium 40 mg 02/07/25 09:00 02/08/25 07:56 Enoxaparin 40 Mg/0.4 Ml Syringe SUB-Q Not Given On Hold: 02/08/25 11:15 DAILY OMI Glucagon 1 mg 02/06/25 15:03 Glucagon For Inj 1 Mg Vial IM PRN PRN Hypoglycemia Protocol Glucose 15 gm 02/06/25 15:03 Glucose Oral Gel 15 Gm Of Glucse In 37.5 Gm Tube PO PRN PRN Hypoglycemia Protocol Guaifenesin 1,200 mg 02/08/25 21:00 02/10/25 11:48 Guaifenesin 12 Hr 600 Mg Tabcr PO Not Given On Hold: 02/10/25 09:50 Q12HR OMI Heparin Sodium (Porcine) 3,500 units 02/08/25 18:05 Heparin Sodium 5,000 Units/Ml Vial IV PUSH PRN PRN aPTT 55 - 70 seconds Heparin Sodium (Porcine) 4,000 units 02/08/25 22:06 02/10/25 22:47 Heparin Sodium 5,000 Units/Ml Vial IV PUSH 4,000 units PRN PRN Administration aPTT less than 55 seconds Hydralazine HCl 25 mg 02/07/25 17:12 Hydralazine Hcl 25 Mg Tablet PO Q8H PRN Hypertensive Emergency Dextrose 1,000 mls @ 100 mls/hr 02/06/25 15:03 Dextrose 5% 1,000 Ml IVPB PRN PRN Hypoglycemia Protocol Heparin Sodium/Dextrose 25,000 units in 250 mls @ 11 mls/hr 02/08/25 22:05 02/11/25 06:58 Heparin Sodium/D5w 100 Units/Ml IV CONT 1,100 units/hr .[id number] OMI 11 mls/hr Protocol Titration 1,100 UNITS/HR Ceftriaxone Sodium 2 gm/ 100 mls @ 200 mls/hr 02/10/25 11:00 02/11/25 12:54 Sodium Chloride IVPB 200 mls/hr Q24H OMI Administration Insulin Aspart 2 - 5 units 02/06/25 17:00 02/11/25 12:50 Insulin Aspart (*Bkc) 100 Units/Ml SUB-Q Not Given TIDWM [facility] Protocol Insulin Aspart 3 units 02/11/25 08:00 02/11/25 12:53 Insulin Aspart (*Bkc) 100 Units/Ml SUB-Q 3 units TIDWM OMI Administration Insulin Glargine 5 units 02/11/25 09:00 02/11/25 09:05 Insulin Glargine (*Bkc) 100 Units/Ml SUB-Q 5 units DAILY OMI Administration Ondansetron HCl 4 mg 02/06/25 15:03 Ondansetron Inj 4 Mg/2 Ml Vial IV PUSH Q4H PRN Nausea Umeclidinium/Vilanterol 1 puff 02/10/25 10:35 02/11/25 08:18 Umeclidinium/Vilanterol 62.5-25 Mcg Ellipta INHALATION 1 puff DAILYRT OMI Administration Radiology Results: ITS Impressions Head CT 02/06/25 12:24 IMPRESSION: 1. No acute intracranial findings. Chest/Abdomen/Pelvis CTA 02/06/25 13:40 IMPRESSION: 1. No pulmonary embolism identified. 2. Moderate-sized bilateral pleural effusions. 3. Moderate-sized consolidations in the lower lobes and right middle lobe. Recommend follow-up to resolution. 4. Small to moderate size ground glass opacity scattered throughout both lungs most prominent in the upper lobes. Recommend follow-up to resolution. 5. Moderate-sized pericardial effusion. 6. Cholelithiasis. 7. Small amount of fluid and fat stranding scattered throughout the abdomen and pelvis for prominent in the right abdomen. 8. Concentric thickening of the cintron of the moderately distended bladder. Differential includes incomplete bladder wall distention, cystitis or sequelae from bladder outlet obstruction. 9. Moderate nonspecific anasarca. 10. Small bilateral fat-containing inguinal hernias, larger on the right which also contains fluid Renal Ultrasound 02/08/25 14:41 IMPRESSION: 1. No hydronephrosis. Venous Doppler Study 02/08/25 17:10 IMPRESSION: 1. Deep venous thrombosis at the bilateral popliteal veins. Findings were discussed with Polo Gee, the nurse caring for the patient, at 5:18 PM. Thoracentesis Ultrasound 02/09/25 14:20 IMPRESSION: 1. Successful ultrasound-guided thoracentesis yielding 1100 mL of straw-colored fluid. Chest X-Ray 02/11/25 08:56 IMPRESSION: 1. No significant change. 2. Pleural effusions, right side larger, with bibasilar atelectasis and/or airspace disease. 3. Interstitial pulmonary edema and/or pneumonitis. Labs Labs: Laboratory Tests 02/11/25 05:00 02/11/25 05:00 Calcium 7.9 L Phosphorus 5.2 H Albumin 3.2 L Microbiology 02/11/25 05:56 Urine Clean Catch Microbiology Comment - Final Not Reportable 02/09/25 13:32 Pleural Fluid AFB Specimen Processing - Final 02/09/25 13:32 Pleural Fluid Acid Fast Bacilli Smear - Final 02/09/25 13:32 Pleural Fluid Acid Fast Bacilli Culture - Preliminary
[2025-02-11] MEDS: cefTRIAXone 2 GM in SODIUM CHLORIDE 0.9% IV 100 ML 200 ML IVPB (12:54)
[2025-02-11 14:00] LABS: Partial Thromboplastin Time 54.7 Seconds (22.3-36.8)
[2025-02-11 20:15] LABS: Partial Thromboplastin Time 46.4 Seconds (22.3-36.8)
[2025-02-11] MEDS: HEPARIN SOD/D5W 100 UNITS/ML 25,000 UNITS/250 ML BAG 11 UNITS IV CONT (20:24)
[2025-02-11] MEDS: HEPARIN SOD/D5W 100 UNITS/ML 25,000 UNITS/250 ML BAG 14 UNITS IV CONT (21:03)
[2025-02-11] MEDS: GLUCAGON FOR INJ 1 MG VIAL IM (21:37)
[2025-02-12] VITALS (10 sets, daily range): BP systolic 145–165; BP diastolic 74–83; PULSE 90–96; RESP 18–20; TEMP 36.5–36.9; O2SAT 90–97
[2025-02-12 03:21] LABS: Hematocrit 37.6 % (42.0-52.0); Hemoglobin 11.6 g/dL (14.0-18.0); Immature Granulocyte Percent A 0.9 % (0-0.5); Immature Platelet Fraction Pct 7.8 % (0.9-11.2); Lymphocytes Absolute Auto 0.58 K/mm3 (0.9-3.2); Mean Corpuscular HGB Conc 30.9 g/dl (32-36); Mean Corpuscular Hemoglobin 26.9 pg (26-34); Mean Corpuscular Volume 87.0 fl (80-100); Nucleated Red Blood Cells Absolute Auto 0.000 K/mm3 (0.0-0.012); Nucleated Red Blood Cells Perc 0.0 % (0.0-0.2); Platelet Count Result 124 k/mm3 (150-375); Red Blood Count 4.32 M/mm3 (4.6-6.20); White Blood Count 6.5 K/mm3 (4.5-10.0)
[2025-02-12 03:39] LABS: Albumin Level 3.3 g/dL (3.5-5.1); Anion Gap 7 mmol/L (4-12); Blood Urea Nitrogen 65 mg/dL (9-20); Calcium 8.3 mg/dL (8.4-10.2); Carbon Dioxide 26 mmol/L (22-30); Chloride 103 mmol/L (98-107); Estimated CRCL calculation 28 ml/min; Estimated Glomerular Filt Rate 25; Glucose 93 mg/dL (65-110); Potassium 4.7 mmol/L (3.4-5.0); Sodium 136 mmol/L (137-145)
[2025-02-12 03:40] LABS: Partial Thromboplastin Time 127.0 Seconds (22.3-36.8)
[2025-02-12] MEDS: HEPARIN SOD/D5W 100 UNITS/ML 25,000 UNITS/250 ML BAG 12 UNITS IV CONT (03:56)
[2025-02-12] MEDS: BUMETANIDE INJ 1 MG/4 ML VIAL 1.5 MG IV PUSH (06:44)
--- NOTE | 2025-02-12 08:01 | P.PNIM_ITS ---
Progress Note: A&P Assessment and Plan (1) Sepsis: Qualifiers: Sepsis acute organ dysfunction status: without acute organ dysfunction Sepsis type: sepsis due to unspecified organism Qualified Code(s): A41.9 - S epsis, unspecified organism Code(s): A41.9 - Sepsis, unspecified organism Status: Acute Assessment and Plan: Met SIRS criteria on admission: HR >90, RR >20. +Hypoxia, -HypoTN. Blood cultures obtained on 02/06, follow. LABS lactic and procalcitonin >> 0.9 and procal 0.1 IMAGING 02/06 CXR: CHF. Superimposed probable pneumonia 02/06 CTA chest/abdomen/pelvis: 1. No pulmonary embolism identified. 2. Moderate-sized bilateral pleural effusions. 3. Moderate-sized consolidations in the lower lobes and right middle lobe. Recommend follow-up to resolution. 4. Small to moderate size ground glass opacity scattered throughout both lungs most prominent in the upper lobes. Recommend follow-up to resolution. 5. Moderate-sized pericardial effusion. 6. Cholelithiasis. 7. Small amount of fluid and fat stranding scattered throughout the abdomen and pelvis for prominent in the right abdomen. 8. Concentric thickening of the cintron of the moderately distended bladder. Differential includes incomplete bladder wall distention, cystitis or sequelae from bladder outlet obstruction. 9. Moderate nonspecific anasarca. 10. Small bilateral fat-containing inguinal hernias, larger on the right which also contains fluid Antibiotics: Started on empiric Ceftiaxone 02/07, increased oxygen requirement on IV diuretics so broadened to Cefepime, Vanc, Flagyl 02/08 PLAN s/p 1L bolus, hold on further fluids due to concern for significant volume overload on imaging, see CHF. - suspected source -> UTI -Antibiotics as noted - monitor hemodynamic stability and O2 saturation (2) Acute on chronic respiratory failure with hypoxia and hypercapnia: Code(s): J96.21 - Acute and chronic respiratory failure with hypoxia; J96.22 - Acute and chronic respiratory failure with hypercapnia Status: Acute Assessment and Plan: Etiology of Respiratory Failure: Possible fluid overload from CHF vs pneumonia Imaging concerning for significant volume overload as evidenced by moderate pleural effusions, moderate nonspecific anasarca, moderate sized pericardial effusion. CTA negative for PE --Consults: pulmonary, cardiology, renal LABS WBC normal since admission 02/06 ABG: PH 7.305/CO2 64, HC03 31.1/O2 saturation 92.7% on 3L 02/08 ABG: Ph 7.297/53.2/25.4/O2 sat 901. on 6L 02/09 ABG: pH 7.246/ 55/23.4/ O2 sat 87.6 on 10L Acute respiratory failure air likely multifactorial including suspected CHF, multifocal pneumonia. Patient is an everyday smoker (1PPD), but no evidence of COPD on imaging. Initially started on Prednisone, now stopped. No wheezing --Pulmonary consulted, appreciate recommendations --nebulizers p.r.n --Off diuretics for GERONIMO --Antibiotics for UTI. --No evidence of pneumonia -- Tried BiPAP for an hour and took it off. Tried AVAPS 02/08 but didn't to lerate --Will need a walking O2 prior to discharge if tolerates (has prosthetics) --May need another thoracentesis DNR/DNI (3) Pneumonia: Qualifiers: Laterality: bilateral Lung location: unspecified part of lung Pneumonia type: due to unspecified organism Qualified Code(s): J18.9 - Pneumonia, unspecified organism Code(s): J18.9 - Pneumonia, unspecified organism Status: Acute Assessment and Plan: 02/09 CT Concerning for pneumonia but WBC has been normal. No fevers Started on Cap tx: Ceftriaxone and azithromycin IV. Changed to Cefepime, Vanc, Flagyl 02/08 since increased oxygen requirements. Stopped Vancomycin 02/09. Stopped cefepime and resumed Ceftriaxone primarily for UTI since no evidence of infection on pleural fluid -Appreciate pulmonary recommendations. --MRSA PCR negative --sputum culture - Viral PCR negative on 02/06 - Supportive care: Mucinex yomaira, Tessalon Perles p.r.n., DuoNebs p.r.n., Tylenol p.r.n. (4) Congestive heart failure: Qualifiers: Heart failure chronicity: acute Heart failure type: unspecified Qualified Code(s): I50.9 - Heart failure, unspecified Code(s): I50.9 - Heart failure, unspecified Status: Suspected Assessment and Plan: Suspected acute CHF. No previous echo available. Decreased LVEF 45-50% and inferior/posterior hypokinesia. Also noted to have a moderate pericardial effusion on CT 02/07 TTE 1. Complete two-dimensional, color flow and Doppler transthoracic echocardiogram is performed. 2. Concentric left ventricular hypertrophy with mild systolic dysfunction, inferior/posterior hypokinesia. 3. Grade 2 diastolic noncompliance. 4. Mild mitral regurgitation. 5. Mildly enlarged ascending aorta, 4.2 cm. 6. Trivial posterior pericardial effusion. see CXR and CT impressions above, concern for volume overload. No peripheral edema to bilateral thighs. BNP 94199 02/06, [id number] on 02/08 PLAN - started on Lasix 40 mg IV b.i.d, on hold for worsening GERONIMO -No QUANG/ARB with GERONIMO - monitor I&Os and daily weights - trend renal function -Cardiology consult for new heart failure, appreciate recommendations. Has a moderate pericardial effusion and limited medication options with GERONIMO Recommending lexiscan myoview outpatient to rule out CAD (5) Pleural effusion: Code(s): J90 - Pleural effusion, not elsewhere classified Status: Acute Assessment and Plan: moderate-sized bilateral pleural effusions noted on CTA, suspected CHF, see above currently requiring supplemental O2, wean as tolerated, maintain O2 sat greater than 92% --s/p Right & Left Thoracentesis. 1100 out on the right 02/08, 1100 on the left 02/09 --Unable to diuresis with GERONIMO. If continued improvement, could restart --Weaned to 2L<4L, follow oxygen requirements (6) GERONIMO (acute kidney injury): Code(s): N17.9 - Acute kidney failure, unspecified Status: Acute Assessment and Plan: Baseline creatinine 0.7-0.9 from 2019 to 2022, no recent lab work available for comparison. Patient reports he has not been to the doctor in a couple of years Worsening despite diuresis & treatment of UTI. Recently received CT contrast. 4+ protein on initial UA Urine studies UA cloudy 3+ protein, trace LE. Protein/creat ratio 3.69, no eosinophils FeNa 1.2% indeterminate, FeUrea 27% suggests pre-renal Creatinine 1.52, BUN 34, GFR 46 upon admission on 02/06. CK 70 Bladder scan was 220 02/08 Total protein 6.8 Albumin 3.3 02/06 CTA showed concentric thickening of the cintron of the moderately distended bladder, differential including incomplete bladder wall distension, cystitis, or sequela from bladder outlet obstruction. UA concerning for UTI. Concern for CHF/volume overload as evidenced by a pleural effusions, moderate size pericardial effusion, and moderate nonspecific anasarca on CT. Started diuresis but now on hold for worsening GERONIMO 02/08 renal US--No Hydronephrosis PLAN -Nephrology consulted, appreciate recommendations. --Diuretics have been held for GERONIMO --Trialing Bumex 1.5mg IV x1 today (7) UTI (urinary tract infection): Qualifiers: Hematuria presence: with hematuria Urinary tract infection type: acute cystitis Qualified Code(s): N30.01 - Acute cystitis with hematuria Code(s): N39.0 - Urinary tract infection, site not specified Status: Acute Assessment and Plan: UA: Cloudy, 4+ protein, trace glucose, trace ketones, 2+ blood, 1+ leuk history is, 11-28 RBC, 51-100 WBC, occasional epithelial cells, no bacteria - UC pending, Growing GNB. Growing serratia marcescens - previous micro reviewed, grew Klebsiella in 2020 that was resistant to ampicillin only - started on Ceftriaxone on 02/06. Completed 5 days of Ceftriaxone and Cefepime (8) Diabetes: Qualifiers: Diabetes mellitus complication status: without complication Diabetes mellitus senior living insulin use: with intermediate manager use Diabetes mellitus type: type 2 Qualified Code(s): E11.9 - Type 2 diabetes mellitus without complications; Z79.4 - intermediate manager (current) use of insulin Code(s): E11.9 - Type 2 diabetes mellitus without complications Status: Chronic Assessment and Plan: Previously complicated by diabetic foot wounds, s/p bilateral BKA A1C 12.6% in 2022. 02/06/25 9.0 reports he is not on any home medications - hypoglycemia protocol - POC blood glucose ACHS - Started low dose sliding scale TIDWM. Blood sugars still elevated, add 2<3 units TID with meals, SSI -Lantus 5 units daily --Diabetes ed consult prior to discharge. Will need a meter. Can consider oral meds for discharge (9) Paroxysmal atrial fibrillation: Code(s): I48.0 - Paroxysmal atrial fibrillation Status: Chronic Assessment and Plan: History of paroxysmal AFib, currently stable. - initial EKG showed sinus tachycardia, NSR - telemetry monitoring --Resumed heparin drip post thoracentesis --Change to lovenox or apixaban when creatinine stable and no more procedures planned (10) HTN (hypertension): Qualifiers: Hypertension type: primary hypertension Qualified Code(s): I10 - Essential (primary) hypertension Code(s): I10 - Essential (primary) hypertension Status: Chronic Assessment and Plan: Reports he is not on any home medications, SBP 170/94 in the ER in the setting of respiratory distress - hydralazine p.r.n. for BP greater than 200 -started amlodipine 10 mg daily, blood pressure 120's. Reduced to 2.5mg<5mg<7.5mg>5mg daily --Follow BP, increase amlodipine as tolerated - monitor Plan Diet: Diabetic GI Prophylaxis: N/a DVT Prophylaxis: Lovenox SQ changed to heparin drip IV fluids: 1L bolus, no further fluids due to concern for CHF Lines/Tubes: Peripheral IV Code Status: DNR/DNI Time Spent With Patient Time: 57 minutes Subjective Date/time seen: 02/12/25 08:01 Interval history: Creatinine improving, 3.16 down to 2.60 Not very motivated today, low mood May be able to start diuretics in a day or two if continues to improve. Otherwis e could need another thoracentesis. oxygen requirements stable, 3L Review of Systems Review of Systems: All systems reviewed & are unremarkable except as noted in HPI and below Exam Narrative: General - Awake and alert. Eyes - PERRLA, EOM intact . Bruising under right eye ENT - No thrush, No erythema Neck - No noticeable or palpable swelling Lymph Nodes - No lymphadenopathy Cardiovascular - RRR no m/r/g, no JVD Lungs: Decreased breath sounds bilateral lower lobes Right more than left No wheezing, use of accessory muscles, no crackles Skin - Skin warm and dry, no wounds or rashes Abdomen - Normal bowel sounds, abdomen soft and nontender Extremities - No edema, cyanosis or clubbing Musculoskeletal - 5/5 strength, normal range of motion. Bilateral BKA Neurological ? Alert and oriented x 3 but slow to remember month and year CN 2- 12 grossly intact. Psych: Normal mood and affect Objective Data Vital Signs Vital Signs: Vital Signs - 24 hr 02/11/25 08:19 02/11/25 08:19 02/11/25 12:00 Temperature Pulse Rate 89 90 93 Respiratory Rate 15 16 Blood Pressure Pulse Oximetry Oxygen Delivery Fraction of Inspired Oxygen 02/11/25 14:36 02/11/25 16:00 02/11/25 20:00 Temperature 98.9 F Pulse Rate 95 93 93 Respiratory Rate 20 18 Blood Pressure 163/84 H Pulse Oximetry 93 97 Oxygen Delivery Room Air Fraction of Inspired Oxygen 36 02/11/25 20:00 02/11/25 21:22 02/12/25 04:00 Temperature 97.6 F Pulse Rate 95 93 93 Respiratory Rate 18 Blood Pressure 149/76 H Pulse Oximetry 97 Oxygen Delivery Fraction of Inspired Oxygen 02/12/25 04:57 Temperature 98.4 F Pulse Rate 93 Respiratory Rate 20 Blood Pressure 165/83 H Pulse Oximetry 90 Oxygen Delivery Fraction of Inspired Oxygen Intake/Output Intake/Output: Intake & Output 02/09/25 02/10/25 02/11/25 02/12/25 23:59 23:59 23:59 23:59 Intake Total 565.2 1977 827.2 246.4 Output Total 1100 150 Balance -534.8 1977 677.2 246.4 Meds/Results Medications: Active Medications Generic Name Dose Route Start Last Admin Trade Name Freq PRN Reason Stop Dose Admin Acetaminophen 650 mg 02/06/25 15:03 Acetaminophen 325 Mg Tablet PO Q4H PRN Mild Pain (1-3) or Fever Amlodipine Besylate 5 mg 02/12/25 09:00 Amlodipine Besylate 5 Mg Tablet PO DAILY YOMAIRA Benzonatate 100 mg 02/06/25 16:24 Benzonatate 100 Mg Capsule PO TID PRN Cough Dextrose 12.5 gm 02/06/25 15:03 Dextrose 50% 25 Gm/50 Ml Syringe IV PUSH PRN PRN Hypoglycemia Protocol Enoxaparin Sodium 40 mg 02/07/25 09:00 02/08/25 07:56 Enoxaparin 40 Mg/0.4 Ml Syringe SUB-Q Not Given On Hold: 02/08/25 11:15 DAILY YOMAIRA Glucagon 1 mg 02/06/25 15:03 02/11/25 21:37 Glucagon For Inj 1 Mg Vial IM 1 mg PRN PRN Administration Hypoglycemia Protocol Glucose 15 gm 02/06/25 15:03 Glucose Oral Gel 15 Gm Of Glucse In 37.5 Gm Tube PO PRN PRN Hypoglycemia Protocol Guaifenesin 1,200 mg 02/08/25 21:00 02/10/25 11:48 Guaifenesin 12 Hr 600 Mg Tabcr PO Not Given On Hold: 02/10/25 09:50 Q12HR YOMAIRA Heparin Sodium (Porcine) 3,500 units 02/08/25 18:05 Heparin Sodium 5,000 Units/Ml Vial IV PUSH PRN PRN aPTT 55 - 70 seconds Heparin Sodium (Porcine) 4,000 units 02/08/25 22:06 02/11/25 21:03 Heparin Sodium 5,000 Units/Ml Vial IV PUSH 4,000 units PRN PRN Administration aPTT less than 55 seconds Hydralazine HCl 25 mg 02/07/25 17:12 Hydralazine Hcl 25 Mg Tablet PO Q8H PRN Hypertensive Emergency Dextrose 1,000 mls @ 100 mls/hr 02/06/25 15:03 Dextrose 5% 1,000 Ml IVPB PRN PRN Hypoglycemia Protocol Heparin Sodium/Dextrose 25,000 units in 250 mls @ 12 mls/hr 02/08/25 22:05 02/12/25 03:56 Heparin Sodium/D5w 100 Units/Ml IV CONT 1,200 units/hr .[id number] YOMAIRA 12 mls/hr Protocol Administration 1,200 UNITS/HR Ceftriaxone Sodium 2 gm/ 100 mls @ 200 mls/hr 02/10/25 11:00 02/11/25 13:24 Sodium Chloride IVPB Infused Q24H YOMAIRA Infusion Insulin Aspart 2 - 5 units 02/06/25 17:00 02/11/25 16:56 Insulin Aspart (*Bkc) 100 Units/Ml SUB-Q Not Given TIDWM [facility] Protocol Insulin Aspart 3 units 02/11/25 08:00 02/11/25 17:32 Insulin Aspart (*Bkc) 100 Units/Ml SUB-Q 3 units TIDWM YOMAIRA Administration Insulin Glargine 5 units 02/11/25 09:00 02/11/25 09:05 Insulin Glargine (*Bkc) 100 Units/Ml SUB-Q 5 units DAILY YOMAIRA Administration Ondansetron HCl 4 mg 02/06/25 15:03 Ondansetron Inj 4 Mg/2 Ml Vial IV PUSH Q4H PRN Nausea Umeclidinium/Vilanterol 1 puff 02/10/25 10:35 02/11/25 08:18 Umeclidinium/Vilanterol 62.5-25 Mcg Ellipta INHALATION 1 puff DAILYRT YOMAIRA Administration Radiology Results: ITS Impressions Head CT 02/06/25 12:24 IMPRESSION: 1. No acute intracranial findings. Chest/Abdomen/Pelvis CTA 02/06/25 13:40 IMPRESSION: 1. No pulmonary embolism identified. 2. Moderate-sized bilateral pleural effusions. 3. Moderate-sized consolidations in the lower lobes and right middle lobe. Recommend follow-up to resolution. 4. Small to moderate size ground glass opacity scattered throughout both lungs most prominent in the upper lobes. Recommend follow-up to resolution. 5. Moderate-sized pericardial effusion. 6. Cholelithiasis. 7. Small amount of fluid and fat stranding scattered throughout the abdomen and pelvis for prominent in the right abdomen. 8. Concentric thickening of the cintron of the moderately distended bladder. Diffe rential includes incomplete bladder wall distention, cystitis or sequelae from bladder outlet obstruction. 9. Moderate nonspecific anasarca. 10. Small bilateral fat-containing inguinal hernias, larger on the right which also contains fluid Renal Ultrasound 02/08/25 14:41 IMPRESSION: 1. No hydronephrosis. Venous Doppler Study 02/08/25 17:10 IMPRESSION: 1. Deep venous thrombosis at the bilateral popliteal veins. Findings were discussed with Polo Gee, the nurse caring for the patient, at 5:18 PM. Thoracentesis Ultrasound 02/09/25 14:20 IMPRESSION: 1. Successful ultrasound-guided thoracentesis yielding 1100 mL of straw-colored fluid. Chest X-Ray 02/11/25 08:56 IMPRESSION: 1. No significant change. 2. Pleural effusions, right side larger, with bibasilar atelectasis and/or airspace disease. 3. Interstitial pulmonary edema and/or pneumonitis. Labs Labs: Laboratory Results - last 24 hr 02/11/25 02/11/25 02/11/25 07:17 11:42 13:09 WBC RBC Hgb Hct MCV MCH MCHC RDW Plt Count MPV Immature Gran % (Auto) Neut % (Auto) Lymph % (Auto) [place] % (Auto) Eos % (Auto) Baso % (Auto) Lymph # (Auto) [place] # (Auto) Eos # (Auto) Baso # (Auto) Abs Immat Gran (auto) Absolute Neuts (auto) Absolute Nucleated RBC Nucleated RBC % % Immature Plt Fraction APTT 54.7 H Sodium Potassium Chloride Carbon Dioxide Anion Gap BUN Creatinine Estim Creat Clear Calc Estimated GFR Glucose POC Capillary Glucose 131 H 132 H Calcium Phosphorus Albumin 02/11/25 02/11/25 02/11/25 16:51 19:46 21:28 WBC RBC Hgb Hct MCV MCH MCHC RDW Plt Count MPV Immature Gran % (Auto) Neut % (Auto) Lymph % (Auto) [place] % (Auto) Eos % (Auto) Baso % (Auto) Lymph # (Auto) [place] # (Auto) Eos # (Auto) Baso # (Auto) Abs Immat Gran (auto) Absolute Neuts (auto) Absolute Nucleated RBC Nucleated RBC % % Immature Plt Fraction APTT 46.4 H Sodium Potassium Chloride Carbon Dioxide Anion Gap BUN Creatinine Estim Creat Clear Calc Estimated GFR Glucose POC Capillary Glucose 91 77 Calcium Phosphorus Albumin 02/11/25 02/12/25 22:31 03:13 WBC 6.5 RBC 4.32 L Hgb 11.6 L Hct 37.6 L MCV 87.0 MCH 26.9 MCHC 30.9 L RDW 14.7 H Plt Count 124 L MPV 11.7 H Immature Gran % (Auto) 0.9 H Neut % (Auto) 83.4 H Lymph % (Auto) 8.9 L [place] % (Auto) 5.5 Eos % (Auto) 0.8 Baso % (Auto) 0.5 Lymph # (Auto) 0.58 L [place] # (Auto) 0.4 Eos # (Auto) 0.1 Baso # (Auto) 0.0 Abs Immat Gran (auto) 0.06 H Absolute Neuts (auto) 5.4 Absolute Nucleated RBC 0.000 Nucleated RBC % 0.0 % Immature Plt Fraction 7.8 APTT 127.0 H Sodium 136 L Potassium 4.7 Chloride 103 Carbon Dioxide 26 Anion Gap 7 BUN 65 H Creatinine 2.60 H Estim Creat Clear Calc 28 Estimated GFR 25 L Glucose 93 POC Capillary Glucose 147 H Calcium 8.3 L Phosphorus 4.4 Albumin 3.3 L Quality VTE Prophylaxis VTE prophylaxis: pharmacologic ordered Hospitalist [facility] Advance Care Plan I have confirmed that the patient's Advanced Care Plan is present, code status is documented, or surrogate decision maker is listed in patient medical record.: Yes Medication Reconciliation I have utilized all available resources to obtain, update and review the patients current medications (includes all prescriptions, OTC, herbals, cannabis, and nutritional supplements).: Yes
[2025-02-12] MEDS: INSULIN ASPART (*BKC) 100 UNITS/ML SUB-Q ×3 (09:46→17:20)
[2025-02-12] MEDS: INSULIN GLARGINE (*BKC) 100 UNITS/ML SUB-Q (09:46)
[2025-02-12 10:04] LABS: Partial Thromboplastin Time 59.9 Seconds (22.3-36.8)
[2025-02-12] MEDS: cefTRIAXone 2 GM in SODIUM CHLORIDE 0.9% IV 100 ML 200 ML IVPB (10:07)
[2025-02-12] MEDS: UMECLIDINIUM/VILANTEROL 62.5-25 MCG ELLIPTA 1 PUFF INHALATION (12:30)
--- NOTE | 2025-02-12 12:54 | PM.PNNEP ---
Progress Note: A&P Assessment and Plan (1) Acute kidney injury: Code(s): N17.9 - Acute kidney failure, unspecified Status: Acute Assessment and Plan: slow improvement as noted since hospitalization (admission creatinine 1.52mg/dl) significant rise noted on 02/08 (1.61 --> 2.57mg/dL) only previous labs to compare are from October 2022 - creatinine normal at that time (0.80mg/dL) unclear if a component of chronic renal insufficiency/CKD at baseline...but risk factors noted: suboptimal diabetes control complicated by PVD + diabetic retinopathy hypertension CHF smoker history of polysubstance abuse hepatitis C suspect multifactorial etiology: fluctuating hemodynamics infection/sepsis (UTI +/- pneumonia) CHF exacerbation IV diuretic therapy contrast exposure (CTA on 02/06) - suspect this is reason for rise in creatinine on 02/08 hypoxia other (?) evaluation to date noted: renal ultrasound w/o obstruction urine electrolytes (by FeUrea) prerenal urine eosinophils negative nephrotic range proteinuria CPK normal initial UA suggest infection no critical electrolytes but difficult to assess if adequate urine output follow-up on serologies trial dose of bumex 1.5gm IV x 1 today follow trend of repeat labs and UOP (2) Acute hypoxic respiratory failure: Code(s): J96.01 - Acute respiratory failure with hypoxia Status: Acute Assessment and Plan: complicated by hypercapnia (as noted by ABGs) does not wear supplemental oxygen at baseline due to several issues: bilateral pleural effusions CHF exacerbation volume overload pneumonia (?) underlying reactive airway disease/COPD (?) -- although no evidence by imaging pericardial effusion complicated by extensive smoking history s/p thoracentesis x 2 (left on 02/09 and right on 02/08) pleural fluid analysis without evidence of infection/transudative Pulmonary following with recommendations noted unable to tolerated AVAPS continue nebulizer treatments/inhalers wean O2 as tolerated continue therapy as outlined (3) Congestive heart failure: Qualifiers: Heart failure chronicity: acute Heart failure type: unspecified Qualified Code(s): I50.9 - Heart failure, unspecified Code(s): I50.9 - Heart failure, unspecified Status: Suspected Assessment and Plan: suspected on admission Echo (on 02/07) noted: left ventricular systolic function is mildly reduced, estimated at 45 - 50% (inferior/posterior hypokinesia) left ventricular diastolic function is grade II diastolic dysfunction mild aortic valve sclerosis. mild mitral regurgitation mildly enlarged ascending aorta, 4.2cm rivial posterior pericardial effusion elevated BNP noted imaging noted on admission noted: CXR: CHF. Superimposed probable pneumonia CTA C/A/P: no pulmonary embolism identified; moderate-sized bilateral pleural effusions; moderate-sized consolidations in the lower lobes and right middle lobe; small to moderate size ground glass opacity scattered throughout both lungs most prominent in the upper lobes; moderate-sized pericardial effusion. initiated on IV diuresis but on hold due to #1 since renal function better, trial dose of IV diuretics (IV bumex today) (4) Pleural effusion: Code(s): J90 - Pleural effusion, not elsewhere classified Status: Acute Assessment and Plan: as noted by admission imaging s/p left (on 02/09) and right (on 02/08) thoracentesis 1100cc removed on right 1100cc removed on left pleural fluid analysis noted (see #2) re-attempt at diuresis since renal function improved - IV bumex today alternatively, consider repeat thoracentesis follow repeat imaging (5) Pneumonia: Qualifiers: Laterality: bilateral Lung location: unspecified part of lung Pneumonia type: due to unspecified organism Qualified Code(s): J18.9 - Pneumonia, unspecified organism Code(s): J18.9 - Pneumonia, unspecified organism Status: Acute Assessment and Plan: admission CXR and CT chest suggestive however, no fevers and normal WBC; but noted hypoxia viral testing for influenza/RSV/COVID negative extended respiratory viral pathogen panel negative as well follow culture data furthermore, pleural fluid analysis argues against infection on antibiotics (6) UTI (urinary tract infection): Qualifiers: Hematuria presence: with hematuria Urinary tract infection type: acute cystitis Qualified Code(s): N30.01 - Acute cystitis with hematuria Code(s): N39.0 - Urinary tract infection, site not specified Status: Acute Assessment and Plan: admission UA suggestive urine culture with Serratia marcescens on antibiotics (7) Paroxysmal atrial fibrillation: Code(s): I48.0 - Paroxysmal atrial fibrillation Status: Chronic Assessment and Plan: known history rate controlled on anticoagulation (8) Anemia: Code(s): D64.9 - Anemia, unspecified Status: Acute Assessment and Plan: presumably secondary to GERONIMO and acute illness no need for YOHANA at this time follow trend of H/H (9) HTN (hypertension): Qualifiers: Hypertension type: primary hypertension Qualified Code(s): I10 - Essential (primary) hypertension Code(s): I10 - Essential (primary) hypertension Status: Chronic Assessment and Plan: elevated on admission no outpatient medications started on medications during this hospitalization follow trend of hemodynamics (10) Diabetes: Qualifiers: Diabetes mellitus complication status: without complication Diabetes mellitus half-way insulin use: with exterminator helper use Diabetes mellitus type: type 2 Qualified Code(s): E11.9 - Type 2 diabetes mellitus without complications; Z79.4 - exterminator helper (current) use of insulin Code(s): E11.9 - Type 2 diabetes mellitus without complications Status: Chronic Assessment and Plan: suboptimal control at baseline was not taking any outpatient medications follow accu-cheks glycemic control per hospitalist Will continue to follow. Time Spent With Patient Time: 56 minutes Subjective Date/time seen: 02/12/25 12:54 Interval history: Follow-up for acute kidney injury/acute renal failure (on chronic kidney disease?). No apparent distress noted at the time of my visit; renal function/creatinine appears to be improving; respiratory status/breathing seems to be getting better as well; no apparent distress voiced when seen. Exam Narrative: General: elderly male in NAD Heart: normal S1 and S2; no rub Lungs: coarse with decreased breath sounds at bases (R>L) Abdomen: soft, nontender, nondistended, positive bowel sounds Extremities: no cyanosis or clubbing; no edema; s/p bilateral BKAs Skin: warm and intact Objective Data Vital Signs Vital Signs: Vital Signs Temp Pulse Resp BP Pulse Ox O2 Del Method O2 Flow Rate 02/12/25 12:32 91 High Flow Nasal Cannula 3 02/12/25 12:00 94 02/12/25 09:45 92 Nasal Cannula 2 02/12/25 08:00 90 02/12/25 04:57 98.4 F 93 20 165/83 H 90 02/12/25 04:00 93 02/11/25 21:22 97.6 F 93 18 149/76 H 97 02/11/25 20:00 95 02/11/25 20:00 93 18 97 Room Air Intake/Output Intake/Output: Intake & Output 02/09/25 02/10/25 02/11/25 02/12/25 23:59 23:59 23:59 23:59 Intake Total 565.2 1977 827.2 861.1 Output Total 1100 150 Balance -534.8 1977 677.2 861.1 Meds/Results Medications: Active Medications Generic Name Dose Route Start Last Admin Trade Name Freq PRN Reason Stop Dose Admin Acetaminophen 650 mg 02/06/25 15:03 Acetaminophen 325 Mg Tablet PO Q4H PRN Mild Pain (1-3) or Fever Amlodipine Besylate 5 mg 02/12/25 09:00 02/12/25 09:46 Amlodipine Besylate 5 Mg Tablet PO 5 mg DAILY OMI Administration Benzonatate 100 mg 02/06/25 16:24 Benzonatate 100 Mg Capsule PO TID PRN Cough Dextrose 12.5 gm 02/06/25 15:03 Dextrose 50% 25 Gm/50 Ml Syringe IV PUSH PRN PRN Hypoglycemia Protocol Enoxaparin Sodium 40 mg 02/07/25 09:00 02/08/25 07:56 Enoxaparin 40 Mg/0.4 Ml Syringe SUB-Q Not Given On Hold: 02/08/25 11:15 DAILY OMI Glucagon 1 mg 02/06/25 15:03 02/11/25 21:37 Glucagon For Inj 1 Mg Vial IM 1 mg PRN PRN Administration Hypoglycemia Protocol Glucose 15 gm 02/06/25 15:03 Glucose Oral Gel 15 Gm Of Glucse In 37.5 Gm Tube PO PRN PRN Hypoglycemia Protocol Guaifenesin 1,200 mg 02/08/25 21:00 02/10/25 11:48 Guaifenesin 12 Hr 600 Mg Tabcr PO Not Given On Hold: 02/10/25 09:50 Q12HR [facility] Heparin Sodium (Porcine) 3,500 units 02/08/25 18:05 02/12/25 10:21 Heparin Sodium 5,000 Units/Ml Vial IV PUSH 3,500 units PRN PRN Administration aPTT 55 - 70 seconds Heparin Sodium (Porcine) 4,000 units 02/08/25 22:06 02/11/25 21:03 Heparin Sodium 5,000 Units/Ml Vial IV PUSH 4,000 units PRN PRN Administration aPTT less than 55 seconds Hydralazine HCl 25 mg 02/07/25 17:12 Hydralazine Hcl 25 Mg Tablet PO Q8H PRN Hypertensive Emergency Dextrose 1,000 mls @ 100 mls/hr 02/06/25 15:03 Dextrose 5% 1,000 Ml IVPB PRN PRN Hypoglycemia Protocol Heparin Sodium/Dextrose 25,000 units in 250 mls @ 14 mls/hr 02/08/25 22:05 02/12/25 16:37 Heparin Sodium/D5w 100 Units/Ml IV CONT 1,400 units/hr .[id number] OMI 14 mls/hr Protocol Administration 1,400 UNITS/HR Ceftriaxone Sodium 2 gm/ 100 mls @ 200 mls/hr 02/10/25 11:00 02/12/25 10:07 Sodium Chloride IVPB 200 mls/hr Q24H OMI Administration Insulin Aspart 2 - 5 units 02/06/25 17:00 02/12/25 17:21 Insulin Aspart (*Bkc) 100 Units/Ml SUB-Q Not Given TIDWM OMI Protocol Insulin Aspart 3 units 02/11/25 08:00 02/12/25 17:20 Insulin Aspart (*Bkc) 100 Units/Ml SUB-Q 3 units TIDWM OMI Administration Insulin Glargine 5 units 02/11/25 09:00 02/12/25 09:46 Insulin Glargine (*Bkc) 100 Units/Ml SUB-Q 5 units DAILY OMI Administration Ondansetron HCl 4 mg 02/06/25 15:03 Ondansetron Inj 4 Mg/2 Ml Vial IV PUSH Q4H PRN Nausea Umeclidinium/Vilanterol 1 puff 02/10/25 10:35 02/12/25 12:30 Umeclidinium/Vilanterol 62.5-25 Mcg Ellipta INHALATION 1 puff DAILYRT OMI Administration Radiology Results: ITS Impressions Head CT 02/06/25 12:24 IMPRESSION: 1. No acute intracranial findings. Chest/Abdomen/Pelvis CTA 02/06/25 13:40 IMPRESSION: 1. No pulmonary embolism identified. 2. Moderate-sized bilateral pleural effusions. 3. Moderate-sized consolidations in the lower lobes and right middle lobe. Recommend follow-up to resolution. 4. Small to moderate size ground glass opacity scattered throughout both lungs most prominent in the upper lobes. Recommend follow-up to resolution. 5. Moderate-sized pericardial effusion. 6. Cholelithiasis. 7. Small amount of fluid and fat stranding scattered throughout the abdomen and pelvis for prominent in the right abdomen. 8. Concentric thickening of the cintron of the moderately distended bladder. Differential includes incomplete bladder wall distention, cystitis or sequelae from bladder outlet obstruction. 9. Moderate nonspecific anasarca. 10. Small bilateral fat-containing inguinal hernias, larger on the right which also contains fluid Renal Ultrasound 02/08/25 14:41 IMPRESSION: 1. No hydronephrosis. Venous Doppler Study 02/08/25 17:10 IMPRESSION: 1. Deep venous thrombosis at the bilateral popliteal veins. Findings were discussed with Polo Gee, the nurse caring for the patient, at 5:18 PM. Thoracentesis Ultrasound 02/09/25 14:20 IMPRESSION: 1. Successful ultrasound-guided thoracentesis yielding 1100 mL of straw-colored fluid. Chest X-Ray 02/11/25 08:56 IMPRESSION: 1. No significant change. 2. Pleural effusions, right side larger, with bibasilar atelectasis and/or airspace disease. 3. Interstitial pulmonary edema and/or pneumonitis. Labs Labs: Laboratory Tests 02/12/25 03:13 02/12/25 03:13 Calcium 8.3 L Phosphorus 4.4 Albumin 3.3 L Microbiology 02/06/25 13:05 Blood Blood Culture - Final 02/06/25 13:03 Blood Blood Culture - Final
--- NOTE | 2025-02-12 12:54 | P.PNNP_ITS ---
Progress Note: A&P Assessment and Plan (1) Acute kidney injury: Code(s): N17.9 - Acute kidney failure, unspecified Status: Acute Assessment and Plan: * slow improvement * as noted since hospitalization (admission creatinine 1.52mg/dl) * significant rise noted on 02/08 (1.61 --> 2.57mg/dL) * only previous labs to compare are from October 2022 - creatinine normal at that time (0.80mg/dL) * unclear if a component of chronic renal insufficiency/CKD at baseline...but risk factors noted: * suboptimal diabetes control complicated by PVD + diabetic retinopathy * hypertension * CHF * smoker * history of polysubstance abuse * hepatitis C * suspect multifactorial etiology: * fluctuating hemodynamics * infection/sepsis (UTI +/- pneumonia) * CHF exacerbation * IV diuretic therapy * contrast exposure (CTA on 02/06) - suspect this is reason for rise in creatinine on 02/08 * hypoxia * other (?) * evaluation to date noted: * renal ultrasound w/o obstruction * urine electrolytes (by FeUrea) prerenal * urine eosinophils negative * nephrotic range proteinuria * CPK normal * initial UA suggest infection * no critical electrolytes but difficult to assess if adequate urine output * follow-up on serologies * trial dose of bumex 1.5gm IV x 1 today * follow trend of repeat labs and UOP (2) Acute hypoxic respiratory failure: Code(s): J96.01 - Acute respiratory failure with hypoxia Status: Acute Assessment and Plan: * complicated by hypercapnia (as noted by ABGs) * does not wear supplemental oxygen at baseline * due to several issues: * bilateral pleural effusions * CHF exacerbation * volume overload * pneumonia (?) * underlying reactive airway disease/COPD (?) -- although no evidence by imaging * pericardial effusion * complicated by extensive smoking history * s/p thoracentesis x 2 (left on 02/09 and right on 02/08) * pleural fluid analysis without evidence of infection/transudative * Pulmonary following with recommendations noted * unable to tolerated AVAPS * continue nebulizer treatments/inhalers * wean O2 as tolerated * continue therapy as outlined (3) Congestive heart failure: Qualifiers: Heart failure chronicity: acute Heart failure type: unspecified Q ualified Code(s): I50.9 - Heart failure, unspecified Code(s): I50.9 - Heart failure, unspecified Status: Suspected Assessment and Plan: * suspected on admission * Echo (on 02/07) noted: * left ventricular systolic function is mildly reduced, estimated at 45 - 50% (inferior/posterior hypokinesia) * left ventricular diastolic function is grade II diastolic dysfunction * mild aortic valve sclerosis. * mild mitral regurgitation * mildly enlarged ascending aorta, 4.2cm * rivial posterior pericardial effusion * elevated BNP noted * imaging noted on admission noted: * CXR: CHF. Superimposed probable pneumonia * CTA C/A/P: no pulmonary embolism identified; moderate-sized bilateral pleural effusions; moderate-sized consolidations in the lower lobes and right middle lobe; small to moderate size ground glass opacity scattered throughout both lungs most prominent in the upper lobes; moderate-sized pericardial effusion. * initiated on IV diuresis but on hold due to #1 * since renal function better, trial dose of IV diuretics (IV bumex today) (4) Pleural effusion: Code(s): J90 - Pleural effusion, not elsewhere classified Status: Acute Assessment and Plan: * as noted by admission imaging * s/p left (on 02/09) and right (on 02/08) thoracentesis * 1100cc removed on right * 1100cc removed on left * pleural fluid analysis noted (see #2) * re-attempt at diuresis since renal function improved - IV bumex today * alternatively, consider repeat thoracentesis * follow repeat imaging (5) Pneumonia: Qualifiers: Laterality: bilateral Lung location: unspecified part of lung P neumonia type: due to unspecified organism Qualified Code(s): J18.9 - Pneumonia, unspecified organism Code(s): J18.9 - Pneumonia, unspecified organism Status: Acute Assessment and Plan: * admission CXR and CT chest suggestive * however, no fevers and normal WBC; but noted hypoxia * viral testing for influenza/RSV/COVID negative * extended respiratory viral pathogen panel negative as well * follow culture data * furthermore, pleural fluid analysis argues against infection * on antibiotics (6) UTI (urinary tract infection): Qualifiers: Hematuria presence: with hematuria Urinary tract infection type: acute cystitis Qualified Code(s): N30.01 - Acute cystitis with hematuria Code(s): N39.0 - Urinary tract infection, site not specified Status: Acute Assessment and Plan: * admission UA suggestive * urine culture with Serratia marcescens * on antibiotics (7) Paroxysmal atrial fibrillation: Code(s): I48.0 - Paroxysmal atrial fibrillation Status: Chronic Assessment and Plan: * known history * rate controlled * on anticoagulation (8) Anemia: Code(s): D64.9 - Anemia, unspecified Status: Acute Assessment and Plan: * presumably secondary to GERONIMO and acute illness * no need for YOHANA at this time * follow trend of H/H (9) HTN (hypertension): Qualifiers: Hypertension type: primary hypertension Qualified Code(s): I10 - Essential (primary) hypertension Code(s): I10 - Essential (primary) hypertension Status: Chronic Assessment and Plan: * elevated on admission * no outpatient medications * started on medications during this hospitalization * follow trend of hemodynamics (10) Diabetes: Qualifiers: Diabetes mellitus complication status: without complication Diabetes mellitus intermission coordinator insulin use: with intermission coordinator use Diabetes mellitus type: type 2 Qualified Code(s): E11.9 - Type 2 diabetes mellitus without complications; Z79.4 - custodial (current) use of insulin Code(s): E11.9 - Type 2 diabetes mellitus without complications Status: Chronic Assessment and Plan: * suboptimal control at baseline * was not taking any outpatient medications * follow accu-cheks * glycemic control per hospitalist Will continue to follow. L Time Spent With Patient Time: 56 minutes Subjective Date/time seen: 02/12/25 12:54 Interval history: Follow-up for acute kidney injury/acute renal failure (on chronic kidney disease?). No apparent distress noted at the time of my visit; renal function/creatinine appears to be improving; respiratory status/breathing seems to be getting better as well; no apparent distress voiced when seen. Exam 2 Narrative: General: elderly male in NAD Heart: normal S1 and S2; no rub Lungs: coarse with decreased breath sounds at bases (R>L) Abdomen: soft, nontender, nondistended, positive bowel sounds Extremities: no cyanosis or clubbing; no edema; s/p bilateral BKAs Skin: warm and intact Objective Data Vital Signs Vital Signs: Vital Signs Temp Pulse Resp BP Pulse Ox O2 Del Method O2 Flow Rate 02/12/25 12:32 91 High Flow Nasal Cannula 3 02/12/25 12:00 94 02/12/25 09:45 92 Nasal Cannula 2 02/12/25 08:00 90 02/12/25 04:57 98.4 F 93 20 165/83 H 90 02/12/25 04:00 93 02/11/25 21:22 97.6 F 93 18 149/76 H 97 02/11/25 20:00 95 02/11/25 20:00 93 18 97 Room Air Intake/Output Intake/Output: Intake & Output 02/09/25 02/10/25 02/11/25 02/12/25 23:59 23:59 23:59 23:59 Intake Total 565.2 1977 827.2 861.1 Output Total 1100 150 Balance -534.8 1977 677.2 861.1 Meds/Results Medications: Active Medications Generic Name Dose Route Start Last Admin Trade Name Freq PRN Reason Stop Dose Admin Acetaminophen 650 mg 02/06/25 15:03 Acetaminophen 325 Mg Tablet PO Q4H PRN Mild Pain (1-3) or Fever Amlodipine Besylate 5 mg 02/12/25 09:00 02/12/25 09:46 Amlodipine Besylate 5 Mg Tablet PO 5 mg DAILY OMI Administration Benzonatate 100 mg 02/06/25 16:24 Benzonatate 100 Mg Capsule PO TID PRN Cough Dextrose 12.5 gm 02/06/25 15:03 Dextrose 50% 25 Gm/50 Ml Syringe IV PUSH PRN PRN Hypoglycemia Protocol Enoxaparin Sodium 40 mg 02/07/25 09:00 02/08/25 07:56 Enoxaparin 40 Mg/0.4 Ml Syringe SUB-Q Not Given On Hold: 02/08/25 11:15 DAILY OMI Glucagon 1 mg 02/06/25 15:03 02/11/25 21:37 Glucagon For Inj 1 Mg Vial IM 1 mg PRN PRN Administration Hypoglycemia Protocol Glucose 15 gm 02/06/25 15:03 Glucose Oral Gel 15 Gm Of Glucse In 37.5 Gm Tube PO PRN PRN Hypoglycemia Protocol Guaifenesin 1,200 mg 02/08/25 21:00 02/10/25 11:48 Guaifenesin 12 Hr 600 Mg Tabcr PO Not Given On Hold: 02/10/25 09:50 Q12HR OMI Heparin Sodium (Porcine) 3,500 units 02/08/25 18:05 02/12/25 10:21 Heparin Sodium 5,000 Units/Ml Vial IV PUSH 3,500 units PRN PRN Administration aPTT 55 - 70 seconds Heparin Sodium (Porcine) 4,000 units 02/08/25 22:06 02/11/25 21:03 Heparin Sodium 5,000 Units/Ml Vial IV PUSH 4,000 units PRN PRN Administration aPTT less than 55 seconds Hydralazine HCl 25 mg 02/07/25 17:12 Hydralazine Hcl 25 Mg Tablet PO Q8H PRN Hypertensive Emergency Dextrose 1,000 mls @ 100 mls/hr 02/06/25 15:03 Dextrose 5% 1,000 Ml IVPB PRN PRN Hypoglycemia Protocol Heparin Sodium/Dextrose 25,000 units in 250 mls @ 14 mls/hr 02/08/25 22:05 02/12/25 16:37 Heparin Sodium/D5w 100 Units/Ml IV CONT 1,400 units/hr .[id number] OMI 14 mls/hr Protocol Administration 1,400 UNITS/HR Ceftriaxone Sodium 2 gm/ 100 mls @ 200 mls/hr 02/10/25 11:00 02/12/25 10:07 Sodium Chloride IVPB 200 mls/hr Q24H OMI Administration Insulin Aspart 2 - 5 units 02/06/25 17:00 02/12/25 17:21 Insulin Aspart (*Bkc) 100 Units/Ml SUB-Q Not Given TIDWM OMI Protocol Insulin Aspart 3 units 02/11/25 08:00 02/12/25 17:20 Insulin Aspart (*Bkc) 100 Units/Ml SUB-Q 3 units TIDWM OMI Administration Insulin Glargine 5 units 02/11/25 09:00 02/12/25 09:46 Insulin Glargine (*Bkc) 100 Units/Ml SUB-Q 5 units DAILY OMI Administration Ondansetron HCl 4 mg 02/06/25 15:03 Ondansetron Inj 4 Mg/2 Ml Vial IV PUSH Q4H PRN Nausea Umeclidinium/Vilanterol 1 puff 02/10/25 10:35 02/12/25 12:30 Umeclidinium/Vilanterol 62.5-25 Mcg Ellipta INHALATION 1 puff DAILYRT OMI Administration Radiology Results: ITS Impressions Head CT 02/06/25 12:24 IMPRESSION: 1. No acute intracranial findings. Chest/Abdomen/Pelvis CTA 02/06/25 13:40 IMPRESSION: 1. No pulmonary embolism identified. 2. Moderate-sized bilateral pleural effusions. 3. Moderate-sized consolidations in the lower lobes and right middle lobe. Recommend follow-up to resolution. 4. Small to moderate size ground glass opacity scattered throughout both lungs most prominent in the upper lobes. Recommend follow-up to resolution. 5. Moderate-sized pericardial effusion. 6. Cholelithiasis. 7. Small amount of fluid and fat stranding scattered throughout the abdomen and pelvis for prominent in the right abdomen. 8. Concentric thickening of the cintron of the moderately distended bladder. Differential includes incomplete bladder wall distention, cystitis or sequelae from bladder outlet obstruction. 9. Moderate nonspecific anasarca. 10. Small bilateral fat-containing inguinal hernias, larger on the right which also contains fluid Renal Ultrasound 02/08/25 14:41 IMPRESSION: 1. No hydronephrosis. Venous Doppler Study 02/08/25 17:10 IMPRESSION: 1. Deep venous thrombosis at the bilateral popliteal veins. Findings were discussed with Polo Gee, the nurse caring for the patient, at 5:18 PM. Thoracentesis Ultrasound 02/09/25 14:20 IMPRESSION: 1. Successful ultrasound-guided thoracentesis yielding 1100 mL of straw-colored fluid. Chest X-Ray 02/11/25 08:56 IMPRESSION: 1. No significant change. 2. Pleural effusions, right side larger, with bibasilar atelectasis and/or airspace disease. 3. Interstitial pulmonary edema and/or pneumonitis. Labs Labs: Laboratory Tests 02/12/25 03:13 02/12/25 03:13 Calcium 8.3 L Phosphorus 4.4 Albumin 3.3 L Microbiology 02/06/25 13:05 Blood Blood Culture - Final 02/06/25 13:03 Blood Blood Culture - Final
[2025-02-12 16:29] LABS: Partial Thromboplastin Time 87.8 Seconds (22.3-36.8)
[2025-02-12] MEDS: HEPARIN SOD/D5W 100 UNITS/ML 25,000 UNITS/250 ML BAG 14 UNITS IV CONT (16:37)
[2025-02-12 23:19] LABS: Partial Thromboplastin Time 50.0 Seconds (22.3-36.8)
[2025-02-13] VITALS (10 sets, daily range): BP systolic 148–149; BP diastolic 72–84; PULSE 90–94; RESP 18–20; TEMP 36.6–36.7; O2SAT 91–99; BMI 24.0
[2025-02-13 01:12] LABS: MRSA (PCR) NOT DETECTED (NOT DETECTE)
[2025-02-13 05:50] LABS: Hematocrit 35.7 % (42.0-52.0); Hemoglobin 10.9 g/dL (14.0-18.0); Immature Granulocyte Percent A 0.8 % (0-0.5); Immature Platelet Fraction Pct 8.7 % (0.9-11.2); Lymphocytes Absolute Auto 0.60 K/mm3 (0.9-3.2); Mean Corpuscular HGB Conc 30.5 g/dl (32-36); Mean Corpuscular Hemoglobin 26.8 pg (26-34); Mean Corpuscular Volume 87.7 fl (80-100); Nucleated Red Blood Cells Absolute Auto 0.000 K/mm3 (0.0-0.012); Nucleated Red Blood Cells Perc 0.0 % (0.0-0.2); Platelet Count Result 105 k/mm3 (150-375); Red Blood Count 4.07 M/mm3 (4.6-6.20); White Blood Count 5.0 K/mm3 (4.5-10.0)
[2025-02-13 06:09] LABS: Albumin Level 3.0 g/dL (3.5-5.1); Anion Gap 2 mmol/L (4-12); Carbon Dioxide 32 mmol/L (22-30); Chloride 103 mmol/L (98-107); Potassium 4.9 mmol/L (3.4-5.0); Sodium 137 mmol/L (137-145)
[2025-02-13 06:21] LABS: Partial Thromboplastin Time 191.5 Seconds (22.3-36.8)
[2025-02-13 06:22] LABS: Blood Urea Nitrogen 58 mg/dL (9-20); Calcium 8.3 mg/dL (8.4-10.2); Estimated CRCL calculation 35 ml/min; Estimated Glomerular Filt Rate 32; Glucose 135 mg/dL (65-110)
[2025-02-13] MEDS: INSULIN ASPART (*BKC) 100 UNITS/ML SUB-Q ×3 (08:07→17:26)
[2025-02-13] MEDS: INSULIN GLARGINE (*BKC) 100 UNITS/ML SUB-Q (08:07)
[2025-02-13] MEDS: HEPARIN SOD/D5W 100 UNITS/ML 25,000 UNITS/250 ML BAG 15 UNITS IV CONT (10:38)
--- NOTE | 2025-02-13 11:20 | PM.PNNEP ---
Progress Note: A&P Assessment and Plan (1) Acute kidney injury: Code(s): N17.9 - Acute kidney failure, unspecified Status: Acute Assessment and Plan: slow improvement as noted since hospitalization (admission creatinine 1.52mg/dl) significant rise noted on 02/08 (1.61 --> 2.57mg/dL) only previous labs to compare are from October 2022 - creatinine normal at that time (0.80mg/dL) unclear if a component of chronic renal insufficiency/CKD at baseline...but risk factors noted: suboptimal diabetes control complicated by PVD + diabetic retinopathy hypertension CHF smoker history of polysubstance abuse hepatitis C suspect multifactorial etiology: fluctuating hemodynamics infection/sepsis (UTI +/- pneumonia) CHF exacerbation IV diuretic therapy contrast exposure (CTA on 02/06) - suspect this is reason for rise in creatinine on 02/08 hypoxia other (?) evaluation to date noted: renal ultrasound w/o obstruction urine electrolytes (by FeUrea) prerenal urine eosinophils negative nephrotic range proteinuria CPK normal initial UA suggest infection no critical electrolytes but difficult to assess if adequate urine output follow-up on serologies will give another dose of bumex 1.5gm IV x 1 today (given CXR findings) follow trend of repeat labs and UOP (2) Acute hypoxic respiratory failure: Code(s): J96.01 - Acute respiratory failure with hypoxia Status: Acute Assessment and Plan: complicated by hypercapnia (as noted by ABGs) does not wear supplemental oxygen at baseline due to several issues: bilateral pleural effusions CHF exacerbation volume overload pneumonia (?) underlying reactive airway disease/COPD (?) -- although no evidence by imaging pericardial effusion complicated by extensive smoking history s/p thoracentesis x 2 (left on 02/09 and right on 02/08) pleural fluid analysis without evidence of infection/transudative Pulmonary following with recommendations noted unable to tolerated AVAPS continue nebulizer treatments/inhalers wean O2 as tolerated continue therapy as outlined (3) Congestive heart failure: Qualifiers: Heart failure type: unspecified Heart failure chronicity: acute Qualified Code(s): I50.9 - Heart failure, unspecified Code(s): I50.9 - Heart failure, unspecified Status: Suspected Assessment and Plan: suspected on admission Echo (on 02/07) noted: left ventricular systolic function is mildly reduced, estimated at 45 - 50% (inferior/posterior hypokinesia) left ventricular diastolic function is grade II diastolic dysfunction mild aortic valve sclerosis. mild mitral regurgitation mildly enlarged ascending aorta, 4.2cm rivial posterior pericardial effusion elevated BNP noted imaging noted on admission noted: CXR: CHF. Superimposed probable pneumonia CTA C/A/P: no pulmonary embolism identified; moderate-sized bilateral pleural effusions; moderate-sized consolidations in the lower lobes and right middle lobe; small to moderate size ground glass opacity scattered throughout both lungs most prominent in the upper lobes; moderate-sized pericardial effusion. since renal function better, dose with IV diuretics (IV bumex today) (4) Pleural effusion: Code(s): J90 - Pleural effusion, not elsewhere classified Status: Acute Assessment and Plan: as noted by admission imaging s/p left (on 02/09) and right (on 02/08) thoracentesis 1100cc removed on right 1100cc removed on left pleural fluid analysis noted (see #2) re-attempt at diuresis since renal function improved - IV bumex today alternatively, consider repeat thoracentesis follow repeat imaging (5) Pneumonia: Qualifiers: Laterality: bilateral Lung location: unspecified part of lung Pneumonia type: due to unspecified organism Qualified Code(s): J18.9 - Pneumonia, unspecified organism Code(s): J18.9 - Pneumonia, unspecified organism Status: Acute Assessment and Plan: admission CXR and CT chest suggestive however, no fevers and normal WBC; but noted hypoxia viral testing for influenza/RSV/COVID negative extended respiratory viral pathogen panel negative as well follow culture data furthermore, pleural fluid analysis argues against infection on antibiotics (6) UTI (urinary tract infection): Qualifiers: Hematuria presence: with hematuria Urinary tract infection type: acute cystitis Qualified Code(s): N30.01 - Acute cystitis with hematuria Code(s): N39.0 - Urinary tract infection, site not specified Status: Acute Assessment and Plan: admission UA suggestive urine culture with Serratia marcescens on antibiotics (7) Paroxysmal atrial fibrillation: Code(s): I48.0 - Paroxysmal atrial fibrillation Status: Chronic Assessment and Plan: known history rate controlled on anticoagulation (8) Anemia: Code(s): D64.9 - Anemia, unspecified Status: Acute Assessment and Plan: presumably secondary to GERONIMO and acute illness no need for YOHANA at this time follow trend of H/H (9) HTN (hypertension): Qualifiers: Hypertension type: primary hypertension Qualified Code(s): I10 - Essential (primary) hypertension Code(s): I10 - Essential (primary) hypertension Status: Chronic Assessment and Plan: elevated on admission no outpatient medications started on medications during this hospitalization follow trend of hemodynamics (10) Diabetes: Qualifiers: Diabetes mellitus type: type 2 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 Time Spent With Patient Time: 56 minutes Subjective Date/time seen: 02/13/25 11:20 Interval history: Follow-up for acute kidney injury/acute renal failure (on chronic kidney disease?). Renal function/creatinine seems to be slowly improving; breathing/respiratory status seems stable if not with slow improvement; tolerated trial dose of IV bumex yesterday but difficult to gauge response given urine incontinence; no apparent distress noted. Exam Narrative: General: elderly male in NAD Heart: normal S1 and S2; no rub Lungs: coarse with decreased breath sounds at bases Abdomen: soft, nontender, nondistended, positive bowel sounds Extremities: no cyanosis or clubbing; no edema; s/p bilateral BKAs Skin: no rash Objective Data Vital Signs Vital Signs: Vital Signs Temp Pulse Resp BP Pulse Ox O2 Del Method O2 Flow Rate 02/13/25 08:00 92 02/13/25 08:00 97 Nasal Cannula 3 02/13/25 04:00 94 02/13/25 03:46 98.0 F 93 20 148/81 H 91 02/13/25 00:00 93 02/12/25 20:03 97.8 F 94 18 147/74 H 97 02/12/25 20:00 94 02/12/25 20:00 91 Nasal Cannula 3 Intake/Output Intake/Output: Intake & Output 02/10/25 02/11/25 02/12/25 02/13/25 23:59 23:59 23:59 23:59 Intake Total 1977 827.2 2396.8 1305.8 Output Total 150 Balance 1977 677.2 2396.8 1305.8 Meds/Results Medications: Active Medications Generic Name Dose Route Start Last Admin Trade Name Freq PRN Reason Stop Dose Admin Acetaminophen 650 mg 02/06/25 15:03 Acetaminophen 325 Mg Tablet PO Q4H PRN Mild Pain (1-3) or Fever Amlodipine Besylate 5 mg 02/12/25 09:00 02/13/25 08:07 Amlodipine Besylate 5 Mg Tablet PO 5 mg DAILY OMI Administration Apixaban 5 mg 02/13/25 21:00 Apixaban 5 Mg Tablet PO Q12HR [facility] Benzonatate 100 mg 02/06/25 16:24 Benzonatate 100 Mg Capsule PO TID PRN Cough Dextrose 12.5 gm 02/06/25 15:03 Dextrose 50% 25 Gm/50 Ml Syringe IV PUSH PRN PRN Hypoglycemia Protocol Glucagon 1 mg 02/06/25 15:03 02/11/25 21:37 Glucagon For Inj 1 Mg Vial IM 1 mg PRN PRN Administration Hypoglycemia Protocol Glucose 15 gm 02/06/25 15:03 Glucose Oral Gel 15 Gm Of Glucse In 37.5 Gm Tube PO PRN PRN Hypoglycemia Protocol Guaifenesin 1,200 mg 02/08/25 21:00 02/10/25 11:48 Guaifenesin 12 Hr 600 Mg Tabcr PO Not Given On Hold: 02/10/25 09:50 Q12HR [facility] Heparin Sodium (Porcine) 4,000 units 02/08/25 22:06 02/12/25 23:28 Heparin Sodium 5,000 Units/Ml Vial IV PUSH 4,000 units PRN PRN Administration aPTT less than 55 seconds Hydralazine HCl 25 mg 02/07/25 17:12 Hydralazine Hcl 25 Mg Tablet PO Q8H PRN Hypertensive Emergency Dextrose 1,000 mls @ 100 mls/hr 02/06/25 15:03 Dextrose 5% 1,000 Ml IVPB PRN PRN Hypoglycemia Protocol Insulin Aspart 2 - 5 units 02/06/25 17:00 02/13/25 17:22 Insulin Aspart (*Bkc) 100 Units/Ml SUB-Q Not Given TIDWM [facility] Protocol Insulin Aspart 3 units 02/11/25 08:00 02/13/25 17:26 Insulin Aspart (*Bkc) 100 Units/Ml SUB-Q 3 units TIDWM OMI Administration Insulin Glargine 5 units 02/11/25 09:00 02/13/25 08:07 Insulin Glargine (*Bkc) 100 Units/Ml SUB-Q 5 units DAILY OMI Administration Ondansetron HCl 4 mg 02/06/25 15:03 Ondansetron Inj 4 Mg/2 Ml Vial IV PUSH Q4H PRN Nausea Umeclidinium/Vilanterol 1 puff 02/10/25 10:35 02/13/25 13:59 Umeclidinium/Vilanterol 62.5-25 Mcg Ellipta INHALATION Not Given DAILYRT [facility] Radiology Results: ITS Impressions Head CT 02/06/25 12:24 IMPRESSION: 1. No acute intracranial findings. Chest/Abdomen/Pelvis CTA 02/06/25 13:40 IMPRESSION: 1. No pulmonary embolism identified. 2. Moderate-sized bilateral pleural effusions. 3. Moderate-sized consolidations in the lower lobes and right middle lobe. Recommend follow-up to resolution. 4. Small to moderate size ground glass opacity scattered throughout both lungs most prominent in the upper lobes. Recommend follow-up to resolution. 5. Moderate-sized pericardial effusion. 6. Cholelithiasis. 7. Small amount of fluid and fat stranding scattered throughout the abdomen and pelvis for prominent in the right abdomen. 8. Concentric thickening of the cintron of the moderately distended bladder. Differential includes incomplete bladder wall distention, cystitis or sequelae from bladder outlet obstruction. 9. Moderate nonspecific anasarca. 10. Small bilateral fat-containing inguinal hernias, larger on the right which also contains fluid Renal Ultrasound 02/08/25 14:41 IMPRESSION: 1. No hydronephrosis. Venous Doppler Study 02/08/25 17:10 IMPRESSION: 1. Deep venous thrombosis at the bilateral popliteal veins. Findings were discussed with Polo Gee, the nurse caring for the patient, at 5:18 PM. Thoracentesis Ultrasound 02/09/25 14:20 IMPRESSION: 1. Successful ultrasound-guided thoracentesis yielding 1100 mL of straw-colored fluid. Chest X-Ray 02/13/25 10:27 Impression: CHF. Superimposed pneumonia. The findings appear relatively unchanged Labs Labs: Laboratory Tests 02/13/25 05:37 02/13/25 05:37 Calcium 8.3 L Phosphorus 3.7 Albumin 3.0 L Microbiology 02/06/25 13:05 Blood Blood Culture - Final 02/06/25 13:03 Blood Blood Culture - Final
--- NOTE | 2025-02-13 11:20 | P.PNNP_ITS ---
Progress Note: A&P Assessment and Plan (1) Acute kidney injury: Code(s): N17.9 - Acute kidney failure, unspecified Status: Acute Assessment and Plan: * slow improvement * as noted since hospitalization (admission creatinine 1.52mg/dl) * significant rise noted on 02/08 (1.61 --> 2.57mg/dL) * only previous labs to compare are from October 2022 - creatinine normal at that time (0.80mg/dL) * unclear if a component of chronic renal insufficiency/CKD at baseline...but risk factors noted: * suboptimal diabetes control complicated by PVD + diabetic retinopathy * hypertension * CHF * smoker * history of polysubstance abuse * hepatitis C * suspect multifactorial etiology: * fluctuating hemodynamics * infection/sepsis (UTI +/- pneumonia) * CHF exacerbation * IV diuretic therapy * contrast exposure (CTA on 02/06) - suspect this is reason for rise in creatinine on 02/08 * hypoxia * other (?) * evaluation to date noted: * renal ultrasound w/o obstruction * urine electrolytes (by FeUrea) prerenal * urine eosinophils negative * nephrotic range proteinuria * CPK normal * initial UA suggest infection * no critical electrolytes but difficult to assess if adequate urine output * follow-up on serologies * will give another dose of bumex 1.5gm IV x 1 today (given CXR findings) * follow trend of repeat labs and UOP (2) Acute hypoxic respiratory failure: Code(s): J96.01 - Acute respiratory failure with hypoxia Status: Acute Assessment and Plan: * complicated by hypercapnia (as noted by ABGs) * does not wear supplemental oxygen at baseline * due to several issues: * bilateral pleural effusions * CHF exacerbation * volume overload * pneumonia (?) * underlying reactive airway disease/COPD (?) -- although no evidence by imaging * pericardial effusion * complicated by extensive smoking history * s/p thoracentesis x 2 (left on 02/09 and right on 02/08) * pleural fluid analysis without evidence of infection/transudative * Pulmonary following with recommendations noted * unable to tolerated AVAPS * continue nebulizer treatments/inhalers * wean O2 as tolerated * continue therapy as outlined (3) Congestive heart failure: Qualifiers: Heart failure type: unspecified Heart failure chronicity: acute Q ualified Code(s): I50.9 - Heart failure, unspecified Code(s): I50.9 - Heart failure, unspecified Status: Suspected Assessment and Plan: * suspected on admission * Echo (on 02/07) noted: * left ventricular systolic function is mildly reduced, estimated at 45 - 50% (inferior/posterior hypokinesia) * left ventricular diastolic function is grade II diastolic dysfunction * mild aortic valve sclerosis. * mild mitral regurgitation * mildly enlarged ascending aorta, 4.2cm * rivial posterior pericardial effusion * elevated BNP noted * imaging noted on admission noted: * CXR: CHF. Superimposed probable pneumonia * CTA C/A/P: no pulmonary embolism identified; moderate-sized bilateral pleural effusions; moderate-sized consolidations in the lower lobes and right middle lobe; small to moderate size ground glass opacity scattered throughout both lungs most prominent in the upper lobes; moderate-sized pericardial effusion. * since renal function better, dose with IV diuretics (IV bumex today) (4) Pleural effusion: Code(s): J90 - Pleural effusion, not elsewhere classified Status: Acute Assessment and Plan: * as noted by admission imaging * s/p left (on 02/09) and right (on 02/08) thoracentesis * 1100cc removed on right * 1100cc removed on left * pleural fluid analysis noted (see #2) * re-attempt at diuresis since renal function improved - IV bumex today * alternatively, consider repeat thoracentesis * follow repeat imaging (5) Pneumonia: Qualifiers: Laterality: bilateral Lung location: unspecified part of lung P neumonia type: due to unspecified organism Qualified Code(s): J18.9 - Pneumonia, unspecified organism Code(s): J18.9 - Pneumonia, unspecified organism Status: Acute Assessment and Plan: * admission CXR and CT chest suggestive * however, no fevers and normal WBC; but noted hypoxia * viral testing for influenza/RSV/COVID negative * extended respiratory viral pathogen panel negative as well * follow culture data * furthermore, pleural fluid analysis argues against infection * on antibiotics (6) UTI (urinary tract infection): Qualifiers: Hematuria presence: with hematuria Urinary tract infection type: acute cystitis Qualified Code(s): N30.01 - Acute cystitis with hematuria Code(s): N39.0 - Urinary tract infection, site not specified Status: Acute Assessment and Plan: * admission UA suggestive * urine culture with Serratia marcescens * on antibiotics (7) Paroxysmal atrial fibrillation: Code(s): I48.0 - Paroxysmal atrial fibrillation Status: Chronic Assessment and Plan: * known history * rate controlled * on anticoagulation (8) Anemia: Code(s): D64.9 - Anemia, unspecified Status: Acute Assessment and Plan: * presumably secondary to GERONIMO and acute illness * no need for YOHANA at this time * follow trend of H/H (9) HTN (hypertension): Qualifiers: Hypertension type: primary hypertension Qualified Code(s): I10 - Essential (primary) hypertension Code(s): I10 - Essential (primary) hypertension Status: Chronic Assessment and Plan: * elevated on admission * no outpatient medications * started on medications during this hospitalization * follow trend of hemodynamics (10) Diabetes: Qualifiers: Diabetes mellitus type: type 2 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 L Time Spent With Patient Time: 56 minutes Subjective Date/time seen: 02/13/25 11:20 Interval history: Follow-up for acute kidney injury/acute renal failure (on chronic kidney disease?). Renal function/creatinine seems to be slowly improving; breathing/respiratory status seems stable if not with slow improvement; tolerated trial dose of IV bumex yesterday but difficult to gauge response given urine incontinence; no apparent distress noted. Exam 2 Narrative: General: elderly male in NAD Heart: normal S1 and S2; no rub Lungs: coarse with decreased breath sounds at bases Abdomen: soft, nontender, nondistended, positive bowel sounds Extremities: no cyanosis or clubbing; no edema; s/p bilateral BKAs Skin: no rash Objective Data Vital Signs Vital Signs: Vital Signs Temp Pulse Resp BP Pulse Ox O2 Del Method O2 Flow Rate 02/13/25 08:00 92 02/13/25 08:00 97 Nasal Cannula 3 02/13/25 04:00 94 02/13/25 03:46 98.0 F 93 20 148/81 H 91 02/13/25 00:00 93 02/12/25 20:03 97.8 F 94 18 147/74 H 97 02/12/25 20:00 94 02/12/25 20:00 91 Nasal Cannula 3 Intake/Output Intake/Output: Intake & Output 02/10/25 02/11/25 02/12/25 02/13/25 23:59 23:59 23:59 23:59 Intake Total 1977 827.2 2396.8 1305.8 Output Total 150 Balance 1977 677.2 2396.8 1305.8 Meds/Results Medications: Active Medications Generic Name Dose Route Start Last Admin Trade Name Freq PRN Reason Stop Dose Admin Acetaminophen 650 mg 02/06/25 15:03 Acetaminophen 325 Mg Tablet PO Q4H PRN Mild Pain (1-3) or Fever Amlodipine Besylate 5 mg 02/12/25 09:00 02/13/25 08:07 Amlodipine Besylate 5 Mg Tablet PO 5 mg DAILY OMI Administration Apixaban 5 mg 02/13/25 21:00 Apixaban 5 Mg Tablet PO Q12HR OMI Benzonatate 100 mg 02/06/25 16:24 Benzonatate 100 Mg Capsule PO TID PRN Cough Dextrose 12.5 gm 02/06/25 15:03 Dextrose 50% 25 Gm/50 Ml Syringe IV PUSH PRN PRN Hypoglycemia Protocol Glucagon 1 mg 02/06/25 15:03 02/11/25 21:37 Glucagon For Inj 1 Mg Vial IM 1 mg PRN PRN Administration Hypoglycemia Protocol Glucose 15 gm 02/06/25 15:03 Glucose Oral Gel 15 Gm Of Glucse In 37.5 Gm Tube PO PRN PRN Hypoglycemia Protocol Guaifenesin 1,200 mg 02/08/25 21:00 02/10/25 11:48 Guaifenesin 12 Hr 600 Mg Tabcr PO Not Given On Hold: 02/10/25 09:50 Q12HR OMI Heparin Sodium (Porcine) 4,000 units 02/08/25 22:06 02/12/25 23:28 Heparin Sodium 5,000 Units/Ml Vial IV PUSH 4,000 units PRN PRN Administration aPTT less than 55 seconds Hydralazine HCl 25 mg 02/07/25 17:12 Hydralazine Hcl 25 Mg Tablet PO Q8H PRN Hypertensive Emergency Dextrose 1,000 mls @ 100 mls/hr 09/22/25 15:03 Dextrose 5% 1,000 Ml IVPB PRN PRN Hypoglycemia Protocol Insulin Aspart 2 - 5 units 02/06/25 17:00 02/13/25 17:22 Insulin Aspart (*Bkc) 100 Units/Ml SUB-Q Not Given TIDWM OMI Protocol Insulin Aspart 3 units 02/11/25 08:00 02/13/25 17:26 Insulin Aspart (*Bkc) 100 Units/Ml SUB-Q 3 units TIDWM OMI Administration Insulin Glargine 5 units 02/11/25 09:00 02/13/25 08:07 Insulin Glargine (*Bkc) 100 Units/Ml SUB-Q 5 units DAILY OMI Administration Ondansetron HCl 4 mg 02/06/25 15:03 Ondansetron Inj 4 Mg/2 Ml Vial IV PUSH Q4H PRN Nausea Umeclidinium/Vilanterol 1 puff 02/10/25 10:35 02/13/25 13:59 Umeclidinium/Vilanterol 62.5-25 Mcg Ellipta INHALATION Not Given DAILYRT [facility] Radiology Results: ITS Impressions Head CT 02/06/25 12:24 IMPRESSION: 1. No acute intracranial findings. Chest/Abdomen/Pelvis CTA 02/06/25 13:40 IMPRESSION: 1. No pulmonary embolism identified. 2. Moderate-sized bilateral pleural effusions. 3. Moderate-sized consolidations in the lower lobes and right middle lobe. Recommend follow-up to resolution. 4. Small to moderate size ground glass opacity scattered throughout both lungs most prominent in the upper lobes. Recommend follow-up to resolution. 5. Moderate-sized pericardial effusion. 6. Cholelithiasis. 7. Small amount of fluid and fat stranding scattered throughout the abdomen and pelvis for prominent in the right abdomen. 8. Concentric thickening of the cintron of the moderately distended bladder. Differential includes incomplete bladder wall distention, cystitis or sequelae from bladder outlet obstruction. 9. Moderate nonspecific anasarca. 10. Small bilateral fat-containing inguinal hernias, larger on the right which also contains fluid Renal Ultrasound 02/08/25 14:41 IMPRESSION: 1. No hydronephrosis. Venous Doppler Study 02/08/25 17:10 IMPRESSION: 1. Deep venous thrombosis at the bilateral popliteal veins. Findings were discussed with Polo Gee, the nurse caring for the patient, at 5:18 PM. Thoracentesis Ultrasound 02/09/25 14:20 IMPRESSION: 1. Successful ultrasound-guided thoracentesis yielding 1100 mL of straw-colored fluid. Chest X-Ray 02/13/25 10:27 Impression: CHF. Superimposed pneumonia. The findings appear relatively unchanged Labs Labs: Laboratory Tests 02/13/25 05:37 02/13/25 05:37 Calcium 8.3 L Phosphorus 3.7 Albumin 3.0 L Microbiology 02/06/25 13:05 Blood Blood Culture - Final 02/06/25 13:03 Blood Blood Culture - Final
[2025-02-13 13:03] LABS: Partial Thromboplastin Time 78.2 Seconds (22.3-36.8)
--- NOTE | 2025-02-13 13:28 | PM.IMPN ---
Progress Note: A&P Assessment and Plan (1) Sepsis: Qualifiers: Sepsis acute organ dysfunction status: without acute organ dysfunction Sepsis type: sepsis due to unspecified organism Qualified Code(s): A41.9 - Sepsis, unspecified organism Code(s): A41.9 - Sepsis, unspecified organism Status: Acute Assessment and Plan: Met SIRS criteria on admission: HR >90, RR >20. +Hypoxia, -HypoTN. Blood cultures obtained on 02/06, follow. On admission chest x-ray shows CHF with superimposed probable pneumonia On admission CTA chest/abdomen/pelvis negative for PE but patient had moderate size bilateral pleural effusion, moderate size consolidation in the lower lobes and right middle lobe Lactic acid was normal Ceftriaxone switched to cefepime as patient becomes more hypoxic Vanc and Flagyl was added 02/08 IV antibiotics were deescalated was patient becomes Hemodynamically stable Last ceftriaxone dose was 02/12 Blood culture no growth to date (2) Acute on chronic respiratory failure with hypoxia and hypercapnia: Code(s): J96.21 - Acute and chronic respiratory failure with hypoxia; J96.22 - Acute and chronic respiratory failure with hypercapnia Status: Acute Assessment and Plan: Etiology of Respiratory Failure: Possible fluid overload from CHF vs pneumonia Imaging concerning for significant volume overload as evidenced by moderate pleural effusions, moderate nonspecific anasarca, moderate sized pericardial effusion. CTA negative for PE --Consults: pulmonary, cardiology, renal LABS WBC normal since admission 02/06 ABG: PH 7.305/CO2 64, HC03 31.1/O2 saturation 92.7% on 3L 02/08 ABG: Ph 7.297/53.2/25.4/O2 sat 901. on 6L 02/09 ABG: pH 7.246/ 55/23.4/ O2 sat 87.6 on 10L Acute respiratory failure air likely multifactorial including suspected CHF, multifocal pneumonia. Patient is an everyday smoker (1PPD), but no evidence of COPD on imaging. Initially started on Prednisone, now stopped. No wheezing --Pulmonary consulted, appreciate recommendations --nebulizers p.r.n --Off diuretics for GERONIMO --Antibiotics for UTI. --No evidence of pneumonia -- Tried BiPAP for an hour and took it off. Tried AVAPS 02/08 but didn't tolerate --Will need a walking O2 prior to discharge if tolerates (has prosthetics) --May need another thoracentesis DNR/DNI (3) Pneumonia: Qualifiers: Laterality: bilateral Lung location: unspecified part of lung Pneumonia type: due to unspecified organism Qualified Code(s): J18.9 - Pneumonia, unspecified organism Code(s): J18.9 - Pneumonia, unspecified organism Status: Acute Assessment and Plan: 02/09 CT Concerning for pneumonia but WBC has been normal. No fevers Started on Cap tx: Ceftriaxone and azithromycin IV. Changed to Cefepime, Vanc, Flagyl 02/08 since increased oxygen requirements. Stopped Vancomycin 02/09. Stopped cefepime and resumed Ceftriaxone primarily for UTI since no evidence of infection on pleural fluid -Appreciate pulmonary recommendations. --MRSA PCR negative --sputum culture - Viral PCR negative on 02/06 - Supportive care: Mucinex yomaira, Tessalon Perles p.r.n., DuoNebs p.r.n., Tylenol p.r.n. (4) Congestive heart failure: Qualifiers: Heart failure type: unspecified Heart failure chronicity: acute Qualified Code(s): I50.9 - Heart failure, unspecified Code(s): I50.9 - Heart failure, unspecified Status: Suspected Assessment and Plan: Suspected acute CHF. No previous echo available. Decreased LVEF 45-50% and inferior/posterior hypokinesia. Also noted to have a moderate pericardial effusion on CT 02/07 TTE 1. Complete two-dimensional, color flow and Doppler transthoracic echocardiogram is performed. 2. Concentric left ventricular hypertrophy with mild systolic dysfunction, inferior/posterior hypokinesia. 3. Grade 2 diastolic noncompliance. 4. Mild mitral regurgitation. 5. Mildly enlarged ascending aorta, 4.2 cm. 6. Trivial posterior pericardial effusion. see CXR and CT impressions above, concern for volume overload. No peripheral edema to bilateral thighs. BNP 37601 02/06, 46690 on 02/08 PLAN - started on Lasix 40 mg IV b.i.d, on hold for worsening GERONIMO -No QUANG/ARB with GERONIMO - monitor I&Os and daily weights - trend renal function -Cardiology consult for new heart failure, appreciate recommendations. Has a moderate pericardial effusion and limited medication options with GERONIMO Recommending lexiscan myoview outpatient to rule out CAD (5) Pleural effusion: Code(s): J90 - Pleural effusion, not elsewhere classified Status: Acute Assessment and Plan: moderate-sized bilateral pleural effusions noted on CTA, suspected CHF, see above currently requiring supplemental O2, wean as tolerated, maintain O2 sat greater than 92% --s/p Right & Left Thoracentesis. 1100 out on the right 02/08, 1100 on the left 02/09 --Unable to diuresis with GERONIMO. If continued improvement, could restart --Weaned to 2L<4L, follow oxygen requirements (6) GERONIMO (acute kidney injury): Code(s): N17.9 - Acute kidney failure, unspecified Status: Acute Assessment and Plan: Baseline creatinine 0.7-0.9 from 2019 to 2022, no recent lab work available for comparison. Patient reports he has not been to the doctor in a couple of years Worsening despite diuresis & treatment of UTI. Recently received CT contrast. 4+ protein on initial UA Urine studies UA cloudy 3+ protein, trace LE. Protein/creat ratio 3.69, no eosinophils FeNa 1.2% indeterminate, FeUrea 27% suggests pre-renal Creatinine 1.52, BUN 34, GFR 46 upon admission on 02/06. CK 70 Bladder scan was 220 02/08 Total protein 6.8 Albumin 3.3 02/06 CTA showed concentric thickening of the cintron of the moderately distended bladder, differential including incomplete bladder wall distension, cystitis, or sequela from bladder outlet obstruction. UA concerning for UTI. Concern for CHF/volume overload as evidenced by a pleural effusions, moderate size pericardial effusion, and moderate nonspecific anasarca on CT. Started diuresis but now on hold for worsening GERONIMO 02/08 renal US--No Hydronephrosis PLAN -Nephrology consulted, appreciate recommendations. --Diuretics have been held for GERONIMO (7) UTI (urinary tract infection): Qualifiers: Hematuria presence: with hematuria Urinary tract infection type: acute cystitis Qualified Code(s): N30.01 - Acute cystitis with hematuria Code(s): N39.0 - Urinary tract infection, site not specified Status: Acute Assessment and Plan: UA: Cloudy, 4+ protein, trace glucose, trace ketones, 2+ blood, 1+ leuk history is, 11-28 RBC, 51-100 WBC, occasional epithelial cells, no bacteria - UC pending, Growing GNB. Growing serratia marcescens - previous micro reviewed, grew Klebsiella in 2020 that was resistant to ampicillin only - started on Ceftriaxone on 02/06. 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 Will need a meter. Can consider oral meds for discharge (9) Paroxysmal atrial fibrillation: Code(s): I48.0 - Paroxysmal atrial fibrillation Status: Chronic Assessment and Plan: History of paroxysmal AFib, currently stable. - initial EKG showed sinus tachycardia, NSR - telemetry monitoring --will initiate Eliquis for his DVT treatment (10) HTN (hypertension): Qualifiers: Hypertension type: primary hypertension Qualified Code(s): I10 - Essential (primary) hypertension Code(s): I10 - Essential (primary) hypertension Status: Chronic Assessment and Plan: Reports he is not on any home medications, BP goal <140/80 Continue amlodipine with prn hydralazine monitor (11) Popliteal DVT (deep venous thrombosis): Code(s): I82.439 - Acute embolism and thrombosis of unspecified popliteal vein Status: Acute Assessment and Plan: Doppler ultrasound 02/08/2025 shows deep venous thrombosis at the bilateral popliteal Will initiate Eliquis 5 mg twice a day for 3-6 months Plan Diet: Diabetic GI Prophylaxis: N/a DVT Prophylaxis: patient will be started on Eliquis IV fluids: 1L bolus, no further fluids due to concern for CHF Lines/Tubes: Peripheral IV Code Status: DNR/DNI Disposition: Pending placement Time Spent With Patient Time: 35 minutes Subjective Date/time seen: 02/13/25 13:28 Interval history: He is not complaining any discomfort or pain. He was oriented to person, time and place. No fever or chills overnight. Exam Narrative: APPEARANCE: No acute distress, cachectic. EYES: EOMI HEENT: Normocephalic, atraumatic, OMM RESPIRATORY: On supplemental oxygen, no wheezing or crackles. CARDIOVASCULAR: RRR, S1 and S2 without murmurs rubs or gallops. ABDOMINAL: Soft, nontender, nondistended, no rebound or guarding MUSCULOSKELETAl: Bilateral BKA, ambulate by using prostatic leg NEURO: Awake and alert. Following commands, speech normal, no focal deficits SKIN:: Warm, dry. No rashes lesions or abrasions PSYCHIATRIC: Normal affect/mood Objective Data Vital Signs Vital Signs: Vital Signs - 24 hr 02/12/25 15:45 02/12/25 16:00 02/12/25 20:00 Temperature 36.5 C Pulse Rate 96 93 Respiratory Rate 20 Blood Pressure 145/79 H Pulse Oximetry 91 91 Oxygen Delivery Nasal Cannula Oxygen Flow Rate 3 02/12/25 20:00 02/12/25 20:03 02/13/25 00:00 Temperature 36.6 C Pulse Rate 94 94 93 Respiratory Rate 18 Blood Pressure 147/74 H Pulse Oximetry 97 Oxygen Delivery Oxygen Flow Rate 02/13/25 03:46 02/13/25 04:00 02/13/25 13:10 Temperature 36.7 C 36.7 C Pulse Rate 93 94 91 Respiratory Rate 20 18 Blood Pressure 148/81 H 149/84 H Pulse Oximetry 91 97 Oxygen Delivery Oxygen Flow Rate Intake/Output Intake/Output: Intake & Output 02/10/25 02/11/25 02/12/25 02/13/25 23:59 23:59 23:59 23:59 Intake Total 1977 827.2 2396.8 1065.8 Output Total 150 Balance 1977 677.2 2396.8 1065.8 Meds/Results Medications: Active Medications Generic Name Dose Route Start Last Admin Trade Name Freq PRN Reason Stop Dose Admin Acetaminophen 650 mg 02/06/25 15:03 Acetaminophen 325 Mg Tablet PO Q4H PRN Mild Pain (1-3) or Fever Amlodipine Besylate 5 mg 02/12/25 09:00 02/13/25 08:07 Amlodipine Besylate 5 Mg Tablet PO 5 mg DAILY YOMAIRA Administration Benzonatate 100 mg 02/06/25 16:24 Benzonatate 100 Mg Capsule PO TID PRN Cough Dextrose 12.5 gm 02/06/25 15:03 Dextrose 50% 25 Gm/50 Ml Syringe IV PUSH PRN PRN Hypoglycemia Protocol Enoxaparin Sodium 40 mg 02/07/25 09:00 02/08/25 07:56 Enoxaparin 40 Mg/0.4 Ml Syringe SUB-Q Not Given On Hold: 02/08/25 11:15 DAILY YOMAIRA Glucagon 1 mg 02/06/25 15:03 02/11/25 21:37 Glucagon For Inj 1 Mg Vial IM 1 mg PRN PRN Administration Hypoglycemia Protocol Glucose 15 gm 02/06/25 15:03 Glucose Oral Gel 15 Gm Of Glucse In 37.5 Gm Tube PO PRN PRN Hypoglycemia Protocol Guaifenesin 1,200 mg 02/08/25 21:00 02/10/25 11:48 Guaifenesin 12 Hr 600 Mg Tabcr PO Not Given On Hold: 02/10/25 09:50 Q12HR YOMAIRA Heparin Sodium (Porcine) 3,500 units 02/08/25 18:05 02/12/25 10:21 Heparin Sodium 5,000 Units/Ml Vial IV PUSH 3,500 units PRN PRN Administration aPTT 55 - 70 seconds Heparin Sodium (Porcine) 4,000 units 02/08/25 22:06 02/12/25 23:28 Heparin Sodium 5,000 Units/Ml Vial IV PUSH 4,000 units PRN PRN Administration aPTT less than 55 seconds Hydralazine HCl 25 mg 02/07/25 17:12 Hydralazine Hcl 25 Mg Tablet PO Q8H PRN Hypertensive Emergency Dextrose 1,000 mls @ 100 mls/hr 02/06/25 15:03 Dextrose 5% 1,000 Ml IVPB PRN PRN Hypoglycemia Protocol Heparin Sodium/Dextrose 25,000 units in 250 mls @ 15 mls/hr 02/08/25 22:05 02/13/25 13:24 Heparin Sodium/D5w 100 Units/Ml IV CONT 1,500 units/hr .[id number] YOMAIRA 15 mls/hr Protocol Titration 1,500 UNITS/HR Insulin Aspart 2 - 5 units 02/06/25 17:00 02/13/25 12:26 Insulin Aspart (*Bkc) 100 Units/Ml SUB-Q Not Given TIDWM [facility] Protocol Insulin Aspart 3 units 02/11/25 08:00 02/13/25 12:37 Insulin Aspart (*Bkc) 100 Units/Ml SUB-Q 3 units TIDWM YOMAIRA Administration Insulin Glargine 5 units 02/11/25 09:00 02/13/25 08:07 Insulin Glargine (*Bkc) 100 Units/Ml SUB-Q 5 units DAILY YOMAIRA Administration Ondansetron HCl 4 mg 02/06/25 15:03 Ondansetron Inj 4 Mg/2 Ml Vial IV PUSH Q4H PRN Nausea Umeclidinium/Vilanterol 1 puff 02/10/25 10:35 02/12/25 12:30 Umeclidinium/Vilanterol 62.5-25 Mcg Ellipta INHALATION 1 puff DAILYRT YOMAIRA Administration Radiology Results: ITS Impressions Head CT 02/06/25 12:24 IMPRESSION: 1. No acute intracranial findings. Chest/Abdomen/Pelvis CTA 02/06/25 13:40 IMPRESSION: 1. No pulmonary embolism identified. 2. Moderate-sized bilateral pleural effusions. 3. Moderate-sized consolidations in the lower lobes and right middle lobe. Recommend follow-up to resolution. 4. Small to moderate size ground glass opacity scattered throughout both lungs most prominent in the upper lobes. Recommend follow-up to resolution. 5. Moderate-sized pericardial effusion. 6. Cholelithiasis. 7. Small amount of fluid and fat stranding scattered throughout the abdomen and pelvis for prominent in the right abdomen. 8. Concentric thickening of the cintron of the moderately distended bladder. Differential includes incomplete bladder wall distention, cystitis or sequelae from bladder outlet obstruction. 9. Moderate nonspecific anasarca. 10. Small bilateral fat-containing inguinal hernias, larger on the right which also contains fluid Renal Ultrasound 02/08/25 14:41 IMPRESSION: 1. No hydronephrosis. Venous Doppler Study 02/08/25 17:10 IMPRESSION: 1. Deep venous thrombosis at the bilateral popliteal veins. Findings were discussed with Polo Gee, the nurse caring for the patient, at 5:18 PM. Thoracentesis Ultrasound 02/09/25 14:20 IMPRESSION: 1. Successful ultrasound-guided thoracentesis yielding 1100 mL of straw-colored fluid. Chest X-Ray 02/13/25 10:27 Impression: CHF. Superimposed pneumonia. The findings appear relatively unchanged Labs Labs: Laboratory Results - last 24 hr 02/12/25 02/12/25 02/12/25 16:01 17:12 20:06 WBC RBC Hgb Hct MCV MCH MCHC RDW Plt Count MPV Immature Gran % (Auto) Neut % (Auto) Lymph % (Auto) [place] % (Auto) Eos % (Auto) Baso % (Auto) Lymph # (Auto) [place] # (Auto) Eos # (Auto) Baso # (Auto) Abs Immat Gran (auto) Absolute Neuts (auto) Absolute Nucleated RBC Nucleated RBC % % Immature Plt Fraction APTT 87.8 H Sodium Potassium Chloride Carbon Dioxide Anion Gap BUN Creatinine Estim Creat Clear Calc Estimated GFR Glucose POC Capillary Glucose 125 H 175 H Calcium Phosphorus Albumin Nasal MRSA (PCR) 02/12/25 02/12/25 02/13/25 22:57 23:48 05:37 WBC 5.0 RBC 4.07 L Hgb 10.9 L Hct 35.7 L MCV 87.7 MCH 26.8 MCHC 30.5 L RDW 15.0 H Plt Count 105 L MPV 11.9 H Immature Gran % (Auto) 0.8 H Neut % (Auto) 77.0 H Lymph % (Auto) 12.0 L [place] % (Auto) 8.6 H Eos % (Auto) 1.2 Baso % (Auto) 0.4 Lymph # (Auto) 0.60 L [place] # (Auto) 0.4 Eos # (Auto) 0.1 Baso # (Auto) 0.0 Abs Immat Gran (auto) 0.04 H Absolute Neuts (auto) 3.9 Absolute Nucleated RBC 0.000 Nucleated RBC % 0.0 % Immature Plt Fraction 8.7 APTT 50.0 H 191.5 H* Sodium 137 Potassium 4.9 Chloride 103 Carbon Dioxide 32 H Anion Gap 2 L BUN 58 H Creatinine 2.09 H Estim Creat Clear Calc 35 Estimated GFR 32 L Glucose 135 H POC Capillary Glucose Calcium 8.3 L Phosphorus 3.7 Albumin 3.0 L Nasal MRSA (PCR) Not detected 02/13/25 02/13/25 02/13/25 07:58 11:53 12:20 WBC RBC Hgb Hct MCV MCH MCHC RDW Plt Count MPV Immature Gran % (Auto) Neut % (Auto) Lymph % (Auto) [place] % (Auto) Eos % (Auto) Baso % (Auto) Lymph # (Auto) [place] # (Auto) Eos # (Auto) Baso # (Auto) Abs Immat Gran (auto) Absolute Neuts (auto) Absolute Nucleated RBC Nucleated RBC % % Immature Plt Fraction APTT 78.2 H Sodium Potassium Chloride Carbon Dioxide Anion Gap BUN Creatinine Estim Creat Clear Calc Estimated GFR Glucose POC Capillary Glucose 122 H 148 H Calcium Phosphorus Albumin Nasal MRSA (PCR)
[2025-02-13] MEDS: BUMETANIDE INJ 1 MG/4 ML VIAL 1.5 MG IV PUSH (19:28)
[2025-02-13] MEDS: APIXABAN 5 MG TABLET PO (21:13)
[2025-02-14] VITALS (16 sets, daily range): BP systolic 144–173; BP diastolic 64–79; PULSE 87–96; RESP 16–20; TEMP 36.6–36.8; O2SAT 90–97
[2025-02-14 05:28] LABS: Hematocrit 36.9 % (42.0-52.0); Hemoglobin 11.0 g/dL (14.0-18.0); Immature Granulocyte Percent A 0.7 % (0-0.5); Immature Platelet Fraction Pct 8.0 % (0.9-11.2); Lymphocytes Absolute Auto 0.78 K/mm3 (0.9-3.2); Mean Corpuscular HGB Conc 29.8 g/dl (32-36); Mean Corpuscular Hemoglobin 26.6 pg (26-34); Mean Corpuscular Volume 89.3 fl (80-100); Nucleated Red Blood Cells Absolute Auto 0.000 K/mm3 (0.0-0.012); Nucleated Red Blood Cells Perc 0.0 % (0.0-0.2); Platelet Count Result 122 k/mm3 (150-375); Red Blood Count 4.13 M/mm3 (4.6-6.20); White Blood Count 5.7 K/mm3 (4.5-10.0)
[2025-02-14 05:42] LABS: Albumin Level 3.1 g/dL (3.5-5.1); Anion Gap 4 mmol/L (4-12); Blood Urea Nitrogen 51 mg/dL (9-20); Calcium 8.4 mg/dL (8.4-10.2); Carbon Dioxide 33 mmol/L (22-30); Chloride 101 mmol/L (98-107); Estimated CRCL calculation 39 ml/min; Estimated Glomerular Filt Rate 37; Glucose 131 mg/dL (65-110); Potassium 4.8 mmol/L (3.4-5.0); Sodium 138 mmol/L (137-145)
[2025-02-14 06:16] LABS: Hypochromasia 1+; Schistocytes None Seen
[2025-02-14] MEDS: UMECLIDINIUM/VILANTEROL 62.5-25 MCG ELLIPTA 1 PUFF INHALATION (07:11)
--- NOTE | 2025-02-14 09:09 | P.PNNP_ITS ---
Progress Note: A&P Assessment and Plan (1) Acute kidney injury: Code(s): N17.9 - Acute kidney failure, unspecified Status: Acute Assessment and Plan: * slow improvement * as noted since hospitalization (admission creatinine 1.52mg/dl) * significant rise noted on 02/08 (1.61 --> 2.57mg/dL) * only previous labs to compare are from October 2022 - creatinine normal at that time (0.80mg/dL) * unclear if a component of chronic renal insufficiency/CKD at baseline...but risk factors noted: * suboptimal diabetes control complicated by PVD + diabetic retinopathy * hypertension * CHF * smoker * history of polysubstance abuse * hepatitis C * suspect multifactorial etiology: * fluctuating hemodynamics * infection/sepsis (UTI +/- pneumonia) * CHF exacerbation * IV diuretic therapy * contrast exposure (CTA on 02/06) - suspect this is reason for rise in creatinine on 02/08 * hypoxia * other (?) * evaluation to date noted: * renal ultrasound w/o obstruction * urine electrolytes (by FeUrea) prerenal * urine eosinophils negative * nephrotic range proteinuria * CPK normal * initial UA suggest infection * no critical electrolytes but difficult to assess if adequate urine output * follow-up on serologies * s/p bumex 1.5gm IV x 1 on 02/12 and 02/13 * consider starting oral diuretic therapy * follow CXR results * follow trend of repeat labs and UOP (2) Acute hypoxic respiratory failure: Code(s): J96.01 - Acute respiratory failure with hypoxia Status: Acute Assessment and Plan: * clinical improvement noted * complicated by hypercapnia (as noted by ABGs) * does not wear supplemental oxygen at baseline * due to several issues: * bilateral pleural effusions * CHF exacerbation * volume overload * pneumonia (?) * underlying reactive airway disease/COPD (?) -- although no evidence by imaging * pericardial effusion * complicated by extensive smoking history * s/p thoracentesis x 2 (left on 02/09 and right on 02/08) * pleural fluid analysis without evidence of infection/transudative * Pulmonary following with recommendations noted * unable to tolerated AVAPS * continue nebulizer treatments/inhalers * wean O2 as tolerated * continue therapy as outlined (3) Congestive heart failure: Qualifiers: Heart failure chronicity: acute Heart failure type: unspecified Q ualified Code(s): I50.9 - Heart failure, unspecified Code(s): I50.9 - Heart failure, unspecified Status: Suspected Assessment and Plan: * suspected on admission * Echo (on 02/07) noted: * left ventricular systolic function is mildly reduced, estimated at 45 - 50% (inferior/posterior hypokinesia) * left ventricular diastolic function is grade II diastolic dysfunction * mild aortic valve sclerosis. * mild mitral regurgitation * mildly enlarged ascending aorta, 4.2cm * rivial posterior pericardial effusion * elevated BNP noted * imaging noted on admission noted: * CXR: CHF. Superimposed probable pneumonia * CTA C/A/P: no pulmonary embolism identified; moderate-sized bilateral pleural effusions; moderate-sized consolidations in the lower lobes and right middle lobe; small to moderate size ground glass opacity scattered throughout both lungs most prominent in the upper lobes; moderate-sized pericardial effusion. * since renal function better, dosed with IV diuretics (IV bumex on 02/12 and 02/13) (4) Pleural effusion: Code(s): J90 - Pleural effusion, not elsewhere classified Status: Acute Assessment and Plan: * as noted by admission imaging * s/p left (on 02/09) and right (on 02/08) thoracentesis * 1100cc removed on right * 1100cc removed on left * pleural fluid analysis noted (see #2) * re-attempt at diuresis since renal function improved - IV bumex yesterday * alternatively, consider repeat thoracentesis * follow repeat imaging (5) Pneumonia: Qualifiers: Laterality: bilateral Lung location: unspecified part of lung P neumonia type: due to unspecified organism Qualified Code(s): J18.9 - Pneumonia, unspecified organism Code(s): J18.9 - Pneumonia, unspecified organism Status: Acute Assessment and Plan: * admission CXR and CT chest suggestive * however, no fevers and normal WBC; but noted hypoxia * viral testing for influenza/RSV/COVID negative * extended respiratory viral pathogen panel negative as well * follow culture data * furthermore, pleural fluid analysis argues against infection * on antibiotics (6) UTI (urinary tract infection): Qualifiers: Hematuria presence: with hematuria Urinary tract infection type: acute cystitis Qualified Code(s): N30.01 - Acute cystitis with hematuria Code(s): N39.0 - Urinary tract infection, site not specified Status: Acute Assessment and Plan: * admission UA suggestive * urine culture with Serratia marcescens * on antibiotics (7) Paroxysmal atrial fibrillation: Code(s): I48.0 - Paroxysmal atrial fibrillation Status: Chronic Assessment and Plan: * known history * rate controlled * on anticoagulation (8) Anemia: Code(s): D64.9 - Anemia, unspecified Status: Acute Assessment and Plan: * presumably secondary to GERONIMO and acute illness * no need for YOHANA at this time * follow trend of H/H (9) HTN (hypertension): Qualifiers: Hypertension type: primary hypertension Qualified Code(s): I10 - Essential (primary) hypertension Code(s): I10 - Essential (primary) hypertension Status: Chronic Assessment and Plan: * elevated on admission * no outpatient medications * started on medications during this hospitalization * follow trend of hemodynamics (10) Diabetes: Qualifiers: Diabetes mellitus complication status: without complication Diabetes mellitus intermediate insulin use: with intermediate use Diabetes mellitus type: type 2 Qualified Code(s): E11.9 - Type 2 diabetes mellitus without complications; Z79.4 - shelter (current) use of insulin Code(s): E11.9 - Type 2 diabetes mellitus without complications Status: Chronic Assessment and Plan: * suboptimal control at baseline * was not taking any outpatient medications * follow accu-cheks * glycemic control per hospitalist Will continue to follow. L Time Spent With Patient Time: 56 minutes Subjective Date/time seen: 02/14/25 09:09 Interval history: Follow-up for acute kidney injury/acute renal failure (on chronic kidney disease?). Renal function/creatinine continues to improve despite IV bumex dosing in the last few days (given bumex IV 1.5mg IVP on 02/12 and 02/13); breathing/respiratory status seems relatively stable as well; no other issues/events overnight or earlier this morning. Exam 2 Narrative: General: elderly male in NAD Heart: normal S1 and S2; no rub Lungs: coarse with decreased breath sounds at bases Abdomen: soft, nontender, nondistended, positive bowel sounds Extremities: no cyanosis or clubbing; no edema; s/p bilateral BKAs Skin: no nodules Objective Data Vital Signs Vital Signs: Vital Signs Temp Pulse Resp BP Pulse Ox O2 Del Method O2 Flow Rate 02/14/25 09:05 92 High Flow Nasal Cannula 3 02/14/25 08:00 94 02/14/25 07:14 92 High Flow Nasal Cannula 3 02/14/25 07:11 88 16 02/14/25 05:01 97.9 F 92 16 173/79 H 95 02/14/25 04:00 87 02/14/25 00:00 93 02/13/25 22:05 93 94 Nasal Cannula 3 02/13/25 22:05 93 94 Nasal Cannula 02/13/25 21:03 97.9 F 93 18 148/72 H 95 02/13/25 20:00 94 02/13/25 20:00 99 Nasal Cannula 3 02/13/25 16:00 93 02/13/25 14:41 Nasal Cannula 3 02/13/25 13:53 Nasal Cannula 3 02/13/25 13:10 98.1 F 91 18 149/84 H 97 Intake/Output Intake/Output: Intake & Output 02/11/25 02/12/25 02/13/25 02/14/25 23:59 23:59 23:59 23:59 Intake Total 827.2 2396.8 1305.8 562 Output Total 150 Balance 677.2 2396.8 1305.8 562 Meds/Results Medications: Active Medications Generic Name Dose Route Start Last Admin Trade Name Freq PRN Reason Stop Dose Admin Acetaminophen 650 mg 02/06/25 15:03 Acetaminophen 325 Mg Tablet PO Q4H PRN Mild Pain (1-3) or Fever Amlodipine Besylate 5 mg 02/12/25 09:00 02/14/25 09:27 Amlodipine Besylate 5 Mg Tablet PO 5 mg DAILY OMI Administration Apixaban 5 mg 02/13/25 21:00 02/14/25 09:27 Apixaban 5 Mg Tablet PO 5 mg Q12HR OMI Administration Benzonatate 100 mg 02/06/25 16:24 Benzonatate 100 Mg Capsule PO TID PRN Cough Dextrose 12.5 gm 02/06/25 15:03 Dextrose 50% 25 Gm/50 Ml Syringe IV PUSH PRN PRN Hypoglycemia Protocol Glucagon 1 mg 02/06/25 15:03 02/11/25 21:37 Glucagon For Inj 1 Mg Vial IM 1 mg PRN PRN Administration Hypoglycemia Protocol Glucose 15 gm 02/06/25 15:03 Glucose Oral Gel 15 Gm Of Glucse In 37.5 Gm Tube PO PRN PRN Hypoglycemia Protocol Guaifenesin 1,200 mg 02/08/25 21:00 02/10/25 11:48 Guaifenesin 12 Hr 600 Mg Tabcr PO Not Given On Hold: 02/10/25 09:50 Q12HR OMI Heparin Sodium (Porcine) 4,000 units 02/08/25 22:06 02/12/25 23:28 Heparin Sodium 5,000 Units/Ml Vial IV PUSH 4,000 units PRN PRN Administration aPTT less than 55 seconds Hydralazine HCl 25 mg 02/07/25 17:12 Hydralazine Hcl 25 Mg Tablet PO Q8H PRN Hypertensive Emergency Dextrose 1,000 mls @ 100 mls/hr 02/06/25 15:03 Dextrose 5% 1,000 Ml IVPB PRN PRN Hypoglycemia Protocol Insulin Aspart 2 - 5 units 02/06/25 17:00 02/14/25 09:27 Insulin Aspart (*Bkc) 100 Units/Ml SUB-Q Not Given TIDWM OMI Protocol Insulin Aspart 3 units 02/11/25 08:00 02/14/25 09:27 Insulin Aspart (*Bkc) 100 Units/Ml SUB-Q 3 units TIDWM OMI Administration Insulin Glargine 5 units 02/11/25 09:00 02/14/25 09:27 Insulin Glargine (*Bkc) 100 Units/Ml SUB-Q 5 units DAILY OMI Administration Ondansetron HCl 4 mg 02/06/25 15:03 Ondansetron Inj 4 Mg/2 Ml Vial IV PUSH Q4H PRN Nausea Umeclidinium/Vilanterol 1 puff 02/10/25 10:35 02/14/25 07:11 Umeclidinium/Vilanterol 62.5-25 Mcg Ellipta INHALATION 1 puff DAILYRT OMI Administration Radiology Results: ITS Impressions Head CT 02/06/25 12:24 IMPRESSION: 1. No acute intracranial findings. Chest/Abdomen/Pelvis CTA 02/06/25 13:40 IMPRESSION: 1. No pulmonary embolism identified. 2. Moderate-sized bilateral pleural effusions. 3. Moderate-sized consolidations in the lower lobes and right middle lobe. Recommend follow-up to resolution. 4. Small to moderate size ground glass opacity scattered throughout both lungs most prominent in the upper lobes. Recommend follow-up to resolution. 5. Moderate-sized pericardial effusion. 6. Cholelithiasis. 7. Small amount of fluid and fat stranding scattered throughout the abdomen and pelvis for prominent in the right abdomen. 8. Concentric thickening of the cintron of the moderately distended bladder. Differential includes incomplete bladder wall distention, cystitis or sequelae from bladder outlet obstruction. 9. Moderate nonspecific anasarca. 10. Small bilateral fat-containing inguinal hernias, larger on the right which also contains fluid Renal Ultrasound 02/08/25 14:41 IMPRESSION: 1. No hydronephrosis. Venous Doppler Study 02/08/25 17:10 IMPRESSION: 1. Deep venous thrombosis at the bilateral popliteal veins. Findings were discussed with Polo Gee, the nurse caring for the patient, at 5:18 PM. Thoracentesis Ultrasound 02/09/25 14:20 IMPRESSION: 1. Successful ultrasound-guided thoracentesis yielding 1100 mL of straw-colored fluid. Chest X-Ray 02/13/25 10:27 Impression: CHF. Superimposed pneumonia. The findings appear relatively unchanged Labs Labs: Laboratory Tests 02/14/25 04:55 02/14/25 04:55 Calcium 8.4 Phosphorus 3.5 Albumin 3.1 L
--- NOTE | 2025-02-14 09:09 | PM.PNNEP ---
Progress Note: A&P Assessment and Plan (1) Acute kidney injury: Code(s): N17.9 - Acute kidney failure, unspecified Status: Acute Assessment and Plan: slow improvement as noted since hospitalization (admission creatinine 1.52mg/dl) significant rise noted on 02/08 (1.61 --> 2.57mg/dL) only previous labs to compare are from October 2022 - creatinine normal at that time (0.80mg/dL) unclear if a component of chronic renal insufficiency/CKD at baseline...but risk factors noted: suboptimal diabetes control complicated by PVD + diabetic retinopathy hypertension CHF smoker history of polysubstance abuse hepatitis C suspect multifactorial etiology: fluctuating hemodynamics infection/sepsis (UTI +/- pneumonia) CHF exacerbation IV diuretic therapy contrast exposure (CTA on 02/06) - suspect this is reason for rise in creatinine on 02/08 hypoxia other (?) evaluation to date noted: renal ultrasound w/o obstruction urine electrolytes (by FeUrea) prerenal urine eosinophils negative nephrotic range proteinuria CPK normal initial UA suggest infection no critical electrolytes but difficult to assess if adequate urine output follow-up on serologies s/p bumex 1.5gm IV x 1 on 02/12 and 02/13 consider starting oral diuretic therapy follow CXR results follow trend of repeat labs and UOP (2) Acute hypoxic respiratory failure: Code(s): J96.01 - Acute respiratory failure with hypoxia Status: Acute Assessment and Plan: clinical improvement noted complicated by hypercapnia (as noted by ABGs) does not wear supplemental oxygen at baseline due to several issues: bilateral pleural effusions CHF exacerbation volume overload pneumonia (?) underlying reactive airway disease/COPD (?) -- although no evidence by imaging pericardial effusion complicated by extensive smoking history s/p thoracentesis x 2 (left on 02/09 and right on 02/08) pleural fluid analysis without evidence of infection/transudative Pulmonary following with recommendations noted unable to tolerated AVAPS continue nebulizer treatments/inhalers wean O2 as tolerated continue therapy as outlined (3) Congestive heart failure: Qualifiers: Heart failure chronicity: acute Heart failure type: unspecified Qualified Code(s): I50.9 - Heart failure, unspecified Code(s): I50.9 - Heart failure, unspecified Status: Suspected Assessment and Plan: suspected on admission Echo (on 02/07) noted: left ventricular systolic function is mildly reduced, estimated at 45 - 50% (inferior/posterior hypokinesia) left ventricular diastolic function is grade II diastolic dysfunction mild aortic valve sclerosis. mild mitral regurgitation mildly enlarged ascending aorta, 4.2cm rivial posterior pericardial effusion elevated BNP noted imaging noted on admission noted: CXR: CHF. Superimposed probable pneumonia CTA C/A/P: no pulmonary embolism identified; moderate-sized bilateral pleural effusions; moderate-sized consolidations in the lower lobes and right middle lobe; small to moderate size ground glass opacity scattered throughout both lungs most prominent in the upper lobes; moderate-sized pericardial effusion. since renal function better, dosed with IV diuretics (IV bumex on 02/12 and 02/13) (4) Pleural effusion: Code(s): J90 - Pleural effusion, not elsewhere classified Status: Acute Assessment and Plan: as noted by admission imaging s/p left (on 02/09) and right (on 02/08) thoracentesis 1100cc removed on right 1100cc removed on left pleural fluid analysis noted (see #2) re-attempt at diuresis since renal function improved - IV bumex yesterday alternatively, consider repeat thoracentesis follow repeat imaging (5) Pneumonia: Qualifiers: Laterality: bilateral Lung location: unspecified part of lung Pneumonia type: due to unspecified organism Qualified Code(s): J18.9 - Pneumonia, unspecified organism Code(s): J18.9 - Pneumonia, unspecified organism Status: Acute Assessment and Plan: admission CXR and CT chest suggestive however, no fevers and normal WBC; but noted hypoxia viral testing for influenza/RSV/COVID negative extended respiratory viral pathogen panel negative as well follow culture data furthermore, pleural fluid analysis argues against infection on antibiotics (6) UTI (urinary tract infection): Qualifiers: Hematuria presence: with hematuria Urinary tract infection type: acute cystitis Qualified Code(s): N30.01 - Acute cystitis with hematuria Code(s): N39.0 - Urinary tract infection, site not specified Status: Acute Assessment and Plan: admission UA suggestive urine culture with Serratia marcescens on antibiotics (7) Paroxysmal atrial fibrillation: Code(s): I48.0 - Paroxysmal atrial fibrillation Status: Chronic Assessment and Plan: known history rate controlled on anticoagulation (8) Anemia: Code(s): D64.9 - Anemia, unspecified Status: Acute Assessment and Plan: presumably secondary to GERONIMO and acute illness no need for YOHANA at this time follow trend of H/H (9) HTN (hypertension): Qualifiers: Hypertension type: primary hypertension Qualified Code(s): I10 - Essential (primary) hypertension Code(s): I10 - Essential (primary) hypertension Status: Chronic Assessment and Plan: elevated on admission no outpatient medications started on medications during this hospitalization follow trend of hemodynamics (10) Diabetes: Qualifiers: Diabetes mellitus complication status: without complication Diabetes mellitus penitentiary insulin use: with penitentiary use Diabetes mellitus type: type 2 Qualified Code(s): E11.9 - Type 2 diabetes mellitus without complications; Z79.4 - assistant terminal manager (current) use of insulin Code(s): E11.9 - Type 2 diabetes mellitus without complications Status: Chronic Assessment and Plan: suboptimal control at baseline was not taking any outpatient medications follow accu-cheks glycemic control per hospitalist Will continue to follow. Time Spent With Patient Time: 56 minutes Subjective Date/time seen: 02/14/25 09:09 Interval history: Follow-up for acute kidney injury/acute renal failure (on chronic kidney disease?). Renal function/creatinine continues to improve despite IV bumex dosing in the last few days (given bumex IV 1.5mg IVP on 02/12 and 02/13); breathing/respiratory status seems relatively stable as well; no other issues/events overnight or earlier this morning. Exam Narrative: General: elderly male in NAD Heart: normal S1 and S2; no rub Lungs: coarse with decreased breath sounds at bases Abdomen: soft, nontender, nondistended, positive bowel sounds Extremities: no cyanosis or clubbing; no edema; s/p bilateral BKAs Skin: no nodules Objective Data Vital Signs Vital Signs: Vital Signs Temp Pulse Resp BP Pulse Ox O2 Del Method O2 Flow Rate 02/14/25 09:05 92 High Flow Nasal Cannula 3 02/14/25 08:00 94 02/14/25 07:14 92 High Flow Nasal Cannula 3 02/14/25 07:11 88 16 02/14/25 05:01 97.9 F 92 16 173/79 H 95 02/14/25 04:00 87 02/14/25 00:00 93 02/13/25 22:05 93 94 Nasal Cannula 3 02/13/25 22:05 93 94 Nasal Cannula 02/13/25 21:03 97.9 F 93 18 148/72 H 95 02/13/25 20:00 94 02/13/25 20:00 99 Nasal Cannula 3 02/13/25 16:00 93 02/13/25 14:41 Nasal Cannula 3 02/13/25 13:53 Nasal Cannula 3 02/13/25 13:10 98.1 F 91 18 149/84 H 97 Intake/Output Intake/Output: Intake & Output 02/11/25 02/12/25 02/13/25 02/14/25 23:59 23:59 23:59 23:59 Intake Total 827.2 2396.8 1305.8 562 Output Total 150 Balance 677.2 2396.8 1305.8 562 Meds/Results Medications: Active Medications Generic Name Dose Route Start Last Admin Trade Name Freq PRN Reason Stop Dose Admin Acetaminophen 650 mg 02/06/25 15:03 Acetaminophen 325 Mg Tablet PO Q4H PRN Mild Pain (1-3) or Fever Amlodipine Besylate 5 mg 02/12/25 09:00 02/14/25 09:27 Amlodipine Besylate 5 Mg Tablet PO 5 mg DAILY OMI Administration Apixaban 5 mg 02/13/25 21:00 02/14/25 09:27 Apixaban 5 Mg Tablet PO 5 mg Q12HR OMI Administration Benzonatate 100 mg 02/06/25 16:24 Benzonatate 100 Mg Capsule PO TID PRN Cough Dextrose 12.5 gm 02/06/25 15:03 Dextrose 50% 25 Gm/50 Ml Syringe IV PUSH PRN PRN Hypoglycemia Protocol Glucagon 1 mg 02/06/25 15:03 02/11/25 21:37 Glucagon For Inj 1 Mg Vial IM 1 mg PRN PRN Administration Hypoglycemia Protocol Glucose 15 gm 02/06/25 15:03 Glucose Oral Gel 15 Gm Of Glucse In 37.5 Gm Tube PO PRN PRN Hypoglycemia Protocol Guaifenesin 1,200 mg 02/08/25 21:00 02/10/25 11:48 Guaifenesin 12 Hr 600 Mg Tabcr PO Not Given On Hold: 02/10/25 09:50 Q12HR OMI Heparin Sodium (Porcine) 4,000 units 02/08/25 22:06 02/12/25 23:28 Heparin Sodium 5,000 Units/Ml Vial IV PUSH 4,000 units PRN PRN Administration aPTT less than 55 seconds Hydralazine HCl 25 mg 02/07/25 17:12 Hydralazine Hcl 25 Mg Tablet PO Q8H PRN Hypertensive Emergency Dextrose 1,000 mls @ 100 mls/hr 02/06/25 15:03 Dextrose 5% 1,000 Ml IVPB PRN PRN Hypoglycemia Protocol Insulin Aspart 2 - 5 units 02/06/25 17:00 02/14/25 09:27 Insulin Aspart (*Bkc) 100 Units/Ml SUB-Q Not Given TIDWM OMI Protocol Insulin Aspart 3 units 02/11/25 08:00 02/14/25 09:27 Insulin Aspart (*Bkc) 100 Units/Ml SUB-Q 3 units TIDWM OMI Administration Insulin Glargine 5 units 02/11/25 09:00 02/14/25 09:27 Insulin Glargine (*Bkc) 100 Units/Ml SUB-Q 5 units DAILY OMI Administration Ondansetron HCl 4 mg 02/06/25 15:03 Ondansetron Inj 4 Mg/2 Ml Vial IV PUSH Q4H PRN Nausea Umeclidinium/Vilanterol 1 puff 02/10/25 10:35 02/14/25 07:11 Umeclidinium/Vilanterol 62.5-25 Mcg Ellipta INHALATION 1 puff DAILYRT OMI Administration Radiology Results: ITS Impressions Head CT 02/06/25 12:24 IMPRESSION: 1. No acute intracranial findings. Chest/Abdomen/Pelvis CTA 02/06/25 13:40 IMPRESSION: 1. No pulmonary embolism identified. 2. Moderate-sized bilateral pleural effusions. 3. Moderate-sized consolidations in the lower lobes and right middle lobe. Recommend follow-up to resolution. 4. Small to moderate size ground glass opacity scattered throughout both lungs most prominent in the upper lobes. Recommend follow-up to resolution. 5. Moderate-sized pericardial effusion. 6. Cholelithiasis. 7. Small amount of fluid and fat stranding scattered throughout the abdomen and pelvis for prominent in the right abdomen. 8. Concentric thickening of the cintron of the moderately distended bladder. Differential includes incomplete bladder wall distention, cystitis or sequelae from bladder outlet obstruction. 9. Moderate nonspecific anasarca. 10. Small bilateral fat-containing inguinal hernias, larger on the right which also contains fluid Renal Ultrasound 02/08/25 14:41 IMPRESSION: 1. No hydronephrosis. Venous Doppler Study 02/08/25 17:10 IMPRESSION: 1. Deep venous thrombosis at the bilateral popliteal veins. Findings were discussed with Polo Gee, the nurse caring for the patient, at 5:18 PM. Thoracentesis Ultrasound 02/09/25 14:20 IMPRESSION: 1. Successful ultrasound-guided thoracentesis yielding 1100 mL of straw-colored fluid. Chest X-Ray 02/13/25 10:27 Impression: CHF. Superimposed pneumonia. The findings appear relatively unchanged Labs Labs: Laboratory Tests 02/14/25 04:55 02/14/25 04:55 Calcium 8.4 Phosphorus 3.5 Albumin 3.1 L
[2025-02-14] MEDS: INSULIN GLARGINE (*BKC) 100 UNITS/ML SUB-Q (09:27)
[2025-02-14] MEDS: APIXABAN 5 MG TABLET PO ×2 (09:27→20:13)
[2025-02-14] MEDS: INSULIN ASPART (*BKC) 100 UNITS/ML SUB-Q ×3 (09:27→17:25)
--- NOTE | 2025-02-14 11:16 | PCPTNOTE ---
Patient refused treatment this session. Patient states Nobody knows how to work anything. Educated on the importance of participating in PT to improve strength, endurance and mobility. Patient continued to refuse, closed his eyes and said no.
--- NOTE | 2025-02-14 12:08 | P.PNIM_ITS ---
Progress Note: A&P Assessment and Plan (1) Sepsis: Qualifiers: Sepsis acute organ dysfunction status: without acute organ dysfunction Sepsis type: sepsis due to unspecified organism Qualified Code(s): A41.9 - S epsis, unspecified organism Code(s): A41.9 - Sepsis, unspecified organism Status: Acute Assessment and Plan: Met SIRS criteria on admission: HR >90, RR >20. +Hypoxia, -HypoTN. Blood cultures obtained on 02/06, follow. On admission chest x-ray shows CHF with superimposed probable pneumonia On admission CTA chest/abdomen/pelvis negative for PE but patient had moderate size bilateral pleural effusion, moderate size consolidation in the lower lobes and right middle lobe Lactic acid was normal Ceftriaxone switched to cefepime as patient becomes more hypoxic Vanc and Flagyl was added 02/08 IV antibiotics were deescalated was patient becomes Hemodynamically stable Last ceftriaxone dose was 02/12 Blood culture no growth to date (2) Acute on chronic respiratory failure with hypoxia and hypercapnia: Code(s): J96.21 - Acute and chronic respiratory failure with hypoxia; J96.22 - Acute and chronic respiratory failure with hypercapnia Status: Acute Assessment and Plan: Etiology of Respiratory Failure: Possible fluid overload from CHF vs pneumonia Imaging concerning for significant volume overload as evidenced by moderate pleural effusions, moderate nonspecific anasarca, moderate sized pericardial effusion. CTA negative for PE --Consults: pulmonary, cardiology, renal LABS WBC normal since admission 02/06 ABG: PH 7.305/CO2 64, HC03 31.1/O2 saturation 92.7% on 3L 02/08 ABG: Ph 7.297/53.2/25.4/O2 sat 901. on 6L 02/09 ABG: pH 7.246/ 55/23.4/ O2 sat 87.6 on 10L Acute respiratory failure air likely multifactorial including suspected CHF, multifocal pneumonia. Patient is an everyday smoker (1PPD), but no evidence of COPD on imaging. Initially started on Prednisone, now stopped. No wheezing --Pulmonary consulted, appreciate recommendations --nebulizers p.r.n --Off diuretics for GERONIMO --Antibiotics for UTI. --No evidence of pneumonia -- Tried BiPAP for an hour and took it off. Tried AVAPS 02/08 but didn't tolerate --Will need a walking O2 prior to discharge if tolerates (has prosthetics) --May need another thoracentesis DNR/DNI (3) Pneumonia: Qualifiers: Laterality: bilateral Lung location: unspecified part of lung Pneumonia type: due to unspecified organism Qualified Code(s): J18.9 - Pneumonia, unspecified organism Code(s): J18.9 - Pneumonia, unspecified organism Status: Acute Assessment and Plan: 02/09 CT Concerning for pneumonia but WBC has been normal. No fevers Started on Cap tx: Ceftriaxone and azithromycin IV. Changed to Cefepime, Vanc, Flagyl 02/08 since increased oxygen requirements. Stopped Vancomycin 02/09. Stopped cefepime and resumed Ceftriaxone primarily for UTI since no evidence of infection on pleural fluid -Appreciate pulmonary recommendations. --MRSA PCR negative --sputum culture - Viral PCR negative on 02/06 - Supportive care: Mucinex yomaira, Tessalon Perles p.r.n., DuoNebs p.r.n., Tylenol p.r.n. (4) Congestive heart failure: Qualifiers: Heart failure type: unspecified Heart failure chronicity: acute Qualified Code(s): I50.9 - Heart failure, unspecified Code(s): I50.9 - Heart failure, unspecified Status: Suspected Assessment and Plan: Suspected acute CHF. No previous echo available. Decreased LVEF 45-50% and inferior/posterior hypokinesia. Also noted to have a moderate pericardial effusion on CT 02/07 TTE 1. Complete two-dimensional, color flow and Doppler transthoracic echocardiogram is performed. 2. Concentric left ventricular hypertrophy with mild systolic dysfunction, inferior/posterior hypokinesia. 3. Grade 2 diastolic noncompliance. 4. Mild mitral regurgitation. 5. Mildly enlarged ascending aorta, 4.2 cm. 6. Trivial posterior pericardial effusion. see CXR and CT impressions above, concern for volume overload. No peripheral edema to bilateral thighs. BNP 11932 02/06, 24141 on 02/08 PLAN - started on Lasix 40 mg IV b.i.d, on hold for worsening GERONIMO -No QUANG/ARB with GERONIMO - monitor I&Os and daily weights - trend renal function -Cardiology consult for new heart failure, appreciate recommendations. Has a moderate pericardial effusion and limited medication options with GERONIMO Recommending lexiscan myoview outpatient to rule out CAD (5) Pleural effusion: Code(s): J90 - Pleural effusion, not elsewhere classified Status: Acute Assessment and Plan: moderate-sized bilateral pleural effusions noted on CTA, suspected CHF, see above currently requiring supplemental O2, wean as tolerated, maintain O2 sat greater than 92% --s/p Right & Left Thoracentesis. 1100 out on the right 02/08, 1100 on the left 02/09 --Unable to diuresis with GERONIMO. If continued improvement, could restart --Weaned to 2L<4L, follow oxygen requirements --Home oxygen eval (6) GERONIMO (acute kidney injury): Code(s): N17.9 - Acute kidney failure, unspecified Status: Acute Assessment and Plan: Baseline creatinine 0.7-0.9 from 2019 to 2022, no recent lab work available for comparison. Patient reports he has not been to the doctor in a couple of years Worsening despite diuresis & treatment of UTI. Recently received CT contrast. 4+ protein on initial UA Urine studies UA cloudy 3+ protein, trace LE. Protein/creat ratio 3.69, no eosinophils FeNa 1.2% indeterminate, FeUrea 27% suggests pre-renal Creatinine 1.52, BUN 34, GFR 46 upon admission on 02/06. CK 70 Bladder scan was 220 02/08 Total protein 6.8 Albumin 3.3 02/06 CTA showed concentric thickening of the cintron of the moderately distended bladder, differential including incomplete bladder wall distension, cystitis, or sequela from bladder outlet obstruction. UA concerning for UTI. Concern for CHF/volume overload as evidenced by a pleural effusions, moderate size pericardial effusion, and moderate nonspecific anasarca on CT. Started diuresis but now on hold for worsening GERONIMO 02/08 renal US--No Hydronephrosis PLAN -Nephrology consulted, appreciate recommendations. --awaiting diuretics recs from Nephrology (7) UTI (urinary tract infection): Qualifiers: Hematuria presence: with hematuria Urinary tract infection type: acute cystitis Qualified Code(s): N30.01 - Acute cystitis with hematuria Code(s): N39.0 - Urinary tract infection, site not specified Status: Acute Assessment and Plan: UA: Cloudy, 4+ protein, trace glucose, trace ketones, 2+ blood, 1+ leuk history is, 11-28 RBC, 51-100 WBC, occasional epithelial cells, no bacteria - UC pending, Growing GNB. Growing serratia marcescens - previous micro reviewed, grew Klebsiella in 2020 that was resistant to ampicillin only - started on Ceftriaxone on 02/06. 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 Will need a meter. Can consider oral meds for discharge (9) Paroxysmal atrial fibrillation: Code(s): I48.0 - Paroxysmal atrial fibrillation Status: Chronic Assessment and Plan: History of paroxysmal AFib, currently stable. - initial EKG showed sinus tachycardia, NSR - telemetry monitoring --will initiate Eliquis for his DVT treatment (10) HTN (hypertension): Qualifiers: Hypertension type: primary hypertension Qualified Code(s): I10 - Essential (primary) hypertension Code(s): I10 - Essential (primary) hypertension Status: Chronic Assessment and Plan: Reports he is not on any home medications, BP goal <140/80 Continue amlodipine with prn hydralazine monitor (11) Popliteal DVT (deep venous thrombosis): Code(s): I82.439 - Acute embolism and thrombosis of unspecified popliteal vein Status: Acute Assessment and Plan: Doppler ultrasound 02/08/2025 shows deep venous thrombosis at the bilateral popliteal Will initiate Eliquis 5 mg twice a day for 3-6 months Plan Diet: Diabetic GI Prophylaxis: N/a DVT Prophylaxis: patient will be started on Eliquis IV fluids: 1L bolus, no further fluids due to concern for CHF Lines/Tubes: Peripheral IV Code Status: DNR/DNI Disposition: Pending placement Subjective Date/time seen: 02/14/25 12:08 Interval history: Patient comfortable at bedside Nephrology on board jose howard Review of Systems Review of Systems: All systems reviewed & are unremarkable except as noted in HPI and below Exam Narrative: APPEARANCE: No acute distress, cachectic. EYES: EOMI HEENT: Normocephalic, atraumatic, OMM RESPIRATORY: On supplemental oxygen, no wheezing or crackles. CARDIOVASCULAR: RRR, S1 and S2 without murmurs rubs or gallops. ABDOMINAL: Soft, nontender, nondistended, no rebound or guarding MUSCULOSKELETAl: Bilateral BKA, ambulate by using prostatic leg NEURO: Awake and alert. Following commands, speech normal, no focal deficits SKIN:: Warm, dry. No rashes lesions or abrasions PSYCHIATRIC: Normal affect/mood Const: General: comfortable and no acute distress Other: , male, older than stated age, acute on chronic ill appearance. Disheveled. HENMT: Face/Nose/Sinus: Normal nares present Mouth: Yes dry mucous membranes Eyes: General: appearance normal, both eyes and all related structures Sclera: sclerae normal Pupils: Equal, round and reactive pupils present EOM: EOMs intact bilaterally Resp: Effort & Inspection: normal respiratory effort Other: absent on the right starting mid lung to base, decreased from mid lung to base on the left. Faint crackles noted to the left lung base. No wheezing. Nasal cannula place. Cardio: Rate: regular rate Rhythm: regular rhythm Other: S1-S2 present without murmur, rub, ectopy GI: Other: Abdomen soft, nondistended, nontender. Normoactive bowel sounds in all quadrants. Skin: General skin exam: normal color and no rashes or lesions noted Wounds: no wounds Neuro: Cranial nerves: Yes Equal, round and reactive pupils present Speech: normal speech Motor exam (neuro): 5/5 motor strength present throughout Sensory Exam: normal sensation Other: Generalized weakness, A&O x3 Extrem: Other: bilateral BKA. no edema noted to bilateral thighs. Psych: Mental Status: mental status grossly normal Affect: Sad affect present Other: Fair to poor insight and judgment. Objective Data Vital Signs Vital Signs: Vital Signs - 24 hr 02/13/25 13:10 02/13/25 13:53 02/13/25 14:41 Temperature 98.1 F Pulse Rate 91 Respiratory Rate 18 Blood Pressure 149/84 H Pulse Oximetry 97 Oxygen Delivery Nasal Cannula Nasal Cannula Oxygen Flow Rate 3 3 02/13/25 16:00 02/13/25 20:00 02/13/25 20:00 Temperature Pulse Rate 93 94 Respiratory Rate Blood Pressure Pulse Oximetry 99 Oxygen Delivery Nasal Cannula Oxygen Flow Rate 3 02/13/25 21:03 02/13/25 22:05 02/13/25 22:05 Temperature 97.9 F Pulse Rate 93 93 93 Respiratory Rate 18 Blood Pressure 148/72 H Pulse Oximetry 95 94 94 Oxygen Delivery Nasal Cannula Nasal Cannula Oxygen Flow Rate 3 02/14/25 00:00 02/14/25 04:00 02/14/25 05:01 Temperature 97.9 F Pulse Rate 93 87 92 Respiratory Rate 16 Blood Pressure 173/79 H Pulse Oximetry 95 Oxygen Delivery Oxygen Flow Rate 02/14/25 07:11 02/14/25 07:14 02/14/25 08:00 Temperature Pulse Rate 88 94 Respiratory Rate 16 Blood Pressure Pulse Oximetry 92 Oxygen Delivery High Flow Nasal Cannula Oxygen Flow Rate 3 02/14/25 09:25 Temperature Pulse Rate Respiratory Rate Blood Pressure Pulse Oximetry 92 Oxygen Delivery High Flow Nasal Cannula Oxygen Flow Rate 3 Intake/Output Intake/Output: Intake & Output 02/11/25 02/12/25 02/13/25 02/14/25 23:59 23:59 23:59 23:59 Intake Total 827.2 2396.8 1305.8 562 Output Total 150 Balance 677.2 2396.8 1305.8 562 Meds/Results Medications: Active Medications Generic Name Dose Route Start Last Admin Trade Name Freq PRN Reason Stop Dose Admin Acetaminophen 650 mg 02/06/25 15:03 Acetaminophen 325 Mg Tablet PO Q4H PRN Mild Pain (1-3) or Fever Amlodipine Besylate 5 mg 02/12/25 09:00 02/14/25 09:27 Amlodipine Besylate 5 Mg Tablet PO 5 mg DAILY YOMAIRA Administration Apixaban 5 mg 02/13/25 21:00 02/14/25 09:27 Apixaban 5 Mg Tablet PO 5 mg Q12HR YOMAIRA Administration Benzonatate 100 mg 02/06/25 16:24 Benzonatate 100 Mg Capsule PO TID PRN Cough Dextrose 12.5 gm 02/06/25 15:03 Dextrose 50% 25 Gm/50 Ml Syringe IV PUSH PRN PRN Hypoglycemia Protocol Glucagon 1 mg 02/06/25 15:03 02/11/25 21:37 Glucagon For Inj 1 Mg Vial IM 1 mg PRN PRN Administration Hypoglycemia Protocol Glucose 15 gm 02/06/25 15:03 Glucose Oral Gel 15 Gm Of Glucse In 37.5 Gm Tube PO PRN PRN Hypoglycemia Protocol Guaifenesin 1,200 mg 02/08/25 21:00 02/10/25 11:48 Guaifenesin 12 Hr 600 Mg Tabcr PO Not Given On Hold: 02/10/25 09:50 Q12HR YOMAIRA Heparin Sodium (Porcine) 4,000 units 02/08/25 22:06 02/12/25 23:28 Heparin Sodium 5,000 Units/Ml Vial IV PUSH 4,000 units PRN PRN Administration aPTT less than 55 seconds Hydralazine HCl 25 mg 02/07/25 17:12 Hydralazine Hcl 25 Mg Tablet PO Q8H PRN Hypertensive Emergency Dextrose 1,000 mls @ 100 mls/hr 02/06/25 15:03 Dextrose 5% 1,000 Ml IVPB PRN PRN Hypoglycemia Protocol Insulin Aspart 2 - 5 units 02/06/25 17:00 02/14/25 09:27 Insulin Aspart (*Bkc) 100 Units/Ml SUB-Q Not Given TIDWM YOMAIRA Protocol Insulin Aspart 3 units 02/11/25 08:00 02/14/25 09:27 Insulin Aspart (*Bkc) 100 Units/Ml SUB-Q 3 units TIDWM YOMAIRA Administration Insulin Glargine 5 units 02/11/25 09:00 02/14/25 09:27 Insulin Glargine (*Bkc) 100 Units/Ml SUB-Q 5 units DAILY YOMAIRA Administration Ondansetron HCl 4 mg 02/06/25 15:03 Ondansetron Inj 4 Mg/2 Ml Vial IV PUSH Q4H PRN Nausea Umeclidinium/Vilanterol 1 puff 02/10/25 10:35 02/14/25 07:11 Umeclidinium/Vilanterol 62.5-25 Mcg Ellipta INHALATION 1 puff DAILYRT YOMAIRA Administration Radiology Results: ITS Impressions Head CT 02/06/25 12:24 IMPRESSION: 1. No acute intracranial findings. Chest/Abdomen/Pelvis CTA 02/06/25 13:40 IMPRESSION: 1. No pulmonary embolism identified. 2. Moderate-sized bilateral pleural effusions. 3. Moderate-sized consolidations in the lower lobes and right middle lobe. Recommend follow-up to resolution. 4. Small to moderate size ground glass opacity scattered throughout both lungs most prominent in the upper lobes. Recommend follow-up to resolution. 5. Moderate-sized pericardial effusion. 6. Cholelithiasis. 7. Small amount of fluid and fat stranding scattered throughout the abdomen and pelvis for prominent in the right abdomen. 8. Concentric thickening of the cintron of the moderately distended bladder. Differential includes incomplete bladder wall distention, cystitis or sequelae from bladder outlet obstruction. 9. Moderate nonspecific anasarca. 10. Small bilateral fat-containing inguinal hernias, larger on the right which also contains fluid Renal Ultrasound 02/08/25 14:41 IMPRESSION: 1. No hydronephrosis. Venous Doppler Study 02/08/25 17:10 IMPRESSION: 1. Deep venous thrombosis at the bilateral popliteal veins. Findings were discussed with Polo Gee, the nurse caring for the patient, at 5:18 PM. Thoracentesis Ultrasound 02/09/25 14:20 IMPRESSION: 1. Successful ultrasound-guided thoracentesis yielding 1100 mL of straw-colored fluid. Chest X-Ray 02/13/25 10:27 Impression: CHF. Superimposed pneumonia. The findings appear relatively unchanged Labs Labs: Laboratory Results - last 24 hr 02/11/25 02/13/25 02/13/25 05:56 11:53 12:20 WBC RBC Hgb Hct MCV MCH MCHC RDW Plt Count MPV Immature Gran % (Auto) Neut % (Auto) Lymph % (Auto) [place] % (Auto) Eos % (Auto) Baso % (Auto) Lymph # (Auto) [place] # (Auto) Eos # (Auto) Baso # (Auto) Abs Immat Gran (auto) Absolute Neuts (auto) Absolute Nucleated RBC Band Neutrophils % Nucleated RBC % Platelet Estimate % Immature Plt Fraction Hypochromasia Schistocytes APTT 78.2 H Sodium Potassium Chloride Carbon Dioxide Anion Gap BUN Creatinine Estim Creat Clear Calc Estimated GFR Glucose POC Capillary Glucose 148 H Calcium Phosphorus Albumin Urine Albumin 1430.1 02/13/25 02/13/25 02/14/25 16:48 20:57 04:55 WBC 5.7 RBC 4.13 L Hgb 11.0 L Hct 36.9 L MCV 89.3 MCH 26.6 MCHC 29.8 L RDW 15.0 H Plt Count 122 L MPV 12.0 H Immature Gran % (Auto) 0.7 H Neut % (Auto) 74.6 H Lymph % (Auto) 13.8 L [place] % (Auto) 9.4 H Eos % (Auto) 1.1 Baso % (Auto) 0.4 Lymph # (Auto) 0.78 L [place] # (Auto) 0.5 Eos # (Auto) 0.1 Baso # (Auto) 0.0 Abs Immat Gran (auto) 0.04 H Absolute Neuts (auto) 4.2 Absolute Nucleated RBC 0.000 Band Neutrophils % Not Reportable Nucleated RBC % 0.0 Platelet Estimate Slightly decreased % Immature Plt Fraction 8.0 Hypochromasia 1+ Schistocytes None seen APTT Sodium 138 Potassium 4.8 Chloride 101 Carbon Dioxide 33 H Anion Gap 4 BUN 51 H Creatinine 1.81 H Estim Creat Clear Calc 39 Estimated GFR 37 L Glucose 131 H POC Capillary Glucose 161 H 173 H Calcium 8.4 Phosphorus 3.5 Albumin 3.1 L Urine Albumin 02/14/25 08:47 WBC RBC Hgb Hct MCV MCH MCHC RDW Plt Count MPV Immature Gran % (Auto) Neut % (Auto) Lymph % (Auto) [place] % (Auto) Eos % (Auto) Baso % (Auto) Lymph # (Auto) [place] # (Auto) Eos # (Auto) Baso # (Auto) Abs Immat Gran (auto) Absolute Neuts (auto) Absolute Nucleated RBC Band Neutrophils % Nucleated RBC % Platelet Estimate % Immature Plt Fraction Hypochromasia Schistocytes APTT Sodium Potassium Chloride Carbon Dioxide Anion Gap BUN Creatinine Estim Creat Clear Calc Estimated GFR Glucose POC Capillary Glucose 186 H Calcium Phosphorus Albumin Urine Albumin Quality VTE Prophylaxis VTE prophylaxis: pharmacologic ordered
--- NOTE | 2025-02-14 13:06 | PCOTNOTE ---
Attempted to see Patient at this time. Patient refuses to participate, states, everybody is stupid here, leave me alone.
[2025-02-14] MEDS: FUROSEMIDE 40 MG TABLET PO (13:19)
[2025-02-15] VITALS (13 sets, daily range): BP systolic 150–177; BP diastolic 71–91; PULSE 95–99; RESP 19–20; TEMP 36.5–37.1; O2SAT 86–96
[2025-02-15 05:37] LABS: Alanine Aminotransferase 16 U/L (6-50); Albumin Level 3.1 g/dL (3.5-5.1); Alkaline Phosphatase 92 U/L (38-126); Anion Gap 3 mmol/L (4-12); Aspartate Amino Transferase 27 U/L (17-59); Bilirubin,Total 0.3 mg/dL (0.2-1.3); Blood Urea Nitrogen 47 mg/dL (9-20); Calcium 8.4 mg/dL (8.4-10.2); Carbon Dioxide 32 mmol/L (22-30); Chloride 102 mmol/L (98-107); Estimated CRCL calculation 40 ml/min; Estimated Glomerular Filt Rate 38; Glucose 168 mg/dL (65-110); Magnesium 1.6 mg/dL (1.6-2.3); Potassium 4.9 mmol/L (3.4-5.0); Sodium 137 mmol/L (137-145); Total Protein 6.4 g/dL (6.3-8.2)
[2025-02-15 05:39] LABS: Hematocrit 35.5 % (42.0-52.0); Hemoglobin 10.6 g/dL (14.0-18.0); Immature Granulocyte Percent A 0.5 % (0-0.5); Immature Platelet Fraction Pct 8.2 % (0.9-11.2); Lymphocytes Absolute Auto 0.62 K/mm3 (0.9-3.2); Mean Corpuscular HGB Conc 29.9 g/dl (32-36); Mean Corpuscular Hemoglobin 26.8 pg (26-34); Mean Corpuscular Volume 89.9 fl (80-100); Nucleated Red Blood Cells Absolute Auto 0.000 K/mm3 (0.0-0.012); Nucleated Red Blood Cells Perc 0.0 % (0.0-0.2); Platelet Count Result 125 k/mm3 (150-375); Red Blood Count 3.95 M/mm3 (4.6-6.20); White Blood Count 6.0 K/mm3 (4.5-10.0)
[2025-02-15 06:00] LABS: Hypochromasia 1+; Schistocytes None Seen
[2025-02-15] MEDS: UMECLIDINIUM/VILANTEROL 62.5-25 MCG ELLIPTA 1 PUFF INHALATION (08:24)
[2025-02-15] MEDS: APIXABAN 5 MG TABLET PO ×2 (08:31→20:23)
[2025-02-15] MEDS: FUROSEMIDE 40 MG TABLET PO (08:32)
[2025-02-15] MEDS: INSULIN GLARGINE (*BKC) 100 UNITS/ML SUB-Q (08:32)
[2025-02-15] MEDS: BENZONATATE 100 MG CAPSULE PO (08:32)
[2025-02-15] MEDS: INSULIN ASPART (*BKC) 100 UNITS/ML SUB-Q (08:32)
--- NOTE | 2025-02-15 08:37 | PCNWS ---
Weekly nutritional screen. Patient is tolerating current diet with adequate intake. No weight loss reported. No nutritional needs at this time.
--- NOTE | 2025-02-15 11:14 | HOMEO2EVAL ---
Evaluation was performed at [facility] Home Oxygen Evaluation RC: Home Oxygen (O2) Evaluation Start: 02/15/25 10:33 Freq: ONCE Status: Active Protocol: RPE Activity Type Activity Date Activity User E-sign Co-sign Detail Recorded Client Recorded Date Recorded By Document 02/15/25 10:45 [email or web address] [email or web address] 02/15/25 11:13 DJO Document 02/15/25 10:50 [email or web address] [email or web address] 02/15/25 11:13 DJO Document 02/15/25 10:55 [email or web address] [email or web address] 02/15/25 11:13 DJO 02/15/25 02/15/25 02/15/25 10:45 10:50 10:55 Home O2 Evaluation [Oxygen] -Test Phase Resting Resting Resting -Oxygen Delivery Room Air Nasal Cannula Nasal Cannula -Oxygen Flow Rate (L/min) 1 2 [Pulse Oximetry] -Pulse Oximetry (90-100 %) 86 L 88 L 91 [Pulse Rate] -Pulse Rate (60-100 beats/min) 99 96 [Comments] -Home Oxygen Evaluation Comments PT NON AMBULATORY [Charges] -Evaluation Charges O2 Evaluation by Pulmonary
--- NOTE | 2025-02-15 11:14 | HOMEO2EVAL ---
Evaluation was performed at [facility] Home Oxygen Evaluation RC: Home Oxygen (O2) Evaluation Start: 02/15/25 10:33 Freq: ONCE Status: Active Protocol: RPE Activity Type Activity Date Activity User E-sign Co-sign Detail Recorded Client Recorded Date Recorded By Document 02/15/25 10:45 [email or web address] [email or web address] 02/15/25 11:13 DJO Document 02/15/25 10:50 [email or web address] [email or web address] 02/15/25 11:13 DJO Document 02/15/25 10:55 [email or web address] [email or web address] 02/15/25 11:13 DJO 02/15/25 02/15/25 02/15/25 10:45 10:50 10:55 Home O2 Evaluation [Oxygen] -Test Phase Resting Resting Resting -Oxygen Delivery Room Air Nasal Cannula Nasal Cannula -Oxygen Flow Rate (L/min) 1 2 [Pulse Oximetry] -Pulse Oximetry (90-100 %) 86 L 88 L 91 [Pulse Rate] -Pulse Rate (60-100 beats/min) 99 96 [Comments] -Home Oxygen Evaluation Comments PT NON AMBULATORY [Charges] -Evaluation Charges O2 Evaluation by Pulmonary
--- NOTE | 2025-02-15 13:36 | P.PNNP_ITS ---
Progress Note: A&P Assessment and Plan (1) Acute kidney injury: Code(s): N17.9 - Acute kidney failure, unspecified Status: Acute Assessment and Plan: * slow improvement * as noted since hospitalization (admission creatinine 1.52mg/dl) * significant rise noted on 02/08 (1.61 --> 2.57mg/dL) * only previous labs to compare are from October 2022 - creatinine normal at that time (0.80mg/dL) * unclear if a component of chronic renal insufficiency/CKD at baseline...but risk factors noted: * suboptimal diabetes control complicated by PVD + diabetic retinopathy * hypertension * CHF * smoker * history of polysubstance abuse * hepatitis C * suspect multifactorial etiology: * fluctuating hemodynamics * infection/sepsis (UTI +/- pneumonia) * CHF exacerbation * IV diuretic therapy * contrast exposure (CTA on 02/06) - suspect this is reason for rise in creatinine on 02/08 * hypoxia * other (?) * evaluation to date noted: * renal ultrasound w/o obstruction * urine electrolytes (by FeUrea) prerenal * urine eosinophils negative * nephrotic range proteinuria * CPK normal * initial UA suggest infection * no critical electrolytes but difficult to assess if adequate urine output * follow-up on serologies * s/p bumex 1.5gm IV x 1 on 02/12 and 02/13 * on oral diuretic therapy (lasix 40mg qday) * follow CXR results * possible new baseline creatinine (?) * follow trend of repeat labs and UOP (2) Acute hypoxic respiratory failure: Code(s): J96.01 - Acute respiratory failure with hypoxia Status: Acute Assessment and Plan: * clinical improvement noted * complicated by hypercapnia (as noted by ABGs) * does not wear supplemental oxygen at baseline * due to several issues: * bilateral pleural effusions * CHF exacerbation * volume overload * pneumonia (?) * underlying reactive airway disease/COPD (?) -- although no evidence by imaging * pericardial effusion * complicated by extensive smoking history * s/p thoracentesis x 2 (left on 02/09 and right on 02/08) * pleural fluid analysis without evidence of infection/transudative * Pulmonary following with recommendations noted * unable to tolerated AVAPS * continue nebulizer treatments/inhalers * wean O2 as tolerated * continue therapy as outlined (3) Congestive heart failure: Qualifiers: Heart failure type: unspecified Heart failure chronicity: acute Q ualified Code(s): I50.9 - Heart failure, unspecified Code(s): I50.9 - Heart failure, unspecified Status: Suspected Assessment and Plan: * suspected on admission * Echo (on 02/07) noted: * left ventricular systolic function is mildly reduced, estimated at 45 - 50% (inferior/posterior hypokinesia) * left ventricular diastolic function is grade II diastolic dysfunction * mild aortic valve sclerosis. * mild mitral regurgitation * mildly enlarged ascending aorta, 4.2cm * rivial posterior pericardial effusion * elevated BNP noted * imaging noted on admission noted: * CXR: CHF. Superimposed probable pneumonia * CTA C/A/P: no pulmonary embolism identified; moderate-sized bilateral pleural effusions; moderate-sized consolidations in the lower lobes and right middle lobe; small to moderate size ground glass opacity scattered throughout both lungs most prominent in the upper lobes; moderate-sized pericardial effusion. * since renal function better, dosed with IV diuretics (IV bumex on 02/12 and 02/13) (4) Pleural effusion: Code(s): J90 - Pleural effusion, not elsewhere classified Status: Acute Assessment and Plan: * as noted by admission imaging * s/p left (on 02/09) and right (on 02/08) thoracentesis * 1100cc removed on right * 1100cc removed on left * pleural fluid analysis noted (see #2) * re-attempt at diuresis since renal function improved - IV bumex yesterday * alternatively, consider repeat thoracentesis * follow repeat imaging (5) Pneumonia: Qualifiers: Laterality: bilateral Lung location: unspecified part of lung P neumonia type: due to unspecified organism Qualified Code(s): J18.9 - Pneumonia, unspecified organism Code(s): J18.9 - Pneumonia, unspecified organism Status: Acute Assessment and Plan: * admission CXR and CT chest suggestive * however, no fevers and normal WBC; but noted hypoxia * viral testing for influenza/RSV/COVID negative * extended respiratory viral pathogen panel negative as well * follow culture data * furthermore, pleural fluid analysis argues against infection * on antibiotics (6) UTI (urinary tract infection): Qualifiers: Hematuria presence: with hematuria Urinary tract infection type: acute cystitis Qualified Code(s): N30.01 - Acute cystitis with hematuria Code(s): N39.0 - Urinary tract infection, site not specified Status: Acute Assessment and Plan: * admission UA suggestive * urine culture with Serratia marcescens * on antibiotics (7) Paroxysmal atrial fibrillation: Code(s): I48.0 - Paroxysmal atrial fibrillation Status: Chronic Assessment and Plan: * known history * rate controlled * on anticoagulation (8) Anemia: Code(s): D64.9 - Anemia, unspecified Status: Acute Assessment and Plan: * presumably secondary to GERONIMO and acute illness * no need for YOHANA at this time * follow trend of H/H (9) HTN (hypertension): Qualifiers: Hypertension type: primary hypertension Qualified Code(s): I10 - Essential (primary) hypertension Code(s): I10 - Essential (primary) hypertension Status: Chronic Assessment and Plan: * elevated on admission * no outpatient medications * started on medications during this hospitalization * follow trend of hemodynamics (10) Diabetes: Qualifiers: Diabetes mellitus type: type 2 Diabetes mellitus long-term insulin use: 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 Will continue to follow. L Time Spent With Patient Time: 56 minutes Subjective Date/time seen: 02/15/25 13:36 Interval history: Follow-up for acute kidney injury/acute renal failure (on chronic kidney disease?). Breathing/respiratory status status seems relatively stable at the time of my visit; no apparent distress noted when seen; renal function/creatinine relatively stable if not a bit better; no new issues/events overnight or earlier this morning. Exam 2 Narrative: General: elderly male in NAD Heart: normal S1 and S2; no rub Lungs: coarse with decreased breath sounds at bases Abdomen: soft, nontender, nondistended, positive bowel sounds Extremities: no cyanosis or clubbing; no edema; s/p bilateral BKAs Skin: warm and intact Objective Data Vital Signs Vital Signs: Vital Signs Temp Pulse Resp BP Pulse Ox O2 Del Method O2 Flow Rate 02/15/25 13:00 98.8 F 96 19 152/71 H 95 02/15/25 10:55 91 Nasal Cannula 2 02/15/25 10:50 96 88 L Nasal Cannula 1 02/15/25 10:45 99 86 L Room Air 02/15/25 08:25 96 20 91 High Flow Nasal Cannula 3 02/15/25 08:24 96 20 02/15/25 08:12 98 02/15/25 08:12 95 High Flow Nasal Cannula 3 02/15/25 04:00 95 02/15/25 03:57 97.7 F 96 20 150/87 H 95 02/15/25 00:00 95 02/14/25 23:06 90 90 High Flow Nasal Cannula 02/14/25 20:33 98.3 F 94 18 144/74 H 94 02/14/25 20:28 94 20 93 High Flow Nasal Cannula 3 02/14/25 20:08 97 High Flow Nasal Cannula 3 02/14/25 20:00 94 Intake/Output Intake/Output: Intake & Output 02/12/25 02/13/25 02/14/25 02/15/25 23:59 23:59 23:59 23:59 Intake Total 2396.8 1305.8 1250.5 1284 Balance 2396.8 1305.8 1250.5 1284 Meds/Results Medications: Active Medications Generic Name Dose Route Start Last Admin Trade Name Freq PRN Reason Stop Dose Admin Acetaminophen 650 mg 02/06/25 15:03 Acetaminophen 325 Mg Tablet PO Q4H PRN Mild Pain (1-3) or Fever Amlodipine Besylate 5 mg 02/12/25 09:00 02/15/25 08:31 Amlodipine Besylate 5 Mg Tablet PO 5 mg DAILY OMI Administration Apixaban 5 mg 02/13/25 21:00 02/15/25 08:31 Apixaban 5 Mg Tablet PO 5 mg Q12HR OMI Administration Benzonatate 100 mg 02/06/25 16:24 02/15/25 08:32 Benzonatate 100 Mg Capsule PO 100 mg TID PRN Administration Cough Dextrose 12.5 gm 02/06/25 15:03 Dextrose 50% 25 Gm/50 Ml Syringe IV PUSH PRN PRN Hypoglycemia Protocol Furosemide 40 mg 02/14/25 13:05 02/15/25 08:32 Furosemide 40 Mg Tablet PO 40 mg DAILY OMI Administration Glucagon 1 mg 02/06/25 15:03 02/11/25 21:37 Glucagon For Inj 1 Mg Vial IM 1 mg PRN PRN Administration Hypoglycemia Protocol Glucose 15 gm 02/06/25 15:03 Glucose Oral Gel 15 Gm Of Glucse In 37.5 Gm Tube PO PRN PRN Hypoglycemia Protocol Guaifenesin 1,200 mg 02/08/25 21:00 02/10/25 11:48 Guaifenesin 12 Hr 600 Mg Tabcr PO Not Given On Hold: 02/10/25 09:50 Q12HR OMI Hydralazine HCl 25 mg 02/07/25 17:12 Hydralazine Hcl 25 Mg Tablet PO Q8H PRN Hypertensive Emergency Dextrose 1,000 mls @ 100 mls/hr 02/06/25 15:03 Dextrose 5% 1,000 Ml IVPB PRN PRN Hypoglycemia Protocol Insulin Aspart 2 - 5 units 02/06/25 17:00 02/15/25 08:32 Insulin Aspart (*Bkc) 100 Units/Ml SUB-Q Not Given TIDWM OMI Protocol Insulin Aspart 3 units 02/11/25 08:00 02/15/25 08:32 Insulin Aspart (*Bkc) 100 Units/Ml SUB-Q 3 units TIDWM OMI Administration Insulin Glargine 5 units 02/11/25 09:00 02/15/25 08:32 Insulin Glargine (*Bkc) 100 Units/Ml SUB-Q 5 units DAILY OMI Administration Ondansetron HCl 4 mg 02/06/25 15:03 Ondansetron Inj 4 Mg/2 Ml Vial IV PUSH Q4H PRN Nausea Umeclidinium/Vilanterol 1 puff 02/10/25 10:35 02/15/25 08:24 Umeclidinium/Vilanterol 62.5-25 Mcg Ellipta INHALATION 1 puff DAILYRT OMI Administration Radiology Results: ITS Impressions Head CT 02/06/25 12:24 IMPRESSION: 1. No acute intracranial findings. Chest/Abdomen/Pelvis CTA 02/06/25 13:40 IMPRESSION: 1. No pulmonary embolism identified. 2. Moderate-sized bilateral pleural effusions. 3. Moderate-sized consolidations in the lower lobes and right middle lobe. Recommend follow-up to resolution. 4. Small to moderate size ground glass opacity scattered throughout both lungs most prominent in the upper lobes. Recommend follow-up to resolution. 5. Moderate-sized pericardial effusion. 6. Cholelithiasis. 7. Small amount of fluid and fat stranding scattered throughout the abdomen and pelvis for prominent in the right abdomen. 8. Concentric thickening of the cintron of the moderately distended bladder. Differential includes incomplete bladder wall distention, cystitis or sequelae from bladder outlet obstruction. 9. Moderate nonspecific anasarca. 10. Small bilateral fat-containing inguinal hernias, larger on the right which also contains fluid Renal Ultrasound 02/08/25 14:41 IMPRESSION: 1. No hydronephrosis. Venous Doppler Study 02/08/25 17:10 IMPRESSION: 1. Deep venous thrombosis at the bilateral popliteal veins. Findings were discussed with Polo Gee, the nurse caring for the patient, at 5:18 PM. Thoracentesis Ultrasound 02/09/25 14:20 IMPRESSION: 1. Successful ultrasound-guided thoracentesis yielding 1100 mL of straw-colored fluid. Chest X-Ray 02/14/25 12:59 IMPRESSION: 1. No significant change. 2. Pleural effusions with bibasilar atelectasis and/or airspace disease. 3. Interstitial pulmonary edema and/or pneumonitis. Labs Labs: Laboratory Tests 02/15/25 04:45 02/15/25 04:45 Calcium 8.4 Magnesium 1.6 Total Bilirubin 0.3 AST 27 ALT 16 Alkaline Phosphatase 92 Total Protein 6.4 Albumin 3.1 L Microbiology 02/11/25 05:56 Urine Clean Catch Specimen Source - Final 02/11/25 05:56 Urine Clean Catch Streptococcus pneumoniae Ag Screen - Final 02/11/25 05:56 Urine Clean Catch Sterile Body Fluid Culture - Final 02/11/25 05:56 Urine Clean Catch Organism Identification - Final 02/11/25 05:56 Urine Clean Catch Microbiology Comment - Final 02/11/25 05:56 Urine - Urine Legionella pneumophila Serogrp 1 Ag - Preliminary
--- NOTE | 2025-02-15 13:36 | PM.PNNEP ---
Progress Note: A&P Assessment and Plan (1) Acute kidney injury: Code(s): N17.9 - Acute kidney failure, unspecified Status: Acute Assessment and Plan: slow improvement as noted since hospitalization (admission creatinine 1.52mg/dl) significant rise noted on 02/08 (1.61 --> 2.57mg/dL) only previous labs to compare are from October 2022 - creatinine normal at that time (0.80mg/dL) unclear if a component of chronic renal insufficiency/CKD at baseline...but risk factors noted: suboptimal diabetes control complicated by PVD + diabetic retinopathy hypertension CHF smoker history of polysubstance abuse hepatitis C suspect multifactorial etiology: fluctuating hemodynamics infection/sepsis (UTI +/- pneumonia) CHF exacerbation IV diuretic therapy contrast exposure (CTA on 02/06) - suspect this is reason for rise in creatinine on 02/08 hypoxia other (?) evaluation to date noted: renal ultrasound w/o obstruction urine electrolytes (by FeUrea) prerenal urine eosinophils negative nephrotic range proteinuria CPK normal initial UA suggest infection no critical electrolytes but difficult to assess if adequate urine output follow-up on serologies s/p bumex 1.5gm IV x 1 on 02/12 and 02/13 on oral diuretic therapy (lasix 40mg qday) follow CXR results possible new baseline creatinine (?) follow trend of repeat labs and UOP (2) Acute hypoxic respiratory failure: Code(s): J96.01 - Acute respiratory failure with hypoxia Status: Acute Assessment and Plan: clinical improvement noted complicated by hypercapnia (as noted by ABGs) does not wear supplemental oxygen at baseline due to several issues: bilateral pleural effusions CHF exacerbation volume overload pneumonia (?) underlying reactive airway disease/COPD (?) -- although no evidence by imaging pericardial effusion complicated by extensive smoking history s/p thoracentesis x 2 (left on 02/09 and right on 02/08) pleural fluid analysis without evidence of infection/transudative Pulmonary following with recommendations noted unable to tolerated AVAPS continue nebulizer treatments/inhalers wean O2 as tolerated continue therapy as outlined (3) Congestive heart failure: Qualifiers: Heart failure type: unspecified Heart failure chronicity: acute Qualified Code(s): I50.9 - Heart failure, unspecified Code(s): I50.9 - Heart failure, unspecified Status: Suspected Assessment and Plan: suspected on admission Echo (on 02/07) noted: left ventricular systolic function is mildly reduced, estimated at 45 - 50% (inferior/posterior hypokinesia) left ventricular diastolic function is grade II diastolic dysfunction mild aortic valve sclerosis. mild mitral regurgitation mildly enlarged ascending aorta, 4.2cm rivial posterior pericardial effusion elevated BNP noted imaging noted on admission noted: CXR: CHF. Superimposed probable pneumonia CTA C/A/P: no pulmonary embolism identified; moderate-sized bilateral pleural effusions; moderate-sized consolidations in the lower lobes and right middle lobe; small to moderate size ground glass opacity scattered throughout both lungs most prominent in the upper lobes; moderate-sized pericardial effusion. since renal function better, dosed with IV diuretics (IV bumex on 02/12 and 02/13) (4) Pleural effusion: Code(s): J90 - Pleural effusion, not elsewhere classified Status: Acute Assessment and Plan: as noted by admission imaging s/p left (on 02/09) and right (on 02/08) thoracentesis 1100cc removed on right 1100cc removed on left pleural fluid analysis noted (see #2) re-attempt at diuresis since renal function improved - IV bumex yesterday alternatively, consider repeat thoracentesis follow repeat imaging (5) Pneumonia: Qualifiers: Laterality: bilateral Lung location: unspecified part of lung Pneumonia type: due to unspecified organism Qualified Code(s): J18.9 - Pneumonia, unspecified organism Code(s): J18.9 - Pneumonia, unspecified organism Status: Acute Assessment and Plan: admission CXR and CT chest suggestive however, no fevers and normal WBC; but noted hypoxia viral testing for influenza/RSV/COVID negative extended respiratory viral pathogen panel negative as well follow culture data furthermore, pleural fluid analysis argues against infection on antibiotics (6) UTI (urinary tract infection): Qualifiers: Hematuria presence: with hematuria Urinary tract infection type: acute cystitis Qualified Code(s): N30.01 - Acute cystitis with hematuria Code(s): N39.0 - Urinary tract infection, site not specified Status: Acute Assessment and Plan: admission UA suggestive urine culture with Serratia marcescens on antibiotics (7) Paroxysmal atrial fibrillation: Code(s): I48.0 - Paroxysmal atrial fibrillation Status: Chronic Assessment and Plan: known history rate controlled on anticoagulation (8) Anemia: Code(s): D64.9 - Anemia, unspecified Status: Acute Assessment and Plan: presumably secondary to GERONIMO and acute illness no need for YOHANA at this time follow trend of H/H (9) HTN (hypertension): Qualifiers: Hypertension type: primary hypertension Qualified Code(s): I10 - Essential (primary) hypertension Code(s): I10 - Essential (primary) hypertension Status: Chronic Assessment and Plan: elevated on admission no outpatient medications started on medications during this hospitalization follow trend of hemodynamics (10) Diabetes: Qualifiers: Diabetes mellitus type: type 2 Diabetes mellitus retirement insulin use: with long term acute care registered nurse use Diabetes mellitus complication status: without complication Qualified Code(s): E11.9 - Type 2 diabetes mellitus without complications; 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 Will continue to follow. Time Spent With Patient Time: 56 minutes Subjective Date/time seen: 02/15/25 13:36 Interval history: Follow-up for acute kidney injury/acute renal failure (on chronic kidney disease?). Breathing/respiratory status status seems relatively stable at the time of my visit; no apparent distress noted when seen; renal function/creatinine relatively stable if not a bit better; no new issues/events overnight or earlier this morning. Exam Narrative: General: elderly male in NAD Heart: normal S1 and S2; no rub Lungs: coarse with decreased breath sounds at bases Abdomen: soft, nontender, nondistended, positive bowel sounds Extremities: no cyanosis or clubbing; no edema; s/p bilateral BKAs Skin: warm and intact Objective Data Vital Signs Vital Signs: Vital Signs Temp Pulse Resp BP Pulse Ox O2 Del Method O2 Flow Rate 02/15/25 13:00 98.8 F 96 19 152/71 H 95 02/15/25 10:55 91 Nasal Cannula 2 02/15/25 10:50 96 88 L Nasal Cannula 1 02/15/25 10:45 99 86 L Room Air 02/15/25 08:25 96 20 91 High Flow Nasal Cannula 3 02/15/25 08:24 96 20 02/15/25 08:12 98 02/15/25 08:12 95 High Flow Nasal Cannula 3 02/15/25 04:00 95 02/15/25 03:57 97.7 F 96 20 150/87 H 95 02/15/25 00:00 95 02/14/25 23:06 90 90 High Flow Nasal Cannula 02/14/25 20:33 98.3 F 94 18 144/74 H 94 02/14/25 20:28 94 20 93 High Flow Nasal Cannula 3 02/14/25 20:08 97 High Flow Nasal Cannula 3 02/14/25 20:00 94 Intake/Output Intake/Output: Intake & Output 02/12/25 02/13/25 02/14/25 02/15/25 23:59 23:59 23:59 23:59 Intake Total 2396.8 1305.8 1250.5 1284 Balance 2396.8 1305.8 1250.5 1284 Meds/Results Medications: Active Medications Generic Name Dose Route Start Last Admin Trade Name Freq PRN Reason Stop Dose Admin Acetaminophen 650 mg 02/06/25 15:03 Acetaminophen 325 Mg Tablet PO Q4H PRN Mild Pain (1-3) or Fever Amlodipine Besylate 5 mg 02/12/25 09:00 02/15/25 08:31 Amlodipine Besylate 5 Mg Tablet PO 5 mg DAILY OMI Administration Apixaban 5 mg 02/13/25 21:00 02/15/25 08:31 Apixaban 5 Mg Tablet PO 5 mg Q12HR MOI Administration Benzonatate 100 mg 02/06/25 16:24 02/15/25 08:32 Benzonatate 100 Mg Capsule PO 100 mg TID PRN Administration Cough Dextrose 12.5 gm 02/06/25 15:03 Dextrose 50% 25 Gm/50 Ml Syringe IV PUSH PRN PRN Hypoglycemia Protocol Furosemide 40 mg 02/14/25 13:05 02/15/25 08:32 Furosemide 40 Mg Tablet PO 40 mg DAILY OMI Administration Glucagon 1 mg 02/06/25 15:03 02/11/25 21:37 Glucagon For Inj 1 Mg Vial IM 1 mg PRN PRN Administration Hypoglycemia Protocol Glucose 15 gm 02/06/25 15:03 Glucose Oral Gel 15 Gm Of Glucse In 37.5 Gm Tube PO PRN PRN Hypoglycemia Protocol Guaifenesin 1,200 mg 02/08/25 21:00 02/10/25 11:48 Guaifenesin 12 Hr 600 Mg Tabcr PO Not Given On Hold: 02/10/25 09:50 Q12HR OMI Hydralazine HCl 25 mg 02/07/25 17:12 Hydralazine Hcl 25 Mg Tablet PO Q8H PRN Hypertensive Emergency Dextrose 1,000 mls @ 100 mls/hr 02/06/25 15:03 Dextrose 5% 1,000 Ml IVPB PRN PRN Hypoglycemia Protocol Insulin Aspart 2 - 5 units 02/06/25 17:00 02/15/25 08:32 Insulin Aspart (*Bkc) 100 Units/Ml SUB-Q Not Given TIDWM OMI Protocol Insulin Aspart 3 units 02/11/25 08:00 02/15/25 08:32 Insulin Aspart (*Bkc) 100 Units/Ml SUB-Q 3 units TIDWM OMI Administration Insulin Glargine 5 units 02/11/25 09:00 02/15/25 08:32 Insulin Glargine (*Bkc) 100 Units/Ml SUB-Q 5 units DAILY OMI Administration Ondansetron HCl 4 mg 02/06/25 15:03 Ondansetron Inj 4 Mg/2 Ml Vial IV PUSH Q4H PRN Nausea Umeclidinium/Vilanterol 1 puff 02/10/25 10:35 02/15/25 08:24 Umeclidinium/Vilanterol 62.5-25 Mcg Ellipta INHALATION 1 puff DAILYRT OMI Administration Radiology Results: ITS Impressions Head CT 02/06/25 12:24 IMPRESSION: 1. No acute intracranial findings. Chest/Abdomen/Pelvis CTA 02/06/25 13:40 IMPRESSION: 1. No pulmonary embolism identified. 2. Moderate-sized bilateral pleural effusions. 3. Moderate-sized consolidations in the lower lobes and right middle lobe. Recommend follow-up to resolution. 4. Small to moderate size ground glass opacity scattered throughout both lungs most prominent in the upper lobes. Recommend follow-up to resolution. 5. Moderate-sized pericardial effusion. 6. Cholelithiasis. 7. Small amount of fluid and fat stranding scattered throughout the abdomen and pelvis for prominent in the right abdomen. 8. Concentric thickening of the cintron of the moderately distended bladder. Differential includes incomplete bladder wall distention, cystitis or sequelae from bladder outlet obstruction. 9. Moderate nonspecific anasarca. 10. Small bilateral fat-containing inguinal hernias, larger on the right which also contains fluid Renal Ultrasound 02/08/25 14:41 IMPRESSION: 1. No hydronephrosis. Venous Doppler Study 02/08/25 17:10 IMPRESSION: 1. Deep venous thrombosis at the bilateral popliteal veins. Findings were discussed with Polo Gee, the nurse caring for the patient, at 5:18 PM. Thoracentesis Ultrasound 02/09/25 14:20 IMPRESSION: 1. Successful ultrasound-guided thoracentesis yielding 1100 mL of straw-colored fluid. Chest X-Ray 02/14/25 12:59 IMPRESSION: 1. No significant change. 2. Pleural effusions with bibasilar atelectasis and/or airspace disease. 3. Interstitial pulmonary edema and/or pneumonitis. Labs Labs: Laboratory Tests 02/15/25 04:45 02/15/25 04:45 Calcium 8.4 Magnesium 1.6 Total Bilirubin 0.3 AST 27 ALT 16 Alkaline Phosphatase 92 Total Protein 6.4 Albumin 3.1 L Microbiology 02/11/25 05:56 Urine Clean Catch Specimen Source - Final 02/11/25 05:56 Urine Clean Catch Streptococcus pneumoniae Ag Screen - Final 02/11/25 05:56 Urine Clean Catch Sterile Body Fluid Culture - Final 02/11/25 05:56 Urine Clean Catch Organism Identification - Final 02/11/25 05:56 Urine Clean Catch Microbiology Comment - Final 02/11/25 05:56 Urine - Urine Legionella pneumophila Serogrp 1 Ag - Preliminary
--- NOTE | 2025-02-15 13:52 | P.PNIM_ITS ---
Progress Note: A&P Assessment and Plan (1) Sepsis: Qualifiers: Sepsis acute organ dysfunction status: without acute organ dysfunction Sepsis type: sepsis due to unspecified organism Qualified Code(s): A41.9 - S epsis, unspecified organism Code(s): A41.9 - Sepsis, unspecified organism Status: Acute Assessment and Plan: Met SIRS criteria on admission: HR >90, RR >20. +Hypoxia, -HypoTN. Blood cultures obtained on 02/06, follow. On admission chest x-ray shows CHF with superimposed probable pneumonia On admission CTA chest/abdomen/pelvis negative for PE but patient had moderate size bilateral pleural effusion, moderate size consolidation in the lower lobes and right middle lobe Lactic acid was normal Ceftriaxone switched to cefepime as patient becomes more hypoxic Vanc and Flagyl was added 02/08 IV antibiotics were deescalated was patient becomes Hemodynamically stable Last ceftriaxone dose was 02/12 Blood culture no growth to date (2) Acute on chronic respiratory failure with hypoxia and hypercapnia: Code(s): J96.21 - Acute and chronic respiratory failure with hypoxia; J96.22 - Acute and chronic respiratory failure with hypercapnia Status: Acute Assessment and Plan: Etiology of Respiratory Failure: Possible fluid overload from CHF vs pneumonia Imaging concerning for significant volume overload as evidenced by moderate pleural effusions, moderate nonspecific anasarca, moderate sized pericardial effusion. CTA negative for PE --Consults: pulmonary, cardiology, renal LABS WBC normal since admission 02/06 ABG: PH 7.305/CO2 64, HC03 31.1/O2 saturation 92.7% on 3L 02/08 ABG: Ph 7.297/53.2/25.4/O2 sat 901. on 6L 02/09 ABG: pH 7.246/ 55/23.4/ O2 sat 87.6 on 10L Acute respiratory failure air likely multifactorial including suspected CHF, multifocal pneumonia. Patient is an everyday smoker (1PPD), but no evidence of COPD on imaging. Initially started on Prednisone, now stopped. No wheezing --Pulmonary consulted, appreciate recommendations --nebulizers p.r.n --Off diuretics for GERONIMO --Antibiotics for UTI. --No evidence of pneumonia -- Tried BiPAP for an hour and took it off. Tried AVAPS 02/08 but didn't tolerate --Will need a walking O2 prior to discharge if tolerates (has prosthetics) --May need another thoracentesis DNR/DNI (3) Pneumonia: Qualifiers: Laterality: bilateral Lung location: unspecified part of lung Pneumonia type: due to unspecified organism Qualified Code(s): J18.9 - Pneumonia, unspecified organism Code(s): J18.9 - Pneumonia, unspecified organism Status: Acute Assessment and Plan: 02/09 CT Concerning for pneumonia but WBC has been normal. No fevers Started on Cap tx: Ceftriaxone and azithromycin IV. Changed to Cefepime, Vanc, Flagyl 02/08 since increased oxygen requirements. Stopped Vancomycin 02/09. Stopped cefepime and resumed Ceftriaxone primarily for UTI since no evidence of infection on pleural fluid -Appreciate pulmonary recommendations. --MRSA PCR negative --sputum culture - Viral PCR negative on 02/06 - Supportive care: Mucinex yomaira, Tessalon Perles p.r.n., DuoNebs p.r.n., Tylenol p.r.n. (4) Congestive heart failure: Qualifiers: Heart failure type: unspecified Heart failure chronicity: acute Qualified Code(s): I50.9 - Heart failure, unspecified Code(s): I50.9 - Heart failure, unspecified Status: Suspected Assessment and Plan: Suspected acute CHF. No previous echo available. Decreased LVEF 45-50% and inferior/posterior hypokinesia. Also noted to have a moderate pericardial effusion on CT 02/07 TTE 1. Complete two-dimensional, color flow and Doppler transthoracic echocardiogram is performed. 2. Concentric left ventricular hypertrophy with mild systolic dysfunction, inferior/posterior hypokinesia. 3. Grade 2 diastolic noncompliance. 4. Mild mitral regurgitation. 5. Mildly enlarged ascending aorta, 4.2 cm. 6. Trivial posterior pericardial effusion. see CXR and CT impressions above, concern for volume overload. No peripheral edema to bilateral thighs. BNP 99401 02/06, 88915 on 02/08 PLAN - started on Lasix 40 mg IV b.i.d, on hold for worsening GERONIMO -No QUANG/ARB with GERONIMO - monitor I&Os and daily weights - trend renal function -Cardiology consult for new heart failure, appreciate recommendations. Has a moderate pericardial effusion and limited medication options with GERONIMO Recommending lexiscan myoview outpatient to rule out CAD (5) Pleural effusion: Code(s): J90 - Pleural effusion, not elsewhere classified Status: Acute Assessment and Plan: moderate-sized bilateral pleural effusions noted on CTA, suspected CHF, see above currently requiring supplemental O2, wean as tolerated, maintain O2 sat greater than 92% --s/p Right & Left Thoracentesis. 1100 out on the right 02/08, 1100 on the left 02/09 --Unable to diuresis with GERONIMO. If continued improvement, could restart --Weaned to 2L<4L, follow oxygen requirements --Home oxygen eval (6) GERONIMO (acute kidney injury): Code(s): N17.9 - Acute kidney failure, unspecified Status: Acute Assessment and Plan: Baseline creatinine 0.7-0.9 from 2019 to 2022, no recent lab work available for comparison. Patient reports he has not been to the doctor in a couple of years Worsening despite diuresis & treatment of UTI. Recently received CT contrast. 4+ protein on initial UA Urine studies UA cloudy 3+ protein, trace LE. Protein/creat ratio 3.69, no eosinophils FeNa 1.2% indeterminate, FeUrea 27% suggests pre-renal Creatinine 1.52, BUN 34, GFR 46 upon admission on 02/06. CK 70 Bladder scan was 220 02/08 Total protein 6.8 Albumin 3.3 02/06 CTA showed concentric thickening of the cintron of the moderately distended bladder, differential including incomplete bladder wall distension, cystitis, or sequela from bladder outlet obstruction. UA concerning for UTI. Concern for CHF/volume overload as evidenced by a pleural effusions, moderate size pericardial effusion, and moderate nonspecific anasarca on CT. Started diuresis but now on hold for worsening GERONIMO 02/08 renal US--No Hydronephrosis PLAN Discussed with Nephrology, Dr Coker, and he okayed Lasix 40mg daily (7) UTI (urinary tract infection): Qualifiers: Hematuria presence: with hematuria Urinary tract infection type: acute cystitis Qualified Code(s): N30.01 - Acute cystitis with hematuria Code(s): N39.0 - Urinary tract infection, site not specified Status: Acute Assessment and Plan: UA: Cloudy, 4+ protein, trace glucose, trace ketones, 2+ blood, 1+ leuk history is, 11-28 RBC, 51-100 WBC, occasional epithelial cells, no bacteria - UC pending, Growing GNB. Growing serratia marcescens - previous micro reviewed, grew Klebsiella in 2020 that was resistant to ampicillin only - started on Ceftriaxone on 02/06. 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 Will need a meter. Can consider oral meds for discharge (9) Paroxysmal atrial fibrillation: Code(s): I48.0 - Paroxysmal atrial fibrillation Status: Chronic Assessment and Plan: History of paroxysmal AFib, currently stable. - initial EKG showed sinus tachycardia, NSR - telemetry monitoring --Continue Eliquis (10) HTN (hypertension): Qualifiers: Hypertension type: primary hypertension Qualified Code(s): I10 - Essential (primary) hypertension Code(s): I10 - Essential (primary) hypertension Status: Chronic Assessment and Plan: Reports he is not on any home medications, BP goal <140/80 Continue amlodipine with prn hydralazine monitor (11) Popliteal DVT (deep venous thrombosis): Code(s): I82.439 - Acute embolism and thrombosis of unspecified popliteal vein Status: Acute Assessment and Plan: Doppler ultrasound 02/08/2025 shows deep venous thrombosis at the bilateral popliteal Will initiate Eliquis 5 mg twice a day for 3-6 months Plan Diet: Diabetic GI Prophylaxis: N/a DVT Prophylaxis: patient will be started on Eliquis IV fluids: 1L bolus, no further fluids due to concern for CHF Lines/Tubes: Peripheral IV Code Status: DNR/DNI Disposition: Pending placement Subjective Date/time seen: 02/15/25 13:52 Interval history: Patient comfortable at bedside Discussed with [employer] Dr Coker and he okayed lasix 40mg daily Awaiting SNF placement Review of Systems Review of Systems: All systems reviewed & are unremarkable except as noted in HPI and below Exam Narrative: APPEARANCE: No acute distress, cachectic. EYES: EOMI HEENT: Normocephalic, atraumatic, OMM RESPIRATORY: On supplemental oxygen, no wheezing or crackles. CARDIOVASCULAR: RRR, S1 and S2 without murmurs rubs or gallops. ABDOMINAL: Soft, nontender, nondistended, no rebound or guarding MUSCULOSKELETAl: Bilateral BKA, ambulate by using prostatic leg NEURO: Awake and alert. Following commands, speech normal, no focal deficits SKIN:: Warm, dry. No rashes lesions or abrasions PSYCHIATRIC: Normal affect/mood Const: General: comfortable and no acute distress Other: , male, older than stated age, acute on chronic ill appearance. Disheveled. HENMT: Face/Nose/Sinus: Normal nares present Mouth: Yes dry mucous membranes Eyes: General: appearance normal, both eyes and all related structures Sclera: sclerae normal Pupils: Equal, round and reactive pupils present EOM: EOMs intact bilaterally Resp: Effort & Inspection: normal respiratory effort Other: absent on the right starting mid lung to base, decreased from mid lung to base on the left. Faint crackles noted to the left lung base. No wheezing. Nasal cannula place. Cardio: Rate: regular rate Rhythm: regular rhythm Other: S1-S2 present without murmur, rub, ectopy GI: Other: Abdomen soft, nondistended, nontender. Normoactive bowel sounds in all quadrants. Skin: General skin exam: normal color and no rashes or lesions noted Wounds: no wounds Neuro: Cranial nerves: Yes Equal, round and reactive pupils present Speech: normal speech Motor exam (neuro): 5/5 motor strength present throughout Sensory Exam: normal sensation Other: Generalized weakness, A&O x3 Extrem: Other: bilateral BKA. no edema noted to bilateral thighs. Psych: Mental Status: mental status grossly normal Affect: Sad affect present Other: Fair to poor insight and judgment. Objective Data Vital Signs Vital Signs: Vital Signs - 24 hr 02/14/25 14:38 02/14/25 16:00 02/14/25 17:33 Temperature 98 F 98 F Pulse Rate 96 91 94 Respiratory Rate 17 16 Blood Pressure 168/64 H 154/79 H Pulse Oximetry 96 97 Oxygen Delivery Oxygen Flow Rate 02/14/25 20:00 02/14/25 20:08 02/14/25 20:28 Temperature Pulse Rate 94 94 Respiratory Rate 20 Blood Pressure Pulse Oximetry 97 93 Oxygen Delivery High Flow Nasal Cannula High Flow Nasal Cannula Oxygen Flow Rate 3 3 02/14/25 20:33 02/14/25 23:06 02/15/25 00:00 Temperature 98.3 F Pulse Rate 94 90 95 Respiratory Rate 18 Blood Pressure 144/74 H Pulse Oximetry 94 90 Oxygen Delivery High Flow Nasal Cannula Oxygen Flow Rate 02/15/25 03:57 02/15/25 04:00 02/15/25 08:12 Temperature 97.7 F Pulse Rate 96 95 Respiratory Rate 20 Blood Pressure 150/87 H Pulse Oximetry 95 95 Oxygen Delivery High Flow Nasal Cannula Oxygen Flow Rate 3 02/15/25 08:12 02/15/25 08:24 02/15/25 08:25 Temperature Pulse Rate 98 96 96 Respiratory Rate 20 20 Blood Pressure Pulse Oximetry 91 Oxygen Delivery High Flow Nasal Cannula Oxygen Flow Rate 3 02/15/25 10:45 02/15/25 10:50 02/15/25 10:55 Temperature Pulse Rate 99 96 Respiratory Rate Blood Pressure Pulse Oximetry 86 L 88 L 91 Oxygen Delivery Room Air Nasal Cannula Nasal Cannula Oxygen Flow Rate 1 2 Intake/Output Intake/Output: Intake & Output 02/12/25 02/13/25 02/14/25 02/15/25 23:59 23:59 23:59 23:59 Intake Total 2396.8 1305.8 1250.5 972 Balance 2396.8 1305.8 1250.5 972 Meds/Results Medications: Active Medications Generic Name Dose Route Start Last Admin Trade Name Freq PRN Reason Stop Dose Admin Acetaminophen 650 mg 02/06/25 15:03 Acetaminophen 325 Mg Tablet PO Q4H PRN Mild Pain (1-3) or Fever Amlodipine Besylate 5 mg 02/12/25 09:00 02/15/25 08:31 Amlodipine Besylate 5 Mg Tablet PO 5 mg DAILY YOMAIRA Administration Apixaban 5 mg 02/13/25 21:00 02/15/25 08:31 Apixaban 5 Mg Tablet PO 5 mg Q12HR YOMAIRA Administration Benzonatate 100 mg 02/06/25 16:24 02/15/25 08:32 Benzonatate 100 Mg Capsule PO 100 mg TID PRN Administration Cough Dextrose 12.5 gm 02/06/25 15:03 Dextrose 50% 25 Gm/50 Ml Syringe IV PUSH PRN PRN Hypoglycemia Protocol Furosemide 40 mg 02/14/25 13:05 02/15/25 08:32 Furosemide 40 Mg Tablet PO 40 mg DAILY YOMAIRA Administration Glucagon 1 mg 02/06/25 15:03 02/11/25 21:37 Glucagon For Inj 1 Mg Vial IM 1 mg PRN PRN Administration Hypoglycemia Protocol Glucose 15 gm 02/06/25 15:03 Glucose Oral Gel 15 Gm Of Glucse In 37.5 Gm Tube PO PRN PRN Hypoglycemia Protocol Guaifenesin 1,200 mg 02/08/25 21:00 02/10/25 11:48 Guaifenesin 12 Hr 600 Mg Tabcr PO Not Given On Hold: 02/10/25 09:50 Q12HR YOMAIRA Hydralazine HCl 25 mg 02/07/25 17:12 Hydralazine Hcl 25 Mg Tablet PO Q8H PRN Hypertensive Emergency Dextrose 1,000 mls @ 100 mls/hr 02/06/25 15:03 Dextrose 5% 1,000 Ml IVPB PRN PRN Hypoglycemia Protocol Insulin Aspart 2 - 5 units 02/06/25 17:00 02/15/25 08:32 Insulin Aspart (*Bkc) 100 Units/Ml SUB-Q Not Given TIDWM YOMAIRA Protocol Insulin Aspart 3 units 02/11/25 08:00 02/15/25 08:32 Insulin Aspart (*Bkc) 100 Units/Ml SUB-Q 3 units TIDWM YOMAIRA Administration Insulin Glargine 5 units 02/11/25 09:00 02/15/25 08:32 Insulin Glargine (*Bkc) 100 Units/Ml SUB-Q 5 units DAILY YOMAIRA Administration Ondansetron HCl 4 mg 02/06/25 15:03 Ondansetron Inj 4 Mg/2 Ml Vial IV PUSH Q4H PRN Nausea Umeclidinium/Vilanterol 1 puff 02/10/25 10:35 02/15/25 08:24 Umeclidinium/Vilanterol 62.5-25 Mcg Ellipta INHALATION 1 puff DAILYRT YOMAIRA Administration Radiology Results: ITS Impressions Head CT 02/06/25 12:24 IMPRESSION: 1. No acute intracranial findings. Chest/Abdomen/Pelvis CTA 02/06/25 13:40 IMPRESSION: 1. No pulmonary embolism identified. 2. Moderate-sized bilateral pleural effusions. 3. Moderate-sized consolidations in the lower lobes and right middle lobe. Recommend follow-up to resolution. 4. Small to moderate size ground glass opacity scattered throughout both lungs most prominent in the upper lobes. Recommend follow-up to resolution. 5. Moderate-sized pericardial effusion. 6. Cholelithiasis. 7. Small amount of fluid and fat stranding scattered throughout the abdomen and pelvis for prominent in the right abdomen. 8. Concentric thickening of the cintron of the moderately distended bladder. Differential includes incomplete bladder wall distention, cystitis or sequelae from bladder outlet obstruction. 9. Moderate nonspecific anasarca. 10. Small bilateral fat-containing inguinal hernias, larger on the right which also contains fluid Renal Ultrasound 02/08/25 14:41 IMPRESSION: 1. No hydronephrosis. Venous Doppler Study 02/08/25 17:10 IMPRESSION: 1. Deep venous thrombosis at the bilateral popliteal veins. Findings were discussed with Polo Gee, the nurse caring for the patient, at 5:18 PM. Thoracentesis Ultrasound 02/09/25 14:20 IMPRESSION: 1. Successful ultrasound-guided thoracentesis yielding 1100 mL of straw-colored fluid. Chest X-Ray 02/14/25 12:59 IMPRESSION: 1. No significant change. 2. Pleural effusions with bibasilar atelectasis and/or airspace disease. 3. Interstitial pulmonary edema and/or pneumonitis. Labs Labs: Laboratory Results - last 24 hr 02/14/25 02/14/25 02/15/25 17:16 20:40 04:45 WBC 6.0 RBC 3.95 L Hgb 10.6 L Hct 35.5 L MCV 89.9 MCH 26.8 MCHC 29.9 L RDW 14.9 H Plt Count 125 L MPV 11.6 H Immature Gran % (Auto) 0.5 Neut % (Auto) 78.5 H Lymph % (Auto) 10.3 L [place] % (Auto) 9.1 H Eos % (Auto) 1.3 Baso % (Auto) 0.3 Lymph # (Auto) 0.62 L [place] # (Auto) 0.6 Eos # (Auto) 0.1 Baso # (Auto) 0.0 Abs Immat Gran (auto) 0.03 Absolute Neuts (auto) 4.7 Absolute Nucleated RBC 0.000 Band Neutrophils % Not Reportable Nucleated RBC % 0.0 Platelet Estimate Decreased % Immature Plt Fraction 8.2 Hypochromasia 1+ Schistocytes None seen Sodium 137 Potassium 4.9 Chloride 102 Carbon Dioxide 32 H Anion Gap 3 L BUN 47 H Creatinine 1.79 H Estim Creat Clear Calc 40 Estimated GFR 38 L Glucose 168 H POC Capillary Glucose 148 H 164 H Calcium 8.4 Magnesium 1.6 Total Bilirubin 0.3 AST 27 ALT 16 Alkaline Phosphatase 92 Total Protein 6.4 Albumin 3.1 L 02/15/25 02/15/25 08:03 11:49 WBC RBC Hgb Hct MCV MCH MCHC RDW Plt Count MPV Immature Gran % (Auto) Neut % (Auto) Lymph % (Auto) [place] % (Auto) Eos % (Auto) Baso % (Auto) Lymph # (Auto) [place] # (Auto) Eos # (Auto) Baso # (Auto) Abs Immat Gran (auto) Absolute Neuts (auto) Absolute Nucleated RBC Band Neutrophils % Nucleated RBC % Platelet Estimate % Immature Plt Fraction Hypochromasia Schistocytes Sodium Potassium Chloride Carbon Dioxide Anion Gap BUN Creatinine Estim Creat Clear Calc Estimated GFR Glucose POC Capillary Glucose 200 H 204 H Calcium Magnesium Total Bilirubin AST ALT Alkaline Phosphatase Total Protein Albumin Quality VTE Prophylaxis VTE prophylaxis: pharmacologic ordered
--- NOTE | 2025-02-15 17:03 | PC.NURSE ---
Patient ripped IV out and took wristband off as well.
--- NOTE | 2025-02-15 18:50 | PC.NURSE ---
Patient began refusing medications towards end of shift due to wanting to go home.
[2025-02-16 05:15] LABS: Hematocrit 34.4 % (42.0-52.0); Hemoglobin 10.4 g/dL (14.0-18.0); Immature Granulocyte Percent A 0.3 % (0-0.5); Immature Platelet Fraction Pct 7.2 % (0.9-11.2); Lymphocytes Absolute Auto 0.76 K/mm3 (0.9-3.2); Mean Corpuscular HGB Conc 30.2 g/dl (32-36); Mean Corpuscular Hemoglobin 27.0 pg (26-34); Mean Corpuscular Volume 89.4 fl (80-100); Nucleated Red Blood Cells Absolute Auto 0.000 K/mm3 (0.0-0.012); Nucleated Red Blood Cells Perc 0.0 % (0.0-0.2); Platelet Count Result 123 k/mm3 (150-375); Red Blood Count 3.85 M/mm3 (4.6-6.20); White Blood Count 5.9 K/mm3 (4.5-10.0)
[2025-02-16 05:34] LABS: Albumin Level 3.1 g/dL (3.5-5.1); Anion Gap 4 mmol/L (4-12); Blood Urea Nitrogen 47 mg/dL (9-20); Carbon Dioxide 33 mmol/L (22-30); Chloride 101 mmol/L (98-107); Estimated CRCL calculation 44 ml/min; Estimated Glomerular Filt Rate 42; Potassium 4.7 mmol/L (3.4-5.0); Sodium 138 mmol/L (137-145)
[2025-02-16 05:46] LABS: Calcium 8.5 mg/dL (8.4-10.2); Glucose 209 mg/dL (65-110)
[2025-02-16 08:13] VITALS: O2SAT 93
[2025-02-16] MEDS: UMECLIDINIUM/VILANTEROL 62.5-25 MCG ELLIPTA 1 PUFF INHALATION (08:13)
[2025-02-16 08:45] VITALS: BP 172/86; PULSE 89; RESP 14; TEMP 36.3; O2SAT 96
[2025-02-16 08:52] VITALS: PULSE 98; RESP 20; O2SAT 98
[2025-02-16] MEDS: FUROSEMIDE 40 MG TABLET PO (08:52)
[2025-02-16] MEDS: APIXABAN 5 MG TABLET PO (08:52)
[2025-02-16] MEDS: INSULIN GLARGINE (*BKC) 100 UNITS/ML SUB-Q (08:54)
[2025-02-16] MEDS: INSULIN ASPART (*BKC) 100 UNITS/ML SUB-Q ×2 (08:56→12:06)
[2025-02-16 09:40] LABS: Alveolar/Arterial O2 Gradient 69.1 mmHg; Fractional Inspired Oxygen 28 %; HCO3 ABG 30.3 mEq/l (22.0-26.0); Oxygen Content ABG 15.0 %vol (16.0-22.0); Oxygen Saturation ABG 92.5 % (95.0-100.0); PCO2 ABG 53.8 mmHg (35.0-45.0); PO2 ABG 67.1 mmHg (80.0-100.0); PO2 FiO2 Ratio Arterial Blood 2.40 %
[2025-02-16 09:41] LABS: Liters per Minute 2.0 LPM; Site Drawn LEFT BRACHIAL
--- NOTE | 2025-02-16 10:31 | P.PNIM_ITS ---
Progress Note: A&P Assessment and Plan (1) Sepsis: Qualifiers: Sepsis acute organ dysfunction status: without acute organ dysfunction Sepsis type: sepsis due to unspecified organism Qualified Code(s): A41.9 - S epsis, unspecified organism Code(s): A41.9 - Sepsis, unspecified organism Status: Acute Assessment and Plan: Met SIRS criteria on admission: HR >90, RR >20. +Hypoxia, -HypoTN. Blood cultures obtained on 02/06, follow. On admission chest x-ray shows CHF with superimposed probable pneumonia On admission CTA chest/abdomen/pelvis negative for PE but patient had moderate size bilateral pleural effusion, moderate size consolidation in the lower lobes and right middle lobe Lactic acid was normal Ceftriaxone switched to cefepime as patient becomes more hypoxic Vanc and Flagyl was added 02/08 IV antibiotics were deescalated was patient becomes Hemodynamically stable Last ceftriaxone dose was 02/12 Blood culture no growth to date (2) Acute on chronic respiratory failure with hypoxia and hypercapnia: Code(s): J96.21 - Acute and chronic respiratory failure with hypoxia; J96.22 - Acute and chronic respiratory failure with hypercapnia Status: Acute Assessment and Plan: Etiology of Respiratory Failure: Possible fluid overload from CHF vs pneumonia Imaging concerning for significant volume overload as evidenced by moderate pleural effusions, moderate nonspecific anasarca, moderate sized pericardial effusion. CTA negative for PE --Consults: pulmonary, cardiology, renal LABS WBC normal since admission 02/06 ABG: PH 7.305/CO2 64, HC03 31.1/O2 saturation 92.7% on 3L 02/08 ABG: Ph 7.297/53.2/25.4/O2 sat 901. on 6L 02/09 ABG: pH 7.246/ 55/23.4/ O2 sat 87.6 on 10L Acute respiratory failure air likely multifactorial including suspected CHF, multifocal pneumonia. Patient is an everyday smoker (1PPD), but no evidence of COPD on imaging. Initially started on Prednisone, now stopped. No wheezing --Pulmonary consulted, appreciate recommendations --nebulizers p.r.n --Off diuretics for GERONIMO --Antibiotics for UTI. --No evidence of pneumonia -- Tried BiPAP for an hour and took it off. Tried AVAPS 02/08 but didn't tolerate --Will need a walking O2 prior to discharge if tolerates (has prosthetics) --May need another thoracentesis DNR/DNI (3) Pneumonia: Qualifiers: Laterality: bilateral Lung location: unspecified part of lung Pneumonia type: due to unspecified organism Qualified Code(s): J18.9 - Pneumonia, unspecified organism Code(s): J18.9 - Pneumonia, unspecified organism Status: Acute Assessment and Plan: 02/09 CT Concerning for pneumonia but WBC has been normal. No fevers Started on Cap tx: Ceftriaxone and azithromycin IV. Changed to Cefepime, Vanc, Flagyl 02/08 since increased oxygen requirements. Stopped Vancomycin 02/09. Stopped cefepime and resumed Ceftriaxone primarily for UTI since no evidence of infection on pleural fluid -Appreciate pulmonary recommendations. --MRSA PCR negative --sputum culture - Viral PCR negative on 02/06 - Supportive care: Mucinex yomaira, Tessalon Perles p.r.n., DuoNebs p.r.n., Tylenol p.r.n. (4) Congestive heart failure: Qualifiers: Heart failure type: unspecified Heart failure chronicity: acute Qualified Code(s): I50.9 - Heart failure, unspecified Code(s): I50.9 - Heart failure, unspecified Status: Suspected Assessment and Plan: Suspected acute CHF. No previous echo available. Decreased LVEF 45-50% and inferior/posterior hypokinesia. Also noted to have a moderate pericardial effusion on CT 02/07 TTE 1. Complete two-dimensional, color flow and Doppler transthoracic echocardiogram is performed. 2. Concentric left ventricular hypertrophy with mild systolic dysfunction, inferior/posterior hypokinesia. 3. Grade 2 diastolic noncompliance. 4. Mild mitral regurgitation. 5. Mildly enlarged ascending aorta, 4.2 cm. 6. Trivial posterior pericardial effusion. see CXR and CT impressions above, concern for volume overload. No peripheral edema to bilateral thighs. BNP [id number] 02/06, [id number] on 02/08 PLAN - started on Lasix 40 mg IV b.i.d, on hold for worsening GERONIMO -No QUANG/ARB with GERONIMO - monitor I&Os and daily weights - trend renal function -Cardiology consult for new heart failure, appreciate recommendations. Has a moderate pericardial effusion and limited medication options with GERONIMO Recommending lexiscan myoview outpatient to rule out CAD (5) Pleural effusion: Code(s): J90 - Pleural effusion, not elsewhere classified Status: Acute Assessment and Plan: moderate-sized bilateral pleural effusions noted on CTA, suspected CHF, see above currently requiring supplemental O2, wean as tolerated, maintain O2 sat greater than 92% --s/p Right & Left Thoracentesis. 1100 out on the right 02/08, 1100 on the left 02/09 --Unable to diuresis with GERONIMO. If continued improvement, could restart --Weaned to 2L<4L, follow oxygen requirements --Home oxygen eval (6) GERONIMO (acute kidney injury): Code(s): N17.9 - Acute kidney failure, unspecified Status: Acute Assessment and Plan: Baseline creatinine 0.7-0.9 from 2019 to 2022, no recent lab work available for comparison. Patient reports he has not been to the doctor in a couple of years Worsening despite diuresis & treatment of UTI. Recently received CT contrast. 4+ protein on initial UA Urine studies UA cloudy 3+ protein, trace LE. Protein/creat ratio 3.69, no eosinophils FeNa 1.2% indeterminate, FeUrea 27% suggests pre-renal Creatinine 1.52, BUN 34, GFR 46 upon admission on 02/06. CK 70 Bladder scan was 220 02/08 Total protein 6.8 Albumin 3.3 02/06 CTA showed concentric thickening of the cintron of the moderately distended bladder, differential including incomplete bladder wall distension, cystitis, or sequela from bladder outlet obstruction. UA concerning for UTI. Concern for CHF/volume overload as evidenced by a pleural effusions, moderate size pericardial effusion, and moderate nonspecific anasarca on CT. Started diuresis but now on hold for worsening GERONIMO 02/08 renal US--No Hydronephrosis PLAN Discussed with Nephrology, Dr Coker, and he okayed Lasix 40mg daily Cr 1.65 today improving from 1.79 (7) UTI (urinary tract infection): Qualifiers: Hematuria presence: with hematuria Urinary tract infection type: acute cystitis Qualified Code(s): N30.01 - Acute cystitis with hematuria Code(s): N39.0 - Urinary tract infection, site not specified Status: Acute Assessment and Plan: UA: Cloudy, 4+ protein, trace glucose, trace ketones, 2+ blood, 1+ leuk history is, 11-28 RBC, 51-100 WBC, occasional epithelial cells, no bacteria - UC pending, Growing GNB. Growing serratia marcescens - previous micro reviewed, grew Klebsiella in 2020 that was resistant to ampicillin only - started on Ceftriaxone on 02/06. Completed 5 days of Ceftriaxone and Cefepime (8) Diabetes: Qualifiers: Diabetes mellitus type: type 2 Diabetes mellitus superintendent terminal insulin use: with half-way use Diabetes mellitus complication status: without complication Qualified Code(s): E11.9 - Type 2 diabetes mellitus without complications; Z79.4 - nursing home (current) use of insulin Code(s): E11.9 - Type 2 diabetes mellitus without complications Status: Chronic Assessment and Plan: Previously complicated by diabetic foot wounds, s/p bilateral BKA A1C 02/06/25 9.0 Continue lantus, SSI, POCT and hypoglycemia protocol --Diabetes ed consult prior to discharge. Will need a meter. Can consider oral meds for discharge (9) Paroxysmal atrial fibrillation: Code(s): I48.0 - Paroxysmal atrial fibrillation Status: Chronic Assessment and Plan: History of paroxysmal AFib, currently stable. - initial EKG showed sinus tachycardia, NSR - telemetry monitoring --Continue Eliquis (10) HTN (hypertension): Qualifiers: Hypertension type: primary hypertension Qualified Code(s): I10 - Essential (primary) hypertension Code(s): I10 - Essential (primary) hypertension Status: Chronic Assessment and Plan: Reports he is not on any home medications, BP goal <140/80 Continue amlodipine with prn hydralazine monitor (11) Popliteal DVT (deep venous thrombosis): Code(s): I82.439 - Acute embolism and thrombosis of unspecified popliteal vein Status: Acute Assessment and Plan: Doppler ultrasound 02/08/2025 shows deep venous thrombosis at the bilateral popliteal Will initiate Eliquis 5 mg twice a day for 3-6 months Plan Diet: Diabetic GI Prophylaxis: N/a DVT Prophylaxis: patient will be started on Eliquis IV fluids: 1L bolus, no further fluids due to concern for CHF Lines/Tubes: Peripheral IV Code Status: DNR/DNI Disposition: Pending insurance auth Subjective Date/time seen: 02/16/25 10:31 Interval history: Comfortable at bedside and awaiting insurance auth Review of Systems Review of Systems: All systems reviewed & are unremarkable except as noted in HPI and below Exam Narrative: APPEARANCE: No acute distress, cachectic. EYES: EOMI HEENT: Normocephalic, atraumatic, OMM RESPIRATORY: On supplemental oxygen, no wheezing or crackles. CARDIOVASCULAR: RRR, S1 and S2 without murmurs rubs or gallops. ABDOMINAL: Soft, nontender, nondistended, no rebound or guarding MUSCULOSKELETAl: Bilateral BKA, ambulate by using prostatic leg NEURO: Awake and alert. Following commands, speech normal, no focal deficits SKIN:: Warm, dry. No rashes lesions or abrasions PSYCHIATRIC: Normal affect/mood Const: General: comfortable and no acute distress Other: , male, older than stated age, acute on chronic ill appearance. Disheveled. HENMT: Face/Nose/Sinus: Normal nares present Mouth: Yes dry mucous membranes Eyes: General: appearance normal, both eyes and all related structures Sclera: sclerae normal Pupils: Equal, round and reactive pupils present EOM: EOMs intact bilaterally Resp: Effort & Inspection: normal respiratory effort Other: absent on the right starting mid lung to base, decreased from mid lung to base on the left. Faint crackles noted to the left lung base. No wheezing. Nasal cannula place. Cardio: Rate: regular rate Rhythm: regular rhythm Other: S1-S2 present without murmur, rub, ectopy GI: Other: Abdomen soft, nondistended, nontender. Normoactive bowel sounds in all quadrants. Skin: General skin exam: normal color and no rashes or lesions noted Wounds: no wounds Neuro: Cranial nerves: Yes Equal, round and reactive pupils present Speech: normal speech Motor exam (neuro): 5/5 motor strength present throughout Sensory Exam: normal sensation Other: Generalized weakness, A&O x3 Extrem: Other: bilateral BKA. no edema noted to bilateral thighs. Psych: Mental Status: mental status grossly normal Affect: Sad affect present Other: Fair to poor insight and judgment. Objective Data Vital Signs Vital Signs: Vital Signs - 24 hr 02/15/25 10:45 02/15/25 10:50 02/15/25 10:55 Temperature Pulse Rate 99 96 Respiratory Rate Blood Pressure Pulse Oximetry 86 L 88 L 91 Oxygen Delivery Room Air Nasal Cannula Nasal Cannula Oxygen Flow Rate 1 2 Fraction of Inspired Oxygen 02/15/25 12:00 02/15/25 14:00 02/15/25 20:08 Temperature 98.8 F 98.4 F Pulse Rate 96 96 98 Respiratory Rate 19 20 Blood Pressure 152/71 H 177/91 H Pulse Oximetry 95 96 Oxygen Delivery Oxygen Flow Rate Fraction of Inspired Oxygen 02/15/25 20:30 02/16/25 08:13 02/16/25 08:52 Temperature Pulse Rate 98 Respiratory Rate 20 Blood Pressure Pulse Oximetry 95 93 98 Oxygen Delivery Nasal Cannula Nasal Cannula Nasal Cannula Oxygen Flow Rate 3 2 3 Fraction of Inspired Oxygen 36 Intake/Output Intake/Output: Intake & Output 02/13/25 02/14/25 02/15/25 02/16/25 23:59 23:59 23:59 23:59 Intake Total 1305.8 1250.5 1524 300 Balance 1305.8 1250.5 1524 300 Meds/Results Medications: Active Medications Generic Name Dose Route Start Last Admin Trade Name Freq PRN Reason Stop Dose Admin Acetaminophen 650 mg 02/06/25 15:03 Acetaminophen 325 Mg Tablet PO Q4H PRN Mild Pain (1-3) or Fever Amlodipine Besylate 5 mg 02/12/25 09:00 02/16/25 08:52 Amlodipine Besylate 5 Mg Tablet PO 5 mg DAILY YOMAIRA Administration Apixaban 5 mg 02/13/25 21:00 02/16/25 08:52 Apixaban 5 Mg Tablet PO 5 mg Q12HR YOMAIRA Administration Benzonatate 100 mg 02/06/25 16:24 02/15/25 08:32 Benzonatate 100 Mg Capsule PO 100 mg TID PRN Administration Cough Dextrose 12.5 gm 02/06/25 15:03 Dextrose 50% 25 Gm/50 Ml Syringe IV PUSH PRN PRN Hypoglycemia Protocol Furosemide 40 mg 02/14/25 13:05 02/16/25 08:52 Furosemide 40 Mg Tablet PO 40 mg DAILY YOMAIRA Administration Glucagon 1 mg 02/06/25 15:03 02/11/25 21:37 Glucagon For Inj 1 Mg Vial IM 1 mg PRN PRN Administration Hypoglycemia Protocol Glucose 15 gm 02/06/25 15:03 Glucose Oral Gel 15 Gm Of Glucse In 37.5 Gm Tube PO PRN PRN Hypoglycemia Protocol Guaifenesin 1,200 mg 02/08/25 21:00 02/10/25 11:48 Guaifenesin 12 Hr 600 Mg Tabcr PO Not Given On Hold: 02/10/25 09:50 Q12HR YOMAIRA Hydralazine HCl 25 mg 02/07/25 17:12 Hydralazine Hcl 25 Mg Tablet PO Q8H PRN Hypertensive Emergency Dextrose 1,000 mls @ 100 mls/hr 02/06/25 15:03 Dextrose 5% 1,000 Ml IVPB PRN PRN Hypoglycemia Protocol Insulin Aspart 2 - 5 units 02/06/25 17:00 02/16/25 09:38 Insulin Aspart (*Bkc) 100 Units/Ml SUB-Q Not Given TIDWM YOMAIRA Protocol Insulin Aspart 3 units 02/11/25 08:00 02/16/25 08:56 Insulin Aspart (*Bkc) 100 Units/Ml SUB-Q 3 units TIDWM YOMAIRA Administration Insulin Glargine 5 units 02/11/25 09:00 02/16/25 08:54 Insulin Glargine (*Bkc) 100 Units/Ml SUB-Q 5 units DAILY YOMAIRA Administration Ondansetron HCl 4 mg 02/06/25 15:03 Ondansetron Inj 4 Mg/2 Ml Vial IV PUSH Q4H PRN Nausea Umeclidinium/Vilanterol 1 puff 02/10/25 10:35 02/16/25 08:13 Umeclidinium/Vilanterol 62.5-25 Mcg Ellipta INHALATION 1 puff DAILYRT YOMAIRA Administration Radiology Results: ITS Impressions Head CT 02/06/25 12:24 IMPRESSION: 1. No acute intracranial findings. Chest/Abdomen/Pelvis CTA 02/06/25 13:40 IMPRESSION: 1. No pulmonary embolism identified. 2. Moderate-sized bilateral pleural effusions. 3. Moderate-sized consolidations in the lower lobes and right middle lobe. Recommend follow-up to resolution. 4. Small to moderate size ground glass opacity scattered throughout both lungs m ost prominent in the upper lobes. Recommend follow-up to resolution. 5. Moderate-sized pericardial effusion. 6. Cholelithiasis. 7. Small amount of fluid and fat stranding scattered throughout the abdomen and pelvis for prominent in the right abdomen. 8. Concentric thickening of the cintron of the moderately distended bladder. Differential includes incomplete bladder wall distention, cystitis or sequelae from bladder outlet obstruction. 9. Moderate nonspecific anasarca. 10. Small bilateral fat-containing inguinal hernias, larger on the right which also contains fluid Renal Ultrasound 02/08/25 14:41 IMPRESSION: 1. No hydronephrosis. Venous Doppler Study 02/08/25 17:10 IMPRESSION: 1. Deep venous thrombosis at the bilateral popliteal veins. Findings were discussed with Polo Gee, the nurse caring for the patient, at 5:18 PM. Thoracentesis Ultrasound 02/09/25 14:20 IMPRESSION: 1. Successful ultrasound-guided thoracentesis yielding 1100 mL of straw-colored fluid. Chest X-Ray 02/14/25 12:59 IMPRESSION: 1. No significant change. 2. Pleural effusions with bibasilar atelectasis and/or airspace disease. 3. Interstitial pulmonary edema and/or pneumonitis. Labs Labs: Laboratory Results - last 24 hr 02/15/25 02/15/25 02/15/25 11:49 17:10 20:06 WBC RBC Hgb Hct MCV MCH MCHC RDW Plt Count MPV Immature Gran % (Auto) Neut % (Auto) Lymph % (Auto) [place] % (Auto) Eos % (Auto) Baso % (Auto) Lymph # (Auto) [place] # (Auto) Eos # (Auto) Baso # (Auto) Abs Immat Gran (auto) Absolute Neuts (auto) Absolute Nucleated RBC Nucleated RBC % % Immature Plt Fraction Puncture Site ABG pH ABG pCO2 ABG pO2 ABG PO2/FiO2 Ratio ABG HCO3 ABG O2 Saturation ABG O2 Content ABG Base Excess A-a Gradient Oxyhemoglobin Total Hemoglobin O2 Delivery Device O2 Liters/Min FiO2 Sodium Potassium Chloride Carbon Dioxide Anion Gap BUN Creatinine Estim Creat Clear Calc Estimated GFR Glucose POC Capillary Glucose 204 H 214 H 335 H Calcium Phosphorus Albumin 02/16/25 02/16/25 02/16/25 04:45 08:12 09:34 WBC 5.9 RBC 3.85 L Hgb 10.4 L Hct 34.4 L MCV 89.4 MCH 27.0 MCHC 30.2 L RDW 14.7 H Plt Count 123 L MPV 11.1 H Immature Gran % (Auto) 0.3 Neut % (Auto) 75.8 H Lymph % (Auto) 12.9 L [place] % (Auto) 9.2 H Eos % (Auto) 1.5 Baso % (Auto) 0.3 Lymph # (Auto) 0.76 L [place] # (Auto) 0.5 Eos # (Auto) 0.1 Baso # (Auto) 0.0 Abs Immat Gran (auto) 0.02 Absolute Neuts (auto) 4.5 Absolute Nucleated RBC 0.000 Nucleated RBC % 0.0 % Immature Plt Fraction 7.2 Puncture Site Left brachial ABG pH 7.368 ABG pCO2 53.8 H ABG pO2 67.1 L ABG PO2/FiO2 Ratio 2.40 ABG HCO3 30.3 H ABG O2 Saturation 92.5 L ABG O2 Content 15.0 L ABG Base Excess 3.9 A-a Gradient 69.1 Oxyhemoglobin 91.8 Total Hemoglobin 11.6 L O2 Delivery Device Nasal cannula O2 Liters/Min 2.0 FiO2 28 Sodium 138 Potassium 4.7 Chloride 101 Carbon Dioxide 33 H Anion Gap 4 BUN 47 H Creatinine 1.65 H Estim Creat Clear Calc 44 Estimated GFR 42 L Glucose 209 H POC Capillary Glucose 181 H Calcium 8.5 Phosphorus 2.9 Albumin 3.1 L Quality VTE Prophylaxis VTE prophylaxis: pharmacologic ordered
--- NOTE | 2025-02-16 12:12 | PM.PNNEP ---
Progress Note: A&P Assessment and Plan (1) Acute kidney injury: Code(s): N17.9 - Acute kidney failure, unspecified Status: Acute Assessment and Plan: slow improvement as noted since hospitalization (admission creatinine 1.52mg/dl) significant rise noted on 02/08 (1.61 --> 2.57mg/dL) only previous labs to compare are from October 2022 - creatinine normal at that time (0.80mg/dL) unclear if a component of chronic renal insufficiency/CKD at baseline...but risk factors noted: suboptimal diabetes control complicated by PVD + diabetic retinopathy hypertension CHF smoker history of polysubstance abuse hepatitis C suspect multifactorial etiology: fluctuating hemodynamics infection/sepsis (UTI +/- pneumonia) CHF exacerbation IV diuretic therapy contrast exposure (CTA on 02/06) - suspect this is reason for rise in creatinine on 02/08 hypoxia other (?) evaluation to date noted: renal ultrasound w/o obstruction urine electrolytes (by FeUrea) prerenal urine eosinophils negative nephrotic range proteinuria CPK normal initial UA suggest infection no critical electrolytes but difficult to assess if adequate urine output follow-up on serologies s/p bumex 1.5gm IV x 1 on 02/12 and 02/13 on oral diuretic therapy (lasix 40mg qday) follow CXR results possible new baseline creatinine (?) follow trend of repeat labs and UOP (2) Acute hypoxic respiratory failure: Code(s): J96.01 - Acute respiratory failure with hypoxia Status: Acute Assessment and Plan: clinical improvement noted complicated by hypercapnia (as noted by ABGs) does not wear supplemental oxygen at baseline due to several issues: bilateral pleural effusions CHF exacerbation volume overload pneumonia (?) underlying reactive airway disease/COPD (?) -- although no evidence by imaging pericardial effusion complicated by extensive smoking history s/p thoracentesis x 2 (left on 02/09 and right on 02/08) pleural fluid analysis without evidence of infection/transudative Pulmonary following with recommendations noted unable to tolerated AVAPS continue nebulizer treatments/inhalers wean O2 as tolerated continue therapy as outlined (3) Congestive heart failure: Qualifiers: Heart failure type: unspecified Heart failure chronicity: acute Qualified Code(s): I50.9 - Heart failure, unspecified Code(s): I50.9 - Heart failure, unspecified Status: Suspected Assessment and Plan: suspected on admission Echo (on 02/07) noted: left ventricular systolic function is mildly reduced, estimated at 45 - 50% (inferior/posterior hypokinesia) left ventricular diastolic function is grade II diastolic dysfunction mild aortic valve sclerosis. mild mitral regurgitation mildly enlarged ascending aorta, 4.2cm rivial posterior pericardial effusion elevated BNP noted imaging noted on admission noted: CXR: CHF. Superimposed probable pneumonia CTA C/A/P: no pulmonary embolism identified; moderate-sized bilateral pleural effusions; moderate-sized consolidations in the lower lobes and right middle lobe; small to moderate size ground glass opacity scattered throughout both lungs most prominent in the upper lobes; moderate-sized pericardial effusion. since renal function better, dosed with IV diuretics (IV bumex on 02/12 and 02/13) (4) Pleural effusion: Code(s): J90 - Pleural effusion, not elsewhere classified Status: Acute Assessment and Plan: as noted by admission imaging s/p left (on 02/09) and right (on 02/08) thoracentesis 1100cc removed on right 1100cc removed on left pleural fluid analysis noted (see #2) re-attempt at diuresis since renal function improved - IV bumex yesterday alternatively, consider repeat thoracentesis follow repeat imaging (5) Pneumonia: Qualifiers: Laterality: bilateral Lung location: unspecified part of lung Pneumonia type: due to unspecified organism Qualified Code(s): J18.9 - Pneumonia, unspecified organism Code(s): J18.9 - Pneumonia, unspecified organism Status: Acute Assessment and Plan: admission CXR and CT chest suggestive however, no fevers and normal WBC; but noted hypoxia viral testing for influenza/RSV/COVID negative extended respiratory viral pathogen panel negative as well follow culture data furthermore, pleural fluid analysis argues against infection on antibiotics (6) UTI (urinary tract infection): Qualifiers: Hematuria presence: with hematuria Urinary tract infection type: acute cystitis Qualified Code(s): N30.01 - Acute cystitis with hematuria Code(s): N39.0 - Urinary tract infection, site not specified Status: Acute Assessment and Plan: admission UA suggestive urine culture with Serratia marcescens on antibiotics (7) Paroxysmal atrial fibrillation: Code(s): I48.0 - Paroxysmal atrial fibrillation Status: Chronic Assessment and Plan: known history rate controlled on anticoagulation (8) Anemia: Code(s): D64.9 - Anemia, unspecified Status: Acute Assessment and Plan: presumably secondary to GERONIMO and acute illness no need for YOHANA at this time follow trend of H/H (9) HTN (hypertension): Qualifiers: Hypertension type: primary hypertension Qualified Code(s): I10 - Essential (primary) hypertension Code(s): I10 - Essential (primary) hypertension Status: Chronic Assessment and Plan: elevated on admission no outpatient medications started on medications during this hospitalization follow trend of hemodynamics (10) Diabetes: Qualifiers: Diabetes mellitus type: type 2 Diabetes mellitus fpc insulin use: with medical terminologist use Diabetes mellitus complication status: without complication Qualified Code(s): E11.9 - Type 2 diabetes mellitus without complications; Z79.4 - superintendent container terminal (current) use of insulin Code(s): E11.9 - Type 2 diabetes mellitus without complications Status: Chronic Assessment and Plan: suboptimal control at baseline was not taking any outpatient medications follow accu-cheks glycemic control per hospitalist Not opposed to discharge from renal perspective if otherwise medically stable... Will continue to follow from a distance. Time Spent With Patient Time: 56 minutes Subjective Date/time seen: 02/16/25 12:12 Interval history: Follow-up for acute kidney injury/acute renal failure (on chronic kidney disease?). No apparent distress noted at the time of my visit; worked with PT/OT earlier today and he is more interested in SNF on discharge; tolerating oral diuretic therapy with relative stabiliy in renal function/creatinine; breathing/respiratory status seems stable when seen. Exam Narrative: General: elderly male in NAD Heart: normal S1 and S2; no rub Lungs: coarse with decreased breath sounds at bases Abdomen: soft, nontender, nondistended, positive bowel sounds Extremities: no cyanosis or clubbing; no edema; s/p bilateral BKAs Skin: no rash or nodules Objective Data Vital Signs Vital Signs: Vital Signs Temp Pulse Resp BP Pulse Ox O2 Del Method O2 Flow Rate 02/16/25 12:00 98.1 F 94 16 149/84 H 94 02/16/25 08:52 98 20 98 Nasal Cannula 3 02/16/25 08:45 97.3 F L 89 14 172/86 H 96 02/16/25 08:13 93 Nasal Cannula 2 02/15/25 20:30 95 Nasal Cannula 3 02/15/25 20:08 98.4 F 98 20 177/91 H 96 Intake/Output Intake/Output: Intake & Output 02/13/25 02/14/25 02/15/25 02/16/25 23:59 23:59 23:59 23:59 Intake Total 1305.8 1250.5 1524 780 Balance 1305.8 1250.5 1524 780 Meds/Results Medications: Active Medications Generic Name Dose Route Start Last Admin Trade Name Freq PRN Reason Stop Dose Admin Acetaminophen 650 mg 02/06/25 15:03 Acetaminophen 325 Mg Tablet PO Q4H PRN Mild Pain (1-3) or Fever Amlodipine Besylate 5 mg 02/12/25 09:00 02/16/25 08:52 Amlodipine Besylate 5 Mg Tablet PO 5 mg DAILY OMI Administration Apixaban 5 mg 02/13/25 21:00 02/16/25 08:52 Apixaban 5 Mg Tablet PO 5 mg Q12HR OMI Administration Benzonatate 100 mg 02/06/25 16:24 02/15/25 08:32 Benzonatate 100 Mg Capsule PO 100 mg TID PRN Administration Cough Dextrose 12.5 gm 02/06/25 15:03 Dextrose 50% 25 Gm/50 Ml Syringe IV PUSH PRN PRN Hypoglycemia Protocol Furosemide 40 mg 02/14/25 13:05 02/16/25 08:52 Furosemide 40 Mg Tablet PO 40 mg DAILY OMI Administration Glucagon 1 mg 02/06/25 15:03 02/11/25 21:37 Glucagon For Inj 1 Mg Vial IM 1 mg PRN PRN Administration Hypoglycemia Protocol Glucose 15 gm 02/06/25 15:03 Glucose Oral Gel 15 Gm Of Glucse In 37.5 Gm Tube PO PRN PRN Hypoglycemia Protocol Guaifenesin 1,200 mg 02/08/25 21:00 02/10/25 11:48 Guaifenesin 12 Hr 600 Mg Tabcr PO Not Given On Hold: 02/10/25 09:50 Q12HR OMI Hydralazine HCl 25 mg 02/07/25 17:12 Hydralazine Hcl 25 Mg Tablet PO Q8H PRN Hypertensive Emergency Dextrose 1,000 mls @ 100 mls/hr 02/06/25 15:03 Dextrose 5% 1,000 Ml IVPB PRN PRN Hypoglycemia Protocol Insulin Aspart 2 - 5 units 02/06/25 17:00 02/16/25 12:09 Insulin Aspart (*Bkc) 100 Units/Ml SUB-Q Not Given TIDWM OMI Protocol Insulin Aspart 3 units 02/11/25 08:00 02/16/25 12:06 Insulin Aspart (*Bkc) 100 Units/Ml SUB-Q 3 units TIDWM OMI Administration Insulin Glargine 5 units 02/11/25 09:00 02/16/25 08:54 Insulin Glargine (*Bkc) 100 Units/Ml SUB-Q 5 units DAILY OMI Administration Ondansetron HCl 4 mg 02/06/25 15:03 Ondansetron Inj 4 Mg/2 Ml Vial IV PUSH Q4H PRN Nausea Umeclidinium/Vilanterol 1 puff 02/10/25 10:35 02/16/25 08:13 Umeclidinium/Vilanterol 62.5-25 Mcg Ellipta INHALATION 1 puff DAILYRT OMI Administration Radiology Results: ITS Impressions Head CT 02/06/25 12:24 IMPRESSION: 1. No acute intracranial findings. Chest/Abdomen/Pelvis CTA 02/06/25 13:40 IMPRESSION: 1. No pulmonary embolism identified. 2. Moderate-sized bilateral pleural effusions. 3. Moderate-sized consolidations in the lower lobes and right middle lobe. Recommend follow-up to resolution. 4. Small to moderate size ground glass opacity scattered throughout both lungs most prominent in the upper lobes. Recommend follow-up to resolution. 5. Moderate-sized pericardial effusion. 6. Cholelithiasis. 7. Small amount of fluid and fat stranding scattered throughout the abdomen and pelvis for prominent in the right abdomen. 8. Concentric thickening of the cintron of the moderately distended bladder. Differential includes incomplete bladder wall distention, cystitis or sequelae from bladder outlet obstruction. 9. Moderate nonspecific anasarca. 10. Small bilateral fat-containing inguinal hernias, larger on the right which also contains fluid Renal Ultrasound 02/08/25 14:41 IMPRESSION: 1. No hydronephrosis. Venous Doppler Study 02/08/25 17:10 IMPRESSION: 1. Deep venous thrombosis at the bilateral popliteal veins. Findings were discussed with Polo Gee, the nurse caring for the patient, at 5:18 PM. Thoracentesis Ultrasound 02/09/25 14:20 IMPRESSION: 1. Successful ultrasound-guided thoracentesis yielding 1100 mL of straw-colored fluid. Chest X-Ray 02/14/25 12:59 IMPRESSION: 1. No significant change. 2. Pleural effusions with bibasilar atelectasis and/or airspace disease. 3. Interstitial pulmonary edema and/or pneumonitis. Labs Labs: Laboratory Tests 02/16/25 04:45 02/16/25 04:45 Calcium 8.5 Phosphorus 2.9 Albumin 3.1 L Microbiology 02/11/25 05:56 Urine Clean Catch Specimen Source - Final 02/11/25 05:56 Urine Clean Catch Streptococcus pneumoniae Ag Screen - Final 02/11/25 05:56 Urine Clean Catch Sterile Body Fluid Culture - Final 02/11/25 05:56 Urine Clean Catch Organism Identification - Final 02/11/25 05:56 Urine Clean Catch Microbiology Comment - Final 02/11/25 05:56 Urine - Urine Legionella pneumophila Serogrp 1 Ag - Preliminary
--- NOTE | 2025-02-16 12:12 | P.PNNP_ITS ---
Progress Note: A&P Assessment and Plan (1) Acute kidney injury: Code(s): N17.9 - Acute kidney failure, unspecified Status: Acute Assessment and Plan: * slow improvement * as noted since hospitalization (admission creatinine 1.52mg/dl) * significant rise noted on 02/08 (1.61 --> 2.57mg/dL) * only previous labs to compare are from October 2022 - creatinine normal at that time (0.80mg/dL) * unclear if a component of chronic renal insufficiency/CKD at baseline...but risk factors noted: * suboptimal diabetes control complicated by PVD + diabetic retinopathy * hypertension * CHF * smoker * history of polysubstance abuse * hepatitis C * suspect multifactorial etiology: * fluctuating hemodynamics * infection/sepsis (UTI +/- pneumonia) * CHF exacerbation * IV diuretic therapy * contrast exposure (CTA on 02/06) - suspect this is reason for rise in creatinine on 02/08 * hypoxia * other (?) * evaluation to date noted: * renal ultrasound w/o obstruction * urine electrolytes (by FeUrea) prerenal * urine eosinophils negative * nephrotic range proteinuria * CPK normal * initial UA suggest infection * no critical electrolytes but difficult to assess if adequate urine output * follow-up on serologies * s/p bumex 1.5gm IV x 1 on 02/12 and 02/13 * on oral diuretic therapy (lasix 40mg qday) * follow CXR results * possible new baseline creatinine (?) * follow trend of repeat labs and UOP (2) Acute hypoxic respiratory failure: Code(s): J96.01 - Acute respiratory failure with hypoxia Status: Acute Assessment and Plan: * clinical improvement noted * complicated by hypercapnia (as noted by ABGs) * does not wear supplemental oxygen at baseline * due to several issues: * bilateral pleural effusions * CHF exacerbation * volume overload * pneumonia (?) * underlying reactive airway disease/COPD (?) -- although no evidence by imaging * pericardial effusion * complicated by extensive smoking history * s/p thoracentesis x 2 (left on 02/09 and right on 02/08) * pleural fluid analysis without evidence of infection/transudative * Pulmonary following with recommendations noted * unable to tolerated AVAPS * continue nebulizer treatments/inhalers * wean O2 as tolerated * continue therapy as outlined (3) Congestive heart failure: Qualifiers: Heart failure type: unspecified Heart failure chronicity: acute Q ualified Code(s): I50.9 - Heart failure, unspecified Code(s): I50.9 - Heart failure, unspecified Status: Suspected Assessment and Plan: * suspected on admission * Echo (on 02/07) noted: * left ventricular systolic function is mildly reduced, estimated at 45 - 50% (inferior/posterior hypokinesia) * left ventricular diastolic function is grade II diastolic dysfunction * mild aortic valve sclerosis. * mild mitral regurgitation * mildly enlarged ascending aorta, 4.2cm * rivial posterior pericardial effusion * elevated BNP noted * imaging noted on admission noted: * CXR: CHF. Superimposed probable pneumonia * CTA C/A/P: no pulmonary embolism identified; moderate-sized bilateral pleural effusions; moderate-sized consolidations in the lower lobes and right middle lobe; small to moderate size ground glass opacity scattered throughout both lungs most prominent in the upper lobes; moderate-sized pericardial effusion. * since renal function better, dosed with IV diuretics (IV bumex on 02/12 and 02/13) (4) Pleural effusion: Code(s): J90 - Pleural effusion, not elsewhere classified Status: Acute Assessment and Plan: * as noted by admission imaging * s/p left (on 02/09) and right (on 02/08) thoracentesis * 1100cc removed on right * 1100cc removed on left * pleural fluid analysis noted (see #2) * re-attempt at diuresis since renal function improved - IV bumex yesterday * alternatively, consider repeat thoracentesis * follow repeat imaging (5) Pneumonia: Qualifiers: Laterality: bilateral Lung location: unspecified part of lung P neumonia type: due to unspecified organism Qualified Code(s): J18.9 - Pneumonia, unspecified organism Code(s): J18.9 - Pneumonia, unspecified organism Status: Acute Assessment and Plan: * admission CXR and CT chest suggestive * however, no fevers and normal WBC; but noted hypoxia * viral testing for influenza/RSV/COVID negative * extended respiratory viral pathogen panel negative as well * follow culture data * furthermore, pleural fluid analysis argues against infection * on antibiotics (6) UTI (urinary tract infection): Qualifiers: Hematuria presence: with hematuria Urinary tract infection type: acute cystitis Qualified Code(s): N30.01 - Acute cystitis with hematuria Code(s): N39.0 - Urinary tract infection, site not specified Status: Acute Assessment and Plan: * admission UA suggestive * urine culture with Serratia marcescens * on antibiotics (7) Paroxysmal atrial fibrillation: Code(s): I48.0 - Paroxysmal atrial fibrillation Status: Chronic Assessment and Plan: * known history * rate controlled * on anticoagulation (8) Anemia: Code(s): D64.9 - Anemia, unspecified Status: Acute Assessment and Plan: * presumably secondary to GERONIMO and acute illness * no need for YOHANA at this time * follow trend of H/H (9) HTN (hypertension): Qualifiers: Hypertension type: primary hypertension Qualified Code(s): I10 - Essential (primary) hypertension Code(s): I10 - Essential (primary) hypertension Status: Chronic Assessment and Plan: * elevated on admission * no outpatient medications * started on medications during this hospitalization * follow trend of hemodynamics (10) Diabetes: Qualifiers: Diabetes mellitus type: type 2 Diabetes mellitus snf insulin use: with termination clerk use Diabetes mellitus complication status: without complication Qualified Code(s): E11.9 - Type 2 diabetes mellitus without complications; Z79.4 - long-term (current) use of insulin Code(s): E11.9 - Type 2 diabetes mellitus without complications Status: Chronic Assessment and Plan: * suboptimal control at baseline * was not taking any outpatient medications * follow accu-cheks * glycemic control per hospitalist Not opposed to discharge from renal perspective if otherwise medically stable... Will continue to follow from a distance. L Time Spent With Patient Time: 56 minutes Subjective Date/time seen: 02/16/25 12:12 Interval history: Follow-up for acute kidney injury/acute renal failure (on chronic kidney disease?). No apparent distress noted at the time of my visit; worked with PT/OT earlier today and he is more interested in SNF on discharge; tolerating oral diuretic therapy with relative stabiliy in renal function/creatinine; breathing/respiratory status seems stable when seen. Exam 2 Narrative: General: elderly male in NAD Heart: normal S1 and S2; no rub Lungs: coarse with decreased breath sounds at bases Abdomen: soft, nontender, nondistended, positive bowel sounds Extremities: no cyanosis or clubbing; no edema; s/p bilateral BKAs Skin: no rash or nodules Objective Data Vital Signs Vital Signs: Vital Signs Temp Pulse Resp BP Pulse Ox O2 Del Method O2 Flow Rate 02/16/25 12:00 98.1 F 94 16 149/84 H 94 02/16/25 08:52 98 20 98 Nasal Cannula 3 02/16/25 08:45 97.3 F L 89 14 172/86 H 96 02/16/25 08:13 93 Nasal Cannula 2 02/15/25 20:30 95 Nasal Cannula 3 02/15/25 20:08 98.4 F 98 20 177/91 H 96 Intake/Output Intake/Output: Intake & Output 02/13/25 02/14/25 02/15/25 02/16/25 23:59 23:59 23:59 23:59 Intake Total 1305.8 1250.5 1524 780 Balance 1305.8 1250.5 1524 780 Meds/Results Medications: Active Medications Generic Name Dose Route Start Last Admin Trade Name Freq PRN Reason Stop Dose Admin Acetaminophen 650 mg 02/06/25 15:03 Acetaminophen 325 Mg Tablet PO Q4H PRN Mild Pain (1-3) or Fever Amlodipine Besylate 5 mg 02/12/25 09:00 02/16/25 08:52 Amlodipine Besylate 5 Mg Tablet PO 5 mg DAILY OMI Administration Apixaban 5 mg 02/13/25 21:00 02/16/25 08:52 Apixaban 5 Mg Tablet PO 5 mg Q12HR OMI Administration Benzonatate 100 mg 02/06/25 16:24 02/15/25 08:32 Benzonatate 100 Mg Capsule PO 100 mg TID PRN Administration Cough Dextrose 12.5 gm 02/06/25 15:03 Dextrose 50% 25 Gm/50 Ml Syringe IV PUSH PRN PRN Hypoglycemia Protocol Furosemide 40 mg 02/14/25 13:05 02/16/25 08:52 Furosemide 40 Mg Tablet PO 40 mg DAILY OMI Administration Glucagon 1 mg 02/06/25 15:03 02/11/25 21:37 Glucagon For Inj 1 Mg Vial IM 1 mg PRN PRN Administration Hypoglycemia Protocol Glucose 15 gm 02/06/25 15:03 Glucose Oral Gel 15 Gm Of Glucse In 37.5 Gm Tube PO PRN PRN Hypoglycemia Protocol Guaifenesin 1,200 mg 02/08/25 21:00 02/10/25 11:48 Guaifenesin 12 Hr 600 Mg Tabcr PO Not Given On Hold: 02/10/25 09:50 Q12HR OMI Hydralazine HCl 25 mg 02/07/25 17:12 Hydralazine Hcl 25 Mg Tablet PO Q8H PRN Hypertensive Emergency Dextrose 1,000 mls @ 100 mls/hr 02/06/25 15:03 Dextrose 5% 1,000 Ml IVPB PRN PRN Hypoglycemia Protocol Insulin Aspart 2 - 5 units 02/06/25 17:00 02/16/25 12:09 Insulin Aspart (*Bkc) 100 Units/Ml SUB-Q Not Given TIDWM OMI Protocol Insulin Aspart 3 units 02/11/25 08:00 02/16/25 12:06 Insulin Aspart (*Bkc) 100 Units/Ml SUB-Q 3 units TIDWM OMI Administration Insulin Glargine 5 units 02/11/25 09:00 02/16/25 08:54 Insulin Glargine (*Bkc) 100 Units/Ml SUB-Q 5 units DAILY OMI Administration Ondansetron HCl 4 mg 02/06/25 15:03 Ondansetron Inj 4 Mg/2 Ml Vial IV PUSH Q4H PRN Nausea Umeclidinium/Vilanterol 1 puff 02/10/25 10:35 02/16/25 08:13 Umeclidinium/Vilanterol 62.5-25 Mcg Ellipta INHALATION 1 puff DAILYRT OMI Administration Radiology Results: ITS Impressions Head CT 02/06/25 12:24 IMPRESSION: 1. No acute intracranial findings. Chest/Abdomen/Pelvis CTA 02/06/25 13:40 IMPRESSION: 1. No pulmonary embolism identified. 2. Moderate-sized bilateral pleural effusions. 3. Moderate-sized consolidations in the lower lobes and right middle lobe. Recommend follow-up to resolution. 4. Small to moderate size ground glass opacity scattered throughout both lungs most prominent in the upper lobes. Recommend follow-up to resolution. 5. Moderate-sized pericardial effusion. 6. Cholelithiasis. 7. Small amount of fluid and fat stranding scattered throughout the abdomen and pelvis for prominent in the right abdomen. 8. Concentric thickening of the cintron of the moderately distended bladder. Differential includes incomplete bladder wall distention, cystitis or sequelae from bladder outlet obstruction. 9. Moderate nonspecific anasarca. 10. Small bilateral fat-containing inguinal hernias, larger on the right which also contains fluid Renal Ultrasound 02/08/25 14:41 IMPRESSION: 1. No hydronephrosis. Venous Doppler Study 02/08/25 17:10 IMPRESSION: 1. Deep venous thrombosis at the bilateral popliteal veins. Findings were discussed with Polo Gee, the nurse caring for the patient, at 5:18 PM. Thoracentesis Ultrasound 02/09/25 14:20 IMPRESSION: 1. Successful ultrasound-guided thoracentesis yielding 1100 mL of straw-colored fluid. Chest X-Ray 02/14/25 12:59 IMPRESSION: 1. No significant change. 2. Pleural effusions with bibasilar atelectasis and/or airspace disease. 3. Interstitial pulmonary edema and/or pneumonitis. Labs Labs: Laboratory Tests 02/16/25 04:45 02/16/25 04:45 Calcium 8.5 Phosphorus 2.9 Albumin 3.1 L Microbiology 02/11/25 05:56 Urine Clean Catch Specimen Source - Final 02/11/25 05:56 Urine Clean Catch Streptococcus pneumoniae Ag Screen - Final 02/11/25 05:56 Urine Clean Catch Sterile Body Fluid Culture - Final 02/11/25 05:56 Urine Clean Catch Organism Identification - Final 02/11/25 05:56 Urine Clean Catch Microbiology Comment - Final 02/11/25 05:56 Urine - Urine Legionella pneumophila Serogrp 1 Ag - Preliminary
[2025-02-16 14:00] VITALS: BP 149/84; PULSE 94; RESP 16; TEMP 36.7; O2SAT 94
--- NOTE | 2025-02-16 14:14 | PCRCNOTE ---
HOME O2 EVAL COMPLETE, PT REQUIRES 2L AT CONTINUOUS. SET UP WITH [facility], PHONE NUMBER [phone]. PT HAS A TANK IN ROOM FOR DISCHARGE
--- NOTE | 2025-02-16 16:27 | P.DS_ITS ---
DS: Admitting Diagnosis Discharge Date 02/16/25 Admitting Diagnosis Shortness of Breath, Weakness DS: Discharge Diagnosis Discharge Diagnosis (1) Acute kidney injury: Code(s): N17.9 - Acute kidney failure, unspecified Status: Acute (2) Pneumonia: Qualifiers: Laterality: bilateral Lung location: unspecified part of lung Pneumonia type: due to unspecified organism Qualified Code(s): J18.9 - Pneumonia, unspecified organism Code(s): J18.9 - Pneumonia, unspecified organism Status: Acute (3) Acute hypoxic respiratory failure: Code(s): J96.01 - Acute respiratory failure with hypoxia Status: Acute DS: Summary Hospital Course Hospital Course: Reason for Admission: 69-year-old male with a complex medical history including paroxysmal atrial fibrillation, bilateral below-knee amputations, prostate cancer (s/p radiation), type 2 diabetes mellitus, hypertension, hyperlipidemia, hepatitis C, polysubstance abuse, and chronic tobacco use, presented with progressive shortness of breath, generalized weakness, and functional decline over 2 weeks. Family noted intermittent confusion. HOSPITAL COURSE: Initial Presentation: On arrival, the patient was tachycardic, hypertensive, and hypoxic, requiring 3L O2 via nasal cannula. He reported 2 weeks of worsening weakness, difficulty ambulating, and 1 week of shortness of breath and cough. No fever, chest pain, or GI symptoms. Family noted intermittent confusion. Workup: * Labs:?WBC normal, creatinine 1.52 (baseline 0.8 in 2022), BUN 34, BNP 11,000, procalcitonin 0.1, lactic acid normal, A1c 9.0%, UA with proteinuria, hematuria, pyuria. * Imaging: * CXR/CT chest/abdomen/pelvis:?Bilateral moderate pleural effusions, multifocal consolidations, ground-glass opacities, moderate pericardial effusion, anasarca, bladder wall thickening, no PE. * Echo:?LVEF 45-50%, grade 2 diastolic dysfunction, mild mitral regurgitation, trivial pericardial effusion. * Renal US:?No hydronephrosis. * Doppler US:?Bilateral popliteal DVTs. Hospital Course by Problem: * Sepsis (A41.9): * Met SIRS criteria on admission (tachycardia, tachypnea, hypoxia). * Suspected sources: multifocal pneumonia and UTI. * Blood cultures negative. * Treated empirically with ceftriaxone/azithromycin, later broadened to vancomycin, cefepime, and flagyl for worsening hypoxia/lethargy, then de- escalated as clinical status improved. * Acute on Chronic Respiratory Failure with Hypoxia and Hypercapnia (J96.21, J96.22): * Etiology: multifactorial?volume overload (CHF), bilateral pleural effusions, possible pneumonia. * Required escalating O2 support (up to 10L NC), trialed BiPAP and AVAPS but poorly tolerated. * Two large-volume thoracenteses (1100 mL each side) provided partial symptomatic relief. * Discharged on home O2 (2L NC at rest/sleep, titrate with activity). * Pleural Effusions (J90): * Bilateral, moderate, free-flowing, transudative (per Light?s criteria), noninfected. * Etiology: fluid overload (CHF, GERONIMO). * Managed with thoracenteses and cautious diuresis as renal function allowed. * Congestive Heart Failure, Acute on Chronic (I50.9): * New diagnosis, likely mixed systolic/diastolic. * Echo: LVEF 45-50%, grade 2 diastolic dysfunction, inferior/posterior hypokinesia. * BNP peaked at 23,600. * Diuresis limited by GERONIMO; resumed as renal function improved. * Outpatient workup for CAD recommended (Lexiscan Myoview). * Acute Kidney Injury (N17.9): * Multifactorial: volume overload, IV diuretics, sepsis, contrast exposure, underlying CKD risk factors. * Creatinine peaked at 3.41, improved to 1.65 with supportive care and cautious diuresis. * Nephrology followed; no need for dialysis. * Pneumonia (J18.9): * Imaging: multifocal consolidations, ground-glass opacities. * No fever, WBC normal, procalcitonin low, pleural fluid noninfected. * Treated empirically; de-escalated as cultures negative and clinical status improved. * UTI (N39.0): * UA: proteinuria, hematuria, pyuria. * Culture: Serratia marcescens. * Treated with ceftriaxone, then cefepime. * Type 2 Diabetes Mellitus (E11.9, Z79.4): * Poorly controlled (A1c 9.0%). * Managed with basal/bolus insulin, sliding scale, diabetes education. * Discharge with meter and follow-up for possible oral agent initiation. * Paroxysmal Atrial Fibrillation (I48.0): * No acute episodes during admission. * Telemetry monitoring; continued anticoagulation (Eliquis) for DVT and stroke risk. * Hypertension (I10): * Uncontrolled on admission; started on amlodipine, titrated to goal. * Bilateral Popliteal DVTs (I82.439): * Diagnosed on 02/08/2025. * Started on Eliquis 5 mg BID for 3-6 months. * Anemia (D64.9): * Mild, likely secondary to GERONIMO and acute illness. * No transfusion required. * Tobacco Dependence (F17.200): * 58 pack-year history, currently smoking. * Counseling and outpatient cessation resources provided. Other Notable Issues: * Bilateral BKA, limited mobility, prosthesis use. * History of prostate cancer (s/p XRT), hepatitis C, polysubstance abuse. * No evidence of active TB or malignancy recurrence. HOSPITAL COURSE SUMMARY: The patient was admitted with acute respiratory failure, volume overload, and GERONIMO. He required high-flow oxygen, broad-spectrum antibiotics, and two therapeutic thoracenteses. Diuresis was limited by worsening renal function but resumed as tolerated. Infectious workup was negative for bacteremia and viral pathogens. Pleural fluid was transudative and noninfected. He was anticoagulated for new bilateral DVTs. His respiratory and renal status improved with supportive care, and he was weaned to 2L O2 at rest. He received diabetes education and was stabilized on insulin. Discharge planning included home O2, anticoagulation, and close outpatient follow-up. DISCHARGE MEDICATIONS: * Eliquis 5 mg BID (for DVT/AF) * Amlodipine 5mg daily * Lantus [dose per discharge orders] * Sliding scale insulin * Anoro Ellipta 62.5-25 mcg 1 puff daily * Albuterol inhaler 2 puffs q4h PRN * Guaifenesin 1200 mg PO BID PRN * Acetaminophen PRN * Lasix 40 mg daily * Anoro * Other medications as per discharge reconciliation DISCHARGE INSTRUCTIONS: * Home O2: 2L NC at rest and with sleep; titrate with activity as needed. * DVT/PE precautions, bleeding precautions with Eliquis. * Daily weights, monitor for signs of fluid overload. * Low-sodium, diabetic diet. * Tobacco cessation resources provided. * Continue diabetes self-monitoring; follow up with hospice educator. * Outpatient follow-up with PCP, cardiology (for CHF and Lexiscan Myoview), nephrology, and pulmonology (for PFTs and possible pulmonary rehab). * discharge to SNF FOLLOW-UP APPOINTMENTS: * Primary Care: within 1 week * Cardiology: within 2 weeks * Nephrology: within 2 weeks * Pulmonology: as outpatient for PFTs and pulmonary rehab * senior health educator: as soon as possible CONDITION AT DISCHARGE: Stable, improved from admission. Ambulating with assistance. Tolerating oral in take. Oxygen saturation stable on 2L NC. Mentation at baseline. DISCHARGE TO: SNF Time Spent with Patient Time attestation: Total time spent providing and/or coordinating discharge services: DS: Data Data Completed and Pending Completed studies during hospitalization: Pending at discharge 02/08/25 13:55 Cytology [PTH] Routine 02/09/25 13:32 Cytology [PTH] Routine Labs on day of discharge: Labs from last 24 hours 02/16/25 02/16/25 02/16/25 11:21 09:34 08:12 WBC RBC Hgb Hct MCV MCH MCHC RDW Plt Count MPV Immature Gran % (Auto) Neut % (Auto) Lymph % (Auto) Sullivan % (Auto) Eos % (Auto) Baso % (Auto) Lymph # (Auto) Sullivan # (Auto) Eos # (Auto) Baso # (Auto) Abs Immat Gran (auto) Absolute Neuts (auto) Absolute Nucleated RBC Nucleated RBC % % Immature Plt Fraction Puncture Site Left brachial ABG pH 7.368 ABG pCO2 53.8 H ABG pO2 67.1 L ABG PO2/FiO2 Ratio 2.40 ABG HCO3 30.3 H ABG O2 Saturation 92.5 L ABG O2 Content 15.0 L ABG Base Excess 3.9 A-a Gradient 69.1 Oxyhemoglobin 91.8 Total Hemoglobin 11.6 L O2 Delivery Device Nasal cannula O2 Liters/Min 2.0 FiO2 28 Sodium Potassium Chloride Carbon Dioxide Anion Gap BUN Creatinine Estim Creat Clear Calc Estimated GFR Glucose POC Capillary Glucose 162 H 181 H Calcium Phosphorus Albumin 02/16/25 02/15/25 02/15/25 04:45 20:06 17:10 WBC 5.9 RBC 3.85 L Hgb 10.4 L Hct 34.4 L MCV 89.4 MCH 27.0 MCHC 30.2 L RDW 14.7 H Plt Count 123 L MPV 11.1 H Immature Gran % (Auto) 0.3 Neut % (Auto) 75.8 H Lymph % (Auto) 12.9 L Sullivan % (Auto) 9.2 H Eos % (Auto) 1.5 Baso % (Auto) 0.3 Lymph # (Auto) 0.76 L Sullivan # (Auto) 0.5 Eos # (Auto) 0.1 Baso # (Auto) 0.0 Abs Immat Gran (auto) 0.02 Absolute Neuts (auto) 4.5 Absolute Nucleated RBC 0.000 Nucleated RBC % 0.0 % Immature Plt Fraction 7.2 Puncture Site ABG pH ABG pCO2 ABG pO2 ABG PO2/FiO2 Ratio ABG HCO3 ABG O2 Saturation ABG O2 Content ABG Base Excess A-a Gradient Oxyhemoglobin Total Hemoglobin O2 Delivery Device O2 Liters/Min FiO2 Sodium 138 Potassium 4.7 Chloride 101 Carbon Dioxide 33 H Anion Gap 4 BUN 47 H Creatinine 1.65 H Estim Creat Clear Calc 44 Estimated GFR 42 L Glucose 209 H POC Capillary Glucose 335 H 214 H Calcium 8.5 Phosphorus 2.9 Albumin 3.1 L Preliminary micro results at discharge 02/11/25 05:56 Legionella pneumophila Serogrp 1 Ag - Preliminary Urine - Urine 02/09/25 13:32 Acid Fast Bacilli Culture - Preliminary Pleural Fluid 02/08/25 13:21 Acid Fast Bacilli Culture - Preliminary Pleural Fluid Discharge Plan Discharge Attending physician on discharge: Pedro Ruano Consulting providers: Tricia Whitley; Derek Sweeney; Noble Pedraza; Alanis Sullivan; Pedro Ruano Discharging Clinician: Pedro Ruano Anticipated Discharge Date/Time: 02/16/25 15:17 Patient Disposition: SNF Activity: as tolerated Diet: as tolerated and heart healthy Patient Instructions: Apixaban (By mouth), How to Stop Smoking (ED) Patient Language: Uzbek Stand Alone Forms: General Discharge Information Follow-up/Referrals: Noble Pedraza DO [Physician, Cardiology] Referral Note: F/u with cardiology as instructd Alanis Sullivan MD [Physician, Nephrology] Referral Note: F/u with nephrology as instructed UNKNOWN,DOCTOR [Primary Care Provider] Referral Note: F/u with PCP in 3-5 days Derek Sweeney MD [Physician, Pulmonology] Referral Note: F/u with Pulmonology as instructed Discharge Medications: New Eliquis 5 mg Tablet 5 mg PO Q12HR 30 Days Qty: 60 0RF furosemide 40 mg Tablet 40 mg PO DAILY 30 Days Qty: 30 0RF umeclidinium-vilanterol [Anoro Ellipta] 62.5-25 mcg/actuation Blister With Device 1 inh inhalation DAILYRT 30 Days Qty: 1 2RF amlodipine [Norvasc] 5 mg Tablet 5 mg PO DAILY 30 Days Qty: 30 0RF Continued metformin 500 mg tablet 500 mg PO BID sertraline [Zoloft] 50 mg Tablet 25 mg PO QAM Qty: 30 0RF insulin glargine [Lantus Solostar U-100 Insulin] 100 unit/mL (3 mL) insulin pen 15 unit subcut HS Qty: 15 0RF insulin lispro 100 unit/mL insulin pen 4 unit subcut AC Qty: 15 0RF Rx Instructions: Before meals, hold for a glucose <150 Date of admission: 02/07/25 10:01 Primary Care Provider: UNKNOWN,DOCTOR Admitting Provider: Riley Pearl Attending physician on admission: Riley Pearl Condition: Serious
--- NOTE | 2025-02-16 16:27 | PM.DS ---
DS: Admitting Diagnosis Discharge Date 02/16/25 Admitting Diagnosis Shortness of Breath, Weakness DS: Discharge Diagnosis Discharge Diagnosis (1) Acute kidney injury: Code(s): N17.9 - Acute kidney failure, unspecified Status: Acute (2) Pneumonia: Qualifiers: Laterality: bilateral Lung location: unspecified part of lung Pneumonia type: due to unspecified organism Qualified Code(s): J18.9 - Pneumonia, unspecified organism Code(s): J18.9 - Pneumonia, unspecified organism Status: Acute (3) Acute hypoxic respiratory failure: Code(s): J96.01 - Acute respiratory failure with hypoxia Status: Acute DS: Summary Hospital Course Hospital Course: Reason for Admission: 69-year-old male with a complex medical history including paroxysmal atrial fibrillation, bilateral below-knee amputations, prostate cancer (s/p radiation), type 2 diabetes mellitus, hypertension, hyperlipidemia, hepatitis C, polysubstance abuse, and chronic tobacco use, presented with progressive shortness of breath, generalized weakness, and functional decline over 2 weeks. Family noted intermittent confusion. HOSPITAL COURSE: Initial Presentation: On arrival, the patient was tachycardic, hypertensive, and hypoxic, requiring 3L O2 via nasal cannula. He reported 2 weeks of worsening weakness, difficulty ambulating, and 1 week of shortness of breath and cough. No fever, chest pain, or GI symptoms. Family noted intermittent confusion. Workup: Labs:?WBC normal, creatinine 1.52 (baseline 0.8 in 2022), BUN 34, BNP 11,000, procalcitonin 0.1, lactic acid normal, A1c 9.0%, UA with proteinuria, hematuria, pyuria. Imaging: CXR/CT chest/abdomen/pelvis:?Bilateral moderate pleural effusions, multifocal consolidations, ground-glass opacities, moderate pericardial effusion, anasarca, bladder wall thickening, no PE. Echo:?LVEF 45-50%, grade 2 diastolic dysfunction, mild mitral regurgitation, trivial pericardial effusion. Renal US:?No hydronephrosis. Doppler US:?Bilateral popliteal DVTs. Hospital Course by Problem: Sepsis (A41.9): Met SIRS criteria on admission (tachycardia, tachypnea, hypoxia). Suspected sources: multifocal pneumonia and UTI. Blood cultures negative. Treated empirically with ceftriaxone/azithromycin, later broadened to vancomycin, cefepime, and flagyl for worsening hypoxia/lethargy, then de-escalated as clinical status improved. Acute on Chronic Respiratory Failure with Hypoxia and Hypercapnia (J96.21, J96.22): Etiology: multifactorial?volume overload (CHF), bilateral pleural effusions, possible pneumonia. Required escalating O2 support (up to 10L NC), trialed BiPAP and AVAPS but poorly tolerated. Two large-volume thoracenteses (1100 mL each side) provided partial symptomatic relief. Discharged on home O2 (2L NC at rest/sleep, titrate with activity). Pleural Effusions (J90): Bilateral, moderate, free-flowing, transudative (per Light?s criteria), noninfected. Etiology: fluid overload (CHF, GERONIMO). Managed with thoracenteses and cautious diuresis as renal function allowed. Congestive Heart Failure, Acute on Chronic (I50.9): New diagnosis, likely mixed systolic/diastolic. Echo: LVEF 45-50%, grade 2 diastolic dysfunction, inferior/posterior hypokinesia. BNP peaked at 23,600. Diuresis limited by GERONIMO; resumed as renal function improved. Outpatient workup for CAD recommended (Bycleriscan Myoview). Acute Kidney Injury (N17.9): Multifactorial: volume overload, IV diuretics, sepsis, contrast exposure, underlying CKD risk factors. Creatinine peaked at 3.41, improved to 1.65 with supportive care and cautious diuresis. Nephrology followed; no need for dialysis. Pneumonia (J18.9): Imaging: multifocal consolidations, ground-glass opacities. No fever, WBC normal, procalcitonin low, pleural fluid noninfected. Treated empirically; de-escalated as cultures negative and clinical status improved. UTI (N39.0): UA: proteinuria, hematuria, pyuria. Culture: Serratia marcescens. Treated with ceftriaxone, then cefepime. Type 2 Diabetes Mellitus (E11.9, Z79.4): Poorly controlled (A1c 9.0%). Managed with basal/bolus insulin, sliding scale, diabetes education. Discharge with meter and follow-up for possible oral agent initiation. Paroxysmal Atrial Fibrillation (I48.0): No acute episodes during admission. Telemetry monitoring; continued anticoagulation (Eliquis) for DVT and stroke risk. Hypertension (I10): Uncontrolled on admission; started on amlodipine, titrated to goal. 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 Started on Eliquis 5 mg BID for 3-6 months. Anemia (D64.9): Mild, likely secondary to GERONIMO and acute illness. No transfusion required. Tobacco Dependence (F17.200): 58 pack-year history, currently smoking. Counseling and outpatient cessation resources provided. Other Notable Issues: Bilateral BKA, limited mobility, prosthesis use. History of prostate cancer (s/p XRT), hepatitis C, polysubstance abuse. No evidence of active TB or malignancy recurrence. HOSPITAL COURSE SUMMARY: The patient was admitted with acute respiratory failure, volume overload, and GERONIMO. He required high-flow oxygen, broad-spectrum antibiotics, and two therapeutic thoracenteses. Diuresis was limited by worsening renal function but resumed as tolerated. Infectious workup was negative for bacteremia and viral pathogens. Pleural fluid was transudative and noninfected. He was anticoagulated for new bilateral DVTs. His respiratory and renal status improved with supportive care, and he was weaned to 2L O2 at rest. He received diabetes education and was stabilized on insulin. Discharge planning included home O2, anticoagulation, and close outpatient follow-up. DISCHARGE MEDICATIONS: Eliquis 5 mg BID (for DVT/AF) Amlodipine 5mg daily Lantus [dose per discharge orders] Sliding scale insulin Anoro Ellipta 62.5-25 mcg 1 puff daily Albuterol inhaler 2 puffs q4h PRN Guaifenesin 1200 mg PO BID PRN Acetaminophen PRN Lasix 40 mg daily Anoro Other medications as per discharge reconciliation DISCHARGE INSTRUCTIONS: Home O2: 2L NC at rest and with sleep; titrate with activity as needed. DVT/PE precautions, bleeding precautions with Eliquis. Daily weights, monitor for signs of fluid overload. Low-sodium, diabetic diet. Tobacco cessation resources provided. Continue diabetes self-monitoring; follow up with wellness educator. Outpatient follow-up with PCP, cardiology (for CHF and Lexiscan Myoview), nephrology, and pulmonology (for PFTs and possible pulmonary rehab). discharge to [facility] FOLLOW-UP APPOINTMENTS: Primary Care: within 1 week Cardiology: within 2 weeks Nephrology: within 2 weeks Pulmonology: as outpatient for PFTs and pulmonary rehab family living educator: as soon as possible CONDITION AT DISCHARGE: Stable, improved from admission. Ambulating with assistance. Tolerating oral intake. Oxygen saturation stable on 2L NC. Mentation at baseline. DISCHARGE TO: SNF Time Spent with Patient Time attestation: Total time spent providing and/or coordinating discharge services: DS: Data Data Completed and Pending Completed studies during hospitalization: Pending at discharge 02/08/25 13:55 Cytology [PTH] Routine 02/09/25 13:32 Cytology [PTH] Routine Labs on day of discharge: Labs from last 24 hours 02/16/25 02/16/25 02/16/25 11:21 09:34 08:12 WBC RBC Hgb Hct MCV MCH MCHC RDW Plt Count MPV Immature Gran % (Auto) Neut % (Auto) Lymph % (Auto) Banner % (Auto) Eos % (Auto) Baso % (Auto) Lymph # (Auto) Banner # (Auto) Eos # (Auto) Baso # (Auto) Abs Immat Gran (auto) Absolute Neuts (auto) Absolute Nucleated RBC Nucleated RBC % % Immature Plt Fraction Puncture Site Left brachial ABG pH 7.368 ABG pCO2 53.8 H ABG pO2 67.1 L ABG PO2/FiO2 Ratio 2.40 ABG HCO3 30.3 H ABG O2 Saturation 92.5 L ABG O2 Content 15.0 L ABG Base Excess 3.9 A-a Gradient 69.1 Oxyhemoglobin 91.8 Total Hemoglobin 11.6 L O2 Delivery Device Nasal cannula O2 Liters/Min 2.0 FiO2 28 Sodium Potassium Chloride Carbon Dioxide Anion Gap BUN Creatinine Estim Creat Clear Calc Estimated GFR Glucose POC Capillary Glucose 162 H 181 H Calcium Phosphorus Albumin 02/16/25 02/15/25 02/15/25 04:45 20:06 17:10 WBC 5.9 RBC 3.85 L Hgb 10.4 L Hct 34.4 L MCV 89.4 MCH 27.0 MCHC 30.2 L RDW 14.7 H Plt Count 123 L MPV 11.1 H Immature Gran % (Auto) 0.3 Neut % (Auto) 75.8 H Lymph % (Auto) 12.9 L Banner % (Auto) 9.2 H Eos % (Auto) 1.5 Baso % (Auto) 0.3 Lymph # (Auto) 0.76 L Banner # (Auto) 0.5 Eos # (Auto) 0.1 Baso # (Auto) 0.0 Abs Immat Gran (auto) 0.02 Absolute Neuts (auto) 4.5 Absolute Nucleated RBC 0.000 Nucleated RBC % 0.0 % Immature Plt Fraction 7.2 Puncture Site ABG pH ABG pCO2 ABG pO2 ABG PO2/FiO2 Ratio ABG HCO3 ABG O2 Saturation ABG O2 Content ABG Base Excess A-a Gradient Oxyhemoglobin Total Hemoglobin O2 Delivery Device O2 Liters/Min FiO2 Sodium 138 Potassium 4.7 Chloride 101 Carbon Dioxide 33 H Anion Gap 4 BUN 47 H Creatinine 1.65 H Estim Creat Clear Calc 44 Estimated GFR 42 L Glucose 209 H POC Capillary Glucose 335 H 214 H Calcium 8.5 Phosphorus 2.9 Albumin 3.1 L Preliminary micro results at discharge 02/11/25 05:56 Legionella pneumophila Serogrp 1 Ag - Preliminary Urine - Urine 02/09/25 13:32 Acid Fast Bacilli Culture - Preliminary Pleural Fluid 02/08/25 13:21 Acid Fast Bacilli Culture - Preliminary Pleural Fluid Discharge Plan Discharge Attending physician on discharge: Pedro Ruano Consulting providers: Tricia Whitley; Derek Sweeney; Noble Pedraza; Alanis Sullivan; Pedro Ruano Discharging Clinician: Pedro Ruano Anticipated Discharge Date/Time: 02/16/25 15:17 Patient Disposition: SNF Activity: as tolerated Diet: as tolerated and heart healthy Patient Instructions: Apixaban (By mouth), How to Stop Smoking (ED) Patient Language: Uzbek Stand Alone Forms: General Discharge Information Follow-up/Referrals: Noble Pedraza DO [Physician, Cardiology] Referral Note: F/u with cardiology as instructd Alanis Sullivan MD [Physician, Nephrology] Referral Note: F/u with nephrology as instructed UNKNOWN,DOCTOR [Primary Care Provider] Referral Note: F/u with PCP in 3-5 days Derek Sweeney MD [Physician, Pulmonology] Referral Note: F/u with Pulmonology as instructed Discharge Medications: New Eliquis 5 mg Tablet 5 mg PO Q12HR 30 Days Qty: 60 0RF furosemide 40 mg Tablet 40 mg PO DAILY 30 Days Qty: 30 0RF umeclidinium-vilanterol [Anoro Ellipta] 62.5-25 mcg/actuation Blister With Device 1 inh inhalation DAILYRT 30 Days Qty: 1 2RF amlodipine [Norvasc] 5 mg Tablet 5 mg PO DAILY 30 Days Qty: 30 0RF Continued metformin 500 mg tablet 500 mg PO BID sertraline [Zoloft] 50 mg Tablet 25 mg PO QAM Qty: 30 0RF insulin glargine [Lantus Solostar U-100 Insulin] 100 unit/mL (3 mL) insulin pen 15 unit subcut HS Qty: 15 0RF insulin lispro 100 unit/mL insulin pen 4 unit subcut AC Qty: 15 0RF Rx Instructions: Before meals, hold for a glucose <150 Date of admission: 02/07/25 10:01 Primary Care Provider: UNKNOWN,DOCTOR Admitting Provider: Riley Pearl Attending physician on admission: Riley Pearl Condition: Serious
== END 2025-02-16 17:28 | DRG 871 ==
LOC: ANHED 12:32 → ANHIMU 15:47 → ANH2MED 02-11 12:39
PROVIDERS: Emergency Medicine; Internal Medicine; Internal Medicine Nephrology; Internal Medicine Pulmonary Disease; Nurse Practitioner Acute Care; Student in an Organized Health Care Education/Training Program; Admitting Provider Internal Medicine; Emergency Provider Physician Assistant; Visit Provider Internal Medicine
DX: A41.9 Sepsis, unspecified organism (principal); I50.43 Acute on chronic combined systolic (congestive) and diastolic (congestive) heart failure; J18.9 Pneumonia, unspecified organism; J96.21 Acute and chronic respiratory failure with hypoxia; J96.22 Acute and chronic respiratory failure with hypercapnia; J90 Pleural effusion, not elsewhere classified; N17.9 Acute kidney failure, unspecified; N30.00 Acute cystitis without hematuria; I82.433 Acute embolism and thrombosis of popliteal vein, bilateral; I48.0 Paroxysmal atrial fibrillation; B96.89 Other specified bacterial agents as the cause of diseases classified elsewhere; D64.9 Anemia, unspecified; E11.319 Type 2 diabetes mellitus with unspecified diabetic retinopathy without macular edema; E78.5 Hyperlipidemia, unspecified; F41.9 Anxiety disorder, unspecified; F32.A Depression, unspecified; F19.10 Other psychoactive substance abuse, uncomplicated; F17.210 Nicotine dependence, cigarettes, uncomplicated; I11.0 Hypertensive heart disease with heart failure; K21.9 Gastro-esophageal reflux disease without esophagitis; Z20.822 Contact with and (suspected) exposure to COVID-19; Z79.01 Long term (current) use of anticoagulants; Z79.4 Long term (current) use of insulin; Z79.84 Long term (current) use of oral hypoglycemic drugs; Z85.46 Personal history of malignant neoplasm of prostate; Z92.3 Personal history of irradiation; Z89.512 Acquired absence of left leg below knee; Z89.511 Acquired absence of right leg below knee; Z86.11 Personal history of tuberculosis; Z90.49 Acquired absence of other specified parts of digestive tract; Z66 Do not resuscitate
CPT/HCPCS: 32555; 36415; 36600; 70450; 71045; 71046; 71275; 74177; 76770; 80048; 80053; 80069; 80202; 81001; 82042; 82043; 82103; 82104; 82375; 82550; 82565; 82570; 82805; 82945; 82948; 83036; 83050; 83605; 83615; 83735; 83880; 83986; 84145; 84155; 84156; 84157; 84300; 84439; 84443; 84478; 84484; 84540; 85018; 85025; 85055; 85380; 85610; 85730; 85999; 86140; 86703; 86738; 87040; 87086; 87186; 87205; 87206; 87449; 87637; 87641; 87899; 88108; 88305; 88342; 89051; 93005; 93306; 93970; 94002; 94003; 94618; 94640; 94667; 94668; 94762; 96361; 96365; 96367; 96375; 97110; 97162; 97165; 97530; 97535; 99285; A9270; G0378; G0432; J0456; J0692; J0696; J1610; J1644; J1650; J1815; J1938; J1939; J3373; J7030; J7050; J7512; Q9967